=== PATIENT | female | born 1975 | race Two or more races ===

== ENCOUNTER 2020-03-29 15:42 | Outpatient (REF) | payer MEDICAID, SELFPAY ==
--- NOTE | 2020-03-29 | US_ITS ---
EXAMINATION: US VENOUS ULTRASOUND WITH DOPPLER LOWER EXTREMITY, LEFT CLINICAL INFORMATION: Edema. Pain. COMPARISON: Ultrasound venous Doppler study right lower extremity 12/05/2017 TECHNIQUE: Ultrasound of the deep veins is performed from the hip to the calf with compression sonography and color and pulse Doppler assessment. Spectral analysis with color-flow imaging is performed. FINDINGS: There is normal venous compression and respiratory variation and augmented flow. The visualized common femoral vein, superficial femoral vein, profunda femoral vein, popliteal vein, and the trifurcation region shows no evidence of deep venous thrombosis. There is no significant popliteal fossa cyst. If the patient's symptoms persist, followup ultrasound in 5 days 7 days might be of value to exclude proximal propagation from a non-visualized calf vein. US/US venous duplex LE IMPRESSION: No DVT demonstrated in the left lower extremity.
== END 2020-03-29 15:43 | disposition home or self-care (01) ==
LOC: HO.US 15:42
PROVIDERS: PCP Emergency Medicine; Visit Provider Emergency Medicine
DX: M79.662 Pain in left lower leg (principal); M79.89 Other specified soft tissue disorders
CPT/HCPCS: 93971

== ENCOUNTER 2020-04-29 13:42 | Outpatient (REF) | payer MEDICAID, SELFPAY ==
--- NOTE | 2020-04-29 | XR_ITS ---
EXAMINATION: XR SHOULDER, RIGHT XR KNEE, RIGHT CLINICAL INFORMATION: Right shoulder and right knee pain. COMPARISON: None TECHNIQUE: AP, Grashey, and scapular Y views of the right shoulder. AP, lateral, and sunrise views of the right knee. FINDINGS: RIGHT SHOULDER: No acute fracture or dislocation. Small acromioclavicular marginal osteophytes. Small subacromial spurring. No osseous erosion. RIGHT KNEE: No acute fracture or dislocation. Mild lateral compartment joint space narrowing. Tricompartmental marginal osteophytes. Chondrocalcinosis versus multiple small loose bodies. Small joint effusion. XR/XR shoulder RT min 2V IMPRESSION: Right shoulder: Mild acromioclavicular osteoarthritis and small lateral subacromial spurs. Right knee: Mild tricompartmental osteoarthritis. Chondrocalcinosis versus multiple small loose bodies. Small joint effusion.
--- NOTE | 2020-04-29 | XR_ITS ---
EXAMINATION: XR SHOULDER, RIGHT XR KNEE, RIGHT CLINICAL INFORMATION: Right shoulder and right knee pain. COMPARISON: None TECHNIQUE: AP, Grashey, and scapular Y views of the right shoulder. AP, lateral, and sunrise views of the right knee. FINDINGS: RIGHT SHOULDER: No acute fracture or dislocation. Small acromioclavicular marginal osteophytes. Small subacromial spurring. No osseous erosion. RIGHT KNEE: No acute fracture or dislocation. Mild lateral compartment joint space narrowing. Tricompartmental marginal osteophytes. Chondrocalcinosis versus multiple small loose bodies. Small joint effusion. XR/XR knee RT 3V IMPRESSION: Right shoulder: Mild acromioclavicular osteoarthritis and small lateral subacromial spurs. Right knee: Mild tricompartmental osteoarthritis. Chondrocalcinosis versus multiple small loose bodies. Small joint effusion.
== END 2020-04-29 13:43 | disposition home or self-care (01) ==
LOC: HO.XRAY 13:42
PROVIDERS: PCP Family Medicine; Visit Provider Family Medicine
DX: M25.511 Pain in right shoulder (principal); M25.561 Pain in right knee
CPT/HCPCS: 73030; 73562

== ENCOUNTER 2020-05-11 13:00 | Outpatient (REF) | payer MEDICAID, SELFPAY ==
--- NOTE | 2020-05-11 11:11 | US_ITS ---
EXAMINATION: US VENOUS ULTRASOUND WITH DOPPLER LOWER EXTREMITY, BILATERAL CLINICAL INFORMATION: Bilateral lower extremity swelling and pain. COMPARISON: Left lower extremity DVT study done on 03/29/2020. TECHNIQUE: Ultrasound of the deep veins is performed from the hip to the calf with compression sonography and color and pulse Doppler assessment. Spectral analysis with color-flow imaging is performed. FINDINGS: Slightly technically limited study since patient was unable to tolerate adequate compression. RIGHT: There is normal venous compression and respiratory variation and augmented flow. The visualized common femoral vein, superficial femoral vein, profunda femoral vein, popliteal vein, and the trifurcation region shows no evidence of deep venous thrombosis. There is no significant popliteal fossa cyst. LEFT: There is normal venous compression and respiratory variation and augmented flow. The visualized common femoral vein, superficial femoral vein, profunda femoral vein, popliteal vein, and the trifurcation region shows no evidence of deep venous thrombosis. There is no significant popliteal fossa cyst. If the patient's symptoms persist, followup ultrasound in 5 days 7 days might be of value to exclude proximal propagation from a non-visualized calf vein. US/US venous duplex LE BI IMPRESSION: No DVT demonstrated in the bilateral lower extremity.
== END 2020-05-11 13:01 | disposition home or self-care (01) ==
LOC: HO.US 13:00
PROVIDERS: PCP Family Medicine; Visit Provider Family Medicine
DX: R60.0 Localized edema (principal); M79.89 Other specified soft tissue disorders; M79.605 Pain in left leg; M79.604 Pain in right leg
CPT/HCPCS: 93970

== ENCOUNTER 2020-06-14 10:40 | Emergency (ER) | payer MEDICAID, SELFPAY ==
--- NOTE | ~2020-06-14 | XR_ITS ---
EXAMINATION: XR CHEST CLINICAL INFORMATION: Question aspiration pneumonia. COMPARISON: 06/17/2019 TECHNIQUE: Frontal view of the chest was obtained. FINDINGS: Spinal hardware in place. The lungs are well expanded. Mild streaky opacities are seen at the right base. No edema or effusion. No pneumothorax. The cardiomediastinal silhouette is within normal limits. No acute osseous abnormality. XR/XR chest 1V IMPRESSION: Streaky right basilar opacities are noted which could be auto claim representative of atelectasis, although aspiration is possible.
[2020-06-14 10:51] VITALS: BP 128/82; PULSE 116; RESP 20; TEMP 37.1; O2SAT 95; BMI 45.1
[2020-06-14 12:23] LABS: Basophils Absolute Auto 0.1 X10*3/uL (0.0-0.2); Basophils Percent Auto 0.2 % (0-2); Hematocrit 43.7 % (37-47); Hemoglobin 13.3 g/dl (12.0-16.0); Imm Gran Abs Auto 0.23 X10*3/uL (0.00-0.03); Imm Gran Pct Auto 0.9 % (0.0-0.4); Lymphocytes Absolute Auto 1.4 X10*3/uL (1.2-4.9); Lymphocytes Percent Auto 5.9 % (20-40); MANUAL DIFF FLAG SCAN; Mean Corpuscular HGB Conc 30.4 g/dl (31.0-35.0); Mean Corpuscular Volume 82.3 fL (80-98); Monocytes Absolute Auto 1.2 X10*3/uL (0.1-1.2); Monocytes Percent Auto 4.9 % (2-11); Neutrophils Absolute Auto 21.4 X10*3/uL (2.0-8.3); Neutrophils Percent Auto 88.1 % (45-73); Platelet Count 254 X10*3/uL (160-400); Red Blood Count 5.31 X10*6/uL (4.20-5.50); Red Cell Distribution Width 16.3 % (11.0-16.0); SCAN SMEAR FLAG 1; White Blood Count 24.3 X10*3/uL (4.8-10.8)
[2020-06-14 12:51] LABS: Alanine Aminotransferase 22 U/L (0-31); Albumin Level 4.2 g/dL (3.5-5.0); Alkaline Phosphatase 75 U/L (39-117); Aspartate Amino Transferase 18 U/L (5-31); Bilirubin Direct 0.4 mg/dL (0.0-0.5); Bilirubin Total 0.8 mg/dL (0.0-1.0); Blood Urea Nitrogen 15 mg/dL (9-16); Calcium 9.3 mg/dL (8.4-10.2); Creatinine Clr Calc Pharmacy 131.2; Estimated Glomerular Filt Rate > 60; Glucose Random 103 mg/dL (60-115); Lipase 20 U/L (8-78); Total Protein 7.4 g/dL (6.5-8.0)
[2020-06-14 13:11] LABS: Anion Gap 13 (12-20); Carbon Dioxide 29 mmol/L (22-29); Chloride 103 mmol/L (96-108); Potassium 3.9 mmol/L (3.3-5.1); Sodium 141 mmol/L (135-145)
[2020-06-14 13:45] LABS: SLIDE REVIEW VERIFIED
[2020-06-14 15:12] LABS: Glucose Urine UA NEG (NEG); Leukocyte Esterase Urine TRACE (NEG); Nitrite Urine POS (NEG); PH 5.5 (5.0-8.0); Specific Gravity - Urine >= 1.030 (1.005-1.025); UACC Culture Trigger YES; Urine Blood NEG (NEG); Urine Ketones 15 MG/DL (NEG); Urine Protein TRACE MG/DL (NEG-TRACE)
[2020-06-14 15:13] LABS: Appearance Urine CLOUDY; Color Urine YELLOW
[2020-06-14 15:25] LABS: Amorphous Sediment Urine 3+ /LPF; Bacteria Urine TRACE /LPF; Mucus Urine 2+ /LPF; RBC Urine 0-2 /HPF (0); Squamous Epithelial Cell Urine 2+ /LPF
[2020-06-14 15:26] LABS: UPreg QC Valid YES; Urine Pregnancy NEGATIVE (NEGATIVE)
--- NOTE | 2020-06-14 15:40 | ED.NAVMDI ---
HPI - Nausea/Vomiting/Diarrhea General Chief complaint: Nausea/Vomiting/Diarrhea Stated complaint: choking sensation Time Seen by Provider: 06/14/20 14:10 Source: patient, family (Mother) and lacquer coater Mode of arrival: ambulatory Limitations: no limitations History of Present Illness HPI Narrative: 45-year-old female who is with history of mental challenge, patient yesterday was eating rice with checking patient shook on piece of chicken last night, patient refused to eat since last night, patient was not able to swallow liquids. Patient was seen in the emergency department, by then patient is able to swallow fluids with no vomiting, patient feels swelling is passing down, patient now feels hungry again was able to tolerate p.o. intake, patient has no coughing, no fever, no hypoxia. Patient had a history of aspiration pneumonia. Patient only complained of slight pain in the upper throat area but able to tolerate p.o. intake now. No abdominal pain. Related Data Previous Rx's Medication Instructions Recorded omeprazole magnesium [Prilosec OTC] 20 mg PO BID #30 tab 06/14/20 Allergies Allergy/AdvReac Type Severity Reaction Status Date / Time No Known Allergies Allergy Unknown Unverified 12/25/19 15:35 [No Known Allergies*] Review of Systems Review of Systems: All other systems are reviewed and are negative Constitutional: Reports as per HPI and Reports no additional constitutional complaints Eyes: Reports as per HPI and Reports no additional eye complaints Reports system reviewed and no additional complaints, except as documented Cardiovascular: Reports as per HPI and Reports no additional cardiovascular complaints Respiratory: Reports as per HPI and Reports no additional respiratory complaints Gastrointestinal: Reports as per HPI and Reports no additional gastrointestinal complaints Genitourinary: Reports no additional female genitourinary complaints Musculoskeletal: Reports no additional musculoskeletal complaints Skin/Breast: Reports system reviewed and no additional complaints, except as docu Psychiatric: Reports no additional psychiatric complaints Endocrine: Reports no additional endocrine complaints Hematologic/Lymphatic: Reports no additional hematologic/lymphatic complaints Allergic/Immunologic: Reports no additional allergic/immunologic complaints Reports system reviewed and no additional complaints, except as documented and Reports Abnormal speech present [facility] Past Medical History Medical History Asthma Oxygen desaturation during sleep Social History Social History Advance Directives: No Advance Directives Information Provided: No Physical Exam Vital Signs: Vital Signs: Last Vital Signs Temp 98.8 F 06/14/20 10:51 Pulse 116 H 06/14/20 10:51 Resp 20 06/14/20 10:51 BP 128/82 06/14/20 10:51 Pulse Ox 95 06/14/20 10:51 Body Mass Index 45.1 Course Course Course Narrative: Assessment and plan. 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 intake. Patient has a leukocytosis of 23,000 which is a concern, patient's exam/chest x-ray/vital signs not indicated for aspiration pneumonia. Will discharge the patient with percussion to come back if any fever or coughing. MDM - Nausea/Vomiting/Diarrhea Lab Data Attestation: I reviewed the patient's lab results. Result diagrams: 06/14/20 12:01 06/14/20 12:01 Labs: Lab Results 06/14/20 06/14/20 06/14/20 Range/Units 12:01 12:01 15:04 WBC 24.3 H (4.8-10.8) X10*3/uL RBC 5.31 (4.20-5.50) X10*6/uL Hgb 13.3 (12.0-16.0) g/dl Hct 43.7 (37-47) % MCV 82.3 (80-98) fL MCH 25.0 L (27.0-33.0) pg MCHC 30.4 L (31.0-35.0) g/dl RDW 16.3 H (11.0-16.0) % Plt Count 254 (160-400) X10*3/uL MPV 12.0 (9.4-12.3) fL Immature Gran % (Auto) 0.9 H (0.0-0.4) % Neut % (Auto) 88.1 H (45-73) % Lymph % (Auto) 5.9 L (20-40) % [place]y % (Auto) 4.9 (2-11) % Eos % (Auto) 0.0 (0-4) % Baso % (Auto) 0.2 (0-2) % Lymph # (Auto) 1.4 (1.2-4.9) X10*3/uL [place] # (Auto) 1.2 (0.1-1.2) X10*3/uL Eos # (Auto) 0.0 (0.0-0.4) X10*3/uL Baso # (Auto) 0.1 (0.0-0.2) X10*3/uL Abs Immat Gran (auto) 0.23 H (0.00-0.03) X10*3/uL Absolute Neuts (auto) 21.4 H (2.0-8.3) X10*3/uL Absolute Nucleated RBC 0.000 (0.0-0.012) X10*3/uL Nucleated RBC % (auto) 0.0 (0.0-0.2) /100WBC Smear Tech's Comments VERIFIED Sodium 141 (135-145) mmol/L Potassium 3.9 (3.3-5.1) mmol/L Chloride 103 (96-108) mmol/L Carbon Dioxide 29 (22-29) mmol/L Anion Gap 13 (12-20) BUN 15 (9-16) mg/dL Creatinine 0.64 (0.5-1.4) mg/dL Estim Creat Clear Calc 131.2 Estimated GFR > 60 Random Glucose 103 (60-115) mg/dL Calcium 9.3 (8.4-10.2) mg/dL Total Bilirubin 0.8 (0.0-1.0) mg/dL Direct Bilirubin 0.4 (0.0-0.5) mg/dL AST 18 (5-31) U/L ALT 22 (0-31) U/L Alkaline Phosphatase 75 (39-117) U/L Total Protein 7.4 (6.5-8.0) g/dL Albumin 4.2 (3.5-5.0) g/dL Lipase 20 (8-78) U/L Urine Color YELLOW Urine Appearance CLOUDY Urine pH 5.5 (5.0-8.0) Ur Specific [place] >= 1.030 H (1.005-1.025) Urine Protein TRACE (NEG-TRACE) MG/DL Urine Glucose (UA) NEG (NEG) MG/DL Urine Ketones 15 (NEG) MG/DL Urine Blood NEG (NEG) Urine Nitrite POS H (NEG) Ur Leukocyte Esterase TRACE H (NEG) Urine RBC 0-2 (0) /HPF Urine WBC 1-4 (0-4) /HPF Ur Squamous Epith Cells 2+ /LPF Amorphous Sediment 3+ /LPF Urine Bacteria TRACE /LPF Urine Mucus 2+ /LPF Urine Test (NEGATIVE) 06/14/20 Range/Units 15:04 WBC (4.8-10.8) X10*3/uL RBC (4.20-5.50) X10*6/uL Hgb (12.0-16.0) g/dl Hct (37-47) % MCV (80-98) fL MCH (27.0-33.0) pg MCHC (31.0-35.0) g/dl RDW (11.0-16.0) % Plt Count (160-400) X10*3/uL MPV (9.4-12.3) fL Immature Gran % (Auto) (0.0-0.4) % Neut % (Auto) (45-73) % Lymph % (Auto) (20-40) % [place]y % (Auto) (2-11) % Eos % (Auto) (0-4) % Baso % (Auto) (0-2) % Lymph # (Auto) (1.2-4.9) X10*3/uL [place] # (Auto) (0.1-1.2) X10*3/uL Eos # (Auto) (0.0-0.4) X10*3/uL Baso # (Auto) (0.0-0.2) X10*3/uL Abs Immat Gran (auto) (0.00-0.03) X10*3/uL Absolute Neuts (auto) (2.0-8.3) X10*3/uL Absolute Nucleated RBC (0.0-0.012) X10*3/uL Nucleated RBC % (auto) (0.0-0.2) /100WBC Smear Tech's Comments Sodium (135-145) mmol/L Potassium (3.3-5.1) mmol/L Chloride (96-108) mmol/L Carbon Dioxide (22-29) mmol/L Anion Gap (12-20) BUN (9-16) mg/dL Creatinine (0.5-1.4) mg/dL Estim Creat Clear Calc Estimated GFR Random Glucose (60-115) mg/dL Calcium (8.4-10.2) mg/dL Total Bilirubin (0.0-1.0) mg/dL Direct Bilirubin (0.0-0.5) mg/dL AST (5-31) U/L ALT (0-31) U/L Alkaline Phosphatase (39-117) U/L Total Protein (6.5-8.0) g/dL Albumin (3.5-5.0) g/dL Lipase (8-78) U/L Urine Color Urine Appearance Urine pH (5.0-8.0) Ur Specific [place] (1.005-1.025) Urine Protein (NEG-TRACE) MG/DL Urine Glucose (UA) (NEG) MG/DL Urine Ketones (NEG) MG/DL Urine Blood (NEG) Urine Nitrite (NEG) Ur Leukocyte Esterase (NEG) Urine RBC (0) /HPF Urine WBC (0-4) /HPF Ur Squamous Epith Cells /LPF Amorphous Sediment /LPF Urine Bacteria /LPF Urine Mucus /LPF Urine Test NEGATIVE (NEGATIVE) Discharge Plan Discharge Clinical Impression: Esophageal obstruction due to food impaction Leukocytosis Qualifiers: Leukocytosis type: unspecified Qualified Code(s): D72.829 - Elevated white blood cell count, unspecified Patient Disposition: Home, Self-Care Instructions: Esophagitis (ED) Additional Instructions: 1. Come back to the emergency department if any fever or difficulty breathing or coughing. 2. Can resume normal activities. Prescriptions: New omeprazole magnesium [Prilosec OTC] 20 mg tablet,delayed release (DR/EC) 20 mg PO BID Qty: 30 RF: 0 Referrals: Miranda Maravilla DO [Primary Care Provider] - 2 days
== END 2020-06-14 16:07 | disposition home or self-care (01) ==
PROVIDERS: Emergency Provider Emergency Medicine; PCP Family Medicine
DX: T18.128D Food in esophagus causing other injury, subsequent encounter (principal); X58.XXXD Exposure to other specified factors, subsequent encounter; D72.829 Elevated white blood cell count, unspecified
CPT/HCPCS: 36415; 71045; 80048; 80076; 81001; 81003; 81025; 83690; 85025; 87086; 99283

== ENCOUNTER 2020-06-24 12:29 | Outpatient (REF) | payer MEDICAID, SELFPAY ==
--- NOTE | ~2020-06-24 | XR_ITS ---
EXAMINATION: XR CHEST CLINICAL INFORMATION: Cough. COMPARISON: Chest 06/14/2020 TECHNIQUE: Two views of the chest were obtained. FINDINGS: The lungs are well expanded with no acute process. The heart size and pulmonary vascularity is normal. There are 2 Aguayo rods extending from upper thoracic to upper lumbar spine. Otherwise, no gross bony abnormality. XR/XR chest 2V IMPRESSION: Unremarkable chest exam.
== END 2020-06-24 12:30 | disposition home or self-care (01) ==
LOC: HO.XRAY 12:29
PROVIDERS: PCP Family Medicine; Visit Provider Family Medicine
DX: R05 Cough (principal)
CPT/HCPCS: 71046

== ENCOUNTER 2020-08-02 13:50 | Outpatient (REF) | payer MEDICAID, SELFPAY ==
--- NOTE | ~2020-08-02 | XR_ITS ---
EXAMINATION: THORACIC AND LUMBAR SPINE X-RAY CLINICAL INFORMATION: Pain. History of scoliosis. COMPARISON: Previous chest x-ray June 2019 TECHNIQUE: 3 views of the thoracic spine and 3 views of the lumbar spine FINDINGS: Thoracic spine: There is a severe scoliosis of the mid and lower thoracic spine to the right. There is posterior fusion hardware with rods from T7-L1. Orthopedic hardware appears intact. This is unchanged from previous chest x-rays. No fracture, dislocation or bone lesion is seen. Paraspinal soft tissues are normal. Lumbar spine: There is scoliosis of the lumbar spine to the left. Bone alignment is otherwise normal. No fracture or dislocation is seen. Disc spaces are normal. There is lower lumbar spine facet arthritis. Posterior fusion hardware in the lower thoracic line is noted. XR/XR lumbar spine 2-3V IMPRESSION: Severe thoracolumbar scoliosis posterior fusion hardware from T7 to L1. Lower lumbar spine facet arthritis.
--- NOTE | ~2020-08-02 | XR_ITS ---
EXAMINATION: THORACIC AND LUMBAR SPINE X-RAY CLINICAL INFORMATION: Pain. History of scoliosis. COMPARISON: Previous chest x-ray June 2019 TECHNIQUE: 3 views of the thoracic spine and 3 views of the lumbar spine FINDINGS: Thoracic spine: There is a severe scoliosis of the mid and lower thoracic spine to the right. There is posterior fusion hardware with rods from T7-L1. Orthopedic hardware appears intact. This is unchanged from previous chest x-rays. No fracture, dislocation or bone lesion is seen. Paraspinal soft tissues are normal. Lumbar spine: There is scoliosis of the lumbar spine to the left. Bone alignment is otherwise normal. No fracture or dislocation is seen. Disc spaces are normal. There is lower lumbar spine facet arthritis. Posterior fusion hardware in the lower thoracic line is noted. XR/XR thoracic spine 3V IMPRESSION: Severe thoracolumbar scoliosis posterior fusion hardware from T7 to L1. Lower lumbar spine facet arthritis.
== END 2020-08-02 13:51 | disposition home or self-care (01) ==
LOC: HO.XRAY 13:50
PROVIDERS: PCP Family Medicine; Visit Provider Family Medicine
DX: M54.5 Low back pain (principal); M54.6 Pain in thoracic spine
CPT/HCPCS: 72072; 72100

== ENCOUNTER 2020-10-05 13:19 | Outpatient (REF) | payer MEDICAID, SELFPAY ==
--- NOTE | ~2020-10-05 | XR_ITS ---
EXAMINATION: XR KNEE, RIGHT CLINICAL INFORMATION: Pain. Fall. COMPARISON: Previous x-ray April 2020 TECHNIQUE: Four views of the right knee. FINDINGS: There is a fracture of the right fibular head. No other fracture. There is question of slight lateral subluxation of the tibia with respect to the femur on one of the oblique views. This is not appreciated on other views. Joint spaces are otherwise normal. There is a large joint effusion. There are well-corticated soft tissue calcifications or ossifications adjacent to the medial tibial plateau suggestive of old trauma. XR/XR knee RT 4V IMPRESSION: Acute fracture of the fibular head. Large joint effusion. Question slight lateral subluxation of the proximal tibia with respect to the distal femur seen on one of 2 oblique views.
== END 2020-10-05 13:20 | disposition home or self-care (01) ==
LOC: HO.XRAY 13:19
PROVIDERS: Absent Provider Family Medicine; PCP Family Medicine; Visit Provider Emergency Medicine
DX: M25.561 Pain in right knee (principal); Z91.81 History of falling
CPT/HCPCS: 73564

== ENCOUNTER 2021-03-04 09:04 | Outpatient (REF) | payer MEDICAID, SELFPAY ==
--- NOTE | ~2021-03-04 | MM_ITS ---
EXAMINATION: MM SCREENING DIGITAL BREAST TOMOSYNTHESIS, BILATERAL CLINICAL INFORMATION: Screening. Asymptomatic. The lifetime risk of breast cancer based on the Tyrer-Cuzick Model is 10%. COMPARISON: Mammography: 12/03/2019, 07/11/2018, 10/05/2010 TECHNIQUE: Digital breast tomosynthesis is performed in both the craniocaudal and mediolateral oblique views along with computer-aided detection (CAD). Synthesized 2D images are generated from the tomosynthesis. Additional right CC and right MLO views are provided. FINDINGS: There are scattered areas of fibroglandular density (ACR BI-RADS breast composition Category b). There are no significant masses, abnormal calcifications, or other abnormalities. Breast tissue composition borders on predominantly fatty. Background fibroglandular stromal densities are stable. No developing density. No significant changes. MM/MM tomosynthesis screening BI IMPRESSION: No mammographic evidence of malignancy. ASSESSMENT: BI-RADS 1: Negative RECOMMENDATION: Routine annual mammography screening. This patient's information was entered into a reminder system with a target due date for their next mammogram.
== END 2021-03-04 09:05 | disposition home or self-care (01) ==
LOC: HO.MAMMO 09:04
PROVIDERS: Visit Provider Family Medicine
DX: Z12.31 Encounter for screening mammogram for malignant neoplasm of breast (principal)
CPT/HCPCS: 77063; 77067

== ENCOUNTER → 2021-05-04 13:43 | Outpatient (BNVA) | payer MEDICAID, SELFPAY | PROVIDERS: PCP Family Medicine; Visit Provider Internal Medicine Pulmonary Disease | DX: G47.33 Obstructive sleep apnea (adult) (pediatric) (principal); J45.909 Unspecified asthma, uncomplicated | CPT/HCPCS: 99202 ==

== ENCOUNTER → 2021-05-12 13:02 | Outpatient (BNVA) | payer MEDICAID, SELFPAY | PROVIDERS: PCP Family Medicine; Referring Provider Family Medicine; Visit Provider Nurse Practitioner | DX: Z12.11 Encounter for screening for malignant neoplasm of colon (principal); G47.33 Obstructive sleep apnea (adult) (pediatric); E66.01 Morbid (severe) obesity due to excess calories; F79 Unspecified intellectual disabilities | CPT/HCPCS: 99202 ==

== ENCOUNTER → 2021-06-06 13:20 | Outpatient (REF) | payer MEDICAID, SELFPAY | LOC: HO.SL 13:20 | PROVIDERS: PCP Family Medicine; Visit Provider Internal Medicine Pulmonary Disease | DX: G47.33 Obstructive sleep apnea (adult) (pediatric) (principal) | CPT/HCPCS: 95806 ==

== ENCOUNTER → 2021-06-17 14:18 | Outpatient (BNVA) | payer MEDICAID, SELFPAY | PROVIDERS: PCP Family Medicine; Visit Provider Internal Medicine Pulmonary Disease | DX: J45.909 Unspecified asthma, uncomplicated (principal); G47.33 Obstructive sleep apnea (adult) (pediatric); R06.00 Dyspnea, unspecified | CPT/HCPCS: 99212 ==

== ENCOUNTER 2021-07-18 15:01 | Outpatient (REF) | payer MEDICAID, SELFPAY ==
--- NOTE | ~2021-07-18 | XR_ITS ---
EXAMINATION: XR chest 2V CLINICAL INFORMATION: Reason for Exam COUGH, UNSPECIFIED COMPARISON: Chest radiograph 06/24/2020 TECHNIQUE: 2 views of the chest XR/XR chest 2V FINDINGS/IMPRESSION: A 0.8 cm nodular opacity overlying the left upper lung, which may reflect a pulmonary nodule. Recommend correlation with CT chest. No pneumothorax. No pleural effusion. Cardiac silhouette is mildly enlarged. Spinal fusion hardware is noted in the thoracic spine. The report will be called to the ordering clinician by a [place] [facility] [employer] [facility] [employer].
== END 2021-07-18 15:02 | disposition home or self-care (01) ==
LOC: HO.XRAY 15:01
PROVIDERS: Absent Provider Family Medicine; PCP Family Medicine; Visit Provider Nurse Practitioner Family
DX: R05.9 Cough, unspecified (principal)
CPT/HCPCS: 71046

== ENCOUNTER → 2021-08-29 14:46 | Outpatient (BNVA) | payer MEDICAID, SELFPAY | PROVIDERS: PCP Family Medicine; Referring Provider Internal Medicine Pulmonary Disease; Visit Provider Internal Medicine Cardiovascular Disease | DX: R06.00 Dyspnea, unspecified (principal); R07.89 Other chest pain | CPT/HCPCS: 93005; 99202 ==

== ENCOUNTER 2021-09-27 17:40 | Emergency (ER) | payer MEDICAID, SELFPAY ==
--- NOTE | ~2021-09-27 | XR_ITS ---
EXAMINATION: XR CHEST CLINICAL INFORMATION: Dyspnea COMPARISON: 07/18/2021 TECHNIQUE: Frontal view of the chest was obtained. FINDINGS: The patient is rotated. The cardiomediastinal silhouette is stable. Patchy central/perihilar opacities. No pleural effusion or pneumothorax. 2 radiographs again noted within the thoracic spine. XR/XR chest 1V IMPRESSION: Patchy central/perihilar opacities may reflect edema. No pleural effusions.
[2021-09-27 18:42] VITALS: BP 152/97; PULSE 121; RESP 22; TEMP 37.2; O2SAT 75; BMI 36.6
--- NOTE | 2021-09-27 18:47 | ECG_ITS ---
Test Reason : SOB Blood Pressure : / mmHG Vent. Rate : 095 BPM Atrial Rate : 095 BPM P-R Int : 114 ms QRS Dur : 082 ms QT Int : 338 ms P-R-T Axes : 052 053 026 degrees QTc Int : 424 ms Normal sinus rhythm Normal ECG When compared with ECG of 14-SEP-2018 05:20, Non-specific change in ST segment in Lateral leads Nonspecific T wave abnormality no longer evident in Lateral leads Referred By: Generic ED Physician Electronically Signed By:NINO GROSSMAN MD
[2021-09-27 19:47] LABS: Hematocrit 44.1 % (37.0-47.0); Hemoglobin 12.2 g/dl (12.0-16.0); Mean Corpuscular HGB Conc 27.7 g/dl (31.0-35.0); Mean Corpuscular Volume 79.6 fL (80.0-98.0); Mean Platelet Volume 10.5 fL (9.4-12.3); Platelet Count 271 X10*3/uL (160-400); Red Blood Count 5.54 X10*6/uL (4.20-5.50); Red Cell Distribution Width 18.2 % (11.0-16.0)
[2021-09-27 19:58] LABS: Anion Gap 11 (12-20); Blood Urea Nitrogen 12 mg/dL (9-16); Calcium 8.8 mg/dL (8.4-10.2); Carbon Dioxide 37 mmol/L (22-29); Chloride 99 mmol/L (96-108); Creatinine Clr Calc Pharmacy 146.9; Estimated Glomerular Filt Rate > 60; Glucose Random 98 mg/dL (60-115); MANUAL DIFF FLAG NO; Potassium 4.6 mmol/L (3.3-5.1); Sodium 142 mmol/L (135-145)
[2021-09-27 19:59] LABS: Basophils Percent Auto 0.2 % (0-2); COVID-19 Test Negative (Negative); Eosinophils Absolute Auto 0.3 X10*3/uL (0.0-0.4); Eosinophils Percent Auto 3.8 % (0-4); Hemoglobin 12.1 g/dl (12.0-16.0); IDNOW Serial# 16C4AD1C; Imm Gran Abs Auto 0.05 X10*3/uL (0.00-0.03); Imm Gran Pct Auto 0.6 % (0.0-0.4); Lymphocytes Absolute Auto 1.6 X10*3/uL (1.2-4.9); Lymphocytes Percent Auto 17.5 % (20-40); Mean Corpuscular HGB Conc 28.1 g/dl (31.0-35.0); Mean Corpuscular Hemoglobin 22.4 pg (27.0-33.0); Mean Corpuscular Volume 79.5 fL (80.0-98.0); Mean Platelet Volume 10.6 fL (9.4-12.3); Monocytes Absolute Auto 0.5 X10*3/uL (0.1-1.2); Neutrophils Absolute Auto 6.5 x10*3/uL (2.0-8.3); Neutrophils Percent Auto 71.9 % (45-73); Platelet Count 276 X10*3/uL (160-400); Red Blood Count 5.41 X10*6/uL (4.20-5.50); Red Cell Distribution Width 17.8 % (11.0-16.0)
--- NOTE | 2021-09-27 20:01 | ED.SOB ---
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 Related Data Previous Rx's Medication Instructions Recorded omeprazole magnesium 20 mg 20 mg PO BID #30 tabs 06/14/20 tablet,delayed release (Prilosec OTC) arformoterol 15 mcg/2 mL solution 2 ml inhalation BID 30 days #120 mL 05/04/21 for nebulization (Brovana) ipratropium 0.5 mg-albuterol 3 mg 3 ml inhalation TID #270 mL 05/04/21 (2.5 mg base)/3 mL nebulization soln furosemide 20 mg tablet (Lasix) 20 mg PO QAM 30 days #30 tabs 06/17/21 albuterol sulfate 90 mcg/actuation 2 puff inhalation Q4-6H PRN 09/27/21 aerosol inhaler (Ventolin HFA) shortness of breath or wheezing #8.5 grams prednisone 50 mg tablet 50 mg PO DAILY 4 days #4 tabs 09/27/21 Allergies Allergy/AdvReac Type Severity Reaction Status Date / Time No Known Allergies Allergy Unknown Verified 06/17/21 14:20 [No Known Allergies*] Review of Systems Review of Systems: pertinent positives and negatives as stated in HPI 10 review of systems is otherwise negative. [facility] Past Medical History Source: nursing notes reviewed Medical History Intellectual disability Oxygen desaturation during sleep Sleep apnea Surgical History History of esophagogastroduodenoscopy (EGD) History of open reduction and internal fixation (ORIF) procedure Status post spinal surgery Social History Social History Advance Directives: No Advance Directives Information Provided: No Physical Exam Vital Signs: Vital Signs: Last Vital Signs Temp 98.0 F 09/27/21 20:17 Pulse 89 09/27/21 20:17 Resp 16 09/27/21 20:17 BP 128/78 09/27/21 20:17 Pulse Ox 98 09/27/21 20:17 O2 Del Method 09/27/21 20:17 BMI result Body Mass Index 36.6 VITAL SIGNS: Reviewed. GENERAL: Well developed, well nourished, in no acute distress. HEAD: Normocephalic/atraumatic EYES: PERRLA, EOMI EARS: Ext canals without abnormality OROPHARYNX: no oral lesions noted, posterior pharynx clear LUNGS: good inspiratory effort, mild tachypnea decreased breath sounds. SpO2<75> responded well to being placed on 4 L via nasal cannula CARDIOVASCULAR: Regular rate and rhythm without noted murmurs, no JVD or lower extremity edema. ABDOMEN: Soft, non-tender, non-distended with bowel sounds. MUSCULOSKELETAL: No tenderness, deformities, or effusions noted on gross inspection. EXTREMITIES: No cyanosis, clubbing or edema. SKIN: Inspection of the skin reveals no rashes NEUROLOGIC: Alert and oriented x 4. Strength and sensation to light touch were grossly intact x 4. Course Course Course Narrative: 46-year-old female with history and clinical presentation suggestive of possible asthma exacerbation although the possibility of pneumonia or viral etiology. Review of patient's medication list she is noted to Review of all investigations most consistent with acute asthma exacerbation, albuterol treatment/Mag /steroids provided with improvement in symptoms. Patient not able to tolerate being off of oxygen. further treatments given in patient will be re-evaluated. In addition, patient provided with 40 mg of Lasix as it is noted that she does take Lasix at home and chest x-ray suggests venous congestion. Signed out to Dr Qiu. MDM - SOB/Dyspnea Lab Data Result diagrams: 09/27/21 19:34 09/27/21 19:34 Labs: Lab Results 09/27/21 09/27/21 09/27/21 Range/Units 19:34 19:34 19:34 WBC 9.0 (4.8-10.8) X10*3/uL RBC 5.54 H (4.20-5.50) X10*6/uL Hgb 12.2 (12.0-16.0) g/dl Hct 44.1 (37.0-47.0) % MCV 79.6 L (80.0-98.0) fL MCH 22.0 L (27.0-33.0) pg MCHC 27.7 L (31.0-35.0) g/dl RDW 18.2 H (11.0-16.0) % Plt Count 271 (160-400) X10*3/uL MPV 10.5 (9.4-12.3) fL Immature Gran % (Auto) (0.0-0.4) % Neut % (Auto) (45-73) % Lymph % (Auto) (20-40) % [place] % (Auto) (2-11) % Eos % (Auto) (0-4) % Baso % (Auto) (0-2) % Lymph # (Auto) (1.2-4.9) X10*3/uL [place] # (Auto) (0.1-1.2) X10*3/uL Eos # (Auto) (0.0-0.4) X10*3/uL Baso # (Auto) (0.0-0.2) X10*3/uL Abs Immat Gran (auto) (0.00-0.03) X10*3/uL Absolute Neuts (auto) (2.0-8.3) x10*3/uL Absolute Nucleated RBC 0.000 (0.0-0.012) X10*3/uL Nucleated RBC % (auto) 0.0 (0.0-0.2) /100WBC VBG pH (7.32-7.43) VBG pCO2 mmHg VBG pO2 mmHg VBG HCO3 (22-26) mmol/L VBG O2 Saturation % VBG Base Excess mmol/L Sodium 142 (135-145) mmol/L Potassium 4.6 (3.3-5.1) mmol/L Chloride 99 (96-108) mmol/L Carbon Dioxide 37 H (22-29) mmol/L Anion Gap 11 L (12-20) BUN 12 (9-16) mg/dL Creatinine 0.64 (0.5-1.4) mg/dL Estim Creat Clear Calc 146.9 Estimated GFR > 60 Random Glucose 98 (60-115) mg/dL Calcium 8.8 (8.4-10.2) mg/dL Total Bilirubin 0.3 (0.0-1.0) mg/dL Direct Bilirubin 0.2 (0.0-0.5) mg/dL AST 29 D (5-31) U/L ALT 30 (0-31) U/L Alkaline Phosphatase 83 (39-117) U/L Troponin I High Sens 3.5 (<3.5-17.0) ng/L B-Natriuretic Peptide 75 (<100) pg/mL Total Protein 7.2 (6.5-8.0) g/dL Albumin 3.9 (3.5-5.0) g/dL COVID-19 (TANIYA) (Negative) COVID-19 Clin Com 09/27/21 09/27/21 09/27/21 Range/Units 19:34 19:34 20:09 WBC 9.0 (4.8-10.8) X10*3/uL RBC 5.41 (4.20-5.50) X10*6/uL Hgb 12.1 (12.0-16.0) g/dl Hct 43.0 (37.0-47.0) % MCV 79.5 L (80.0-98.0) fL MCH 22.4 L (27.0-33.0) pg MCHC 28.1 L (31.0-35.0) g/dl RDW 17.8 H (11.0-16.0) % Plt Count 276 (160-400) X10*3/uL MPV 10.6 (9.4-12.3) fL Immature Gran % (Auto) 0.6 H (0.0-0.4) % Neut % (Auto) 71.9 (45-73) % Lymph % (Auto) 17.5 L (20-40) % [place] % (Auto) 6.0 (2-11) % Eos % (Auto) 3.8 (0-4) % Baso % (Auto) 0.2 (0-2) % Lymph # (Auto) 1.6 (1.2-4.9) X10*3/uL [place] # (Auto) 0.5 (0.1-1.2) X10*3/uL Eos # (Auto) 0.3 (0.0-0.4) X10*3/uL Baso # (Auto) 0.0 (0.0-0.2) X10*3/uL Abs Immat Gran (auto) 0.05 H (0.00-0.03) X10*3/uL Absolute Neuts (auto) 6.5 (2.0-8.3) x10*3/uL Absolute Nucleated RBC 0.000 (0.0-0.012) X10*3/uL Nucleated RBC % (auto) 0.0 (0.0-0.2) /100WBC VBG pH 7.41 (7.32-7.43) VBG pCO2 60 mmHg VBG pO2 67 mmHg VBG HCO3 39 H (22-26) mmol/L VBG O2 Saturation 92.0 % VBG Base Excess 11.8 mmol/L Sodium (135-145) mmol/L Potassium (3.3-5.1) mmol/L Chloride (96-108) mmol/L Carbon Dioxide (22-29) mmol/L Anion Gap (12-20) BUN (9-16) mg/dL Creatinine (0.5-1.4) mg/dL Estim Creat Clear Calc Estimated GFR Random Glucose (60-115) mg/dL Calcium (8.4-10.2) mg/dL Total Bilirubin (0.0-1.0) mg/dL Direct Bilirubin (0.0-0.5) mg/dL AST (5-31) U/L ALT (0-31) U/L Alkaline Phosphatase (39-117) U/L Troponin I High Sens (<3.5-17.0) ng/L B-Natriuretic Peptide (<100) pg/mL Total Protein (6.5-8.0) g/dL Albumin (3.5-5.0) g/dL COVID-19 (TANIYA) Negative (Negative) COVID-19 Clin Com See Note Discharge Plan Discharge Clinical Impression: Asthma exacerbation, GEORGE (obstructive sleep apnea), Intellectual disability, Morbid obesity Patient Disposition: Still a Patient Instructions: Asthma (ED) Additional Instructions: 1. Reanudar todos los medicamentos caseros seg?n lo prescrito. 2. Complete todo el curso de esteroides que le dunne proporcionado. 3. Seguimiento con el proveedor de atenci?n primaria en 2-3 d?as. Regrese a la jose de emergencias si los s?ntomas empeoran. Prescriptions: New prednisone 50 mg tablet 50 mg PO DAILY 4 Days Qty: 4 0RF albuterol sulfate [Ventolin HFA] 90 mcg/actuation HFA aerosol inhaler 2 puff inhalation Q4-6H PRN (Reason: shortness of breath or wheezing) Qty: 8.5 0RF No Action omeprazole magnesium [Prilosec OTC] 20 mg tablet,delayed release (DR/EC) 20 mg PO BID Qty: 30 0RF ipratropium-albuterol 0.5 mg-3 mg(2.5 mg base)/3 mL solution for nebulization 3 ml inhalation TID Qty: 270 6RF arformoterol [Brovana] 15 mcg/2 mL solution for nebulization 2 ml inhalation BID 30 Days Qty: 120 6RF furosemide [Lasix] 20 mg tablet 20 mg PO QAM 30 Days Qty: 30 3RF Referrals: Miranda Maravilla DO [Primary Care Provider] -
[2021-09-27] MEDS: Albuterol Sulfate (0.083%) 2.5 MG/3 ML VIAL.NEB 10 MG INHALE ×2 (20:03→21:33)
[2021-09-27 20:04] VITALS: PULSE 90; RESP 18; O2SAT 98
[2021-09-27 20:08] LABS: B Type Natriuretic Peptide 75 pg/mL (<100); Troponin-I High Sensitivity 3.5 ng/L (<3.5-17.0)
[2021-09-27 20:17] VITALS: BP 128/78; PULSE 89; RESP 16; TEMP 36.7; O2SAT 98
[2021-09-27 20:19] LABS: Venous Blood Gas Refer to POC result
[2021-09-27 20:21] LABS: Albumin Level 3.9 g/dL (3.5-5.0); Aspartate Amino Transferase 29 U/L (5-31); Bilirubin Direct 0.2 mg/dL (0.0-0.5); Bilirubin Total 0.3 mg/dL (0.0-1.0); Total Protein 7.2 g/dL (6.5-8.0)
[2021-09-27] MEDS: methylPREDNISolone Sod Succ 125 MG/2 ML VIAL IVPUSH (20:21)
[2021-09-27] MEDS: Magnesium Sulfate/H2O 2 GM/50 ML PIGGYBACK IV (20:21)
[2021-09-27 20:34] LABS: Alanine Aminotransferase 30 U/L (0-31); Alkaline Phosphatase 83 U/L (39-117)
[2021-09-27 21:13] LABS: VBG Base Excess 11.8 mmol/L; VBG HCO3 39 mmol/L (22-26); VBG pCO2 60 mmHg; VBG pO2 67 mmHg
[2021-09-27 21:14] LABS: VBG pH 7.41 (7.32-7.43)
[2021-09-27] MEDS: Furosemide 40 MG/4 ML VIAL IVPUSH (21:53)
[2021-09-27 22:00] VITALS: BP 162/80; PULSE 106; RESP 16; TEMP 36.7; O2SAT 98
[2021-09-27 22:18] LABS: Appearance Urine CLEAR; Color Urine YELLOW; Glucose Urine UA NEG (NEG); Leukocyte Esterase Urine 1+ (NEG); Nitrite Urine NEG (NEG); Specific Gravity - Urine 1.025 (1.005-1.025); UACC Culture Trigger YES; Urine Blood NEG (NEG); Urine Ketones NEG (NEG); Urine Protein NEG (NEG-TRACE)
[2021-09-27 22:36] LABS: Bacteria Urine 1+ /LPF; Squamous Epithelial Cell Urine 1+ /LPF
[2021-09-28] VITALS: BP 126/74; PULSE 106; RESP 19; TEMP 36.9; O2SAT 96
--- NOTE | 2021-09-28 00:41 | PC.NURSE ---
Reviewed discharge instruction with family member. Caregiver verbalized understanding. Pt wheeled out. Report to NYDIA Ford.
== END 2021-09-28 00:48 | disposition home or self-care (01) ==
PROVIDERS: Student in an Organized Health Care Education/Training Program; Emergency Provider Internal Medicine; PCP Family Medicine
DX: R06.00 Dyspnea, unspecified (principal); J45.901 Unspecified asthma with (acute) exacerbation; G47.33 Obstructive sleep apnea (adult) (pediatric); F79 Unspecified intellectual disabilities; E66.01 Morbid (severe) obesity due to excess calories; Z20.822 Contact with and (suspected) exposure to COVID-19; Z79.899 Other long term (current) drug therapy
CPT/HCPCS: 36415; 71045; 80048; 80076; 81001; 82803; 83880; 84484; 85025; 85027; 87086; 87635; 93005; 94640; 94644; 96365; 96366; 96375; 99284; J1940; J2930; J3475

== ENCOUNTER 2021-10-04 09:09 | Outpatient (REF) | payer MEDICAID, SELFPAY ==
--- NOTE | ~2021-10-04 | CT_ITS ---
EXAMINATION: CT CHEST WITHOUT CONTRAST CLINICAL INFORMATION: Pulmonary nodule. COMPARISON: Previous chest x-ray September 2021 and chest CTA September 2018. TECHNIQUE: Multidetector volumetric CT imaging of the chest was done. Axial MIP volume rendering provided. Sagittal and coronal reformatted images were obtained. This CT examination was performed using dose optimization techniques as appropriate, variously including the following: *Automated exposure control *Adjustment of mA and/or kV according to patient size (this includes techniques or standardized protocols for targeted exams where dose is matched to indication/reason for exam; i.e. extremities or head) *Use of iterative reconstruction technique DLP: 311 mGy-cm. FINDINGS: LUNGS: The lungs are clear. The previously identified nodular opacities September 2018 have resolved. MEDIASTINUM: The mediastinum is normal. PLEURA: There is no pleural effusion. No pleural mass or thickening. AXILLA: No lymphadenopathy. UPPER ABDOMEN: Diverticulosis of the colon. OSSEOUS STRUCTURES: Severe thoracolumbar scoliosis and rods in the spine. CT/CT chest wo con IMPRESSION: No pulmonary nodule seen. Fleischner guidelines were followed.
== END 2021-10-04 09:10 | disposition home or self-care (01) ==
LOC: HO.CT 09:09
PROVIDERS: PCP Family Medicine; Visit Provider Family Medicine
DX: R91.1 Solitary pulmonary nodule (principal)
CPT/HCPCS: 71250

== ENCOUNTER → 2021-10-18 09:19 | Outpatient (REF) | payer MEDICAID, SELFPAY ==
--- NOTE | 2021-10-18 09:23 | CA_ITS ---
Transthoracic Echocardiogram Patient (Last, First, Middle): Brandon Lang Y Gender: Female Date of : 1975 Age: 46 Procedure Date: 10/18/2021 Procedure Type: Transthoracic Echocardiogram Location: OP Height: 160.02 cm Weight: 112.49 kg BSA: 2.12 m2 Heart Rate: 110 bpm BP: 126 / 74 mmHg Fishing Gear Mechanic: MAEGAN Referring MD: Kirill Lebron MD Digital Associate Media Director: Kirill Lebron MD Symptoms: R06.00 - Dyspnea, unspecified Study Quality: Fair/BSA/Contrast ECG Rhythm: Tachycardia Conclusions: - 1. Technically limited study despite use of oral contrast agent 2. Normal LV systolic function with impaired relaxation filling pattern 3. Limited visualization of cardiac valves with normal cardiac valvular Doppler Findings Procedure Information Contrast agent, definity, is being given per protocol without apparent complications. Left Ventricle Normal left ventricular size, thickness, and systolic function. The visually estimated ejection fraction is between 60-65%. Spectral Doppler is indicative of an impaired relaxation filling pattern. E/E prime ratio is between 8 and 15 consistent with indeterminate filling pressures. Right Ventricle The right ventricle was not well visualized. Atria The left atrium was not well visualized. Interatrial shunt cannot be excluded. The right atrium was not well visualized. Aortic Valve The aortic valve was not well visualized. There is no aortic valve stenosis. There is no aortic valve regurgitation. Mitral Valve The mitral valve was not well visualized. There is trace mitral valve regurgitation. There is no mitral valve stenosis. Pulmonic Valve The pulmonic valve was not well visualized. Tricuspid Valve The tricuspid valve was not well visualized. Tricuspid regurgitation envelope is inadequate for calculation of right ventricular systolic pressure. Great Vessels The aorta was not well visualized. The pulmonary artery was not well visualized. Venous The inferior vena cava was not well visualized. Pericardium/Pleural The pericardium was not well visualized. Prior Study Comparison No prior study available for comparison. Measurements 2D Linear Measurements IVSd: 1.08 0.6-0.9/0.6-1.0 cm LVIDd: 4.36 3.9-5.3/4.2-5.9 cm LVIDd Index: 2.06 2.4-3.2/2.2-3.1 cm/m2 LVIDs: 3.17 2.0-3.6 cm LVPWd: 0.91 0.7-1.1 cm LV Mass: 238.94 67-162/88-224 g LV Mass Index: 112.71 43-95/49-115 g/m2 LVOT Diam: 1.90 3.0+(-)1.3 cm 2D Systolic Function EF 4C: 65.00 >55% Mitral Valve MV Pk E: 1.00 MV PK A: 1.00 MV Decel Time: 207.00 E/A: 1.00 E'Lateral: 9.46 E'Medial: 7.18 E/E' Med: 13.90 E/E' Lat: 10.60 PHT: 61.00 MVA PHT: 3.61 Decel Antelope: 4.83 Aortic Valve AoV Pk Kahlil: 1.59 AoV Mn Kahlil: 1.09 AoV VTI: 0.24 AoV Pk Grad: 10.00 Aov Mn Grad: 5.00 HENRI Cont.VTI: 2.57 LVOT LVOT Pk Kahlil: 1.39 LVOT Mn Kahlil: 0.88 LVOT VTI: 0.22 LVOT Pk Grad: 8.00 LVOT Mn Grad: 4.00 LVOT Diam: 1.90 LVOT Area: 2.84 Diastolic Function MV Pk E: 1.00 MV Pk A: 1.00 E/A: 1.00 E'Medial: 7.18 E/E' Med: 13.90 E' Laterial: 9.46 E/E' Lat: 10.60 Right Ventricle TAPSE (mm): 13.70 TVS' Kahlil: 12.80 Tricuspid Valve RA Press: 8.00 Great Vessels Aorta Ao Asc: 3.20 2.1-3.4 cm Pulmonary Valve PV Pk Kahlil: 0.83 Peak PV Grad: 3.00 Updated in Other Vendor System with Status of Final Kirill Lebron MD electronically signed on 10/19/2021 1:28:05 PM with status of Final
== END ==
LOC: HO.CARD 09:19
PROVIDERS: Visit Provider Internal Medicine Cardiovascular Disease
DX: R06.00 Dyspnea, unspecified (principal)
CPT/HCPCS: 93306; Q9957

== ENCOUNTER → 2021-10-25 14:16 | Outpatient (BNVA) | payer MEDICAID, SELFPAY | PROVIDERS: PCP Family Medicine; Visit Provider Internal Medicine Pulmonary Disease | DX: J45.40 Moderate persistent asthma, uncomplicated (principal); R06.00 Dyspnea, unspecified; G47.33 Obstructive sleep apnea (adult) (pediatric); Z99.81 Dependence on supplemental oxygen; Z99.89 Dependence on other enabling machines and devices; Z79.899 Other long term (current) drug therapy | CPT/HCPCS: 99212 ==

== ENCOUNTER 2021-10-27 14:35 | Inpatient (IN) | payer MEDICAID, SELFPAY ==
--- NOTE | ~2021-10-27 | XR_ITS ---
EXAMINATION: XR CHEST CLINICAL INFORMATION: Cough and shortness breath COMPARISON: CT from 09/26/2021 TECHNIQUE: 2 views of the chest were obtained. FINDINGS: Severe dextroscoliosis seen of the thoracic spine with surgical hardware in place. Heart is normal in size. No developing airspace opacities or pleural effusions seen. Perihilar interstitial prominence is seen XR/XR chest 2V IMPRESSION: Mild perihilar interstitial prominence which could represent bronchitis. No focal consolidation
--- NOTE | ~2021-10-27 | CT_ITS ---
EXAMINATION: CT ANGIOGRAM OF THE CHEST WITH AND WITHOUT CONTRAST (CT PULMONARY ANGIOGRAM FOR PE) CLINICAL INFORMATION: Reason for Exam Acute hypoxia, COVID-19 COMPARISON: CT chest 10/04/2021. TECHNIQUE: Prior to contrast administration, noncontrast localization images were obtained. Subsequently, multidetector volumetric imaging was performed from the thoracic inlet to below the diaphragms following the administration of 80 mL Omnipaque 350 intravenous contrast. No contrast reaction reported Sagittal, coronal, and MIP oblique sagittal reformatted images were obtained on the CT workstation, uploaded to PACS, and reviewed. This CT examination was performed using dose optimization techniques as appropriate, variously including the following: *Automated exposure control *Adjustment of mA and/or kV according to patient size (this includes techniques or standardized protocols for targeted exams where dose is matched to indication/reason for exam; i.e. extremities or head) *Use of iterative reconstruction technique Total exam dose-length product 622 mGy-cm FINDINGS: QUALITY OF STUDY/CONTRAST BOLUS: Satisfactory. PULMONARY ARTERIES: No central or segmental pulmonary emboli. THORACIC AORTA: No aneurysm or dissection. LUNG: No focal consolidation, nodules or masses. PLEURA: No pleural effusion or pneumothorax. MEDIASTINUM: Normal heart size. No pericardial effusion. No hilar or mediastinal lymphadenopathy. No evidence of septal bowing or right heart strain. There is a small hiatal hernia. CHEST WALL/AXILLA: No axillary or internal mammary lymphadenopathy. OSSEOUS STRUCTURES: There is rotatory dextroscoliosis of dorsal spine with 2 Agu[place]o rods extending from the upper thoracic inferiorly to upper lumbar spine. UPPER ABDOMEN: There is a 2.5 cm gallstone. Visualized liver, spleen and pancreas unremarkable. No reflux of contrast into the hepatic veins to suggest elevated right heart pressures. CT/CT angio chest PE protocol IMPRESSION: No evidence of PE. No evidence aortic dissection or aneurysm. Lungs are clear. Large gallstone. VTE: negative
--- NOTE | ~2021-10-27 | US_ITS ---
EXAMINATION: US VENOUS ULTRASOUND WITH DOPPLER LOWER EXTREMITY, RIGHT CLINICAL INFORMATION: Asymmetric swelling, rule out DVT COMPARISON: None TECHNIQUE: Ultrasound of the deep veins is performed from the hip to the calf with compression sonography and color and pulse Doppler assessment. Spectral analysis with color-flow imaging is performed. FINDINGS: There is normal venous compression and respiratory variation and augmented flow. The visualized common femoral vein, superficial femoral vein, profunda femoral vein, popliteal vein, and the trifurcation region shows no evidence of deep venous thrombosis. There is no significant popliteal fossa cyst. If the patient's symptoms persist, followup ultrasound in 5 days 7 days might be of value to exclude proximal propagation from a non-visualized calf vein. US/US venous duplex LE RT IMPRESSION: No DVT demonstrated in the right lower extremity.
[2021-10-27 14:45] VITALS: BP 132/78; PULSE 102; O2SAT 92
[2021-10-27 14:55] VITALS: BP 125/79; PULSE 97; RESP 18; TEMP 37.6; O2SAT 85; BMI 44.6
--- NOTE | 2021-10-27 15:18 | ED.SOB ---
HPI - SOB/Dyspnea General Chief Complaint: Dyspnea Stated Complaint: DIFF BREATHING,77% RA, 88% @2LPM,FROM SNF PER EMS Time Seen by Provider: 10/27/21 15:18 Source: patient, family (Mother, Jeimy) and other (Expect note from Dr. Ware [facility]) Mode of arrival: EMS Limitations: language barrier (The patient has intellectual disability and he information comes mainly from the patient's mother. The mother and patient are both Taiwanese speaking only and an oil well services supervisor was used.) History of Present Illness HPI Narrative: 46-year-old female who was sent to the emergency department from the [facility] urgent care clinic for evaluation cough, elevated respiratory rate, shortness of breath and hypoxia. O2 saturation on room air at the urgent care was 70% on 2 L it was 83%. According to the mother, the patient has been sick for approximately 1 month with an asthma exacerbation. The patient has been short of breath and has been short of breath. The mother has been giving the patient an albuterol nebulizer every 3 hours. Today, the patient's program called the mother and states that the patient short of breath and was coughing therefore the mother picked her upper brought her to the urgent care clinic. According to the mother, the patient has a nonproductive sounding cough. Patient has been complaining of shortness of breath and dyspnea on exertion for 1 month she has also been complaining of intermittent chest pain. Approximately 2 months prior, patient's PCP noted that there was swelling of the patient's right lower extremity (patient had a fracture ORIF of this extremity) and the patient was started on furosemide. Mother states that the right lower extremity is still swollen compared to the left. The patient does have known hypoxia and uses 2 L of oxygen mainly at night but sometimes during the day. Patient also has obstructive sleep apnea but does not have a CPAP machine. The patient was seen in the emergency department on 09/27/2021 for an asthma exacerbation which was treated with prednisone and albuterol inhaler. Related Data Previous Rx's Medication Instructions Recorded omeprazole magnesium 20 mg 20 mg PO BID #30 tabs 06/14/20 tablet,delayed release (Prilosec OTC) arformoterol 15 mcg/2 mL solution 2 ml inhalation BID 30 days #120 mL 05/04/21 for nebulization (Brovana) ipratropium 0.5 mg-albuterol 3 mg 3 ml inhalation TID #270 mL 05/04/21 (2.5 mg base)/3 mL nebulization soln albuterol sulfate 90 mcg/actuation 2 puff inhalation Q4-6H PRN 09/27/21 aerosol inhaler (Ventolin HFA) shortness of breath or wheezing #8.5 grams prednisone 50 mg tablet 50 mg PO DAILY 4 days #4 tabs 09/27/21 furosemide 20 mg tablet 40 mg PO QAM 30 days #60 tabs 10/25/21 Allergies Allergy/AdvReac Type Severity Reaction Status Date / Time No Known Allergies Allergy Unknown Verified 10/27/21 14:54 [No Known Allergies*] Review of Systems Review of Systems: Yes all other systems are reviewed and are negative [facility] Past Medical History [facility] Narrative: Social history: The patient does not drink alcohol, smoke cigarettes or use drugs. Medical History Asthma Intellectual disability Oxygen desaturation during sleep Sleep apnea Surgical History History of esophagogastroduodenoscopy (EGD) History of open reduction and internal fixation (ORIF) procedure Status post spinal surgery Social History Social History Patient Tobacco Use Status: Never used Tobacco Use of substances other than those prescribed or required for medical reasons: No Patient : No Physical Exam Vital Signs: Vital Signs: Last Vital Signs Temp 99.6 F 10/27/21 14:55 Pulse 92 10/27/21 15:48 Resp 18 10/27/21 15:48 BP 125/79 10/27/21 14:55 Pulse Ox 95 10/27/21 15:48 O2 Del Method 10/27/21 15:48 O2 Flow Rate 2 10/27/21 15:48 BMI result Body Mass Index 44.6 Const: Other: Awake, alert, female patient, she is nonverbal but does respond appropriately to her mother and was able to follow examination commands given is Taiwanese, she does not appear to be in distress, she does have an elevated BMI of 44.6. HEENT: Head: Yes normal to inspection, Yes normocephalic and Yes atraumatic Ears: external ears normal General nose exam: Normal external nose present Face and sinus: Yes normal facial exam Mouth: Normal oral and palatal mucosa present Throat: Yes posterior oropharynx normal Eyes: General: appearance normal, both eyes and all related structures Pupils: Equal, round and reactive pupils present Neck: Neck: Yes normal visual inspection, Yes no lymphadenopathy, Yes trachea midline and Yes supple Chest: Chest palpation & inspection: normal inspection of the chest and normal palpation of entire chest wall Resp: Auscultation: wheezes (Diffuse) Cardio: Rate: regular rate Rhythm: regular rhythm Heart sounds: S1 normal heart sound present, S2 normal heart sound present and no murmurs GI: Inspection: Yes normal to inspection Palpation (GI): Soft to palpation, nontender and no guarding Auscultation: normal bowel sounds : General: Yes no CVA tenderness Back/Spine/Pelvis: Back: no CVA tenderness Skin: General skin exam: no rashes or lesions noted Neuro: Cranial nerves: Yes CN's II-XII intact bilaterally and Yes Equal, round and reactive pupils present Cognition (Neuro): normal cognition Motor exam (neuro): 5/5 motor strength present throughout Extrem: Other: Right lower extremity is larger than left, she has trace pitting edema bilaterally Psych: Affect: normal affect Attitude: cooperative Course Course Course Narrative: 46-year-old female who presents with shortness of breath/asthma exacerbation for 1 month, cough x1 day. Patient does wear oxygen 2 L via nasal cannula mainly at night but sometimes more frequently according to the mother. Patient was sent in from the urgent care clinic secondary to hypoxia. The patient has sleep apnea but does not use a CPAP machine. In the emergency department her O2 saturation on room air was 85% and on 2 L via nasal cannula was 95%. She does have wheezing on her lung exam. She also has asymmetric swelling over lower extremities which the mother states has been present for several months and she is on furosemide with minimal improvement. I did order a laboratory evaluation to include CBC, CMP, D-dimer, PT/INR, PTT, D-dimer, lactate, lipase, blood culture x2, urinalysis COVID-19. Chest x-ray will also be obtained. Patient was ordered to get albuterol 5 mg nebulizer and Solu-Medrol 125 mg IV. 1610: Patient's D-dimer was normal which is reassuring making pulmonary embolism less likely. At the end of my shift, the patient's laboratory evaluation and chest x-ray are pending. Patient's care was turned over my colleague, Dr. Fritz. MDM - SOB/Dyspnea Lab Data Result diagrams: 10/27/21 15:43 Discharge Plan Discharge Clinical Impression: Asthma, Chest pain, Localized swelling of right lower extremity, Cough Patient Disposition: Still a Patient Prescriptions: No Action omeprazole magnesium [Prilosec OTC] 20 mg tablet,delayed release (DR/EC) 20 mg PO BID Qty: 30 0RF prednisone 50 mg tablet 50 mg PO DAILY 4 Days Qty: 4 0RF albuterol sulfate [Ventolin HFA] 90 mcg/actuation HFA aerosol inhaler 2 puff inhalation Q4-6H PRN (Reason: shortness of breath or wheezing) Qty: 8.5 0RF ipratropium-albuterol 0.5 mg-3 mg(2.5 mg base)/3 mL solution for nebulization 3 ml inhalation TID Qty: 270 6RF arformoterol [Brovana] 15 mcg/2 mL solution for nebulization 2 ml inhalation BID 30 Days Qty: 120 6RF furosemide 20 mg tablet 40 mg PO QAM 30 Days Qty: 60 3RF
--- NOTE | 2021-10-27 15:22 | ECG_ITS ---
Test Reason : DYSPNEA Blood Pressure : / mmHG Vent. Rate : 000 BPM Atrial Rate : 000 BPM P-R Int : 000 ms QRS Dur : 000 ms QT Int : 000 ms P-R-T Axes : 000 000 000 degrees QTc Int : 000 ms No QRS complexes found, no ECG analysis possible When compared with ECG of 27-SEP-2021 19:22, Current undetermined rhythm precludes rhythm comparison, needs review Referred By: Guy Seo Electronically Signed By:Parviz Gates
[2021-10-27] MEDS: methylPREDNISolone Sod Succ 125 MG/2 ML VIAL IVPUSH (15:46)
[2021-10-27 15:48] VITALS: PULSE 92; RESP 18; O2SAT 95
[2021-10-27 15:55] LABS: Appearance Urine CLEAR; Color Urine STRAW; Glucose Urine UA NEG (NEG); Leukocyte Esterase Urine NEG (NEG); Nitrite Urine NEG (NEG); PH 5.5 (5.0-8.0); Specific Gravity - Urine <= 1.005 (1.005-1.025); Urine Blood NEG (NEG); Urine Ketones NEG (NEG); Urine Protein NEG (NEG-TRACE)
[2021-10-27 15:58] LABS: INTERNATIONAL NORM RATIO 1.2 (0.9-1.1); Prothrombin Time 13.8 SEC (10.0-13.1)
[2021-10-27 16:01] LABS: D Dimer High Sensitivity 185 NG/ML; Partial Thromboplastin Time 38.2 SEC (24.1-38.0)
[2021-10-27] MEDS: Albuterol Sulfate (0.083%) 2.5 MG/3 ML VIAL.NEB 5 MG INHALE (16:02)
[2021-10-27 16:03] LABS: COVID-19 Test Positive (Negative)
[2021-10-27 16:04] LABS: Lactic Acid 1.2 mmol/L (0.5-2.0)
[2021-10-27 16:13] VITALS: PULSE 84; RESP 16; O2SAT 94
[2021-10-27 16:14] LABS: B Type Natriuretic Peptide 270 pg/mL (<100)
[2021-10-27 16:20] LABS: Alanine Aminotransferase 17 U/L (0-31); Albumin Level 3.7 g/dL (3.5-5.0); Alkaline Phosphatase 74 U/L (39-117); Anion Gap 9 (12-20); Aspartate Amino Transferase 18 U/L (5-31); Bilirubin Total 0.6 mg/dL (0.0-1.0); Blood Urea Nitrogen 15 mg/dL (9-16); Calcium 8.7 mg/dL (8.4-10.2); Carbon Dioxide 40 mmol/L (22-29); Chloride 94 mmol/L (96-108); Creatinine Clr Calc Pharmacy 114.2; Estimated Glomerular Filt Rate > 60; Glucose Random 111 mg/dL (60-115); Lipase 33 U/L (8-78); Potassium 4.3 mmol/L (3.3-5.1); Sodium 139 mmol/L (135-145)
[2021-10-27 19:12] VITALS: BP 116/87; PULSE 89; RESP 20; TEMP 37; O2SAT 93
[2021-10-27] MEDS: dexAMETHasone sod phosphate 4 MG/ML VIAL 6 MG IVPUSH (19:21)
--- NOTE | 2021-10-27 19:22 | PHA.MEDREC ---
Pharmacy Consult ? Medication Reconciliation Pharmacy has completed the medication reconciliation. Went to patient's room. Mother told me they pick everything up from [facility]. Used past claim history to complete medication reconciliation.
[2021-10-27 19:33] LABS: Basophils Percent Auto 0.3 % (0-2); Eosinophils Percent Auto 0.3 % (0-4); Hematocrit 42.4 % (37.0-47.0); Hemoglobin 11.9 g/dl (12.0-16.0); Imm Gran Abs Auto 0.15 X10*3/uL (0.00-0.03); Imm Gran Pct Auto 1.4 % (0.0-0.4); Lymphocytes Absolute Auto 0.5 X10*3/uL (1.2-4.9); Lymphocytes Percent Auto 5.1 % (20-40); MANUAL DIFF FLAG SCAN; Mean Corpuscular HGB Conc 28.1 g/dl (31.0-35.0); Mean Corpuscular Hemoglobin 21.7 pg (27.0-33.0); Mean Corpuscular Volume 77.4 fL (80.0-98.0); Mean Platelet Volume 10.7 fL (9.4-12.3); Monocytes Absolute Auto 0.1 X10*3/uL (0.1-1.2); Monocytes Percent Auto 1.2 % (2-11); Neutrophils Absolute Auto 9.5 x10*3/uL (2.0-8.3); Neutrophils Percent Auto 91.7 % (45-73); Platelet Count 274 X10*3/uL (160-400); Red Blood Count 5.48 X10*6/uL (4.20-5.50); Red Cell Distribution Width 18.6 % (11.0-16.0); SCAN SMEAR FLAG 1; White Blood Count 10.4 X10*3/uL (4.8-10.8)
[2021-10-27 19:54] LABS: SLIDE REVIEW VERIFIED
[2021-10-27] MEDS: iohexoL 350 MG/ML 100 ML INFUS..BTL IV (21:44)
--- NOTE | 2021-10-27 23:30 | PM.IMHP ---
History of Present Illness Date of Service: 10/27/21 Chief Complaint: hypoxia 46-year-old female with a past medical history of asthma, intellectual disability, GEORGE on oxygen at nighttime; presented to the hospital today with a chief complaint of hypoxia. Patient history obtained from the patient and patient's mother at bedside. Reportedly patient was been having shortness of breath and cough for the past 1 day. Today she had a lot of coughing with the posttussive chest discomfort. Went to the urgent care for evaluation noted to have hypoxia in 70s on room air; placed on supplemental oxygen subsequently sent to the ER for further evaluation. Patient mentioned that her breathing is better currently. On supplemental oxygen. Reports her chest pain is posttussive. Mentions that she has been having cough with whitish sputum production. Denies any fevers. Denies any recent travel or sick contacts. ER course: Per ER team patient on presentation noted to be on supplemental oxygen; not in respiratory distress; COVID-19 positive; chest x-ray showed possible infiltrate; CT chest showed no evidence of pulmonary embolism. Noted lung scar. Admitted to the hospital for further management. [facility] Medical History Asthma Intellectual disability Oxygen desaturation during sleep Sleep apnea Surgical History History of esophagogastroduodenoscopy (EGD) History of open reduction and internal fixation (ORIF) procedure Status post spinal surgery Social History Patient Tobacco Use Status: Never used Tobacco Use of substances other than those prescribed or required for medical reasons: No Advance Directives: No Advance Directives Information Provided: No Patient : No Meds Allergies Allergy/AdvReac Type Severity Reaction Status Date / Time No Known Allergies Allergy Unknown Verified 10/27/21 14:54 [No Known Allergies*] Active Medications: Current Medications Acetaminophen (Acetaminophen 325 Mg Tablet) 650 mg PO Q6H PRN PRN Reason: Pain, Mild (Pain Scale 1-3) Azithromycin (Azithromycin 500 Mg Tablet) 500 mg PO Q24H [facility] Dexamethasone Sodium Phosphate (Dexamethasone Sod Phosphate 4 Mg/Ml Vial) 6 mg IVPUSH DAILY [facility] Enoxaparin Sodium (Enoxaparin Sodium 40 Mg/0.4 Ml Syringe) 40 mg SUBCUT Q24H [facility] Ceftriaxone Sodium 1 gm/ (Sodium Chloride) 50 mls @ 100 mls/hr IV Q24H [facility] Melatonin (Melatonin 3 Mg Tablet) 6 mg PO BEDTIME PRN PRN Reason: Insomnia Senna (Sennosides 8.6 Mg Tablet) 17.2 mg PO BEDTIME PRN PRN Reason: Constipation Sodium Chloride (0.9 % Sodium Chloride Flush 3 Ml Syringe) 3 ml IVFLUSH QSHIFT [facility] Home Medications Medication Instructions Recorded Confirmed Last Taken Type baclofen 10 mg tablet 0.5 - 1 tab PO BEDTIME PRN muscle 10/27/21 10/27/21 Unknown History spasm budesonide 0.5 mg/2 mL suspension 1 amp inhalation BID 10/27/21 10/27/21 Unknown History for nebulization cetirizine 10 mg tablet 1 tab PO DAILY 10/27/21 10/27/21 Unknown History econazole 1 % topical cream 1 appl topical DAILY 10/27/21 10/27/21 Unknown History fluoxetine 20 mg capsule 1 cap PO QAM 10/27/21 10/27/21 Unknown History naproxen 500 mg tablet 1 tab PO BID PRN pain 10/27/21 10/27/21 Unknown History trazodone 50 mg tablet 2 tab PO BEDTIME 10/27/21 10/27/21 Unknown History white petrolatum 42 % topical 1 ea topical DAILY 10/27/21 10/27/21 Unknown History ointment Physical Exam Vital Signs and Narrative: Vital Signs: Last Vital Signs Temp 98.6 F 10/27/21 19:12 Pulse 89 10/27/21 19:12 Resp 20 10/27/21 19:12 BP 116/87 10/27/21 19:12 Pulse Ox 93 10/27/21 19:12 O2 Del Method Blow By 10/27/21 19:12 O2 Flow Rate 2.5 10/27/21 19:12 BMI result Body Mass Index 44.6 Results Labs CBC and Chem 7: 10/27/21 19:19 10/27/21 15:43 Labs: Laboratory Results - last 24 hr 10/27/21 10/27/21 10/27/21 15:43 15:43 15:43 MCV MCH MCHC RDW Plt Count MPV Immature Gran % (Auto) Neut % (Auto) Lymph % (Auto) [place] % (Auto) Eos % (Auto) Baso % (Auto) Lymph # (Auto) [place] # (Auto) Eos # (Auto) Baso # (Auto) Abs Immat Gran (auto) Absolute Neuts (auto) Absolute Nucleated RBC Nucleated RBC % (auto) Smear Tech's Comments PT INR APTT D-Dimer High Sensitivty Anion Gap 9 L Estim Creat Clear Calc 114.2 Estimated GFR > 60 Random Glucose 111 Lactic Acid Calcium 8.7 Total Bilirubin 0.6 AST 18 ALT 17 Alkaline Phosphatase 74 Troponin I High Sens B-Natriuretic Peptide 270 H Total Protein 7.0 Albumin 3.7 Lipase 33 Urine Color Urine Appearance Urine pH Ur Specific [place] Urine Protein Urine Glucose (UA) Urine Ketones Urine Blood Urine Nitrite Ur Leukocyte Esterase COVID-19 (TANIYA) Positive A COVID-19 [email or web address] Com See Note 10/27/21 10/27/21 10/27/21 15:43 15:43 15:43 MCV MCH MCHC RDW Plt Count MPV Immature Gran % (Auto) Neut % (Auto) Lymph % (Auto) [place] % (Auto) Eos % (Auto) Baso % (Auto) Lymph # (Auto) [place] # (Auto) Eos # (Auto) Baso # (Auto) Abs Immat Gran (auto) Absolute Neuts (auto) Absolute Nucleated RBC Nucleated RBC % (auto) Smear Tech's Comments PT 13.8 H INR 1.2 H APTT 38.2 H D-Dimer High Sensitivty 185 Anion Gap Estim Creat Clear Calc Estimated GFR Random Glucose Lactic Acid 1.2 Calcium Total Bilirubin AST ALT Alkaline Phosphatase Troponin I High Sens 10.0 D B-Natriuretic Peptide Total Protein Albumin Lipase Urine Color Urine Appearance Urine pH Ur Specific [place] Urine Protein Urine Glucose (UA) Urine Ketones Urine Blood Urine Nitrite Ur Leukocyte Esterase COVID-19 (TANIYA) COVID-[employer] 10/27/21 10/27/21 15:48 19:19 MCV 77.4 L MCH 21.7 L MCHC 28.1 L RDW 18.6 H Plt Count 274 MPV 10.7 Immature Gran % (Auto) 1.4 H Neut % (Auto) 91.7 H Lymph % (Auto) 5.1 L [place] % (Auto) 1.2 L Eos % (Auto) 0.3 Baso % (Auto) 0.3 Lymph # (Auto) 0.5 L [place] # (Auto) 0.1 Eos # (Auto) 0.0 Baso # (Auto) 0.0 Abs Immat Gran (auto) 0.15 H Absolute Neuts (auto) 9.5 H Absolute Nucleated RBC 0.000 Nucleated RBC % (auto) 0.0 Smear Tech's Comments VERIFIED PT INR APTT D-Dimer High Sensitivty Anion Gap Estim Creat Clear Calc Estimated GFR Random Glucose Lactic Acid Calcium Total Bilirubin AST ALT Alkaline Phosphatase Troponin I High Sens B-Natriuretic Peptide Total Protein Albumin Lipase Urine Color STRAW Urine Appearance CLEAR Urine pH 5.5 Ur Specific [place] <= 1.005 Urine Protein NEG Urine Glucose (UA) NEG Urine Ketones NEG Urine Blood NEG Urine Nitrite NEG Ur Leukocyte Esterase NEG COVID-19 (TANIYA) COVID-19 Clin Com Imaging Radiologist's Impressions: Impressions Chest X-Ray 10/27/21 16:13 IMPRESSION: Mild perihilar interstitial prominence which could represent bronchitis. No focal consolidation Venous Duplex 10/27/21 18:08 IMPRESSION: No DVT demonstrated in the right lower extremity. Chest CTA 10/27/21 21:53 IMPRESSION: No evidence of PE. No evidence aortic dissection or aneurysm. Lungs are clear. Large gallstone. VTE: negative Assessment and Plan (1) COVID: Status: Acute Plan 46-year-old female with a past medical history of asthma, intellectual disability, GEORGE on oxygen at nighttime, fatty liver, scoliosis, allergic rhinitis presented to the hospital today with a chief complaint of hypoxia. Hypoxia/COVID-19 infection: Decadron 6 mg IV Id consult Empirically covered with ceftriaxone and azithromycin for now CT chest showed no evidence of pulmonary embolism. Chest pain: Atypical in nature. Posttussive. Pain control. History of GEORGE: Patient on supplemental oxygen at nighttime at baseline. For all other chronic conditions, home medications continued including baclofen, fluoxetine, furosemide, trazodone DVT prophylaxis: Lovenox Code status: Full code Quality Stroke Does the patient have a stroke diagnosis?: No VTE Prior VTE?: No VTE Risk Level:: Medical - moderate - high VTE Device Contraindication: Treatment Not Indicated VTE Drug Contraindication: N/A - Med Ordered
[2021-10-28] VITALS (11 sets, daily range): BP systolic 103–158; BP diastolic 61–91; PULSE 72–93; RESP 13–20; TEMP 36.4–37; O2SAT 55–98
[2021-10-28] MEDS: cefTRIAXone sodium 1 GM in 0.9 % Sodium Chloride 50 ML IV (01:36)
[2021-10-28] MEDS: Azithromycin 500 MG TABLET PO (01:37)
[2021-10-28] MEDS: Enoxaparin Sodium 40 MG/0.4 ML SYRINGE SUBCUT ×2 (01:37→21:19)
[2021-10-28] MEDS: 0.9 % Sodium Chloride Flush 3 ML SYRINGE IVFLUSH ×2 (01:38→18:39)
--- NOTE | 2021-10-28 05:15 | PC.NURSE ---
pt desaturated to 55% on 2lpm. This noticed 74% on monitor went to check on pt, by the time this RN got to room SPO2 was 55% with good pleth. pt was given a sternal rub and encouraged to inhale through nose and out mouth, O2 increased to 6lpm for less than 1 minute, pt SP02 improved, back on 2lpm 96%
[2021-10-28 06:49] LABS: Hematocrit 43.5 % (37.0-47.0); Imm Gran Abs Auto 0.09 X10*3/uL (0.00-0.03); Imm Gran Pct Auto 0.9 % (0.0-0.4); Lymphocytes Absolute Auto 0.5 X10*3/uL (1.2-4.9); Lymphocytes Percent Auto 4.9 % (20-40); MANUAL DIFF FLAG SCAN; Mean Corpuscular HGB Conc 27.6 g/dl (31.0-35.0); Mean Platelet Volume 11.3 fL (9.4-12.3); Monocytes Absolute Auto 0.1 X10*3/uL (0.1-1.2); Monocytes Percent Auto 1.1 % (2-11); Neutrophils Absolute Auto 9.6 x10*3/uL (2.0-8.3); Neutrophils Percent Auto 93.1 % (45-73); Platelet Count 337 X10*3/uL (160-400); Red Blood Count 5.72 X10*6/uL (4.20-5.50); Red Cell Distribution Width 18.4 % (11.0-16.0); SCAN SMEAR FLAG 1; White Blood Count 10.3 X10*3/uL (4.8-10.8)
[2021-10-28 07:10] LABS: Anion Gap 12 (12-20); Blood Urea Nitrogen 12 mg/dL (9-16); Calcium 8.7 mg/dL (8.4-10.2); Carbon Dioxide 35 mmol/L (22-29); Chloride 96 mmol/L (96-108); Creatinine Clr Calc Pharmacy 135.9; Estimated Glomerular Filt Rate > 60; Glucose Random 125 mg/dL (60-115); Potassium 4.4 mmol/L (3.3-5.1); Sodium 139 mmol/L (135-145)
[2021-10-28 07:22] LABS: SLIDE REVIEW VERIFIED
--- NOTE | 2021-10-28 10:31 | P.PNIM_ITS ---
Subjective Subjective Date of Service: 10/28/21 Interval History: cc: sob interval history:much improved Cardiovascular Cardiovascular: Reports no additional cardiovascular complaints Respiratory Respiratory: Reports no additional respiratory complaints Physical Exam Vital Signs: Vital Signs: Last Vital Signs Temp 97.8 F 10/28/21 07:56 Pulse 86 10/28/21 07:56 Resp 18 10/28/21 07:56 BP 116/61 10/28/21 07:56 Pulse Ox 94 10/28/21 07:56 O2 Del Method 10/28/21 07:56 O2 Flow Rate 2 10/28/21 05:10 BMI result Body Mass Index 44.6 General: AO X 3, no acute distress Resp: diminished bilateral, no accessory muscles used CVS: S1,S2,RRR GI: soft, non tender, non distended Neuro: motor grossly intact, alert Psych: appropriate affect, ipaired insight Objective Data Active Medications Acetaminophen (Acetaminophen 325 Mg Tablet) 650 mg PO Q6H PRN PRN Reason: Pain, Mild (Pain Scale 1-3) Albuterol Sulfate (Albuterol Sulfate 90 Mcg 8 Gm Inhaler) 2 puff INHALE Q4H PRN PRN Reason: shortness of breath or wheezing Albuterol/Ipratropium (Albuterol/Iprat 2.5/0.5mg 3 Ml Ampul.Neb) 3 ml INHALE TID [facility] Last Admin: 10/28/21 07:48 Dose: Not Given Documented By: MARTHA Non-Admin Reason: Patient Refused Baclofen (Baclofen 10 Mg Tablet) 5 mg PO BEDTIME PRN PRN Reason: muscle spasm Dexamethasone Sodium Phosphate (Dexamethasone Sod Phosphate 4 Mg/Ml Vial) 6 mg IVPUSH DAILY [facility] Enoxaparin Sodium (Enoxaparin Sodium 40 Mg/0.4 Ml Syringe) 40 mg SUBCUT BEDTIME [facility] Last Admin: 10/28/21 01:37 Dose: 40 mg Documented By: OSVALDO Fluoxetine HCl (Fluoxetine Hcl 20 Mg Capsule) 20 mg PO DAILY [facility] Furosemide (Furosemide 40 Mg/4 Ml Vial) 40 mg IVPUSH BID@0900,1800 [facility]; Protocol Loratadine (Loratadine 10 Mg Tablet) 10 mg PO DAILY [facility] Non-Formulary Medication (Arformoterol [Brovana]) 2 ml INHALE BID [facility] Non-Formulary Medication (Budesonide) 1 ampul INHALE BID [facility] Non-Formulary Medication (Econazole) 1 appl TOPICAL DAILY [facility] Omeprazole (Omeprazole 20 Mg Capsule.Dr) 20 mg PO BID [facility] Senna (Sennosides 8.6 Mg Tablet) 17.2 mg PO BEDTIME PRN PRN Reason: Constipation Sodium Chloride (0.9 % Sodium Chloride Flush 3 Ml Syringe) 3 ml IVFLUSH QSHIFT [facility] Last Admin: 10/28/21 01:38 Dose: 3 ml Documented By: OSVALDO Trazodone HCl (Trazodone Hcl 100 Mg Tablet) 100 mg PO BEDTIME [facility] Labs CBC & Chem 7: 10/28/21 06:05 10/28/21 06:05 Labs: Laboratory Results - last 24 hr 10/27/21 10/27/21 10/27/21 15:43 15:43 15:43 MCV MCH MCHC RDW Plt Count MPV Immature Gran % (Auto) Neut % (Auto) Lymph % (Auto) [place] % (Auto) Eos % (Auto) Baso % (Auto) Lymph # (Auto) [place] # (Auto) Eos # (Auto) Baso # (Auto) Abs Immat Gran (auto) Absolute Neuts (auto) Absolute Nucleated RBC Nucleated RBC % (auto) Smear Tech's Comments PT INR APTT D-Dimer High Sensitivty Anion Gap 9 L Estim Creat Clear Calc 114.2 Estimated GFR > 60 Random Glucose 111 Lactic Acid Calcium 8.7 Total Bilirubin 0.6 AST 18 ALT 17 Alkaline Phosphatase 74 Troponin I High Sens B-Natriuretic Peptide 270 H Total Protein 7.0 Albumin 3.7 Lipase 33 Urine Color Urine Appearance Urine pH Ur Specific [place] Urine Protein Urine Glucose (UA) Urine Ketones Urine Blood Urine Nitrite Ur Leukocyte Esterase COVID-19 (TANIYA) Positive A COVID-19 Clin Com See Note 10/27/21 10/27/21 10/27/21 15:43 15:43 15:43 MCV MCH MCHC RDW Plt Count MPV Immature Gran % (Auto) Neut % (Auto) Lymph % (Auto) [place] % (Auto) Eos % (Auto) Baso % (Auto) Lymph # (Auto) [place] # (Auto) Eos # (Auto) Baso # (Auto) Abs Immat Gran (auto) Absolute Neuts (auto) Absolute Nucleated RBC Nucleated RBC % (auto) Smear Tech's Comments PT 13.8 H INR 1.2 H APTT 38.2 H D-Dimer High Sensitivty 185 Anion Gap Estim Creat Clear Calc Estimated GFR Random Glucose Lactic Acid 1.2 Calcium Total Bilirubin AST ALT Alkaline Phosphatase Troponin I High Sens 10.0 D B-Natriuretic Peptide Total Protein Albumin Lipase Urine Color Urine Appearance Urine pH Ur Specific [place] Urine Protein Urine Glucose (UA) Urine Ketones Urine Blood Urine Nitrite Ur Leukocyte Esterase COVID-19 (TANIYA) COVID-19 Clin Com 10/27/21 10/27/21 10/28/21 15:48 19:19 06:05 MCV 77.4 L 76.0 L MCH 21.7 L 21.0 L MCHC 28.1 L 27.6 L RDW 18.6 H 18.4 H Plt Count 274 337 MPV 10.7 11.3 Immature Gran % (Auto) 1.4 H 0.9 H Neut % (Auto) 91.7 H 93.1 H Lymph % (Auto) 5.1 L 4.9 L [place] % (Auto) 1.2 L 1.1 L Eos % (Auto) 0.3 0.0 Baso % (Auto) 0.3 0.0 Lymph # (Auto) 0.5 L 0.5 L [place] # (Auto) 0.1 0.1 Eos # (Auto) 0.0 0.0 Baso # (Auto) 0.0 0.0 Abs Immat Gran (auto) 0.15 H 0.09 H Absolute Neuts (auto) 9.5 H 9.6 H Absolute Nucleated RBC 0.000 0.000 Nucleated RBC % (auto) 0.0 0.0 Smear Tech's Comments VERIFIED VERIFIED PT INR APTT D-Dimer High Sensitivty Anion Gap Estim Creat Clear Calc Estimated GFR Random Glucose Lactic Acid Calcium Total Bilirubin AST ALT Alkaline Phosphatase Troponin I High Sens B-Natriuretic Peptide Total Protein Albumin Lipase Urine Color STRAW Urine Appearance CLEAR Urine pH 5.5 Ur Specific [place] <= 1.005 Urine Protein NEG Urine Glucose (UA) NEG Urine Ketones NEG Urine Blood NEG Urine Nitrite NEG Ur Leukocyte Esterase NEG COVID-19 (TANIYA) COVID-19 Clin Com 10/28/21 06:05 MCV MCH MCHC RDW Plt Count MPV Immature Gran % (Auto) Neut % (Auto) Lymph % (Auto) [place] % (Auto) Eos % (Auto) Baso % (Auto) Lymph # (Auto) [place] # (Auto) Eos # (Auto) Baso # (Auto) Abs Immat Gran (auto) Absolute Neuts (auto) Absolute Nucleated RBC Nucleated RBC % (auto) Smear Tech's Comments PT INR APTT D-Dimer High Sensitivty Anion Gap 12 Estim Creat Clear Calc 135.9 Estimated GFR > 60 Random Glucose 125 H Lactic Acid Calcium 8.7 Total Bilirubin AST ALT Alkaline Phosphatase Troponin I High Sens B-Natriuretic Peptide Total Protein Albumin Lipase Urine Color Urine Appearance Urine pH Ur Specific [place] Urine Protein Urine Glucose (UA) Urine Ketones Urine Blood Urine Nitrite Ur Leukocyte Esterase COVID-19 (TANIYA) COVID-19 Clin Com Assessment and Plan (1) COVID: Status: Acute Plan 46F presented with sob acute on chronic hypoxic respiratory failure multifactorial at rest at baseline 2L, desturates on minimal exertion acute on chronic diastolic chf IV lasix, monitor bmp covid 19 decadron day 2 OHS/GEORGE, morbid obesity NIV at night weight loss moderate persistent asthma continue inhalers intellectual delay dvt prophylaxis - lovenox full code reason for continued hospitalization:iv diuresis Quality Stroke Does the patient have a stroke diagnosis?: No VTE Prior VTE?: No VTE Risk Level:: Medical - moderate - high VTE Device Contraindication: Treatment Not Indicated VTE Drug Contraindication: N/A - Med Ordered
[2021-10-28] MEDS: FLUoxetine HCl 20 MG CAPSULE PO (11:18)
[2021-10-28] MEDS: dexAMETHasone sod phosphate 4 MG/ML VIAL 6 MG IVPUSH (11:18)
[2021-10-28] MEDS: Furosemide 40 MG/4 ML VIAL IVPUSH ×2 (11:19→18:39)
[2021-10-28] MEDS: Loratadine 10 MG TABLET PO (11:19)
[2021-10-28] MEDS: Omeprazole 20 MG CAPSULE.DR PO ×2 (11:19→21:18)
--- NOTE | 2021-10-28 11:51 | PC.NURSE ---
1120-pt assessed. pt sleeping and woke to assess. mother at bedside. Anodizing Line Operator at bedside as well. pt complaines of some epigastric abdominal pain and tenderness upon palpation, rating 7/10, pt stating, she has had pain for several days now and has kidney stones. No back pain noted. Pt had BM 10/27/21. abdomen obese and round, bowel sounds present. pt sleeping between questions, showing no physical signs of pain. Pt denies nausea. Pedal pulses +1, radial +2. lung sounds clear bilaterally A&P throughout. patient can answer basic questions in [place]. pt follows commands, IV flushed without issues. pt able to drink water well.
--- NOTE | 2021-10-28 14:34 | P.CNID_ITS ---
History of Present Illness Data of Consult Service Date: 10/28/21 Requesting physician: John Morocho Primary Care Provider: DO MARGOT Riggins Reason for consult: hypoxia,positive COVID She presents with shortness of breath day of admission and had hypoxia transiently to 70s. She has hypoventilation and obesity. She has positive COVID test. Review of Systems Review of Systems: Yes Unobtainable due to mental status PMFSH Past Medical History Medical History Asthma Intellectual disability Oxygen desaturation during sleep Sleep apnea Family History Family history: reviewed and not pertinent Surgical History Surgical History History of esophagogastroduodenoscopy (EGD) History of open reduction and internal fixation (ORIF) procedure Status post spinal surgery Social History Social History Patient Tobacco Use Status: Never used Tobacco Use of substances other than those prescribed or required for medical reasons: No Advance Directives: No Advance Directives Information Provided: No Patient : No Meds Allergies Allergy/AdvReac Type Severity Reaction Status Date / Time No Known Allergies Allergy Unknown Verified 10/27/21 14:54 [No Known Allergies*] Active Medications: Current Medications Acetaminophen (Acetaminophen 325 Mg Tablet) 650 mg PO Q6H PRN PRN Reason: Pain, Mild (Pain Scale 1-3) Albuterol Sulfate (Albuterol Sulfate 90 Mcg 8 Gm Inhaler) 2 puff INHALE Q4H PRN PRN Reason: shortness of breath or wheezing Albuterol/Ipratropium (Albuterol/Iprat 2.5/0.5mg 3 Ml Ampul.Neb) 3 ml INHALE TID [facility] Last Admin: 10/28/21 07:48 Dose: Not Given Baclofen (Baclofen 10 Mg Tablet) 5 mg PO BEDTIME PRN PRN Reason: muscle spasm Dexamethasone Sodium Phosphate (Dexamethasone Sod Phosphate 4 Mg/Ml Vial) 6 mg IVPUSH DAILY [facility] Last Admin: 10/28/21 11:18 Dose: 6 mg Enoxaparin Sodium (Enoxaparin Sodium 40 Mg/0.4 Ml Syringe) 40 mg SUBCUT BEDTIME [facility] Last Admin: 10/28/21 01:37 Dose: 40 mg Fluoxetine HCl (Fluoxetine Hcl 20 Mg Capsule) 20 mg PO DAILY [facility] Last Admin: 10/28/21 11:18 Dose: 20 mg Furosemide (Furosemide 40 Mg/4 Ml Vial) 40 mg IVPUSH BID@0900,1800 [facility]; Protocol Last Admin: 10/28/21 11:19 Dose: 40 mg Loratadine (Loratadine 10 Mg Tablet) 10 mg PO DAILY [facility] Last Admin: 10/28/21 11:19 Dose: 10 mg Non-Formulary Medication (Arformoterol [Brovana]) 2 ml INHALE BID [facility] Non-Formulary Medication (Budesonide) 1 ampul INHALE BID [facility] Non-Formulary Medication (Econazole) 1 appl TOPICAL DAILY [facility] Omeprazole (Omeprazole 20 Mg Capsule.Dr) 20 mg PO BID [facility] Last Admin: 10/28/21 11:19 Dose: 20 mg Senna (Sennosides 8.6 Mg Tablet) 17.2 mg PO BEDTIME PRN PRN Reason: Constipation Sodium Chloride (0.9 % Sodium Chloride Flush 3 Ml Syringe) 3 ml IVFLUSH QSHIFT [facility] Last Admin: 10/28/21 11:50 Dose: Not Given Trazodone HCl (Trazodone Hcl 100 Mg Tablet) 100 mg PO BEDTIME [facility] Home Medications Medication Instructions Recorded Confirmed Last Taken Type baclofen 10 mg tablet 0.5 - 1 tab PO BEDTIME PRN muscle 10/27/21 10/27/21 Unknown History spasm budesonide 0.5 mg/2 mL suspension 1 amp inhalation BID 10/27/21 10/27/21 Unknown History for nebulization cetirizine 10 mg tablet 1 tab PO DAILY 10/27/21 10/27/21 Unknown History econazole 1 % topical cream 1 appl topical DAILY 10/27/21 10/27/21 Unknown History fluoxetine 20 mg capsule 1 cap PO QAM 10/27/21 10/27/21 Unknown History naproxen 500 mg tablet 1 tab PO BID PRN pain 10/27/21 10/27/21 Unknown History trazodone 50 mg tablet 2 tab PO BEDTIME 10/27/21 10/27/21 Unknown History white petrolatum 42 % topical 1 ea topical DAILY 10/27/21 10/27/21 Unknown History ointment Physical Exam Vital Signs: Vital Signs: Last Vital Signs Temp 97.8 F 10/28/21 07:56 Pulse 86 10/28/21 07:56 Resp 18 10/28/21 07:56 BP 116/61 10/28/21 07:56 Pulse Ox 94 10/28/21 07:56 O2 Del Method 10/28/21 07:56 O2 Flow Rate 2 10/28/21 05:10 BMI result Body Mass Index 44.6 Const: General: cooperative HEENT: Head: Yes normal to inspection Face and sinus: Yes normal facial exam Mouth: Normal oral and palatal mucosa present Teeth and gingiva: dentition normal Eyes: General: appearance normal, both eyes and all related structures Pupils: Equal, round and reactive pupils present Resp: Effort & Inspection: normal respiratory effort Cardio: Rate: regular rate Rhythm: regular rhythm GI: Palpation (GI): Soft to palpation and nontender : General: Yes no CVA tenderness Back/Spine/Pelvis: Back: no CVA tenderness Skin: General skin exam: no rashes or lesions noted Neuro: General: moves all extremities Cranial nerves: Yes Equal, round and reactive pupils present Extrem: General: Yes normal to inspection Psych: Appearance: grossly normal (not able to give history,cognitive delay) Results Labs CBC & Chem 7: 10/28/21 06:05 10/28/21 06:05 Labs: Short CBC 10/27/21 10/28/21 Range/Units 19:19 06:05 WBC 10.4 10.3 (4.8-10.8) X10*3/uL Hgb 11.9 L 12.0 (12.0-16.0) g/dl Hct 42.4 43.5 (37.0-47.0) % Plt Count 274 337 (160-400) X10*3/uL BMP 10/27/21 10/28/21 15:43 06:05 Sodium 139 139 Potassium 4.3 4.4 Chloride 94 L 96 Carbon Dioxide 40 H* 35 H BUN 15 12 Creatinine 0.75 0.63 Calcium 8.7 8.7 Liver Function 10/27/21 Range/Units 15:43 Total Bilirubin 0.6 (0.0-1.0) mg/dL AST 18 (5-31) U/L ALT 17 (0-31) U/L Alkaline Phosphatase 74 (39-117) U/L Albumin 3.7 (3.5-5.0) g/dL Urine 10/27/21 Range/Units 15:48 Urine Color STRAW Urine Appearance CLEAR Urine pH 5.5 (5.0-8.0) Ur Specific [place] <= 1.005 (1.005-1.025) Urine Protein NEG (NEG-TRACE) MG/DL Urine Glucose (UA) NEG (NEG) MG/DL Assessment and Plan (1) COVID: Status: Acute (2) Chest pain: Status: Acute She has hypoxia baseline COVID may or may not be responsible for any acute symptoms COVID unknown duration symptoms (3) GEORGE (obstructive sleep apnea): Status: Acute Plan Dexamethasone may be used but stop if continues to be on room air. No indication for Remdesivir or baricitinib COVID isolation
[2021-10-28] MEDS: Albuterol/Iprat 2.5/0.5MG 3 ML AMPUL.NEB INHALE ×2 (15:35→19:10)
[2021-10-28] MEDS: Acetaminophen 325 MG TABLET 650 MG PO (21:18)
[2021-10-28] MEDS: traZODone HCL 100 MG TABLET PO (21:19)
[2021-10-29] VITALS: BP 119/51; PULSE 84; RESP 15; O2SAT 95
--- NOTE | 2021-10-29 01:18 | PC.NURSE ---
PT ASSISTED TO BEDSIDE COMMODE BY THIS RN
[2021-10-29 05:58] VITALS: BP 126/60; PULSE 79; RESP 12; O2SAT 98
[2021-10-29 07:13] LABS: Hematocrit 42.2 % (37.0-47.0); Hemoglobin 11.6 g/dl (12.0-16.0); Mean Corpuscular HGB Conc 27.5 g/dl (31.0-35.0); Mean Corpuscular Hemoglobin 21.3 pg (27.0-33.0); Mean Corpuscular Volume 77.4 fL (80.0-98.0); Mean Platelet Volume 11.1 fL (9.4-12.3); Platelet Count 312 X10*3/uL (160-400); Red Blood Count 5.45 X10*6/uL (4.20-5.50); Red Cell Distribution Width 18.1 % (11.0-16.0); White Blood Count 12.8 X10*3/uL (4.8-10.8)
[2021-10-29] MEDS: Albuterol/Iprat 2.5/0.5MG 3 ML AMPUL.NEB INHALE (07:26)
[2021-10-29 07:27] VITALS: PULSE 98; RESP 17; O2SAT 97
[2021-10-29 08:39] LABS: Anion Gap 9 (12-20); Blood Urea Nitrogen 16 mg/dL (9-16); Calcium 8.7 mg/dL (8.4-10.2); Carbon Dioxide 41 mmol/L (22-29); Chloride 94 mmol/L (96-108); Creatinine Clr Calc Pharmacy 127.8; Estimated Glomerular Filt Rate > 60; Glucose Fasting 111 mg/dL (60-99); Magnesium 2.2 mg/dL (1.6-2.6); Sodium 140 mmol/L (135-145)
[2021-10-29] MEDS: FLUoxetine HCl 20 MG CAPSULE PO (08:58)
[2021-10-29] MEDS: Loratadine 10 MG TABLET PO (08:58)
[2021-10-29] MEDS: Omeprazole 20 MG CAPSULE.DR PO (08:58)
[2021-10-29] MEDS: dexAMETHasone sod phosphate 4 MG/ML VIAL 6 MG IVPUSH (08:59)
[2021-10-29] MEDS: Furosemide 40 MG/4 ML VIAL IVPUSH (08:59)
[2021-10-29 09:09] VITALS: BP 112/63; PULSE 97; RESP 17; O2SAT 98
--- NOTE | 2021-10-29 09:14 | PM.DS ---
DS: Providers Provider Date of Service: 10/29/21 Date of admission: 10/27/21 23:24 Primary care physician: Miranda Maravilla DO Consults: 10/27/21 23:24 Consult to Infectious Diseases Routine Consulting Provider: Radha Kidd Reason for consultation: COVID PNA DS: Diagnosis Discharge Diagnosis (1) COVID: Status: Acute (2) Chest pain: Status: Acute (3) GEORGE (obstructive sleep apnea): Status: Acute DS: Summary Hospital Course Hospital Course: from initial hpi: Chief Complaint: hypoxia 46-year-old female with a past medical history of asthma, intellectual disability, GEORGE on oxygen at nighttime; presented to the hospital today with a chief complaint of hypoxia.? Patient history obtained from the patient and patient's mother at bedside.? Reportedly patient was been having shortness of breath and cough for the past 1 day.? Today she had a lot of coughing with the posttussive chest discomfort.? Went to the urgent care for evaluation noted to have hypoxia in 70s on room air; placed on supplemental oxygen subsequently sent to the ER for further evaluation.? Patient mentioned that her breathing is better currently.? On supplemental oxygen.? Reports her chest pain is posttussive.? Mentions that she has been having cough with whitish sputum production.? Denies any fevers.? Denies any recent travel or sick contacts.? ER course: Per ER team patient on presentation noted to be on supplemental oxygen; not in respiratory distress; COVID-19 positive; chest x-ray showed possible infiltrate; CT chest showed no evidence of pulmonary embolism.? Noted lung scar.? Admitted to the hospital for further management. hospital course: Patient was admitted for acute on chronic hypoxic respiratory failure that was multifactorial, primarily due to acute on chronic diastolic CHF and obesity hypoventilation syndrome/GEORGE due to morbid obesity, patient also noted to be COVID 19 positive. She was treated with IV Lasix and Decadron. Her symptoms significantly improved and she was tolerating her baseline 2 L. For her moderate persistent asthma she continued on her inhalers. Patient is feeling much better and will be discharged home, she should continue isolation per CDC protocol and resume oral Lasix, low-salt diet is recommended as well as weight loss. Time Spent with Patient Time attestation: Total time spent providing and/or coordinating discharge services: Discharge coordination time: Greater than 30 minutes Quality: Safe Use of Opioids Does Pt have an Active Cancer Diagnosis on the Problem List?: No Quality: Stroke Does the patient have a stroke diagnosis?: No Physical Exam Vital Signs: Vital Signs: Last Vital Signs Temp 97.6 F 10/28/21 17:59 Pulse 97 10/29/21 09:09 Resp 17 10/29/21 09:09 BP 112/63 10/29/21 09:09 Pulse Ox 98 10/29/21 09:09 O2 Del Method 10/29/21 09:09 O2 Flow Rate 2 10/29/21 09:09 BMI result Body Mass Index 44.6 General: AO X 3, no acute distress Resp: diminished bilateral, no accessory muscles used CVS: S1,S2,RRR GI: soft, non tender, non distended Neuro: motor grossly intact, alert Psych: appropriate affect, impaired insight DS: Data Data Completed and Pending Labs on day of discharge: Laboratory Results - last 24 hr 10/29/21 10/29/21 06:56 06:56 WBC 12.8 H RBC 5.45 Hgb 11.6 L Hct 42.2 MCV 77.4 L MCH 21.3 L MCHC 27.5 L RDW 18.1 H Plt Count 312 MPV 11.1 Absolute Nucleated RBC 0.000 Nucleated RBC % (auto) 0.0 Sodium 140 Potassium 4.0 Chloride 94 L Carbon Dioxide 41 H* Anion Gap 9 L BUN 16 Creatinine 0.67 Estim Creat Clear Calc 127.8 Estimated GFR > 60 Fasting Glucose 111 H Calcium 8.7 Magnesium 2.2 Preliminary micro results at discharge 10/27/21 15:48 Blood Culture - Preliminary Blood - Venous No growth after 24 hours. 10/27/21 15:45 Blood Culture - Preliminary Blood - Venous No growth after 24 hours. Discharge Plan Discharge Patient Disposition: Home, Self-Care Discharge Diagnosis: chf, covid Referrals: Miranda Maravilla DO [Primary Care Provider] - 1 Week Discharge Medications: Continued omeprazole magnesium [Prilosec OTC] 20 mg tablet,delayed release (DR/EC) 20 mg PO BID Qty: 30 0RF albuterol sulfate [Ventolin HFA] 90 mcg/actuation HFA aerosol inhaler 2 puff inhalation Q4-6H PRN (Reason: shortness of breath or wheezing) Qty: 8.5 0RF budesonide 0.5 mg/2 mL suspension for nebulization 1 amp inhalation BID naproxen 500 mg tablet 1 tab PO BID PRN (Reason: pain) white petrolatum 42 % ointment 1 ea topical DAILY trazodone 50 mg tablet 2 tab PO BEDTIME cetirizine 10 mg tablet 1 tab PO DAILY baclofen 10 mg tablet 0.5 - 1 tab PO BEDTIME PRN (Reason: muscle spasm) econazole 1 % cream 1 appl topical DAILY fluoxetine 20 mg capsule 1 cap PO QAM ipratropium-albuterol 0.5 mg-3 mg(2.5 mg base)/3 mL solution for nebulization 3 ml inhalation TID Qty: 270 6RF arformoterol [Brovana] 15 mcg/2 mL solution for nebulization 2 ml inhalation BID 30 Days Qty: 120 6RF furosemide 20 mg tablet 40 mg PO QAM 30 Days Qty: 60 3RF Discharge Orders: Discharge Order (Routine); Ordered 10/29/21 Ordered By: John Morocho Diet: Advance to usual diet Activity on Discharge: As tolerated Stand Alone Forms: Patient Portal Discharge page Care Plan Goals: recovery Health Concerns: covid, chf Plan of Treatment: isolation per protocol, use NIV at night, low salt diet, continue po lasix Assessment: see above
[2021-10-29] MEDS: 0.9 % Sodium Chloride Flush 3 ML SYRINGE IVFLUSH (09:23)
--- NOTE | 2021-10-29 09:24 | PC.NURSE ---
pt resting in bed comfortably with mother at bedside. All needs are currently being met
[2021-10-29 12:40] VITALS: BP 111/72; PULSE 91; RESP 15; TEMP 36.8; O2SAT 98
== END 2021-10-29 13:15 | disposition home or self-care (01) | DRG 137 ==
LOC: HO.ED 18:58 → HO.EDOVER 23:46
PROVIDERS: Admitting Provider Hospitalist; Emergency Provider Emergency Medicine Emergency Medical Services; PCP Family Medicine; Visit Provider Internal Medicine
DX: U07.1 COVID-19 (principal); Z99.81 Dependence on supplemental oxygen; E66.2 Morbid (severe) obesity with alveolar hypoventilation; J45.40 Moderate persistent asthma, uncomplicated; F79 Unspecified intellectual disabilities; Z68.41 Body mass index [BMI] 40.0-44.9, adult; Z79.899 Other long term (current) drug therapy
CPT/HCPCS: 36415; 71046; 71275; 80048; 80053; 81003; 83605; 83690; 83735; 83880; 84484; 85025; 85027; 85379; 85610; 85730; 87040; 87635; 93005; 93971; 94640; 96374; 96375; 99285; J0696; J1100; J1650; J1940; J2930; Q9967

== ENCOUNTER → 2021-11-10 14:40 | Outpatient (BNVA) | payer MEDICAID, SELFPAY | PROVIDERS: PCP Family Medicine; Visit Provider Internal Medicine Pulmonary Disease | DX: J45.909 Unspecified asthma, uncomplicated (principal); R06.00 Dyspnea, unspecified; G47.33 Obstructive sleep apnea (adult) (pediatric); Z99.81 Dependence on supplemental oxygen | CPT/HCPCS: 99212 ==

== ENCOUNTER 2022-01-05 10:44 | Outpatient (REF) | payer MEDICAID, SELFPAY ==
--- NOTE | ~2022-01-05 | XR_ITS ---
EXAMINATION: XR CHEST CLINICAL INFORMATION: Asthma with acute exacerbation COMPARISON: Prior chest October 2021 TECHNIQUE: 2 views of the chest were obtained. FINDINGS: No acute significant abnormality is noted involving the heart, lungs, mediastinum, bony thorax or soft tissues. The lungs remain clear. Postsurgical changes with orthopedic hardware present along the dorsal spine unchanged XR/XR chest 2V IMPRESSION: No acute disease
== END 2022-01-05 10:45 | disposition home or self-care (01) ==
LOC: HO.XRAY 10:44
PROVIDERS: Visit Provider Internal Medicine
DX: J45.901 Unspecified asthma with (acute) exacerbation (principal)
CPT/HCPCS: 71046

== ENCOUNTER 2022-01-10 15:11 | Outpatient (REF) | payer MEDICAID, SELFPAY ==
--- NOTE | ~2022-01-10 | XR_ITS ---
EXAMINATION: XR CHEST CLINICAL INFORMATION: Asthma with acute exacerbation COMPARISON: X-rays of the chest January 05, 2022 TECHNIQUE: 2 views of the chest were obtained. FINDINGS: Bone and soft tissues: Postsurgical changes with the parallel rods overlying the dorsal spine. There is a convex right curvature of the dorsal spine unchanged. Cardiomediastinal silhouette unremarkable and unchanged. Question subtle bilateral opacities in the lungs versus normal variation given the underpenetration regarding related x-ray technique. XR/XR chest 2V IMPRESSION: Question subtle edema versus artifactual due to technique. No focal abnormality
== END 2022-01-10 15:12 | disposition home or self-care (01) ==
LOC: HO.XRAY 15:11
PROVIDERS: Absent Provider Family Medicine; PCP Family Medicine; Visit Provider Internal Medicine
DX: J45.901 Unspecified asthma with (acute) exacerbation (principal)
CPT/HCPCS: 70450; 70486; 71045; 71046; 72125; 80048; 85025; 87635; 94640; 96374; 96375; 96376; 99285; J2270; J2405

== ENCOUNTER 2022-01-10 16:38 | Emergency (ER) | payer MEDICAID, SELFPAY ==
--- NOTE | ~2022-01-10 | CT_ITS ---
EXAMINATION: CT cervical spine wo IV con, CT head/brain wo IV con INDICATION INFORMATION: Reason for Exam sp fall COMPARISON: CT face 01/10/2022 TECHNIQUE: Separate noncontrast CT examinations of the head and cervical spine were performed. Coronal and sagittal images were created for each examination at the technologist workstation. This CT examination was performed using dose optimization techniques as appropriate, variously including the following: *Automated exposure control *Adjustment of mA and/or kV according to patient size (this includes techniques or standardized protocols for targeted exams where dose is matched to indication/reason for exam; i.e. extremities or head) *Use of iterative reconstruction technique DLP: 1600 mGy-cm FINDINGS: Head: No acute osseous or soft tissue abnormality. Redemonstration of fracture of the medial left orbital floor with herniation of extraconal orbital fat. The mastoid air cells are clear. Small layering fluid in the left maxillary sinus. There is no evidence of acute intracranial hemorrhage or territorial infarction. No abnormal mass effect or midline shift is seen. Mohan to white matter differentiation is well preserved. No extra-axial fluid collections are identified. No hydrocephalus. No significant volume loss. There is no abnormal attenuation within the brain parenchyma. Cervical spine: There is no evidence of acute cervical spine fracture. Vertebral bodies remain normal in height. Cervical straightening. Degenerative disc space height loss and endplate osteophytosis at C5-C6 and C6-C7. No pre- or paravertebral soft tissue abnormality is identified. Visualized portions of the lung apices are unremarkable. The thyroid gland is unremarkable. CT/CT cervical spine wo IV con IMPRESSION: 1. No acute intracranial abnormality. 2. No cervical spine fracture or traumatic malalignment.
--- NOTE | ~2022-01-10 | XR_ITS ---
EXAMINATION: XR CHEST CLINICAL INFORMATION: Shortness of breath COMPARISON: 01/10/2022 TECHNIQUE: Frontal view of the chest was obtained. FINDINGS: Lung volumes are symmetric. No focal consolidation is seen. No evidence of pneumothorax, pleural effusion, or pulmonary edema. Cardiac silhouette remains enlarged. Partially visualized spinal fusion hardware. XR/XR chest 1V IMPRESSION: No acute pulmonary findings. Cardiac silhouette remains enlarged.
--- NOTE | ~2022-01-10 | CT_ITS ---
EXAMINATION: CT MAXILLOFACIAL WITHOUT CONTRAST CLINICAL INFORMATION: Left orbital injury. COMPARISON: None available. TECHNIQUE: Multidetector helical imaging was performed in the axial plane with generation of coronal and sagittal reformatted images. This CT examination was performed using dose optimization techniques as appropriate, variously including the following: *Automated exposure control *Adjustment of mA and/or kV according to patient size (this includes techniques or standardized protocols for targeted exams where dose is matched to indication/reason for exam; i.e. extremities or head) *Use of iterative reconstruction technique DLP: 440 mGy-cm FINDINGS: Moderately depressed left orbital floor fracture with herniation of the extraconal adipose tissue of the left orbit into the left maxillary sinus. There is rounding of the left inferior rectus muscle, part of which appears between an osseous fragment and the residual anatomically positioned left orbital floor. No demonstrated discrete subperiosteal collection within the left orbit. Normal appearance of the intraconal adipose tissue bilaterally. Normal appearance of the extraconal adipose tissue of the right orbit. No evidence of traumatic injury to the remaining extraocular musculature. Normal appearance of the globes bilaterally. Mild preseptal soft tissue edema inferior to the left orbit. No discrete fluid collection. No radiopaque foreign bodies. No evidence of additional maxillofacial bone fractures. The zygomatic arches remain intact. No nasal bone fracture. The nasal septum remains midline. No evidence of mandibular or maxillary fracture. The mandibular condyles remain well-seated in their respective temporal articular grooves. Periapical lucency associated with the maxillary left central incisor. Small volume layering blood products within the left maxillary sinus. Mild mucosal thickening of the remaining paranasal sinuses. Mild to moderate sinusoidal deviation of the nasal septum. The visualized mastoid air cells and middle ear cavities are clear. No demonstrated significant intracranial abnormalities on limited evaluation. CT/CT facial bones wo IV con IMPRESSION: Left orbital blowout fracture. There is moderate herniation of the extraconal adipose tissue of the left orbit into the left maxillary sinus. Rounding of the left-sided inferior rectus muscle may indicate a degree of entrapment. No demonstrated intraorbital fluid collection. Small volume blood products within the left maxillary sinus. No evidence of additional acute traumatic injury of the maxillofacial bones.
[2022-01-10 17:43] VITALS: BP 130/83; PULSE 95; RESP 20; TEMP 36; O2SAT 71; BMI 45.3
[2022-01-10 17:50] VITALS: O2SAT 100
[2022-01-10 18:16] LABS: Anion Gap 18 (12-20); Blood Urea Nitrogen 14 mg/dL (9-16); Calcium 8.8 mg/dL (8.4-10.2); Carbon Dioxide 34 mmol/L (22-29); Chloride 95 mmol/L (96-108); Creatinine Clr Calc Pharmacy 105.4; Estimated Glomerular Filt Rate > 60; Glucose Random 99 mg/dL (60-115); Potassium 4.9 mmol/L (3.3-5.1); Sodium 142 mmol/L (135-145)
[2022-01-10 18:23] LABS: COVID-19 Test Negative (Negative); IDNOW Serial# 16C4AD1C
[2022-01-10 18:24] LABS: Hemoglobin 11.7 g/dl (12.0-16.0); Mean Platelet Volume 10.5 fL (9.4-12.3); SCAN SMEAR FLAG 1
[2022-01-10 18:27] LABS: Basophils Percent Auto 0.3 % (0-2); Eosinophils Absolute Auto 0.2 X10*3/uL (0.0-0.4); Eosinophils Percent Auto 1.7 % (0-4); Hematocrit 44.3 % (37.0-47.0); Imm Gran Abs Auto 0.04 X10*3/uL (0.00-0.03); Imm Gran Pct Auto 0.4 % (0.0-0.4); Lymphocytes Absolute Auto 1.4 X10*3/uL (1.2-4.9); Lymphocytes Percent Auto 14.1 % (20-40); Mean Corpuscular HGB Conc 26.4 g/dl (31.0-35.0); Mean Corpuscular Hemoglobin 18.9 pg (27.0-33.0); Mean Corpuscular Volume 71.6 fL (80.0-98.0); Monocytes Absolute Auto 0.7 X10*3/uL (0.1-1.2); Monocytes Percent Auto 6.7 % (2-11); Neutrophils Absolute Auto 7.6 x10*3/uL (2.0-8.3); Neutrophils Percent Auto 76.8 % (45-73); Platelet Count 283 X10*3/uL (160-400); Red Blood Count 6.19 X10*6/uL (4.20-5.50); Red Cell Distribution Width 20.4 % (11.0-16.0); White Blood Count 9.9 X10*3/uL (4.8-10.8)
[2022-01-10 18:33] LABS: PLT ABN DIST 1
[2022-01-10 18:34] LABS: MANUAL DIFF FLAG NO
[2022-01-10 21:00] VITALS: BP 134/84; PULSE 91; RESP 18; TEMP 37.3; O2SAT 98
[2022-01-10 21:12] VITALS: BP 118/82; PULSE 89; TEMP 36.8; O2SAT 97
--- NOTE | 2022-01-10 21:24 | PC.NURSE ---
Pt has stable V/S, Pt left eye is swollen red and black. Pt has small laceration from the fall she had experienced in the bathroom. Pt has was not able to observed, Pt sclera is bright red and a lot mucus on the eye that is hard to open the ye. Pt is cognitive delay and she is not able to communicate. Pt mom is at bedside and is able to communicate but she is Faroese speaking only. Will continue to communicate.
--- NOTE | 2022-01-10 22:11 | ED.EYEPROB ---
HPI - Eye Problem General Chief complaint: Eye Problems Stated complaint: L eye swelling Time Seen by Provider: 01/10/22 22:10 Source: patient and family Mode of arrival: wheelchair Limitations: no limitations History of Present Illness HPI Narrative: Patient 46 years obese 250 lb patient with history of GEORGE oxygen dependent 2LPM at nighttime, with intellectual disability around 05:00 in the morning patient was in the bathroom bent down lost balance and hit her right eye to the edge of bathtub since then patient noticed swelling of the eye with redness of the sclera no loss of vision no other injuries patient does have a purulent discharge from both eyes for last few days no double vision or loss of vision Related Data Home Medications Medication Instructions Recorded Confirmed baclofen 10 mg tablet 0.5 - 1 tab PO BEDTIME PRN muscle 10/27/21 10/27/21 spasm budesonide 0.5 mg/2 mL suspension 1 amp inhalation BID 10/27/21 10/27/21 for nebulization cetirizine 10 mg tablet 1 tab PO DAILY 10/27/21 10/27/21 econazole 1 % topical cream 1 appl topical DAILY 10/27/21 10/27/21 fluoxetine 20 mg capsule 1 cap PO QAM 10/27/21 10/27/21 naproxen 500 mg tablet 1 tab PO BID PRN pain 10/27/21 10/27/21 trazodone 50 mg tablet 2 tab PO BEDTIME 10/27/21 10/27/21 white petrolatum 42 % topical 1 ea topical DAILY 10/27/21 10/27/21 ointment Previous Rx's Medication Instructions Recorded omeprazole magnesium 20 mg 20 mg PO BID #30 tabs 06/14/20 tablet,delayed release (Prilosec OTC) arformoterol 15 mcg/2 mL solution 2 ml inhalation BID 30 days #120 mL 05/04/21 for nebulization (Brovana) albuterol sulfate 90 mcg/actuation 2 puff inhalation Q4-6H PRN 09/27/21 aerosol inhaler (Ventolin HFA) shortness of breath or wheezing #8.5 grams furosemide 20 mg tablet 40 mg PO QAM 30 days #60 tabs 10/25/21 ipratropium 0.5 mg-albuterol 3 mg 3 ml inhalation TID #270 mL 12/19/21 (2.5 mg base)/3 mL nebulization soln Allergies Allergy/AdvReac Type Severity Reaction Status Date / Time No Known Allergies Allergy Unknown Verified 11/10/21 14:43 [No Known Allergies*] Review of Systems Review of Systems: Yes all other systems are reviewed and are negative [facility] Past Medical History Medical History Asthma Intellectual disability Oxygen desaturation during sleep Sleep apnea Surgical History History of esophagogastroduodenoscopy (EGD) History of open reduction and internal fixation (ORIF) procedure Status post spinal surgery Social History Social History Patient Tobacco Use Status: Never used Tobacco Use of substances other than those prescribed or required for medical reasons: No Advance Directives: Yes Advance Directives Information Provided: No Advance Directives on File: No Patient : No Physical Exam Vital Signs: Vital Signs: Last Vital Signs Temp 98.6 F 01/11/22 06:55 Pulse 96 01/11/22 06:55 Resp 12 01/11/22 06:55 BP 133/69 01/11/22 06:55 Pulse Ox 96 01/11/22 06:55 O2 Del Method 01/11/22 06:55 O2 Flow Rate 2 01/11/22 06:00 BMI result Body Mass Index 45.3 Appearance: Alert. Oriented X3. No acute distress.obese Eyes: PERRL, scleral hematoma with limited abduction of the left eye, ecchymosis around the left eye with purulent discharge ENT: Pharynx normal. Oral Mucosa moist Neck: Normal inspection. Neck supple. CVS: Normal heart rate and rhythm. Pulses normal. Respiratory: No respiratory distress. Equal air entry bilateral, no wheezing/rales/rhonchi Abdomen: Soft and nontender. Bowel sounds are present, no mass palpable, no CVA tenderness Skin: Skin warm and dry. Normal skin color. Normal skin turgor. Extremities: No lower extremity edema. No calf tenderness Neuro: Oriented X 3. No motor deficit. No sensory deficit.No cerebellar signs , cranial nerves II-XII intact Eyes: Eyes/upper lids images: 1. Scleral hemorrhage+ with ecchymosis left eyeball limited abduction of left eye MDM - Eye Problem MDM Narrative Medical decision making narrative: 0100 Patient with left orbital blowout fracture no maxillofacial surgeon in our hospital case discussed with Dr. Trejo at [facility] ER will take the patient in the ER for evaluation 5 am Unable to get transferred to go to [facility] till 07:00 vitals are stable patient is still in the ER awaiting for the EMS Lab Data Attestation: I reviewed the patient's lab results. Result diagrams: 01/10/22 17:56 01/10/22 17:56 Labs: Lab Results 01/10/22 01/10/22 01/10/22 Range/Units 17:56 17:56 17:56 WBC 9.9 (4.8-10.8) X10*3/uL RBC 6.19 H (4.20-5.50) X10*6/uL Hgb 11.7 L (12.0-16.0) g/dl Hct 44.3 (37.0-47.0) % MCV 71.6 L (80.0-98.0) fL MCH 18.9 L (27.0-33.0) pg MCHC 26.4 L (31.0-35.0) g/dl RDW 20.4 H (11.0-16.0) % Plt Count 283 (160-400) X10*3/uL MPV 10.5 (9.4-12.3) fL Immature Gran % (Auto) 0.4 (0.0-0.4) % Neut % (Auto) 76.8 H (45-73) % Lymph % (Auto) 14.1 L (20-40) % [place] % (Auto) 6.7 (2-11) % Eos % (Auto) 1.7 (0-4) % Baso % (Auto) 0.3 (0-2) % Lymph # (Auto) 1.4 (1.2-4.9) X10*3/uL [place] # (Auto) 0.7 (0.1-1.2) X10*3/uL Eos # (Auto) 0.2 (0.0-0.4) X10*3/uL Baso # (Auto) 0.0 (0.0-0.2) X10*3/uL Abs Immat Gran (auto) 0.04 H (0.00-0.03) X10*3/uL Absolute Neuts (auto) 7.6 (2.0-8.3) x10*3/uL Absolute Nucleated RBC 0.000 (0.0-0.012) X10*3/uL Nucleated RBC % (auto) 0.0 (0.0-0.2) /100WBC Sodium 142 (135-145) mmol/L Potassium 4.9 D (3.3-5.1) mmol/L Chloride 95 L (96-108) mmol/L Carbon Dioxide 34 H (22-29) mmol/L Anion Gap 18 (12-20) BUN 14 (9-16) mg/dL Creatinine 0.79 (0.5-1.4) mg/dL Estim Creat Clear Calc 105.4 Estimated GFR > 60 Random Glucose 99 (60-115) mg/dL Calcium 8.8 (8.4-10.2) mg/dL COVID-19 (TANIYA) Negative (Negative) COVID-19 Clin Com See Note Imaging Data CT scan - head: Attestation: I personally reviewed and interpreted this imaging study as follows: Radiologist's impression: [address] [address] [address] Scan Report Signed Patient: Brandon Lang MR#: [id number] : 1975 Acct:[id number] Age/Sex: 46 / F ADM Date: 01/10/22 Loc: .ED Attending Dr: Ordering Physician: Cirilo Qiu MD Date of Service: 01/11/22 Procedure(s): CT head/brain wo IV con Accession Number(s): [id number] cc: Cirilo Qiu MD~ EXAMINATION: ?CT cervical spine wo IV con, CT head/brain wo IV con INDICATION INFORMATION: Reason for Exam sp fall COMPARISON: CT face 01/10/2022 TECHNIQUE: Separate noncontrast CT examinations of the head and cervical spine were performed. Coronal and sagittal images were created for each examination at the technologist workstation. This CT examination was performed using dose optimization techniques as appropriate, variously including the following: *Automated exposure control *Adjustment of mA and/or kV according to patient size (this includes techniques or standardized protocols for targeted exams where dose is matched to indication/reason for exam; i.e. extremities or head) *Use of iterative reconstruction technique DLP:? 1600 mGy-cm FINDINGS: Head: No acute osseous or soft tissue abnormality. Redemonstration of fracture of the medial left orbital floor with herniation of extraconal orbital fat. The mastoid air cells are clear. Small layering fluid in the left maxillary sinus. There is no evidence of acute intracranial hemorrhage or territorial infarction. No abnormal mass effect or midline shift is seen. Mohan to white matter differentiation is well preserved. No extra-axial fluid collections are identified. No hydrocephalus. No significant volume loss. There is no abnormal attenuation within the brain parenchyma. Cervical spine: There is no evidence of acute cervical spine fracture. Vertebral bodies remain normal in height.? ? Cervical straightening. Degenerative disc space height loss and endplate osteophytosis at C5-C6 and C6-C7. No pre- or paravertebral soft tissue abnormality is identified.? Visualized portions of the lung apices are unremarkable. The thyroid gland is unremarkable. CT/CT head/brain wo IV con IMPRESSION: ? 1.? No acute intracranial abnormality. ? 2.? No cervical spine fracture or traumatic malalignment. ?[place] [address] CT Scan Report Signed Patient: Brandon Lang MR#: [id number] : 1975 Acct:[id number] Age/Sex: 46 / F ADM Date: 01/10/22 Loc: HO.ED Attending Dr: Ordering Physician: Cirilo Qiu MD Date of Service: 01/10/22 Procedure(s): CT facial bones wo IV con Accession Number(s): [id number] cc: Cirilo Qiu MD~ EXAMINATION: CT MAXILLOFACIAL WITHOUT CONTRAST CLINICAL INFORMATION: Left orbital injury. COMPARISON: None available. TECHNIQUE: Multidetector helical imaging was performed in the axial plane with generation of coronal and sagittal reformatted images. This CT examination was performed using dose optimization techniques as appropriate, variously including the following: *Automated exposure control *Adjustment of mA and/or kV according to patient size (this includes techniques or standardized protocols for targeted exams where dose is matched to indication/reason for exam; i.e. extremities or head) *Use of iterative reconstruction technique DLP: 440 mGy-cm FINDINGS: Moderately depressed left orbital floor fracture with herniation of the extraconal adipose tissue of the left orbit into the left maxillary sinus. There is rounding of the left inferior rectus muscle, part of which appears between an osseous fragment and the residual anatomically positioned left orbital floor. No demonstrated discrete subperiosteal collection within the left orbit. Normal appearance of the intraconal adipose tissue bilaterally. Normal appearance of the extraconal adipose tissue of the right orbit. No evidence of traumatic injury to the remaining extraocular musculature. Normal appearance of the globes bilaterally. Mild preseptal soft tissue edema inferior to the left orbit. No discrete fluid collection. No radiopaque foreign bodies. No evidence of additional maxillofacial bone fractures. The zygomatic arches remain intact. No nasal bone fracture. The nasal septum remains midline. No evidence of mandibular or maxillary fracture. The mandibular condyles remain well-seated in their respective temporal articular grooves. Periapical lucency associated with the maxillary left central incisor. Small volume layering blood products within the left maxillary sinus. Mild mucosal thickening of the remaining paranasal sinuses. Mild to moderate sinusoidal deviation of the nasal septum. The visualized mastoid air cells and middle ear cavities are clear. No demonstrated significant intracranial abnormalities on limited evaluation. CT/CT facial bones wo IV con IMPRESSION: Left orbital blowout fracture. There is moderate herniation of the extraconal adipose tissue of the left orbit into the left maxillary sinus. Rounding of the left-sided inferior rectus muscle may indicate a degree of entrapment. No demonstrated intraorbital fluid collection. Small volume blood products within the left maxillary sinus. ? No evidence of additional acute traumatic injury of the maxillofacial bones. Dictated By: Madhu Coto DO Signed By: <Electronically signed by Madhu Coto DO in OV> 01/10/[address] [address] XRay Report Signed Patient: Brandon Lang MR#: [id number] : 1975 Acct:[id number] Age/Sex: 46 / F ADM Date: 01/10/22 Loc: HO.ED Attending Dr: Ordering Physician: Cirilo Qiu MD Date of Service: 01/11/22 Procedure(s): XR chest 1V Accession Number(s): [id number] cc: Cirilo Qiu MD~ EXAMINATION: XR CHEST CLINICAL INFORMATION: Shortness of breath COMPARISON: 01/10/2022 TECHNIQUE: Frontal view of the chest was obtained. FINDINGS: Lung volumes are symmetric. No focal consolidation is seen. No evidence of pneumothorax, pleural effusion, or pulmonary edema. Cardiac silhouette remains enlarged. Partially visualized spinal fusion hardware. XR/XR chest 1V IMPRESSION: No acute pulmonary findings. Cardiac silhouette remains enlarged. ? Critical Care Time Critical Care Time Critical Care Time: Yes Total Critical Care Time: 55 Attestation: I spent 55 minutes of critical care, with interventions, assessments, speaking to patient, consultants, and family. Discharge Plan Discharge Clinical Impression: Closed blow-out fracture of left orbit Patient Disposition: [facility] Transfer Details: To [facility] ER Prescriptions: No Action ipratropium-albuterol 0.5 mg-3 mg(2.5 mg base)/3 mL solution for nebulization 3 ml inhalation TID Qty: 270 6RF omeprazole magnesium [Prilosec OTC] 20 mg tablet,delayed release (DR/EC) 20 mg PO BID Qty: 30 0RF albuterol sulfate [Ventolin HFA] 90 mcg/actuation HFA aerosol inhaler 2 puff inhalation Q4-6H PRN (Reason: shortness of breath or wheezing) Qty: 8.5 0RF budesonide 0.5 mg/2 mL suspension for nebulization 1 amp inhalation BID naproxen 500 mg tablet 1 tab PO BID PRN (Reason: pain) white petrolatum 42 % ointment 1 ea topical DAILY trazodone 50 mg tablet 2 tab PO BEDTIME cetirizine 10 mg tablet 1 tab PO DAILY baclofen 10 mg tablet 0.5 - 1 tab PO BEDTIME PRN (Reason: muscle spasm) econazole 1 % cream 1 appl topical DAILY fluoxetine 20 mg capsule 1 cap PO QAM arformoterol [Brovana] 15 mcg/2 mL solution for nebulization 2 ml inhalation BID 30 Days Qty: 120 6RF furosemide 20 mg tablet 40 mg PO QAM 30 Days Qty: 60 3RF
[2022-01-10 22:28] VITALS: BP 122/77; PULSE 99; RESP 20; TEMP 37.3; O2SAT 98
[2022-01-10] MEDS: Tobramycin Sulfate 0.3% Sol Op 5 ML BTL 2 DROP EYE-BOTH (22:30)
--- NOTE | 2022-01-10 22:31 | PC.NURSE ---
Pt V/S are stable, Pt is alert only but mom is bedside. Pt meds were administered as order.Will continue to monitor.
--- NOTE | 2022-01-10 23:54 | PC.NURSE ---
call out to [facility] transfer line @1050 regarding transfer of patient
[2022-01-10 23:56] VITALS: BP 112/69; PULSE 87; RESP 20; TEMP 36.9; O2SAT 98
[2022-01-11] VITALS (8 sets, daily range): BP systolic 104–133; BP diastolic 57–72; PULSE 89–105; RESP 12–20; TEMP 36.9–37; O2SAT 93–96
[2022-01-11] MEDS: ondansetron HCL 4 MG/2 ML VIAL IVPUSH (00:24)
[2022-01-11] MEDS: Morphine Sulfate 4 MG/ML CARTRIDGE IVPUSH ×2 (00:24→02:36)
[2022-01-11] MEDS: Albuterol Sulfate 2.5 MG, Albuterol/Iprat 2.5/0.5MG 3 ML 3 ML INHALE (01:45)
--- NOTE | 2022-01-11 01:47 | PC.NURSE ---
Call out to [facility] @0107 regarding transport to [facility] ER. Spoke to [facility] who informed me there are no BLS trucks available for transport until the earliest @0700 @0118 Hunter from [facility] called back to update me that she could not pass on the transport to another ambulance service company. [facility] is going to continue calling other ambulance companies to transport patient
--- NOTE | 2022-01-11 02:39 | PC.NURSE ---
Pt is grimacing, restlessness from pain, pt is given meds as order by the provider. Pt mom is at bedside, pt denies nausea. Pt was re-position. Pt mom reported pt has a prescription for cpap machine but she has not started using it yet. Pt mom reported pt utilizes the oxygen 2L NC every night and as needed during the day. will continue to monitor.
== END 2022-01-11 07:27 | disposition short-term general hospital (02) ==
PROVIDERS: Emergency Provider Internal Medicine; PCP Family Medicine
DX: S02.32XA Fracture of orbital floor, left side, initial encounter for closed fracture (principal); R07.89 Other chest pain; M54.2 Cervicalgia; R51.9 Headache, unspecified; W01.10XA Fall on same level from slipping, tripping and stumbling with subsequent striking against unspecified object, initial encounter; Y93.9 Activity, unspecified; Y92.002 Bathroom of unspecified non-institutional (private) residence as the place of occurrence of the external cause; Y99.9 Unspecified external cause status; Z20.822 Contact with and (suspected) exposure to COVID-19; Z79.899 Other long term (current) drug therapy
CPT/HCPCS: 70450; 70486; 71045; 72125; 80048; 85025; 87635; 94640; 96374; 96375; 96376; 99285; J2270; J2405

== ENCOUNTER 2022-01-18 10:14 | Outpatient (REF) | payer MEDICAID, SELFPAY ==
[2022-01-18 12:59] LABS: B Type Natriuretic Peptide 146 pg/mL (<100)
== END 2022-01-18 10:15 | disposition home or self-care (01) ==
LOC: HO.LAB 10:14
PROVIDERS: PCP Family Medicine; Referring Provider Family Medicine; Visit Provider Internal Medicine Cardiovascular Disease
DX: I50.32 Chronic diastolic (congestive) heart failure (principal); R79.89 Other specified abnormal findings of blood chemistry; Z99.81 Dependence on supplemental oxygen; Z79.899 Other long term (current) drug therapy
CPT/HCPCS: 36415; 83880; 99212

== ENCOUNTER → 2022-01-30 10:47 | Outpatient (BNVA) | payer MEDICAID, SELFPAY | PROVIDERS: PCP Family Medicine; Visit Provider Internal Medicine Pulmonary Disease | DX: R06.00 Dyspnea, unspecified (principal); Z99.81 Dependence on supplemental oxygen | CPT/HCPCS: 94618; 99211 ==

== ENCOUNTER → 2022-02-08 14:05 | Outpatient (BNVA) | payer MEDICAID, SELFPAY | PROVIDERS: PCP Family Medicine; Visit Provider Internal Medicine Pulmonary Disease | DX: J45.40 Moderate persistent asthma, uncomplicated (principal); G47.33 Obstructive sleep apnea (adult) (pediatric); R06.00 Dyspnea, unspecified; Z99.81 Dependence on supplemental oxygen | CPT/HCPCS: 99212 ==

== ENCOUNTER 2022-03-23 15:32 | Emergency (ER) | payer MEDICAID, SELFPAY ==
--- NOTE | ~2022-03-23 | XR_ITS ---
EXAMINATION: XR CHEST CLINICAL INFORMATION: Hypoxia COMPARISON: 01/11/2022. TECHNIQUE: AP upright portable view of the chest was obtained. 3:50 PM, patient is rotated. FINDINGS: The heart appears enlarged. Stabilization rods are again noted to be in position. No distinct left lung infiltrate or effusion. There is an opacity in the right base which may reflect combination of infiltrate or atelectasis closely apposed to prominent right pulmonary vessel. This is not distinctly seen on the previous evaluation. No distinct right effusion. XR/XR chest 1V IMPRESSION: Opacity in the right base may in part be related to a prominent pulmonary vessel with adjacent infiltrate or atelectasis. This is new since the previous evaluation. Cardiac enlargement. Stabilization rods in position.
[2022-03-23 15:45] VITALS: BP 131/73; BP 134/83; PULSE 92; PULSE 94; RESP 16; TEMP 36.7; O2SAT 97; BMI 43.4
--- NOTE | 2022-03-23 15:53 | ED.URI ---
HPI - URI/Sore Throat General Chief Complaint: Upper Respiratory Symptoms Stated Complaint: lissette garcia from walkin clinic Time Seen by Provider: 03/23/22 15:45 Source: patient, family and old records reviewed Mode of arrival: ambulatory Limitations: no limitations History of Present Illness HPI Narrative: 47-year-old female with a history of asthma, intellectual disability, GEORGE, exertional hypoxia on chronic 2L [place] oxygen who presents to the ER via EMS from a walk-in clinic for low oxygen saturations. Patient was found to be saturating 77% on room air. Patient is usually on 1-2 L nasal cannula when out about. Patient and mother also reports patient has had a cough for the last couple of days along with sore throat, headache and generally not feeling well. She denies any difficulty breathing or respiratory distress. She denies any nausea, vomiting, diarrhea or abdominal pain. She states she usually wears her oxygen when she ambulates and at night time. She only wears it during the day when she needs it. She was not wearing it today when at the clinic. MD elicited complaint: cough, sore throat and nasal congestion Pertinent past history: asthma Onset (ago): day(s) (2) Consistency: intermittent Severity: moderate Description of mucous: clear Able to tolerate fluids by mouth: Yes Exacerbating factors: nothing Relieving factors: nothing Associated symptoms: headache, nasal congestion and cough Treatments prior to arrival: none Related Data Home Medications Medication Instructions Recorded Confirmed baclofen 10 mg tablet 0.5 - 1 tab PO BEDTIME PRN muscle 10/27/21 10/27/21 spasm budesonide 0.5 mg/2 mL suspension 1 amp inhalation BID 10/27/21 10/27/21 for nebulization econazole 1 % topical cream 1 appl topical DAILY 10/27/21 10/27/21 white petrolatum 42 % topical 1 ea topical DAILY 10/27/21 10/27/21 ointment cetirizine 10 mg tablet 10 mg PO DAILY 01/18/22 fluoxetine 20 mg capsule 20 mg PO QAM 01/18/22 naproxen 500 mg tablet 500 mg PO BID PRN pain 01/18/22 trazodone 50 mg tablet 100 mg PO BEDTIME 01/18/22 Previous Rx's Medication Instructions Recorded omeprazole magnesium 20 mg 20 mg PO BID #30 tabs 03/08/21 tablet,delayed release (Prilosec OTC) arformoterol 15 mcg/2 mL solution 2 ml inhalation BID 30 days #120 mL 05/04/21 for nebulization (Brovana) albuterol sulfate 90 mcg/actuation 2 puff inhalation Q4-6H PRN 09/27/21 aerosol inhaler (Ventolin HFA) shortness of breath or wheezing #8.5 grams ipratropium 0.5 mg-albuterol 3 mg 3 ml inhalation TID #270 mL 12/19/21 (2.5 mg base)/3 mL nebulization soln furosemide 20 mg tablet 40 mg PO QAM #60 tabs 03/06/22 amoxicillin 875 mg-potassium 1 tab PO Q12H #20 tabs 03/23/22 clavulanate 125 mg tablet prednisone 20 mg tablet 40 mg PO DAILY #10 tabs 03/23/22 Allergies Allergy/AdvReac Type Severity Reaction Status Date / Time No Known Allergies Allergy Unknown Verified 02/08/22 14:07 [No Known Allergies*] Review of Systems Review of Systems: Constitutional: No Fever, No Chills ENT/Mouth: + sore throat, + Rhinorrhea, No Swallowing Difficulty Cardiovascular: No Chest Pain, No SOB, No Orthopnea, No Edema Respiratory: + Cough, No Sputum, No Wheezing, No dyspnea Gastrointestinal: No Nausea, No Vomiting, No Diarrhea, No abdominal Pain Musculoskeletal: No joint pain, No Myalgias Skin: No Skin Lesions, No rash Neuro: No Weakness, No Dizziness, + Headache Heme/Lymph: No Lymphadenopathy PMFSH Past Medical History Medical History Asthma Intellectual disability Oxygen desaturation during sleep Sleep apnea Status post repair of fracture of orbit Surgical History History of esophagogastroduodenoscopy (EGD) History of open reduction and internal fixation (ORIF) procedure Status post spinal surgery Family History Family History Mother Diabetes Hypertension Father Hypertension Social History Social History Patient Tobacco Use Status: Never used Tobacco Advance Directives: No Advance Directives Information Provided: No Physical Exam Vital Signs: Vital Signs: Last Vital Signs Temp 98.0 F 03/23/22 15:45 Pulse 92 03/23/22 15:45 Resp 16 03/23/22 15:45 BP 131/73 03/23/22 15:45 Pulse Ox 97 03/23/22 15:45 O2 Del Method 03/23/22 15:45 Oxygen Flow Rate 1 03/23/22 15:45 BMI result Body Mass Index 43.4 Appearance: Alert. Oriented X3. No acute distress. Eyes: Pupils equal, round and reactive to light. ENT: Pharynx normal. Neck: Normal inspection. Neck supple. CVS: Normal heart rate and rhythm. Pulses normal. Respiratory: No respiratory distress. Breath sounds Diminished at the bilateral bases without any rhonchi, wheezes or rales. Speaking complete sentences. Abdomen: Obese,Soft and nontender. +BS x4 Skin: Skin warm and dry. Normal skin color. Normal skin turgor. No rashes. Extremities: No lower extremity edema. Neuro: awake and alert, following commands, developmental disability noted but able to communicate appropriately. Steady gait. Course Course Course Narrative: 47 yo female with history of intellectual disability, asthma, hypoxia on chronic O2 who presents to the ER from walk-in clinic for evaluation of hypoxia. She was reportedly found to be hypoxic to 77% on RA at the clinic. On 2 L nasal cannula she is 97% here in no respiratory distress. Will check chest x-ray to rule out pneumonia. Will also check strep throat swab given her sore throat as well as a viral PCR. Will monitor on continuous pulse oximetry to see if she desaturates again. Reevaluation(s) Reevaluation #1: Patient kept on her 2 L nasal cannula. She denies any episodes of desaturation while in the ER. Her viral swabs are negative. She is negative for strep throat. Her chest x-ray was reviewed. It is showing a possible right base opacity that is new from prior. Difficult to fully evaluate given her body habitus. Given her symptoms however will treat empirically for possible pneumonia with Augmentin and steroids. encouraged to wear her oxygen 247 and monitor her pulse oximetry at home. Encourage follow-up with her PCP next week and as well as her pulmonary doctor. Return precautions were discussed. Mother is comfortable taking her home with oral antibiotics and monitoring. Comfortable with DC Medical Decision Making Lab Data Labs: Lab Results 03/23/22 03/23/22 Range/Units 15:56 15:58 Influenza Type A (PCR) NEGATIVE (Negative) Influenza Type B (PCR) NEGATIVE (Negative) RSV RNA Qual (PCR) NEGATIVE (Negative) SARS-CoV-2 RNA (RT-PCR) NEGATIVE (Negative) S. pyogenes GrpA DENNIS Negative (Negative) Discharge Plan Discharge Clinical Impression: Pneumonia Patient Disposition: Home, Self-Care Instructions: Pneumonia (ED) Additional Instructions: You tested negative for influenza, COVID-19, RSV and strep throat. Your x-ray showed possible new pneumonia. Take the prescribed antibiotic and steroid for this. Wearing her oxygen 24 hours per day and monitor oxygen levels at home. Goal oxygen level is 90% or above. If your oxygen levels are below this despite wearing oxygen call 911 or come back to the ER for further evaluation. Her line rest and drink plenty of fluids. Recommend following up with your doctor next week. Delta negativo en la prueba de influenza, COVID-19, RSV y faringitis estreptoc?cica. Orellana radiograf?a mostr? kaylee posible nueva neumon?a. Nowata el antibi?bassam y el esteroide recetados para esto. Lleve orellana ox?funmilayo las 24 horas del d?a y controle los niveles de ox?funmilayo en casa. El nivel de ox?funmilayo objetivo es del 90 % o superior. Si holly niveles de ox?funmilayo est?n por debajo de esto a pesar de usar ox?funmilayo, llame al 911 o regrese a la jose de emergencias para kaylee evaluaci?n adicional. Orellana l?lloyd descansar y beber muchos l?quidos. Recomendar el seguimiento con orellana m?dico la pr?xima semana. Prescriptions: New amoxicillin-pot clavulanate 875-125 mg tablet 1 tab PO Q12H Qty: 20 0RF prednisone 20 mg tablet 40 mg PO DAILY Qty: 10 0RF No Action ipratropium-albuterol 0.5 mg-3 mg(2.5 mg base)/3 mL solution for nebulization 3 ml inhalation TID Qty: 270 6RF furosemide 20 mg tablet 40 mg PO QAM Qty: 60 3RF omeprazole magnesium [Prilosec OTC] 20 mg tablet,delayed release (DR/EC) 20 mg PO BID Qty: 30 0RF albuterol sulfate [Ventolin HFA] 90 mcg/actuation HFA aerosol inhaler 2 puff inhalation Q4-6H PRN (Reason: shortness of breath or wheezing) Qty: 8.5 0RF budesonide 0.5 mg/2 mL suspension for nebulization 1 amp inhalation BID white petrolatum 42 % ointment 1 ea topical DAILY baclofen 10 mg tablet 0.5 - 1 tab PO BEDTIME PRN (Reason: muscle spasm) econazole 1 % cream 1 appl topical DAILY cetirizine 10 mg tablet 10 mg PO DAILY fluoxetine 20 mg capsule 20 mg PO QAM naproxen 500 mg tablet 500 mg PO BID PRN (Reason: pain) trazodone 50 mg tablet 100 mg PO BEDTIME arformoterol [Brovana] 15 mcg/2 mL solution for nebulization 2 ml inhalation BID 30 Days Qty: 120 6RF Referrals: [facility] [Provider Group] Center,[facility] [Primary Care Provider] - Print Language: Paraguayan
[2022-03-23 16:26] LABS: Strep A Nucleic Acid Negative (Negative)
[2022-03-23 16:57] LABS: Influenza A PCR NEGATIVE (Negative); Influenza B PCR NEGATIVE (Negative); Resp Syncy Virus RNA Qual PCR NEGATIVE (Negative); SARS COV2 PCR INHOUSE NEGATIVE (Negative)
== END 2022-03-23 18:05 | disposition home or self-care (01) ==
PROVIDERS: Physician Assistant; Emergency Provider Student in an Organized Health Care Education/Training Program
DX: J18.9 Pneumonia, unspecified organism (principal); R06.02 Shortness of breath; R51.9 Headache, unspecified; R05.9 Cough, unspecified; Z20.822 Contact with and (suspected) exposure to COVID-19; Z79.899 Other long term (current) drug therapy
CPT/HCPCS: 0241U; 71045; 87651; 99282; 99283

== ENCOUNTER 2022-03-29 13:25 | Outpatient (REF) | payer MEDICAID, SELFPAY | END 2022-03-29 13:26 | disposition home or self-care (01) | LOC: HO.MAMMO 13:25 | PROVIDERS: PCP Family Medicine; Visit Provider Family Medicine | DX: Z12.31 Encounter for screening mammogram for malignant neoplasm of breast (principal) | CPT/HCPCS: 77063; 77067 ==

== ENCOUNTER 2022-04-05 15:20 | Inpatient (IN) | payer MEDICAID, SELFPAY ==
[2022-04-05] VITALS (7 sets, daily range): BP systolic 110–130; BP diastolic 71–80; PULSE 89–103; RESP 16–20; TEMP 36.6–37.2; O2SAT 86–100; BMI 48.7
--- NOTE | ~2022-04-05 | XR_ITS ---
EXAMINATION: XR CHEST CLINICAL INFORMATION: History of pneumonia. Shortness of breath. COMPARISON: Previous chest x-rays most recent 03/23/2022 TECHNIQUE: Frontal view of the chest was obtained. FINDINGS: Exam is limited due to patient body habitus. The cardiac and mediastinal contours are stable. There is question of a left perihilar infiltrate. The lungs are otherwise clear. No pleural effusion or pneumothorax. Scoliosis and rods in the thoracic and upper lumbar spine. XR/XR chest 1V IMPRESSION: Limited exam. Question left perihilar infiltrate.
--- NOTE | 2022-04-05 15:50 | PC.NURSE ---
Pt coming from day program for low oxygen, pt was not wearing oxygen at time. Wears oxygen intermittently. Seen recently for similar issue, pt was encouraged to wear oxygen 24/7 and being treated for pneumonia. Mother at bedside. Swab obtained and sent.
--- NOTE | 2022-04-05 15:54 | ECG_ITS ---
Test Reason : SOB Blood Pressure : / mmHG Vent. Rate : 104 BPM Atrial Rate : 104 BPM P-R Int : 130 ms QRS Dur : 088 ms QT Int : 342 ms P-R-T Axes : 042 075 -09 degrees QTc Int : 449 ms Sinus tachycardia Abnormal QRS-T angle, consider primary T wave abnormality Abnormal ECG When compared with ECG of 27-OCT-2021 16:41, Previous ECG has undetermined rhythm, needs review Referred By: Yolanda Olivarez Electronically Signed By:NINO GROSSMAN MD
--- NOTE | 2022-04-05 16:01 | ED.SOB ---
HPI - SOB/Dyspnea General Chief Complaint: Dyspnea Stated Complaint: LOW O2SAT PER STAFF, NO PT COMP, 98% 4LPM PER EMS Time Seen by Provider: 04/05/22 15:51 Source: patient, family and EMS Mode of arrival: EMS Limitations: other (Intellectual disability) History of Present Illness HPI Narrative: Patient comes to the emergency room from a day program. According to the staff, patient's oxygen saturation was in the mid 80s. Patient states that she has chronic shortness of breath, but did not feel any different. Patient denies chest pain. Patient uses oxygen at home she especially at bedtime. Also, whenever she needs to get up and walk, patient is to take her oxygen with her, 2 L at baseline. Here in the emergency room, patient states that she does not lie in the hand. Patient's mother states that the patient is at baseline, at home the patient has not had fever chills and has not been coughing. Per EMS, patient's oxygen saturation has been in the high 90s on 2 L. Here in the emergency room, when oxygen was turned off, oxygen saturation 95% on room air. Patient has no complaints. Of note, on March 23, patient was diagnosed with pneumonia, sent home with Augmentin, finished a course of antibiotics, the mother reports that the patient has been doing well since then. Related Data Home Medications Medication Instructions Recorded Confirmed baclofen 10 mg tablet 0.5 - 1 tab PO BEDTIME PRN muscle 10/27/21 10/27/21 spasm budesonide 0.5 mg/2 mL suspension 1 amp inhalation BID 10/27/21 10/27/21 for nebulization econazole 1 % topical cream 1 appl topical DAILY 10/27/21 10/27/21 white petrolatum 42 % topical 1 ea topical DAILY 10/27/21 10/27/21 ointment cetirizine 10 mg tablet 10 mg PO DAILY 01/18/22 fluoxetine 20 mg capsule 20 mg PO QAM 01/18/22 naproxen 500 mg tablet 500 mg PO BID PRN pain 01/18/22 trazodone 50 mg tablet 100 mg PO BEDTIME 01/18/22 albuterol sulfate 2.5 mg/3 mL 1 amp inhalation Q4H PRN Shortness 04/05/22 04/05/22 (0.083 %) solution for nebulization Of Breath albuterol sulfate 90 mcg/actuation 2 puff inhalation Q4H PRN 04/05/22 04/05/22 aerosol inhaler (Ventolin HFA) shortness of breath or wheezing docusate sodium 100 mg capsule 1 cap PO BID PRN Constipation 04/05/22 04/05/22 fluticasone propionate 50 2 spray intranasal DAILY 04/05/22 04/05/22 mcg/actuation nasal spray,suspension furosemide 20 mg tablet 40 mg PO DAILY 04/05/22 04/05/22 lamotrigine 100 mg tablet 100 mg PO DAILY 04/05/22 04/05/22 polyvinyl alcohol 1.4 % eye drops 1 drp ophthalmic (eye) BID PRN dry 04/05/22 04/05/22 eyes sennosides 8.6 mg tablet (senna) 2 tab PO BEDTIME PRN constipation 04/05/22 04/05/22 Previous Rx's Medication Instructions Recorded arformoterol 15 mcg/2 mL solution 2 ml inhalation BID 30 days #120 mL 05/04/21 for nebulization (Brovana) ipratropium 0.5 mg-albuterol 3 mg 3 ml inhalation TID #270 mL 12/19/21 (2.5 mg base)/3 mL nebulization soln Allergies Allergy/AdvReac Type Severity Reaction Status Date / Time No Known Allergies Allergy Unknown Verified 02/08/22 14:07 [No Known Allergies*] Review of Systems Review of Systems: Constitutional : No Weight loss, No Fever, No Chills, No Night Sweats, No Fatigue, No Malaise ENT/Mouth : No Hearing loss, No Ear Pain, No Nasal Congestion, No Sinus Pain, No Hoarseness, No sore throat, No Rhinorrhea, No Swallowing Difficulty Eyes: No Eye Pain, No Swelling, No Redness, No Foreign Body, No Discharge, No Vision Changes Cardiovascular : No Chest Pain, No SOB, No Dyspnea on Exertion, No Orthopnea, No Edema, No Palpitations Respiratory : No Cough, No Sputum, No Wheezing, No Smoke Exposure, chronic Dyspnea Gastrointestinal : No Nausea, No Vomiting, No Diarrhea, No Constipation, No abdominal Pain, No Hematochezia, No Melena Genitourinary : no irregular bleeding, No Dysuria, No Urinary Frequency, No Hematuria, No Urinary Incontinence, No Urgency, No Flank Pain, No Urinary Flow Changes, No Hesitancy Musculoskeletal : No joint pain, No Myalgias, No Joint Swelling Skin : No Skin Lesions, No rash Neuro : No Weakness, No Numbness, No Paresthesias, No Loss of Consciousness, No Dizziness, No Headache Psych : No Anxiety/Panic, No Depression, No SI/HI/AH/VH, No Social Issues, Heme/Lymph: No Bruising, No Bleeding,No Lymphadenopathy Endocrine : No Polyuria, No Polydipsia, No Temperature Intolerance [facility] Past Medical History Medical History Asthma Intellectual disability Oxygen desaturation during sleep Sleep apnea Status post repair of fracture of orbit Surgical History History of esophagogastroduodenoscopy (EGD) History of open reduction and internal fixation (ORIF) procedure Status post spinal surgery Family History Family History Mother Diabetes Hypertension Father Hypertension Social History Social History Patient Tobacco Use Status: Never used Tobacco Smoked in Last 30 Days: No Use of substances other than those prescribed or required for medical reasons: No Advance Directives: No Advance Directives Information Provided: No Physical Exam Vital Signs: Vital Signs: Last Vital Signs Temp 98.5 F 04/05/22 15:36 Pulse 100 04/05/22 15:46 Resp 18 04/05/22 15:46 BP 124/73 04/05/22 15:36 Pulse Ox 98 04/05/22 15:46 O2 Del Method 04/05/22 15:46 O2 Flow Rate 2 04/05/22 15:46 BMI result Body Mass Index 48.7 Const: Other: Appearance: Alert. Oriented X3. No acute distress. Eyes: Pupils equal, round and reactive to light. ENT: Pharynx normal. Neck: Normal inspection. Neck supple. No lymph nodes noted. No crepitus CVS: Normal heart rate and rhythm. Pulses normal. Normal S1 and S2 Respiratory: No respiratory distress. Breath sounds normal. No Wheezing. No rales Abdomen: Soft and nontender. No rigidity. No distention. Skin: Skin warm and dry. Normal skin color. Normal skin turgor. Extremities: No lower extremity edema. No Lacerations. No Rash Neuro: Oriented X 3. No motor deficit. No sensory deficit. Moving all extremities. No slurred speech. CN 2 through 12 grossly intact Psych: calm, cooperative, normal affect Course Course Course Narrative: We will obtain basic lab work and chest x-ray. Patient is recovering from pneumonia. Finished her course of antibiotics. Patient has no symptoms. Oxygen saturation 95% on room air Patient's oxygen saturation dropped to 82% on room air. Even with 2 L, her oxygen was in the high 80s. With 4 L, oxygen saturation back to the mid 90s. Patient was recently diagnosed with right-sided pneumonia, took antibiotics at home, now has pneumonia on the left side requiring more oxygen. 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 It is unlikely that patient will do well with p.o. antibiotics. Blood cultures and lactic acid pending. Patient being given IV ceftriaxone and azithromycin. Fluids being given in an ideal body weight of 45 kg, patient is morbidly obese. Discussed the patient with Dr. Aguilar, pt being admitted Medical Decision Making Differential Diagnosis Differential Diagnoses: The differential diagnosis associated with the presentation includes (COVID, influenza, pneumonia, RSV) Admission/Observation Consideration of admission/observation: Escalation of care including admission/observation considered (Patient failed outpatient treatment, now she has pneumonia on the other lung. Requires more O2 than her baseline) Consult Healthcare Provider Management of the patient was discussed with: Hospitalist (Dr. Aguilar agrees to admit the patient) Lab Data MDM Lab Attestation statement: I reviewed the patient's lab results. Result Diagrams: 04/05/22 16:09 04/05/22 16:09 Labs: Lab Results 04/05/22 04/05/22 04/05/22 Range/Units 15:41 16:09 16:09 WBC 13.6 H (4.8-10.8) X10*3/uL RBC 5.96 H (4.20-5.50) X10*6/uL Hgb 11.8 L (12.0-16.0) g/dl Hct 44.3 (37.0-47.0) % MCV 74.3 L (80.0-98.0) fL MCH 19.8 L (27.0-33.0) pg MCHC 26.6 L (31.0-35.0) g/dl RDW 20.0 H (11.0-16.0) % Plt Count 312 (160-400) X10*3/uL MPV 10.9 (9.4-12.3) fL Immature Gran % (Auto) 0.5 H (0.0-0.4) % Neut % (Auto) 78.3 H (45-73) % Lymph % (Auto) 11.5 L (20-40) % [place] % (Auto) 6.2 (2-11) % Eos % (Auto) 3.1 (0-4) % Baso % (Auto) 0.4 (0-2) % Lymph # (Auto) 1.6 (1.2-4.9) X10*3/uL [place] # (Auto) 0.8 (0.1-1.2) X10*3/uL Eos # (Auto) 0.4 (0.0-0.4) X10*3/uL Baso # (Auto) 0.1 (0.0-0.2) X10*3/uL Abs Immat Gran (auto) 0.07 H (0.00-0.03) X10*3/uL Absolute Neuts (auto) 10.7 H (2.0-8.3) x10*3/uL Absolute Nucleated RBC 0.000 (0.0-0.012) X10*3/uL Nucleated RBC % (auto) 0.0 (0.0-0.2) /100WBC Smear Tech's Comments VERIFIED VBG pH (7.32-7.43) VBG pCO2 mmHg VBG pO2 mmHg VBG HCO3 (22-26) mmol/L VBG O2 Saturation % VBG Base Excess mmol/L Sodium 138 (135-145) mmol/L Potassium 4.0 (3.3-5.1) mmol/L Chloride 94 L (96-108) mmol/L Carbon Dioxide 39 H (22-29) mmol/L Anion Gap 9 L (12-20) BUN 10 (9-16) mg/dL Creatinine 0.63 (0.5-1.4) mg/dL Estim Creat Clear Calc 126.5 Estimated GFR > 60 Random Glucose 113 (60-115) mg/dL Calcium 9.0 (8.4-10.2) mg/dL B-Natriuretic Peptide (<100) pg/mL Influenza Type A (PCR) NEGATIVE (Negative) Influenza Type B (PCR) NEGATIVE (Negative) RSV RNA Qual (PCR) NEGATIVE (Negative) SARS-CoV-2 RNA (RT-PCR) NEGATIVE (Negative) 04/05/22 04/05/22 Range/Units 16:09 16:13 WBC (4.8-10.8) X10*3/uL RBC (4.20-5.50) X10*6/uL Hgb (12.0-16.0) g/dl Hct (37.0-47.0) % MCV (80.0-98.0) fL MCH (27.0-33.0) pg MCHC (31.0-35.0) g/dl RDW (11.0-16.0) % Plt Count (160-400) X10*3/uL MPV (9.4-12.3) fL Immature Gran % (Auto) (0.0-0.4) % Neut % (Auto) (45-73) % Lymph % (Auto) (20-40) % [place] % (Auto) (2-11) % Eos % (Auto) (0-4) % Baso % (Auto) (0-2) % Lymph # (Auto) (1.2-4.9) X10*3/uL [place] # (Auto) (0.1-1.2) X10*3/uL Eos # (Auto) (0.0-0.4) X10*3/uL Baso # (Auto) (0.0-0.2) X10*3/uL Abs Immat Gran (auto) (0.00-0.03) X10*3/uL Absolute Neuts (auto) (2.0-8.3) x10*3/uL Absolute Nucleated RBC (0.0-0.012) X10*3/uL Nucleated RBC % (auto) (0.0-0.2) /100WBC Smear Tech's Comments VBG pH 7.41 (7.32-7.43) VBG pCO2 63 mmHg VBG pO2 53 mmHg VBG HCO3 40 H (22-26) mmol/L VBG O2 Saturation 80.0 % VBG Base Excess 13.2 mmol/L Sodium (135-145) mmol/L Potassium (3.3-5.1) mmol/L Chloride (96-108) mmol/L Carbon Dioxide (22-29) mmol/L Anion Gap (12-20) BUN (9-16) mg/dL Creatinine (0.5-1.4) mg/dL Estim Creat Clear Calc Estimated GFR Random Glucose (60-115) mg/dL Calcium (8.4-10.2) mg/dL B-Natriuretic Peptide 151 H (<100) pg/mL Influenza Type A (PCR) (Negative) Influenza Type B (PCR) (Negative) RSV RNA Qual (PCR) (Negative) SARS-CoV-2 RNA (RT-PCR) (Negative) Independent Interpretation I performed an independent interpretation of an: Plain X-Ray (My interpretation: Bilateral pneumonia, please see radiology report) Radiology Impression Discussion of test interpretation with radiology: I have reviewed the radiologist's reading. Radiologist Impression: FINDINGS: Exam is limited due to patient body habitus. The cardiac and mediastinal contours are stable. There is question of a left perihilar infiltrate. The lungs are otherwise clear. No pleural effusion or pneumothorax. Scoliosis and rods in the thoracic and upper lumbar spine. XR/XR chest 1V IMPRESSION: Limited exam. Question left perihilar infiltrate. Independent Historian Clinical information obtained from an independent historian. History obtained from or confirmed by: Parent (Patient's mother who is the supervisor pipeline maintenance) Critical Care Time Critical Care Time Critical Care Time: Yes Total Critical Care Time: 60 Attestation: I have personally provided critical care time. Time includes review of lab data, radiology results, discussion with consultants, and monitoring for potential decompensation. Intervention performed as documented. Discharge Plan Discharge Clinical Impression: Pneumonia Patient Disposition: Admitted As Inpatient
[2022-04-05 16:18] LABS: Venous Blood Gas Refer to POC result
[2022-04-05 16:19] LABS: VBG Base Excess 13.2 mmol/L; VBG HCO3 40 mmol/L (22-26); VBG pCO2 63 mmHg; VBG pH 7.41 (7.32-7.43); VBG pO2 53 mmHg
[2022-04-05 16:19] LABS: Eosinophils Absolute Auto 0.4 X10*3/uL (0.0-0.4); Eosinophils Percent Auto 3.1 % (0-4); Hemoglobin 11.8 g/dl (12.0-16.0); Mean Corpuscular Volume 74.3 fL (80.0-98.0); SCAN SMEAR FLAG 1
[2022-04-05 16:21] LABS: Basophils Absolute Auto 0.1 X10*3/uL (0.0-0.2); Basophils Percent Auto 0.4 % (0-2); Hematocrit 44.3 % (37.0-47.0); Imm Gran Abs Auto 0.07 X10*3/uL (0.00-0.03); Imm Gran Pct Auto 0.5 % (0.0-0.4); Lymphocytes Absolute Auto 1.6 X10*3/uL (1.2-4.9); Lymphocytes Percent Auto 11.5 % (20-40); MANUAL DIFF FLAG SCAN; Mean Corpuscular HGB Conc 26.6 g/dl (31.0-35.0); Mean Corpuscular Hemoglobin 19.8 pg (27.0-33.0); Mean Platelet Volume 10.9 fL (9.4-12.3); Monocytes Absolute Auto 0.8 X10*3/uL (0.1-1.2); Monocytes Percent Auto 6.2 % (2-11); Neutrophils Absolute Auto 10.7 x10*3/uL (2.0-8.3); Neutrophils Percent Auto 78.3 % (45-73); Platelet Count 312 X10*3/uL (160-400); Red Blood Count 5.96 X10*6/uL (4.20-5.50); White Blood Count 13.6 X10*3/uL (4.8-10.8)
[2022-04-05 16:24] LABS: PLT ABN DIST 1
[2022-04-05 16:28] LABS: Influenza A PCR NEGATIVE (Negative); Influenza B PCR NEGATIVE (Negative); Resp Syncy Virus RNA Qual PCR NEGATIVE (Negative); SARS COV2 PCR INHOUSE NEGATIVE (Negative)
[2022-04-05 16:37] LABS: Anion Gap 9 (12-20); Blood Urea Nitrogen 10 mg/dL (9-16); Carbon Dioxide 39 mmol/L (22-29); Chloride 94 mmol/L (96-108); Creatinine Clr Calc Pharmacy 126.5; Estimated Glomerular Filt Rate > 60; Glucose Random 113 mg/dL (60-115); Sodium 138 mmol/L (135-145)
[2022-04-05 16:38] LABS: SLIDE REVIEW VERIFIED
[2022-04-05 16:43] LABS: B Type Natriuretic Peptide 151 pg/mL (<100)
--- NOTE | 2022-04-05 17:33 | PHA.MEDREC ---
Pharmacy Consult ? Medication Reconciliation Pharmacy has completed the medication reconciliation.
[2022-04-05] MEDS: 0.9 % Sodium Chloride 2,000 ML 999 ML IVCONT (17:40)
[2022-04-05] MEDS: cefTRIAXone sodium 1 GM in 0.9 % Sodium Chloride 50 ML IV (17:40)
--- NOTE | 2022-04-05 17:53 | P.HPHOSP_ITS ---
History of Present Illness Date of Service: 04/05/22 Chief Complaint: low oxygen level 47 year old famale with morbid obesity, chronic hypoventilation and O2 dependent at home, asthma, intelectual disability. She was brought from a day program when they noted that her oxygen saturation was in the 80s, she is has history of being chronically sob but was not able to give any detail history, history was provided by her mother. According to the mother she has not been sick, no fever. EMS reported the patient's O2 been in the 90s the whole time and in the ED never dropped below 90 even on room air. Of note she was seen in the ED mid March and treated for pneumonia and sent home. Today WBC is 13, no tachypnea, no fever, no cough. CXR Limited exam. Question left perihilar infiltrate. Given Azithro and Ceftriaxone in the ED. ? Review of Systems Review of Systems: no cough, no sob, no fever, Yes all other systems are reviewed and are negative [facility], LAT[facility] Medical History Asthma Intellectual disability Oxygen desaturation during sleep Sleep apnea Status post repair of fracture of orbit Family History Mother Diabetes Hypertension Father Hypertension Surgical History History of esophagogastroduodenoscopy (EGD) History of open reduction and internal fixation (ORIF) procedure Status post spinal surgery Social History Household Members: Family Housing: House Do you presently have visiting nurse or other home services: Yes Patient Tobacco Use Status: Never used Tobacco Smoked in Last 30 Days: No Use of substances other than those prescribed or required for medical reasons: No Currently Displaying Signs/Symptoms of Drug Intoxication Withdrawal: No Have you been hit, kicked, punched, or otherwise hurt by someone within the past year? If so, by whom?: No Do you feel safe in your current relationship?: No Current Relationship Is there a partner from a previous relationship who is making you feel unsafe now?: No Are you made to feel afraid or neglected: No Advance Directives: No Advance Directives Information Provided: No Do you have thoughts of harming others: None Do you have a plan to hurt others: No Plan Recently lost weight without trying: No How much weight loss: Not applicable Eating poorly because of decreased appetite: No Nutrition screen score: 0 Nutrition Risks: No Nutritional Risk Patient : No : No Poor oral hygiene: No Meds Allergies Allergy/AdvReac Type Severity Reaction Status Date / Time No Known Allergies Allergy Unknown Verified 02/08/22 14:07 [No Known Allergies*] Active Medications: Current Medications Azithromycin 500 mg/ Sodium (Chloride) 250 mls @ 125 mls/hr IV ONCE ONE Stop: 04/05/22 19:06 Sodium Chloride (Ns) 2,000 mls @ 999 mls/hr IVCONT .Q2H1M ONE Stop: 04/05/22 19:08 Last Admin: 04/05/22 17:40 Dose: 999 mls/hr Pharmacy Consult (Consult Rx Perform Med Rec) 1 each MISCELLANE ONCE PRN PRN Reason: Consult order Home Medications Medication Instructions Recorded Confirmed Last Taken Type baclofen 10 mg tablet 1 tab PO BEDTIME PRN muscle spasm 10/27/21 04/05/22 Unknown History budesonide 0.5 mg/2 mL suspension 1 amp inhalation BID 10/27/21 04/05/22 04/05/22 History for nebulization econazole 1 % topical cream 1 appl topical DAILY 10/27/21 04/05/22 04/05/22 History white petrolatum 42 % topical 1 ea topical BID PRN Dry Skin 10/27/21 04/05/22 Unknown History ointment cetirizine 10 mg tablet 10 mg PO DAILY 01/18/22 04/05/22 04/05/22 History fluoxetine 20 mg capsule 20 mg PO DAILY 01/18/22 04/05/22 04/05/22 History naproxen 500 mg tablet 500 mg PO BID PRN pain 01/18/22 04/05/22 Unknown History trazodone 50 mg tablet 100 mg PO BEDTIME PRN Insomnia 01/18/22 04/05/22 Unknown History albuterol sulfate 2.5 mg/3 mL 1 amp inhalation Q4H PRN Shortness 04/05/22 04/05/22 Unknown History (0.083 %) solution for nebulization Of Breath albuterol sulfate 90 mcg/actuation 2 puff inhalation Q4H PRN 04/05/22 04/05/22 Unknown History aerosol inhaler (Ventolin HFA) shortness of breath or wheezing docusate sodium 100 mg capsule 1 cap PO BID PRN Constipation 04/05/22 04/05/22 Unknown History fluticasone propionate 50 2 spray intranasal DAILY 04/05/22 04/05/22 04/05/22 History mcg/actuation nasal spray,suspension furosemide 20 mg tablet 40 mg PO DAILY 04/05/22 04/05/22 04/05/22 History lamotrigine 100 mg tablet 100 mg PO DAILY 04/05/22 04/05/22 04/05/22 History polyvinyl alcohol 1.4 % eye drops 1 drp ophthalmic (eye) BID PRN dry 04/05/22 04/05/22 Unknown History eyes sennosides 8.6 mg tablet (senna) 2 tab PO BEDTIME PRN constipation 04/05/22 04/05/22 Unknown History Physical Exam Vital Signs and Narrative: Vital Signs: Last Vital Signs Temp 98.5 F 04/05/22 15:36 Pulse 100 04/05/22 15:46 Resp 18 04/05/22 15:46 BP 124/73 04/05/22 15:36 Pulse Ox 98 04/05/22 15:46 O2 Del Method 04/05/22 15:46 O2 Flow Rate 2 04/05/22 15:46 BMI result Body Mass Index 48.7 Const: Other: Constitutional: Alert, in no distress, overweight. Mental Status: Oriented to person, place and time. Eyes: Pupils are equal, round and reactive to light. Ear, Nose and Throat: Oropharynx clear, mucous membranes moist. Ears and nose without eformities. Trachea midline. Respiratory: Clear to auscultation. No wheezing, rales or rhonchi. Cardiovascular: S1 S2 regular. No murmurs, rubs or gallops. Gastrointestinal: Abdomen soft, non-tender, non-distended. Normal bowel sounds.? Neurologic: Cranial nerves II-XII grossly intact. No focal neurological deficits. Moves all extremities spontaneously.? Skin: No rashes or lesions.? Musculoskeletal: No cyanosis or clubbing. Psychiatric: Normal mood and affect? Results Labs CBC and Chem 7: 04/06/22 05:44 04/05/22 16:09 Imaging Radiologist's Impressions: Impressions Chest X-Ray 04/05/22 16:28 IMPRESSION: Limited exam. Question left perihilar infiltrate. Assessment and Plan (1) Pneumonia: Status: Acute Plan ? Hypoxia at Day care.. no hypoxia noted by EMS or in ED, ?not reliable equ ipment at day care. at baseline on 2 liter at home, continue PNA--could be residual from recent outpatient PNA, but given increase WBC. Will treat again. -Add Levaquin 750 daily x 5 days mild intermitent asthma--no exacerbation, routine inhalers morbid obesity--weight loss advised elevated bnp of 150--no clinical features of heart failure and therefore of no clinical significance at this time full code Admission to [facility] midnights for PNA that failed outpatient therapy Time Spent With Patient Time: Total time managing care of this patient today ____ minutes. Quality Stroke Does the patient have a stroke diagnosis?: No VTE Prior VTE?: No VTE Risk Level:: Medical - moderate - high VTE Device Contraindication: Treatment Not Indicated VTE Drug Contraindication: N/A - Med Ordered
--- NOTE | 2022-04-05 17:57 | PC.NURSE ---
IV established, blood cultures and lactic obtained and sent. Antibiotics and fluids infusing.
[2022-04-05 18:02] LABS: Lactic Acid 0.9 mmol/L (0.5-2.0)
[2022-04-05] MEDS: Azithromycin 500 MG in 0.9 % Sodium Chloride 250 ML 125 MG IV (18:17)
[2022-04-05] MEDS: Albuterol/Iprat 2.5/0.5MG 3 ML AMPUL.NEB INHALE (21:10)
[2022-04-05] MEDS: Enoxaparin Sodium 40 MG/0.4 ML SYRINGE SUBCUT (21:18)
[2022-04-05] MEDS: 0.9 % Sodium Chloride Flush 3 ML SYRINGE IVFLUSH (22:57)
[2022-04-05] MEDS: FLUoxetine HCl 20 MG CAPSULE PO (22:57)
[2022-04-06 04:00] VITALS: BP 131/84; PULSE 100; RESP 17; TEMP 36.2; O2SAT 95
[2022-04-06 06:44] LABS: Hemoglobin 11.6 g/dl (12.0-16.0); Mean Corpuscular HGB Conc 26.4 g/dl (31.0-35.0); Mean Corpuscular Volume 75.7 fL (80.0-98.0); Mean Platelet Volume 10.6 fL (9.4-12.3); Platelet Count 301 X10*3/uL (160-400); Red Blood Count 5.81 X10*6/uL (4.20-5.50); Red Cell Distribution Width 20.2 % (11.0-16.0); White Blood Count 11.8 X10*3/uL (4.8-10.8)
[2022-04-06 07:32] VITALS: BP 119/70; PULSE 89; RESP 18; TEMP 36.1; O2SAT 95
[2022-04-06] MEDS: 0.9 % Sodium Chloride Flush 3 ML SYRINGE IVFLUSH (08:12)
[2022-04-06] MEDS: lamoTRIgine 100 MG TABLET PO (08:12)
[2022-04-06] MEDS: FLUoxetine HCl 20 MG CAPSULE PO (08:12)
[2022-04-06] MEDS: Furosemide 40 MG TABLET PO (08:12)
[2022-04-06 08:25] VITALS: PULSE 93; RESP 16; O2SAT 98
[2022-04-06] MEDS: Albuterol/Iprat 2.5/0.5MG 3 ML AMPUL.NEB INHALE (08:25)
--- NOTE | 2022-04-06 09:12 | MHC.CM.PN ---
PATIENT LIVES WITH HER MOTHER/GUARDIAN FORMS REQUESTED TO BE BROUGHT IN FOR MEDICAL RECORD. PATIENT RELIES ON A WALKER, HOME O2, AND INHALERS. SHE ATTENDS A DAY PROGRAM - AT [facility] IN [place]. 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 PLAN IS HOME WITH RESUMPTION OF CARE AT [place]
--- NOTE | 2022-04-06 09:57 | P.CDIC_ITS ---
CDI Concurrent Query Documentation Clarification: PHYSICIAN'S DOCUMENTATION REQUEST Date of Query: 04/06/22 0957 Patient Name: Brandon Lang Admit Date: 04/05/22 Dear Doctor, A review of the medical record indicates additional documentation may be needed. Please review below and update the documentation accordingly. Clinical Indicators: Risk Factors/Clinical Indicators/Treatments per H&P: ? Hypoxia at Day care.. no hypoxia noted by EMS or in ED, ?not reliable equipment at day care. at baseline on 2 liter at home, continue Recognized standard criteria for respiratory failure includes: (Source: [facility] Hospitalist Feb 2013) ABGs (1 or more) Symptoms: ? PO2 <60 or RA SpO2 <91% ? Tachypnea, SOB, dyspnea ? PcO2 >50 and pH <7.35 ? Pallor or cyanosis ? pO2 decrease or pcO2 increase ? Anxiety or restlessness by 10 mm/Hg from baseline if known ? Use of accessory muscles ? Retractions (grunting in newborns) ? Unable to speak in complete sentences P/F ratio < 300 Supplemental O2 requirement of 40% or more Intubation is not required Clarify which of the following accurately represents the patient's respiratory status: * Chronic respiratory failure * Hypoxia * Other (please specify) * Unable to determine Please include type if known: * Hypoxic * Hypercapnic * Hypoxic and hypercapnic * Unable to determine Use of terms such as suspected, likely, concern for, or probable (associated with a specific diagnosis that is being evaluated, monitored, or treated as if it exists) are acceptable and can be coded in the inpatient setting, when documented at the time of discharge. Thank you, Lucinda Real RN Extension: [phone] Please use your independent medical judgment in providing your response. THIS QUERY IS PART OF THE PERMANENT MEDICAL RECORD Provider Response: Other Other Diagnosis: chronic respiratory failure
--- NOTE | 2022-04-06 09:58 | P.DS_ITS ---
DS: Providers Provider Date of Service: 04/06/22 Date of admission: 04/05/22 20:16 Primary care physician: [facility] DS: Diagnosis Discharge Diagnosis (1) Pneumonia: Status: Acute DS: Summary Hospital Course Hospital Course: Chief Complaint: low oxygen level 47 year old famale with morbid obesity, chronic hypoventilation and O2 dependent at home, asthma, intelectual disability. She was brought from a day program when they noted that her oxygen saturation was in the 80s, she is has history of being chronically sob but was not able to give any detail history, history was provided by her mother. According to the mother she has not been sick, no fever. EMS reported the patient's O2 been in the 90s the whole time and in the ED never dropped below 90 even on room air. Of note she was seen in the ED mid March and treated for pneumonia? and sent home. Today WBC is 13, no tachypnea, no fever, no cough. CXR?Limited exam. Question left perihilar infiltrate. Given Azithro and Ceftriaxone in the ED. Hospital course: Patient was observed overnight after getting IV antibiotics in the emergency room. There was no time that hypoxia was observed during the patient stay, however there was increased WBC and the questionable finding on checks x-ray and could be presumably be residual from a prior pneumonia that was recently treated patient will be given an additional antibiotic consisted of Levaquin for 5 days. She is otherwise doing well and will be going home. This was discussed with the mother ? Hypoxia at Day care.. no hypoxia noted by EMS or in ED, ?not reliable equipment at day care. at baseline on 2 liter at home, continue PNA--could be residual from recent outpatient PNA, but given increase WBC. Will treat again. -Add Levaquin 750 daily x 5 days mild intermitent asthma--no exacerbation, routine inhalers morbid obesity--weight loss advised elevated bnp of 150--no clinical features of heart failure and therefore of no clinical significance at this time Dispo: home Time Spent with Patient Time attestation: Total time managing care of this patient today ____ minutes. Discharge coordination time: Greater than 30 minutes Quality: Safe Use of Opioids Does Pt have an Active Cancer Diagnosis on the Problem List?: No Quality: Stroke Does the patient have a stroke diagnosis?: No Physical Exam Vital Signs: Vital Signs: Last Vital Signs Temp 96.9 F 04/06/22 07:32 Pulse 93 04/06/22 08:25 Resp 16 04/06/22 08:25 BP 119/70 04/06/22 07:32 Pulse Ox 95 04/06/22 07:32 O2 Del Method 04/06/22 07:32 O2 Flow Rate 2 04/06/22 07:32 BMI result Body Mass Index 48.7 DS: Data Data Completed and Pending Labs on day of discharge: Laboratory Results - last 24 hr 04/05/22 04/05/22 04/05/22 15:41 16:09 16:09 WBC 13.6 H RBC 5.96 H Hgb 11.8 L Hct 44.3 MCV 74.3 L MCH 19.8 L MCHC 26.6 L RDW 20.0 H Plt Count 312 MPV 10.9 Immature Gran % (Auto) 0.5 H Neut % (Auto) 78.3 H Lymph % (Auto) 11.5 L Irwin % (Auto) 6.2 Eos % (Auto) 3.1 Baso % (Auto) 0.4 Lymph # (Auto) 1.6 Irwin # (Auto) 0.8 Eos # (Auto) 0.4 Baso # (Auto) 0.1 Abs Immat Gran (auto) 0.07 H Absolute Neuts (auto) 10.7 H Absolute Nucleated RBC 0.000 Nucleated RBC % (auto) 0.0 Smear Tech's Comments VERIFIED VBG pH VBG pCO2 VBG pO2 VBG HCO3 VBG O2 Saturation VBG Base Excess Sodium 138 Potassium 4.0 Chloride 94 L Carbon Dioxide 39 H Anion Gap 9 L BUN 10 Creatinine 0.63 Estim Creat Clear Calc 126.5 Estimated GFR > 60 Random Glucose 113 Lactic Acid Calcium 9.0 B-Natriuretic Peptide Influenza Type A (PCR) NEGATIVE Influenza Type B (PCR) NEGATIVE RSV RNA Qual (PCR) NEGATIVE SARS-CoV-2 RNA (RT-PCR) NEGATIVE 04/05/22 04/05/22 04/05/22 16:09 16:13 17:34 WBC RBC Hgb Hct MCV MCH MCHC RDW Plt Count MPV Immature Gran % (Auto) Neut % (Auto) Lymph % (Auto) Irwin % (Auto) Eos % (Auto) Baso % (Auto) Lymph # (Auto) Irwin # (Auto) Eos # (Auto) Baso # (Auto) Abs Immat Gran (auto) Absolute Neuts (auto) Absolute Nucleated RBC Nucleated RBC % (auto) Smear Tech's Comments VBG pH 7.41 VBG pCO2 63 VBG pO2 53 VBG HCO3 40 H VBG O2 Saturation 80.0 VBG Base Excess 13.2 Sodium Potassium Chloride Carbon Dioxide Anion Gap BUN Creatinine Estim Creat Clear Calc Estimated GFR Random Glucose Lactic Acid 0.9 Calcium B-Natriuretic Peptide 151 H Influenza Type A (PCR) Influenza Type B (PCR) RSV RNA Qual (PCR) SARS-CoV-2 RNA (RT-PCR) 04/06/22 05:44 WBC 11.8 H RBC 5.81 H Hgb 11.6 L Hct 44.0 MCV 75.7 L MCH 20.0 L MCHC 26.4 L RDW 20.2 H Plt Count 301 MPV 10.6 Immature Gran % (Auto) Neut % (Auto) Lymph % (Auto) Irwin % (Auto) Eos % (Auto) Baso % (Auto) Lymph # (Auto) Irwin # (Auto) Eos # (Auto) Baso # (Auto) Abs Immat Gran (auto) Absolute Neuts (auto) Absolute Nucleated RBC 0.000 Nucleated RBC % (auto) 0.0 Smear Tech's Comments VBG pH VBG pCO2 VBG pO2 VBG HCO3 VBG O2 Saturation VBG Base Excess Sodium Potassium Chloride Carbon Dioxide Anion Gap BUN Creatinine Estim Creat Clear Calc Estimated GFR Random Glucose Lactic Acid Calcium B-Natriuretic Peptide Influenza Type A (PCR) Influenza Type B (PCR) RSV RNA Qual (PCR) SARS-CoV-2 RNA (RT-PCR) Discharge Plan Discharge Anticipated Discharge Date/Time: 04/06/22 09:55 Patient Disposition: Home, Self-Care Discharge Diagnosis: Pneumonia Referrals: [facility] [Primary Care Provider] - 1 Week Discharge Medications: New levofloxacin 750 mg Tablet 750 mg PO Q24H Qty: 4 0RF Continued ipratropium-albuterol 0.5 mg-3 mg(2.5 mg base)/3 mL solution for nebulization 3 ml inhalation TID Qty: 270 6RF budesonide 0.5 mg/2 mL suspension for nebulization 1 amp inhalation BID white petrolatum 42 % ointment 1 ea topical BID PRN (Reason: Dry Skin) baclofen 10 mg tablet 1 tab PO BEDTIME PRN (Reason: muscle spasm) econazole 1 % cream 1 appl topical DAILY cetirizine 10 mg tablet 10 mg PO DAILY fluoxetine 20 mg capsule 20 mg PO DAILY naproxen 500 mg tablet 500 mg PO BID PRN (Reason: pain) trazodone 50 mg tablet 100 mg PO BEDTIME PRN (Reason: Insomnia) sennosides [senna] 8.6 mg tablet 2 tab PO BEDTIME PRN (Reason: constipation) albuterol sulfate 2.5 mg /3 mL (0.083 %) solution for nebulization 1 amp inhalation Q4H PRN (Reason: Shortness Of Breath) polyvinyl alcohol 1.4 % drops 1 drp ophthalmic (eye) BID PRN (Reason: dry eyes) docusate sodium 100 mg capsule 1 cap PO BID PRN (Reason: Constipation) fluticasone propionate 50 mcg/actuation spray,suspension 2 spray intranasal DAILY lamotrigine 100 mg tablet 100 mg PO DAILY furosemide 20 mg tablet 40 mg PO DAILY albuterol sulfate [Ventolin HFA] 90 mcg/actuation HFA aerosol inhaler 2 puff inhalation Q4H PRN (Reason: shortness of breath or wheezing) arformoterol [Brovana] 15 mcg/2 mL solution for nebulization 2 ml inhalation BID 30 Days Qty: 120 6RF Discharge Orders: Discharge Order (Routine); Ordered 04/06/22 Ordered By: Familia Aguilar Diet: Advance to usual diet Activity on Discharge: As tolerated Stand Alone Forms: Patient Portal Discharge page Care Plan Goals: Full recovery from pneumonia Health Concerns: Pneumonia, obesity Plan of Treatment: Take Levaquin as directed and follow up with your doctor in a week, call for appointment. Assessment: As above
--- NOTE | 2022-04-06 10:17 | MHC.CM.PN ---
HOME - SELF CARE MOTHER (IN ROOM) TO PROVIDE TRANSPORT
[2022-04-06] MEDS: levoFLOXacin 750 MG TABLET PO (10:20)
== END 2022-04-06 10:55 | disposition home or self-care (01) | DRG 139 ==
LOC: HO.ED 17:33 → HO.EDOVER 20:27 → HO.S3 21:01
PROVIDERS: Admitting Provider Internal Medicine; Emergency Provider Emergency Medicine; PCP Family Medicine; Visit Provider Internal Medicine
DX: J18.9 Pneumonia, unspecified organism (principal); E66.2 Morbid (severe) obesity with alveolar hypoventilation; Z99.81 Dependence on supplemental oxygen; Z68.42 Body mass index [BMI] 45.0-49.9, adult; J45.20 Mild intermittent asthma, uncomplicated; F79 Unspecified intellectual disabilities; G47.30 Sleep apnea, unspecified; Z20.822 Contact with and (suspected) exposure to COVID-19; Z79.51 Long term (current) use of inhaled steroids; Z79.899 Other long term (current) drug therapy
CPT/HCPCS: 0241U; 36415; 71045; 80048; 82803; 83605; 83880; 85025; 85027; 87040; 93005; 94640; 99285; J0456; J0696; J1650

== ENCOUNTER → 2022-04-11 09:51 | Outpatient (BNVA) | payer MEDICAID, SELFPAY | PROVIDERS: PCP Family Medicine; Visit Provider Internal Medicine Pulmonary Disease | DX: J45.909 Unspecified asthma, uncomplicated (principal); R06.00 Dyspnea, unspecified; G47.33 Obstructive sleep apnea (adult) (pediatric); Z99.81 Dependence on supplemental oxygen | CPT/HCPCS: 94618; 99211; 99212 ==

== ENCOUNTER 2022-06-01 14:01 | Outpatient (REF) | payer MEDICAID, SELFPAY | END 2022-06-01 14:02 | disposition home or self-care (01) | LOC: HO.SH 14:01 | PROVIDERS: Visit Provider Family Medicine | DX: Z01.118 Encounter for examination of ears and hearing with other abnormal findings (principal); H90.41 Sensorineural hearing loss, unilateral, right ear, with unrestricted hearing on the contralateral side; H69.91 Unspecified Eustachian tube disorder, right ear | CPT/HCPCS: 92557; 92567; 92588 ==

== ENCOUNTER → 2022-06-15 10:48 | Outpatient (BNVA) | payer MEDICAID, SELFPAY | PROVIDERS: PCP Family Medicine; Visit Provider Internal Medicine Pulmonary Disease | DX: J45.909 Unspecified asthma, uncomplicated (principal); G47.33 Obstructive sleep apnea (adult) (pediatric); Z99.81 Dependence on supplemental oxygen | CPT/HCPCS: 99212 ==

== ENCOUNTER 2022-07-03 11:23 | Inpatient (IN) | payer MEDICAID, SELFPAY ==
--- NOTE | ~2022-07-03 | CT_ITS ---
EXAMINATION: CT ANGIOGRAM OF THE CHEST WITH AND WITHOUT CONTRAST (CT PULMONARY ANGIOGRAM FOR PE) CLINICAL INFORMATION: Reason for Exam hypoxia, elevated d dimer COMPARISON: None available. TECHNIQUE: Prior to contrast administration, noncontrast localization images were obtained. Subsequently, multidetector volumetric imaging was performed from the thoracic inlet to below the diaphragms following the administration of 80 mL Omnipaque 350 intravenous contrast. No contrast reaction reported Sagittal, coronal, and MIP oblique sagittal reformatted images were obtained on the CT workstation, uploaded to PACS, and reviewed. This CT examination was performed using dose optimization techniques as appropriate, variously including the following: *Automated exposure control *Adjustment of mA and/or kV according to patient size (this includes techniques or standardized protocols for targeted exams where dose is matched to indication/reason for exam; i.e. extremities or head) *Use of iterative reconstruction technique Total exam dose-length product 467 mGy-cm FINDINGS: The entire chest is not included in the [id number]. Bilateral lateral chest lowe are excluded. QUALITY OF STUDY/CONTRAST BOLUS: Satisfactory. PULMONARY ARTERIES: No central or segmental pulmonary emboli. THORACIC AORTA: No aneurysm or dissection. The aorta is ectatic likely due to scoliosis. LUNG: No focal consolidation, nodules or masses. PLEURA: No pleural effusion or pneumothorax. MEDIASTINUM: Normal heart size. No pericardial effusion. No hilar or mediastinal lymphadenopathy. No evidence of septal bowing or right heart strain. CORONARY ARTERY CALCIFICATION: None visualized on this study. CHEST WALL/AXILLA: Is a 1.4 cm left axillary lymph node, nonspecific. Visualized right axilla is unremarkable. OSSEOUS STRUCTURES: There is rotoscoliosis of dorsal spine stabilized by 2 long Aguayo rods extending from the upper to lower dorsal spine. There is no rib abnormality or fracture seen. No vertebral body fractures seen either. UPPER ABDOMEN: There is a rim calcified large gallstone No reflux of contrast into the hepatic veins to suggest elevated right heart pressures. CT/CT angio chest PE protocol IMPRESSION: 1. No evidence of PE. 2. No evidence of aortic dissection or aneurysm. 3. The lungs are clear. 4. Cholelithiasis without wall thickening VTE: negative
--- NOTE | ~2022-07-03 | XR_ITS ---
EXAMINATION: XR CHEST CLINICAL INFORMATION: Shortness of breath COMPARISON: Chest radiographs 04/05/2022, 03/23/2022, 01/11/2022 TECHNIQUE: Portable upright AP view of the chest was obtained. FINDINGS: There are low lung volumes. No pneumothorax, pleural reaction, or effusion. The vascularity is normal. There is no lobar or segmental airspace consolidation or definite groundglass opacity. Chronic and mildly enlarged cardiopericardial silhouette is stable. The hilar and mediastinal contours are unremarkable. No acute bony abnormality. Prior rodding thoracolumbar spine. XR/XR chest 1V IMPRESSION: Low lung volumes. No acute intrathoracic disease.
--- NOTE | ~2022-07-03 | US_ITS ---
EXAMINATION: US VENOUS ULTRASOUND WITH DOPPLER LOWER EXTREMITY, RIGHT CLINICAL INFORMATION: Right lower extremity swelling and tenderness. COMPARISON: None available. TECHNIQUE: Ultrasound of the deep veins is performed from the hip to the calf with compression sonography and color and pulse Doppler assessment. Spectral analysis with color-flow imaging is performed. FINDINGS: There is normal venous compression and respiratory variation and augmented flow. The visualized common femoral vein, superficial femoral vein, profunda femoral vein, popliteal vein, and the trifurcation region shows no evidence of deep venous thrombosis. No Roberts's cyst is seen. US/US venous duplex LE RT IMPRESSION: No evidence of right lower extremity deep venous thrombosis.
[2022-07-03 11:26] VITALS: BP 122/77; PULSE 92; RESP 20; TEMP 36.8; O2SAT 98; BMI 45.3
--- NOTE | 2022-07-03 11:31 | ECG_ITS ---
Test Reason : sob Blood Pressure : / mmHG Vent. Rate : 094 BPM Atrial Rate : 094 BPM P-R Int : 110 ms QRS Dur : 092 ms QT Int : 334 ms P-R-T Axes : 052 111 -08 degrees QTc Int : 417 ms Sinus rhythm with short [place] Right axis deviation Nonspecific T wave abnormality Abnormal ECG When compared with ECG of 05-APR-2022 15:59, Nonspecific T wave abnormality now evident in Lateral leads Referred By: Francesco Tao Electronically Signed By:GERTRUDE MICHAELS
--- NOTE | 2022-07-03 11:32 | ED_ITS ---
HPI - Asthma General Chief Complaint: Asthma <STEPHIE Meier - Last Filed: 07/16/22 12:55> Stated Complaint: low 02 diff breathing <STEPHIE Meier Last Filed: 07/16/22 12:55> Time Seen by Provider: 07/03/22 12:19 <STEPHIE Meier Last Filed: 07/16/22 12:55> Source: patient <STEPHIE Bartlett Last Filed: 07/03/22 16:57> Mode of arrival: ambulatory <STEPHIE Bartlett Last Filed: 07/03/22 16:57> Limitations: no limitations <STEPHIE Bartlett Last Filed: 07/03/22 16:57> History of Present Illness HPI Narrative: 47-year-old Hebrew speaking female with a history of intellectual disability, chronic hypoxic respiratory failure on 2 L nasal cannula at baseline, moderate to severe persistent asthma, morbid obesity, GEORGE who presents to the ER for evaluation of increased lethargy, SOB, subjective fevers and not feeling well. Patient's family member helps provide history. She states that the patient has been sleeping 4-5 hours per day. She has been complaining to her family about worsening SOB with exertion. Home pulse oximeter showed a pulse oximetry showed a reading of 59% on her baseline O2. Family reports she has had increasing LE edema for the last couple of weeks. She was started on torsemide a few months ago with no improvement. <STEPHIE Bartlett Last Filed: 07/03/22 16:57> MD complaint: shortness of breath <STEPHIE Bartlett Last Filed: 07/03/22 16:57> Onset (ago): day(s) <STEPHIE Bartlett Last Filed: 07/03/22 16:57> Severity: moderate <STEPHIE Bartlett Last Filed: 07/03/22 16:57> Associated symptoms: dry cough and fever <STEPHIE Bartlett Last Filed: 07/03/22 16:57> Asthma History: history of frequent attacks and history of prior ED visit <STEPHIE Bartlett Last Filed: 07/03/22 16:57> Treatments Prior to Arrival: oxygen <STEPHIE Bartlett Last Filed: 07/03/22 16:57> Related Data Home Medications: Home Medications Medication Instructions Recorded Confirmed baclofen 10 mg tablet 0.5 - 1 tab PO BEDTIME PRN muscle 10/27/21 07/03/22 spasm econazole 1 % topical cream 1 appl topical BID 10/27/21 07/03/22 white petrolatum 42 % topical 1 ea topical BID PRN Dry Skin 10/27/21 07/03/22 ointment cetirizine 10 mg tablet 10 mg PO DAILY 01/18/22 07/03/22 fluoxetine 20 mg capsule 20 mg PO DAILY 01/18/22 07/03/22 naproxen 500 mg tablet 500 mg PO BID PRN pain 01/18/22 07/03/22 trazodone 50 mg tablet 100 mg PO BEDTIME PRN Insomnia 01/18/22 07/03/22 albuterol sulfate 2.5 mg/3 mL 1 amp inhalation Q4H PRN Shortness 04/05/22 07/03/22 (0.083 %) solution for nebulization Of Breath albuterol sulfate 90 mcg/actuation 2 puff inhalation Q4H PRN 04/05/22 07/03/22 aerosol inhaler (Ventolin HFA) shortness of breath or wheezing docusate sodium 100 mg capsule 1 cap PO BID PRN Constipation 04/05/22 07/03/22 fluticasone propionate 50 2 spray intranasal DAILY 04/05/22 07/03/22 mcg/actuation nasal spray,suspension lamotrigine 100 mg tablet 100 mg PO DAILY 04/05/22 07/03/22 sennosides 8.6 mg tablet (senna) 2 tab PO BEDTIME PRN constipation 04/05/22 07/03/22 arformoterol 15 mcg/2 mL solution 2 ml inhalation BID 07/03/22 07/03/22 for nebulization (Brovana) aripiprazole 5 mg tablet 5 mg PO DAILY 07/03/22 07/03/22 fluticasone propionate 230 2 puff inhalation BID 07/03/22 07/03/22 mcg-salmeterol 21 mcg/actuation HFA inhaler (Advair HFA) Previous Rx's Medication Instructions Recorded ipratropium 0.5 mg-albuterol 3 mg 3 ml inhalation TID #270 mL 12/19/21 (2.5 mg base)/3 mL nebulization soln torsemide 20 mg tablet 20 mg PO DAILY 30 days #30 tabs 04/11/22 doxycycline hyclate 100 mg tablet 100 mg PO BID #8 tabs 07/05/22 <STEPHIE Meier - Last Filed: 07/16/22 12:55> Allergies/Adverse Reactions: Allergies Allergy/AdvReac Type Severity Reaction Status Date / Time No Known Allergies Allergy Unknown Verified 04/11/22 13:24 [No Known Allergies*] <STEPHIE Meier - Last Filed: 07/16/22 12:55> Review of Systems Review of Systems: Yes all other systems are reviewed and are negative <STEPHIE Bartlett - Last Filed: 07/03/22 16:57> [facility] Past Medical History Medical History: Medical History Asthma Intellectual disability Intellectual disability Morbid obesity GEORGE (obstructive sleep apnea) Oxygen desaturation during sleep Sleep apnea Status post repair of fracture of orbit <STEPHIE Meier - Last Filed: 07/16/22 12:55> Surgical History: Surgical History History of esophagogastroduodenoscopy (EGD) History of open reduction and internal fixation (ORIF) procedure Status post spinal surgery <STEPHIE Meier - Last Filed: 07/16/22 12:55> Family History Family History: Family History Mother Diabetes Hypertension Father Hypertension <STEPHIE Meier - Last Filed: 07/16/22 12:55> Social History Social History: Social History Household Members: Family Housing: House Do you presently have visiting nurse or other home services: Yes Alcohol intake: never Patient Tobacco Use Status: Never used Tobacco Smoked in Last 30 Days: No Use of substances other than those prescribed or required for medical reasons: No Advance Directives: No Advance Directives Information Provided: Yes service: No Current occupational status: disabled <STEPHIE Meier - Last Filed: 07/16/22 12:55> Physical Exam Vital Signs: Vital Signs: Last Vital Signs Temp 98.0 F 07/05/22 11:05 Pulse 100 07/05/22 11:44 Resp 18 07/05/22 11:44 BP 111/73 07/05/22 11:05 Pulse Ox 94 07/05/22 11:05 O2 Del Method Nasal Cannula 07/05/22 11:05 O2 Flow Rate 2 07/05/22 11:05 Oxygen Flow Rate 2 07/03/22 11:26 BMI result Body Mass Index 45.3 <STEPHIE Meier - Last Filed: 07/16/22 12:55> Vital Signs: Last Vital Signs Temp 98.0 F 07/05/22 11:05 Pulse 100 07/05/22 11:44 Resp 18 07/05/22 11:44 BP 111/73 07/05/22 11:05 Pulse Ox 94 07/05/22 11:05 O2 Del Method Nasal Cannula 07/05/22 11:05 O2 Flow Rate 2 07/05/22 11:05 Oxygen Flow Rate 2 07/03/22 11:26 BMI result Body Mass Index 45.3 <STEPHIE Bartlett - Last Filed: 07/03/22 16:57> Appearance: Alert. Oriented X3. No acute distress. Eyes: Pupils equal, round and reactive to light. ENT: Pharynx normal. Neck: Normal inspection. Neck supple. No JVD CVS: Normal heart rate and rhythm. Pulses normal. Respiratory: No respiratory distress. Breath sounds diminished throughout. No wheezing. Abdomen: Soft and nontender. +BS x4 Skin: Skin warm and dry. Normal skin color. Normal skin turgor. No rashes. Extremities: 2+ bilateral LE edema with right lower leg slightly larger than the right with overylying erythema, warmth and tenderness of the RLE. Neuro: Oriented X 3. Moves all extremities and follows commands, nonfocal. <STEPHEI Bartlett - Last Filed: 07/03/22 16:57> Course Course Course Narrative: RME: 47-year-old female with cognitive delays oxygen dependent due to asthma also history of CHF was brought in by mother for 1 episode of hypoxia in the 50s yesterday and patient felt cold while sleeping. States since then patient has been at her baseline mentally. Patient baseline on 2 L oxygen. O2 saturation 98% on 2 L which is her baseline. Positive for bilateral pedal edema. Negative for wheezing on exam. Patient in any distress. Labs, EKG, and chest x-ray ordered. <STEPHIE Meier - Last Filed: 07/16/22 12:55> Reevaluation(s) Reevaluation #1: patient desaturated into the 70s, placed on OxyMask with improvement. Encouarged CPAP for witnessed periods of apnea, however she adamantly refused put out 500cc clear urine with lasix. IV rocephin ordered for LE cellulitis. no evidence of severe sepsis. <STEPHIE Bartlett - Last Filed: 07/03/22 16:57> Medications Administered Discontinued Medications Generic Name Dose Route Start Last Admin Trade Name Freq PRN Reason Stop Dose Admin Acetaminophen 650 mg 07/03/22 17:09 07/04/22 00:06 Acetaminophen 325 Mg Tablet PO 650 mg Q6H PRN Administration Pain, Mild (Pain Scale 1-3) Aripiprazole 5 mg 07/04/22 09:00 07/05/22 08:15 Aripiprazole 5 Mg Tablet PO 5 mg DAILY REMA Administration Albuterol Sulfate 2.5 mg/ 0 mg 07/03/22 20:00 07/05/22 11:43 Ipratropium Fries 0.5 mg INHALE 2.5 each RQ4H WHILE AWAKE REMA Administration Fluticasone Propionate 2 spray 07/04/22 09:00 07/05/22 10:21 Fluticasone Propionate Nasal 16 Gm [place] NOSTRIL-B Not Given DAILY REMA Fluticasone/Vilanterol 1 puff 07/04/22 08:00 07/05/22 07:50 Fluticasone/Vilanterol 200/25 Blst.W.Dev INHALE 1 puff RDAILY REMA Administration Furosemide 40 mg 07/03/22 14:12 07/03/22 14:21 Furosemide 40 Mg/4 Ml Vial IVPUSH 07/03/22 14:13 40 mg STAT STA Administration Protocol Furosemide 40 mg 07/03/22 18:00 07/05/22 08:15 Furosemide 40 Mg/4 Ml Vial IVPUSH 40 mg BID@0900,1800 REMA Administration Protocol Heparin Sodium (Porcine) 5,000 unit 07/03/22 17:15 07/05/22 04:28 Heparin Sodium,Porcine 5,000 Unit/Ml Vial SUBCUT 5,000 unit Q12H REMA Administration Ceftriaxone Sodium 1 gm/ 50 mls @ 100 mls/hr 07/03/22 14:25 07/03/22 16:05 Sodium Chloride IV 07/03/22 14:54 Infused ONCE ONE Infusion Cefazolin Sodium 1 gm/ Sodium 50 mls @ 100 mls/hr 07/03/22 20:00 07/05/22 11:55 Chloride IV Infused Q8H REMA Infusion Iohexol 100 ml 07/03/22 20:00 07/03/22 20:00 Iohexol 350 Mg/Ml 100 Ml Infus..Btl IV 07/03/22 20:01 65 ml ONCE ONE Administration Lamotrigine 100 mg 07/04/22 09:00 07/05/22 08:15 Lamotrigine 100 Mg Tablet PO 100 mg DAILY REMA Administration Sodium Chloride 3 ml 07/04/22 00:00 07/05/22 08:15 0.9 % Sodium Chloride Flush 3 Ml Syringe IVFLUSH 3 ml QSHIFT REMA Administration <STEPHIE Meier - Last Filed: 07/16/22 12:55> Medications Administered Discontinued Medications Generic Name Dose Route Start Last Admin Trade Name Freq PRN Reason Stop Dose Admin Acetaminophen 650 mg 07/03/22 17:09 07/04/22 00:06 Acetaminophen 325 Mg Tablet PO 650 mg Q6H PRN Administration Pain, Mild (Pain Scale 1-3) Aripiprazole 5 mg 07/04/22 09:00 07/05/22 08:15 Aripiprazole 5 Mg Tablet PO 5 mg DAILY REMA Administration Albuterol Sulfate 2.5 mg/ 0 mg 07/03/22 20:00 07/05/22 11:43 Ipratropium Fries 0.5 mg INHALE 2.5 each RQ4H WHILE AWAKE REMA Administration Fluticasone Propionate 2 spray 07/04/22 09:00 07/05/22 10:21 Fluticasone Propionate Nasal 16 Gm [place] NOSTRIL-B Not Given DAILY REMA Fluticasone/Vilanterol 1 puff 07/04/22 08:00 07/05/22 07:50 Fluticasone/Vilanterol 200/25 Blst.W.Dev INHALE 1 puff RDAILY REMA Administration Furosemide 40 mg 07/03/22 14:12 07/03/22 14:21 Furosemide 40 Mg/4 Ml Vial IVPUSH 07/03/22 14:13 40 mg STAT STA Administration Protocol Furosemide 40 mg 07/03/22 18:00 07/05/22 08:15 Furosemide 40 Mg/4 Ml Vial IVPUSH 40 mg BID@0900,1800 REMA Administration Protocol Heparin Sodium (Porcine) 5,000 unit 07/03/22 17:15 07/05/22 04:28 Heparin Sodium,Porcine 5,000 Unit/Ml Vial SUBCUT 5,000 unit Q12H REMA Administration Ceftriaxone Sodium 1 gm/ 50 mls @ 100 mls/hr 07/03/22 14:25 07/03/22 16:05 Sodium Chloride IV 07/03/22 14:54 Infused ONCE ONE Infusion Cefazolin Sodium 1 gm/ Sodium 50 mls @ 100 mls/hr 07/03/22 20:00 07/05/22 11:55 Chloride IV Infused Q8H REMA Infusion Iohexol 100 ml 07/03/22 20:00 07/03/22 20:00 Iohexol 350 Mg/Ml 100 Ml Infus..Btl IV 07/03/22 20:01 65 ml ONCE ONE Administration Lamotrigine 100 mg 07/04/22 09:00 07/05/22 08:15 Lamotrigine 100 Mg Tablet PO 100 mg DAILY REMA Administration Sodium Chloride 3 ml 07/04/22 00:00 07/05/22 08:15 0.9 % Sodium Chloride Flush 3 Ml Syringe IVFLUSH 3 ml QSHIFT REMA Administration <STEPHIE Bartlett - Last Filed: 07/03/22 16:57> Medical Decision Making Medical Decision Making MDM Narrative: 47-year-old female with a history of intellectual disability, GEORGE not on CPAP, moderate to severe persistent asthma on chronic oxygen, history of pneumonia, obesity who presents to the ER for evaluation of increasing shortness of breath, BELTRAN, lethargy, hypoxic and at home. On arrival to the ER she is saturating well on her baseline O2. She is not wheezy. Low suspicion for asthma exacerbation. She does have pitting lower extremity edema and evidence of right lower extremity cellulitis. Lower extremity Doppler did not show any e vidence of a blood clot. hypoxic in the ER with pitting LE edema. given lasix and IV rocephin for LE cellulitis. will plan for admission. <STEPHIE Bartlett - Last Filed: 07/03/22 16:57> Differential Diagnosis Differential Diagnoses: The differential diagnosis associated with the presentation includes <STEPHIE Bartlett - Last Filed: 07/03/22 16:57> Acute asthma exacerbation, acute CHF exacerbation (? Underlying undiagnosed CHF, no echo on file here), acute on chronic hypercapnic, hypoxic respiratory failure, pneumonia, bronchitis, viral syndrome, COVID, flu, right lower extremity cellulitis, less likely acute DVT <STEPHIE Bartlett - Last Filed: 07/03/22 16:57> Admission/Observation Consideration of admission/observation: Escalation of care including admission/observation considered <STEPHIE Bartlett - Last Filed: 07/03/22 16:57> Consult Healthcare Provider Management of the patient was discussed with: Hospitalist <STEPHIE Bartlett - Last Filed: 07/03/22 16:57> hospitalist TT for admission <STEPHIE Bartlett - Last Filed: 07/03/22 16:57> Lab Data MDM Lab Attestation statement: I reviewed the patient's lab results. <STEPHIE Bartlett - Last Filed: 07/03/22 16:57> BNP 635, prior levels were 150-160 at the end of Mar 30. <STEPHIE Bartlett - Last Filed: 07/03/22 16:57> Result Diagrams: 07/03/22 11:55 07/03/22 11:55 <STEPHIE Meier - Last Filed: 07/16/22 12:55> Labs: Lab Results 07/03/22 07/03/22 07/03/22 Range/Units 11:55 11:55 11:55 WBC 7.8 (4.8-10.8) X10*3/uL RBC 6.31 H (4.20-5.50) X10*6/uL Hgb 11.5 L (12.0-16.0) g/dl Hct 44.3 (37.0-47.0) % MCV 70.2 L (80.0-98.0) fL MCH 18.2 L (27.0-33.0) pg MCHC 26.0 L (31.0-35.0) g/dl RDW 21.8 H (11.0-16.0) % Plt Count 230 (160-400) X10*3/uL MPV Not Reportable Immature Gran % (Auto) 0.3 (0.0-0.4) % Neut % (Auto) 73.5 H (45-73) % Lymph % (Auto) 14.0 L (20-40) % [place] % (Auto) 7.3 (2-11) % Eos % (Auto) 4.4 H (0-4) % Baso % (Auto) 0.5 (0-2) % Lymph # (Auto) 1.1 L (1.2-4.9) X10*3/uL [place] # (Auto) 0.6 (0.1-1.2) X10*3/uL Eos # (Auto) 0.3 (0.0-0.4) X10*3/uL Baso # (Auto) 0.0 (0.0-0.2) X10*3/uL Abs Immat Gran (auto) 0.02 (0.00-0.03) X10*3/uL Absolute Neuts (auto) 5.7 (2.0-8.3) x10*3/uL Absolute Nucleated RBC 0.000 (0.0-0.012) X10*3/uL Nucleated RBC % (auto) 0.0 (0.0-0.2) /100WBC Smear Tech's Comments VERIFIED PT 15.8 H (10.0-13.1) SEC INR 1.4 H (0.9-1.1) APTT 32.3 (26.0-36.4) SEC VBG pH (7.32-7.43) VBG pCO2 mmHg VBG pO2 mmHg VBG HCO3 (22-26) mmol/L VBG O2 Saturation % VBG Base Excess mmol/L Sodium 139 (135-145) mmol/L Potassium 3.8 (3.3-5.1) mmol/L Chloride 93 L (96-108) mmol/L Carbon Dioxide 37 H (22-29) mmol/L Anion Gap 13 (12-20) BUN 20 H (9-16) mg/dL Creatinine 0.86 (0.5-1.4) mg/dL Estim Creat Clear Calc 95.8 Estimated GFR > 60 Random Glucose 117 H (60-115) mg/dL Lactic Acid (0.5-2.0) mmol/L Calcium 8.8 (8.4-10.2) mg/dL Total Bilirubin 1.2 H (0.0-1.0) mg/dL AST 30 (5-31) U/L ALT 30 (0-31) U/L Alkaline Phosphatase 79 (39-117) U/L Troponin I High Sens (<3.5-17.0) ng/L B-Natriuretic Peptide (<100) pg/mL Total Protein 6.3 L (6.5-8.0) g/dL Albumin 3.5 (3.5-5.0) g/dL Influenza Type A (PCR) (Negative) Influenza Type B (PCR) (Negative) RSV RNA Qual (PCR) (Negative) SARS-CoV-2 RNA (RT-PCR) (Negative) 07/03/22 07/03/22 07/03/22 Range/Units 11:55 11:55 11:55 WBC (4.8-10.8) X10*3/uL RBC (4.20-5.50) X10*6/uL Hgb (12.0-16.0) g/dl Hct (37.0-47.0) % MCV (80.0-98.0) fL MCH (27.0-33.0) pg MCHC (31.0-35.0) g/dl RDW (11.0-16.0) % Plt Count (160-400) X10*3/uL MPV Immature Gran % (Auto) (0.0-0.4) % Neut % (Auto) (45-73) % Lymph % (Auto) (20-40) % [place] % (Auto) (2-11) % Eos % (Auto) (0-4) % Baso % (Auto) (0-2) % Lymph # (Auto) (1.2-4.9) X10*3/uL [place] # (Auto) (0.1-1.2) X10*3/uL Eos # (Auto) (0.0-0.4) X10*3/uL Baso # (Auto) (0.0-0.2) X10*3/uL Abs Immat Gran (auto) (0.00-0.03) X10*3/uL Absolute Neuts (auto) (2.0-8.3) x10*3/uL Absolute Nucleated RBC (0.0-0.012) X10*3/uL Nucleated RBC % (auto) (0.0-0.2) /100WBC Smear Tech's Comments PT (10.0-13.1) SEC INR (0.9-1.1) APTT (26.0-36.4) SEC VBG pH (7.32-7.43) VBG pCO2 mmHg VBG pO2 mmHg VBG HCO3 (22-26) mmol/L VBG O2 Saturation % VBG Base Excess mmol/L Sodium (135-145) mmol/L Potassium (3.3-5.1) mmol/L Chloride (96-108) mmol/L Carbon Dioxide (22-29) mmol/L Anion Gap (12-20) BUN (9-16) mg/dL Creatinine (0.5-1.4) mg/dL Estim Creat Clear Calc Estimated GFR Random Glucose (60-115) mg/dL Lactic Acid (0.5-2.0) mmol/L Calcium (8.4-10.2) mg/dL Total Bilirubin (0.0-1.0) mg/dL AST (5-31) U/L ALT (0-31) U/L Alkaline Phosphatase (39-117) U/L Troponin I High Sens < 3.5 (<3.5-17.0) ng/L B-Natriuretic Peptide 635 H (<100) pg/mL Total Protein (6.5-8.0) g/dL Albumin (3.5-5.0) g/dL Influenza Type A (PCR) NEGATIVE (Negative) Influenza Type B (PCR) NEGATIVE (Negative) RSV RNA Qual (PCR) NEGATIVE (Negative) SARS-CoV-2 RNA (RT-PCR) NEGATIVE (Negative) 07/03/22 07/03/22 Range/Units 14:42 14:45 WBC (4.8-10.8) X10*3/uL RBC (4.20-5.50) X10*6/uL Hgb (12.0-16.0) g/dl Hct (37.0-47.0) % MCV (80.0-98.0) fL MCH (27.0-33.0) pg MCHC (31.0-35.0) g/dl RDW (11.0-16.0) % Plt Count (160-400) X10*3/uL MPV Immature Gran % (Auto) (0.0-0.4) % Neut % (Auto) (45-73) % Lymph % (Auto) (20-40) % [place] % (Auto) (2-11) % Eos % (Auto) (0-4) % Baso % (Auto) (0-2) % Lymph # (Auto) (1.2-4.9) X10*3/uL [place] # (Auto) (0.1-1.2) X10*3/uL Eos # (Auto) (0.0-0.4) X10*3/uL Baso # (Auto) (0.0-0.2) X10*3/uL Abs Immat Gran (auto) (0.00-0.03) X10*3/uL Absolute Neuts (auto) (2.0-8.3) x10*3/uL Absolute Nucleated RBC (0.0-0.012) X10*3/uL Nucleated RBC % (auto) (0.0-0.2) /100WBC Smear Tech's Comments PT (10.0-13.1) SEC INR (0.9-1.1) APTT (26.0-36.4) SEC VBG pH 7.39 (7.32-7.43) VBG pCO2 76 mmHg VBG pO2 49 mmHg VBG HCO3 47 H (22-26) mmol/L VBG O2 Saturation 62.0 % VBG Base Excess 17.2 mmol/L Sodium (135-145) mmol/L Potassium (3.3-5.1) mmol/L Chloride (96-108) mmol/L Carbon Dioxide (22-29) mmol/L Anion Gap (12-20) BUN (9-16) mg/dL Creatinine (0.5-1.4) mg/dL Estim Creat Clear Calc Estimated GFR Random Glucose (60-115) mg/dL Lactic Acid 1.0 (0.5-2.0) mmol/L Calcium (8.4-10.2) mg/dL Total Bilirubin (0.0-1.0) mg/dL AST (5-31) U/L ALT (0-31) U/L Alkaline Phosphatase (39-117) U/L Troponin I High Sens (<3.5-17.0) ng/L B-Natriuretic Peptide (<100) pg/mL Total Protein (6.5-8.0) g/dL Albumin (3.5-5.0) g/dL Influenza Type A (PCR) (Negative) Influenza Type B (PCR) (Negative) RSV RNA Qual (PCR) (Negative) SARS-CoV-2 RNA (RT-PCR) (Negative) <STEPHIE Meier - Last Filed: 07/16/22 12:55> Lab Results 07/03/22 07/03/22 07/03/22 Range/Units 11:55 11:55 11:55 WBC 7.8 (4.8-10.8) X10*3/uL RBC 6.31 H (4.20-5.50) X10*6/uL Hgb 11.5 L (12.0-16.0) g/dl Hct 44.3 (37.0-47.0) % MCV 70.2 L (80.0-98.0) fL MCH 18.2 L (27.0-33.0) pg MCHC 26.0 L (31.0-35.0) g/dl RDW 21.8 H (11.0-16.0) % Plt Count 230 (160-400) X10*3/uL MPV Not Reportable Immature Gran % (Auto) 0.3 (0.0-0.4) % Neut % (Auto) 73.5 H (45-73) % Lymph % (Auto) 14.0 L (20-40) % [place] % (Auto) 7.3 (2-11) % Eos % (Auto) 4.4 H (0-4) % Baso % (Auto) 0.5 (0-2) % Lymph # (Auto) 1.1 L (1.2-4.9) X10*3/uL [place] # (Auto) 0.6 (0.1-1.2) X10*3/uL Eos # (Auto) 0.3 (0.0-0.4) X10*3/uL Baso # (Auto) 0.0 (0.0-0.2) X10*3/uL Abs Immat Gran (auto) 0.02 (0.00-0.03) X10*3/uL Absolute Neuts (auto) 5.7 (2.0-8.3) x10*3/uL Absolute Nucleated RBC 0.000 (0.0-0.012) X10*3/uL Nucleated RBC % (auto) 0.0 (0.0-0.2) /100WBC Smear Tech's Comments VERIFIED PT 15.8 H (10.0-13.1) SEC INR 1.4 H (0.9-1.1) APTT 32.3 (26.0-36.4) SEC VBG pH (7.32-7.43) VBG pCO2 mmHg VBG pO2 mmHg VBG HCO3 (22-26) mmol/L VBG O2 Saturation % VBG Base Excess mmol/L Sodium 139 (135-145) mmol/L Potassium 3.8 (3.3-5.1) mmol/L Chloride 93 L (96-108) mmol/L Carbon Dioxide 37 H (22-29) mmol/L Anion Gap 13 (12-20) BUN 20 H (9-16) mg/dL Creatinine 0.86 (0.5-1.4) mg/dL Estim Creat Clear Calc 95.8 Estimated GFR > 60 Random Glucose 117 H (60-115) mg/dL Lactic Acid (0.5-2.0) mmol/L Calcium 8.8 (8.4-10.2) mg/dL Total Bilirubin 1.2 H (0.0-1.0) mg/dL AST 30 (5-31) U/L ALT 30 (0-31) U/L Alkaline Phosphatase 79 (39-117) U/L Troponin I High Sens (<3.5-17.0) ng/L B-Natriuretic Peptide (<100) pg/mL Total Protein 6.3 L (6.5-8.0) g/dL Albumin 3.5 (3.5-5.0) g/dL Influenza Type A (PCR) (Negative) Influenza Type B (PCR) (Negative) RSV RNA Qual (PCR) (Negative) SARS-CoV-2 RNA (RT-PCR) (Negative) 07/03/22 07/03/22 07/03/22 Range/Units 11:55 11:55 11:55 WBC (4.8-10.8) X10*3/uL RBC (4.20-5.50) X10*6/uL Hgb (12.0-16.0) g/dl Hct (37.0-47.0) % MCV (80.0-98.0) fL MCH (27.0-33.0) pg MCHC (31.0-35.0) g/dl RDW (11.0-16.0) % Plt Count (160-400) X10*3/uL MPV Immature Gran % (Auto) (0.0-0.4) % Neut % (Auto) (45-73) % Lymph % (Auto) (20-40) % [place] % (Auto) (2-11) % Eos % (Auto) (0-4) % Baso % (Auto) (0-2) % Lymph # (Auto) (1.2-4.9) X10*3/uL [place] # (Auto) (0.1-1.2) X10*3/uL Eos # (Auto) (0.0-0.4) X10*3/uL Baso # (Auto) (0.0-0.2) X10*3/uL Abs Immat Gran (auto) (0.00-0.03) X10*3/uL Absolute Neuts (auto) (2.0-8.3) x10*3/uL Absolute Nucleated RBC (0.0-0.012) X10*3/uL Nucleated RBC % (auto) (0.0-0.2) /100WBC Smear Tech's Comments PT (10.0-13.1) SEC INR (0.9-1.1) APTT (26.0-36.4) SEC VBG pH (7.32-7.43) VBG pCO2 mmHg VBG pO2 mmHg VBG HCO3 (22-26) mmol/L VBG O2 Saturation % VBG Base Excess mmol/L Sodium (135-145) mmol/L Potassium (3.3-5.1) mmol/L Chloride (96-108) mmol/L Carbon Dioxide (22-29) mmol/L Anion Gap (12-20) BUN (9-16) mg/dL Creatinine (0.5-1.4) mg/dL Estim Creat Clear Calc Estimated GFR Random Glucose (60-115) mg/dL Lactic Acid (0.5-2.0) mmol/L Calcium (8.4-10.2) mg/dL Total Bilirubin (0.0-1.0) mg/dL AST (5-31) U/L ALT (0-31) U/L Alkaline Phosphatase (39-117) U/L Troponin I High Sens < 3.5 (<3.5-17.0) ng/L B-Natriuretic Peptide 635 H (<100) pg/mL Total Protein (6.5-8.0) g/dL Albumin (3.5-5.0) g/dL Influenza Type A (PCR) NEGATIVE (Negative) Influenza Type B (PCR) NEGATIVE (Negative) RSV RNA Qual (PCR) NEGATIVE (Negative) SARS-CoV-2 RNA (RT-PCR) NEGATIVE (Negative) 07/03/22 07/03/22 Range/Units 14:42 14:45 WBC (4.8-10.8) X10*3/uL RBC (4.20-5.50) X10*6/uL Hgb (12.0-16.0) g/dl Hct (37.0-47.0) % MCV (80.0-98.0) fL MCH (27.0-33.0) pg MCHC (31.0-35.0) g/dl RDW (11.0-16.0) % Plt Count (160-400) X10*3/uL MPV Immature Gran % (Auto) (0.0-0.4) % Neut % (Auto) (45-73) % Lymph % (Auto) (20-40) % [place] % (Auto) (2-11) % Eos % (Auto) (0-4) % Baso % (Auto) (0-2) % Lymph # (Auto) (1.2-4.9) X10*3/uL [place] # (Auto) (0.1-1.2) X10*3/uL Eos # (Auto) (0.0-0.4) X10*3/uL Baso # (Auto) (0.0-0.2) X10*3/uL Abs Immat Gran (auto) (0.00-0.03) X10*3/uL Absolute Neuts (auto) (2.0-8.3) x10*3/uL Absolute Nucleated RBC (0.0-0.012) X10*3/uL Nucleated RBC % (auto) (0.0-0.2) /100WBC Smear Tech's Comments PT (10.0-13.1) SEC INR (0.9-1.1) APTT (26.0-36.4) SEC VBG pH 7.39 (7.32-7.43) VBG pCO2 76 mmHg VBG pO2 49 mmHg VBG HCO3 47 H (22-26) mmol/L VBG O2 Saturation 62.0 % VBG Base Excess 17.2 mmol/L Sodium (135-145) mmol/L Potassium (3.3-5.1) mmol/L Chloride (96-108) mmol/L Carbon Dioxide (22-29) mmol/L Anion Gap (12-20) BUN (9-16) mg/dL Creatinine (0.5-1.4) mg/dL Estim Creat Clear Calc Estimated GFR Random Glucose (60-115) mg/dL Lactic Acid 1.0 (0.5-2.0) mmol/L Calcium (8.4-10.2) mg/dL Total Bilirubin (0.0-1.0) mg/dL AST (5-31) U/L ALT (0-31) U/L Alkaline Phosphatase (39-117) U/L Troponin I High Sens (<3.5-17.0) ng/L B-Natriuretic Peptide (<100) pg/mL Total Protein (6.5-8.0) g/dL Albumin (3.5-5.0) g/dL Influenza Type A (PCR) (Negative) Influenza Type B (PCR) (Negative) RSV RNA Qual (PCR) (Negative) SARS-CoV-2 RNA (RT-PCR) (Negative) <STEPHIE Bartlett - Last Filed: 07/03/22 16:57> ABG Data Attestation ABG: I personally reviewed and interpreted this ABG as follows: <STEPHIE Bartlett Last Filed: 07/03/22 16:57> Interpretation: compensated respiratory acidosis <STEPHIE Bartlett Last Filed: 07/03/22 16:57> Independent Interpretation I performed an independent interpretation of an: EKG and Plain X-Ray <STEPHIE Bartlett Last Filed: 07/03/22 16:57> Interpretation: x-ray with rotation, cardiomegaly which is stable, increased vascularity but no overt edema or pleural effusions. ekg with sinus rhythm, HR 94 bpm, artifact present in leads I & III, nonspecific t wave abnormality, no ST segment elevations <STEPHIE Bartlett Last Filed: 07/03/22 16:57> Radiology Impression Discussion of test interpretation with radiology: I have reviewed the radiologist's reading. <STEPHIE Bartlett Last Filed: 07/03/22 16:57> Radiologist Impression: XR/XR chest 1V IMPRESSION: Low lung volumes. No acute intrathoracic disease. <STEPHIE Bartlett Last Filed: 07/03/22 16:57> Independent Historian Clinical information obtained from an independent historian. History obtained from or confirmed by: Parent <STEPHIE Bartlett Last Filed: 07/03/22 16:57> External Record Review External record reviewed: Inpatient record, Office record, Outpatient record, Prior outpatient labs and Prior outpatient radiology <STEPHIE Bartlett Last Filed: 07/03/22 16:57> Prescription Management I considered prescription management with: Antibiotic and Other (diruetics) <STEPHIE Bartlett Last Filed: 07/03/22 16:57> Chronic Conditions Patient?s care impacted by: Other (asthma, obesity) <STEPHIE Bartlett Last Filed: 07/03/22 16:57> Critical Care Time Critical Care Time Critical Care Time: Yes <STEPHIE Bartlett Last Filed: 07/03/22 16:57> Total Critical Care Time: 44 <STEPHIE Bartlett - Last Filed: 07/03/22 16:57> Attestation: I have personally provided critical care time exclusive of time spent on separately billable procedures. Time includes review of lab data, radiology results, discussion with consultants, and monitoring for potential decompensation. Intervention performed as documented. <STEPHIE Bartlett - Last Filed: 07/03/22 16:57> Discharge Plan Discharge Clinical Impression: Volume overload, Cellulitis of right leg <STEPHIE Meier - Last Filed: 07/16/22 12:55> Patient Disposition: Admitted As Inpatient <STEPHIE Meier - Last Filed: 07/16/22 12:55> Interventions: Admission Worksheet (ED) Last Done: 07/03/22 18:34 <STEPHIE Meier - Last Filed: 07/16/22 12:55> Discharge Date/Time: 07/03/22 18:55 <STEPHIE Meier - Last Filed: 07/16/22 12:55>
[2022-07-03 12:06] LABS: Basophils Percent Auto 0.5 % (0-2); Eosinophils Absolute Auto 0.3 X10*3/uL (0.0-0.4); Eosinophils Percent Auto 4.4 % (0-4); Hematocrit 44.3 % (37.0-47.0); Hemoglobin 11.5 g/dl (12.0-16.0); Imm Gran Abs Auto 0.02 X10*3/uL (0.00-0.03); Imm Gran Pct Auto 0.3 % (0.0-0.4); Lymphocytes Absolute Auto 1.1 X10*3/uL (1.2-4.9); MANUAL DIFF FLAG SCAN; Mean Corpuscular Hemoglobin 18.2 pg (27.0-33.0); Mean Corpuscular Volume 70.2 fL (80.0-98.0); Monocytes Absolute Auto 0.6 X10*3/uL (0.1-1.2); Monocytes Percent Auto 7.3 % (2-11); Neutrophils Absolute Auto 5.7 x10*3/uL (2.0-8.3); Neutrophils Percent Auto 73.5 % (45-73); PLT CLUMP 1; Red Blood Count 6.31 X10*6/uL (4.20-5.50); Red Cell Distribution Width 21.8 % (11.0-16.0); SCAN SMEAR FLAG 1
[2022-07-03 12:13] LABS: INTERNATIONAL NORM RATIO 1.4 (0.9-1.1); Prothrombin Time 15.8 SEC (10.0-13.1)
[2022-07-03 12:15] LABS: Partial Thromboplastin Time 32.3 SEC (26.0-36.4)
[2022-07-03 12:20] LABS: Alanine Aminotransferase 30 U/L (0-31); Albumin Level 3.5 g/dL (3.5-5.0); Alkaline Phosphatase 79 U/L (39-117); Anion Gap 13 (12-20); Aspartate Amino Transferase 30 U/L (5-31); Bilirubin Total 1.2 mg/dL (0.0-1.0); Blood Urea Nitrogen 20 mg/dL (9-16); Calcium 8.8 mg/dL (8.4-10.2); Carbon Dioxide 37 mmol/L (22-29); Chloride 93 mmol/L (96-108); Creatinine Clr Calc Pharmacy 95.8; Estimated Glomerular Filt Rate > 60; Glucose Random 117 mg/dL (60-115); Potassium 3.8 mmol/L (3.3-5.1); Sodium 139 mmol/L (135-145); Total Protein 6.3 g/dL (6.5-8.0)
[2022-07-03 12:25] LABS: B Type Natriuretic Peptide 635 pg/mL (<100)
[2022-07-03 12:28] LABS: Platelet Count 230 X10*3/uL (160-400); White Blood Count 7.8 X10*3/uL (4.8-10.8)
[2022-07-03 12:29] LABS: SLIDE REVIEW VERIFIED
[2022-07-03 12:30] LABS: Troponin-I High Sensitivity < 3.5 ng/L (<3.5-17.0)
[2022-07-03 12:55] LABS: Influenza A PCR NEGATIVE (Negative); Influenza B PCR NEGATIVE (Negative); Resp Syncy Virus RNA Qual PCR NEGATIVE (Negative); SARS COV2 PCR INHOUSE NEGATIVE (Negative)
[2022-07-03] MEDS: Furosemide 40 MG/4 ML VIAL IVPUSH (14:21)
[2022-07-03 14:56] LABS: Venous Blood Gas Refer to POC result
[2022-07-03 14:57] LABS: VBG Base Excess 17.2 mmol/L; VBG HCO3 47 mmol/L (22-26); VBG pCO2 76 mmHg; VBG pH 7.39 (7.32-7.43); VBG pO2 49 mmHg
[2022-07-03 15:20] VITALS: BP 107/69; PULSE 94; RESP 20; TEMP 37.1; O2SAT 95
[2022-07-03] MEDS: cefTRIAXone sodium 1 GM in 0.9 % Sodium Chloride 50 ML IV (15:25)
--- NOTE | 2022-07-03 15:27 | PHA.MEDREC ---
Pharmacy Consult ? Medication Reconciliation Pharmacy has completed the medication reconciliation. [employer] used, family member? at bedside. Pt uncoopertaive, family member unsure of what she takes at home. Used claim history to complete med rec
--- NOTE | 2022-07-03 15:55 | PC.NURSE ---
PT VOIDING POST LASIX ADMINISTRATION, ANTIBIOTICS INFUSING, SHE IS IN NO ACUTE RESP DIFFICULTY AT THIS TIME
[2022-07-03 16:57] VITALS: BP 108/71; PULSE 97; RESP 20; TEMP 37; O2SAT 97
--- NOTE | 2022-07-03 16:57 | P.HPHOSP_ITS ---
History of Present Illness Date of Service: 07/03/22 Chief Complaint: SOB 47 year old women presenting with increased shortness of breath, fever an generalized feeling of unwellness. Her mother is her primary caregiver. Apparently she has been sleeping excessively and reporting to her family shortness of breath on exertion. She is on 2 L nasal cannula at home and apparently her pulse oximetry was reading 59%. Her family also reported increased lower extremity edema over the last several weeks. She had been on torsemide for which she started a few months ago but that does not seem to be working. BNP noted to be mildly elevated 635, COVID, flu and RSV negative, chronically elevated pCO2, compensated VBG. Placed on OxyMask. Given IV Lasix, Rocephin for lower extremity cellulitis. Will admit for further management and treatment of acute on chronic respiratory failure secondary to congestive heart failure. Review of Systems Review of Systems: Yes Unobtainable due to mental status [facility] Medical History (Updated 07/04/22 @ 09:46 by Aldair Robles MD) Asthma Intellectual disability Oxygen desaturation during sleep Sleep apnea Status post repair of fracture of orbit Family History Mother Diabetes Hypertension Father Hypertension Surgical History History of esophagogastroduodenoscopy (EGD) History of open reduction and internal fixation (ORIF) procedure Status post spinal surgery Social History Household Members: Family Housing: House Do you presently have visiting nurse or other home services: Yes Patient Tobacco Use Status: Never used Tobacco Use of substances other than those prescribed or required for medical reasons: No Currently Displaying Signs/Symptoms of Drug Intoxication Withdrawal: No Have you been hit, kicked, punched, or otherwise hurt by someone within the past year? If so, by whom?: No Do you feel safe in your current relationship?: Yes Is there a partner from a previous relationship who is making you feel unsafe now?: No Are you made to feel afraid or neglected: No Advance Directives: No Advance Directives Information Provided: Yes Do you have thoughts of harming others: None Do you have a plan to hurt others: No Plan Recently lost weight without trying: No Nutrition Risks: No Nutritional Risk Patient : No : No Poor oral hygiene: No service: No Current occupational status: disabled [employer] Allergies Allergy/AdvReac Type Severity Reaction Status Date / Time No Known Allergies Allergy Unknown Verified 04/11/22 13:24 [No Known Allergies*] Active Medications: Current Medications Pharmacy Consult (Consult Rx Perform Med Rec) 1 each MISCELLANE ONCE PRN PRN Reason: Consult order Home Medications Medication Instructions Recorded Confirmed Last Taken Type baclofen 10 mg tablet 0.5 - 1 tab PO BEDTIME PRN muscle 10/27/21 07/03/22 Unknown History spasm econazole 1 % topical cream 1 appl topical BID 10/27/21 07/03/22 04/05/22 History white petrolatum 42 % topical 1 ea topical BID PRN Dry Skin 10/27/21 07/03/22 Unknown History ointment cetirizine 10 mg tablet 10 mg PO DAILY 01/18/22 07/03/22 04/05/22 History fluoxetine 20 mg capsule 20 mg PO DAILY 01/18/22 07/03/22 04/05/22 History naproxen 500 mg tablet 500 mg PO BID PRN pain 01/18/22 07/03/22 Unknown History trazodone 50 mg tablet 100 mg PO BEDTIME PRN Insomnia 01/18/22 07/03/22 Unknown History albuterol sulfate 2.5 mg/3 mL 1 amp inhalation Q4H PRN Shortness 04/05/22 07/03/22 Unknown History (0.083 %) solution for nebulization Of Breath albuterol sulfate 90 mcg/actuation 2 puff inhalation Q4H PRN 04/05/22 07/03/22 Unknown History aerosol inhaler (Ventolin HFA) shortness of breath or wheezing docusate sodium 100 mg capsule 1 cap PO BID PRN Constipation 04/05/22 07/03/22 Unknown History fluticasone propionate 50 2 spray intranasal DAILY 04/05/22 07/03/22 04/05/22 History mcg/actuation nasal spray,suspension lamotrigine 100 mg tablet 100 mg PO DAILY 04/05/22 07/03/22 04/05/22 History sennosides 8.6 mg tablet (senna) 2 tab PO BEDTIME PRN constipation 04/05/22 07/03/22 Unknown History arformoterol 15 mcg/2 mL solution 2 ml inhalation BID 07/03/22 07/03/22 Unknown History for nebulization (Marva) aripiprazole 5 mg tablet 5 mg PO DAILY 07/03/22 07/03/22 Unknown History fluticasone propionate 230 2 puff inhalation BID 07/03/22 07/03/22 Unknown History mcg-salmeterol 21 mcg/actuation HFA inhaler (Advair HFA) Physical Exam 2 Vital Signs and Narrative: Vital Signs: Last Vital Signs Temp 98.8 F 07/03/22 15:20 Pulse 94 07/03/22 15:20 Resp 20 07/03/22 15:20 BP 107/69 07/03/22 15:20 Pulse Ox 95 07/03/22 15:20 O2 Del Method Oxymask 07/03/22 15:20 O2 Flow Rate 2 07/03/22 15:20 Oxygen Flow Rate 2 07/03/22 11:26 BMI result Body Mass Index 45.3 Appearing in no acute distress head is normocephalic atraumatic eyes pupils are PERRLA sclera is anicteric mouth throat mucous membranes are intact and moist neck is supple no lymphadenopathy, no JVD noted lung sounds are clear to auscultation heart regular rate rhythm, clear S1, S2 positive bowel sounds, abdomen is soft, nontender neuro patient is alert x3, no focal deficits Results Labs 07/03/22 11:55 07/03/22 11:55 Labs: Laboratory Results - last 24 hr 07/03/22 07/03/22 07/03/22 11:55 11:55 11:55 MCV 70.2 L MCH 18.2 L MCHC 26.0 L RDW 21.8 H Plt Count 230 MPV Not Reportable Immature Gran % (Auto) 0.3 Neut % (Auto) 73.5 H Lymph % (Auto) 14.0 L Keith % (Auto) 7.3 Eos % (Auto) 4.4 H Baso % (Auto) 0.5 Lymph # (Auto) 1.1 L Keith # (Auto) 0.6 Eos # (Auto) 0.3 Baso # (Auto) 0.0 Abs Immat Gran (auto) 0.02 Absolute Neuts (auto) 5.7 Absolute Nucleated RBC 0.000 Nucleated RBC % (auto) 0.0 Smear Tech's Comments VERIFIED PT 15.8 H INR 1.4 H APTT 32.3 VBG pH VBG pCO2 VBG pO2 VBG HCO3 VBG O2 Saturation VBG Base Excess Anion Gap 13 Estim Creat Clear Calc 95.8 Estimated GFR > 60 Random Glucose 117 H Lactic Acid Calcium 8.8 Total Bilirubin 1.2 H AST 30 ALT 30 Alkaline Phosphatase 79 Troponin I High Sens B-Natriuretic Peptide Total Protein 6.3 L Albumin 3.5 Influenza Type A (PCR) Influenza Type B (PCR) RSV RNA Qual (PCR) SARS-CoV-2 RNA (RT-PCR) 07/03/22 07/03/22 07/03/22 11:55 11:55 11:55 MCV MCH MCHC RDW Plt Count MPV Immature Gran % (Auto) Neut % (Auto) Lymph % (Auto) Keith % (Auto) Eos % (Auto) Baso % (Auto) Lymph # (Auto) Keith # (Auto) Eos # (Auto) Baso # (Auto) Abs Immat Gran (auto) Absolute Neuts (auto) Absolute Nucleated RBC Nucleated RBC % (auto) Smear Tech's Comments PT INR APTT VBG pH VBG pCO2 VBG pO2 VBG HCO3 VBG O2 Saturation VBG Base Excess Anion Gap Estim Creat Clear Calc Estimated GFR Random Glucose Lactic Acid Calcium Total Bilirubin AST ALT Alkaline Phosphatase Troponin I High Sens < 3.5 B-Natriuretic Peptide 635 H Total Protein Albumin Influenza Type A (PCR) NEGATIVE Influenza Type B (PCR) NEGATIVE RSV RNA Qual (PCR) NEGATIVE SARS-CoV-2 RNA (RT-PCR) NEGATIVE 07/03/22 07/03/22 14:42 14:45 MCV MCH MCHC RDW Plt Count MPV Immature Gran % (Auto) Neut % (Auto) Lymph % (Auto) Keith % (Auto) Eos % (Auto) Baso % (Auto) Lymph # (Auto) Keith # (Auto) Eos # (Auto) Baso # (Auto) Abs Immat Gran (auto) Absolute Neuts (auto) Absolute Nucleated RBC Nucleated RBC % (auto) Smear Tech's Comments PT INR APTT VBG pH 7.39 VBG pCO2 76 VBG pO2 49 VBG HCO3 47 H VBG O2 Saturation 62.0 VBG Base Excess 17.2 Anion Gap Estim Creat Clear Calc Estimated GFR Random Glucose Lactic Acid 1.0 Calcium Total Bilirubin AST ALT Alkaline Phosphatase Troponin I High Sens B-Natriuretic Peptide Total Protein Albumin Influenza Type A (PCR) Influenza Type B (PCR) RSV RNA Qual (PCR) SARS-CoV-2 RNA (RT-PCR) Imaging Radiologist's Impressions: Impressions Chest X-Ray 07/03/22 12:55 IMPRESSION: Low lung volumes. No acute intrathoracic disease. Venous Duplex 07/03/22 15:00 IMPRESSION: No evidence of right lower extremity deep venous thrombosis. Assessment and Plan (1) Acute on chronic right heart failure: Status: Acute Plan 47 year old women admitted with CHF requiring IV diuretics HFpEF acute on chronic Lasix IV BID cardiology consult monitor on telemetry strict intake and output, daily weights Morbid obesity. BMI 45.4 Discussed importance of weight management as this may be contributing to worsening of other comorbidities Mental Health/intellectual disability Continue home medications Obstructive sleep apnea CPAP DVT prophylaxis Attending Dr. Durham Full code Patient requires 2 inpatient midnights for treatment of CHF requiring IV antibiotics Time Spent With Patient Time: Total time managing care of this patient today ____ minutes. Quality Stroke Does the patient have a stroke diagnosis?: No VTE Prior VTE?: No VTE Risk Level:: Medical - moderate - high VTE Device Contraindication: Treatment Not Indicated VTE Drug Contraindication: N/A - Med Ordered
--- NOTE | 2022-07-03 17:57 | PC.NURSE ---
REPORT GIVEN FOR ADMISSION TO [facility]
[2022-07-03 19:00] VITALS: BMI 45.6
[2022-07-03 19:01] VITALS: BP 105/61; PULSE 107; RESP 20; TEMP 36.7; O2SAT 91
--- NOTE | 2022-07-03 19:11 | PM.EVENT ---
Event Note Date of Service: 07/03/22 Event Note: Patient is getting admitted to the hospital because of progressive shortness of breath from almost 3 months duration, slowly progressing and also patient is getting up in the night to catch breath, as well as using 2 pillows also leg swelling present. Patient is on home torsemide small dose. In addition patient's mother says that? Unclear how much water she drinks and fluids. From the last Pulmonary note patient seems to have asthma, sleep apnea uses CPAP, seems like also oxygen dependent . This patient is seen and examined with APC. Lab imaging, EKG reviewed. CBC seems fine, BMP seems fine except bicarb is 37. ABG compensated pH. Chest x-ray, venous duplex, EKG seems fine. BNP elevated, leg edema, right leg erythema lower leg Physical exam and assessment and plan coordinated in APCs note, Agree with the plan in addition: Possible chf exacerbation: Etiology unclear, Troponin negative,denies any chest pain Monitor daily weights, I/o Echo, cardio consult, IV diuretics Right leg cellulitis: Continue IV antibiotics. Above management discussed with the patient and her mother at bedside. Time Spent With Patient Time: Total time managing care of this patient today ____ minutes.
[2022-07-03] MEDS: Heparin Sodium,Porcine 5,000 UNIT/ML VIAL 5000 UNIT SUBCUT (19:24)
[2022-07-03] MEDS: iohexoL 350 MG/ML 100 ML INFUS..BTL IV (20:00)
[2022-07-03 23:48] VITALS: BP 111/56; PULSE 95; RESP 16; TEMP 36.6; O2SAT 93
[2022-07-04] VITALS (10 sets, daily range): BP systolic 101–115; BP diastolic 64–83; PULSE 93–104; RESP 16–18; TEMP 35.9–36.7; O2SAT 86–95; BMI 45.1
[2022-07-04] MEDS: 0.9 % Sodium Chloride Flush 3 ML SYRINGE IVFLUSH ×3 (00:06→20:48)
[2022-07-04] MEDS: Acetaminophen 325 MG TABLET 650 MG PO (00:06)
[2022-07-04] MEDS: Heparin Sodium,Porcine 5,000 UNIT/ML VIAL 5000 UNIT SUBCUT ×2 (04:48→18:07)
--- NOTE | 2022-07-04 07:00 | CA_ITS ---
Transthoracic Echocardiogram Patient (Last, First, Middle): Brandon Lang Y Gender: Female Date of : 1975 Age: 47 Procedure Date: 07/04/2022 Procedure Type: Transthoracic Echocardiogram Location: [facility] – [place] Height: 157. cm Weight: 112.04 kg BSA: 2.09 m2 Heart Rate: 95 bpm BP: 101 / 73 mmHg Sales Director: IVAN Referring MD: Shyanne Logan NP Symptoms: chf Study Quality: Technically Difficult/Contrast ECG Rhythm: Sinus Conclusions: - Even with contrast, difficult to assess LV function/wall motion. LVEF probably > 50%. - Valves poorly visualized. - Mild pulmonary hypertension but could be underestimated. Findings Procedure Information Contrast agent, definity, is being given per protocol without apparent complications. Left Ventricle Normal left ventricular cavity size. Regional wall motion abnormalities can not be excluded due to suboptimal endocardial definition. Diastolic function is normal for age. Even with contrast, difficult to assess LV function/wall motion. LVEF probably > 50%. Right Ventricle The right ventricle was not well visualized. Aortic Valve The aortic valve was not well visualized. No significant stenosis or regurgitation. Mitral Valve The mitral valve was not well visualized. Pulmonic Valve The pulmonic valve was not well visualized. Tricuspid Valve There is mild tricuspid valve regurgitation. The right ventricular systolic pressure is 45 mmHg. The pulmonary artery systolic pressure may be underestimated. Mild pulmonary hypertension is present. Great Vessels The asc aorta is normal in size. Venous The inferior vena cava is normal in size and collapses less than 50% with inspiration. Pericardium/Pleural There is no evidence of pericardial effusion. Prior Study Comparison No significant change compared to prior study dated: 10/18/2021. Measurements 2D Linear Measurements LVOT Diam: 2.40 3.0+(-)1.3 cm Mitral Valve MV Pk E: 0.87 MV PK A: 0.75 MV Decel Time: 184.00 E/A: 1.20 E'Lateral: 11.50 E'Medial: 6.53 E/E' Med: 13.30 E/E' Lat: 7.60 PHT: 54.00 MVA PHT: 4.07 Decel [place]: 4.73 Aortic Valve AoV Pk Kahlil: 1.20 AoV Mn Kahlil: 0.85 AoV VTI: 0.22 AoV Pk Grad: 6.00 Aov Mn Grad: 4.00 HENRI Cont.VTI: 3.14 LVOT LVOT Pk Kahlil: 0.84 LVOT Mn Kahlil: 0.64 LVOT VTI: 0.15 LVOT Pk Grad: 3.00 LVOT Mn Grad: 2.00 LVOT Diam: 2.40 LVOT Area: 4.52 Diastolic Function MV Pk E: 0.87 MV Pk A: 0.75 E/A: 1.20 E'Medial: 6.53 E/E' Med: 13.30 E' Laterial: 11.50 E/E' Lat: 7.60 Right Ventricle TVS' Kahlil: 6.96 Tricuspid Valve TR Pk Kahlil: 2.29 TR Pk Grad: 21.00 RA Press: 8.00 RVSP: 45.00 Great Vessels Aorta Sinus of Valsalva: 3.30 2.0-3.5 cm Ao Asc: 3.00 2.1-3.4 cm Pulmonary Valve PV Pk Kahlil: 0.87 Peak PV Grad: 3.00 Updated in Other Vendor System with Status of Final Aldair Robles MD electronically signed on 07/04/2022 11:24:54 AM with status of Final
[2022-07-04 07:43] LABS: Alanine Aminotransferase 26 U/L (0-31); Albumin Level 3.2 g/dL (3.5-5.0); Alkaline Phosphatase 74 U/L (39-117); Anion Gap 14 (12-20); Aspartate Amino Transferase 25 U/L (5-31); Bilirubin Total 1.1 mg/dL (0.0-1.0); Blood Urea Nitrogen 17 mg/dL (9-16); Calcium 8.8 mg/dL (8.4-10.2); Carbon Dioxide 40 mmol/L (22-29); Chloride 93 mmol/L (96-108); Creatinine Clr Calc Pharmacy 96.7; Estimated Glomerular Filt Rate > 60; Glucose Random 96 mg/dL (60-115); Potassium 3.8 mmol/L (3.3-5.1); Sodium 143 mmol/L (135-145); Total Protein 5.9 g/dL (6.5-8.0)
[2022-07-04] MEDS: Fluticasone/Vilanterol 200/25 BLST.W.DEV 1 PUFF INHALE (09:06)
[2022-07-04] MEDS: Furosemide 40 MG/4 ML VIAL IVPUSH ×2 (09:10→18:07)
[2022-07-04] MEDS: ARIPiprazole 5 MG TABLET PO (09:11)
[2022-07-04] MEDS: lamoTRIgine 100 MG TABLET PO (09:11)
--- NOTE | 2022-07-04 09:42 | PM.CNCAR ---
History of Present Illness History of Present Illness Date of Service: 07/04/22 Chief complaint: CHF Narrative: This is a cardiology consultation regarding evaluation of congestive heart failure. Patient not very communicative and discussed with mother instead. Using legal administrative assistant provided by the hospital. She is reported to have severe sleep apnea. From the cardiac standpoint, she has seen Dr. Lebron in the past. Last few months back. Per his note, suspected to have obesity/hypoventilation syndrome/chronic respiratory failure on home oxygen. According to the mother, patient has been very sleepy and she sleeps just sitting in her bed. This can happen for several hours a day. She has checked her pulse ox and it drops as low as the 50s and hence she was concerned and brought her here. Patient really does not do much at baseline and has minimal ambulation. She does get short of breath with activity. Review of Systems Review of Systems: Yes all other systems are reviewed and are negative Constitutional: Constitutional: Reports as per HPI and Reports no additional constitutional complaints Eyes: Eyes: Reports as per HPI and Denies no additional eye complaints ENT: Denies system reviewed and no additional complaints, except as documented and Reports as per HPI Cardiovascular: Cardiovascular: Reports as per HPI, Reports no additional cardiovascular complaints, Denies acrocyanosis, Denies cool extremities, Denies chest pain, Denies leg edema, Denies lightheadedness, Denies palpitations and Reports dyspnea Respiratory: Respiratory: Reports as per HPI, Denies no additional respiratory complaints and Reports dyspnea Gastrointestinal: Gastrointestinal: Reports as per HPI and Denies no additional gastrointestinal complaints Genitourinary: Genitourinary: Reports as per HPI Musculoskeletal: Musculoskeletal: Reports no additional musculoskeletal complaints and Reports as per HPI Integumentary/Breasts: Skin/Breast: Reports system reviewed and no additional complaints, except as docu Neurologic: Reports system reviewed and no additional complaints, except as documented and Reports as per HPI Psychiatric: Psychiatric: Reports no additional psychiatric complaints and Reports as per HPI Endocrine: Endocrine: Reports no additional endocrine complaints, Reports as per HPI and Denies palpitations Hematologic/Lymphatic: Hematologic/Lymphatic: Reports no additional hematologic/lymphatic complaints and Reports as per HPI Allergic/Immunologic: Allergic/Immunologic: Reports no additional allergic/immunologic complaints and Reports as per HPI [facility] Past Medical History Medical History (Updated 07/04/22 @ 09:46 by Aldair Robles MD) Asthma Intellectual disability Oxygen desaturation during sleep Sleep apnea Status post repair of fracture of orbit Family History Family History Mother Diabetes Hypertension Father Hypertension Surgical History Surgical History History of esophagogastroduodenoscopy (EGD) History of open reduction and internal fixation (ORIF) procedure Status post spinal surgery Social History Social History Household Members: Family Housing: House Do you presently have visiting nurse or other home services: Yes Patient Tobacco Use Status: Never used Tobacco Use of substances other than those prescribed or required for medical reasons: No Currently Displaying Signs/Symptoms of Drug Intoxication Withdrawal: No Have you been hit, kicked, punched, or otherwise hurt by someone within the past year? If so, by whom?: No Do you feel safe in your current relationship?: Yes Is there a partner from a previous relationship who is making you feel unsafe now?: No Are you made to feel afraid or neglected: No Advance Directives: No Advance Directives Information Provided: Yes Do you have thoughts of harming others: None Do you have a plan to hurt others: No Plan Recently lost weight without trying: No Nutrition Risks: No Nutritional Risk Patient : No : No Poor oral hygiene: No service: No Current occupational status: disabled Meds Allergies Allergy/AdvReac Type Severity Reaction Status Date / Time No Known Allergies Allergy Unknown Verified 04/11/22 13:24 [No Known Allergies*] Active Medications: Current Medications Acetaminophen (Acetaminophen 325 Mg Tablet) 650 mg PO Q6H PRN PRN Reason: Pain, Mild (Pain Scale 1-3) Last Admin: 07/04/22 00:06 Dose: 650 mg Aripiprazole (Aripiprazole 5 Mg Tablet) 5 mg PO DAILY [facility] Last Admin: 07/04/22 09:11 Dose: 5 mg Albuterol Sulfate 2.5 mg/ (Ipratropium [place] 0.5 mg) 0 mg INHALE RQ4H WHILE AWAKE [facility] Last Admin: 07/04/22 09:06 Dose: 2.5 each Docusate Sodium (Docusate Sodium 100 Mg Capsule) 100 mg PO BID PRN PRN Reason: Constipation Fluticasone Propionate (Fluticasone Propionate Nasal 16 Gm [place]) 2 spray NOSTRIL-B DAILY [facility] Last Admin: 07/04/22 09:16 Dose: Not Given Fluticasone/Vilanterol (Fluticasone/Vilanterol 200/25 Blst.W.Dev) 1 puff INHALE RDAILY [facility] Last Admin: 07/04/22 09:06 Dose: 1 puff Furosemide (Furosemide 40 Mg/4 Ml Vial) 40 mg IVPUSH BID@0900,1800 [facility]; Protocol Last Admin: 07/04/22 09:10 Dose: 40 mg Heparin Sodium (Porcine) (Heparin Sodium,Porcine 5,000 Unit/Ml Vial) 5,000 unit SUBCUT Q12H [facility] Last Admin: 07/04/22 04:48 Dose: 5,000 unit Cefazolin Sodium 1 gm/ Sodium (Chloride) 50 mls @ 100 mls/hr IV Q8H [facility] Last Infusion: 07/04/22 04:48 Dose: Infused Lamotrigine (Lamotrigine 100 Mg Tablet) 100 mg PO DAILY [facility] Last Admin: 07/04/22 09:11 Dose: 100 mg Ondansetron HCl (Ondansetron Hcl 4 Mg/2 Ml Vial) 4 mg IVPUSH Q8H PRN PRN Reason: Nausea and Vomiting Pharmacy Consult (Consult Rx Perform Med Rec) 1 each MISCELLANE ONCE PRN PRN Reason: Consult order Senna (Sennosides 8.6 Mg Tablet) 17.2 mg PO BEDTIME PRN PRN Reason: constipation Sodium Chloride (0.9 % Sodium Chloride Flush 3 Ml Syringe) 3 ml IVFLUSH QSHIFT [facility] Last Admin: 07/04/22 09:11 Dose: 3 ml Home Medications Medication Instructions Recorded Confirmed Last Taken Type baclofen 10 mg tablet 0.5 - 1 tab PO BEDTIME PRN muscle 10/27/21 07/03/22 Unknown History spasm econazole 1 % topical cream 1 appl topical BID 10/27/21 07/03/22 04/05/22 History white petrolatum 42 % topical 1 ea topical BID PRN Dry Skin 10/27/21 07/03/22 Unknown History ointment cetirizine 10 mg tablet 10 mg PO DAILY 01/18/22 07/03/22 04/05/22 History fluoxetine 20 mg capsule 20 mg PO DAILY 01/18/22 07/03/22 04/05/22 History naproxen 500 mg tablet 500 mg PO BID PRN pain 01/18/22 07/03/22 Unknown History trazodone 50 mg tablet 100 mg PO BEDTIME PRN Insomnia 01/18/22 07/03/22 Unknown History albuterol sulfate 2.5 mg/3 mL 1 amp inhalation Q4H PRN Shortness 04/05/22 07/03/22 Unknown History (0.083 %) solution for nebulization Of Breath albuterol sulfate 90 mcg/actuation 2 puff inhalation Q4H PRN 04/05/22 07/03/22 Unknown History aerosol inhaler (Ventolin HFA) shortness of breath or wheezing docusate sodium 100 mg capsule 1 cap PO BID PRN Constipation 04/05/22 07/03/22 Unknown History fluticasone propionate 50 2 spray intranasal DAILY 04/05/22 07/03/22 04/05/22 History mcg/actuation nasal spray,suspension lamotrigine 100 mg tablet 100 mg PO DAILY 04/05/22 07/03/22 04/05/22 History sennosides 8.6 mg tablet (senna) 2 tab PO BEDTIME PRN constipation 04/05/22 07/03/22 Unknown History arformoterol 15 mcg/2 mL solution 2 ml inhalation BID 07/03/22 07/03/22 Unknown History for nebulization (Brovana) aripiprazole 5 mg tablet 5 mg PO DAILY 07/03/22 07/03/22 Unknown History fluticasone propionate 230 2 puff inhalation BID 07/03/22 07/03/22 Unknown History mcg-salmeterol 21 mcg/actuation HFA inhaler (Advair HFA) Physical Exam Vital Signs: Vital Signs: Last Vital Signs Temp 96.9 F 07/04/22 07:33 Pulse 96 07/04/22 09:08 Resp 17 07/04/22 09:08 BP 102/66 07/04/22 07:33 Pulse Ox 86 L 07/04/22 07:33 O2 Del Method Nasal Cannula 07/04/22 07:33 O2 Flow Rate 2 07/04/22 07:33 Oxygen Flow Rate 2 07/03/22 11:26 BMI result Body Mass Index 45.1 Const: General: comfortable and no acute distress Orientation/consciousness: patient oriented x3 HEENT: Other: Unremarkable Head: Yes normal to inspection Neck: Neck: Yes normal visual inspection Chest: Chest palpation & inspection: normal inspection of the chest Resp: Auscultation: rhonchi Cardio: Palpation: normal PMI Heart sounds: S1 normal heart sound present, S2 normal heart sound present, no gallops, no murmurs and no rubs GI: Palpation (GI): Soft to palpation Back/Spine/Pelvis: Other: unremarkable Skin: General skin exam: no rashes or lesions noted Neuro: General: patient oriented x3 Extrem: Other: 1+ edema General: Yes normal to inspection Psych: Mental Status: mental status grossly abnormal Objective Labs and Meds 07/03/22 11:55 07/04/22 06:31 Lab results: Laboratory Results - last 24 hr 07/03/22 07/03/22 07/03/22 11:55 11:55 11:55 WBC 7.8 RBC 6.31 H Hgb 11.5 L Hct 44.3 MCV 70.2 L MCH 18.2 L MCHC 26.0 L RDW 21.8 H Plt Count 230 MPV Not Reportable Immature Gran % (Auto) 0.3 Neut % (Auto) 73.5 H Lymph % (Auto) 14.0 L [place] % (Auto) 7.3 Eos % (Auto) 4.4 H Baso % (Auto) 0.5 Lymph # (Auto) 1.1 L [place] # (Auto) 0.6 Eos # (Auto) 0.3 Baso # (Auto) 0.0 Abs Immat Gran (auto) 0.02 Absolute Neuts (auto) 5.7 Absolute Nucleated RBC 0.000 Nucleated RBC % (auto) 0.0 Smear Tech's Comments VERIFIED PT 15.8 H INR 1.4 H APTT 32.3 VBG pH VBG pCO2 VBG pO2 VBG HCO3 VBG O2 Saturation VBG Base Excess Sodium 139 Potassium 3.8 Chloride 93 L Carbon Dioxide 37 H Anion Gap 13 BUN 20 H Creatinine 0.86 Estim Creat Clear Calc 95.8 Estimated GFR > 60 Random Glucose 117 H Lactic Acid Calcium 8.8 Total Bilirubin 1.2 H AST 30 ALT 30 Alkaline Phosphatase 79 Troponin I High Sens B-Natriuretic Peptide Total Protein 6.3 L Albumin 3.5 Influenza Type A (PCR) Influenza Type B (PCR) RSV RNA Qual (PCR) SARS-CoV-2 RNA (RT-PCR) 07/03/22 07/03/22 07/03/22 11:55 11:55 11:55 WBC RBC Hgb Hct MCV MCH MCHC RDW Plt Count MPV Immature Gran % (Auto) Neut % (Auto) Lymph % (Auto) [place] % (Auto) Eos % (Auto) Baso % (Auto) Lymph # (Auto) [place] # (Auto) Eos # (Auto) Baso # (Auto) Abs Immat Gran (auto) Absolute Neuts (auto) Absolute Nucleated RBC Nucleated RBC % (auto) Smear Tech's Comments PT INR APTT VBG pH VBG pCO2 VBG pO2 VBG HCO3 VBG O2 Saturation VBG Base Excess Sodium Potassium Chloride Carbon Dioxide Anion Gap BUN Creatinine Estim Creat Clear Calc Estimated GFR Random Glucose Lactic Acid Calcium Total Bilirubin AST ALT Alkaline Phosphatase Troponin I High Sens < 3.5 B-Natriuretic Peptide 635 H Total Protein Albumin Influenza Type A (PCR) NEGATIVE Influenza Type B (PCR) NEGATIVE RSV RNA Qual (PCR) NEGATIVE SARS-CoV-2 RNA (RT-PCR) NEGATIVE 07/03/22 07/03/22 07/04/22 14:42 14:45 06:31 WBC RBC Hgb Hct MCV MCH MCHC RDW Plt Count MPV Immature Gran % (Auto) Neut % (Auto) Lymph % (Auto) [place] % (Auto) Eos % (Auto) Baso % (Auto) Lymph # (Auto) [place] # (Auto) Eos # (Auto) Baso # (Auto) Abs Immat Gran (auto) Absolute Neuts (auto) Absolute Nucleated RBC Nucleated RBC % (auto) Smear Tech's Comments PT INR APTT VBG pH 7.39 VBG pCO2 76 VBG pO2 49 VBG HCO3 47 H VBG O2 Saturation 62.0 VBG Base Excess 17.2 Sodium 143 Potassium 3.8 Chloride 93 L Carbon Dioxide 40 H* Anion Gap 14 BUN 17 H Creatinine 0.85 Estim Creat Clear Calc 96.7 Estimated GFR > 60 Random Glucose 96 Lactic Acid 1.0 Calcium 8.8 Total Bilirubin 1.1 H AST 25 ALT 26 Alkaline Phosphatase 74 Troponin I High Sens B-Natriuretic Peptide Total Protein 5.9 L Albumin 3.2 L Influenza Type A (PCR) Influenza Type B (PCR) RSV RNA Qual (PCR) SARS-CoV-2 RNA (RT-PCR) ECG Interpretation: EKG with sinus rhythm at 94/Min; rightward axis; nonspecific ST-T changes. Slightly short [place]; normal corrected QT. Imaging Radiologist's impression: Impressions Chest X-Ray 07/03/22 12:55 IMPRESSION: Low lung volumes. No acute intrathoracic disease. Venous Duplex 07/03/22 15:00 IMPRESSION: No evidence of right lower extremity deep venous thrombosis. Chest CTA 07/03/22 20:08 IMPRESSION: 1. No evidence of PE. 2. No evidence of aortic dissection or aneurysm. 3. The lungs are clear. 4. Cholelithiasis without wall thickening VTE: negative Assessment and Plan (1) Acute on chronic right heart failure: Status: Acute (2) GEORGE (obstructive sleep apnea): Status: Acute (3) Intellectual disability: Status: Acute (4) Morbid obesity: Status: Acute Plan Echocardiogram from last year shows LVEF of 60-60%, mild diastolic dysfunction with indeterminate filling pressures. Right ventricle not well visualized. Valves also not well visualized but thought to be unremarkable. RVSP could not be calculated. Overall, limited study. Labs show creatinine of 0.85. BUN is 17. Carbon dioxide is 40. Chloride 93. Potassium 3.8. High sensitivity troponin unremarkable. Cardiac BNP 635. Last year, 151. So there is a definite rise. Chest CTA shows no pulmonary embolism or dissection or aneurysm. Clear lung sears. Sleep study from last year showed very very severe GEORGE. Overall, probable right heart dysfunction related to sleep apnea. Empiric diuretics. Otherwise, mainstay of therapy will need to be addressing her sleep apnea. Will need to ask Pulmonary to address this issue as the test has been reported to have very very severe GEORGE. Discussed with mother using legal administrative assistant. Time Spent With Patient Time: Total time managing care of this patient today 75 minutes. This includes time spent in review of her outpatient as well as inpatient chart, testing, documentation, discussion with mother, hospitalist, coordination of care. Procedures Date of Service Date of Service: 07/04/22
--- NOTE | 2022-07-04 10:38 | MHC.CM.PN ---
CM met with Patient and her Mother at bedside.Patient lives in a house with her Mother/Primary Caregiver and she uses a walker to assist with mobility. Patient goes to [facility] [employer] [facility] 2-3 days/week, receives her home O2 from [facility] and receives [employer] hours/week. Home/resume said services is the goal and CM has initiated and will follow for dc planning. Patient has received Moderna/Covid vax x3 and her PCP is Dr. Miranda Maravilla.
--- NOTE | 2022-07-04 12:06 | HO.PM.IMPN ---
Subjective Subjective Date of Service: 07/04/22 Review of Systems Follow up Physical Exam Vital Signs: Vital Signs: Last Vital Signs Temp 96.9 F 07/04/22 07:33 Pulse 96 07/04/22 09:08 Resp 17 07/04/22 09:08 BP 102/66 07/04/22 07:33 Pulse Ox 86 L 07/04/22 07:33 O2 Del Method Nasal Cannula 07/04/22 07:33 O2 Flow Rate 2 07/04/22 07:33 Oxygen Flow Rate 2 07/03/22 11:26 BMI result Body Mass Index 45.1 Objective Data Active Medications Acetaminophen (Acetaminophen 325 Mg Tablet) 650 mg PO Q6H PRN PRN Reason: Pain, Mild (Pain Scale 1-3) Last Admin: 07/04/22 00:06 Dose: 650 mg Documented By: MARTINE Aripiprazole (Aripiprazole 5 Mg Tablet) 5 mg PO DAILY [facility] Last Admin: 07/04/22 09:11 Dose: 5 mg Documented By: BREANA Albuterol Sulfate 2.5 mg/ (Ipratropium [place] 0.5 mg) 0 mg INHALE RQ4H WHILE AWAKE [facility] Last Admin: 07/04/22 09:06 Dose: 2.5 each Documented By: GENIA Docusate Sodium (Docusate Sodium 100 Mg Capsule) 100 mg PO BID PRN PRN Reason: Constipation Fluticasone Propionate (Fluticasone Propionate Nasal 16 Gm [place]) 2 spray NOSTRIL-B DAILY [facility] Last Admin: 07/04/22 09:16 Dose: Not Given Documented By: BREANA Non-Admin Reason: waiting for med Fluticasone/Vilanterol (Fluticasone/Vilanterol 200/25 Blst.W.Dev) 1 puff INHALE RDAILY [facility] Last Admin: 07/04/22 09:06 Dose: 1 puff Documented By: GENIA Furosemide (Furosemide 40 Mg/4 Ml Vial) 40 mg IVPUSH BID@0900,1800 [facility]; Protocol Last Admin: 07/04/22 09:10 Dose: 40 mg Documented By: BREANA Heparin Sodium (Porcine) (Heparin Sodium,Porcine 5,000 Unit/Ml Vial) 5,000 unit SUBCUT Q12H [facility] Last Admin: 07/04/22 04:48 Dose: 5,000 unit Documented By: MARTINE Cefazolin Sodium 1 gm/ Sodium (Chloride) 50 mls @ 100 mls/hr IV Q8H [facility] Last Admin: 07/04/22 12:04 Dose: 100 mls/hr Documented By: BREANA Lamotrigine (Lamotrigine 100 Mg Tablet) 100 mg PO DAILY [facility] Last Admin: 07/04/22 09:11 Dose: 100 mg Documented By: BREANA Ondansetron HCl (Ondansetron Hcl 4 Mg/2 Ml Vial) 4 mg IVPUSH Q8H PRN PRN Reason: Nausea and Vomiting Pharmacy Consult (Consult Rx Perform Med Rec) 1 each MISCELLANE ONCE PRN PRN Reason: Consult order Senna (Sennosides 8.6 Mg Tablet) 17.2 mg PO BEDTIME PRN PRN Reason: constipation Sodium Chloride (0.9 % Sodium Chloride Flush 3 Ml Syringe) 3 ml IVFLUSH QSHIFT [facility] Last Admin: 07/04/22 09:11 Dose: 3 ml Documented By: BREANA Labs 07/03/22 11:55 07/04/22 06:31 Labs: Laboratory Results - last 24 hr 07/03/22 07/03/22 07/03/22 11:55 11:55 11:55 MCV 70.2 L MCH 18.2 L MCHC 26.0 L RDW 21.8 H Plt Count 230 MPV Not Reportable Immature Gran % (Auto) 0.3 Neut % (Auto) 73.5 H Lymph % (Auto) 14.0 L [place] % (Auto) 7.3 Eos % (Auto) 4.4 H Baso % (Auto) 0.5 Lymph # (Auto) 1.1 L [place] # (Auto) 0.6 Eos # (Auto) 0.3 Baso # (Auto) 0.0 Abs Immat Gran (auto) 0.02 Absolute Neuts (auto) 5.7 Absolute Nucleated RBC 0.000 Nucleated RBC % (auto) 0.0 Smear Tech's Comments VERIFIED PT 15.8 H INR 1.4 H APTT 32.3 VBG pH VBG pCO2 VBG pO2 VBG HCO3 VBG O2 Saturation VBG Base Excess Anion Gap 13 Estim Creat Clear Calc 95.8 Estimated GFR > 60 Random Glucose 117 H Lactic Acid Calcium 8.8 Total Bilirubin 1.2 H AST 30 ALT 30 Alkaline Phosphatase 79 Troponin I High Sens B-Natriuretic Peptide Total Protein 6.3 L Albumin 3.5 Influenza Type A (PCR) Influenza Type B (PCR) RSV RNA Qual (PCR) SARS-CoV-2 RNA (RT-PCR) 07/03/22 07/03/22 07/03/22 11:55 11:55 11:55 MCV MCH MCHC RDW Plt Count MPV Immature Gran % (Auto) Neut % (Auto) Lymph % (Auto) [place] % (Auto) Eos % (Auto) Baso % (Auto) Lymph # (Auto) [place] # (Auto) Eos # (Auto) Baso # (Auto) Abs Immat Gran (auto) Absolute Neuts (auto) Absolute Nucleated RBC Nucleated RBC % (auto) Smear Tech's Comments PT INR APTT VBG pH VBG pCO2 VBG pO2 VBG HCO3 VBG O2 Saturation VBG Base Excess Anion Gap Estim Creat Clear Calc Estimated GFR Random Glucose Lactic Acid Calcium Total Bilirubin AST ALT Alkaline Phosphatase Troponin I High Sens < 3.5 B-Natriuretic Peptide 635 H Total Protein Albumin Influenza Type A (PCR) NEGATIVE Influenza Type B (PCR) NEGATIVE RSV RNA Qual (PCR) NEGATIVE SARS-CoV-2 RNA (RT-PCR) NEGATIVE 07/03/22 07/03/22 07/04/22 14:42 14:45 06:31 MCV MCH MCHC RDW Plt Count MPV Immature Gran % (Auto) Neut % (Auto) Lymph % (Auto) [place] % (Auto) Eos % (Auto) Baso % (Auto) Lymph # (Auto) [place] # (Auto) Eos # (Auto) Baso # (Auto) Abs Immat Gran (auto) Absolute Neuts (auto) Absolute Nucleated RBC Nucleated RBC % (auto) Smear Tech's Comments PT INR APTT VBG pH 7.39 VBG pCO2 76 VBG pO2 49 VBG HCO3 47 H VBG O2 Saturation 62.0 VBG Base Excess 17.2 Anion Gap 14 Estim Creat Clear Calc 96.7 Estimated GFR > 60 Random Glucose 96 Lactic Acid 1.0 Calcium 8.8 Total Bilirubin 1.1 H AST 25 ALT 26 Alkaline Phosphatase 74 Troponin I High Sens B-Natriuretic Peptide Total Protein 5.9 L Albumin 3.2 L Influenza Type A (PCR) Influenza Type B (PCR) RSV RNA Qual (PCR) SARS-CoV-2 RNA (RT-PCR) Assessment and Plan (1) Acute on chronic right heart failure: Status: Acute Plan 47 year old women admitted with CHF requiring IV diuretics? HFpEF secondary to GEORGE Lasix IV BID for now and change to po tomorrow cardiology rec pulm consult for GEORGE monitor on telemetry strict intake and output, daily weights RLE cellulitis continue Kefzol Morbid obesity.? BMI 45.4 Discussed importance of weight management as this may be contributing to worsening of other comorbidities Mental Health/intellectual disability Continue home medications Obstructive sleep apnea CPAP pulm consult DVT prophylaxis Attending Dr. Grimaldo Full code continued hospital stay for treatment of CHF requiring IV antibiotics Time Spent With Patient Time: Total time managing care of this patient today ____ minutes. Quality Stroke Does the patient have a stroke diagnosis?: No VTE Prior VTE?: No VTE Risk Level:: Medical - moderate - high VTE Device Contraindication: Treatment Not Indicated VTE Drug Contraindication: N/A - Med Ordered
[2022-07-05 03:26] VITALS: BP 109/70; PULSE 103; RESP 18; TEMP 36.4; O2SAT 97
[2022-07-05] MEDS: Heparin Sodium,Porcine 5,000 UNIT/ML VIAL 5000 UNIT SUBCUT (04:28)
[2022-07-05 06:00] VITALS: BMI 44.8
[2022-07-05 07:16] VITALS: BP 117/65; PULSE 91; RESP 17; TEMP 36.1; O2SAT 94
[2022-07-05] MEDS: Fluticasone/Vilanterol 200/25 BLST.W.DEV 1 PUFF INHALE (07:50)
[2022-07-05 07:51] VITALS: PULSE 102; RESP 18; O2SAT 94
[2022-07-05] MEDS: ARIPiprazole 5 MG TABLET PO (08:15)
[2022-07-05] MEDS: lamoTRIgine 100 MG TABLET PO (08:15)
[2022-07-05] MEDS: 0.9 % Sodium Chloride Flush 3 ML SYRINGE IVFLUSH (08:15)
[2022-07-05] MEDS: Furosemide 40 MG/4 ML VIAL IVPUSH (08:15)
[2022-07-05 08:58] LABS: Anion Gap 13 (12-20); Blood Urea Nitrogen 11 mg/dL (9-16); Calcium 8.8 mg/dL (8.4-10.2); Carbon Dioxide 38 mmol/L (22-29); Chloride 94 mmol/L (96-108); Creatinine Clr Calc Pharmacy 115.3; Estimated Glomerular Filt Rate > 60; Glucose Random 113 mg/dL (60-115); Potassium 3.9 mmol/L (3.3-5.1); Sodium 141 mmol/L (135-145)
--- NOTE | 2022-07-05 09:30 | PM.CNPUL ---
History of Present Illness History of Present Illness Consult date: 07/05/22 Requesting physician: Shyanne Logan Reason for consult: dyspnea, hypoxemia and obstructive sleep apnea Chief complaint: CHF Narrative: 47 year old women admitted with increased shortness of breath, fever and generalized feeling of being unwell for a few days . ? Her mother is her primary caregiver.? Apparently she has been sleeping excessively and reporting to her family shortness of breath on exertion.? She is on 2 L nasal cannula at home and apparently her pulse oximetry was reading 59%.? Her family also reported increased lower extremity edema over the last several weeks.? She had been on torsemide for which she started a few months ago but that does not seem to be working.? BNP noted to be mildly elevated 635, COVID, flu and RSV negative, chronically elevated pCO2, compensated VBG.? Placed on OxyMask.? Given IV Lasix, Rocephin for lower extremity cellulitis.? Will admit for further management and treatment of acute on chronic respiratory failure secondary to congestive heart failure. This patient with chronic morbid obesity. Intellectual disability, has a longstanding history of obstructive sleep apnea, which was diagnosed at least back in 2005. Patient was offered CPAP therapy and even brought to the sleep lab for CPAP titration but she refused. She has been treated mostly with oxygen 2 L/minute at night. Currently she is being followed by sleep medicine team, and is scheduled to have a polysomnogram study in the sleep lab with possible CPAP titration. That study happens to be scheduled for tonight. Review of Systems Review of Systems: Yes Unobtainable due to mental status PMFSH Past Medical History Medical History Asthma Intellectual disability Oxygen desaturation during sleep Sleep apnea Status post repair of fracture of orbit Family History Family History Mother Diabetes Hypertension Father Hypertension Surgical History Surgical History History of esophagogastroduodenoscopy (EGD) History of open reduction and internal fixation (ORIF) procedure Status post spinal surgery Social History Social History Household Members: Family Housing: House Do you presently have visiting nurse or other home services: Yes Patient Tobacco Use Status: Never used Tobacco Use of substances other than those prescribed or required for medical reasons: No Currently Displaying Signs/Symptoms of Drug Intoxication Withdrawal: No Have you been hit, kicked, punched, or otherwise hurt by someone within the past year? If so, by whom?: No Do you feel safe in your current relationship?: Yes Is there a partner from a previous relationship who is making you feel unsafe now?: No Are you made to feel afraid or neglected: No Advance Directives: No Advance Directives Information Provided: Yes Do you have thoughts of harming others: None Do you have a plan to hurt others: No Plan Recently lost weight without trying: No Nutrition Risks: No Nutritional Risk Patient : No : No Poor oral hygiene: No service: No Current occupational status: [email or web address] Allergies Allergy/AdvReac Type Severity Reaction Status Date / Time No Known Allergies Allergy Unknown Verified 04/11/22 13:24 [No Known Allergies*] Active Medications: Current Medications Acetaminophen (Acetaminophen 325 Mg Tablet) 650 mg PO Q6H PRN PRN Reason: Pain, Mild (Pain Scale 1-3) Last Admin: 07/04/22 00:06 Dose: 650 mg Aripiprazole (Aripiprazole 5 Mg Tablet) 5 mg PO DAILY [facility] Last Admin: 07/05/22 08:15 Dose: 5 mg Albuterol Sulfate 2.5 mg/ (Ipratropium [place] 0.5 mg) 0 mg INHALE RQ4H WHILE AWAKE [facility] Last Admin: 07/05/22 07:50 Dose: 2.5 each Docusate Sodium (Docusate Sodium 100 Mg Capsule) 100 mg PO BID PRN PRN Reason: Constipation Fluticasone Propionate (Fluticasone Propionate Nasal 16 Gm [place]) 2 spray NOSTRIL-B DAILY [facility] Last Admin: 07/04/22 09:16 Dose: Not Given Fluticasone/Vilanterol (Fluticasone/Vilanterol 200/25 Blst.W.Dev) 1 puff INHALE RDAILY [facility] Last Admin: 07/05/22 07:50 Dose: 1 puff Furosemide (Furosemide 40 Mg/4 Ml Vial) 40 mg IVPUSH BID@0900,1800 [facility]; Protocol Last Admin: 07/05/22 08:15 Dose: 40 mg Heparin Sodium (Porcine) (Heparin Sodium,Porcine 5,000 Unit/Ml Vial) 5,000 unit SUBCUT Q12H [facility] Last Admin: 07/05/22 04:28 Dose: 5,000 unit Cefazolin Sodium 1 gm/ Sodium (Chloride) 50 mls @ 100 mls/hr IV Q8H [facility] Last Infusion: 07/05/22 05:13 Dose: Infused Lamotrigine (Lamotrigine 100 Mg Tablet) 100 mg PO DAILY [facility] Last Admin: 07/05/22 08:15 Dose: 100 mg Ondansetron HCl (Ondansetron Hcl 4 Mg/2 Ml Vial) 4 mg IVPUSH Q8H PRN PRN Reason: Nausea and Vomiting Pharmacy Consult (Consult Rx Perform Med Rec) 1 each MISCELLANE ONCE PRN PRN Reason: Consult order Senna (Sennosides 8.6 Mg Tablet) 17.2 mg PO BEDTIME PRN PRN Reason: constipation Sodium Chloride (0.9 % Sodium Chloride Flush 3 Ml Syringe) 3 ml IVFLUSH QSHIFT [facility] Last Admin: 07/05/22 08:15 Dose: 3 ml Home Medications Medication Instructions Recorded Confirmed Last Taken Type baclofen 10 mg tablet 0.5 - 1 tab PO BEDTIME PRN muscle 10/27/21 07/03/22 Unknown History spasm econazole 1 % topical cream 1 appl topical BID 10/27/21 07/03/22 04/05/22 History white petrolatum 42 % topical 1 ea topical BID PRN Dry Skin 10/27/21 07/03/22 Unknown History ointment cetirizine 10 mg tablet 10 mg PO DAILY 01/18/22 07/03/22 04/05/22 History fluoxetine 20 mg capsule 20 mg PO DAILY 01/18/22 07/03/22 04/05/22 History naproxen 500 mg tablet 500 mg PO BID PRN pain 01/18/22 07/03/22 Unknown History trazodone 50 mg tablet 100 mg PO BEDTIME PRN Insomnia 01/18/22 07/03/22 Unknown History albuterol sulfate 2.5 mg/3 mL 1 amp inhalation Q4H PRN Shortness 04/05/22 07/03/22 Unknown History (0.083 %) solution for nebulization Of Breath albuterol sulfate 90 mcg/actuation 2 puff inhalation Q4H PRN 04/05/22 07/03/22 Unknown History aerosol inhaler (Ventolin HFA) shortness of breath or wheezing docusate sodium 100 mg capsule 1 cap PO BID PRN Constipation 04/05/22 07/03/22 Unknown History fluticasone propionate 50 2 spray intranasal DAILY 04/05/22 07/03/22 04/05/22 History mcg/actuation nasal spray,suspension lamotrigine 100 mg tablet 100 mg PO DAILY 04/05/22 07/03/22 04/05/22 History sennosides 8.6 mg tablet (senna) 2 tab PO BEDTIME PRN constipation 04/05/22 07/03/22 Unknown History arformoterol 15 mcg/2 mL solution 2 ml inhalation BID 07/03/22 07/03/22 Unknown History for nebulization (Brovana) aripiprazole 5 mg tablet 5 mg PO DAILY 07/03/22 07/03/22 Unknown History fluticasone propionate 230 2 puff inhalation BID 07/03/22 07/03/22 Unknown History mcg-salmeterol 21 mcg/actuation HFA inhaler (Advair HFA) Physical Exam Vital Signs: Vital Signs: Last Vital Signs Temp 97.0 F 07/05/22 07:16 Pulse 102 H 07/05/22 07:51 Resp 18 07/05/22 07:51 BP 117/65 07/05/22 07:16 Pulse Ox 94 07/05/22 07:16 O2 Del Method Nasal Cannula 07/05/22 07:16 O2 Flow Rate 2 07/05/22 07:16 Oxygen Flow Rate 2 07/03/22 11:26 BMI result Body Mass Index 44.8 The patient is grossly obese with a round face, Currently she does converse , and seems to be alert. She is on oxygen. 2 L/minute Does not show any distress. ENT: Difficult to visualize her throat because of being very narrow and crowded. NECK IS SHORT AND OBESE. CHEST PERCUSSION NOTE IS NOT PERCEPTIBLE BECAUSE OF THICK CHEST WALL. LUNGS: BREATH SOUNDS ARE VERY DISTANT AND ALMOST ABSENT OVER THE BASILAR AREAS, BUT I DO NOT HEAR ANY WHEEZES. Results Laboratory Findings 07/03/22 11:55 07/05/22 08:26 ABG, PT/INR, D-dimer: PT/INR, D-dimer PT 15.8 SEC (10.0-13.1) H 07/03/22 11:55 INR 1.4 (0.9-1.1) H 07/03/22 11:55 Abnormal lab findings: Abnormal Labs 07/03/22 07/03/22 07/03/22 11:55 11:55 11:55 RBC 6.31 H Hgb 11.5 L MCV 70.2 L MCH 18.2 L MCHC 26.0 L RDW 21.8 H Neut % (Auto) 73.5 H Lymph % (Auto) 14.0 L Eos % (Auto) 4.4 H Lymph # (Auto) 1.1 L PT 15.8 H INR 1.4 H VBG HCO3 Chloride 93 L Carbon Dioxide 37 H BUN 20 H Random Glucose 117 H Total Bilirubin 1.2 H B-Natriuretic Peptide Total Protein 6.3 L Albumin 07/03/22 07/03/22 07/04/22 11:55 14:45 06:31 RBC Hgb MCV MCH MCHC RDW Neut % (Auto) Lymph % (Auto) Eos % (Auto) Lymph # (Auto) PT INR VBG HCO3 47 H Chloride 93 L Carbon Dioxide 40 H* BUN 17 H Random Glucose Total Bilirubin 1.1 H B-Natriuretic Peptide 635 H Total Protein 5.9 L Albumin 3.2 L 07/05/22 08:26 RBC Hgb MCV MCH MCHC RDW Neut % (Auto) Lymph % (Auto) Eos % (Auto) Lymph # (Auto) PT INR VBG HCO3 Chloride 94 L Carbon Dioxide 38 H BUN Random Glucose Total Bilirubin B-Natriuretic Peptide Total Protein Albumin VENOUS BLOOD GAS STUDY ON ADMISSION: PH 7.39 PCO2 76 C/W CHRONIC RESPIRATORY FAILURE Microbiology: Microbiology 07/03/22 14:42 Blood - Venous Blood Culture - Preliminary No growth after 24 hours. 07/03/22 14:42 Blood - Venous Blood Culture - Preliminary No growth after 24 hours. Diagnostic Findings Chest x-ray: report reviewed and image reviewed Assessment and Plan (1) Acute on chronic right heart failure: Status: Acute (2) Morbid obesity: Status: Acute (3) GEORGE (obstructive sleep apnea): Status: Acute Plan THIS PATIENT HAS ACUTE ON CHRONIC CONGESTIVE HEART FAILURE WHICH HAS CLINICALLY IMPROVED. MORBID OBESITY, CHRONIC OBSTRUCTIVE SLEEP APNEA WHICH HAS REMAINED UN-TREATED IS DEFINITELY CONTRIBUTING TO RIGHT-SIDED CONGESTIVE HEART FAILURE. PATIENT HAS CHRONIC COMPENSATED RESPIRATORY FAILURE, CO2 LEVEL OF 76 IS CONCERNING. SHE WOULD DEFINITELY NEED BIPAP THERAPY AT NIGHTTIME IN ADDITION TO OXYGEN THERAPY. NOTED IN THE HISTORY SHE HAD NOT TOLERATED THE CPAP TITRATION BACK IN 2007. SHE DOES HAVE A APPOINTMENT FOR A E POLYSOMNOGRAM STUDY IN THE SLEEP LAB WHICH HAPPENS TO BE TONIGHT. I INTERROGATED THE MOTHER WHO IS THREAD TRIMMER, WITH THE HELP OF [employer] VICE PRESIDENT, AND MOTHER THINKS THAT ANN-MARIE IS AT HER BASELINE. THUS SHE CAN BE DISCHARGED HOME, AND SHE SHOULD GO FOR THE SLEEP STUDY TONIGHT. HOPEFULLY SHE CAN BE STARTED ON ADEQUATE CPAP OR BIPAP THERAPY, SOON POSSIBLE. IF SHE FAILS TO TOLERATE CPAP, THEN THE ONLY OTHER ALTERNATIVE IN HER CASE WOULD BE A TRACHEOSTOMY, FOR NONINVASIVE VENTILATORY SUPPORT . CONSIDERING INTELLECTUAL DISABILITY, SHE IS NOT A CANDIDATE FOR WEIGHT LOSS PROGRAM. I HAVE ORDERED THE THE VENOUS BLOOD GAS TO BE DONE BEFORE DISCHARGE FOR FUTURE BASELINE, EXPLAINED TO THE MOTHER THAT SHE SHOULD BE USING SAYS CPAP OR BIPAP AT NIGHTTIME, IN ADDITION. TO O2 2 L/MINUTE SHE NEEDS TO BE FOLLOWED UP CLOSELY OUTPATIENT. THANK YOU FOR ASKING ME TO SEE THIS PATIENT. Time Spent With Patient Time: Total time managing care of this patient today ____ minutes. Procedures Date of Service Date of Service: 07/05/22
--- NOTE | 2022-07-05 09:30 | PM.PNCARD ---
Subjective Subjective Date of Service: 07/05/22 Interval history: Overall, no new complaints. Patient herself does not give any history at all. According to mother, nothing new. Review of Systems Review of Systems Yes all other systems are reviewed and are negative Constitutional: Reports as per HPI and Reports no additional constitutional complaints Eyes: Reports as per HPI and Denies no additional eye complaints Denies system reviewed and no additional complaints, except as documented and Reports as per HPI Cardiovascular: Reports as per HPI, Reports no additional cardiovascular complaints, Denies acrocyanosis, Denies cool extremities, Denies chest pain, Denies leg edema, Denies lightheadedness, Denies palpitations and Denies dyspnea Respiratory: Reports as per HPI, Denies no additional respiratory complaints and Denies dyspnea Gastrointestinal: Reports as per HPI and Denies no additional gastrointestinal complaints Genitourinary: Reports as per HPI Musculoskeletal: Reports no additional musculoskeletal complaints and Reports as per HPI Skin/Breast: Reports system reviewed and no additional complaints, except as docu Reports system reviewed and no additional complaints, except as documented and Reports as per HPI Psychiatric: Reports no additional psychiatric complaints and Reports as per HPI Endocrine: Reports no additional endocrine complaints, Reports as per HPI and Denies palpitations Hematologic/Lymphatic: Reports no additional hematologic/lymphatic complaints and Reports as per HPI Allergic/Immunologic: Reports no additional allergic/immunologic complaints and Reports as per HPI Physical Exam Vital Signs: Last Vital Signs Temp 97.0 F 07/05/22 07:16 Pulse 102 H 07/05/22 07:51 Resp 18 07/05/22 07:51 BP 117/65 07/05/22 07:16 Pulse Ox 94 07/05/22 07:16 O2 Del Method Nasal Cannula 07/05/22 07:16 O2 Flow Rate 2 07/05/22 07:16 Oxygen Flow Rate 2 07/03/22 11:26 BMI result Body Mass Index 44.8 Const General: comfortable and no acute distress Orientation/consciousness: patient oriented x3 HEENT Other: Unremarkable Head: Yes normal to inspection Neck Neck: Yes normal visual inspection Chest Chest palpation & inspection: normal inspection of the chest Resp Auscultation: rhonchi Cardio Palpation: normal PMI Heart sounds: S1 normal heart sound present, S2 normal heart sound present, no gallops, no murmurs and no rubs GI Palpation (GI): Soft to palpation Back/Spine/Pelvis Other: unremarkable Skin General skin exam: no rashes or lesions noted Neuro General: patient oriented x3 Extrem Other: 1+ edema General: Yes normal to inspection Psych Mental Status: mental status grossly abnormal Objective Labs and Meds 07/03/22 11:55 07/05/22 08:26 Lab results: Laboratory Results - last 24 hr 07/05/22 08:26 Sodium 141 Potassium 3.9 Chloride 94 L Carbon Dioxide 38 H Anion Gap 13 BUN 11 Creatinine 0.71 Estim Creat Clear Calc 115.3 Estimated GFR > 60 Random Glucose 113 Calcium 8.8 Progress Note: A&P Assessment and plan (1) Acute on chronic right heart failure: Status: Acute (2) GEORGE (obstructive sleep apnea): Status: Acute (3) Intellectual disability: Status: Acute (4) Morbid obesity: Status: Acute Plan Echocardiogram is very difficult to interpret but suspected to be showing normal LVEF at > 50%. Mild pulmonary hypertension but underestimation is certainly possible. Sleep study from last year with very very severe GEORGE. Overall, it is suspected that she probably has some degree of right heart dysfunction/failure related to the above GEORGE. Mainstay of therapy for this will be appropriately treating the same with whatever is appropriate-CPAP or BiPAP. If it is still untreated, then may need to consider even tracheostomy/ventilation. I discussed this with Dr. Roc tinoco at the bedside. Also discussed with mother at the bedside. Discussed with Shyanne Logan hospitalist. Patient actually has the scheduled sleep study for titration to night at the outpatient Sleep Lab. Hence potentially discharge and she needs to keep her appointment so that the GEORGE can be appropriately treated. social studies department chair used in interactions. Mother seemed to understand. Follow-up in our clinic. Time Spent With Patient Time: Total time managing care of this patient today 45 minutes. This included using social studies department chair for discussion with the mother, discussion with sugar mill worker, hospitalist, documentation, coordination of care. Progress Note: Quality Stroke Does the patient have a stroke diagnosis?: No Procedures Date of Service Date of Service: 07/05/22
[2022-07-05 09:58] LABS: VBG Base Excess 18.7 mmol/L; VBG HCO3 46 mmol/L (22-26); VBG pCO2 63 mmHg; VBG pH 7.46 (7.32-7.43); VBG pO2 133 mmHg
[2022-07-05 10:00] LABS: Venous Blood Gas Refer to POC result
[2022-07-05 11:05] VITALS: BP 111/73; PULSE 94; RESP 18; TEMP 36.7; O2SAT 94
--- NOTE | 2022-07-05 11:36 | PM.DS ---
DS: Providers Provider Date of Service: 07/05/22 Date of admission: 07/03/22 17:10 Primary care physician: Miranda Maravilla DO Consults: 07/03/22 17:09 Consult to Cardiology Routine Consulting Provider: [facility] Cardiovascular Services Reason for consultation: CHF Has provider been notified: Yes 07/04/22 12:04 Consult to Pulmonology Routine Consulting Provider: [facility] Pulmonology Services Reason for consultation: praneeth Has provider been notified: No DS: Diagnosis Discharge Diagnosis (1) Acute on chronic right heart failure: Status: Acute (2) Morbid obesity: Status: Acute (3) PRANEETH (obstructive sleep apnea): Status: Acute (4) Intellectual disability: Status: Acute DS: Summary Hospital Course Hospital Course: HP as per admitting provider 47 year old women presenting with increased shortness of breath, fever an generalized feeling of unwellness.? Her mother is her primary caregiver.? Apparently she has been sleeping excessively and reporting to her family shortness of breath on exertion.? She is on 2 L nasal cannula at home and apparently her pulse oximetry was reading 59%.? Her family also reported increased lower extremity edema over the last several weeks.? She had been on torsemide for which she started a few months ago but that does not seem to be working.? BNP noted to be mildly elevated 635, COVID, flu and RSV negative, chronically elevated pCO2, compensated VBG.? Placed on OxyMask.? Given IV Lasix, Rocephin for lower extremity cellulitis.? Will admit for further management and treatment of acute on chronic respiratory failure secondary to congestive heart failure . HFpEF secondary to PRANEETH. Resolved Treated with Lasix IV BID. Continue medications Seen evaluated by Cardiology RLE cellulitis Treated with IV capsule, 4 more days of doxycycline Morbid obesity.? BMI 45.4 Discussed importance of weight management as this may be contributing to worsening of other comorbidities Mental Health/intellectual disability Continue home medications Obstructive sleep apnea. Untreated Plan for sleep study this evening, will need CPAP/BiPAP Time Spent with Patient Time attestation: Total time managing care of this patient today ____ minutes. Discharge coordination time: Greater than 30 minutes Quality: Safe Use of Opioids Does Pt have an Active Cancer Diagnosis on the Problem List?: No Quality: Stroke Does the patient have a stroke diagnosis?: No Physical Exam Vital Signs: Vital Signs: Last Vital Signs Temp 98.0 F 07/05/22 11:05 Pulse 94 07/05/22 11:05 Resp 18 07/05/22 11:05 BP 111/73 07/05/22 11:05 Pulse Ox 94 07/05/22 11:05 O2 Del Method Nasal Cannula 07/05/22 11:05 O2 Flow Rate 2 07/05/22 11:05 Oxygen Flow Rate 2 07/03/22 11:26 BMI result Body Mass Index 44.8 Appearing in no acute distress head is normocephalic atraumatic eyes pupils are PERRLA sclera is anicteric mouth throat mucous membranes are intact and moist neck is supple no lymphadenopathy, no JVD noted lung sounds are clear to auscultation heart regular rate rhythm, clear S1, S2 positive bowel sounds, abdomen is soft, nontender neuro patient is alert x3, no focal deficits Mild erythema to right lower extremity DS: Data Data Completed and Pending Labs on day of discharge: Laboratory Results - last 24 hr 07/05/22 07/05/22 08:26 09:52 VBG pH 7.46 H VBG pCO2 63 VBG pO2 133 VBG HCO3 46 H VBG O2 Saturation 100.0 VBG Base Excess 18.7 Sodium 141 Potassium 3.9 Chloride 94 L Carbon Dioxide 38 H Anion Gap 13 BUN 11 Creatinine 0.71 Estim Creat Clear Calc 115.3 Estimated GFR > 60 Random Glucose 113 Calcium 8.8 Preliminary micro results at discharge 07/03/22 14:42 Blood Culture - Preliminary Blood - Venous No growth after 24 hours. 07/03/22 14:42 Blood Culture - Preliminary Blood - Venous No growth after 24 hours. Discharge Plan Discharge Anticipated Discharge Date/Time: 07/05/22 11:30 Patient Disposition: Home Health Service Discharge Diagnosis: Cellulitis PRANEETH untreated Acute on chronic congestive heart failure Acute on chronic respiratory failure Referrals: Miranda Maravilla DO [Primary Care Provider] - 1 Week Discharge Medications: New doxycycline hyclate 100 mg tablet 100 mg PO BID Qty: 8 0RF Continued ipratropium-albuterol 0.5 mg-3 mg(2.5 mg base)/3 mL solution for nebulization 3 ml inhalation TID Qty: 270 6RF white petrolatum 42 % ointment 1 ea topical BID PRN (Reason: Dry Skin) baclofen 10 mg tablet 0.5 - 1 tab PO BEDTIME PRN (Reason: muscle spasm) econazole 1 % cream 1 appl topical BID cetirizine 10 mg tablet 10 mg PO DAILY fluoxetine 20 mg capsule 20 mg PO DAILY naproxen 500 mg tablet 500 mg PO BID PRN (Reason: pain) trazodone 50 mg tablet 100 mg PO BEDTIME PRN (Reason: Insomnia) sennosides [senna] 8.6 mg tablet 2 tab PO BEDTIME PRN (Reason: constipation) albuterol sulfate 2.5 mg /3 mL (0.083 %) solution for nebulization 1 amp inhalation Q4H PRN (Reason: Shortness Of Breath) docusate sodium 100 mg capsule 1 cap PO BID PRN (Reason: Constipation) fluticasone propionate 50 mcg/actuation spray,suspension 2 spray intranasal DAILY lamotrigine 100 mg tablet 100 mg PO DAILY albuterol sulfate [Ventolin HFA] 90 mcg/actuation HFA aerosol inhaler 2 puff inhalation Q4H PRN (Reason: shortness of breath or wheezing) aripiprazole 5 mg tablet 5 mg PO DAILY Advair HFA 230-21 mcg/actuation HFA aerosol inhaler 2 puff inhalation BID arformoterol [Brovana] 15 mcg/2 mL solution for nebulization 2 ml inhalation BID torsemide 20 mg tablet 20 mg PO DAILY 30 Days Qty: 30 6RF Discharge Orders: Discharge Order (Routine); Ordered 07/05/22 Ordered By: Shyanne Logan Diet: Advance to usual diet Activity on Discharge: As tolerated Stand Alone Forms: Patient Portal Discharge page Care Plan Goals: Will need CPAP/BiPAP machine, referral after sleep study Health Concerns: Cellulitis Obstructive sleep apnea, untreated Acute on chronic congestive heart failure Acute on chronic respiratory failure Plan of Treatment: Follow-up with primary care provider as needed Follow-up with previously said scheduled sleep study appointment this evening Take all medications as prescribed Assessment: See discharge summary
--- NOTE | 2022-07-05 11:41 | MHC.CM.PN ---
Patient has been medically cleared for dc to home today, self care;All services [facility] BRUSHER should resume as before.
[2022-07-05 11:44] VITALS: PULSE 100; RESP 18; O2SAT 94
== END 2022-07-05 13:59 | disposition home or self-care (01) | DRG 194 ==
LOC: HO.ED 15:44 → HO.EDOVER 17:34 → HO.IMC 17:36
PROVIDERS: Internal Medicine; Physician Assistant; Admitting Provider Nurse Practitioner Acute Care; Emergency Provider Student in an Organized Health Care Education/Training Program; PCP Family Medicine; Visit Provider Nurse Practitioner Acute Care
DX: I50.33 Acute on chronic diastolic (congestive) heart failure (principal); J96.20 Acute and chronic respiratory failure, unspecified whether with hypoxia or hypercapnia; Z99.81 Dependence on supplemental oxygen; I50.813 Acute on chronic right heart failure; L03.115 Cellulitis of right lower limb; E66.01 Morbid (severe) obesity due to excess calories; Z68.42 Body mass index [BMI] 45.0-49.9, adult; J45.50 Severe persistent asthma, uncomplicated; F79 Unspecified intellectual disabilities; Z20.822 Contact with and (suspected) exposure to COVID-19; Z79.51 Long term (current) use of inhaled steroids; Z79.899 Other long term (current) drug therapy
CPT/HCPCS: 0241U; 36415; 71045; 71275; 80048; 80053; 82803; 83605; 83880; 84484; 85025; 85610; 85730; 87040; 93005; 93306; 93971; 94640; 99222; 99285; J0690; J0696; J1643; J1940; Q9957; Q9967

== ENCOUNTER → 2022-07-05 22:24 | Outpatient (REF) | payer MEDICAID, SELFPAY | LOC: HO.SL 22:24 | PROVIDERS: PCP Family Medicine; Visit Provider Internal Medicine Pulmonary Disease | DX: G47.33 Obstructive sleep apnea (adult) (pediatric) (principal) | CPT/HCPCS: 95810 ==

== ENCOUNTER 2022-07-16 06:40 | Inpatient (IN) | payer MEDICAID, SELFPAY ==
[2022-07-16] VITALS (13 sets, daily range): BP systolic 108–128; BP diastolic 65–78; PULSE 85–104; RESP 16–22; TEMP 36.6–37; O2SAT 90–100; BMI 42.8; BMI 43.1
--- NOTE | ~2022-07-16 | XR_ITS ---
EXAMINATION: XR CHEST CLINICAL INFORMATION: Shortness of breath COMPARISON: 07/03/2022 TECHNIQUE: Frontal view of the chest was obtained. FINDINGS: Lungs are mildly hypoinflated and grossly clear. No consolidation, pleural effusion or pneumothorax. The mildly enlarged cardiomediastinal silhouette has stable size and contour compared to 07/03/2022. There is stable prominence of the main/central pulmonary arteries which could be a manifestation of arterial hypertension. There is intact appearance of the thoracic spinal fusion hardware. XR/XR chest 1V IMPRESSION: * No acute pulmonary disease compared to 07/03/2022. * Mild cardiomegaly without acute pulmonary edema or pleural effusion.
--- NOTE | ~2022-07-16 | XR_ITS ---
EXAMINATION: XR CHEST CLINICAL INFORMATION: Question bronchitis. COMPARISON: Chest 07/16/2022. TECHNIQUE: Frontal view of the chest was obtained. FINDINGS: The lungs are well expanded and clear. The heart size is enlarged. Pulmonary vascularity is normal. There is mild perihilar peribronchial wall thickening suggestive of small airway disease. There are 2 Aguayo rods in thoracic spine with mild dextroscoliosis. XR/XR chest 1V IMPRESSION: 1. Mild perihilar peribronchial wall thickening suggestive of small airway disease. 2. Mild cardiomegaly.
--- NOTE | ~2022-07-16 | US_ITS ---
EXAMINATION: US VENOUS ULTRASOUND WITH DOPPLER LOWER EXTREMITY, BILATERAL CLINICAL INFORMATION: Edema, pain. COMPARISON: None available. TECHNIQUE: Ultrasound of the deep veins is performed from the hip to the calf with compression sonography and color and pulse Doppler assessment. Spectral analysis with color-flow imaging is performed. FINDINGS: RIGHT: Exam somewhat limited due to patient's body habitus. There is normal venous compression and respiratory variation and augmented flow. The visualized common femoral vein, superficial femoral vein, profunda femoral vein, popliteal vein, and the trifurcation region shows no evidence of deep venous thrombosis. There is no significant popliteal fossa cyst. Right peroneal vein was not well visualized. LEFT: There is normal venous compression and respiratory variation and augmented flow. The visualized common femoral vein, superficial femoral vein, profunda femoral vein, popliteal vein, and the trifurcation region shows no evidence of deep venous thrombosis. There is no significant popliteal fossa cyst. If the patient's symptoms persist, followup ultrasound in 5 days 7 days might be of value to exclude proximal propagation from a non-visualized calf vein. US/US venous duplex LE BI IMPRESSION: No DVT demonstrated in the both right and left lower extremities. Exam limited by patient's body habitus.
--- NOTE | 2022-07-16 06:56 | ECG_ITS ---
Test Reason : SOB Blood Pressure : / mmHG Vent. Rate : 100 BPM Atrial Rate : 100 BPM P-R Int : 118 ms QRS Dur : 088 ms QT Int : 358 ms P-R-T Axes : 046 100 001 degrees QTc Int : 461 ms Normal sinus rhythm Rightward axis Borderline ECG When compared with ECG of 03-JUL-2022 11:43, T wave inversion no longer evident in Anterior leads Referred By: Beatriz Garcia Electronically Signed By:Parviz Gates
--- NOTE | 2022-07-16 06:57 | PC.NURSE ---
Patient RACHELLE from home. Patient is [place] speaking female, woke up this morning feeling SOB, O2 Sat in low 80's on supplemental O2 at 2 LPM when checked by family. Family contacted EMS, when EMS arrived patient's O2 Sat 87-90 on 2 LPM-O2 dropped to mid 60's-70's when [facility]. EMS applied non-rebreather, patient arrived to ED saturating 97-98%. RT at bedside assessed [id number] removed. Patient placed on NC at 3 LPM with O2 Sat 97-98%. EKG performed by commercial service technician.VSS. [ End ]
--- NOTE | 2022-07-16 07:33 | ED.GENADULT ---
HPI - General Adult General Chief complaint: Dyspnea Stated complaint: difficulty breathing Time Seen by Provider: 07/16/22 07:09 Source: patient, family (Mother.) and it admin Mode of arrival: ambulatory Limitations: no limitations History of Present Illness HPI narrative: 47-year-old female with intellectual disability mother is a caregiver and provided history, came in with a concern low oxygen reading on the pulse oximetry at home this morning patient also was not acting herself had urinary incontinence was very unusual for the patient, patient normally with 2 L of supplemental oxygen when needed at home, patient also was slightly unresponsive when mother tried to wake her up, patient had O2 sat reading of 59%. Related Data Home Medications Medication Instructions Recorded Confirmed baclofen 10 mg tablet 0.5 - 1 tab PO BEDTIME PRN muscle 10/27/21 07/16/22 spasm econazole 1 % topical cream 1 appl topical BID 10/27/21 07/16/22 white petrolatum 42 % topical 1 ea topical BID PRN Dry Skin 10/27/21 07/16/22 ointment cetirizine 10 mg tablet 10 mg PO DAILY 01/18/22 07/16/22 fluoxetine 20 mg capsule 20 mg PO DAILY 01/18/22 07/16/22 naproxen 500 mg tablet 500 mg PO BID PRN pain 01/18/22 07/16/22 trazodone 50 mg tablet 100 mg PO BEDTIME PRN Insomnia 01/18/22 07/16/22 albuterol sulfate 2.5 mg/3 mL 1 amp inhalation Q4H PRN Shortness 04/05/22 07/16/22 (0.083 %) solution for nebulization Of Breath albuterol sulfate 90 mcg/actuation 2 puff inhalation Q4H PRN 04/05/22 07/16/22 aerosol inhaler (Ventolin HFA) shortness of breath or wheezing docusate sodium 100 mg capsule 1 cap PO BID PRN Constipation 04/05/22 07/16/22 fluticasone propionate 50 2 spray intranasal DAILY 04/05/22 07/16/22 mcg/actuation nasal spray,suspension lamotrigine 100 mg tablet 100 mg PO DAILY 04/05/22 07/16/22 sennosides 8.6 mg tablet (senna) 2 tab PO BEDTIME PRN constipation 04/05/22 07/16/22 arformoterol 15 mcg/2 mL solution 2 ml inhalation BID 07/03/22 07/16/22 for nebulization (Brovana) aripiprazole 5 mg tablet 5 mg PO DAILY 07/03/22 07/16/22 fluticasone propionate 230 2 puff inhalation BID 07/03/22 07/16/22 mcg-salmeterol 21 mcg/actuation HFA inhaler (Advair HFA) Previous Rx's Medication Instructions Recorded ipratropium 0.5 mg-albuterol 3 mg 3 ml inhalation TID #270 mL 12/19/21 (2.5 mg base)/3 mL nebulization soln torsemide 20 mg tablet 20 mg PO DAILY 30 days #30 tabs 04/11/22 Allergies Allergy/AdvReac Type Severity Reaction Status Date / Time No Known Allergies Allergy Unknown Verified 04/11/22 13:24 [No Known Allergies*] Review of Systems Review of Systems: All other systems are reviewed and are negative Constitutional: Reports as per HPI and Reports no additional constitutional complaints Eyes: Reports as per HPI and Reports no additional eye complaints Reports system reviewed and no additional complaints, except as documented Cardiovascular: Reports as per HPI and Reports no additional cardiovascular complaints Respiratory: Reports as per HPI and Reports no additional respiratory complaints Gastrointestinal: Reports as per HPI and Reports no additional gastrointestinal complaints Genitourinary: Reports no additional female genitourinary complaints Musculoskeletal: Reports no additional musculoskeletal complaints Skin/Breast: Reports system reviewed and no additional complaints, except as docu Psychiatric: Reports no additional psychiatric complaints Endocrine: Reports no additional endocrine complaints Hematologic/Lymphatic: Reports no additional hematologic/lymphatic complaints Allergic/Immunologic: Reports no additional allergic/immunologic complaints Reports system reviewed and no additional complaints, except as documented and Reports Abnormal speech present [facility] Past Medical History Medical History Asthma Intellectual disability Intellectual disability Morbid obesity GEORGE (obstructive sleep apnea) Oxygen desaturation during sleep Sleep apnea Status post repair of fracture of orbit Surgical History History of esophagogastroduodenoscopy (EGD) History of open reduction and internal fixation (ORIF) procedure Status post spinal surgery Family History Family History Mother Diabetes Hypertension Father Hypertension Social History Social History Household Members: Family Housing: House Do you presently have visiting nurse or other home services: Yes Alcohol intake: never Patient Tobacco Use Status: Never used Tobacco Smoked in Last 30 Days: No Use of substances other than those prescribed or required for medical reasons: No Advance Directives: No Advance Directives Information Provided: Yes service: No Current occupational status: disabled Physical Exam ED Vital Signs: Vital Signs - 24 hr 07/16/22 06:48 07/16/22 07:34 07/16/22 10:09 Temperature 98.2 F 98.2 F 98.4 F Pulse Rate 104 H 92 94 Respiratory Rate 20 22 H 20 Blood Pressure 113/71 108/75 117/78 Pulse Oximetry 96 98 95 Oxygen Delivery Method Nasal Cannula Nasal Cannula Room Air Aerosol Mask Oxygen Flow Rate 3 2 07/16/22 11:49 07/16/22 12:00 07/16/22 13:05 Temperature Pulse Rate 90 Respiratory Rate 19 16 18 Blood Pressure 121/78 Pulse Oximetry 100 Oxygen Delivery Method BiPAP Oxygen Flow Rate 07/16/22 14:00 Temperature Pulse Rate 92 Respiratory Rate 20 Blood Pressure 108/67 Pulse Oximetry 94 Oxygen Delivery Method High Flow Nasal Cannula Oxygen Flow Rate 30 BMI result Body Mass Index 42.8 Vital signs have been reviewed as appeared to be correct. Blood pressure normal. Heart rate normal. Respiration rate normal. Temperature normal. Oxygen saturation normal. Appearance: Alert. No acute distress. Head: Normal external exam. Normocephalic. Atraumatic. No Rodriguez signs noted. No raccoon eyes noted Eyes: PERRLA. EOMI. Conjunctiva and sclera normal. Eyelids normal. ENT: TM's Normal. Pharynx normal. Uvula midline. Moist mucous membranes. No trismus noted. No drooling noted. No muffled voice noted. Neck: Normal inspection. Neck supple. FROM. No adenopathy. Thyroid Normal. No meningeal signs. No neck mass noted. CVS: Normal heart rate and rhythm. Heart sound normal. No murmurs noted. Pulses normal throughout. Respiratory: No respiratory distress. Painless inspiration. Breath sounds normal. No wheezes/rales/rhonchi noted. Chest nontender. No accessory muscle usage noted or decreased air movement noted. Abdomen: Soft and nontender. Bowel sounds normal in all 4 quadrants. No distention noted. No organomegaly noted. No visible injury noted. Back: No CVA tenderness. Full range of motion noted. Skin: Skin warm and dry. Normal skin color. Normal skin turgor. No rashes/lesions/lacerations noted. Extremities: No lower extremity edema. Extremities exhibit normal range of motion. Extremities nontender. Neuro. Cranial nerve exam: II-XII are grossly intact No motor deficit. No sensory deficit. Reflexes normal. Course Course Course Narrative: 47-year-old female history of sleep apnea, right-sided CHF, asthma use supplemental oxygen 2 L at home found to be hypoxic, patient is showing chronic hypercarbia with pH of 7.47 and increases bicarb which appear to be a chronic compensatory no need to acute intervention, patient is been hypoxic improving with supplemental oxygen there is no clear etiology for patient's symptoms but patient had previous presentation which is similar to this presentation Medical Decision Making Differential Diagnosis Differential Diagnoses: The differential diagnosis associated with the presentation includes (Pneumonia, hypercarbia, hypoxia.) Admission/Observation Consideration of admission/observation: Escalation of care including admission/observation considered Consult Healthcare Provider Management of the patient was discussed with: Hospitalist Lab Data MDM Lab Attestation statement: I reviewed the patient's lab results. 07/16/22 07:29 07/16/22 07:29 Labs: Lab Results 07/16/22 07/16/22 07/16/22 Range/Units 07:29 07:29 07:29 WBC 11.6 H (4.8-10.8) X10*3/uL RBC 6.17 H (4.20-5.50) X10*6/uL Hgb 11.5 L (12.0-16.0) g/dl Hct 43.5 (37.0-47.0) % MCV 70.5 L (80.0-98.0) fL MCH 18.6 L (27.0-33.0) pg MCHC 26.4 L (31.0-35.0) g/dl RDW 22.3 H (11.0-16.0) % Plt Count 241 (160-400) X10*3/uL MPV Not Reportable Immature Gran % (Auto) 0.5 H (0.0-0.4) % Neut % (Auto) 85.6 H (45-73) % Lymph % (Auto) 6.4 L (20-40) % Noble % (Auto) 6.2 (2-11) % Eos % (Auto) 1.0 (0-4) % Baso % (Auto) 0.3 (0-2) % Lymph # (Auto) 0.8 L (1.2-4.9) X10*3/uL Noble # (Auto) 0.7 (0.1-1.2) X10*3/uL Eos # (Auto) 0.1 (0.0-0.4) X10*3/uL Baso # (Auto) 0.0 (0.0-0.2) X10*3/uL Abs Immat Gran (auto) 0.06 H (0.00-0.03) X10*3/uL Absolute Neuts (auto) 10.0 H (2.0-8.3) x10*3/uL Absolute Nucleated RBC 0.000 (0.0-0.012) X10*3/uL Nucleated RBC % (auto) 0.0 (0.0-0.2) /100WBC Smear Tech's Comments VERIFIED PT (10.0-13.1) SEC INR (0.9-1.1) O2 Saturation % ABG pH at Pt Temp (7.35-7.45) ABG pCO2 at Pt Temp (32-45) mmHg ABG pO2 at Pt Temp (83-108) mmHg ABG HCO3 (22-26) mmol/L ABG Base Excess (Actual) mmol/L Sodium (135-145) mmol/L Potassium (3.3-5.1) mmol/L Chloride (96-108) mmol/L Carbon Dioxide (22-29) mmol/L Anion Gap (12-20) BUN (9-16) mg/dL Creatinine (0.5-1.4) mg/dL Estim Creat Clear Calc Estimated GFR Random Glucose (60-115) mg/dL Calcium (8.4-10.2) mg/dL Total Bilirubin (0.0-1.0) mg/dL AST (5-31) U/L ALT (0-31) U/L Alkaline Phosphatase (39-117) U/L B-Natriuretic Peptide 381 H (<100) pg/mL Total Protein (6.5-8.0) g/dL Albumin (3.5-5.0) g/dL COVID-19 (TANIYA) Negative (Negative) COVID-19 Clin Com See Note 07/16/22 07/16/22 07/16/22 Range/Units 07:29 07:29 09:13 WBC (4.8-10.8) X10*3/uL RBC (4.20-5.50) X10*6/uL Hgb (12.0-16.0) g/dl Hct (37.0-47.0) % MCV (80.0-98.0) fL MCH (27.0-33.0) pg MCHC (31.0-35.0) g/dl RDW (11.0-16.0) % Plt Count (160-400) X10*3/uL MPV Immature Gran % (Auto) (0.0-0.4) % Neut % (Auto) (45-73) % Lymph % (Auto) (20-40) % Noble % (Auto) (2-11) % Eos % (Auto) (0-4) % Baso % (Auto) (0-2) % Lymph # (Auto) (1.2-4.9) X10*3/uL Noble # (Auto) (0.1-1.2) X10*3/uL Eos # (Auto) (0.0-0.4) X10*3/uL Baso # (Auto) (0.0-0.2) X10*3/uL Abs Immat Gran (auto) (0.00-0.03) X10*3/uL Absolute Neuts (auto) (2.0-8.3) x10*3/uL Absolute Nucleated RBC (0.0-0.012) X10*3/uL Nucleated RBC % (auto) (0.0-0.2) /100WBC Smear Tech's Comments PT 14.5 H (10.0-13.1) SEC INR 1.3 H (0.9-1.1) O2 Saturation 80.0 % ABG pH at Pt Temp 7.46 H (7.35-7.45) ABG pCO2 at Pt Temp 66 H* (32-45) mmHg ABG pO2 at Pt Temp 53 L (83-108) mmHg ABG HCO3 47 H (22-26) mmol/L ABG Base Excess (Actual) 19.3 mmol/L Sodium 140 (135-145) mmol/L Potassium 4.0 (3.3-5.1) mmol/L Chloride 91 L (96-108) mmol/L Carbon Dioxide 40 H* (22-29) mmol/L Anion Gap 13 (12-20) BUN 15 (9-16) mg/dL Creatinine 0.82 (0.5-1.4) mg/dL Estim Creat Clear Calc 104.6 Estimated GFR > 60 Random Glucose 115 (60-115) mg/dL Calcium 9.2 (8.4-10.2) mg/dL Total Bilirubin 1.2 H (0.0-1.0) mg/dL AST 23 (5-31) U/L ALT 18 (0-31) U/L Alkaline Phosphatase 72 (39-117) U/L B-Natriuretic Peptide (<100) pg/mL Total Protein 6.9 (6.5-8.0) g/dL Albumin 3.8 (3.5-5.0) g/dL COVID-19 (TANIYA) (Negative) COVID-19 Clin Com ABG Data Attestation ABG: I personally reviewed and interpreted this ABG as follows: Independent Interpretation I performed an independent interpretation of an: Plain X-Ray (Chest: No acute pathology.) Radiology Impression Discussion of test interpretation with radiology: I have reviewed the radiologist's reading. Discharge Plan Discharge Clinical Impression: Oxygen desaturation during sleep, Asthma with exacerbation Patient Disposition: Admitted As Inpatient
[2022-07-16 07:34] LABS: Eosinophils Absolute Auto 0.1 X10*3/uL (0.0-0.4); SCAN SMEAR FLAG 1
[2022-07-16 07:36] LABS: PLT CLUMP 1
[2022-07-16 07:40] LABS: INTERNATIONAL NORM RATIO 1.3 (0.9-1.1); Mean Corpuscular Volume 70.5 fL (80.0-98.0); Prothrombin Time 14.5 SEC (10.0-13.1)
--- NOTE | 2022-07-16 07:40 | PC.NURSE ---
breath sounds clear yet diminished, breathing non-laboured, pt sat 92% on RA. no apparent distress, no pain reported.
[2022-07-16 07:42] LABS: Basophils Percent Auto 0.3 % (0-2); Hematocrit 43.5 % (37.0-47.0); Hemoglobin 11.5 g/dl (12.0-16.0); Imm Gran Abs Auto 0.06 X10*3/uL (0.00-0.03); Imm Gran Pct Auto 0.5 % (0.0-0.4); Lymphocytes Absolute Auto 0.8 X10*3/uL (1.2-4.9); Lymphocytes Percent Auto 6.4 % (20-40); Mean Corpuscular HGB Conc 26.4 g/dl (31.0-35.0); Mean Corpuscular Hemoglobin 18.6 pg (27.0-33.0); Monocytes Absolute Auto 0.7 X10*3/uL (0.1-1.2); Monocytes Percent Auto 6.2 % (2-11); Neutrophils Percent Auto 85.6 % (45-73); Red Blood Count 6.17 X10*6/uL (4.20-5.50); Red Cell Distribution Width 22.3 % (11.0-16.0)
[2022-07-16 07:44] LABS: PLT ABN DIST 1; Platelet Count 241 X10*3/uL (160-400); White Blood Count 11.6 X10*3/uL (4.8-10.8)
[2022-07-16 07:48] LABS: COVID-19 Test Negative (Negative); IDNOW Serial# BCCEAD1C
[2022-07-16 07:54] LABS: B Type Natriuretic Peptide 381 pg/mL (<100)
[2022-07-16 07:55] LABS: MANUAL DIFF FLAG SCAN
[2022-07-16 07:56] LABS: SLIDE REVIEW VERIFIED
[2022-07-16 07:58] LABS: Alanine Aminotransferase 18 U/L (0-31); Albumin Level 3.8 g/dL (3.5-5.0); Alkaline Phosphatase 72 U/L (39-117); Anion Gap 13 (12-20); Aspartate Amino Transferase 23 U/L (5-31); Bilirubin Total 1.2 mg/dL (0.0-1.0); Blood Urea Nitrogen 15 mg/dL (9-16); Calcium 9.2 mg/dL (8.4-10.2); Carbon Dioxide 40 mmol/L (22-29); Chloride 91 mmol/L (96-108); Creatinine Clr Calc Pharmacy 104.6; Estimated Glomerular Filt Rate > 60; Glucose Random 115 mg/dL (60-115); Sodium 140 mmol/L (135-145); Total Protein 6.9 g/dL (6.5-8.0)
--- NOTE | 2022-07-16 08:09 | PC.NURSE ---
pt not tolerating NC well, reporting the cannula to be itchy. consulted with Resp about an Oxymask. Oxymask applied 5L, sat 97%
[2022-07-16 09:26] LABS: ABG Base Excess 19.3 mmol/L; ABG HCO3 47 mmol/L (22-26); ABG pCO2 66 mmHg (32-45); ABG pH 7.46 (7.35-7.45); ABG pO2 53 mmHg (83-108)
[2022-07-16 09:27] LABS: ABG Refer to POC result
--- NOTE | 2022-07-16 10:35 | PC.NURSE ---
pt 93% on 3L O2 facemask. pt periodically desats to 70s O2, upon rousing pt and taking deep breadths, O2 returns to 90s
--- NOTE | 2022-07-16 11:28 | PC.NURSE ---
rt was called as the provider wished for the patient to be put on bipap, RT at bedside with provider, pt refusing bipap at this time, provider stated they will reattempt again shortly.
--- NOTE | 2022-07-16 11:34 | PC.NURSE ---
patient awake/alert- secured entrance monitor intact nsr, O2 96% on 3L oxymask, pt called this nurse to bedside and pointed to the bipap machine that she had initially refused, this nurse asked her if she was going to wear the bipap and she stated yes. This nurse notified the provider and also called respiratory to return to place the patient on bipap, family at bedside, call osorio within reach, will continue to monitor.
--- NOTE | 2022-07-16 12:03 | PC.NURSE ---
pt tolerating BiPAP well. lung sounds clear. call osorio within reach
--- NOTE | 2022-07-16 12:30 | PC.NURSE ---
pt refusing to keep BiPAP on, placed back on OxyMask 3L. Sat 92% MD aware
--- NOTE | 2022-07-16 12:46 | PC.NURSE ---
Resp placed pt on High Flow. tolerating well. Sat 98%
--- NOTE | 2022-07-16 13:33 | PHA.MEDREC ---
Pharmacy Consult ? Medication Reconciliation Pharmacy has completed the medication reconciliation. Patient was here less than two weeks ago and was uncooperative with [facility] at that time. Patient did not know what meds she take and the family was unclear. Completed using claim history and discharge summary Ghanshyam
--- NOTE | 2022-07-16 14:04 | PC.NURSE ---
pt sleeping, parents at bedside. high flow O2 running 30 lpm. Sats stable 95+
--- NOTE | 2022-07-16 15:14 | P.HPHOSP_ITS ---
History of Present Illness Date of Service: 07/16/22 Attending physician on admission: Sandra Durham Chief Complaint: hypoxia, lethargic This is a 47-year-old female with underlying intellectual disability, obesity, asthma, moderate to severe persistent asthma, severe obstructive sleep apnea, supplemental oxygen dependency who was brought in to the ED for hypoxia. Patient has recent admission from July 03 to July 05 for heart failure. She has been using supplemental oxygen at 2 L with exertion. She had sleep study 07/05 for cpap titration but this was aborted due to inability of patient to sleep and therefore patient has not been able to start using CPAP. The plan was for her to use oxygen at night to maintain o2 satuaration above 90%. Today she was noted to desaturate into the 60s and was difficult to arouse so she was brought in for evaluation. Patient's family states that they try to monitor sodium intake, but patient likes to eat [place] food and [employer]. She is compliant with her medication. In the ED CXR showed no evidence of pneumonia or CHF. ABG and other lab work including BNP was at the patient's baseline. Due to hypoxia, she was placed on high flow oxygen and the decision was made to admit her to the hospital. The history was primarily obtained from the patient's parents at the bedside with assistance of a translator and interpreter. The patient was able to answer simple questions but her eyes remained closed and she primarily shook her head yes or no. Unable to obtain full ROS, but patient denies chest pain, abdominal pain. She does report pain in her right leg. Denies fever or chills. Parents report chronic dry cough. No recent sick contacts. No new medications. [facility] Medical History Asthma Intellectual disability Intellectual disability Morbid obesity GEORGE (obstructive sleep apnea) Oxygen desaturation during sleep Sleep apnea Status post repair of fracture of orbit Family History Mother Diabetes Hypertension Father Hypertension Surgical History History of esophagogastroduodenoscopy (EGD) History of open reduction and internal fixation (ORIF) procedure Status post spinal surgery Social History Household Members: Family Housing: House Do you presently have visiting nurse or other home services: Yes Alcohol intake: never Patient Tobacco Use Status: Never used Tobacco service: No Current occupational status: disabled Meds Allergies Allergy/AdvReac Type Severity Reaction Status Date / Time No Known Allergies Allergy Unknown Verified 04/11/22 13:24 [No Known Allergies*] Active Medications: Current Medications Acetaminophen (Acetaminophen 325 Mg Tablet) 650 mg PO Q6H PRN PRN Reason: Pain, Mild (Pain Scale 1-3) Albuterol Sulfate (Albuterol Sulfate (0.083%) 2.5 Mg/3 Ml Vial.Neb) mg INHALE Q4H PRN PRN Reason: Shortness Of Breath Albuterol/Ipratropium (Albuterol/Iprat 2.5/0.5mg 3 Ml Ampul.Neb) 3 ml INHALE RQ6H WHILE AWAKE [facility] Aripiprazole (Aripiprazole 5 Mg Tablet) 5 mg PO DAILY [facility] Docusate Sodium (Docusate Sodium 100 Mg Capsule) 100 mg PO DAILY PRN PRN Reason: Constipation Fluoxetine HCl (Fluoxetine Hcl 20 Mg Capsule) 20 mg PO DAILY [facility] Fluticasone Propionate (Fluticasone Propionate Nasal 16 Gm [place]) 2 spray NOSTRIL-B DAILY [facility] Heparin Sodium (Porcine) (Heparin Sodium,Porcine 5,000 Unit/Ml Vial) 5,000 unit SUBCUT Q12H [facility] Lamotrigine (Lamotrigine 100 Mg Tablet) 100 mg PO DAILY [facility] Methylprednisolone Sodium Succinate (Methylprednisolone Sod Succ 40 Mg/Ml Vial) 40 mg IVPUSH Q12H [facility] Non-Formulary Medication (Fluticasone Propion-Salmeterol [Advair Hfa]) 2 puff INHALE BID [facility] Non-Formulary Medication (White Petrolatum) 1 each TOPICAL BID PRN PRN Reason: Dry Skin Ondansetron HCl (Ondansetron Hcl 4 Mg/2 Ml Vial) 4 mg IVPUSH Q8H PRN PRN Reason: Nausea and Vomiting Pharmacy Consult (Consult Rx Perform Med Rec) 1 each MISCELLANE ONCE PRN PRN Reason: Consult order Senna (Sennosides 8.6 Mg Tablet) 17.2 mg PO BEDTIME PRN PRN Reason: constipation Sodium Chloride (0.9 % Sodium Chloride Flush 3 Ml Syringe) 3 ml IVFLUSH QSHIFT [facility] Torsemide (Torsemide 20 Mg Tablet) 20 mg PO DAILY [facility]; Protocol Home Medications Medication Instructions Recorded Confirmed Last Taken Type baclofen 10 mg tablet 0.5 - 1 tab PO BEDTIME PRN muscle 10/27/21 07/16/22 Unknown History spasm econazole 1 % topical cream 1 appl topical BID 10/27/21 07/16/22 04/05/22 History white petrolatum 42 % topical 1 ea topical BID PRN Dry Skin 10/27/21 07/16/22 Unknown History ointment cetirizine 10 mg tablet 10 mg PO DAILY 01/18/22 07/16/22 04/05/22 History fluoxetine 20 mg capsule 20 mg PO DAILY 01/18/22 07/16/22 04/05/22 History naproxen 500 mg tablet 500 mg PO BID PRN pain 01/18/22 07/16/22 Unknown History trazodone 50 mg tablet 100 mg PO BEDTIME PRN Insomnia 01/18/22 07/16/22 Unknown History albuterol sulfate 2.5 mg/3 mL 1 amp inhalation Q4H PRN Shortness 04/05/22 07/16/22 Unknown History (0.083 %) solution for nebulization Of Breath albuterol sulfate 90 mcg/actuation 2 puff inhalation Q4H PRN 04/05/22 07/16/22 Unknown History aerosol inhaler (Ventolin HFA) shortness of breath or wheezing docusate sodium 100 mg capsule 1 cap PO BID PRN Constipation 04/05/22 07/16/22 Unknown History fluticasone propionate 50 2 spray intranasal DAILY 04/05/22 07/16/22 04/05/22 History mcg/actuation nasal spray,suspension lamotrigine 100 mg tablet 100 mg PO DAILY 04/05/22 07/16/22 04/05/22 History sennosides 8.6 mg tablet (senna) 2 tab PO BEDTIME PRN constipation 04/05/22 07/16/22 Unknown History arformoterol 15 mcg/2 mL solution 2 ml inhalation BID 07/03/22 07/16/22 Unknown History for nebulization (Brovana) aripiprazole 5 mg tablet 5 mg PO DAILY 07/03/22 07/16/22 Unknown History fluticasone propionate 230 2 puff inhalation BID 07/03/22 07/16/22 Unknown History mcg-salmeterol 21 mcg/actuation HFA inhaler (Advair HFA) Physical Exam Vital Signs and Narrative: Vital Signs: Last Vital Signs Temp 98.4 F 07/16/22 10:09 Pulse 92 07/16/22 14:00 Resp 20 07/16/22 14:00 BP 108/67 07/16/22 14:00 Pulse Ox 94 07/16/22 14:00 O2 Del Method High Flow Nasal C annula 07/16/22 14:00 O2 Flow Rate 30 07/16/22 14:00 Oxygen Flow Rate 3 07/16/22 06:48 BMI result Body Mass Index 42.8 Const: Other: sleepy, shaking head yes or no, but doesn't open eyes. following commands Nutritional Appearance: obese Orientation/consciousness: oriented to person and oriented to place Resp: Other: diminished breath sounds; no wheezing, no rales Effort & Inspection: normal respiratory effort, no respiratory distress and no use of accessory muscles GI: Inspection: No distended and Yes obesity Palpation (GI): Soft to palpation and nontender Skin: Other: right lower extremity erythema and warmth. no open wounds or drainage Neuro: Other: following commands General: oriented to person and oriented to place Extrem: Other: Right leg swelling Results Labs 07/16/22 07:29 07/16/22 07:29 Labs: Laboratory Results - last 24 hr 07/16/22 07/16/22 07/16/22 07:29 07:29 07:29 MCV 70.5 L MCH 18.6 L MCHC 26.4 L RDW 22.3 H Plt Count 241 MPV Not Reportable Immature Gran % (Auto) 0.5 H Neut % (Auto) 85.6 H Lymph % (Auto) 6.4 L [place] % (Auto) 6.2 Eos % (Auto) 1.0 Baso % (Auto) 0.3 Lymph # (Auto) 0.8 L [place] # (Auto) 0.7 Eos # (Auto) 0.1 Baso # (Auto) 0.0 Abs Immat Gran (auto) 0.06 H Absolute Neuts (auto) 10.0 H Absolute Nucleated RBC 0.000 Nucleated RBC % (auto) 0.0 Smear Tech's Comments VERIFIED PT INR O2 Saturation ABG pH at Pt Temp ABG pCO2 at Pt Temp ABG pO2 at Pt Temp ABG HCO3 ABG Base Excess (Actual) Anion Gap Estim Creat Clear Calc Estimated GFR Random Glucose Calcium Total Bilirubin AST ALT Alkaline Phosphatase B-Natriuretic Peptide 381 H Total Protein Albumin COVID-19 (TANIYA) Negative COVID-19 Clin Com See Note 07/16/22 07/16/22 07/16/22 07:29 07:29 09:13 MCV MCH MCHC RDW Plt Count MPV Immature Gran % (Auto) Neut % (Auto) Lymph % (Auto) [place] % (Auto) Eos % (Auto) Baso % (Auto) Lymph # (Auto) [place] # (Auto) Eos # (Auto) Baso # (Auto) Abs Immat Gran (auto) Absolute Neuts (auto) Absolute Nucleated RBC Nucleated RBC % (auto) Smear Tech's Comments PT 14.5 H INR 1.3 H O2 Saturation 80.0 ABG pH at Pt Temp 7.46 H ABG pCO2 at Pt Temp 66 H* ABG pO2 at Pt Temp 53 L ABG HCO3 47 H ABG Base Excess (Actual) 19.3 Anion Gap 13 Estim Creat Clear Calc 104.6 Estimated GFR > 60 Random Glucose 115 Calcium 9.2 Total Bilirubin 1.2 H AST 23 ALT 18 Alkaline Phosphatase 72 B-Natriuretic Peptide Total Protein 6.9 Albumin 3.8 COVID-19 (TANIYA) COVID-19 Clin Com Imaging Radiologist's Impressions: Impressions Chest X-Ray 07/16/22 07:06 IMPRESSION: * No acute pulmonary disease compared to 07/03/2022. * Mild cardiomegaly without acute pulmonary edema or pleural effusion. Assessment and Plan (1) Acute on chronic respiratory failure with hypoxia and hypercapnia: Status: Acute Plan This is a 47-year-old female with underlying intellectual disability, obesity, asthma, moderate to severe persistent asthma, severe obstructive sleep apnea, supplemental oxygen dependency, recent admission for CHF who was brought in to the ED for hypoxia Acute on chronic respiratory failure with hypoxia and hypercarbia Likely multifactorial r/t untreated GEORGE, asthma, morbid obesity/obesity hypoventilation, sedating medications Uses 2L supplemental oxygen at baseline ABG with co2 66, somewhat above baseline Does not appear to be in heart failure. CXR negative, BNP lower then previous. Will give one dose of IV lasix and continue baseline torsemide Check ddimer, LE doppler. if ddimer elevated, will get CTA; CTA 07/03 negative for PE Check RPP solu-medrol, scheduled/prn breathing treatments currently on high flow o2, wean as tolerated Pulmonary consultation baclofen, trazodone on hold for now Right lower extremity cellulitis was treated for same on last admission will treat with IV kefzol US to rule out blood clot HFpEF one dose of IV lasix continue home torsemide low sodium diet mood continue abilify, fluoxetine, lamotrigine morbid obesity BMI 42.9 weight significant contributing factor to respiratory issues. this was discussed with family DVT ppx - heparin code status - full code Attending - Dr. Durham Patient will likely require two midnight stay in the hosptial for management of respiratory failure requiring high flow oxygen, close respiratory monitoring and specialist consultation Time Spent With Patient Time: Total time managing care of this patient today ____ minutes. Quality Stroke Does the patient have a stroke diagnosis?: No VTE Prior VTE?: No VTE Risk Level:: Medical - moderate - high VTE Device Contraindication: Treatment Not Indicated VTE Drug Contraindication: N/A - Med Ordered
[2022-07-16] MEDS: Furosemide 20 MG/2 ML VIAL IVPUSH (15:33)
[2022-07-16] MEDS: methylPREDNISolone Sod Succ 40 MG/ML VIAL IVPUSH (15:36)
--- NOTE | 2022-07-16 15:36 | PM.EVENT ---
Event Note Date of Service: 07/16/22 Event Note: This patient is seen and examined with APC. Patient has intellectual disability, asthma history at least moderate persistent, GEORGE question, oxygen dependent use is around 2 L at home. Patient came to the hospital because of low saturations, found to be hypoxic, patient has these intermittent as per family , today patient's saturation was trending low as per ED documentation was in 59%, patient was also somewhat lethargic initially as per the family: Brought to the ED-? Patient was placed on high-flow in ED. Last time patient was treated for CHF, concurrently patient BNP is lower, not significant leg edema or any trials on the chest exam and chest x-ray seems totally clear. Though patient had told -she noncompliant with the diet she likes [place] and [employer] food. She was supposed to get a machine for question sleep apnea(? CPAP but she did get it yet as per the family). Patient denies any cough or phlegm or any chest pain or any nausea or vomiting or any dizziness . Lab imaging, abg, EKG reviewed. CBC showed mild leukocytosis, BMP seems fine except bicarb is 40, BNP 381 ABG: PH compensated, CO2 is elevated slightly from baseline. Physical exam: Right leg has mild erythema and warm/mild pain also present. Lung sounds are diminished at bases, patient cannot take very good the breaths, did not hear any rales or rhonchi. Rest of Physical exam and assessment and plan coordinated in APCs note, Agree with the plan in addition: Acute hypoxemic/hypercarbic respiratory failure seems question multifactorial patient has history of ?george/moderate perssistent asthma , but has significant hypoxia Continue nebs, steroids, supplemental oxygen, res panel,discussed with pulmonary: ? with this degree of hypoxia will check D-dimer, b/l lower ext dupplex If D-dimer elevated we will get the further evaluation with CTA. Currently patient is on 40% oxygen and 30 L [id number] are in 96% we have asked the respiratory to taper oxygen if possible. Lower extremity cellulitis right-sided: Start cefazolin. Time Spent With Patient Time: Total time managing care of this patient today ____ minutes.
[2022-07-16] MEDS: Heparin Sodium,Porcine 5,000 UNIT/ML VIAL 5000 UNIT SUBCUT (15:39)
--- NOTE | 2022-07-16 15:44 | PC.NURSE ---
pt medicated, family at bedside. high flow O2 running 30 lpm, 02 sat 97%. pt resting.
[2022-07-16] MEDS: 0.9 % Sodium Chloride Flush 3 ML SYRINGE IVFLUSH (15:51)
[2022-07-16 16:21] LABS: D Dimer High Sensitivity 230 NG/ML
--- NOTE | 2022-07-16 16:55 | PC.NURSE ---
report given to RN on IMC
--- NOTE | 2022-07-16 17:22 | PC.NURSE ---
RT called to assist transport to bring patient to c
[2022-07-16] MEDS: Albuterol/Iprat 2.5/0.5MG 3 ML AMPUL.NEB INHALE (19:48)
[2022-07-17] VITALS (15 sets, daily range): BP systolic 107–129; BP diastolic 54–67; PULSE 67–106; RESP 14–20; TEMP 36.1–36.4; O2SAT 90–98
[2022-07-17] MEDS: 0.9 % Sodium Chloride Flush 3 ML SYRINGE IVFLUSH ×4 (01:05→23:57)
[2022-07-17] MEDS: Heparin Sodium,Porcine 5,000 UNIT/ML VIAL 5000 UNIT SUBCUT ×2 (04:49→16:32)
[2022-07-17] MEDS: methylPREDNISolone Sod Succ 40 MG/ML VIAL IVPUSH ×2 (04:49→16:30)
[2022-07-17 07:49] LABS: B Type Natriuretic Peptide 338 pg/mL (<100)
[2022-07-17 07:52] LABS: Anion Gap 12 (12-20); Blood Urea Nitrogen 11 mg/dL (9-16); Calcium 9.1 mg/dL (8.4-10.2); Carbon Dioxide 37 mmol/L (22-29); Chloride 95 mmol/L (96-108); Creatinine Clr Calc Pharmacy 116.3; Estimated Glomerular Filt Rate > 60; Glucose Random 125 mg/dL (60-115); Potassium 5.2 mmol/L (3.3-5.1); Sodium 139 mmol/L (135-145)
[2022-07-17] MEDS: Fluticasone/Vilanterol 200/25 BLST.W.DEV 1 PUFF INHALE (08:22)
[2022-07-17] MEDS: Albuterol/Iprat 2.5/0.5MG 3 ML AMPUL.NEB INHALE ×3 (08:22→18:54)
[2022-07-17] MEDS: lamoTRIgine 100 MG TABLET PO (09:14)
[2022-07-17] MEDS: Acetaminophen 325 MG TABLET 650 MG PO (09:14)
[2022-07-17] MEDS: Torsemide 20 MG TABLET PO (09:15)
[2022-07-17] MEDS: ARIPiprazole 5 MG TABLET PO (09:15)
[2022-07-17] MEDS: Fluticasone Propionate Nasal 16 GM SPRAY 2 SPRAY NOSTRIL-B (09:15)
[2022-07-17] MEDS: FLUoxetine HCl 20 MG CAPSULE PO (09:15)
--- NOTE | 2022-07-17 10:32 | MHC.CM.PN ---
D/C plan home, pending further evaluation of CPAP vs BIPAP. 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 Met with pt and her Mother/Guardian, Father and Brother/SENIOR RESEARCH PROJECT MANAGER at home. Pt dependent with care, she uses a walker. Family reports pt goes to [facility] day program M-F 8am-2:15pm and they are hoping to have her back home and to be able to return to her day program which she loves. Family to transport pt. PCP: Miranda Maravilla Vax: x [phone]
--- NOTE | 2022-07-17 11:05 | P.PNIM_ITS ---
Subjective Subjective Date of Service: 07/17/22 Review of Systems Follow up Resp failure on high flow no complaints of pain or discomfort Physical Exam Vital Signs: Vital Signs: Last Vital Signs Temp 97.6 F 07/17/22 08:00 Pulse 99 07/17/22 08:40 Resp 18 07/17/22 09:36 BP 107/62 07/17/22 08:00 Pulse Ox 92 07/17/22 08:00 O2 Del Method High Flow Nasal C annula 07/17/22 08:00 O2 Flow Rate 30 07/17/22 08:00 FiO2 30 07/17/22 08:00 Oxygen Flow Rate 3 07/16/22 06:48 BMI result Body Mass Index 43.1 Appearing in no acute distress, developmentally delayed lung sounds are clear to auscultation heart regular rate rhythm, clear S1, S2 positive bowel sounds, abdomen is soft, nontender neuro patient is alert x3, no focal deficits Objective Data Active Medications Acetaminophen (Acetaminophen 325 Mg Tablet) 650 mg PO Q6H PRN PRN Reason: Pain, Mild (Pain Scale 1-3) Last Admin: 07/17/22 09:14 Dose: 650 mg Documented By: MAURI Albuterol Sulfate (Albuterol Sulfate (0.083%) 2.5 Mg/3 Ml Vial.Neb) 2.5 mg INHALE Q4H PRN PRN Reason: Shortness Of Breath Albuterol/Ipratropium (Albuterol/Iprat 2.5/0.5mg 3 Ml Ampul.Neb) 3 ml INHALE RQ6H WHILE AWAKE [facility] Last Admin: 07/17/22 08:22 Dose: 3 ml Documented By: LOUIE Aripiprazole (Aripiprazole 5 Mg Tablet) 5 mg PO DAILY [facility] Last Admin: 07/17/22 09:15 Dose: 5 mg Documented By: MAURI Docusate Sodium (Docusate Sodium 100 Mg Capsule) 100 mg PO DAILY PRN PRN Reason: Constipation Fluoxetine HCl (Fluoxetine Hcl 20 Mg Capsule) 20 mg PO DAILY [facility] Last Admin: 07/17/22 09:15 Dose: 20 mg Documented By: MAURI Fluticasone Propionate (Fluticasone Propionate Nasal 16 Gm [place]) 2 spray NOSTRIL-B DAILY [facility] Last Admin: 07/17/22 09:15 Dose: 2 spray Documented By: MAURI Fluticasone/Vilanterol (Fluticasone/Vilanterol 200/25 Blst.W.Dev) 1 puff INHALE RDAILY [facility] Last Admin: 07/17/22 08:22 Dose: 1 puff Documented By: SCOVIKAREEM Heparin Sodium (Porcine) (Heparin Sodium,Porcine 5,000 Unit/Ml Vial) 5,000 unit SUBCUT Q12H [facility] Last Admin: 07/17/22 04:49 Dose: 5,000 unit Documented By: DARRIUS Cefazolin Sodium 1 gm/ Sodium (Chloride) 50 mls @ 100 mls/hr IV Q8H [facility] Last Infusion: 07/17/22 09:40 Dose: 0 mls/hr Documented By: MAURI Lamotrigine (Lamotrigine 100 Mg Tablet) 100 mg PO DAILY [facility] Last Admin: 07/17/22 09:14 Dose: 100 mg Documented By: MAURI Methylprednisolone Sodium Succinate (Methylprednisolone Sod Succ 40 Mg/Ml Vial) 40 mg IVPUSH Q12H [facility] Last Admin: 07/17/22 04:49 Dose: 40 mg Documented By: DARRIUS Multi-Ingred Cream/Lotion/Oil/Oint (Mineral Oil/Petrolatum,White 106 Gm Tube) 1 appl TOPICAL BID PRN PRN Reason: Dry Skin Ondansetron HCl (Ondansetron Hcl 4 Mg/2 Ml Vial) 4 mg IVPUSH Q8H PRN PRN Reason: Nausea and Vomiting Pharmacy Consult (Consult Rx Perform Med Rec) 1 each MISCELLANE ONCE PRN PRN Reason: Consult order Senna (Sennosides 8.6 Mg Tablet) 17.2 mg PO BEDTIME PRN PRN Reason: constipation Sodium Chloride (0.9 % Sodium Chloride Flush 3 Ml Syringe) 3 ml IVFLUSH QSHIFT [facility] Last Admin: 07/17/22 09:09 Dose: 3 ml Documented By: MAURI Torsemide (Torsemide 20 Mg Tablet) 20 mg PO DAILY [facility]; Protocol Last Admin: 07/17/22 09:15 Dose: 20 mg Documented By: MAURI Labs 07/16/22 07:29 07/17/22 07:19 Labs: Laboratory Results - last 24 hr 07/16/22 07/17/22 07/17/22 07:29 07:19 07:19 D-Dimer High Sensitivty 230 Anion Gap 12 Estim Creat Clear Calc 116.3 Estimated GFR > 60 Random Glucose 125 H Calcium 9.1 B-Natriuretic Peptide 338 H Assessment and Plan (1) Acute on chronic respiratory failure with hypoxia and hypercapnia: Status: Acute Plan This is a 47-year-old female with underlying intellectual disability, obesity, asthma, moderate to severe persistent asthma, severe obstructive sleep apnea, supplemental oxygen dependency, recent admission for CHF who was brought in to the ED for hypoxia Acute on chronic respiratory failure with hypoxia and hypercarbia multifactorial r/t untreated GEORGE, asthma, morbid obesity/obesity hypoventilation, sedating medications rsv, covid, flu neg Scheduled Solu-Medrol and DuoNebs currently on high flow o2, wean>[place] oxygen Pulmonary consultation, plan for overnight oximetry, cpap vs bipap on dc Right lower extremity cellulitis was treated for same on last admission will treat with IV kefzol No DVT on ultrasound HFpEF No acute exacerbation mood continue abilify, fluoxetine, lamotrigine morbid obesity BMI 42.9 Discussed importance of weight management as this may be contributing to worsening of other comorbidities DVT ppx - heparin code status - full code Attending - Dr. Grimaldo Continue hospitalization for treatment of respiratory failure requiring overnight pulse oximetry Time Spent With Patient Time: Total time managing care of this patient today ____ minutes. Quality Stroke Does the patient have a stroke diagnosis?: No VTE Prior VTE?: No VTE Risk Level:: Medical - moderate - high VTE Device Contraindication: Treatment Not Indicated VTE Drug Contraindication: N/A - Med Ordered
--- NOTE | 2022-07-17 11:43 | P.CONPL_ITS ---
History of Present Illness History of Present Illness Consult date: 07/17/22 Chief complaint: Respiratory failure Narrative: This is an inpatient pulmonary consultation. This is a 47-year-old female with underlying intellectual disability, obesity, asthma, moderate to severe persistent asthma, severe obstructive sleep apnea, supplemental oxygen dependency who was brought in to the ED for hypoxia.? Patient has recent admission from July 03 to July 05 for heart failure.? She has been using supplemental oxygen at 2 L with exertion. The patient had a recent in lab PSG with severe hypoxia and severe GEORGE with AHI of 70. The patient now presents with altered mental status and worsening hypoxia. The patient was brought back to the [facility] ED. There, her ABG demonstrated Acute on chronic hypoxia and hypercarbia. She was briefly placed on on BIPAP. Now using HF 30% 30L on the floor. She is doing better. But, she is special needs and is not able to give any additional details of her condition. I did review her PSG and she will need to undergo a titration study. But in the mean time we will start her a APAP on 2L oxygen while we wait for that study. Review of Systems Review of Systems: Yes all other systems are reviewed and are negative Constitutional: Constitutional: Reports as per HPI, Reports daytime sleepiness, Reports difficulty sleeping, Reports snoring and Reports stops breathing during sleep Eyes: Eyes: Reports as per HPI and Denies no additional eye complaints ENT: Denies system reviewed and no additional complaints, except as documented and Reports as per HPI Cardiovascular: Cardiovascular: Reports as per HPI, Reports no additional cardiovascular complaints, Denies acrocyanosis, Denies cool extremities, Denies chest pain, Reports pedal edema, Denies leg edema, Denies lightheadedness, Denies palpitations and Denies dyspnea Respiratory: Respiratory: Reports as per HPI, Denies no additional respiratory complaints, Denies dyspnea and Reports snoring Gastrointestinal: Gastrointestinal: Reports as per HPI and Denies no additional gastrointestinal complaints Genitourinary: Genitourinary: Reports as per HPI Musculoskeletal: Musculoskeletal: Reports no additional musculoskeletal complaints and Reports as per HPI Integumentary/Breasts: Skin/Breast: Reports system reviewed and no additional complaints, except as docu Neurologic: Reports system reviewed and no additional complaints, except as documented and Reports as per HPI Psychiatric: Psychiatric: Reports no additional psychiatric complaints and Reports as per HPI Endocrine: Endocrine: Reports no additional endocrine complaints, Reports as per HPI and Denies palpitations Hematologic/Lymphatic: Hematologic/Lymphatic: Reports no additional hematologic/lymphatic complaints and Reports as per HPI Allergic/Immunologic: Allergic/Immunologic: Reports no additional allergic/immunologic complaints and Reports as per HPI [facility] Past Medical History Medical History (Updated 07/17/22 @ 11:54 by Rob Logan MD) Asthma Intellectual disability Intellectual disability Morbid obesity GEORGE (obstructive sleep apnea) Oxygen desaturation during sleep Sleep apnea Status post repair of fracture of orbit Family History Family History Mother Diabetes Hypertension Father Hypertension Surgical History Surgical History History of esophagogastroduodenoscopy (EGD) History of open reduction and internal fixation (ORIF) procedure Status post spinal surgery Social History Social History Household Members: Family Housing: Apartment Do you presently have visiting nurse or other home services: Yes ([employer] 19 hours/week) Alcohol intake: never Patient Tobacco Use Status: Never used Tobacco service: No Current occupational status: disabled Meds Allergies Allergy/AdvReac Type Severity Reaction Status Date / Time No Known Allergies Allergy Unknown Verified 04/11/22 13:24 [No Known Allergies*] Active Medications: Current Medications Acetaminophen (Acetaminophen 325 Mg Tablet) 650 mg PO Q6H PRN PRN Reason: Pain, Mild (Pain Scale 1-3) Last Admin: 07/17/22 09:14 Dose: 650 mg Albuterol Sulfate (Albuterol Sulfate (0.083%) 2.5 Mg/3 Ml Vial.Neb) 2.5 mg INHALE Q4H PRN PRN Reason: Shortness Of Breath Albuterol/Ipratropium (Albuterol/Iprat 2.5/0.5mg 3 Ml Ampul.Neb) 3 ml INHALE RQ6H WHILE AWAKE [facility] Last Admin: 07/17/22 08:22 Dose: 3 ml Aripiprazole (Aripiprazole 5 Mg Tablet) 5 mg PO DAILY [facility] Last Admin: 07/17/22 09:15 Dose: 5 mg Docusate Sodium (Docusate Sodium 100 Mg Capsule) 100 mg PO DAILY PRN PRN Reason: Constipation Fluoxetine HCl (Fluoxetine Hcl 20 Mg Capsule) 20 mg PO DAILY [facility] Last Admin: 07/17/22 09:15 Dose: 20 mg Fluticasone Propionate (Fluticasone Propionate Nasal 16 Gm [place]) 2 spray NOSTRIL-B DAILY [facility] Last Admin: 07/17/22 09:15 Dose: 2 spray Fluticasone/Vilanterol (Fluticasone/Vilanterol 200/25 Blst.W.Dev) 1 puff INHALE RDAILY [facility] Last Admin: 07/17/22 08:22 Dose: 1 puff Heparin Sodium (Porcine) (Heparin Sodium,Porcine 5,000 Unit/Ml Vial) 5,000 unit SUBCUT Q12H [facility] Last Admin: 07/17/22 04:49 Dose: 5,000 unit Cefazolin Sodium 1 gm/ Sodium (Chloride) 50 mls @ 100 mls/hr IV Q8H [facility] Last Infusion: 07/17/22 09:40 Dose: Infused Lamotrigine (Lamotrigine 100 Mg Tablet) 100 mg PO DAILY [facility] Last Admin: 07/17/22 09:14 Dose: 100 mg Methylprednisolone Sodium Succinate (Methylprednisolone Sod Succ 40 Mg/Ml Vial) 40 mg IVPUSH Q12H [facility] Last Admin: 07/17/22 04:49 Dose: 40 mg Multi-Ingred Cream/Lotion/Oil/Oint (Mineral Oil/Petrolatum,White 106 Gm Tube) 1 appl TOPICAL BID PRN PRN Reason: Dry Skin Ondansetron HCl (Ondansetron Hcl 4 Mg/2 Ml Vial) 4 mg IVPUSH Q8H PRN PRN Reason: Nausea and Vomiting Pharmacy Consult (Consult Rx Perform Med Rec) 1 each MISCELLANE ONCE PRN PRN Reason: Consult order Senna (Sennosides 8.6 Mg Tablet) 17.2 mg PO BEDTIME PRN PRN Reason: constipation Sodium Chloride (0.9 % Sodium Chloride Flush 3 Ml Syringe) 3 ml IVFLUSH QSHIFT [facility] Last Admin: 07/17/22 09:09 Dose: 3 ml Torsemide (Torsemide 20 Mg Tablet) 20 mg PO DAILY [facility]; Protocol Last Admin: 07/17/22 09:15 Dose: 20 mg Home Medications Medication Instructions Recorded Confirmed Last Taken Type baclofen 10 mg tablet 0.5 - 1 tab PO BEDTIME PRN muscle 10/27/21 07/16/22 Unknown History spasm econazole 1 % topical cream 1 appl topical BID 10/27/21 07/16/22 04/05/22 History white petrolatum 42 % topical 1 ea topical BID PRN Dry Skin 10/27/21 07/16/22 Unknown History ointment cetirizine 10 mg tablet 10 mg PO DAILY 01/18/22 07/16/22 04/05/22 History fluoxetine 20 mg capsule 20 mg PO DAILY 01/18/22 07/16/22 04/05/22 History naproxen 500 mg tablet 500 mg PO BID PRN pain 01/18/22 07/16/22 Unknown History trazodone 50 mg tablet 100 mg PO BEDTIME PRN Insomnia 01/18/22 07/16/22 Unknown History albuterol sulfate 2.5 mg/3 mL 1 amp inhalation Q4H PRN Shortness 04/05/22 07/16/22 Unknown History (0.083 %) solution for nebulization Of Breath albuterol sulfate 90 mcg/actuation 2 puff inhalation Q4H PRN 04/05/22 07/16/22 Unknown History aerosol inhaler (Ventolin HFA) shortness of breath or wheezing docusate sodium 100 mg capsule 1 cap PO BID PRN Constipation 04/05/22 07/16/22 Unknown History fluticasone propionate 50 2 spray intranasal DAILY 04/05/22 07/16/22 04/05/22 History mcg/actuation nasal spray,suspension lamotrigine 100 mg tablet 100 mg PO DAILY 04/05/22 07/16/22 04/05/22 History sennosides 8.6 mg tablet (senna) 2 tab PO BEDTIME PRN constipation 04/05/22 07/16/22 Unknown History arformoterol 15 mcg/2 mL solution 2 ml inhalation BID 07/03/22 07/16/22 Unknown History for nebulization (Brovana) aripiprazole 5 mg tablet 5 mg PO DAILY 07/03/22 07/16/22 Unknown History fluticasone propionate 230 2 puff inhalation BID 07/03/22 07/16/22 Unknown History mcg-salmeterol 21 mcg/actuation HFA inhaler (Advair HFA) Physical Exam Vital Signs: Vital Signs: Last Vital Signs Temp 97.6 F 07/17/22 08:00 Pulse 99 04/10/23 08:40 Resp 18 07/17/22 11:28 BP 107/62 07/17/22 08:00 Pulse Ox 92 07/17/22 08:00 O2 Del Method High Flow Nasal C annula 07/17/22 08:00 O2 Flow Rate 30 07/17/22 08:00 FiO2 30 07/17/22 08:00 Oxygen Flow Rate 3 07/16/22 06:48 BMI result Body Mass Index 43.1 Const: General: comfortable and no acute distress Orientation/consciousness: patient oriented x3 HEENT: Other: Unremarkable Head: Yes normal to inspection Neck: Neck: Yes normal visual inspection Chest: Chest palpation & inspection: normal inspection of the chest Resp: Auscultation: no rhonchi and diminished lung sounds Cardio: Palpation: normal PMI Heart sounds: S1 normal heart sound present, S2 normal heart sound present, no gallops, no murmurs and no rubs GI: Palpation (GI): Soft to palpation Back/Spine/Pelvis: Other: unremarkable Skin: General skin exam: no rashes or lesions noted Neuro: General: patient oriented x3 Extrem: Other: 1+ edema General: Yes normal to inspection Psych: Mental Status: mental status grossly abnormal Results Laboratory Findings 07/16/22 07:29 07/17/22 07:19 ABG, PT/INR, D-dimer: PT/INR, D-dimer PT 14.5 SEC (10.0-13.1) H 07/16/22 07:29 INR 1.3 (0.9-1.1) H 07/16/22 07:29 Abnormal lab findings: Abnormal Labs 07/16/22 07/16/22 07/16/22 07:29 07:29 07:29 WBC 11.6 H RBC 6.17 H Hgb 11.5 L MCV 70.5 L MCH 18.6 L MCHC 26.4 L RDW 22.3 H Immature Gran % (Auto) 0.5 H Neut % (Auto) 85.6 H Lymph % (Auto) 6.4 L Lymph # (Auto) 0.8 L Abs Immat Gran (auto) 0.06 H Absolute Neuts (auto) 10.0 H PT 14.5 H INR 1.3 H ABG pH at Pt Temp ABG pCO2 at Pt Temp ABG pO2 at Pt Temp ABG HCO3 Potassium Chloride Carbon Dioxide Random Glucose Total Bilirubin B-Natriuretic Peptide 381 H 07/16/22 07/16/22 07/17/22 07:29 09:13 07:19 WBC RBC Hgb MCV MCH MCHC RDW Immature Gran % (Auto) Neut % (Auto) Lymph % (Auto) Lymph # (Auto) Abs Immat Gran (auto) Absolute Neuts (auto) PT INR ABG pH at Pt Temp 7.46 H ABG pCO2 at Pt Temp 66 H* ABG pO2 at Pt Temp 53 L ABG HCO3 47 H Potassium 5.2 H D Chloride 91 L 95 L Carbon Dioxide 40 H* 37 H Random Glucose 125 H Total Bilirubin 1.2 H B-Natriuretic Peptide 07/17/22 07:19 WBC RBC Hgb MCV MCH MCHC RDW Immature Gran % (Auto) Neut % (Auto) Lymph % (Auto) Lymph # (Auto) Abs Immat Gran (auto) Absolute Neuts (auto) PT INR ABG pH at Pt Temp ABG pCO2 at Pt Temp ABG pO2 at Pt Temp ABG HCO3 Potassium Chloride Carbon Dioxide Random Glucose Total Bilirubin B-Natriuretic Peptide 338 H Assessment and Plan (1) Acute on chronic respiratory failure with hypoxia and hypercapnia: Status: Acute (2) Asthma with exacerbation: Status: Acute (3) Oxygen desaturation during sleep: Status: Acute (4) Morbid obesity: Status: Acute (5) GEORGE (obstructive sleep apnea): Status: Acute Plan Diuresis as tolerated change to PO prednisone 40mg x 5 days, then 20mg x 5 days continue respiratory therapy Wean off the HF to nasal cannula to keep pox>90% Start APAP at night with oxygen Requesting APAP from [facility] As soon as possible to be able to stabilize her condition, then she can undergo her titration study for further management Continue respiratory therapy Time Spent With Patient Time: Total time managing care of this patient today ____ minutes. Procedures Date of Service Date of Service: 07/17/22
[2022-07-17] MEDS: Sodium Zirconium Cyclosilicate 5 GM POWD.PACK PO (12:42)
[2022-07-17 15:12] LABS: Adenovirus PCR Not Detected (Not Detect.); Bordetella parapertussis PCR Not Detected (Not Detect.); Bordetella pertussis PCR Not Detected (Not Detect.); Chlamydia pneumoniae PCR Not Detected (Not Detect.); Coronavirus 229E PCR Not Detected (Not Detect.); Coronavirus HKU1 PCR Not Detected (Not Detect.); Coronavirus NL63 PCR Not Detected (Not Detect.); Coronavirus OC43 PCR Not Detected (Not Detect.); Human metapneumovirus PCR Not Detected (Not Detect.); Influenza A PCR Not Detected (Not Detect.); Influenza B PCR Not Detected (Not Detect.); Mycoplasma pneumoniae PCR Not Detected (Not Detect.); Parainfluenza 1 PCR Not Detected (Not Detect.); Parainfluenza 2 PCR Not Detected (Not Detect.); Parainfluenza 3 PCR Not Detected (Not Detect.); Parainfluenza 4 PCR Not Detected (Not Detect.); RSV PCR Not Detected (Not Detect.); Rhino/Enterovirus PCR Not Detected (Not Detect.); SARS-CoV-2 PCR Not Detected (Not Detect.)
[2022-07-17 16:08] LABS: Appearance Urine Clear; Color Urine Yellow; Glucose Urine UA Negative (Negative); Leukocyte Esterase Urine Negative (Negative); Nitrite Urine Negative (Negative); Urine Blood Negative (Negative); Urine Ketones Negative (Negative); Urine Protein Negative (Neg-Trace)
[2022-07-18] VITALS (12 sets, daily range): BP systolic 104–135; BP diastolic 58–79; PULSE 64–106; RESP 16–20; TEMP 36.2–37.3; O2SAT 93–99
--- NOTE | 2022-07-18 00:18 | PC.RT ---
Started NOC Oximetry at 2330; pt not tolerating NC 2L, left on 10L 30% HFNC. Pt desat from 76%-83% for roughly 30mins. Stopped NOC Oximetry at 0015
[2022-07-18] MEDS: methylPREDNISolone Sod Succ 40 MG/ML VIAL IVPUSH ×3 (05:12→20:26)
[2022-07-18] MEDS: Heparin Sodium,Porcine 5,000 UNIT/ML VIAL 5000 UNIT SUBCUT ×2 (05:13→16:08)
[2022-07-18] MEDS: Fluticasone Propionate Nasal 16 GM SPRAY 2 SPRAY NOSTRIL-B (08:14)
[2022-07-18] MEDS: Torsemide 20 MG TABLET PO (08:15)
[2022-07-18] MEDS: lamoTRIgine 100 MG TABLET PO (08:15)
[2022-07-18] MEDS: ARIPiprazole 5 MG TABLET PO (08:15)
[2022-07-18] MEDS: 0.9 % Sodium Chloride Flush 3 ML SYRINGE IVFLUSH ×3 (08:16→20:27)
[2022-07-18] MEDS: Acetaminophen 325 MG TABLET 650 MG PO (08:21)
[2022-07-18] MEDS: Docusate Sodium 100 MG CAPSULE PO (08:29)
[2022-07-18] MEDS: Albuterol/Iprat 2.5/0.5MG 3 ML AMPUL.NEB INHALE ×3 (08:42→20:24)
[2022-07-18] MEDS: Fluticasone/Vilanterol 200/25 BLST.W.DEV 1 PUFF INHALE (08:42)
[2022-07-18] MEDS: FLUoxetine HCl 20 MG CAPSULE PO (08:48)
--- NOTE | 2022-07-18 10:25 | PM.PNPUL ---
Subjective Subjective Date of Service: 07/18/22 Interval history: Seen and examined. Still on high flow 30% 30L. Did not use the APAP last night, but will use it tonight and will titrate oxygen to keep pox >90% Seems to be volume overloaded. Will give additional lasix. Objective Data Labs 07/16/22 07:29 07/17/22 07:19 Labs: Laboratory Results - last 24 hr 07/17/22 07/17/22 13:09 14:21 Urine Color Yellow Urine Appearance Clear Urine pH 6.0 Ur Specific [place] 1.010 Urine Protein Negative Urine Glucose (UA) Negative Urine Ketones Negative Urine Blood Negative Urine Nitrite Negative Ur Leukocyte Esterase Negative Respiratory Panel [place] See Note Adenovirus (Rapid PCR) Not Detected B.pert (TEM-PCR) Not Detected B.parapertussis DNA PCR Not Detected C. pneumoniae DNA (PCR) Not Detected Coronavirus OC43 (PCR) Not Detected Coronavirus HKU1 (PCR) Not Detected Coronavirus 229E (PCR) Not Detected Coronavirus NL63 (PCR) Not Detected Human Metapneumovir PCR Not Detected Influenza A (RT-PCR) Not Detected Influenza B (RT-PCR) Not Detected M. pneumoniae (PCR) Not Detected Parainfluenza 1 (PCR) Not Detected Parainfluenza 2 (PCR) Not Detected Parainfluenza 3 (PCR) Not Detected Parainfluenza 4 (PCR) Not Detected RSV (PCR) Not Detected Entero/Rhino (PCR) Not Detected SARS-CoV-2 RNA (RT-PCR) Not Detected Physical Exam Vital Signs: Vital Signs: Last Vital Signs Temp 97.4 F 07/18/22 08:00 Pulse 77 07/18/22 08:45 Resp 20 07/18/22 08:45 BP 124/75 07/18/22 08:00 Pulse Ox 95 07/18/22 08:00 O2 Del Method High Flow Nasal C annula 07/18/22 08:00 O2 Flow Rate 32 07/18/22 08:00 FiO2 42 07/18/22 08:00 Oxygen Flow Rate 3 07/16/22 06:48 BMI result Body Mass Index 43.1 Const: General: comfortable and no acute distress Orientation/consciousness: patient oriented x3 HEENT: Other: Unremarkable Head: Yes normal to inspection Neck: Neck: Yes normal visual inspection Chest: Chest palpation & inspection: normal inspection of the chest Resp: Auscultation: no rhonchi and diminished lung sounds Cardio: Palpation: normal PMI Heart sounds: S1 normal heart sound present, S2 normal heart sound present, no gallops, no murmurs and no rubs GI: Palpation (GI): Soft to palpation Back/Spine/Pelvis: Other: unremarkable Skin: General skin exam: no rashes or lesions noted Neuro: General: patient oriented x3 Extrem: Other: 1+ edema General: Yes normal to inspection Psych: Mental Status: mental status grossly abnormal Procedures Date of Service Date of Service: 07/18/22 Assessment and Plan Assessment and plan (1) Acute on chronic respiratory failure with hypoxia and hypercapnia: Status: Acute (2) GEORGE (obstructive sleep apnea): Problem details: severe Status: Acute (3) Asthma with exacerbation: Status: Acute (4) Oxygen desaturation during sleep: Status: Acute (5) Morbid obesity: Status: Acute (6) Elevated brain natriuretic peptide (BNP) level: Status: Acute (7) Pulmonary hypertension: Problem details: Likely Pickwickian syndrome Status: Acute Plan Additional diuresis today repeat CXR wean off HF APAP at night with oxygen titration continue nebs prednisone taper Will need a outpt titration PSG study Time Spent With Patient Time: Total time managing care of this patient today ____ minutes. Progress Note: Quality Stroke Does the patient have a stroke diagnosis?: No
--- NOTE | 2022-07-18 10:35 | HO.PM.IMPN ---
Subjective Subjective Date of Service: 07/18/22 Review of Systems Follow up Resp failure developmental delay, mother present with patient on high flow, weaning down no complaints of pain or discomfort Physical Exam Vital Signs: Vital Signs: Last Vital Signs Temp 97.4 F 07/18/22 08:00 Pulse 77 07/18/22 08:45 Resp 20 07/18/22 08:45 BP 124/75 07/18/22 08:00 Pulse Ox 95 07/18/22 08:00 O2 Del Method High Flow Nasal C annula 07/18/22 08:00 O2 Flow Rate 32 07/18/22 08:00 FiO2 42 07/18/22 08:00 Oxygen Flow Rate 3 07/16/22 06:48 BMI result Body Mass Index 43.1 Appearing in no acute distress lung sounds dim heart regular rate rhythm, clear S1, S2 positive bowel sounds, abdomen is soft, nontender neuro patient is alert x3, no focal deficits Objective Data Active Medications Acetaminophen (Acetaminophen 325 Mg Tablet) 650 mg PO Q6H PRN PRN Reason: Pain, Mild (Pain Scale 1-3) Last Admin: 07/18/22 08:21 Dose: 650 mg Documented By: MAURI Albuterol Sulfate (Albuterol Sulfate (0.083%) 2.5 Mg/3 Ml Vial.Neb) 2.5 mg INHALE Q4H PRN PRN Reason: Shortness Of Breath Albuterol/Ipratropium (Albuterol/Iprat 2.5/0.5mg 3 Ml Ampul.Neb) 3 ml INHALE RQ6H WHILE AWAKE [facility] Last Admin: 07/18/22 08:42 Dose: 3 ml Documented By: KIERRA Aripiprazole (Aripiprazole 5 Mg Tablet) 5 mg PO DAILY [facility] Last Admin: 07/18/22 08:15 Dose: 5 mg Documented By: MAURI Docusate Sodium (Docusate Sodium 100 Mg Capsule) 100 mg PO DAILY PRN PRN Reason: Constipation Last Admin: 07/18/22 08:29 Dose: 100 mg Documented By: MAURI Fluoxetine HCl (Fluoxetine Hcl 20 Mg Capsule) 20 mg PO DAILY [facility] Last Admin: 07/18/22 08:48 Dose: 20 mg Documented By: MAURI Fluticasone Propionate (Fluticasone Propionate Nasal 16 Gm [place]) 2 spray NOSTRIL-B DAILY [facility] Last Admin: 07/18/22 08:14 Dose: 2 spray Documented By: MAURI Fluticasone/Vilanterol (Fluticasone/Vilanterol 200/25 Blst.W.Dev) 1 puff INHALE RDAILY [facility] Last Admin: 07/18/22 08:42 Dose: 1 puff Documented By: KIERRA Furosemide (Furosemide 40 Mg/4 Ml Vial) 40 mg IVPUSH ONCE ONE; Protocol Stop: 07/18/22 10:34 Heparin Sodium (Porcine) (Heparin Sodium,Porcine 5,000 Unit/Ml Vial) 5,000 unit SUBCUT Q12H [facility] Last Admin: 07/18/22 05:13 Dose: 5,000 unit Documented By: MARTINE Cefazolin Sodium 1 gm/ Sodium (Chloride) 50 mls @ 100 mls/hr IV Q8H [facility] Last Infusion: 07/18/22 08:48 Dose: 0 mls/hr Documented By: MAURI Lamotrigine (Lamotrigine 100 Mg Tablet) 100 mg PO DAILY [facility] Last Admin: 07/18/22 08:15 Dose: 100 mg Documented By: MAURI Methylprednisolone Sodium Succinate (Methylprednisolone Sod Succ 40 Mg/Ml Vial) 40 mg IVPUSH Q12H [facility] Last Admin: 07/18/22 05:12 Dose: 40 mg Documented By: MARTINE Multi-Ingred Cream/Lotion/Oil/Oint (Mineral Oil/Petrolatum,White 106 Gm Tube) 1 appl TOPICAL BID PRN PRN Reason: Dry Skin Ondansetron HCl (Ondansetron Hcl 4 Mg/2 Ml Vial) 4 mg IVPUSH Q8H PRN PRN Reason: Nausea and Vomiting Pharmacy Consult (Consult Rx Perform Med Rec) 1 each MISCELLANE ONCE PRN PRN Reason: Consult order Senna (Sennosides 8.6 Mg Tablet) 17.2 mg PO BEDTIME PRN PRN Reason: constipation Sodium Chloride (0.9 % Sodium Chloride Flush 3 Ml Syringe) 3 ml IVFLUSH QSHIFT [facility] Last Admin: 07/18/22 08:16 Dose: 3 ml Documented By: MAURI Torsemide (Torsemide 20 Mg Tablet) 20 mg PO DAILY [facility]; Protocol Last Admin: 07/18/22 08:15 Dose: 20 mg Documented By: MAURI Labs 07/16/22 07:29 07/17/22 07:19 Labs: Laboratory Results - last 24 hr 07/17/22 07/17/22 13:09 14:21 Urine Color Yellow Urine Appearance Clear Urine pH 6.0 Ur Specific [place] 1.010 Urine Protein Negative Urine Glucose (UA) Negative Urine Ketones Negative Urine Blood Negative Urine Nitrite Negative Ur Leukocyte Esterase Negative Respiratory Panel [place] See Note Adenovirus (Rapid PCR) Not Detected B.pert (TEM-PCR) Not Detected B.parapertussis DNA PCR Not Detected C. pneumoniae DNA (PCR) Not Detected Coronavirus OC43 (PCR) Not Detected Coronavirus HKU1 (PCR) Not Detected Coronavirus 229E (PCR) Not Detected Coronavirus NL63 (PCR) Not Detected Human Metapneumovir PCR Not Detected Influenza A (RT-PCR) Not Detected Influenza B (RT-PCR) Not Detected M. pneumoniae (PCR) Not Detected Parainfluenza 1 (PCR) Not Detected Parainfluenza 2 (PCR) Not Detected Parainfluenza 3 (PCR) Not Detected Parainfluenza 4 (PCR) Not Detected RSV (PCR) Not Detected Entero/Rhino (PCR) Not Detected SARS-CoV-2 RNA (RT-PCR) Not Detected Assessment and Plan (1) Acute on chronic respiratory failure with hypoxia and hypercapnia: Status: Acute Plan This is a 47-year-old female with underlying intellectual disability, obesity, asthma, moderate to severe persistent asthma, severe obstructive sleep apnea, supplemental oxygen dependency, recent admission for CHF who was brought in to the ED for hypoxia GEORGE plan for bipap at home, completed overnight oximetry start cpap tonight while inpatient then bipap at home Acute on chronic respiratory failure with hypoxia and hypercarbia multifactorial r/t untreated GEORGE, asthma, morbid obesity/obesity hypoventilation, sedating medications rsv, covid, flu neg Scheduled Solu-Medrol and DuoNebs currently on high flow o2, wean>NC oxygen Pulmonary following repeat CXR pending Right lower extremity cellulitis was treated for same on last admission will treat with IV kefzol No DVT on ultrasound HFpEF No acute exacerbation mood continue abilify, fluoxetine, lamotrigine morbid obesity BMI 42.9 Discussed importance of weight management as this may be contributing to worsening of other comorbidities DVT ppx - heparin code status - full code Attending - Dr. Grimaldo Continue hospitalization for treatment of respiratory failure requiring overnight pulse oximetry Time Spent With Patient Time: Total time managing care of this patient today ____ minutes. Quality Stroke Does the patient have a stroke diagnosis?: No VTE Prior VTE?: No VTE Risk Level:: Medical - moderate - high VTE Device Contraindication: Treatment Not Indicated VTE Drug Contraindication: N/A - Med Ordered
[2022-07-18] MEDS: Furosemide 40 MG/4 ML VIAL IVPUSH (11:15)
[2022-07-18] MEDS: Sennosides 8.6 MG TABLET 17.2 MG PO (11:15)
--- NOTE | 2022-07-18 13:35 | MHC.CM.PN ---
EMR reviewed, pt not medically cleared for D/C today. Pt to use CPAP this evening and will re-eval. CM will continue to follow.
--- NOTE | 2022-07-18 17:12 | PC.RT ---
Pt awake and oob to chair. Post svn pt transitioned to chavez cannula, titrated to 6 lpm with spo2 95%. RN aware. HFNC on standby. Home care [facility] delivered home cpap unit, Dr. Logan request trial tonight.
[2022-07-19] VITALS (10 sets, daily range): BP systolic 98–128; BP diastolic 52–78; PULSE 66–104; RESP 16–20; TEMP 36.1–36.6; O2SAT 90–97
[2022-07-19] MEDS: Heparin Sodium,Porcine 5,000 UNIT/ML VIAL 5000 UNIT SUBCUT ×2 (05:04→16:14)
[2022-07-19] MEDS: methylPREDNISolone Sod Succ 40 MG/ML VIAL IVPUSH ×3 (05:05→20:04)
--- NOTE | 2022-07-19 05:52 | PC.RT ---
Pt trialed on Home CPAP unit overnight. Pt placed on CPAP for NOC support with Nasal pillows and 6L O2 bleed in. Pt was able to wolfgang cpap throughout the night without incident.
[2022-07-19 07:32] LABS: Anion Gap 14 (12-20); Blood Urea Nitrogen 13 mg/dL (9-16); Calcium 9.3 mg/dL (8.4-10.2); Carbon Dioxide 37 mmol/L (22-29); Chloride 91 mmol/L (96-108); Creatinine Clr Calc Pharmacy 130.3; Estimated Glomerular Filt Rate > 60; Glucose Random 121 mg/dL (60-115); Potassium 4.5 mmol/L (3.3-5.1); Sodium 137 mmol/L (135-145)
[2022-07-19] MEDS: Fluticasone/Vilanterol 200/25 BLST.W.DEV 1 PUFF INHALE (07:40)
[2022-07-19] MEDS: Albuterol/Iprat 2.5/0.5MG 3 ML AMPUL.NEB INHALE ×3 (07:40→21:21)
--- NOTE | 2022-07-19 09:01 | P.PNPL_ITS ---
Subjective Subjective Date of Service: 07/19/22 Interval history: The patient was seen on exam. She did use her CPAP last night. She was able to tolerated well. Currently she is on 6 L of oxygen. She diuresed well with Lasix. Her x-ray appears air was personally by me demonstrating increased cardiac size very restricted lungs in addition to what appears to be some vascular congestion to me. She responded well to the Lasix but I will give her additional Lasix today as she is still on 6 L of oxygen. She is going to work on deep breathing as well and will be setting up to allow improvement in her oxygenation. I am hopeful that she can go home soon. Objective Data Labs 07/16/22 07:29 07/19/22 06:50 Labs: Laboratory Results - last 24 hr 07/19/22 06:50 Sodium 137 Potassium 4.5 Chloride 91 L Carbon Dioxide 37 H Anion Gap 14 BUN 13 Creatinine 0.66 Estim Creat Clear Calc 130.3 Estimated GFR > 60 Random Glucose 121 H Calcium 9.3 Review of Systems Review of Systems Yes all other systems are reviewed and are negative Constitutional: Reports as per HPI, Reports daytime sleepiness, Reports difficulty sleeping, Reports snoring and Reports stops breathing during sleep Eyes: Reports as per HPI and Denies no additional eye complaints Denies system reviewed and no additional complaints, except as documented and Reports as per HPI Cardiovascular: Reports as per HPI, Reports no additional cardiovascular complaints, Denies acrocyanosis, Denies cool extremities, Denies chest pain, Reports pedal edema, Denies leg edema, Denies lightheadedness, Denies palpitations and Denies dyspnea Respiratory: Reports as per HPI, Denies no additional respiratory complaints, Denies dyspnea and Reports snoring Gastrointestinal: Reports as per HPI and Denies no additional gastrointestinal complaints Genitourinary: Reports as per HPI Musculoskeletal: Reports no additional musculoskeletal complaints and Reports as per HPI Skin/Breast: Reports system reviewed and no additional complaints, except as docu Reports system reviewed and no additional complaints, except as documented and Reports as per HPI Psychiatric: Reports no additional psychiatric complaints and Reports as per HPI Endocrine: Reports no additional endocrine complaints, Reports as per HPI and Denies palpitations Hematologic/Lymphatic: Reports no additional hematologic/lymphatic complaints a nd Reports as per HPI Allergic/Immunologic: Reports no additional allergic/immunologic complaints and Reports as per HPI Physical Exam Vital Signs: Vital Signs: Last Vital Signs Temp 97.4 F 07/19/22 08:00 Pulse 92 07/19/22 08:00 Resp 20 07/19/22 08:00 BP 124/60 07/19/22 08:00 Pulse Ox 97 07/19/22 08:00 O2 Del Method Nasal Cannula 07/19/22 08:00 O2 Flow Rate 6 07/19/22 08:00 FiO2 32.2 07/18/22 11:32 Oxygen Flow Rate 3 07/16/22 06:48 BMI result Body Mass Index 43.1 Const: General: comfortable and no acute distress Orientation/consciousness: patient oriented x3 HEENT: Other: Unremarkable Head: Yes normal to inspection Neck: Neck: Yes normal visual inspection Chest: Chest palpation & inspection: normal inspection of the chest Resp: Auscultation: no rhonchi and diminished lung sounds Cardio: Palpation: normal PMI Heart sounds: S1 normal heart sound present, S2 normal heart sound present, no gallops, no murmurs and no rubs GI: Palpation (GI): Soft to palpation Back/Spine/Pelvis: Other: unremarkable Skin: General skin exam: no rashes or lesions noted Neuro: General: patient oriented x3 Extrem: Other: 1+ edema General: Yes normal to inspection Psych: Mental Status: mental status grossly abnormal Procedures Date of Service Date of Service: 07/19/22 Assessment and Plan Assessment and plan (1) Acute on chronic respiratory failure with hypoxia and hypercapnia: Status: Acute (2) GEORGE (obstructive sleep apnea): Problem details: severe Status: Acute (3) Asthma with exacerbation: Status: Acute (4) Oxygen desaturation during sleep: Status: Acute (5) Morbid obesity: Status: Acute (6) Elevated brain natriuretic peptide (BNP) level: Status: Acute (7) Pulmonary hypertension: Problem details: Likely Pickwickian syndrome Status: Acute Plan Additional diuresis today, lasix 20mg iv x 1 titrate O2 to keep pox >90% APAP at night with oxygen while sleeping continue nebs prednisone taper Will need a outpt titration PSG study Time Spent With Patient Time: Total time managing care of this patient today ____ minutes. Progress Note: Quality Stroke Does the patient have a stroke diagnosis?: No
[2022-07-19] MEDS: lamoTRIgine 100 MG TABLET PO (09:32)
[2022-07-19] MEDS: FLUoxetine HCl 20 MG CAPSULE PO (09:32)
[2022-07-19] MEDS: ARIPiprazole 5 MG TABLET PO (09:32)
[2022-07-19] MEDS: 0.9 % Sodium Chloride Flush 3 ML SYRINGE IVFLUSH ×3 (09:32→20:03)
[2022-07-19] MEDS: Furosemide 20 MG/2 ML VIAL IVPUSH (09:42)
[2022-07-19] MEDS: Torsemide 20 MG TABLET PO (10:52)
[2022-07-19] MEDS: Fluticasone Propionate Nasal 16 GM SPRAY 2 SPRAY NOSTRIL-B (12:02)
--- NOTE | 2022-07-19 14:49 | MHC.CM.PN ---
EMR reviewed, per MD rounds and RT recommendations, pt tentative D/C tomorrow back home. [facility] will follow pt at home. CM will continue to follow.
--- NOTE | 2022-07-19 15:17 | P.PNIM_ITS ---
Subjective Subjective Date of Service: 07/19/22 Interval History: Wolof-speaking only, information obtained with the help of an paper goods machine set up operator. Spoke to mother at bedside and the patient. Patient reports that she is feeling better, she has now titrated down to 6 L of oxygen by nasal cannula. Mother is concerned that if she goes home today she may not be able to do well with ambulation and with like to monitor her for 1 more day. She uses 2 L of oxygen at baseline on ambulation only. She otherwise denies any chest pain, no abdominal pain, no nausea or vomiting, no diarrhea or constipation, no urinary symptoms. Review of Systems Review of Systems: Yes all other systems are reviewed and are negative Physical Exam Vital Signs: Vital Signs: Last Vital Signs Temp 96.9 F 07/19/22 15:15 Pulse 104 H 07/19/22 15:15 Resp 20 07/19/22 15:15 BP 98/53 L 07/19/22 15:15 Pulse Ox 90 L 07/19/22 15:15 O2 Del Method Nasal Cannula 07/19/22 15:15 O2 Flow Rate 2.5 07/19/22 15:15 FiO2 32.2 07/18/22 11:32 Oxygen Flow Rate 3 07/16/22 06:48 BMI result Body Mass Index 43.1 Const: Other: patient alert, sitting in bedside chair, on 6 L of oxygen via nasal cannula Resp: Other: crackles bilaterally, on nasal cannula 6 L, no respiratory distress GI: Other: abdomen is obese, nontender, no rebound or guarding Extrem: Other: no lower extremity edema Objective Data Active Medications Acetaminophen (Acetaminophen 325 Mg Tablet) 650 mg PO Q6H PRN PRN Reason: Pain, Mild (Pain Scale 1-3) Last Admin: 07/18/22 08:21 Dose: 650 mg Documented By: MAURI Albuterol Sulfate (Albuterol Sulfate (0.083%) 2.5 Mg/3 Ml Vial.Neb) 2.5 mg INHALE Q4H PRN PRN Reason: Shortness Of Breath Albuterol/Ipratropium (Albuterol/Iprat 2.5/0.5mg 3 Ml Ampul.Neb) 3 ml INHALE RQ6H WHILE AWAKE REMA Last Admin: 07/19/22 14:12 Dose: 3 ml Documented By: KIERRA Aripiprazole (Aripiprazole 5 Mg Tablet) 5 mg PO DAILY [facility] Last Admin: 07/19/22 09:32 Dose: 5 mg Documented By: ANAID Docusate Sodium (Docusate Sodium 100 Mg Capsule) 100 mg PO DAILY PRN PRN Reason: Constipation Last Admin: 07/18/22 08:29 Dose: 100 mg Documented By: RICKIE-RUEAMarcos Fluoxetine HCl (Fluoxetine Hcl 20 Mg Capsule) 20 mg PO DAILY [facility] Last Admin: 07/19/22 09:32 Dose: 20 mg Documented By: ANAID Fluticasone Propionate (Fluticasone Propionate Nasal 16 Gm Moosic) 2 spray NOSTRIL-B DAILY [facility] Last Admin: 07/19/22 12:02 Dose: 2 spray Documented By: ANAID Fluticasone/Vilanterol (Fluticasone/Vilanterol 200/25 Blst.W.Dev) 1 puff INHALE RDAILY [facility] Last Admin: 07/19/22 07:40 Dose: 1 puff Documented By: ARELI Heparin Sodium (Porcine) (Heparin Sodium,Porcine 5,000 Unit/Ml Vial) 5,000 unit SUBCUT Q12H [facility] Last Admin: 07/19/22 05:04 Dose: 5,000 unit Documented By: MARTINE Cefazolin Sodium 1 gm/ Sodium (Chloride) 50 mls @ 100 mls/hr IV Q8H [facility] Last Infusion: 07/19/22 10:05 Dose: 0 mls/hr Documented By: ANAID Lamotrigine (Lamotrigine 100 Mg Tablet) 100 mg PO DAILY [facility] Last Admin: 07/19/22 09:32 Dose: 100 mg Documented By: ANAID Methylprednisolone Sodium Succinate (Methylprednisolone Sod Succ 40 Mg/Ml Vial) 40 mg IVPUSH Q8H [facility] Last Admin: 07/19/22 13:23 Dose: 40 mg Documented By: ANAID Multi-Ingred Cream/Lotion/Oil/Oint (Mineral Oil/Petrolatum,White 106 Gm Tube) 1 appl TOPICAL BID PRN PRN Reason: Dry Skin Ondansetron HCl (Ondansetron Hcl 4 Mg/2 Ml Vial) 4 mg IVPUSH Q8H PRN PRN Reason: Nausea and Vomiting Pharmacy Consult (Consult Rx Perform Med Rec) 1 each MISCELLANE ONCE PRN PRN Reason: Consult order Senna (Sennosides 8.6 Mg Tablet) 17.2 mg PO BEDTIME PRN PRN Reason: constipation Last Admin: 07/18/22 11:15 Dose: 17.2 mg Documented By: MAURI Sodium Chloride (0.9 % Sodium Chloride Flush 3 Ml Syringe) 3 ml IVFLUSH QSHIFT [facility] Last Admin: 07/19/22 09:32 Dose: 3 ml Documented By: ANAID Torsemide (Torsemide 20 Mg Tablet) 20 mg PO DAILY REMA; Protocol Last Admin: 07/19/22 10:52 Dose: 20 mg Documented By: ANAID Labs 07/16/22 07:29 07/19/22 06:50 Labs: Laboratory Results - last 24 hr 07/19/22 06:50 Anion Gap 14 Estim Creat Clear Calc 130.3 Estimated GFR > 60 Random Glucose 121 H Calcium 9.3 Assessment and Plan (1) GEORGE (obstructive sleep apnea): Status: Acute (2) Acute on chronic respiratory failure with hypoxia and hypercapnia: Status: Acute (3) Pulmonary hypertension: Status: Acute (4) Supplemental oxygen dependent: Status: Acute (5) Asthma with exacerbation: Status: Acute Plan This is a 47-year-old female with underlying intellectual disability, obesity, asthma, moderate to severe persistent asthma, severe obstructive sleep apnea, supplemental oxygen dependency, recent admission for CHF who was brought in to the ED for hypoxia #Acute on chronic respiratory failure with hypoxia and hypercarbia - likely multifactorial in the setting of GEORGE, asthma exacerbation, morbid obesity,/obesity hypoventilation syndrome, and sedatives that she was on - viral serology negative - continue Solu-Medrol, DuoNebs p.r.n. and scheduled - titrate oxygen down to baseline O2, currently on 6 L - pulmonary following #GEORGE - BiPAP has been requested and is now available for patient to use at bedtime - continue CPAP at bedtime while inpatient # Right lower extremity cellulitis - was treated for same on last admission - continue IV Kefzol - No DVT on ultrasound # HFpEF - No acute exacerbation - monitor # mood - continue abilify, fluoxetine, lamotrigine # morbid obesity BMI 42.9 Discussed importance of weight management as this may be contributing to worsening of other comorbidities DVT ppx - heparin code status - full code patient require continuous hospital stay given high O2 requirement from [facility]. Currently on 6 L, with plan to titrate and sent home in a.m. Time Spent With Patient Time: Total time managing care of this patient today ____ minutes. Quality Stroke Does the patient have a stroke diagnosis?: No VTE Prior VTE?: No VTE Risk Level:: Medical - moderate - high VTE Device Contraindication: Treatment Not Indicated VTE Drug Contraindication: N/A - Med Ordered
[2022-07-20 01:05] VITALS: PULSE 94; RESP 19; O2SAT 95
[2022-07-20 02:40] VITALS: O2SAT 93
[2022-07-20 03:33] VITALS: BP 140/92; PULSE 99; RESP 19; TEMP 36.2; O2SAT 98
[2022-07-20 04:24] VITALS: PULSE 99; RESP 19; O2SAT 98
[2022-07-20] MEDS: Heparin Sodium,Porcine 5,000 UNIT/ML VIAL 5000 UNIT SUBCUT (05:28)
[2022-07-20] MEDS: methylPREDNISolone Sod Succ 40 MG/ML VIAL IVPUSH (05:28)
[2022-07-20 07:17] VITALS: BP 146/84; PULSE 83; RESP 18; TEMP 37; O2SAT 96
[2022-07-20] MEDS: lamoTRIgine 100 MG TABLET PO (07:56)
[2022-07-20] MEDS: FLUoxetine HCl 20 MG CAPSULE PO (07:56)
[2022-07-20] MEDS: ARIPiprazole 5 MG TABLET PO (07:56)
[2022-07-20] MEDS: Torsemide 20 MG TABLET PO (07:56)
[2022-07-20] MEDS: Acetaminophen 325 MG TABLET 650 MG PO (07:56)
[2022-07-20] MEDS: 0.9 % Sodium Chloride Flush 3 ML SYRINGE IVFLUSH (07:57)
[2022-07-20] MEDS: Fluticasone/Vilanterol 200/25 BLST.W.DEV 1 PUFF INHALE (08:07)
[2022-07-20] MEDS: Albuterol/Iprat 2.5/0.5MG 3 ML AMPUL.NEB INHALE (08:07)
[2022-07-20 08:10] VITALS: PULSE 83; RESP 16; O2SAT 96
[2022-07-20] MEDS: Fluticasone Propionate Nasal 16 GM SPRAY 2 SPRAY NOSTRIL-B (08:22)
--- NOTE | 2022-07-20 09:56 | P.CDIM_ITS ---
PROVIDER RESPONSE TEXT: To clarify, the appropriate diagnosis supported by the clinical indicators: Moderate persistent: specialist has documented moderate to severe asthma; currently has acute asthma exacerbation QUERY TEXT: PHYSICIAN'S DOCUMENTATION REQUEST Date of Query: 07/20/2022 07:44 AM EDT Patient Name: Brandon Lang Admit Date: 07/16/2022 Dear Sarah Gutierrez, A review of the medical record indicates additional documentation may be needed. Please review below and update the documentation accordingly. The diagnosis of asthma was documented in the record on 07/16/22. Additional clinical indicators from the record include: Per H&P 07/16/22: asthma, moderate to severe persistent asthma Per MD progress note 07/19/22: Asthma with exacerbation On Duoneb, Breo Based on the above, please clarify in the Progress Notes further specificity regarding the type and a cuity of the asthma: Mild intermittent Please specify if with or without acute exacerbation or status asthmaticus Mild persistent Please specify if with or without acute exacerbation or status asthmaticus Moderate persistent Please specify if with or without acute exacerbation or status asthmaticus Severe persistent Please specify if with or without acute exacerbation or status asthmaticus Other (explain) Clinically unable to determine (explain) Thank you, Lucinda Real RN Use of terms such as suspected, likely, concern for, or probable (associated with a specific diagnosi s that is being evaluated, monitored, or treated as if it exists) are acceptable and can be coded in the inpatient se tting, when documented at the time of discharge. Please use your independent medical judgment in providing your response. THIS QUERY IS PART OF THE PERMANENT MEDICAL RECORD
--- NOTE | 2022-07-20 10:21 | MHC.CM.PN ---
Addendum entered by Reyna Chin 07/20/22 10:33: Pts family to transport pt home. Original Note: EMR reviewed and per MD rounds, pt medically cleared for D/C today with family resuming care. [facility] to follow at home.
--- NOTE | 2022-07-20 11:06 | P.DS_ITS ---
DS: Providers Provider Date of Service: 07/20/22 Date of admission: 07/16/22 15:06 Date of discharge: 07/20/22 Primary care physician: Miranda Maravilla DO Consults: 07/16/22 15:58 Consult to Pulmonology Routine [place]ing [place] [facility] [place] [facility] Reason for consultation: respiratory failure Has provider been notified: No Attending physician on discharge: Abraham Grimaldo Discharging clinician: Sarah Gutierrez DS: Diagnosis Discharge Diagnosis (1) GEORGE (obstructive sleep apnea): Status: Acute (2) Acute on chronic respiratory failure with hypoxia and hypercapnia: Status: Acute (3) Pulmonary hypertension: Status: Acute (4) Supplemental oxygen dependent: Status: Acute (5) Asthma with exacerbation: Status: Acute DS: Summary Hospital Course Hospital Course: Fom H&P on day of admission This is a 47-year-old female with underlying intellectual disability, obesity, asthma, moderate to severe persistent asthma, severe obstructive sleep apnea, supplemental oxygen dependency who was brought in to the ED for hypoxia.? Patient has recent admission from July 03 to July 05 for heart failure.? She has been using supplemental oxygen at 2 L with exertion. She had sleep study 07/05 for cpap titration but this was aborted due to inability of patient to sleep and therefore patient has not been able to start using CPAP. The plan was for her to use oxygen at night to maintain o2 satuaration above 90%. Today she was noted to desaturate into the 60s and was difficult to arouse so she was brought in for evaluation. Patient's family stat es that they try to monitor sodium intake, but patient likes to eat [place] food and [employer]. She is compliant with her medication.? In the ED CXR showed no evidence of pneumonia or CHF. ABG and other lab work including BNP was at the patient's baseline. Due to hypoxia, she was placed on high flow oxygen and the decision was made to admit her to the hospital. The history was primarily obtained from the patient's parents at the bedside with assistance of a citrix engineer. The patient was able to answer simple questions but her eyes remained closed and she primarily shook her head yes or no. Unable to obtain full ROS, but patient denies chest pain, abdominal pain. She does report pain in her right leg. Denies fever or chills. Parents report chronic dry cough. No recent sick contacts. No new medications. Acute on chronic respiratory failure with hypoxia and hypercarbia -? likely multifactorial in the setting of GEORGE, asthma exacerbation, morbid obesity,/obesity hypoventilation syndrome, and sedatives that she was on -? viral? serology negative -? treated with IV Solu-Medrol, DuoNebs p.r.n. and scheduled -? titrate oxygen down from high-flow to baseline supplemental oxygen -? seen by pulmonary, able to obtain APAP from [facility] which she will be discharged with. She will need outpatient titration study for further management. Recommend call to schedule follow-up appointment with pulmonology. Will be discharged home with prednisone taper. Should continue supplemental oxygen 2 L, with goal O2 saturation of 90% Right leg cellulitis. treated with IV kefzol, redness and pain have improved significantly. Will be discharged to complete oral course of Keflex Time Spent with Patient Time attestation: Total time managing care of this patient today ____ minutes. Discharge coordination time: Greater than 30 minutes Quality: Safe Use of Opioids Does Pt have an Active Cancer Diagnosis on the Problem List?: No Quality: Stroke Does the patient have a stroke diagnosis?: No Physical Exam Vital Signs: Vital Signs: Last Vital Signs Temp 98.6 F 07/20/22 07:17 Pulse 83 07/20/22 08:10 Resp 16 07/20/22 08:10 BP 146/84 H 07/20/22 07:17 Pulse Ox 96 07/20/22 07:17 O2 Del Method High Flow Nasal C annula 07/20/22 07:17 O2 Flow Rate 2.5 07/20/22 03:33 FiO2 32.2 07/18/22 11:32 Oxygen Flow Rate 3 07/16/22 06:48 BMI result Body Mass Index 43.1 Const: General: comfortable, no acute distress, alert and awake Nutritional Appearance: obese Resp: Effort & Inspection: normal respiratory effort, able to speak in complete sentences, no respiratory distress and no use of accessory muscles GI: Palpation (GI): Soft to palpation and nontender Extrem: Other: right leg with minimal erythema, no warmth, no open wounds Discharge Plan Discharge Anticipated Discharge Date/Time: 07/20/22 11:22 Patient Disposition: Home, Self-Care Discharge Diagnosis: acute on chronic respiratory failure with hypoxia and hypercarbia Acute asthma exacerbation right leg cellulitis Referrals: [facility] [Other] - 1 Week Miranda Maravilla DO [Primary Care Provider] - 1 Week Sher Tesfaye MD [Physician] - 1 Week Discharge Medications: New cephalexin 500 mg capsule 500 mg PO Q6H 3 Days Qty: 12 0RF prednisone 10 mg tablet See Taper PO DAILY Qty: 20 0RF Taper: Prednisone 40 mg daily for 2 Days and 0 Hour 30 mg daily for 2 Days and 0 Hour 20 mg daily for 2 Days and 0 Hour 10 mg daily for 2 Days and 0 Hour Continued ipratropium-albuterol 0.5 mg-3 mg(2.5 mg base)/3 mL solution for nebulization 3 ml inhalation TID Qty: 270 6RF white petrolatum 42 % ointment 1 ea topical BID PRN (Reason: Dry Skin) econazole 1 % cream 1 appl topical BID cetirizine 10 mg tablet 10 mg PO DAILY fluoxetine 20 mg capsule 20 mg PO DAILY naproxen 500 mg tablet 500 mg PO BID PRN (Reason: pain) sennosides [senna] 8.6 mg tablet 2 tab PO BEDTIME PRN (Reason: constipation) albuterol sulfate 2.5 mg /3 mL (0.083 %) solution for nebulization 1 amp inhalation Q4H PRN (Reason: Shortness Of Breath) docusate sodium 100 mg capsule 1 cap PO BID PRN (Reason: Constipation) fluticasone propionate 50 mcg/actuation spray,suspension 2 spray intranasal DAILY lamotrigine 100 mg tablet 100 mg PO DAILY albuterol sulfate [Ventolin HFA] 90 mcg/actuation HFA aerosol inhaler 2 puff inhalation Q4H PRN (Reason: shortness of breath or wheezing) aripiprazole 5 mg tablet 5 mg PO DAILY fluticasone propion-salmeterol [Advair HFA] 230-21 mcg/actuation HFA aerosol inhaler 2 puff inhalation BID arformoterol [Brovana] 15 mcg/2 mL solution for nebulization 2 ml inhalation BID torsemide 20 mg tablet 20 mg PO DAILY 30 Days Qty: 30 6RF Discontinued baclofen 10 mg tablet 0.5 - 1 tab PO BEDTIME PRN (Reason: muscle spasm) trazodone 50 mg tablet 100 mg PO BEDTIME PRN (Reason: Insomnia) Discharge Orders: Discharge Order (Routine); Ordered 07/20/22 Ordered By: Sarah Gutierrez Activity on Discharge: As tolerated Stand Alone Forms: Patient Portal Discharge page Care Plan Goals: prevention of recurrent hospital admissions Health Concerns: acute on chronic respiratory failure with hypoxia and hypercarbia Acute asthma exacerbation Right leg cellulitis Plan of Treatment: use auto CPAP machine every night continue to use supplemental oxygen as previously prescribed including at night with CPAP call to schedule follow-up appointment with pulmonology to schedule outpatient titration study complete course of steroids as prescribed Complete course of antibiotics for cellulitis as prescribed baclofen and trazodone likely causing sedation would avoid if able Assessment: see discharge summary
--- NOTE | 2022-07-20 13:00 | PM.PNPUL ---
Subjective Subjective Date of Service: 07/20/22 Interval history: The patient was seen on exam. She is feeling better. She was able to use the CPAP last night using nasal pillows. She is doing a good job keeping mouth close that she does not have significant air leakage through the mouth. Her AHI still elevated at 16. Her settings right now are 6-16. Therefore I did increase the pressure is 10-20 with the hope that she can tolerated. She is currently using a nasal pillow she may need a fullface mask with the elevated pressures but we will continue on the current settings she is tolerating. She is also continues to use it 2.5 L with oxygen with the CPAP and also during the daytime. Oxygen is a lot better. She diuresed very well with Lasix. Clinic the patient feels better wants to go home. She does have a request for a titration study that is been ordered. She will follow-up with her regular computer technology trainer once she is able to do so. Objective Data Labs 07/16/22 07:29 07/19/22 06:50 Review of Systems Review of Systems Yes all other systems are reviewed and are negative Constitutional: Reports as per HPI, Reports daytime sleepiness, Reports difficulty sleeping, Reports snoring and Reports stops breathing during sleep Eyes: Reports as per HPI and Denies no additional eye complaints Denies system reviewed and no additional complaints, except as documented and Reports as per HPI Cardiovascular: Reports as per HPI, Reports no additional cardiovascular complaints, Denies acrocyanosis, Denies cool extremities, Denies chest pain, Reports pedal edema, Denies leg edema, Denies lightheadedness, Denies palpitations and Denies dyspnea Respiratory: Reports as per HPI, Denies no additional respiratory complaints, Denies dyspnea and Reports snoring Gastrointestinal: Reports as per HPI and Denies no additional gastrointestinal complaints Genitourinary: Reports as per HPI Musculoskeletal: Reports no additional musculoskeletal complaints and Reports as per HPI Skin/Breast: Reports system reviewed and no additional complaints, except as docu Reports system reviewed and no additional complaints, except as documented and Reports as per HPI Psychiatric: Reports no additional psychiatric complaints and Reports as per HPI Endocrine: Reports no additional endocrine complaints, Reports as per HPI and Denies palpitations Hematologic/Lymphatic: Reports no additional hematologic/lymphatic complaints and Reports as per HPI Allergic/Immunologic: Reports no additional allergic/immunologic complaints and Reports as per HPI Physical Exam Vital Signs: Vital Signs: Last Vital Signs Temp 98.6 F 07/20/22 07:17 Pulse 83 07/20/22 08:10 Resp 16 07/20/22 08:10 BP 146/84 H 07/20/22 07:17 Pulse Ox 96 07/20/22 07:17 O2 Del Method High Flow Nasal C annula 07/20/22 07:17 O2 Flow Rate 2.5 07/20/22 03:33 FiO2 32.2 07/18/22 11:32 Oxygen Flow Rate 3 07/16/22 06:48 BMI result Body Mass Index 43.1 Const: General: comfortable, no acute distress, alert and awake Nutritional Appearance: obese Resp: Effort & Inspection: normal respiratory effort, able to speak in complete sentences, no respiratory distress and no use of accessory muscles GI: Palpation (GI): Soft to palpation and nontender Extrem: Other: right leg with minimal erythema, no warmth, no open wounds Procedures Date of Service Date of Service: 07/20/22 Assessment and Plan Assessment and plan (1) Acute on chronic respiratory failure with hypoxia and hypercapnia: Status: Acute (2) GEORGE (obstructive sleep apnea): Problem details: severe Status: Acute (3) Asthma with exacerbation: Status: Acute (4) Oxygen desaturation during sleep: Status: Acute (5) Morbid obesity: Status: Acute (6) Elevated brain natriuretic peptide (BNP) level: Status: Acute (7) Pulmonary hypertension: Problem details: Likely Pickwickian syndrome Status: Acute Plan Continue diuresis as tolerated Needs to continue low-sodium diet Continue oxygen 2.5 L continuous APAP at night with oxygen while sleeping, the adjusted pressures 10-20 currently using nasal pillows continue nebs prednisone taper Will need a outpt titration PSG study A follow-up with outpatient computer technology trainer Time Spent With Patient Time: Total time managing care of this patient today ____ minutes. Progress Note: Quality Stroke Does the patient have a stroke diagnosis?: No
== END 2022-07-20 14:04 | disposition home or self-care (01) | DRG 143 ==
LOC: HO.ED 14:13 → HO.EDOVER 15:26 → HO.IMC 15:30
PROVIDERS: Nurse Practitioner Acute Care; Student in an Organized Health Care Education/Training Program; Admitting Provider Physician Assistant Medical; Emergency Provider Emergency Medicine; PCP Family Medicine; Visit Provider Physician Assistant Medical
DX: E66.2 Morbid (severe) obesity with alveolar hypoventilation (principal); J96.21 Acute and chronic respiratory failure with hypoxia; I27.29 Other secondary pulmonary hypertension; L03.115 Cellulitis of right lower limb; J45.41 Moderate persistent asthma with (acute) exacerbation; I50.32 Chronic diastolic (congestive) heart failure; J96.22 Acute and chronic respiratory failure with hypercapnia; Z99.81 Dependence on supplemental oxygen; Z71.3 Dietary counseling and surveillance; Z91.119 Patient's noncompliance with dietary regimen due to unspecified reason; Z68.41 Body mass index [BMI] 40.0-44.9, adult; Z20.822 Contact with and (suspected) exposure to COVID-19; Z79.51 Long term (current) use of inhaled steroids; Z79.899 Other long term (current) drug therapy
CPT/HCPCS: 36415; 71045; 80048; 80053; 81003; 82803; 83880; 85025; 85379; 85610; 87633; 87635; 93005; 93970; 94640; 94660; 99285; J0690; J1643; J1940; J2920

== ENCOUNTER → 2022-08-10 13:42 | Outpatient (BNVA) | payer MEDICAID, SELFPAY | PROVIDERS: PCP Family Medicine; Visit Provider Internal Medicine Pulmonary Disease | DX: J45.909 Unspecified asthma, uncomplicated (principal); G47.33 Obstructive sleep apnea (adult) (pediatric); M79.89 Other specified soft tissue disorders; Z99.81 Dependence on supplemental oxygen | CPT/HCPCS: 99212 ==

== ENCOUNTER 2022-08-11 11:42 | Outpatient (REF) | payer MEDICAID, SELFPAY ==
--- NOTE | ~2022-08-11 | US_ITS ---
EXAMINATION: US VENOUS ULTRASOUND WITH DOPPLER LOWER EXTREMITY, RIGHT CLINICAL INFORMATION: Right lower extremity edema COMPARISON: 07/16/2022, 07/03/2022 and 10/27/2021 TECHNIQUE: Ultrasound of the deep veins is performed from the hip to the calf with compression sonography and color and pulse Doppler assessment. Spectral analysis with color-flow imaging is performed. FINDINGS: There is normal venous compression and respiratory variation and augmented flow. The visualized common femoral vein, superficial femoral vein, profunda femoral vein, popliteal vein, and the trifurcation region shows no evidence of deep venous thrombosis. There is no significant popliteal fossa cyst. Peroneal vein is not well visualized due to body habitus. US/US venous duplex LE RT IMPRESSION: No DVT demonstrated in the right lower extremity. Has had 3 negative ultrasounds within the last 2 months
== END 2022-08-11 11:43 | disposition home or self-care (01) ==
LOC: HO.US 11:42
PROVIDERS: PCP Family Medicine; Visit Provider Internal Medicine Pulmonary Disease
DX: R60.0 Localized edema (principal)
CPT/HCPCS: 93971

== ENCOUNTER → 2022-09-01 13:27 | Outpatient (BNVA) | payer MEDICAID, SELFPAY | PROVIDERS: PCP Family Medicine; Referring Provider Family Medicine; Visit Provider Nurse Practitioner Family | DX: I50.812 Chronic right heart failure (principal); I27.20 Pulmonary hypertension, unspecified; G47.33 Obstructive sleep apnea (adult) (pediatric); M79.89 Other specified soft tissue disorders; F79 Unspecified intellectual disabilities; E66.01 Morbid (severe) obesity due to excess calories; Z68.41 Body mass index [BMI] 40.0-44.9, adult | CPT/HCPCS: 93005; 99212 ==

== ENCOUNTER → 2022-09-05 20:30 | Outpatient (REF) | payer MEDICAID, SELFPAY | LOC: HO.SL 20:30 | PROVIDERS: PCP Family Medicine; Visit Provider Hospitalist | DX: Z13.89 Encounter for screening for other disorder (principal) ==

== ENCOUNTER → 2022-09-13 13:39 | Outpatient (BNVA) | payer MEDICAID, SELFPAY | PROVIDERS: PCP Family Medicine; Visit Provider Internal Medicine Pulmonary Disease | DX: G47.33 Obstructive sleep apnea (adult) (pediatric) (principal); J45.909 Unspecified asthma, uncomplicated; M79.89 Other specified soft tissue disorders; Z99.81 Dependence on supplemental oxygen; Z99.89 Dependence on other enabling machines and devices | CPT/HCPCS: 99212 ==

== ENCOUNTER 2022-10-23 13:23 | Emergency (ER) | payer MEDICARE, MEDICAID, SELFPAY ==
--- NOTE | ~2022-10-23 | XR_ITS ---
EXAMINATION: XR CHEST CLINICAL INFORMATION: Cough and SOB. COMPARISON: None available. TECHNIQUE: 2 views of the chest were obtained. FINDINGS: The lungs are well-expanded and clear of acute pneumonic process. There is minimal atelectatic changes in the right middle lobe. The heart size is enlarged. Pulmonary vascularity is normal. No gross bony abnormality is seen. There is mild dextroscoliosis with 2 Aguayo rods in the dorsal spine for correction of scoliosis. Grossly no bony abnormality. XR/XR chest 2V IMPRESSION: Cardiomegaly with right middle lobe atelectasis.. Mild dextroscoliosis with 2 Aguayo rods in dorsal spine for correction of scoliosis.
--- NOTE | 2022-10-23 13:39 | ED_ITS ---
HPI - General Adult General Chief complaint: Altered Mental Status Stated complaint: low 02 Time Seen by Provider: 10/23/22 23:43 Source: family Mode of arrival: ambulatory Limitations: language barrier History of Present Illness HPI narrative: According to mother her oxygen level was low, the patient has a pulse ox at home. The patient is on oxgen at home 2L. no fever or cough. Onset (ago): hour(s) Severity: mild Related Data Home Medications Medication Instructions Recorded Confirmed econazole 1 % topical cream 1 appl topical BID 10/27/21 09/01/22 white petrolatum 42 % topical 1 ea topical BID PRN Dry Skin 10/27/21 09/01/22 ointment cetirizine 10 mg tablet 10 mg PO DAILY 01/18/22 09/01/22 fluoxetine 20 mg capsule 20 mg PO DAILY 01/18/22 09/01/22 naproxen 500 mg tablet 500 mg PO BID PRN pain 01/18/22 09/01/22 albuterol sulfate 2.5 mg/3 mL 1 amp inhalation Q4H PRN Shortness 04/05/22 09/01/22 (0.083 %) solution for nebulization Of Breath albuterol sulfate 90 mcg/actuation 2 puff inhalation Q4H PRN 04/05/22 09/01/22 aerosol inhaler (Ventolin HFA) shortness of breath or wheezing docusate sodium 100 mg capsule 1 cap PO BID PRN Constipation 04/05/22 09/01/22 fluticasone propionate 50 2 spray intranasal DAILY 04/05/22 09/01/22 mcg/actuation nasal spray,suspension lamotrigine 100 mg tablet 100 mg PO DAILY 04/05/22 09/01/22 sennosides 8.6 mg tablet (senna) 2 tab PO BEDTIME PRN constipation 04/05/22 09/01/22 arformoterol 15 mcg/2 mL solution 2 ml inhalation BID 07/03/22 09/01/22 for nebulization (Brovana) aripiprazole 5 mg tablet 5 mg PO DAILY 07/03/22 09/01/22 fluticasone propionate 230 2 puff inhalation BID 07/03/22 09/01/22 mcg-salmeterol 21 mcg/actuation HFA inhaler (Advair HFA) Previous Rx's Medication Instructions Recorded ipratropium 0.5 mg-albuterol 3 mg 3 ml inhalation TID #270 mL 12/19/21 (2.5 mg base)/3 mL nebulization soln cephalexin 500 mg capsule 500 mg PO Q6H 3 days #12 caps 07/20/22 prednisone 10 mg tablet See Taper PO DAILY #20 tabs 07/20/22 peg 3350-electrolytes 236 240 ml PO Q10M 1 day #4,000 mL 08/14/22 gram-22.74 gram-6.74 gram-5.86 gram solution (Golytely) torsemide 20 mg tablet 20 mg PO BID 30 days #60 tabs 10/03/22 Allergies Allergy/AdvReac Type Severity Reaction Status Date / Time No Known Allergies Allergy Unknown Verified 10/23/22 13:40 [No Known Allergies*] Review of Systems Review of Systems: Yes all other systems are reviewed and are negative [facility] Past Medical History Medical History Asthma Intellectual disability Intellectual disability Morbid obesity GEORGE (obstructive sleep apnea) Oxygen desaturation during sleep Pulmonary hypertension Sleep apnea Status post repair of fracture of orbit Surgical History History of esophagogastroduodenoscopy (EGD) History of open reduction and internal fixation (ORIF) procedure Status post spinal surgery Family History Family History Mother Diabetes Hypertension Father Hypertension Social History Social History Household Members: Family Housing: Apartment Do you presently have visiting nurse or other home services: Yes ([employer] 19 hours/week) Alcohol intake: never Patient Tobacco Use Status: Never used Tobacco Advance Directives: No Advance Directives Information Provided: No service: No Current occupational status: disabled Physical Exam ED Vital Signs: Vital Signs - 24 hr 10/23/22 13:40 10/23/22 22:40 Temperature 97.5 F 98.7 F Pulse Rate 99 89 Respiratory Rate 16 16 Blood Pressure 114/75 114/70 Pulse Oximetry 94 98 Oxygen Delivery Method Nasal Cannula Nasal Cannula Oxygen Flow Rate 2 BMI result Body Mass Index 45.4 Const Other: obese female with mental disabilities in no acute distress Nutritional Appearance: obese Orientation/consciousness: oriented to person Limitations: behavioral limitations HENMT Head: Yes normal to inspection Ears: external ears normal General nose exam: Normal external nose present Mouth: Normal oral and palatal mucosa present and oropharynx normal Throat: Yes posterior oropharynx normal Eyes General: appearance normal, both eyes and all related structures Neck Neck: Yes normal visual inspection Chest Chest palpation & inspection: normal inspection of the chest Resp Other: no rales or wheezing Auscultation: clear to auscultation bilaterally Cardio Jugular venous distension: no JVD Rate: regular rate Rhythm: regular rhythm Heart sounds: S1 normal heart sound present and S2 normal heart sound present GI Inspection: Yes normal to inspection Palpation (GI): Soft to palpation, nontender and No hepatosplenomegaly present Auscultation: normal bowel sounds General: Yes no CVA tenderness Back/Spine/Pelvis Back: no CVA tenderness Skin General skin exam: no rashes or lesions noted Neuro General: oriented to person Cranial nerves: Yes CN's II-XII intact bilaterally Motor exam (neuro): 5/5 motor strength present throughout Extrem General: Yes normal to inspection Psych Other: at baseline with severe disability Course Course Course Narrative: 47-year-old female with intellectual disability, asthma on 2L, oxygen desturation during sleep, mother is a caregiver and provided history, came in with a concern low oxygen reading on the pulse oximetry at home this morning. Mother also reports that she has been very fatigued today. Pt reporting chest pain today. O2 fluctuations from 88-97% on 2L. Plan: Labs, CXR, covid, EKG ordered. Reevaluation(s) Reevaluation #1: no evidence of pulmonary flair at this time will dc home Time: 00:00 Medical Decision Making Differential Diagnosis Differential Diagnoses: The differential diagnosis associated with the presentation includes (pneumonia, COPD, asthma, cardiac ischemia, CHF were all considered) Admission/Observation Consideration of admission/observation: Escalation of care including admission/observation considered (this 47yo female with significant mental disabilities and lung disease who presents for low O2 sats was considered for admission) Lab Data MDM Lab Attestation statement: I reviewed the patient's lab results. (normal WBC, normal troponin, normal BNP) 10/23/22 13:55 10/23/22 13:55 Labs: Lab Results 10/23/22 10/23/22 10/23/22 Range/Units 13:55 13:55 13:55 WBC 8.9 (4.8-10.8) X10*3/uL RBC 5.50 (4.20-5.50) X10*6/uL Hgb 11.9 L (12.0-16.0) g/dl Hct 43.1 (37.0-47.0) % MCV 78.4 L (80.0-98.0) fL MCH 21.6 L (27.0-33.0) pg MCHC 27.6 L (31.0-35.0) g/dl RDW 18.7 H (11.0-16.0) % Plt Count 255 (160-400) X10*3/uL MPV Not Reportable Immature Gran % (Auto) 0.3 (0.0-0.4) % Neut % (Auto) 78.7 H (45-73) % Lymph % (Auto) 12.0 L (20-40) % Sandoval % (Auto) 5.4 (2-11) % Eos % (Auto) 3.3 (0-4) % Baso % (Auto) 0.3 (0-2) % Lymph # (Auto) 1.1 L (1.2-4.9) X10*3/uL Sandoval # (Auto) 0.5 (0.1-1.2) X10*3/uL Eos # (Auto) 0.3 (0.0-0.4) X10*3/uL Baso # (Auto) 0.0 (0.0-0.2) X10*3/uL Abs Immat Gran (auto) 0.03 (0.00-0.03) X10*3/uL Absolute Neuts (auto) 7.0 (2.0-8.3) x10*3/uL Absolute Nucleated RBC 0.000 (0.0-0.012) X10*3/uL Nucleated RBC % (auto) 0.0 (0.0-0.2) /100WBC Smear Tech's Comments VERIFIED VBG pH (7.32-7.43) VBG pCO2 mmHg VBG pO2 mmHg VBG HCO3 (22-26) mmol/L VBG O2 Saturation % VBG Base Excess mmol/L Sodium 141 (135-145) mmol/L Potassium 3.3 D (3.3-5.1) mmol/L Chloride 95 L (96-108) mmol/L Carbon Dioxide 37 H (22-29) mmol/L Anion Gap 12 (12-20) BUN 10 (9-16) mg/dL Creatinine 0.76 (0.5-1.4) mg/dL Estim Creat Clear Calc 108.4 Estimated GFR > 60 Random Glucose 137 H (60-115) mg/dL Calcium 8.8 (8.4-10.2) mg/dL Magnesium 1.8 (1.6-2.6) mg/dL Total Bilirubin 0.7 (0.0-1.0) mg/dL Direct Bilirubin 0.3 (0.0-0.5) mg/dL AST 13 (5-31) U/L ALT 11 (0-31) U/L Alkaline Phosphatase 69 (39-117) U/L Troponin I High Sens < 2.7 (<3.5-17.0) ng/L B-Natriuretic Peptide (<100) pg/mL Total Protein 7.0 (6.5-8.0) g/dL Albumin 3.5 (3.5-5.0) g/dL COVID-19 (TANIYA) (Negative) COVID-19 Clin Com 10/23/22 10/23/22 10/23/22 Range/Units 13:55 13:55 13:56 WBC (4.8-10.8) X10*3/uL RBC (4.20-5.50) X10*6/uL Hgb (12.0-16.0) g/dl Hct (37.0-47.0) % MCV (80.0-98.0) fL MCH (27.0-33.0) pg MCHC (31.0-35.0) g/dl RDW (11.0-16.0) % Plt Count (160-400) X10*3/uL MPV Immature Gran % (Auto) (0.0-0.4) % Neut % (Auto) (45-73) % Lymph % (Auto) (20-40) % Sandoval % (Auto) (2-11) % Eos % (Auto) (0-4) % Baso % (Auto) (0-2) % Lymph # (Auto) (1.2-4.9) X10*3/uL Sandoval # (Auto) (0.1-1.2) X10*3/uL Eos # (Auto) (0.0-0.4) X10*3/uL Baso # (Auto) (0.0-0.2) X10*3/uL Abs Immat Gran (auto) (0.00-0.03) X10*3/uL Absolute Neuts (auto) (2.0-8.3) x10*3/uL Absolute Nucleated RBC (0.0-0.012) X10*3/uL Nucleated RBC % (auto) (0.0-0.2) /100WBC Smear Tech's Comments VBG pH 7.51 H (7.32-7.43) VBG pCO2 60 mmHg VBG pO2 35 mmHg VBG HCO3 48 H (22-26) mmol/L VBG O2 Saturation 56.0 % VBG Base Excess 21.7 mmol/L Sodium (135-145) mmol/L Potassium (3.3-5.1) mmol/L Chloride (96-108) mmol/L Carbon Dioxide (22-29) mmol/L Anion Gap (12-20) BUN (9-16) mg/dL Creatinine (0.5-1.4) mg/dL Estim Creat Clear Calc Estimated GFR Random Glucose (60-115) mg/dL Calcium (8.4-10.2) mg/dL Magnesium (1.6-2.6) mg/dL Total Bilirubin (0.0-1.0) mg/dL Direct Bilirubin (0.0-0.5) mg/dL AST (5-31) U/L ALT (0-31) U/L Alkaline Phosphatase (39-117) U/L Troponin I High Sens (<3.5-17.0) ng/L B-Natriuretic Peptide 87 (<100) pg/mL Total Protein (6.5-8.0) g/dL Albumin (3.5-5.0) g/dL COVID-19 (TANIYA) Negative (Negative) COVID-19 Clin Com See Note ABG Data Attestation ABG: I personally reviewed and interpreted this ABG as follows: (respiratory alkolosis) Independent Interpretation I performed an independent interpretation of an: EKG (sinus 100, no st or twave changes) and Plain X-Ray (thoracic rods in place no infiltrate, no chf) Independent Historian Clinical information obtained from an independent historian. History obtained from or confirmed by: Parent External Record Review External record reviewed: Outpatient record Prescription Management I considered prescription management with: Antibiotic (antibiotic was considered no pneumonia seen) Social Determinants Patient?s care significantly limited by Social Determinants of Health including: Low income and Problems related to primary support group Discharge Plan Discharge Clinical Impression: Supplemental oxygen dependent Patient Disposition: Home, Self-Care Instructions: Using Oxygen at Home (ED) Prescriptions: No Action ipratropium-albuterol 0.5 mg-3 mg(2.5 mg base)/3 mL solution for nebulization 3 ml inhalation TID Qty: 270 6RF peg 3350-electrolytes [Golytely] 236-22.74-6.74 -5.86 gram recon soln 240 ml PO Q10M 1 Days Qty: 4000 0RF Rx Instructions: until fecal effluent is clear; do not exceed a total volume of 2,000 mL torsemide 20 mg tablet 20 mg PO BID 30 Days Qty: 60 6RF white petrolatum 42 % ointment 1 ea topical BID PRN (Reason: Dry Skin) econazole 1 % cream 1 appl topical BID cetirizine 10 mg tablet 10 mg PO DAILY fluoxetine 20 mg capsule 20 mg PO DAILY naproxen 500 mg tablet 500 mg PO BID PRN (Reason: pain) sennosides [senna] 8.6 mg tablet 2 tab PO BEDTIME PRN (Reason: constipation) albuterol sulfate 2.5 mg /3 mL (0.083 %) solution for nebulization 1 amp inhalation Q4H PRN (Reason: Shortness Of Breath) docusate sodium 100 mg capsule 1 cap PO BID PRN (Reason: Constipation) fluticasone propionate 50 mcg/actuation spray,suspension 2 spray intranasal DAILY lamotrigine 100 mg tablet 100 mg PO DAILY albuterol sulfate [Ventolin HFA] 90 mcg/actuation HFA aerosol inhaler 2 puff inhalation Q4H PRN (Reason: shortness of breath or wheezing) aripiprazole 5 mg tablet 5 mg PO DAILY fluticasone propion-salmeterol [Advair HFA] 230-21 mcg/actuation HFA aerosol inhaler 2 puff inhalation BID arformoterol [Brovana] 15 mcg/2 mL solution for nebulization 2 ml inhalation BID prednisone 10 mg tablet See Taper PO DAILY Qty: 20 0RF Taper: Prednisone 40 mg daily for 2 Days and 0 Hour 30 mg daily for 2 Days and 0 Hour 20 mg daily for 2 Days and 0 Hour 10 mg daily for 2 Days and 0 Hour cephalexin 500 mg capsule 500 mg PO Q6H 3 Days Qty: 12 0RF Referrals: Miranda Maravilla DO [Primary Care Provider] - 3 days Stand Alone Forms: Work/School Release Interventions: ED Discharge Assessment Last Done: 10/24/22 00:18 Discharge Date/Time: 10/24/22 00:22
[2022-10-23 13:40] VITALS: BP 114/75; PULSE 99; RESP 16; TEMP 36.4; O2SAT 94; BMI 45.4
--- NOTE | 2022-10-23 13:43 | ECG_ITS ---
Test Reason : sob Blood Pressure : / mmHG Vent. Rate : 102 BPM Atrial Rate : 102 BPM P-R Int : 116 ms QRS Dur : 088 ms QT Int : 348 ms P-R-T Axes : 063 078 000 degrees QTc Int : 453 ms Sinus tachycardia Nonspecific T wave abnormality Abnormal ECG When compared with ECG of 16-JUL-2022 06:53, T wave inversion now evident in Anterior leads Referred By: Julissa Mercer Electronically Signed By:Parviz Gates
[2022-10-23 14:05] LABS: Basophils Percent Auto 0.3 % (0-2); Eosinophils Absolute Auto 0.3 X10*3/uL (0.0-0.4); Eosinophils Percent Auto 3.3 % (0-4); Hematocrit 43.1 % (37.0-47.0); Hemoglobin 11.9 g/dl (12.0-16.0); Imm Gran Abs Auto 0.03 X10*3/uL (0.00-0.03); Imm Gran Pct Auto 0.3 % (0.0-0.4); Lymphocytes Absolute Auto 1.1 X10*3/uL (1.2-4.9); MANUAL DIFF FLAG SCAN; Mean Corpuscular HGB Conc 27.6 g/dl (31.0-35.0); Mean Corpuscular Hemoglobin 21.6 pg (27.0-33.0); Mean Corpuscular Volume 78.4 fL (80.0-98.0); Monocytes Absolute Auto 0.5 X10*3/uL (0.1-1.2); Monocytes Percent Auto 5.4 % (2-11); Neutrophils Percent Auto 78.7 % (45-73); PLT CLUMP 1; Red Cell Distribution Width 18.7 % (11.0-16.0); SCAN SMEAR FLAG 1
[2022-10-23 14:05] LABS: VBG Base Excess 21.7 mmol/L; VBG HCO3 48 mmol/L (22-26); VBG pCO2 60 mmHg; VBG pH 7.51 (7.32-7.43); VBG pO2 35 mmHg
[2022-10-23 14:07] LABS: Venous Blood Gas Refer to POC result
[2022-10-23 14:24] LABS: B Type Natriuretic Peptide 87 pg/mL (<100)
[2022-10-23 14:28] LABS: Alanine Aminotransferase 11 U/L (0-31); Albumin Level 3.5 g/dL (3.5-5.0); Alkaline Phosphatase 69 U/L (39-117); Anion Gap 12 (12-20); Aspartate Amino Transferase 13 U/L (5-31); Bilirubin Direct 0.3 mg/dL (0.0-0.5); Bilirubin Total 0.7 mg/dL (0.0-1.0); Blood Urea Nitrogen 10 mg/dL (9-16); COVID-19 Test Negative (Negative); Calcium 8.8 mg/dL (8.4-10.2); Carbon Dioxide 37 mmol/L (22-29); Chloride 95 mmol/L (96-108); Creatinine Clr Calc Pharmacy 108.4; Estimated Glomerular Filt Rate > 60; Glucose Random 137 mg/dL (60-115); IDNOW Serial# BCCEAD1C; Magnesium 1.8 mg/dL (1.6-2.6); Potassium 3.3 mmol/L (3.3-5.1); Sodium 141 mmol/L (135-145)
[2022-10-23 14:35] LABS: Troponin-I High Sensitivity < 2.7 ng/L (<3.5-17.0)
[2022-10-23 14:41] LABS: White Blood Count 8.9 X10*3/uL (4.8-10.8)
[2022-10-23 14:42] LABS: Platelet Count 255 X10*3/uL (160-400); SLIDE REVIEW VERIFIED
[2022-10-23 22:40] VITALS: BP 114/70; PULSE 89; RESP 16; TEMP 37.1; O2SAT 98
[2022-10-24 00:17] VITALS: BP 118/72; PULSE 68; RESP 18; O2SAT 98
== END 2022-10-24 00:22 | disposition home or self-care (01) ==
PROVIDERS: Physician Assistant Medical; Emergency Provider Emergency Medicine; PCP Family Medicine
DX: J45.909 Unspecified asthma, uncomplicated (principal); G47.34 Idiopathic sleep related nonobstructive alveolar hypoventilation; Z99.81 Dependence on supplemental oxygen; Z20.822 Contact with and (suspected) exposure to COVID-19; I27.20 Pulmonary hypertension, unspecified; E66.01 Morbid (severe) obesity due to excess calories; Z68.42 Body mass index [BMI] 45.0-49.9, adult
CPT/HCPCS: 36415; 71046; 80048; 80076; 82803; 83735; 83880; 84484; 85025; 87635; 93005; 99283; 99284

== ENCOUNTER → 2022-10-23 13:43 | Outpatient (BNV) | payer MEDICARE, MEDICAID, SELFPAY | PROVIDERS: PCP Family Medicine; Visit Provider Internal Medicine Cardiovascular Disease | DX: R00.0 Tachycardia, unspecified (principal) | CPT/HCPCS: 93010 ==

== ENCOUNTER 2022-11-07 11:20 | Outpatient (REF) | payer MEDICARE, MEDICAID, SELFPAY ==
--- NOTE | ~2022-11-07 | XR_ITS ---
EXAMINATION: XR SHOULDER, LEFT CLINICAL INFORMATION: Pain in left shoulder COMPARISON: None available. TECHNIQUE: AP external rotation, Grashey, scapular Y, and axillary views of the left shoulder. FINDINGS: The bones and soft tissues are normal. No fracture. Glenohumeral and acromioclavicular alignment is anatomic with normal joint space. No abnormal soft tissue calcifications. XR/XR shoulder LT min 2V IMPRESSION: Normal left shoulder.
== END 2022-11-07 11:21 | disposition home or self-care (01) ==
LOC: HO.HHCX 11:20
PROVIDERS: Visit Provider Family Medicine
DX: M25.512 Pain in left shoulder (principal)
CPT/HCPCS: 73030

== ENCOUNTER 2022-11-22 19:10 | Outpatient (REF) | payer MEDICARE, MEDICAID, SELFPAY ==
[2022-11-22 19:57] LABS: Influenza A PCR NEGATIVE (Negative); Influenza B PCR NEGATIVE (Negative); Resp Syncy Virus RNA Qual PCR NEGATIVE (Negative); SARS COV2 PCR INHOUSE NEGATIVE (Negative)
== END 2022-11-22 19:11 | disposition home or self-care (01) ==
LOC: HO.HHCLNP 19:10
PROVIDERS: Visit Provider Internal Medicine
DX: J02.9 Acute pharyngitis, unspecified (principal); Z20.822 Contact with and (suspected) exposure to COVID-19
CPT/HCPCS: 0241U

== ENCOUNTER 2023-01-05 10:00 | Outpatient (RCR) | payer MEDICARE, MEDICAID, SELFPAY | END 2023-02-02 10:16 | disposition home or self-care (01) | LOC: HO.PT 10:00 | PROVIDERS: PCP Family Medicine; Visit Provider Family Medicine | DX: M25.512 Pain in left shoulder (principal) | CPT/HCPCS: 97110; 97140; 97163 ==

== ENCOUNTER 2023-01-10 13:01 | Outpatient (AMB) | payer MEDICARE, MEDICAID, SELFPAY ==
--- NOTE | 2023-01-10 13:03 | MHC.OFFVIS ---
Intake Vital Signs 01/10/23 13:04 Height 5 ft 2 in Weight 229 lb 4.492 oz BMI 41.9 BP 98/62 Blood Pressure Location Rt brachial Position Sitting Pulse 103 H Pulse Source Doppler Pulse Oximetry (%) 92 Oxygen Delivery Method Room Air Intake Visit Reasons: O2 eval Allergies No Known Allergies [No Known Allergies*] Allergy (Unknown, Verified 01/10/23 13:05) HPI O2 eval HPI Details 47-year-old lady with underlying intellectual disability, obesity, now followed for obstructive sleep apnea on CPAP, asthma, and chronic hypoxic respiratory failure on 2 L of supplemental oxygen. She denies any recent exacerbations. Patient has been using Advair, DuoNebs, Brovana nebs, and albuterol MDI/nebs with good control of her underlying symptoms. She does complain of right lower extremity swelling, lower extremity Doppler ultrasound was negative for DVT. Lower extremity edema is controlled on torsemide. [facility] Medical History (Updated 01/10/23 @ 14:03 by Sher Tesfaye MD) Pulmonary hypertension Status post repair of fracture of orbit Sleep apnea Intellectual disability Morbid obesity Intellectual disability GEORGE (obstructive sleep apnea) Oxygen desaturation during sleep Asthma Surgical History Status post spinal surgery History of open reduction and internal fixation (ORIF) procedure History of esophagogastroduodenoscopy (EGD) Family History Mother Diabetes Hypertension Father Hypertension Social History (Reviewed 01/10/23 @ 13:08 by Miranda Love [facility]) Household Members: Family Housing: Apartment Do you presently have visiting nurse or other home services: Yes ([employer] 19 hours/week) Alcohol intake: never Patient Tobacco Use Status: Never used Tobacco service: No Current occupational status: disabled Review of Systems Const Denies daytime sleepiness, Denies excessive sweating, Denies fatigue, Denies fever(s), Denies lethargy, Denies malaise, Denies night sweats, Denies snoring and Denies weight loss Eyes Denies blurry vision and Denies itchy eyes ENT Denies nasal congestion, Denies post nasal drip, Denies sinus pain, Denies sinus pressure and Denies other ( Thrush) Card Denies chest pain, Denies pedal edema, Denies dyspnea, Denies orthopnea and Denies paroxysmal nocturnal dyspnea Resp Denies cough, Denies hemoptysis, Denies excessive phlegm production, Denies dyspnea, Denies snoring and Denies wheezing GI Denies abdominal pain and Denies heartburn Musc Denies myalgias, Denies arthralgias and Denies joint swelling Skin/Breast Denies rash Neuro Denies memory loss and Denies seizure-like activity Psych Denies abnormal sleep pattern, Denies anxiety and Denies memory loss Endo Denies excessive sweating, Denies fatigue and Denies heat intolerance Miller/Lymph Denies easy bruising Aller/Immun Denies itchy eyes, Denies seasonal rhinorrhea and Denies wheezing Physical Exam Vital Signs: Last Vital Signs Pulse 103 H 01/10/23 13:04 BP 98/62 01/10/23 13:04 Pulse Ox 92 01/10/23 13:04 Oxygen Delivery Method Room Air 01/10/23 13:04 BMI result Body Mass Index 41.9 Const General: no acute distress and alert Nutritional Appearance: obese Orientation/consciousness: Other orientation findings ( oriented) HEENT Head: Yes atraumatic Eyes General: appearance normal, both eyes and all related structures Sclerae: sclerae normal EOM: EOMs intact bilaterally Neck Neck: Yes supple Lymphatic: no lymphadenopathy noted Resp Effort & Inspection: normal respiratory effort and no use of accessory muscles Auscultation: clear to auscultation bilaterally Cardio Rate: regular rate Rhythm: regular rhythm Heart sounds: no gallops, no murmurs and no rubs Skin General skin exam: other ( warm) Extrem General: No clubbing, No cyanosis and No edema Assessment & Plan Assessment & Plan (1) GEORGE (obstructive sleep apnea): Code(s): G47.33 - Obstructive sleep apnea (adult) (pediatric) Plan: Control on current CPAP therapy. Continue CPAP therapy. (2) Supplemental oxygen dependent: Code(s): Z99.81 - Dependence on supplemental oxygen Plan: Continue supplemental oxygen to maintain O2 saturation of 88-92%. Portable oxygen concentrator request placed with [facility] [place]. (3) Asthma: Code(s): J45.909 - Unspecified asthma, uncomplicated Plan: Control on current regimen of nebulized Brovana, duo nebs, Advair, and albuterol MDI. Continue current regimen. Coding Level of Care Code Est Pt Level 4 (76696) Diagnoses GEORGE (obstructive sleep apnea) G47.33 Supplemental oxygen dependent Z99.81 Asthma J45.909
[2023-01-10 13:04] VITALS: BP 98/62; PULSE 103; O2SAT 92; BMI 41.9
== END 2023-01-10 13:28 | disposition home or self-care (01) ==
PROVIDERS: PCP Family Medicine; Visit Provider Internal Medicine Pulmonary Disease
DX: G47.33 Obstructive sleep apnea (adult) (pediatric) (principal); Z99.81 Dependence on supplemental oxygen; J45.909 Unspecified asthma, uncomplicated
CPT/HCPCS: 99214

== ENCOUNTER → 2023-01-10 13:01 | Outpatient (BNVA) | payer MEDICARE, MEDICAID, SELFPAY | PROVIDERS: PCP Family Medicine; Visit Provider Internal Medicine Pulmonary Disease | DX: J45.909 Unspecified asthma, uncomplicated (principal); G47.33 Obstructive sleep apnea (adult) (pediatric); Z79.899 Other long term (current) drug therapy; Z99.81 Dependence on supplemental oxygen; Z99.89 Dependence on other enabling machines and devices | CPT/HCPCS: 99212 ==

== ENCOUNTER 2023-01-19 17:52 | Outpatient (REF) | payer MEDICARE, MEDICAID, SELFPAY ==
[2023-01-19 19:38] LABS: Influenza A PCR NEGATIVE (Negative); Influenza B PCR NEGATIVE (Negative); Resp Syncy Virus RNA Qual PCR NEGATIVE (Negative); SARS COV2 PCR INHOUSE NEGATIVE (Negative)
== END 2023-01-19 17:53 | disposition home or self-care (01) ==
LOC: HO.LNP 17:52
PROVIDERS: Visit Provider Internal Medicine
DX: J06.9 Acute upper respiratory infection, unspecified (principal); Z11.52 Encounter for screening for COVID-19
CPT/HCPCS: 0241U; 87070

== ENCOUNTER 2023-02-01 09:55 | Outpatient (REF) | payer MEDICARE, MEDICAID, SELFPAY ==
[2023-02-01 10:55] LABS: MANUAL DIFF FLAG NO
[2023-02-01 10:57] LABS: Basophils Percent Auto 0.3 % (0-2); Eosinophils Absolute Auto 0.3 X10*3/uL (0.0-0.4); Eosinophils Percent Auto 3.7 % (0-4); Hematocrit 48.3 % (37.0-47.0); Hemoglobin 13.3 g/dl (12.0-16.0); Imm Gran Abs Auto 0.03 X10*3/uL (0.00-0.03); Imm Gran Pct Auto 0.3 % (0.0-0.4); Lymphocytes Absolute Auto 1.2 X10*3/uL (1.2-4.9); Mean Corpuscular HGB Conc 27.5 g/dl (31.0-35.0); Mean Corpuscular Hemoglobin 20.5 pg (27.0-33.0); Mean Corpuscular Volume 74.4 fL (80.0-98.0); Monocytes Absolute Auto 0.6 X10*3/uL (0.1-1.2); Monocytes Percent Auto 6.5 % (2-11); Neutrophils Absolute Auto 6.5 x10*3/uL (2.0-8.3); Neutrophils Percent Auto 75.2 % (45-73); Platelet Count 261 X10*3/uL (160-400); Red Blood Count 6.49 X10*6/uL (4.20-5.50); Red Cell Distribution Width 21.5 % (11.0-16.0); White Blood Count 8.6 X10*3/uL (4.8-10.8)
[2023-02-01 11:11] LABS: Estimated Average Glucose 108 mg/dL; Hemoglobin A1c % 5.4 % (<6.0)
[2023-02-01 12:03] LABS: Alanine Aminotransferase 29 U/L (0-31); Albumin Level 3.9 g/dL (3.5-5.0); Alkaline Phosphatase 87 U/L (39-117); Anion Gap 15 (12-20); Aspartate Amino Transferase 28 U/L (5-31); Bilirubin Direct 0.2 mg/dL (0.0-0.5); Bilirubin Total 0.6 mg/dL (0.0-1.0); Blood Urea Nitrogen 10 mg/dL (9-16); Calcium 9.9 mg/dL (8.4-10.2); Carbon Dioxide 32 mmol/L (22-29); Chloride 100 mmol/L (96-108); Cholesterol 200 mg/dL (<200); Estimated Glomerular Filt Rate > 60; Glucose Random 96 mg/dL (60-115); HDL Cholesterol 75 mg/dL (>40); LDL Cholesterol Calculated 108 mg/dL (<100); Potassium 4.4 mmol/L (3.3-5.1); Sodium 143 mmol/L (135-145); Total Protein 7.7 g/dL (6.5-8.0); Triglycerides 88 mg/dL (<150)
[2023-02-01 12:18] LABS: Free T4 (Free Thyroxine) 0.98 ng/dL (0.71-1.85); Thyroid Stimulating Hormone 0.96 uIU/mL (0.32-4.0); Vitamin D 25-OH Total 17.8 ng/mL (>30)
[2023-02-02 12:54] LABS: Alpha Fetoprotein 1.8 ng/mL
== END 2023-02-01 09:56 | disposition home or self-care (01) ==
LOC: HO.LAB 09:55
PROVIDERS: PCP Family Medicine; Visit Provider Family Medicine
DX: K76.0 Fatty (change of) liver, not elsewhere classified (principal); R79.9 Abnormal finding of blood chemistry, unspecified; R60.0 Localized edema; D53.9 Nutritional anemia, unspecified
CPT/HCPCS: 36415; 80048; 80061; 80076; 82105; 82306; 83036; 84439; 84443; 85025

== ENCOUNTER 2023-04-04 13:24 | Outpatient (REF) | payer MEDICARE, MEDICAID, SELFPAY ==
--- NOTE | ~2023-04-04 | MM_ITS ---
EXAMINATION: MM SCREENING DIGITAL BREAST TOMOSYNTHESIS, BILATERAL CLINICAL INFORMATION: Screening. Asymptomatic. COMPARISON: Mammography: This study is compared with prior exams dating back to 2019. TECHNIQUE: Digital breast tomosynthesis is performed in both the craniocaudal and mediolateral oblique views along with computer-aided detection (CAD). Synthesized 2D images are generated from the tomosynthesis. FINDINGS: There are scattered areas of fibroglandular density (ACR BI-RADS breast composition Category b). There is a retroareolar asymmetry of the left breast which additional mammographic and targeted sonographic evaluation is advised. In the right breast, there are no significant masses, abnormal calcifications, or other abnormalities. MM/MM tomosynthesis screening BI IMPRESSION: Retroareolar asymmetry of the left breast warrants additional mammographic and targeted sonographic evaluation. No mammographic signs of malignancy right breast. ASSESSMENT: BI-RADS BI-RADS 0 - Incomplete: Needs additional Imaging. RECOMMENDATION: 1. Additional views of the left breast. 2. Targeted ultrasound if warranted after review of the additional views. 3. Radiology department staff will contact the patient for additional imaging. Additional Imaging required This examination should not preclude the clinical evaluation of a suspicious palpable abnormality. This patient's information was entered into a reminder system with a target due date for their next mammogram.
== END 2023-04-04 13:25 | disposition home or self-care (01) ==
LOC: HO.MAMMO 13:24
PROVIDERS: PCP Family Medicine; Visit Provider Family Medicine
DX: Z12.31 Encounter for screening mammogram for malignant neoplasm of breast (principal)
CPT/HCPCS: 77063; 77067

== ENCOUNTER → 2023-04-04 14:00 | Outpatient (BNV) | payer MEDICARE, MEDICAID, SELFPAY | PROVIDERS: PCP Family Medicine; Visit Provider Radiology Diagnostic Radiology | DX: Z12.31 Encounter for screening mammogram for malignant neoplasm of breast (principal) | CPT/HCPCS: 77063; 77067 ==

== ENCOUNTER 2023-05-01 14:04 | Outpatient (REF) | payer OTHER, SELFPAY ==
--- NOTE | ~2023-05-01 | MM_ITS ---
EXAMINATION: MM DIAGNOSTIC DIGITAL BREAST TOMOSYNTHESIS, LEFT US BREAST LIMITED, LEFT MAMMOGRAPHY: CLINICAL INFORMATION: Palpable lump in the superior portion of the left subareolar region. COMPARISON: Mammography: This study is compared with prior mammograms dating back to 2010. TECHNIQUE: Digital breast tomosynthesis is performed in both the craniocaudal and mediolateral oblique views along with computer-aided detection (CAD). Synthesized 2D images are generated from the tomosynthesis. CC spot compression in a full lateral view of the left breast were performed. FINDINGS: There are scattered areas of fibroglandular density (ACR BI-RADS breast composition Category b). In the subareolar region of the left breast, there is a hyperdense mass with irregular borders. This is the finding best in the CC and CC spot projections. ULTRASOUND: CLINICAL INFORMATION: Palpable lump in the superior portion of the left subareolar region. TECHNIQUE: Targeted sonographic evaluation was performed using a high frequency linear transducer with selected archived images for documentation. FINDINGS: LEFT BREAST: This is 17 mm irregular, complex cystic and solid mass with internal hypervascularity immediately involving the areola at the 12:00 position of the left breast. The intact skin overlying this finding is thickened. The patient the finding reveals a micronodular, hard surface. This finding corresponds to a suspicious mammographic finding. All these findings taken together suspicious for malignancy occurring in the immediate subareolar region and invading the skin. A sebaceous cyst with inflammation unlikely since there is no gross erythema of the skin and the skin surface is not smooth. Nonetheless, tissue sampling is indicated with percutaneous ultrasound-guided biopsy. MM/MM tomosynthesis added views L IMPRESSION: Abnormal 17 mm left breast mass involving the 12:00 position subareolar region with extension into the skin of the areola. This corresponds to the mammographic abnormality in question. Ultrasound-guided biopsy is advised. OVERALL ASSESSMENT: Mammography: BI-RADS 4 - Suspicious finding Ultrasound: BI-RADS 4 - Suspicious finding RECOMMENDATION: Biopsy recommended Results were discussed with the patient at time of visit. This patient's information was entered into a reminder system with a target due date for their next mammogram.
== END 2023-05-01 14:05 | disposition home or self-care (01) ==
LOC: HO.MAMMO 14:04
PROVIDERS: PCP Family Medicine; Visit Provider Family Medicine
DX: N64.89 Other specified disorders of breast (principal)
CPT/HCPCS: 76642; 77061; 77065

== ENCOUNTER → 2023-05-01 14:30 | Outpatient (BNV) | payer OTHER, SELFPAY | PROVIDERS: PCP Family Medicine; Visit Provider Radiology Diagnostic Radiology | DX: N63.25 Unspecified lump in the left breast, overlapping quadrants (principal) | CPT/HCPCS: 76642; 77061; 77065 ==

== ENCOUNTER 2023-05-02 14:40 | Outpatient (AMB) | payer OTHER, SELFPAY ==
--- NOTE | 2023-05-02 14:41 | MHC.OFFVIS ---
Intake Vital Signs 05/02/23 14:42 Height 5 ft 2 in Weight 232 lb BMI 42.4 BP 147/80 H Blood Pressure Location Rt radial Position Sitting Pulse 96 Intake Visit Reasons: US guided left breast biopsy Intake Note: Patient referred for US guided lt breast bx. Recent breast US and mammo on 05-01-23. Mass first noticed 4m ago. Patient c/o: mass feels hard. Denies pain, itch, rash. Collections Manager Required: No Accompanied by: mother Jeimy Allergies No Known Allergies [No Known Allergies*] Allergy (Unknown, Verified 05/02/23 14:42) HPI HPI Comments History of Present Illness Details Patient presents with her mother. Patient is mentally handicapped and her mother gives a collateral history. Patient underwent screening mammography with follow-up sonogram demonstrating a suspicious left breast lesion. Patient and mother deny any breast symptoms or complaints. Patient's mother does occasional breast the answer for her. Negative family history for breast cancer. Chart was reviewed and patient evaluated. [facility] Medical History Pulmonary hypertension Status post repair of fracture of orbit Sleep apnea Intellectual disability Morbid obesity Intellectual disability GEORGE (obstructive sleep apnea) Oxygen desaturation during sleep Asthma Surgical History Status post spinal surgery History of open reduction and internal fixation (ORIF) procedure History of esophagogastroduodenoscopy (EGD) Family History Mother Diabetes Hypertension Father Hypertension Social History Household Members: Family Housing: Apartment Do you presently have visiting nurse or other home services: Yes ([employer] 19 hours/week) Alcohol intake: never Comment: pt family at bedside Patient Tobacco Use Status: Never used Tobacco service: No Current occupational status: disabled Physical Exam Vital Signs: Last Vital Signs Pulse 96 05/02/23 14:42 BP 147/80 H 05/02/23 14:42 BMI result Body Mass Index 42.4 Neck Other: No cervical, periclavicular, or axillary adenopathy bilaterally. Chest Other: Chest breath sounds bilaterally. Patient has very large pendulous breasts. No obvious mass, discharge, skin changes demonstrated bilaterally. Assessment & Plan Assessment & Plan (1) Breast mass, left: Code(s): N63.20 - Unspecified lump in the left breast, unspecified quadrant Plan Patient is scheduled tomorrow for an ultrasound-guided left breast biopsy. Patient will see me approximate 1 week later to review the results. All questions answered. Plan as noted above. Coding Level of Care Code New Pt Level 4 (18310) Diagnoses Breast mass, left N63.20
[2023-05-02 14:42] VITALS: BP 147/80; PULSE 96; BMI 42.4
== END 2023-05-02 15:00 | disposition home or self-care (01) ==
PROVIDERS: PCP Family Medicine; Visit Provider Surgery
DX: N63.20 Unspecified lump in the left breast, unspecified quadrant (principal)
CPT/HCPCS: 99204

== ENCOUNTER → 2023-05-02 14:40 | Outpatient (BNVA) | payer OTHER, SELFPAY | PROVIDERS: PCP Family Medicine; Visit Provider Surgery | DX: N63.20 Unspecified lump in the left breast, unspecified quadrant (principal) | CPT/HCPCS: 99202 ==

== ENCOUNTER 2023-05-03 07:53 | Outpatient (REF) | payer OTHER, SELFPAY ==
--- NOTE | ~2023-05-03 | MM_ITS ---
PROCEDURE: US GUIDED BREAST BIOPSY, LEFT CLINICAL INFORMATION: Irregular retroareolar mass 12:00 axis anterior left breast, palpable, suspicious and recommended for biopsy. Abnormal left axillary lymph node also recommended for biopsy. COMPARISON: 05/01/2023 mammography and ultrasound left breast PROCEDURAL DETAILS: The details of the procedure, as well as the risks, benefits, and alternatives to the procedure were explained to the patient in detail and all of her questions were answered, after which written informed consent was obtained. Site and side were confirmed. 1. Prior to the procedure, sonography revealed the 12:00 subareolar left breast hypoechoic irregular vascular mass, with probable partial skin invasion, measuring 1.5 x 1.6 x 1.7 cm.. A time-out was performed, the lesion intended for biopsy was targeted, and the skin of the left periareolar breast was then marked, prepped and draped in the usual sterile fashion. Using sonographic guidance, sterile technique, and 1% lidocaine without epinephrine for local anesthesia, multiple core biopsies were obtained through the targeted area with a 14G spring loaded Sertera core biopsy device. There was real-time confirmation of appropriate needle passage. Sampling was documented. At the completion of tissue sampling, a single butterfly-shaped metallic clip was deposited at the biopsy site. 2. Attention was then given to the left axillary lymph node. Sonography revealed a hypoechoic 1.9 x 1.7 x 1.2 cm lymph node with no discernible fatty hilum, diffusely thickened cortex. The lesion intended for biopsy was targeted, and the skin of the overlying left axilla was then marked, prepped and draped in the usual sterile fashion. Using sonographic guidance, sterile technique, and 1% lidocaine without epinephrine for local anesthesia, multiple core biopsies were obtained through the inferior lymph node with a 14G spring loaded Sertera core biopsy device. There was real-time confirmation of appropriate needle passage. Sampling was documented. At the completion of tissue sampling, a single open coil metallic clip was deposited at the biopsy site. There was no evidence of immediate complication. SPECIMEN: 3 well formed core samples were obtained from both sites. DIGITAL POST-PROCEDURE MAMMOGRAPHY: Breast density: The tissue contains scattered areas of fibroglandular density. BI-RADS category B. There are no new mammographic findings demonstrated. The postprocedure 2-view direct digital mammogram reveals satisfactory and accurate positioning of both of the biopsy clips. No hematoma present. The patient tolerated the procedure well and, after assuring adequate hemostasis, was discharged in good condition after reviewing postbiopsy breast care instructions. Final pathology results are pending. MM/MM tomosynthesis diagnostic LT IMPRESSION: 1. No immediate complication from ultrasound-guided percutaneous biopsy of superior periareolar irregular mass left breast. No immediate complication from ultrasound-guided percutaneous biopsy of abnormal enlarged left axillary lymph node. 2. Ultrasound was used to localize and guide marker clip placement at both sites. 3. The 2-view direct digital postprocedure mammogram reveals satisfactory positioning of both of the biopsy clips. 4. Final pathology results are pending. A separate report with final recommendations will be issued once these results are made available.
[2023-05-03] MEDS: Lidocaine HCl 1 % 20 ML VIAL 30 ML SUBCUT (11:25)
[2023-05-03] MEDS: Sodium Bicarbonate 8.4% 50 MEQ/50 ML VIAL SUBCUT (11:26)
== END 2023-05-03 07:54 | disposition home or self-care (01) ==
LOC: HO.MAMMO 07:53
PROVIDERS: PCP Family Medicine; Visit Provider Surgery
DX: N63.20 Unspecified lump in the left breast, unspecified quadrant (principal); C50.812 Malignant neoplasm of overlapping sites of left female breast; C77.3 Secondary and unspecified malignant neoplasm of axilla and upper limb lymph nodes; Z17.0 Estrogen receptor positive status [ER+]
CPT/HCPCS: 19083; 77061; 77065; 88305; 88342; 88360; A4648

== ENCOUNTER → 2023-05-03 08:00 | Outpatient (BNV) | payer OTHER, SELFPAY | PROVIDERS: PCP Family Medicine; Visit Provider Radiology Diagnostic Radiology | DX: N63.25 Unspecified lump in the left breast, overlapping quadrants (principal) | CPT/HCPCS: 19083; 19084; 77065 ==

== ENCOUNTER 2023-05-14 11:25 | Outpatient (AMB) | payer OTHER, SELFPAY ==
--- NOTE | 2023-05-14 13:07 | MHC.OFFVIS ---
Intake Intake Visit Reasons: US guided left breast biopsy results Allergies No Known Allergies [No Known Allergies*] Allergy (Unknown, Verified 05/02/23 14:42) HPI HPI Comments History of Present Illness Details Patient presents with her mother and her cousin. Biopsy results of the left breast demonstrate both a primary lung cancer and metastatic axillary lymph node. The patient has otherwise no other post biopsy issues or complaints. [facility] Medical History Pulmonary hypertension Status post repair of fracture of orbit Sleep apnea Intellectual disability Morbid obesity Intellectual disability GEORGE (obstructive sleep apnea) Oxygen desaturation during sleep Asthma Surgical History Status post spinal surgery History of open reduction and internal fixation (ORIF) procedure History of esophagogastroduodenoscopy (EGD) Family History Mother Diabetes Hypertension Father Hypertension Social History Household Members: Family Housing: Apartment Do you presently have visiting nurse or other home services: Yes ([employer]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 Very corpulent patient. No obvious adenopathy appreciated. Assessment & Plan Assessment & Plan (1) Primary malignant neoplasm of left breast with stage 3 aston metastasis per [place] [employer] on Cancer 7th edition (N3): Code(s): C50.912 - Malignant neoplasm of unspecified site of left female breast; C77.9 - Secondary and unspecified malignant neoplasm of lymph node, unspecified Plan Current plan is to refer the patient to Oncology for adjuvant or neoadjuvant therapy for her recently diagnosed breast cancer with axillary lymph node positive disease. All questions were answered. Further interventions and studies will be directed by oncology consultation. Orders: Referrals Hematology & Oncology Referral N63.20 - Unspecified lump in the left breast, unspecified quadrant Coding Level of Care Code Est Pt Level 4 (69207) Diagnoses Primary malignant neoplasm of left breast with stage 3 aston metastasis per [place] [employer] on Cancer 7th edition (N3) C50.912; C77.9
== END 2023-05-14 11:41 | disposition home or self-care (01) ==
PROVIDERS: PCP Family Medicine; Visit Provider Surgery
DX: C50.912 Malignant neoplasm of unspecified site of left female breast (principal); C77.9 Secondary and unspecified malignant neoplasm of lymph node, unspecified
CPT/HCPCS: 99214

== ENCOUNTER → 2023-05-14 11:25 | Outpatient (BNVA) | payer OTHER, SELFPAY | PROVIDERS: PCP Family Medicine; Visit Provider Surgery | DX: C50.912 Malignant neoplasm of unspecified site of left female breast (principal); C77.3 Secondary and unspecified malignant neoplasm of axilla and upper limb lymph nodes; Z98.890 Other specified postprocedural states | CPT/HCPCS: 99212 ==

== ENCOUNTER → 2023-05-25 09:28 | Outpatient (BNV) | payer MEDICARE, OTHER, MEDICAID, SELFPAY | PROVIDERS: PCP Family Medicine; Visit Provider Internal Medicine Medical Oncology | DX: C50.112 Malignant neoplasm of central portion of left female breast (principal); C77.3 Secondary and unspecified malignant neoplasm of axilla and upper limb lymph nodes; Z92.21 Personal history of antineoplastic chemotherapy | CPT/HCPCS: 99204; 99213; 99214 ==

== ENCOUNTER → 2023-06-04 11:00 | Outpatient (REF) | payer OTHER, SELFPAY ==
--- NOTE | 2023-06-04 11:06 | CA_ITS ---
Transthoracic Echocardiogram Patient (Last, First, Middle): Brandon Lang Y Gender: Female Date of : 1975 Age: 48 Procedure Date: 06/04/2023 Procedure Type: Transthoracic Echocardiogram Location: OP Height: 157.48 cm Weight: 112.01 kg BSA: 2.09 m2 Heart Rate: 96 bpm BP: 105 / 55 mmHg Vulcanizer Rubber Plate: IVAN Referring MD: Christiana Romero MD Symptoms: breast cancer. Pre chemotherapy assessment Study Quality: Technically Difficult/w Contrast ECG Rhythm: Sinus Conclusions: - The left ventricular systolic function is normal. The visually estimated ejection fraction is between 65-70%. - No obvious valvular pathology seen on this study.(valves not well visualized). Findings Procedure Information Contrast agent, definity, is being given per protocol without apparent complications. Left Ventricle Normal left ventricular cavity size. There is normal left ventricular wall thickness. The left ventricular systolic function is normal. The visually estimated ejection fraction is between 65-70%. There is no evidence of regional wall motion abnormalities. Diastolic function is normal for age. Right Ventricle The right ventricle was not well visualized. There is low normal right ventricular systolic function. Atria The left atrium is normal in size. The right atrium was not well visualized. Aortic Valve The aortic valve was not well visualized. There is no aortic valve stenosis. There is no aortic valve regurgitation. Mitral Valve The mitral valve was not well visualized. There is no mitral valve regurgitation. There is no mitral valve stenosis. Pulmonic Valve The pulmonic valve was not well visualized. Tricuspid Valve There is trace tricuspid valve regurgitation. Tricuspid regurgitation envelope is inadequate for calculation of right ventricular systolic pressure. Great Vessels The asc aorta is normal in size. Venous The inferior vena cava was not well visualized. Pericardium/Pleural There is no evidence of pericardial effusion. Prior Study Comparison No significant change compared to prior study dated: 07/04/2022. Recommendations, Care & Conclusions No obvious valvular pathology seen on this study. Measurements 2D Linear Measurements IVSd: 1.02 0.6-0.9/0.6-1.0 cm LVIDd: 3.89 3.9-5.3/4.2-5.9 cm LVIDd Index: 1.86 2.4-3.2/2.2-3.1 cm/m2 LVIDs: 2.43 2.0-3.6 cm LVPWd: 0.86 0.7-1.1 cm LV Mass: 138.57 67-162/88-224 g LV Mass Index: 66.30 43-95/49-115 g/m2 LVOT Diam: 1.80 3.0+(-)1.3 cm 2D Systolic Function EF 4C: 67.00 >55% EF 2C: 78.70 >55% EF BiP: 72.30 >55% Mitral Valve MV Pk E: 1.01 MV PK A: 0.95 MV Decel Time: 136.00 E/A: 1.10 E'Lateral: 10.70 E'Medial: 6.42 E/E' Med: 15.70 E/E' Lat: 9.40 PHT: 40.00 MVA PHT: 5.50 Decel Zavala: 7.43 Aortic Valve AoV Pk Kahlil: 1.48 AoV Mn Kahlil: 0.99 AoV VTI: 0.26 AoV Pk Grad: 9.00 Aov Mn Grad: 5.00 HENRI Cont.VTI: 2.53 LVOT LVOT Pk Kahlil: 1.52 LVOT Mn Kahlil: 1.01 LVOT VTI: 0.26 LVOT Pk Grad: 9.00 LVOT Mn Grad: 5.00 LVOT Diam: 1.80 LVOT Area: 2.54 Diastolic Function MV Pk E: 1.01 MV Pk A: 0.95 E/A: 1.10 E'Medial: 6.42 E/E' Med: 15.70 E' Laterial: 10.70 E/E' Lat: 9.40 Right Ventricle TVS' Kahlil: 11.10 Great Vessels Aorta Sinus of Valsalva: 3.20 2.0-3.5 cm Ao Asc: 3.00 2.1-3.4 cm Pulmonary Valve PV Pk Kahlil: 1.15 Peak PV Grad: 5.00 Updated in Other Vendor System with Status of Final Aldair Robles MD electronically signed on 06/04/2023 9:40:45 AM with status of Final
== END ==
LOC: HO.CARD 11:00
PROVIDERS: PCP Family Medicine; Visit Provider Internal Medicine Medical Oncology
DX: C50.912 Malignant neoplasm of unspecified site of left female breast (principal); C77.9 Secondary and unspecified malignant neoplasm of lymph node, unspecified
CPT/HCPCS: 93306; Q9957

== ENCOUNTER → 2023-06-04 11:06 | Outpatient (BNV) | payer OTHER, SELFPAY | PROVIDERS: PCP Family Medicine; Visit Provider Internal Medicine | DX: Z01.818 Encounter for other preprocedural examination (principal); C50.912 Malignant neoplasm of unspecified site of left female breast | CPT/HCPCS: 93306 ==

== ENCOUNTER 2023-06-12 11:30 | Outpatient (AMB) | payer MEDICARE, MEDICAID, SELFPAY ==
[2023-06-12 11:47] VITALS: BP 116/65; PULSE 95
--- NOTE | 2023-06-12 11:47 | A.OFFVIS_ITS ---
Intake Vital Signs 06/12/23 11:47 Weight 232 lb BP 116/65 Blood Pressure Location Rt brachial Position Sitting Pulse 95 Intake Visit Reasons: Port-a-cath placement Intake Note: Patient here to discuss port-a-cath placement. Patient will undergo chemo therapy for Lt creast CA. Last seen by Dr. Romero on 06-08-23. Lab Clerk Required: Yes Accompanied by: Mother Allergies No Known Allergies [No Known Allergies*] Allergy (Unknown, Verified 06/12/23 11:56) HPI HPI Comments History of Present Illness Details Patient presents with her family members. She has recently diagnosed with stage III breast cancer. Patient presents here with family for Port-A-Cath placement evaluation. Chart was reviewed patient evaluated. She is known to me from earlier last month. 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 Chest Other: Chest breath sounds bilaterally, HS 1 in 2. Left breast cancer. GI Other: Abdomen corpulent, soft, benign Assessment & Plan Assessment & Plan (1) Cancer of left breast, stage 3: Code(s): C50.912 - Malignant neoplasm of unspecified site of left female breast (2) Encounter for insertion of tunneled central venous catheter (CVC) with port: Code(s): Z45.2 - Encounter for adjustment and management of vascular access device Plan Risks, benefits, alternatives of Port-A-Cath placement with fluoroscopy and Doppler ultrasonography reviewed with the patient and her family and included but not limited to bleeding, infection, pneumothorax, numbness, pain, scarring , tip migration and they wished to proceed. All questions answered. Arrangements were made for this. Coding Level of Care Code Est Pt Level 5 (42684) Diagnoses Cancer of left breast, stage 3 C50.912 Encounter for insertion of tunneled central venous catheter (CVC) with port Z45.2
== END 2023-06-12 12:01 | disposition home or self-care (01) ==
PROVIDERS: PCP Family Medicine; Visit Provider Surgery
DX: C50.912 Malignant neoplasm of unspecified site of left female breast (principal); Z45.2 Encounter for adjustment and management of vascular access device
CPT/HCPCS: 99214

== ENCOUNTER → 2023-06-12 11:30 | Outpatient (BNVA) | payer MEDICARE, MEDICAID, SELFPAY | PROVIDERS: PCP Family Medicine; Visit Provider Surgery | DX: C50.912 Malignant neoplasm of unspecified site of left female breast (principal); Z45.2 Encounter for adjustment and management of vascular access device | CPT/HCPCS: 99212 ==

== ENCOUNTER 2023-06-14 06:11 | Day surgery (SDC) | payer MEDICARE, MEDICAID, SELFPAY ==
--- NOTE | 2023-06-13 10:36 | P.CONAN_ITS ---
Documented by User: Nancy Taylor NP 06/13/23 10:39 HPI - Anesthesia Eval Consult details Narrative: 48yo F for Port-a-Cath Placement fluoroscopy doppler U/S [place]s [facility] [place] for obstructive sleep apnea on CPAP, asthma, and chronic hypoxic respiratory failure on 2 L of supplemental oxygen. Last office visit 01/2023. Stable with rec to keep O2 88-92% Pulmo cleared 2022 for colo: Based on the results of the last office evaluation, at this time patient is at low risk for pulmonary perioperative complications for the proposed colonoscopy under general anesthesia or monitored anesthesia care.? Patient does have severe underlying obstructive sleep apnea with respiratory event index of 72, thus hypoxia with sedation should be expected and addressed accordingly. If intubated, may require extubation to CPAP/BiPAP. [facility] Active Problems Active Problems: All Active Problems (Updated 05/25/23 @ 10:22 by Christiana Romero MD) Encounter for insertion of tunneled central venous catheter (CVC) with port (Acute) Cancer of left breast, stage 3 (Acute) Primary malignant neoplasm of left breast with stage 3 aston metastasis per [place] [employer] on Cancer 7th edition (N3) (Acute) Breast mass, left (Acute) Hospital discharge follow-up (Acute) Right leg swelling (Acute) Pulmonary hypertension (Acute) Morbid obesity (Acute) GEORGE (obstructive sleep apnea) (Acute) Acute on chronic respiratory failure with hypoxia and hypercapnia (Acute) Asthma with exacerbation (Acute) Oxygen desaturation during sleep (Acute) Pneumonia (Acute) Elevated brain natriuretic peptide (BNP) level (Acute) COVID (Acute) Chest pain (Acute) Localized swelling of right lower extremity (Acute) Cough (Acute) Supplemental oxygen dependent (Acute) Colon cancer screening (Acute) Dyspnea on exertion (Acute) Asthma (Acute) Past Medical History Medical History (Updated 06/14/23 @ 08:29 by Radha Yu MD) COVID Pulmonary hypertension Status post repair of fracture of orbit Sleep apnea Intellectual disability Morbid obesity Intellectual disability GEORGE (obstructive sleep apnea) Oxygen desaturation during sleep Asthma Family History Family History Mother Diabetes Hypertension Father Hypertension Maternal Uncle Throat cancer Surgical History Surgical History Status post spinal surgery History of open reduction and internal fixation (ORIF) procedure History of esophagogastroduodenoscopy (EGD) Social History Social History Household Members: Family Housing: Apartment Do you presently have visiting nurse or other home services: Yes (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) Alcohol intake: never Comment: pt family at bedside Patient Tobacco Use Status: Never used Tobacco Use of substances other than those prescribed or required for medical reasons: No Are you DNR?: No Advance Directives: No Advance Directives Information Provided: Yes service: No Current occupational status: disabled Meds Allergies Allergy/AdvReac Type Severity Reaction Status Date / Time No Known Allergies Allergy Unknown Verified 06/12/23 11:56 [No Known Allergies*] Home Medications Medication Instructions Recorded Confirmed Last Taken Type econazole 1 % topical cream 1 appl topical BID 10/27/21 06/08/23 04/05/22 History white petrolatum 42 % topical 1 ea topical BID PRN Dry Skin 10/27/21 06/08/23 Unknown History ointment cetirizine 10 mg tablet 10 mg PO DAILY 01/18/22 06/08/23 04/05/22 History fluoxetine 20 mg capsule 20 mg PO DAILY 01/18/22 06/08/23 04/05/22 History naproxen 500 mg tablet 500 mg PO BID PRN pain 01/18/22 06/08/23 Unknown History albuterol sulfate 2.5 mg/3 mL 1 amp inhalation Q4H PRN Shortness 04/05/22 06/08/23 Unknown History (0.083 %) solution for nebulization Of Breath albuterol sulfate 90 mcg/actuation 2 puff inhalation Q4H PRN 04/05/22 06/08/23 Unknown History aerosol inhaler (Ventolin HFA) shortness of breath or wheezing docusate sodium 100 mg capsule 1 cap PO BID PRN Constipation 04/05/22 06/08/23 Unknown History fluticasone propionate 50 2 spray intranasal DAILY 04/05/22 06/08/23 04/05/22 History mcg/actuation nasal spray,suspension lamotrigine 100 mg tablet 100 mg PO DAILY 04/05/22 06/08/23 04/05/22 History sennosides 8.6 mg tablet (senna) 2 tab PO BEDTIME PRN constipation 04/05/22 06/08/23 Unknown History arformoterol 15 mcg/2 mL solution 2 ml inhalation BID 07/03/22 06/08/23 Unknown History for nebulization (Brovana) aripiprazole 5 mg tablet 5 mg PO DAILY 07/03/22 06/08/23 Unknown History fluticasone propionate 230 2 puff inhalation BID 07/03/22 06/08/23 Unknown History mcg-salmeterol 21 mcg/actuation HFA inhaler (Advair HFA) Exam Pertinent Lab Results Pertinent Lab Results: Laboratory Tests 06/08/23 11:23 WBC 7.9 Hgb 14.5 Hct 49.4 H Plt Count 207 Sodium 141 Potassium 3.8 Chloride 97 Carbon Dioxide 38 H BUN 12 Creatinine 0.66 Narrative Narrative: ECHO 05/2023 Conclusions: - The left ventricular systolic function is normal. The visually estimated ejection fraction is between 65-70%. - No obvious valvular pathology seen on this study.(valves not well visualized). EKG 10/2022 Vent. Rate : 102 BPM Atrial Rate : 102 BPM P-R Int : 116 ms QRS Dur : 088 ms QT Int : 348 ms P-R-T Axes : 063 078 000 degrees QTc Int : 453 ms Sinus tachycardia Nonspecific T wave abnormality Abnormal ECG When compared with ECG of 16-JUL-2022 06:53, T wave inversion now evident in Anterior leads Assessment and Plan Assessment Anesthesia Assessment: Chart Reviewed Documented by User: Radha Yu MD 06/14/23 08:31 PMFSH Active Problems Active Problems: All Active Problems (Updated 06/14/23 @ 07:29 by Radha Yu MD) Encounter for insertion of tunneled central venous catheter (CVC) with port (Acute) Cancer of left breast, stage 3 (Acute) Primary malignant neoplasm of left breast with stage 3 aston metastasis per [place] [employer] on Cancer 7th edition (N3) (Acute) Breast mass, left (Acute) Hospital discharge follow-up (Acute) Right leg swelling (Acute) Pulmonary hypertension (Acute) Morbid obesity (Acute) GEORGE (obstructive sleep apnea) (Acute) Acute on chronic respiratory failure with hypoxia and hypercapnia (Acute) Asthma with exacerbation (Acute) Oxygen desaturation during sleep (Acute) Pneumonia (Acute) Elevated brain natriuretic peptide (BNP) level (Acute) COVID (Acute) Chest pain (Acute) Localized swelling of right lower extremity (Acute) Cough (Acute) Supplemental oxygen dependent (Acute) Colon cancer screening (Acute) Dyspnea on exertion (Acute) Asthma (Acute) Past Medical History Medical History (Updated 06/14/23 @ 08:29 by Radha Yu MD) COVID Pulmonary hypertension Status post repair of fracture of orbit Sleep apnea Intellectual disability Morbid obesity Intellectual disability GEORGE (obstructive sleep apnea) Oxygen desaturation during sleep Asthma Family History Family History Mother Diabetes Hypertension Father Hypertension Maternal Uncle Throat cancer Family history of problems with anesthesia: No Surgical History Surgical History Status post spinal surgery History of open reduction and internal fixation (ORIF) procedure History of esophagogastroduodenoscopy (EGD) History of Problems with Anesthesia: No Social History Social History Household Members: Family Housing: Apartment Do you presently have visiting nurse or other home services: Yes (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) Alcohol intake: never Comment: pt family at bedside Patient Tobacco Use Status: Never used Tobacco Use of substances other than those prescribed or required for medical reasons: No Are you DNR?: No Advance Directives: No Advance Directives Information Provided: Yes service: No Current occupational status: disabled Meds Allergies Allergy/AdvReac Type Severity Reaction Status Date / Time No Known Allergies Allergy Unknown Verified 06/12/23 11:56 [No Known Allergies*] Home Medications Medication Instructions Recorded Confirmed Last Taken Type econazole 1 % topical cream 1 appl topical BID 10/27/21 06/08/23 04/05/22 History white petrolatum 42 % topical 1 ea topical BID PRN Dry Skin 10/27/21 06/08/23 Unknown History ointment cetirizine 10 mg tablet 10 mg PO DAILY 1006/08/23 04/05/22 History fluoxetine 20 mg capsule 20 mg PO DAILY 01/18/22 06/08/23 04/05/22 History naproxen 500 mg tablet 500 mg PO BID PRN pain 01/18/22 06/08/23 Unknown History albuterol sulfate 2.5 mg/3 mL 1 amp inhalation Q4H PRN Shortness 04/05/22 06/08/23 Unknown History (0.083 %) solution for nebulization Of Breath albuterol sulfate 90 mcg/actuation 2 puff inhalation Q4H PRN 04/05/22 06/08/23 Unknown History aerosol inhaler (Ventolin HFA) shortness of breath or wheezing docusate sodium 100 mg capsule 1 cap PO BID PRN Constipation 04/05/22 06/08/23 Unknown History fluticasone propionate 50 2 spray intranasal DAILY 04/05/22 06/08/23 04/05/22 History mcg/actuation nasal spray,suspension lamotrigine 100 mg tablet 100 mg PO DAILY 04/05/22 06/08/23 04/05/22 History sennosides 8.6 mg tablet (senna) 2 tab PO BEDTIME PRN constipation 04/05/22 06/08/23 Unknown History arformoterol 15 mcg/2 mL solution 2 ml inhalation BID 07/03/22 06/08/23 Unknown History for nebulization (Brovana) aripiprazole 5 mg tablet 5 mg PO DAILY 07/03/22 06/08/23 Unknown History fluticasone propionate 230 2 puff inhalation BID 07/03/22 06/08/23 Unknown History mcg-salmeterol 21 mcg/actuation HFA inhaler (Advair HFA) Exam Height,Weight and Vital Signs: Height 5 ft 2 in Weight 107.104 kg Vital Signs Temp Pulse Resp BP Pulse Ox O2 Del Method O2 Flow Rate 06/14/23 07:26 89 18 124/75 94 Nasal Cannula 3 06/14/23 07:25 97.9 F 91 18 80 L Room Air Airway Mallampati Class: IV TM Dist: >3cm Loose/Missing/Broken Teeth: Yes (Missing 1 tooth back) Heart: RRR Lungs: Diminished but clear Assessment and Plan Assessment Anesthesia Assessment: Anesthesia Plan Discussed and Chart Reviewed Final Anesthetic Review Family History of Problems with Anesthesia: No History of Problems with Anesthesia: No NPO: Yes ASA Class: IV Final Preanesthetic Review: No Changes in Pt Med Stat, Meds/Allgs Chart Reviewed, Consent Obtained/Reviewed and Anes Risks/Benef Reviewed Patient Risk: High Procedure Risk: Intermediate Assessment/Block/Sedation in SS: Assess/Block/Sedation-SS Anesthetic Plan Anesthetic Plan: GA Disposition: Standard PACU
--- NOTE | 2023-06-13 10:41 | MHC.SHP ---
Pre-Procedural Eval Section A - 24 Hr Update-Section A only Date of Service: 06/13/23 The patient is an INPATIENT: No Changes since office visit: No Cold of Flu in the past 2 weeks, No New Medical Problems, No Changes in Medication and No Patient answered all questions The patient has been examined within 24 hours of the surgical procedure. The History & Physical has been completed within 30 days and I have reviewed it.: Yes Section B - Complete if H&P > 30 days Chief Complaint: Malignant neoplasm of unspecified site of left fem Allergies: Allergies Allergy/AdvReac Type Severity Reaction Status Date / Time No Known Allergies Allergy Unknown Verified 06/12/23 11:56 [No Known Allergies*] Plan I have reviewed the history and physical and performed a pertinent physical examination on my patient. No changes have occurred unless specified. Time Spent With Patient Time: Total time managing care of this patient today ____ minutes.
[2023-06-14] VITALS (8 sets, daily range): BP systolic 124–155; BP diastolic 75–105; PULSE 89–108; RESP 14–20; TEMP 36.2–36.9; O2SAT 80–98; BMI 43.2
--- NOTE | ~2023-06-14 | XR_ITS ---
EXAMINATION: XR CHEST CLINICAL INFORMATION: Right IJ port placement. COMPARISON: 10/23/2022 TECHNIQUE: Frontal view of the chest was obtained. FINDINGS: There has been interval placement of a right IJ port. Evaluation is technically limited by underpenetration of the radiograph and positioning of the patient. The tip appears to project over the distal SVC. No acute infiltrate. Cardiac silhouette is unchanged. XR/XR chest 1V IMPRESSION: Allowing for technical limitations, the tip of the right IJ port appears to project over the distal SVC.
--- NOTE | ~2023-06-14 | FL_ITS ---
INDICATION: Intraoperative fluoroscopy. FLUOROSCOPY: Fluoroscopy Time: 20.2 seconds Dose/air kerma: 7.16 mGy Images saved: 1 FINDINGS: A single intraoperative fluoroscopic image is submitted during reported chest port placement. Correlation with operative report. Evaluation is limited secondary to fluoroscopic technique. IMPRESSION: Intra-operative fluoroscopic imaging provided by radiology during reported chest port placement. Please refer to operative note for further information.
[2023-06-14 07:13] LABS: UPreg QC Valid YES; Urine Pregnancy NEGATIVE (NEGATIVE)
--- NOTE | 2023-06-14 07:24 | PC.NURSE ---
per mom patient uses her oxygen all the time but arrived to the hospital without her oxygen. 80 percent room air. applied 3l n/c. no sob or resp distress.
--- NOTE | 2023-06-14 07:35 | PC.NURSE ---
patient refusing iv insertion.
--- NOTE | 2023-06-14 07:42 | PC.NURSE ---
patient agitated for iv insertion multiple people by the beside to help assist insertion. extruding department supervisor by bedside and mom. wolfgang well.
--- NOTE | 2023-06-14 08:48 | P.OP_ITS ---
Operative Note Operative Note Date of Service: 06/14/23 Narrative: Preoperative diagnosis: [] Metastatic breast cancer Postop diagnosis: [] The same, IV access for chemotherapy Procedure [] right IJ Port-A-Cath placement with Doppler ultrasound guidance and fluoroscopy Surgeon: [] Rehan [employer]ionics System Engineer: [] Connie Type of Anesthesia: [] LMA Indication for surgery: [] IV access Findings: [] Patient brought to the operating room, placed on operative table in supine position, after adequate level of LMA anesthesia was induced, patient was appropriately positioned in Trendelenburg and the shoulder roll placed, the right neck and chest were prepped and draped in usual sterile fashion. Using Doppler ultrasound guidance, the right internal jugular vein was identified and cannulated using Seldinger technique. A wire waadvanced level of superior vena cava under fluoroscopic guidance. A pocket was fashioned approximately 3 fingerbreadths below the cannulation site, and tunnelled to the wire. Catheter was placed through the subcutaneous tunnel, connected to port, and the port secured to the pocket using 3-0 Vicryl sutures. Dilating sheath was then placed over the wire under fluoroscopic guidance and the wire retrieved. Pre flushed catheter was advanced over the dilating sheath to the level of distal superior vena cava. Peel-away sheath was removed without incident. Antegrade and retrograde flow recently established. Wounds were irrigated, secured hemostasis, and closed in the following manner; interrupted inverted dermal 3-0 Vicryl sutures followed by Steri-Strips and sterile dressings were applied. Sponge, needle, and instrument counts reported correct. Patient tolerated the procedure well and emerged from anesthesia stable condition. EBL minimal. Postprocedure chest x-ray pending.
== END 2023-06-14 10:55 | disposition home or self-care (01) ==
PROVIDERS: Anesthesiology; PCP Family Medicine; Visit Provider Surgery
PROC: (CPT 36561; principal; 2023-06-14 07:30)
DX: Z45.2 Encounter for adjustment and management of vascular access device (principal); C50.912 Malignant neoplasm of unspecified site of left female breast; I27.20 Pulmonary hypertension, unspecified; G47.33 Obstructive sleep apnea (adult) (pediatric); J45.909 Unspecified asthma, uncomplicated; F79 Unspecified intellectual disabilities; Z99.89 Dependence on other enabling machines and devices; Z79.899 Other long term (current) drug therapy
CPT/HCPCS: 36561; 71045; 81025; C1788; J0690; J1644; J2250; J2704; J2795; J3010

== ENCOUNTER → 2023-06-14 06:11 | Outpatient (BNV) | payer MEDICARE, MEDICAID, SELFPAY | PROVIDERS: PCP Family Medicine; Visit Provider Surgery | DX: C50.912 Malignant neoplasm of unspecified site of left female breast (principal) | CPT/HCPCS: 36561; 76937; 77001 ==

== ENCOUNTER 2023-06-19 09:13 | Outpatient (REF) | payer MEDICARE, MEDICAID, SELFPAY ==
--- NOTE | ~2023-06-19 | PE_ITS ---
EXAMINATION: PET/CT FUSION SKULL TO THIGH CLINICAL INDICATION: Left breast cancer/retroareolar mass with positive left axillary nodes. COMPARISON: Left breast mammogram with tomosynthesis. TECHNIQUE: Following intravenous administration of 20.1 mCi of F-18 FDG in right antecubital vein, whole-body imaging from skull base to proximal thigh was performed [address] imaging was obtained for correlation with fusion images performed on a separate workstation and available for interpretation. Baseline serum glucose measures 92 mg/DL. DLP: 1278.10 mGy-cm FINDINGS: SKULL BASE AND NECK: There is no abnormal metabolic activity seen in the skull base and neck. On CT, no acute intracranial abnormality seen. Visualized paranasal sinuses and mastoid air cells are well-aerated. No abnormal neck mass or lymphadenopathy seen. CHEST: There is no abnormal metabolic activity seen in the lungs, mediastinum or the pleura. There is mild skin thickening in the subareolar region of left breast with moderate metabolic activity corresponding to an SUV of 4.14. No additional areas of metabolic activity seen in the left breast or the right breast. There is solitary metabolically active lymph node in the left axilla with an SUV of 8.90. The lymph node measures 1.6 x 1.9 cm on axial slice 193/2. No additional areas of abnormal metabolic activity seen to suspect any more lymph nodes. ABDOMEN AND PELVIS: No abnormal metabolic activity seen in the abdomen or pelvis. On CT visualized liver, spleen, pancreas, gallbladder, adrenal glands and the kidneys are unremarkable. There is scattered stool in colon without distention. The urinary bladder is nondistended and unremarkable. MUSCULOSKELETAL: No abnormal metabolic activity seen. Highest metabolic activity: Bladder 154. Blood Max SUV: 2.61. Liver: Max SUV: 3.12 PET/PET CT fusion skull to thigh IMPRESSION: 1. Mild metabolic activity in the left breast subareolar region with skin thickening and an SUV of 4.14. Primary breast site. 2. There is solitary metabolically active metastatic lymph node in the left axilla with an SUV of 8.90. 3. No additional areas of abnormal metabolic activity seen in the left or right breast. 4. There is no abnormal metabolic activity seen in the lungs, mediastinum or the pleura or other lymph nodes. 5. No abnormal metabolic activity seen in the abdomen, pelvis or MSK.
== END 2023-06-19 09:14 | disposition home or self-care (01) ==
LOC: HO.PET 09:13
PROVIDERS: PCP Family Medicine; Visit Provider Internal Medicine Medical Oncology
DX: Z13.89 Encounter for screening for other disorder (principal)

== ENCOUNTER 2023-07-18 12:53 | Outpatient (AMB) | payer MEDICARE, MEDICAID, SELFPAY ==
[2023-07-18 13:09] VITALS: BP 114/60; PULSE 98; O2SAT 96; BMI 42.6
--- NOTE | 2023-07-18 13:09 | A.OFFVIS_ITS ---
Intake Vital Signs 07/18/23 13:09 Height 5 ft 2 in Weight 233 lb BMI 42.6 BP 114/60 Blood Pressure Location Rt brachial Position Sitting Pulse 98 Pulse Source Doppler Pulse Oximetry (%) 96 Oxygen Delivery Method Nasal Cannula Oxygen Flow Rate 2 Intake Visit Reasons: O2 eval Instrument Maker Required: Yes Instrument Maker Name: Miranda Samaniego Carol Allergies No Known Allergies [No Known Allergies*] Allergy (Unknown, Verified 07/18/23 13:16) HPI O2 eval HPI Details 48-year-old lady with underlying intelle ctual disability, obesity, now followed for obstructive sleep apnea on CPAP, asthma, and chronic hypoxic respiratory failure on 2 L of supplemental oxygen. Unfortunately patient has recently been diagnosed with breast cancer is now undergoing chemotherapy. She denies any recent exacerbations. Patient has been using Advair, DuoNebs, Brovana nebs, and albuterol MDI/nebs with good control of her underlying symptoms. Her lower extremity edema is controlled on torsemide. [facility] Medical History (Updated 06/14/23 @ 08:29 by Radha Yu MD) COVID Pulmonary hypertension Status post repair of fracture of orbit Sleep apnea Intellectual disability Morbid obesity Intellectual disability GEORGE (obstructive sleep apnea) Oxygen desaturation during sleep Asthma Surgical History (Updated 06/26/23 @ 10:46 by Christiana Romero MD) Status post spinal surgery History of open reduction and internal fixation (ORIF) procedure History of esophagogastroduodenoscopy (EGD) Family History Mother Diabetes Hypertension Father Hypertension Maternal Uncle Throat cancer Social History Household Members: Family Housing: Apartment Do you presently have visiting nurse or other home services: Yes (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) Alcohol intake: never Comment: counts correct Patient Tobacco Use Status: Never used Tobacco service: No Current occupational status: disabled Review of Systems Const Denies daytime sleepiness, Denies excessive sweating, Denies fatigue, Denies fever(s), Denies lethargy, Denies malaise, Denies night sweats, Denies snoring and Denies weight loss Eyes Denies blurry vision and Denies itchy eyes ENT Denies nasal congestion, Denies post nasal drip, Denies sinus pain, Denies sinus pressure and Denies other ( Thrush) Card Denies chest pain, Denies pedal edema, Denies dyspnea, Denies orthopnea and Denies paroxysmal nocturnal dyspnea Resp Denies cough, Denies hemoptysis, Denies excessive phlegm production, Denies dyspnea, Denies snoring and Denies wheezing GI Denies abdominal pain and Denies heartburn Musc Denies myalgias, Denies arthralgias and Denies joint swelling Skin/Breast Denies rash Neuro Denies memory loss and Denies seizure-like activity Psych Denies abnormal sleep pattern, Denies anxiety and Denies memory loss Endo Denies excessive sweating, Denies fatigue and Denies heat intolerance Miller/Lymph Denies easy bruising Aller/Immun Denies itchy eyes, Denies seasonal rhinorrhea and Denies wheezing Physical Exam Vital Signs: Last Vital Signs Pulse 98 07/18/23 13:09 BP 114/60 07/18/23 13:09 Pulse Ox 96 07/18/23 13:09 Oxygen Delivery Method Nasal Cannula 07/18/23 13:09 Oxygen Flow Rate 2 07/18/23 13:09 BMI result Body Mass Index 42.6 Const General: no acute distress and alert Nutritional Appearance: obese Orientation/consciousness: Other orientation findings ( oriented) HEENT Head: Yes atraumatic Eyes General: appearance normal, both eyes and all related structures Sclerae: sclerae normal EOM: EOMs intact bilaterally Neck Neck: Yes supple Lymphatic: no lymphadenopathy noted Resp Effort & Inspection: normal respiratory effort and no use of accessory muscles Auscultation: clear to auscultation bilaterally Cardio Rate: regular rate Rhythm: regular rhythm Heart sounds: no gallops, no murmurs and no rubs Skin General skin exam: other ( warm) Extrem General: No clubbing, No cyanosis and No edema Assessment & Plan Assessment & Plan (1) GEORGE (obstructive sleep apnea): Comment: Not able to use CPAP Code(s): G47.33 - Obstructive sleep apnea (adult) (pediatric) Plan: Previously controlled on CPAP. Now per patient's mother the CPAP machine is broken. Replacement machine ordered. (2) Supplemental oxygen dependent: Code(s): Z99.81 - Dependence on supplemental oxygen Plan: Continue supplemental oxygen to maintain O2 saturation of 88-92%. (3) Asthma: Code(s): J45.909 - Unspecified asthma, uncomplicated Plan: Well controlled on current regimen of Advair, Brovana, duo nebs, and albuterol MDI. Continue current regimen. Coding Level of Care Code Est Pt Level 4 (39701) Diagnoses GEORGE (obstructive sleep apnea) G47.33 Supplemental oxygen dependent Z99.81 Asthma J45.909
== END 2023-07-18 13:36 | disposition home or self-care (01) ==
PROVIDERS: PCP Family Medicine; Visit Provider Internal Medicine Pulmonary Disease
DX: G47.33 Obstructive sleep apnea (adult) (pediatric) (principal); Z99.81 Dependence on supplemental oxygen; J45.909 Unspecified asthma, uncomplicated
CPT/HCPCS: 99214

== ENCOUNTER → 2023-07-18 12:53 | Outpatient (BNVA) | payer MEDICARE, MEDICAID, SELFPAY | PROVIDERS: PCP Family Medicine; Visit Provider Internal Medicine Pulmonary Disease | DX: J45.909 Unspecified asthma, uncomplicated (principal); G47.33 Obstructive sleep apnea (adult) (pediatric); Z99.81 Dependence on supplemental oxygen | CPT/HCPCS: 99212 ==

== ENCOUNTER 2023-08-14 13:25 | Outpatient (AMB) | payer MEDICARE, MEDICAID, SELFPAY ==
[2023-08-14 13:33] VITALS: BP 110/61; PULSE 104; BMI 41.3
--- NOTE | 2023-08-14 13:33 | MHC.OFFVIS ---
Vital Signs 08/14/23 13:33 Height 5 ft 2 in Weight 225 lb 12.054 oz BMI 41.3 BP 110/61 Blood Pressure Location Lt brachial Position Sitting Pulse 104 H Intake Visit Reasons: Pos Cologard Intake Note: Brandon presents to in office follow up s/p positive cologuard. CC: Patient's mom reports that the patient has constipation and occasional blood with BMs. Patient is undergoing chemotherapy rigth now for breast cancer. Trim Mechanic Required: Yes Accompanied by: Mother Allergies No Known Allergies [No Known Allergies*] Allergy (Unknown, Verified 08/14/23 13:37) HPI HPI Pos Cologard: Details: Assessment & Plan (1) Colon cancer screening: Code(s): Z12.11 - Encounter for screening for malignant neoplasm of colon Plan: [place] Citizen #[id number], Shanika. She is here with her mother who is her laboratory geneticist since the pt is MR. They deny bowels or upper GI problems. THere are no problems prior with anesthesia or sedation. Her asthma is well controlled, she has GEORGE and no cardiac problems. No ID problems. There is no known FHX of crc or polyps. (2) GEORGE (obstructive sleep apnea): Code(s): G47.33 - Obstructive sleep apnea (adult) (pediatric) (3) Intellectual disability: Code(s): F79 - Unspecified intellectual disabilities (4) Morbid obesity: Code(s): E66.01 - Morbid (severe) obesity due to excess calories Medications: New peg 3350-electrolytes 236-22.74-6.74 -5.86 gram (Golytely) until fecal effluent is clear; do not exceed a total volume of 2,000 mL 240 mL PO Q10M 1 day 4,000 mL 0RF Z12.11 - Encounter for screening for malignant neoplasm of colon PMX Obstructive sleep apnea Asthma/restrictive lung disease Morbid obesity Intellectual disability Fatty liver Allergic rhinitis Scoliosis * SURGICAL HISTORY Spinal surgery to correct scoliosis * ALLERGIES: NKDA COLONOSCOPY BIOPSY TODAY'S VISIT PATIENT HAS BEEN LOST TO FOLLOW-UP SINCE 05/2021 [place] Citizen #Sina Velasquez She is here with her mother who is her laboratory geneticist since the pt is MR. She is now contending with breast cancer. She has had 4 chemotherapy treatments and the tumor is reducing. For now the mother and patient want to wait until after her chemo to consider colonoscopy. They deny bowels or upper GI problems. There are no problems prior with anesthesia or sedation. Her asthma is well controlled, she has GEORGE and no cardiac problems. No ID problems. There is no known FHX of crc or polyps. We will bring her back in October and will see where she is at with her chemotherapy and cancer treatment and then make decisions going forward. [facility] Medical History COVID Pulmonary hypertension Status post repair of fracture of orbit Sleep apnea Intellectual disability Morbid obesity Intellectual disability GEORGE (obstructive sleep apnea) Oxygen desaturation during sleep Asthma Surgical History Status post spinal surgery History of open reduction and internal fixation (ORIF) procedure History of esophagogastroduodenoscopy (EGD) Family History Mother Diabetes Hypertension Father Hypertension Maternal Uncle Throat cancer Social History Household Members: Family Housing: Apartment Do you presently have visiting nurse or other home services: Yes (INSURANCE CLAIM REPRESENTATIVE 19 hours/week) Alcohol intake: never Comment: counts correct Patient Tobacco Use Status: Never used Tobacco service: No Current occupational status: disabled Review of Systems Const Denies fatigue, Denies fever(s), Denies night sweats, Denies poor appetite and Denies weight loss ENT Reports Normal hearing present, Denies dental pain, Denies dysphagia, Denies hearing loss, Denies mouth pain, Denies odynophagia, Denies throat swelling, Denies tongue swelling and Reports other (Dentition adequate) Card Reports no additional complaints Resp Reports no additional complaints GI Details: Denies abdominal pain, Denies melena, Denies bloating, Denies hematochezia, Denies constipation, Denies GI cramping, Denies dysphagia, Denies excessive flatus, Denies early satiety, Denies heartburn, Denies diarrhea, Denies nausea, Denies odynophagia, Denies vomiting and Denies hematemesis Skin/Breast Denies pruritus, Denies lesions, Denies rash and Denies jaundice Neuro Reports Normal hearing present and Denies Abnormal speech present Endo Denies fatigue Aller/Immun Denies throat swelling and Denies tongue swelling Physical Exam Vital Signs: Last Vital Signs Pulse 104 H 08/14/23 13:33 BP 110/61 08/14/23 13:33 BMI result Body Mass Index 41.3 Const General: cooperative, no acute distress, well developed and well groomed Nutritional Appearance: well nourished and obese morbidly obese Orientation/consciousness: oriented to person, oriented to place and oriented to time Limitations: language barrier and other limitations HEENT Head: Yes normocephalic and Yes atraumatic Eyes General: appearance normal, both eyes and all related structures Pupils: Equal, round and reactive pupils present Neck Neck: Yes normal visual inspection and Yes no lymphadenopathy Thyroid: Thyroid normal Resp Effort & Inspection: normal respiratory effort and able to speak in complete sentences Auscultation: clear to auscultation bilaterally Cardio Rate: regular rate Rhythm: regular rhythm Heart sounds: Normal, physiologic split S2 sound present Peripheral pulses: radial pulses present and posterior tibial pulses present GI Inspection: No distended, Yes Abdominal panniculus present and Yes obesity Palpation (GI): Soft to palpation, nontender, no guarding, not rigid and No hepatosplenomegaly present Percussion: Yes normal to percussion Auscultation: normal bowel sounds Rectal Exam - Female: deferred Skin General skin exam: no rashes or lesions noted, turgor normal, skin not dry, no jaundice, No spider nevi and no striae Rashes: no rashes Nails: normal Neuro General: oriented to person, oriented to place and oriented to time Cranial nerves: Yes Equal, round and reactive pupils present and Yes Normal hearing present Speech: No Abnormal speech present Extrem General: Yes normal to inspection, No clubbing, No cyanosis and No edema Psych Appearance: grossly normal and well kempt Mental Status: other Speech and movement: Mute speech present Affect: normal affect Attitude: cooperative Thought process: Impoverished thought process present Thought content: Normal thought content present Insight: Poor insight present (Psych) Judgement: Poor judgement present (Psych) Assessment & Plan Assessment & Plan (1) Colon cancer screening: Code(s): Z12.11 - Encounter for screening for malignant neoplasm of colon Category: Medical (2) GEORGE (obstructive sleep apnea): Comment: Not able to use CPAP Code(s): G47.33 - Obstructive sleep apnea (adult) (pediatric) Category: Medical (3) Morbid obesity: Code(s): E66.01 - Morbid (severe) obesity due to excess calories Category: Medical (4) Primary malignant neoplasm of left breast with stage 3 aston metastasis per [place] [employer] Committee on Cancer 7th edition (N3): Code(s): C50.912 - Malignant neoplasm of unspecified site of left female breast; C77.9 - Secondary and unspecified malignant neoplasm of lymph node, unspecified Category: Surgical Plan [place] Citizen #Sina Live She is here with her mother who is her laboratory geneticist since the pt is MR. She is now contending with breast cancer. She has had 4 chemotherapy treatments and the tumor is reducing. For now the mother and patient want to wait until after her chemo to consider colonoscopy. They deny bowels or upper GI problems. There are no problems prior with anesthesia or sedation. Her asthma is well controlled, she has GEORGE and no cardiac problems. No ID problems. There is no known FHX of crc or polyps. We will bring her back in October and will see where she is at with her chemotherapy and cancer treatment and then make decisions going forward. Coding Level of Care Code Est Pt Level 3 (44444) Diagnoses Colon cancer screening Z12.11 GEORGE (obstructive sleep apnea) G47.33 Morbid obesity E66.01 Primary malignant neoplasm of left breast with stage 3 aston metastasis per [place] [employer] Committee on Cancer 7th edition (N3) C50.912; C77.9
== END 2023-08-14 13:50 | disposition home or self-care (01) ==
PROVIDERS: PCP Family Medicine; Visit Provider Nurse Practitioner
DX: K59.00 Constipation, unspecified (principal); R19.5 Other fecal abnormalities
CPT/HCPCS: 99213

== ENCOUNTER → 2023-08-14 13:25 | Outpatient (BNVA) | payer MEDICARE, MEDICAID, SELFPAY | PROVIDERS: PCP Family Medicine; Visit Provider Nurse Practitioner | DX: R19.5 Other fecal abnormalities (principal); G47.33 Obstructive sleep apnea (adult) (pediatric); C50.912 Malignant neoplasm of unspecified site of left female breast; C77.9 Secondary and unspecified malignant neoplasm of lymph node, unspecified; E66.01 Morbid (severe) obesity due to excess calories; Z68.41 Body mass index [BMI] 40.0-44.9, adult | CPT/HCPCS: 99212 ==

== ENCOUNTER 2023-08-30 09:02 | Outpatient (REF) | payer MEDICARE, MEDICAID, SELFPAY ==
--- NOTE | ~2023-08-30 | US_ITS ---
EXAMINATION: US ABDOMEN COMPLETE CLINICAL INFORMATION: Fatty liver, follow up. COMPARISON: Ultrasound abdomen complete 11/03/2019 and 06/02/2015. TECHNIQUE: Real-time imaging of the abdominal viscera. Technically extremely limited study secondary to body habitus. FINDINGS: PANCREAS: Poorly visualized. ABDOMINAL AORTA: Poorly visualized. INFERIOR VENA CAVA: Visualized portions are normal. LIVER: Hepatomegaly, 16.3 cm. Increased hepatic parenchymal heterogeneity and echogenicity could be associated with hepatocellular disease/hepatic steatosis and substantially limits visualization. Correlation with liver function tests and clinical exam recommended to determine further management. GALLBLADDER: Redemonstration of multiple mobile gallstones. Shadowing from gallstones severely limits visualization of the gallbladder. COMMON BILE DUCT: Normal in caliber measuring 0.4 cm in diameter. RIGHT KIDNEY: No hydronephrosis. No renal calculi. Limited visualization. The kidney measures 9.1 cm in maximum dimension. LEFT KIDNEY: No hydronephrosis. No renal calculi. Limited visualization. The kidney measures 9.7 cm in maximum dimension. SPLEEN: Normal. The spleen measures 10.2 cm in maximum dimension. FREE FLUID: None. US/US abdomen complete IMPRESSION: 1. Hepatomegaly, 16.3 cm. Increased hepatic parenchymal heterogeneity and echogenicity could be associated with hepatocellular disease/hepatic steatosis and substantially limits visualization. Correlation with liver function tests and clinical exam recommended to determine further management. 2. Redemonstration of multiple mobile gallstones. Shadowing from gallstones severely limits visualization of the gallbladder. 3. Technically extremely limited study secondary to body habitus.
== END 2023-08-30 09:03 | disposition home or self-care (01) ==
LOC: HO.US 09:02
PROVIDERS: PCP Family Medicine; Visit Provider Family Medicine
DX: K76.0 Fatty (change of) liver, not elsewhere classified (principal)
CPT/HCPCS: 76700

== ENCOUNTER 2023-09-13 12:43 | Outpatient (REF) | payer MEDICARE, MEDICAID, SELFPAY ==
--- NOTE | ~2023-09-13 | US_ITS ---
EXAMINATION: US DIAGNOSTIC ULTRASOUND BREAST, LEFT CLINICAL INFORMATION: Left breast and axilla, follow-up after treatment. Assess size of left breast primary and left axillary lymph nodes. COMPARISON: Prior ultrasounds left breast 05/01/2023, 05/03/2023. TECHNIQUE: Ultrasound of the breast is performed with real-time ramirez scale imaging and color Doppler. Imaging was focused upon the 12:00 retroareolar region in the region of the primary tumor, and a solitary metastatic left axillary lymph node. (Both have undergone prior biopsy) FINDINGS: There has been mild interval decrease in the size of the retroareolar 12:00 breast primary, which is difficult to measure due to complex shape although currently estimated at 1.4 x 0.9 x 1.1 cm, previously measuring maximally 1.7 x 1.1 x 1.7 cm, definitively smaller. A previously biopsied low left axillary lymph node currently measures approximately 1.3 x 0.9 x 1.4 cm, previously 1.9 x 1.7 x 1.2 cm, definitively smaller. There is an echogenic biopsy clip just inferior to the node. US/US breast LT limited mamm only IMPRESSION: -Both the primary malignancy in the 12:00 retroareolar left breast, and the metastatic axillary lymph node are smaller on today's examination as detailed above. Recommend continued clinical management. ASSESSMENT: BI-RADS 6 - Known biopsy proven malignancy RECOMMENDATION: 1. Patient should be managed based on the clinical impression. This patient's information was entered into a reminder system with a target due date for their next mammogram.
== END 2023-09-13 12:44 | disposition home or self-care (01) ==
LOC: HO.MAMMO 12:43
PROVIDERS: PCP Family Medicine; Visit Provider Internal Medicine Medical Oncology
DX: C50.912 Malignant neoplasm of unspecified site of left female breast (principal)
CPT/HCPCS: 76642

== ENCOUNTER → 2023-09-13 13:00 | Outpatient (BNV) | payer MEDICARE, MEDICAID, SELFPAY | PROVIDERS: PCP Family Medicine; Visit Provider Radiology Diagnostic Radiology | DX: C50.812 Malignant neoplasm of overlapping sites of left female breast (principal) | CPT/HCPCS: 76642 ==

== ENCOUNTER 2023-10-23 14:56 | Outpatient (AMB) | payer MEDICARE, MEDICAID, SELFPAY ==
--- NOTE | 2023-10-23 14:59 | A.OFFVIS_ITS ---
Vital Signs 10/23/23 15:01 Height 5 ft 2 in Weight 222 lb 10.67 oz BMI 40.7 BP 130/79 Blood Pressure Location Lt brachial Position Sitting Pulse 113 H Intake Visit Reasons: 2 month follow up Intake Note: Brandon presents in the office as a 2 month follow up. CC: Patient has stage 2 breast cancer and she is at the moment on chemo. She is not having any GI concerns. Biodiesel Product Development Manager Required: Yes Biodiesel Product Development Manager Name: [id number] Bambi Allergies No Known Allergies [No Known Allergies*] Allergy (Unknown, Verified 10/25/23 09:40) HPI HPI 2 month follow up : Details: Assessment & Plan (1) Colon cancer screening: Code(s): Z12.11 - Encounter for screening for malignant neoplasm of colon Category: Medical (2) GEORGE (obstructive sleep apnea): Comment: Not able to use CPAP Code(s): G47.33 - Obstructive sleep apnea (adult) (pediatric) Category: Medical (3) Morbid obesity: Code(s): E66.01 - Morbid (severe) obesity due to excess calories Category: Medical (4) Primary malignant neoplasm of left breast with stage 3 aston metastasis per [place] [employer] Committee on Cancer 7th edition (N3): Code(s): C50.912 - Malignant neoplasm of unspecified site of left female breast; C77.9 - Secondary and unspecified malignant neoplasm of lymph node, unspecified Category: Surgical Plan [place] #Sina Live She is here with her mother who is her medical services assistant since the pt is MR. She is now contending with breast cancer. She has had 4 chemotherapy treatments and the tumor is reducing. For now the mother and patient want to wait until after her chemo to consider colonoscopy. They deny bowels or upper GI problems. There are no problems prior with anesthesia or sedation. Her asthma is well controlled, she has GEORGE and no cardiac problems. No ID problems. There is no known FHX of crc or polyps. We will bring her back in October and will see where she is at with her chemotherapy and cancer treatment and then make decisions going forward. COLONOSCOPY BIOPSY TODAY'S VISIT Cong[place]ese # grandson interprets per patient request She is here with her mother who is her medical services assistant since the pt is MR. They deny bowels or upper GI problems. THere are no problems prior with anesthesia or sedation. Her asthma is well controlled, she has GEORGE and no cardiac problems. She uses oxygen only at night since she has lost 20 lbs. No ID problems. There is no known FHX of crc or polyps. [facility] Medical History Breast mass, left Right leg swelling Chest pain Cough Acute on chronic respiratory failure with hypoxia and hypercapnia Asthma with exacerbation Colon cancer screening Pneumonia Hospital discharge follow-up COVID Pulmonary hypertension Status post repair of fracture of orbit Sleep apnea Intellectual disability Morbid obesity Intellectual disability GEORGE (obstructive sleep apnea) Oxygen desaturation during sleep Asthma Surgical History Encounter for insertion of tunneled central venous catheter (CVC) with port Cancer of left breast, stage 3 Status post spinal surgery History of open reduction and internal fixation (ORIF) procedure History of esophagogastroduodenoscopy (EGD) Family History Mother Diabetes Hypertension Father Hypertension Maternal Uncle Throat cancer Social History Household Members: Family Housing: Apartment Do you presently have visiting nurse or other home services: Yes (ADJUSTER 19 hours/week) Alcohol intake: never Comment: counts correct Patient Tobacco Use Status: Never used Tobacco service: No Current occupational status: disabled Review of Systems Const Denies fatigue, Denies fever(s), Denies night sweats, Denies poor appetite and Denies weight loss ENT Reports Normal hearing present, Denies dental pain, Denies dysphagia, Denies hearing loss, Denies mouth pain, Denies odynophagia, Denies throat swelling, Denies tongue swelling and Reports other (Dentition adequate) Card Reports no additional complaints and Reports dyspnea on exertion Resp Reports dyspnea on exertion GI Details: Denies abdominal pain, Denies melena, Denies bloating, Denies hematochezia, Denies constipation, Denies GI cramping, Denies dysphagia, Denies excessive flatus, Denies early satiety, Denies heartburn, Denies diarrhea, Denies nausea, Denies odynophagia, Denies vomiting and Denies hematemesis Skin/Breast Denies pruritus, Denies lesions, Denies rash and Denies jaundice Neuro Reports Normal hearing present and Denies Abnormal speech present Endo Denies fatigue Aller/Immun Denies throat swelling and Denies tongue swelling Physical Exam Vital Signs: Last Vital Signs Pulse 113 H 10/23/23 15:01 BP 130/79 10/23/23 15:01 BMI result Body Mass Index 40.7 Const General: cooperative, no acute distress, well developed and well groomed Nutritional Appearance: well nourished and obese Orientation/consciousness: oriented to person, oriented to place and oriented to time Limitations: language barrier and other limitations (Low intellectual function) HEENT Head: Yes normocephalic and Yes atraumatic Eyes General: appearance normal, both eyes and all related structures Pupils: Equal, round and reactive pupils present Neck Neck: Yes normal visual inspection and Yes no lymphadenopathy Thyroid: Thyroid normal Resp Effort & Inspection: normal respiratory effort and able to speak in complete sentences Auscultation: clear to auscultation bilaterally Cardio Rate: regular rate Rhythm: regular rhythm Heart sounds: Normal, physiologic split S2 sound present Peripheral pulses: radial pulses present and posterior tibial pulses present GI Inspection: No distended, Yes Abdominal panniculus present and Yes obesity Palpation (GI): Soft to palpation, nontender, no guarding, not rigid and No hepatosplenomegaly present Percussion: Yes normal to percussion Auscultation: normal bowel sounds Rectal Exam - Female: deferred Skin General skin exam: no rashes or lesions noted, turgor normal, skin not dry, no jaundice, No spider nevi and no striae Rashes: no rashes Nails: normal Neuro General: oriented to person, oriented to place and oriented to time Cranial nerves: Yes Equal, round and reactive pupils present and Yes Normal hearing present Speech: No Abnormal speech present Extrem General: Yes normal to inspection, No clubbing, No cyanosis and No edema Psych Appearance: grossly normal and well kempt Mental Status: other Speech and movement: Slowed speech present (Psych) Affect: normal affect Attitude: cooperative Thought process: not confabulating and Impoverished thought process present Thought content: Normal thought content present Insight: Poor insight present (Psych) Judgement: Poor judgement present (Psych) Results Reviewed Results Reviewed: Laboratory Tests 10/23/23 09:48 WBC 4.7 L Hgb 11.1 L Hct 34.5 L MCV 98.0 MCH 31.5 Plt Count 222 Estimated GFR > 60 Total Bilirubin 0.3 AST 22 ALT 25 Alkaline Phosphatase 53 Assessment & Plan Assessment & Plan (1) Asthma: Code(s): J45.909 - Unspecified asthma, uncomplicated Category: Medical (2) GEORGE (obstructive sleep apnea): Code(s): G47.33 - Obstructive sleep apnea (adult) (pediatric) Category: Medical (3) Pre-op examination: Code(s): Z01.818 - Encounter for other preprocedural examination Category: Medical Plan Cong[place]ese # grandson interprets per patient request She is here with her mother who is her medical services assistant since the pt is MR. They deny bowels or upper GI problems. THere are no problems prior with anesthesia or sedation. Her asthma is well controlled, she has GEORGE and no cardiac problems. She uses oxygen only at night since she has lost 20 lbs. No ID problems. There is no known FHX of crc or polyps. Orders: Orders Colonoscopy - GI Use Only 10/23/23 G47.33 - Obstructive sleep apnea (adult) (pediatric), J45.909 - Unspecified asthma, uncomplicated, Z01.818 - Encounter for other preprocedural examination Medications: New bisacodyl (Dulcolax (bisacodyl)) 10 mg (2 x 5 mg) PO BEDTIME 4 tabs 0RF 2 days peg 3350-electrolytes 236-22.74-6.74 -5.86 gram (Golytely) until fecal effluent is clear; do not exceed a total volume of 2,000 mL 240 mL PO Q10M 4,000 mL 0RF 1 day Z12.11 - Encounter for screening for malignant neoplasm of colon Coding Level of Care Code Est Pt Level 4 (40596) Diagnoses Asthma J45.909 GEORGE (obstructive sleep apnea) G47.33 Pre-op examination Z01.818
[2023-10-23 15:01] VITALS: BP 130/79; PULSE 113; BMI 40.7
== END 2023-10-23 15:26 | disposition home or self-care (01) ==
PROVIDERS: PCP Family Medicine; Visit Provider Nurse Practitioner
DX: J45.909 Unspecified asthma, uncomplicated (principal); G47.33 Obstructive sleep apnea (adult) (pediatric); Z01.818 Encounter for other preprocedural examination
CPT/HCPCS: 99214

== ENCOUNTER → 2023-10-23 14:56 | Outpatient (BNVA) | payer MEDICARE, MEDICAID, SELFPAY | PROVIDERS: PCP Family Medicine; Visit Provider Nurse Practitioner | DX: Z01.818 Encounter for other preprocedural examination (principal); J45.909 Unspecified asthma, uncomplicated; G47.33 Obstructive sleep apnea (adult) (pediatric) | CPT/HCPCS: 99212 ==

== ENCOUNTER 2023-10-25 09:04 | Outpatient (AMB) | payer MEDICARE, MEDICAID, SELFPAY ==
[2023-10-25 09:36] VITALS: BP 100/72; PULSE 104; BMI 40.9
--- NOTE | 2023-10-25 09:36 | MHC.OFFVIS ---
Vital Signs 10/25/23 09:36 Height 5 ft 2 in Weight 223 lb 8.78 oz BMI 40.9 BP 100/72 Blood Pressure Location Lt brachial Position Sitting Pulse 104 H Pulse Source Monitor Intake Visit Reasons: r/s 09/04/23 1 year followup Referral Clerk Required: No Child Care Counselor: Child Care Counselor Present Allergies No Known Allergies [No Known Allergies*] Allergy (Unknown, Verified 10/25/23 09:40) Medication List - Last Reconciled 10/25/23 by NAILA Wheeler albuterol sulfate 1 amp inhalation Q4H PRN albuterol sulfate 90 mcg/actuation (Ventolin HFA) 2 puffs inhalation Q4H PRN arformoterol (Brovana) 2 mL inhalation BID aripiprazole 5 mg PO DAILY baclofen 10 mg PO DAILY bisacodyl (Dulcolax (bisacodyl)) 10 mg (2 x 5 mg) PO BEDTIME 2 days calcium carbonate (Calcium Antacid) 400 mg PO QID PRN cetirizine 10 mg PO DAILY cholecalciferol (vitamin D3) (Vitamin D3) 125 mcg PO DAILY dexamethasone 4 mg PO BID diclofenac sodium 1% topical docusate sodium 1 cap PO BID PRN econazole 1% 1 appl topical BID fluconazole 150 mg PO QWEEK fluoxetine 20 mg PO DAILY fluticasone furoate-vilanterol 200-25 mcg/dose (Breo Ellipta) 1 ea inhalation DAILY fluticasone propionate 50 mcg/actuation 2 sprays intranasal DAILY hydrocodone-acetaminophen 5-325 mg 1 tab PO Q4-6H PRN ipratropium-albuterol 0.5 mg-3 mg(2.5 mg base)/3 mL 3 mL inhalation TID lamotrigine 100 mg PO DAILY lidocaine-transparent dressing 4 % (LMX 4 Plus) 1 appl topical DAILY loteprednol etabonate 0.5% drps ophthalmic (eye) naproxen 500 mg PO BID PRN peg 3350-electrolytes 236-22.74-6.74 -5.86 gram (Golytely) 240 mL PO Q10M 1 day peg 3350-electrolytes 236-22.74-6.74 -5.86 gram (Golytely) 240 mL PO Q10M 1 day prednisone See Taper mg PO DAILY sennosides (senna) 2 tabs PO BEDTIME PRN torsemide 20 mg PO BID trazodone 100 mg PO BEDTIME PRN triamcinolone acetonide 0.1% 1 topical white petrolatum 42% 1 ea topical BID PRN HPI HPI r/s 09/04/23 1 year followup : Details: Brandon is a 48-year-old female with past medical history intellectual disability, asthma, severe sleep apnea with CPAP use who was [place] [facility] [place] with increased shortness of breath and treated for Congestive heart failure. She was diuresed and sent home with torsemide 20 mg daily. She was admitted again on 07/16/2022 with hypoxia, asthma exacerbation and was followed by pulmonology. Today she presents with her mother and brother who does the talking as patient is mostly nonverbal. Patient will nod to questions when asked in Moroccan. Further assists with Moroccan translation at their request. Permit signed. Since last visit she has been undergoing treatment for breast cancer with chemotherapy. According to her brother she has lost about 30 lb which has been a good thing for her. She has been more active with walking and has been breathing easier. She no longer has swelling in her lower extremities. She does not report any chest discomfort. She has some itching in the anterior chest reportedly from the cancer treatment. She has been compliant with her CPAP each night and wear supplemental oxygen as needed during the day. No fainting or falling. Compliant with all medications. [facility] Medical History Breast mass, left Right leg swelling Chest pain Cough Acute on chronic respiratory failure with hypoxia and hypercapnia Asthma with exacerbation Colon cancer screening Pneumonia Hospital discharge follow-up COVID Pulmonary hypertension Status post repair of fracture of orbit Sleep apnea Intellectual disability Morbid obesity Intellectual disability GEORGE (obstructive sleep apnea) Oxygen desaturation during sleep Asthma Surgical History Encounter for insertion of tunneled central venous catheter (CVC) with port Cancer of left breast, stage 3 Status post spinal surgery History of open reduction and internal fixation (ORIF) procedure History of esophagogastroduodenoscopy (EGD) Family History Mother Diabetes Hypertension Father Hypertension Maternal Uncle Throat cancer Social History Household Members: Family Housing: Apartment Do you presently have visiting nurse or other home services: Yes (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) Alcohol intake: never Comment: counts correct Patient Tobacco Use Status: Never used Tobacco service: No Current occupational status: disabled Review of Systems Const All systems reviewed & are unremarkable except as noted in HPI and below ENT Denies dizziness Card Denies chest pain, Denies chest pain at rest, Denies chest pain with activity, Denies leg edema, Denies palpitations, Denies dyspnea, Denies dyspnea on exertion and Denies orthopnea Resp Denies cough, Denies dyspnea and Denies dyspnea on exertion Musc Denies abnormal gait, Denies limited range of motion, Denies muscle cramps, Denies muscle weakness, Denies radiating pain into limb and Denies stiffness Neuro Denies abnormal gait and Denies dizziness Endo Denies palpitations Physical Exam Vital Signs: BMI result Body Mass Index 40.9 Const Other: nonverbal, nods appropriately according to brother, moves all extremeties, follows commands, ambulates steady General: cooperative, healthy appearing, comfortable and no acute distress Neck Neck: Yes normal visual inspection Resp Effort & Inspection: normal respiratory effort Auscultation: clear to auscultation bilaterally, no rales, no rhonchi and no wheezes Cardio Jugular venous distension: no JVD Rate: regular rate Rhythm: regular rhythm Heart sounds: S1 normal heart sound present, S2 normal heart sound present, no murmurs and no rubs Extrem Other: prior edema has improved General: Yes normal to inspection Psych Appearance: grossly normal Office Procedures EKG Details: Today, read by me, sinus tachycardia, rate 104, no acute ST or T-wave abnormalities, QTC 436 milliseconds [id number], Complete Assessment & Plan Assessment & Plan (1) Acute on chronic right heart failure: Code(s): I50.813 - Acute on chronic right heart failure Category: Medical Plan: Hx of intellectual disability, moderate to severe persistent asthma, morbid obesity, severe obstructive sleep apnea, O2 dependent was admitted [place] [facility] [place] with increased shortness of breath. She was treated for acute on chronic Congestive heart failure. BNP was elevated at 635. A CTA of the chest showed no PE. Echocardiogram 10/2021 showed normal EF, impaired relaxation, she most likely had right heart dysfunction in the setting of severe obstructive sleep apnea. She was diuresed and given torsemide 20 mg daily on discharge. She was admitted again in July with increased shortness of breath and hypoxia. At that time she was treated for acute on chronic asthma exacerbation and seen by pulmonology. She was continued on torsemide 20 mg daily. She has not had recurrent admissions since that time. She has been treated for breast cancer with chemotherapy which she has been tolerating well. Her breathing has been stable. With her weight loss she has become more active and wears her daytime oxygen only as needed. She continues to be compliant with CPAP at night. Her prior leg edema has resolved. She does not appear fluid overloaded on exam however her obesity makes this more challenging. Her primary treatment will continue to be strict compliance with CPAP use. Continue torsemide at 20 mg daily. Labs done on 10/23/2023 showed potassium 4.2, creatinine 0.58 She will continue to follow routinely with pulmonology. Cardiology office visit in 1 year, sooner if needed. (2) GEORGE (obstructive sleep apnea): Code(s): G47.33 - Obstructive sleep apnea (adult) (pediatric) Category: Medical Plan: As above, has been using CPAP (3) Morbid obesity: Code(s): E66.01 - Morbid (severe) obesity due to excess calories Category: Medical Plan: As above (4) Pulmonary hypertension: Code(s): I27.20 - Pulmonary hypertension, unspecified Category: Medical Plan: Follows with pulmonology (5) Intellectual disability: Code(s): F79 - Unspecified intellectual disabilities Category: Medical Plan Time spent on chart review, documentation, interview and assessment Coding Level of Care Code Est Pt Level 3 (31613) Diagnoses Acute on chronic right heart failure I50.813 GEORGE (obstructive sleep apnea) G47.33 Morbid obesity E66.01 Pulmonary hypertension I27.20 Intellectual disability F79 CPT Codes EKG - CPT: 40439-[id number], Complete ([id number]) Time Spent (min) 24
== END 2023-10-25 10:04 | disposition home or self-care (01) ==
PROVIDERS: PCP Family Medicine; Visit Provider Nurse Practitioner Family
DX: I50.813 Acute on chronic right heart failure (principal); G47.33 Obstructive sleep apnea (adult) (pediatric); E66.01 Morbid (severe) obesity due to excess calories; I27.20 Pulmonary hypertension, unspecified; F79 Unspecified intellectual disabilities
CPT/HCPCS: 93010; 99213

== ENCOUNTER → 2023-10-25 09:04 | Outpatient (BNVA) | payer MEDICARE, MEDICAID, SELFPAY | PROVIDERS: PCP Family Medicine; Visit Provider Nurse Practitioner Family | DX: I50.813 Acute on chronic right heart failure (principal); R06.02 Shortness of breath; E66.01 Morbid (severe) obesity due to excess calories; I27.20 Pulmonary hypertension, unspecified | CPT/HCPCS: 93005; 99212 ==

== ENCOUNTER 2023-11-14 08:37 | Outpatient (AMB) | payer MEDICARE, MEDICAID, SELFPAY ==
--- NOTE | 2023-11-14 08:47 | MHC.OFFVIS ---
Intake Visit Reasons: left breast CA Intake Note: Patient here to discuss possible lumpectomy on Lt br. Patient has completed chemo therapy. Patient c/o: has mammo scheduled on 11-21-23. 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 She has completed neoadjuvant therapy with very good response of her left breast cancer. [facility] Medical History Breast mass, left Right leg swelling Chest pain Cough Acute on chronic respiratory failure with hypoxia and hypercapnia Asthma with exacerbation Colon cancer screening Pneumonia Hospital discharge follow-up COVID Pulmonary hypertension Status post repair of fracture of orbit Sleep apnea Intellectual disability Morbid obesity Intellectual disability GEORGE (obstructive sleep apnea) Oxygen desaturation during sleep Asthma Surgical History Encounter for insertion of tunneled central venous catheter (CVC) with port Cancer of left breast, stage 3 Status post spinal surgery History of open reduction and internal fixation (ORIF) procedure History of esophagogastroduodenoscopy (EGD) Family History Mother Diabetes Hypertension Father Hypertension Maternal Uncle Throat cancer Social History Household Members: Family Housing: Apartment Do you presently have visiting nurse or other home services: Yes (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 breast exam; very large pendulous breasts, on left side some retroareolar fullness but no obvious mass demonstrated. No obvious palpable adenopathy in the left axilla. (a palpable node was palpable prior to neoadjuvant therapy) No periclavicular adenopathy appreciated. Right breast and keanu clavicular and axillary areas negative. Assessment & Plan Assessment & Plan (1) Pre-op examination: Code(s): Z01.818 - Encounter for other preprocedural examination Category: Surgical (2) Primary malignant neoplasm of left breast with stage 3 aston metastasis per [place] [employer] Committee on Cancer 7th edition (N3): Code(s): C50.912 - Malignant neoplasm of unspecified site of left female breast; C77.9 - Secondary and unspecified malignant neoplasm of lymph node, unspecified Category: Surgical Plan I Had a very lengthy discussion with the patient, and more so with her mother and other family member regarding therapeutic options which would be lumpectomy with sentinel lymph node biopsy followed by radiation therapy or mastectomy , with sentinel lymph node biopsy (per breast guidelines, if node is no longer palpable status post neoadjuvant therapy, sentinel lymph node can be attempted as opposed to axillary dissection). The patient may be amenable to lumpectomy which will depend on radiologic placement of localizers to see if this would be possible. Two lesions are being localized. If lumpectomy can encompass all pathology, it will be undertaken. [place] lymph node will be marked and attempted sentinel lymph node biopsy hopefully performed successfully as well.. If so, patient's family would like to proceed with this. The lesion is in the subareolar area and I discussed with the family that the central part of the breasts will be removed including the areola and will not be an optimal cosmetic result because of this , but nonetheless day the mother would like me to attempt lumpectomy 1st. Risks, benefits and alternatives of lumpectomy with sentinel lymph node biopsy were reviewed with family and included but not limited to bleeding, infection, recurrence, numbness, pain, scarring, flap nonhealing and they wished to proceed. If the localizer placement does not allow for lumpectomy, this, patient may need mastectomy. If post resection demonstrates residual microscopic tumor, patient may also need completion mastectomy. All questions answered. Arrangements will be made for this; (localizer and nuclear med respectively for lumpectomy and sentinel lymph node biopsy) Coding Level of Care Code Est Pt Level 5 (62860) Diagnoses Pre-op examination Z01.818 Primary malignant neoplasm of left breast with stage 3 aston metastasis per [place] [employer] Committee on Cancer 7th edition (N3) C50.912; C77.9
== END 2023-11-14 09:17 | disposition home or self-care (01) ==
PROVIDERS: PCP Family Medicine; Visit Provider Surgery
DX: Z01.818 Encounter for other preprocedural examination (principal); C50.912 Malignant neoplasm of unspecified site of left female breast; C77.9 Secondary and unspecified malignant neoplasm of lymph node, unspecified
CPT/HCPCS: 99215

== ENCOUNTER → 2023-11-14 08:37 | Outpatient (BNVA) | payer MEDICARE, MEDICAID, SELFPAY | PROVIDERS: PCP Family Medicine; Visit Provider Surgery | DX: Z01.818 Encounter for other preprocedural examination (principal); C50.912 Malignant neoplasm of unspecified site of left female breast; C77.9 Secondary and unspecified malignant neoplasm of lymph node, unspecified | CPT/HCPCS: 99212 ==

== ENCOUNTER 2023-11-21 08:38 | Outpatient (REF) | payer MEDICARE, MEDICAID, SELFPAY ==
[2023-11-21 12:19] LABS: Alanine Aminotransferase 19 U/L (0-31); Albumin Level 3.6 g/dL (3.5-5.0); Alkaline Phosphatase 59 U/L (39-117); Anion Gap 11 (12-20); Aspartate Amino Transferase 21 U/L (5-31); Bilirubin Direct 0.2 mg/dL (0.0-0.5); Bilirubin Total 0.4 mg/dL (0.0-1.0); Blood Urea Nitrogen 8 mg/dL (9-16); Calcium 9.2 mg/dL (8.4-10.2); Carbon Dioxide 31 mmol/L (22-29); Chloride 103 mmol/L (96-108); Estimated Glomerular Filt Rate > 60; Glucose Random 92 mg/dL (60-115); Potassium 3.9 mmol/L (3.3-5.1); Sodium 141 mmol/L (135-145); Total Protein 6.5 g/dL (6.5-8.0)
== END 2023-11-21 08:39 | disposition home or self-care (01) ==
LOC: HO.HHCL 08:38
PROVIDERS: Visit Provider Internal Medicine
DX: B35.3 Tinea pedis (principal); B35.1 Tinea unguium
CPT/HCPCS: 36415; 80053; 82248

== ENCOUNTER 2023-11-22 12:48 | Outpatient (REF) | payer MEDICARE, MEDICAID, SELFPAY ==
--- NOTE | ~2023-11-22 | MM_ITS ---
EXAMINATION: MM DIAGNOSTIC DIGITAL BREAST TOMOSYNTHESIS, LEFT CLINICAL INFORMATION: Patient status post neoadjuvant chemotherapy, stopped 15 days prior. Evaluate lesion size. COMPARISON: -Mammography: 05/03/2023 -Ultrasound left breast 09/13/2023 -PET/CT 06/19/2023. TECHNIQUE: Digital left breast tomosynthesis is performed in both the craniocaudal and mediolateral oblique views along with computer-aided detection (CAD). Synthesized 2D images are generated from the tomosynthesis. FINDINGS: There are scattered areas of fibroglandular density (ACR BI-RADS breast composition Category b). There has been no significant interval change in the size or appearance of the retroareolar mass with internal biopsy clip when compared with 09/13/2023 ultrasound. MM/MM tomosynthesis diagnostic LT IMPRESSION: There are no significant changes from prior study. ASSESSMENT: BI-RADS BI-RADS 6 - Known biopsy proven malignancy RECOMMENDATION: Continued oncologic/surgical management recommended. Results were provided to the patient at time of visit by the technologist.
== END 2023-11-22 12:49 | disposition home or self-care (01) ==
LOC: HO.MAMMO 12:48
PROVIDERS: PCP Family Medicine; Visit Provider Internal Medicine Medical Oncology
DX: Z85.3 Personal history of malignant neoplasm of breast (principal)
CPT/HCPCS: 77061; 77065

== ENCOUNTER 2023-11-26 09:44 | Outpatient (REF) | payer MEDICARE, MEDICAID, SELFPAY ==
--- NOTE | ~2023-11-26 | MM_ITS ---
EXAMINATION: MM MAMMOGRAM GUIDED RFID LOCALIZATION BREAST, LEFT CLINICAL INFORMATION: 48-year-old mentally challenged female, status post neoadjuvant chemotherapy for left breast retroareolar carcinoma with positive left axillary lymph node, for localization of both sites. COMPARISON: Prior ultrasound left breast 05/01/2023. Left breast ultrasound-guided biopsy 2 sites 05/03/2023. PET/CT 06/19/2023. Left mammography 11/22/2023, 09/13/2023, 05/03/2023. TECHNIQUE NEEDLE LOC: Proper informed consent is obtained from the patient's brother (her proxy, who also served as summer camp counselor) after discussion of the procedure, potential risks and complications, and alternatives including declining the procedure today. Patient was given an opportunity for questions. The patient and her proxy appeared to understand. The patient consented to the procedure and signed the consent form. Please note, the patient was extremely agitated, screaming and kicking during the procedure, making it nearly impossible to perform. The retroareolar localization was performed successfully despite these limitations with good marker placement, however the patient could not tolerate localization of the left axillary node. GUIDANCE: Digital mammography. APPROACH: Cranio-caudal. TARGET: Butterfly-shaped biopsy clip. ANESTHESIA: carbonated lidocaine 1%: 3 mL. LOCALIZATION SYSTEM: [employer] LOCallizer Wire-Free Guidance System with 12g needle applicator. RADIOFREQUENCY TAG: ID # [id number] DERMATOTOMY: Single 1 mm skin-kalpana dermatotomy performed. RF Tag ID confirmed with LOCalizer Guidance System prior to placement. The skin is prepped and local anesthesia administered. The needle is positioned and RFID tag deployed. Final images demonstrate the LOCalizer RF tag to reside immediately posterior to the biopsy clip, and good position despite patient motion and agitation. There were no immediate complications. Dressing placed and home instructions reviewed with the proxy. MM/MM RF Tag device add IMPRESSION: -Status post successful left breast retroareolar RFID localization of biopsy clip. Please note, the patient was extremely agitated, caking and screening during the procedure, making it near impossible to perform. Despite this, successful placement of the retroareolar tag was ultimately performed. -The patient would not tolerate further procedure to localize the left axillary lymph node previously biopsied due to agitation. -If the patient undergoes left sentinel node injection, the patient will need conscious sedation of some sort. Procedure and limitations discussed with Dr. Van via secure text at 11:30 AM, 11/26/2023.
--- NOTE | ~2023-11-26 | MM_ITS ---
EXAMINATION: MM MAMMOGRAM GUIDED RFID LOCALIZATION BREAST, LEFT CLINICAL INFORMATION: 48-year-old mentally challenged female, status post neoadjuvant chemotherapy for left breast retroareolar carcinoma with positive left axillary lymph node, for localization of both sites. COMPARISON: Prior ultrasound left breast 05/01/2023. Left breast ultrasound-guided biopsy 2 sites 05/03/2023. PET/CT 06/19/2023. Left mammography 11/22/2023, 09/13/2023, 05/03/2023. TECHNIQUE NEEDLE LOC: Proper informed consent is obtained from the patient's brother (her proxy, who also served as presentation designer) after discussion of the procedure, potential risks and complications, and alternatives including declining the procedure today. Patient was given an opportunity for questions. The patient and her proxy appeared to understand. The patient consented to the procedure and signed the consent form. Please note, the patient was extremely agitated, screaming and kicking during the procedure, making it nearly impossible to perform. The retroareolar localization was performed successfully despite these limitations with good marker placement, however the patient could not tolerate localization of the left axillary node. GUIDANCE: Digital mammography. APPROACH: Cranio-caudal. TARGET: Butterfly-shaped biopsy clip. ANESTHESIA: carbonated lidocaine 1%: 3 mL. LOCALIZATION SYSTEM: [employer] LOCallizer Wire-Free Guidance System with 12g needle applicator. RADIOFREQUENCY TAG: ID # [id number] DERMATOTOMY: Single 1 mm skin-kalpana dermatotomy performed. RF Tag ID confirmed with LOCalizer Guidance System prior to placement. The skin is prepped and local anesthesia administered. The needle is positioned and RFID tag deployed. Final images demonstrate the LOCalizer RF tag to reside immediately posterior to the biopsy clip, and good position despite patient motion and agitation. There were no immediate complications. Dressing placed and home instructions reviewed with the proxy. MM/MM RF Tag device LT IMPRESSION: -Status post successful left breast retroareolar RFID localization of biopsy clip. Please note, the patient was extremely agitated, caking and screening during the procedure, making it near impossible to perform. Despite this, successful placement of the retroareolar tag was ultimately performed. -The patient would not tolerate further procedure to localize the left axillary lymph node previously biopsied due to agitation. -If the patient undergoes left sentinel node injection, the patient will need conscious sedation of some sort. Procedure and limitations discussed with Dr. Van via secure text at 11:30 AM, 11/26/2023.
[2023-11-26] MEDS: Lidocaine HCl 1 % 20 ML VIAL 3 ML SUBCUT (11:17)
[2023-11-26] MEDS: Sodium Bicarbonate 8.4% 50 MEQ/50 ML VIAL SUBCUT (11:19)
== END 2023-11-26 09:45 | disposition home or self-care (01) ==
LOC: HO.MAMMO 09:44
PROVIDERS: PCP Family Medicine; Visit Provider Surgery
DX: C50.912 Malignant neoplasm of unspecified site of left female breast (principal); C77.9 Secondary and unspecified malignant neoplasm of lymph node, unspecified
CPT/HCPCS: 19281; 19282; C1819

== ENCOUNTER → 2023-11-26 10:00 | Outpatient (BNV) | payer MEDICARE, MEDICAID, SELFPAY | PROVIDERS: PCP Family Medicine; Visit Provider Radiology Diagnostic Radiology | DX: C50.912 Malignant neoplasm of unspecified site of left female breast (principal) | CPT/HCPCS: 19281 ==

== ENCOUNTER → 2023-12-06 09:36 | Outpatient (REF) | payer MEDICARE, MEDICAID, SELFPAY ==
--- NOTE | ~2023-12-06 | NM_ITS ---
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 COMPARISON: Localization 11/26/2023. Mammography left 11/22/2023, ultrasound left breast 09/13/2023. PET/CT 06/19/2023. TECHNIQUE: Right breast lymphoscintigraphy injection was performed . Approximately 1.25 mCi of technetium 99m filtered sulfur colloid and 0.8 mL of saline in 4 aliquots was injected in 4 quadrants intradermally around the left breast areola. Images were obtained in AP, oblique and lateral views 30 minutes later. FINDINGS: There is isotope activity in four-quadrant around left breast areola following injection. There are at least 3 areas of isotope activity along the left mid axilla suggestive of multiple lymph nodes. Strongest activity is proximal left axilla, likely within the sentinel node. NM/NM sentinel node w imaging IMPRESSION: At least 3 small lymph nodes seen in last mid axilla on right breast lymphoscintigraphy. Thank you for the courtesy of your referral. Electronically signed by: Melquiades Francisco MD 12/06/2023 01:47 PM EDT
== END ==
LOC: HO.NUCMED 09:36
PROVIDERS: PCP Family Medicine; Visit Provider Surgery
DX: C50.912 Malignant neoplasm of unspecified site of left female breast (principal); C77.9 Secondary and unspecified malignant neoplasm of lymph node, unspecified
CPT/HCPCS: 78195; A9541

== ENCOUNTER 2023-12-07 06:55 | Day surgery (SDC) | payer MEDICARE, MEDICAID, SELFPAY ==
[2023-11-29 13:19] VITALS: BMI 40.9
--- NOTE | 2023-12-05 14:28 | HO.ANESPROP2 ---
Documented by User: Nancy Taylor NP 12/05/23 14:33 HPI - Anesthesia Eval Consult details Narrative: 48yo F for Left Breast Lumpectomy w/LOCalizer, [place] Node Biopsy s/p port insertion 06/2023 with GA-LMA 4 Pulmo optimized: At this time patient is at low risk for pulmonary preoperative complications for the proposed breast cancer removal under general anesthesia. Patient does have underlying significant obstructive sleep apnea with supplemental oxygen dependency, thus extubation to BiPAP may be required. Supplemental O2 prn Follows [facility] cardiology. Stable at 10/2023. Family notes increased exercise (walking) with intentional weight loss. 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 per [place] [employer] on Cancer 7th edition (N3) (Acute) Pulmonary hypertension (Acute) Morbid obesity (Acute) GEORGE (obstructive sleep apnea) (Acute) Oxygen desaturation during sleep (Acute) Elevated brain natriuretic peptide (BNP) level (Acute) Localized swelling of right lower extremity (Acute) Supplemental oxygen dependent (Acute) Dyspnea on exertion (Acute) Asthma (Acute) Past Medical History Medical History Breast mass, left Right leg swelling Chest pain Cough Acute on chronic respiratory failure with hypoxia and hypercapnia Asthma with exacerbation Colon cancer screening Pneumonia Hospital discharge follow-up COVID Pulmonary hypertension Status post repair of fracture of orbit Sleep apnea Intellectual disability Morbid obesity Intellectual disability GEORGE (obstructive sleep apnea) Oxygen desaturation during sleep Asthma Family History Family History Mother Diabetes Hypertension Father Hypertension Maternal Uncle Throat cancer Family history of problems with anesthesia: No Surgical History Surgical History Encounter for insertion of tunneled central venous catheter (CVC) with port Cancer of left breast, stage 3 Status post spinal surgery History of open reduction and internal fixation (ORIF) procedure History of esophagogastroduodenoscopy (EGD) History of Problems with Anesthesia: No Social History Social History Household Members: Family Housing: Apartment Are you a primary care information associate to a significant other at home: No Do you presently have visiting nurse or other home services: Yes ([employer] 19 hours/week) Alcohol intake: never Comment: counts correct Patient Tobacco Use Status: Never used Tobacco Use of substances other than those prescribed or required for medical reasons: No Are you DNR?: No Advance Directives: Yes Advance Directives Information Provided: No Advance Directives on File: Yes Advance Directives Date on File: 08/14/18 Recently lost weight without trying: No service: No Current occupational status: disabled Meds Allergies Allergy/AdvReac Type Severity Reaction Status Date / Time No Known Allergies Allergy Unknown Verified 12/07/23 08:54 [No Known Allergies*] Home Medications ?Medication ?Instructions ?Recorded ?Confirmed ?Last Taken ?Type econazole 1 % topical cream 1 appl topical BID 10/27/21 10/25/23 04/05/22 History white petrolatum 42 % topical 1 ea topical BID PRN Dry Skin 10/27/21 10/25/23 Unknown History ointment cetirizine 10 mg tablet 10 mg PO DAILY 01/18/22 11/29/23 04/05/22 History fluoxetine 20 mg capsule 20 mg PO DAILY 01/18/22 11/29/23 04/05/22 History naproxen 500 mg tablet 500 mg PO BID PRN pain 01/18/22 10/25/23 Unknown History albuterol sulfate 2.5 mg/3 mL 1 amp inhalation Q4H PRN Shortness 04/05/22 11/29/23 Unknown History (0.083 %) solution for nebulization Of Breath albuterol sulfate 90 mcg/actuation 2 puff inhalation Q4H PRN 04/05/22 11/29/23 Unknown History aerosol inhaler (Ventolin HFA) shortness of breath or wheezing docusate sodium 100 mg capsule 1 cap PO BID PRN Constipation 04/05/22 11/29/23 Unknown History fluticasone propionate 50 2 spray intranasal DAILY 04/05/22 11/29/23 04/05/22 History mcg/actuation nasal spray,suspension lamotrigine 100 mg tablet 100 mg PO DAILY 04/05/22 11/29/23 04/05/22 History sennosides 8.6 mg tablet (senna) 2 tab PO BEDTIME PRN constipation 04/05/22 11/29/23 Unknown History arformoterol 15 mcg/2 mL solution 2 ml inhalation BID 07/03/22 10/25/23 Unknown History for nebulization (Brovana) aripiprazole 5 mg tablet 5 mg PO DAILY 07/03/22 11/29/23 Unknown History baclofen 10 mg tablet 10 mg PO DAILY 08/14/23 11/29/23 Unknown History calcium carbonate (Calcium Antacid) 400 mg PO QID PRN heartburn 08/14/23 11/29/23 Unknown History trazodone 50 mg tablet 100 mg PO BEDTIME PRN Insomnia 08/14/23 11/29/23 Unknown History triamcinolone acetonide 0.1 % 1 topical 08/14/23 10/25/23 Unknown History topical ointment fluconazole 150 mg tablet 150 mg PO QWEEK 10/02/23 10/25/23 Unknown History diclofenac sodium 1 % topical gel topical 10/23/23 10/25/23 Unknown History loteprednol etabonate 0.5 % eye drp ophthalmic (eye) 10/23/23 10/25/23 Unknown History drops,suspension acetaminophen 650 mg 650 mg PO Q6H PRN mild pain 11/29/23 11/29/23 Unknown History tablet,extended release fluticasone furoate 200 1 ea inhalation DAILY 11/29/23 11/29/23 Unknown History mcg-vilanterol 25 mcg/dose inhalation powder (Breo Ellipta) hydrocortisone 2.5 % topical cream appl topical 11/29/23 11/29/23 Unknown History terbinafine HCl 250 mg tablet 250 mg PO DAILY 11/29/23 11/29/23 Unknown History Exam Height,Weight and Vital Signs: Height 5 ft 2 in Weight 101.378 kg Pertinent Lab Results Pertinent Lab Results: Laboratory Tests 11/06/23 11/21/23 10:05 08:42 WBC 4.4 L Hgb 11.7 L Hct 36.0 L Plt Count 230 Sodium 141 Potassium 3.9 Chloride 103 Carbon Dioxide 31 H BUN 8 L Creatinine 0.62 Narrative Narrative: EKG 10/2023 sinus tachycardia, rate 104, no acute ST or T-wave abnormalities, QTC 436 milliseconds ECHO 05/2023 Conclusions: - The left ventricular systolic function is normal. The visually estimated ejection fraction is between 65-70%. - No obvious valvular pathology seen on this study.(valves not well visualized). Assessment and Plan Assessment Anesthesia Assessment: Chart Reviewed Final Anesthetic Review Family History of Problems with Anesthesia: No History of Problems with Anesthesia: No Documented by User: Radha Yu MD 12/07/23 10:27 HPI - Anesthesia Eval Consult details Narrative: 48yo F for Left Breast Lumpectomy w/LOCalizer, [place] Node Biopsy s/p port insertion 06/2023 with GA-LMA 4 Pulmo optimized: At this time patient is at low risk for pulmonary preoperative complications for the proposed breast cancer removal under general anesthesia. Patient does have underlying significant obstructive sleep apnea with supplemental oxygen dependency, thus extubation to BiPAP may be required. Supplemental O2 prn Follows [facility] cardiology. Stable at 10/2023. Family notes increased exercise (walking) with intentional weight loss. Intellectual disability-12/07/23 -unable to obtain urine or blood sample for test. Patient uncooperative and combative [facility] Past Medical History Medical History Breast mass, left Right leg swelling Chest pain Cough Acute on chronic respiratory failure with hypoxia and hypercapnia Asthma with exacerbation Colon cancer screening Pneumonia Hospital discharge follow-up COVID Pulmonary hypertension Status post repair of fracture of orbit Sleep apnea Intellectual disability Morbid obesity Intellectual disability GEORGE (obstructive sleep apnea) Oxygen desaturation during sleep Asthma Family History Family History Mother Diabetes Hypertension Father Hypertension Maternal Uncle Throat cancer Family history of problems with anesthesia: No Surgical History Surgical History Encounter for insertion of tunneled central venous catheter (CVC) with port Cancer of left breast, stage 3 Status post spinal surgery History of open reduction and internal fixation (ORIF) procedure History of esophagogastroduodenoscopy (EGD) History of Problems with Anesthesia: No Social History Social History Household Members: Family Housing: Apartment Are you a primary care information associate to a significant other at home: No Do you presently have visiting nurse or other home services: Yes ([employer] 19 hours/week) Alcohol intake: never Comment: counts correct Patient Tobacco Use Status: Never used Tobacco Use of substances other than those prescribed or required for medical reasons: No Are you DNR?: No Advance Directives: Yes Advance Directives Information Provided: No Advance Directives on File: Yes Advance Directives Date on File: 08/14/18 Recently lost weight without trying: No service: No Current occupational status: disabled Meds Allergies Allergy/AdvReac Type Severity Reaction Status Date / Time No Known Allergies Allergy Unknown Verified 12/07/23 08:54 [No Known Allergies*] Home Medications ?Medication ?Instructions ?Recorded ?Confirmed ?Last Taken ?Type econazole 1 % topical cream 1 appl topical BID 10/27/21 10/25/23 04/05/22 History white petrolatum 42 % topical 1 ea topical BID PRN Dry Skin 10/27/21 10/25/23 Unknown History ointment cetirizine 10 mg tablet 10 mg PO DAILY 01/18/22 11/29/23 04/05/22 History fluoxetine 20 mg capsule 20 mg PO DAILY 01/18/22 11/29/23 04/05/22 History naproxen 500 mg tablet 500 mg PO BID PRN pain 01/18/22 10/25/23 Unknown History albuterol sulfate 2.5 mg/3 mL 1 amp inhalation Q4H PRN Shortness 04/05/22 11/29/23 Unknown History (0.083 %) solution for nebulization Of Breath albuterol sulfate 90 mcg/actuation 2 puff inhalation Q4H PRN 04/05/22 11/29/23 Unknown History aerosol inhaler (Ventolin HFA) shortness of breath or wheezing docusate sodium 100 mg capsule 1 cap PO BID PRN Constipation 04/05/22 11/29/23 Unknown History fluticasone propionate 50 2 spray intranasal DAILY 04/05/22 11/29/23 04/05/22 History mcg/actuation nasal spray,suspension lamotrigine 100 mg tablet 100 mg PO DAILY 04/05/22 11/29/23 04/05/22 History sennosides 8.6 mg tablet (senna) 2 tab PO BEDTIME PRN constipation 04/05/22 11/29/23 Unknown History arformoterol 15 mcg/2 mL solution 2 ml inhalation BID 07/03/22 10/25/23 Unknown History for nebulization (Brovana) aripiprazole 5 mg tablet 5 mg PO DAILY 07/03/22 11/29/23 Unknown History baclofen 10 mg tablet 10 mg PO DAILY 08/14/23 11/29/23 Unknown History calcium carbonate (Calcium Antacid) 400 mg PO QID PRN heartburn 08/14/23 11/29/23 Unknown History trazodone 50 mg tablet 100 mg PO BEDTIME PRN Insomnia 08/14/23 11/29/23 Unknown History triamcinolone acetonide 0.1 % 1 topical 08/14/23 10/25/23 Unknown History topical ointment fluconazole 150 mg tablet 150 mg PO QWEEK 10/02/23 10/25/23 Unknown History diclofenac sodium 1 % topical gel topical 10/23/23 10/25/23 Unknown History loteprednol etabonate 0.5 % eye drp ophthalmic (eye) 10/23/23 10/25/23 Unknown History drops,suspension acetaminophen 650 mg 650 mg PO Q6H PRN mild pain 11/29/23 11/29/23 Unknown History tablet,extended release fluticasone furoate 200 1 ea inhalation DAILY 11/29/23 11/29/23 Unknown History mcg-vilanterol 25 mcg/dose inhalation powder (Breo Ellipta) hydrocortisone 2.5 % topical cream appl topical 11/29/23 11/29/23 Unknown History terbinafine HCl 250 mg tablet 250 mg PO DAILY 11/29/23 11/29/23 Unknown History Exam Height,Weight and Vital Signs: Height 5 ft 2 in Weight 101.378 kg Vital Signs Temp Pulse Resp BP Pulse Ox O2 Del Method O2 Flow Rate 12/07/23 08:01 97.9 F 91 20 102/72 96 Nasal Cannula 2 Pertinent Lab Results Pertinent Lab Results: Laboratory Tests 11/06/23 11/21/23 10:05 08:42 WBC 4.4 L Hgb 11.7 L Hct 36.0 L Plt Count 230 Sodium 141 Potassium 3.9 Chloride 103 Carbon Dioxide 31 H BUN 8 L Creatinine 0.62 Lab Results 12/07/23 Range/Units 08:23 Beta HCG, Quant < 2 mIU/mL Airway Mallampati Class: IV TM Dist: >3cm Loose/Missing/Broken Teeth: Yes (Many missing teeth) Heart: RRR Lungs: CTAB Assessment and Plan Assessment Anesthesia Assessment: Anesthesia Plan Discussed and Chart Reviewed Final Anesthetic Review Family History of Problems with Anesthesia: No History of Problems with Anesthesia: No NPO: Yes ASA Class: III Final Preanesthetic Review: No Changes in Pt Med Stat, Meds/Allgs Chart Reviewed, Consent Obtained/Reviewed and Anes Risks/Benef Reviewed Patient Risk: Intermediate Procedure Risk: Low Assessment/Block/Sedation in SS: Assess/Block/Sedation-SS Anesthetic Plan Anesthetic Plan: GA Disposition: Standard PACU
--- NOTE | 2023-12-06 12:11 | MHC.SHP ---
Pre-Procedural Eval Section A - 24 Hr Update-Section A only Date of Service: 12/07/23 The patient is an INPATIENT: No Changes since office visit: No Cold of Flu in the past 2 weeks, No New Medical Problems, No Changes in Medication and No Patient answered all questions Section B - Complete if H&P > 30 days Chief Complaint: malignant neoplasm of lymph node of L breast Allergies: Allergies Allergy/AdvReac Type Severity Reaction Status Date / Time No Known Allergies Allergy Unknown Verified 11/14/23 08:54 [No Known Allergies*] Review of Systems Sugical H&P ROS: Negative: Constitution, Cardiovascular, Respiratory, Neurological, Psychiatric, Hem-Onc, Allergic/Immunologic, Gastrointestinal, Genitourinary, Musculoskeletal, Integumentary, Endocrine and Eyes/Ears/Nose/Throat Exam Surgical H&P Exam: Normal: HEENT, Normal: Heart, Normal: Lungs, Normal: Extremities, Normal: Abdomen, Normal: Skin and Normal: Neurological Plan I have reviewed the history and physical and performed a pertinent physical examination on my patient. No changes have occurred unless specified. Time Spent With Patient Time: Total time managing care of this patient today ____ minutes.
[2023-12-07] VITALS (7 sets, daily range): BP systolic 102–142; BP diastolic 69–88; PULSE 91–103; RESP 16–20; TEMP 36.1–36.6; O2SAT 89–100; BMI 40.8
--- NOTE | ~2023-12-07 | MM_ITS ---
EXAMINATION: MM SPECIMEN X-RAY BREAST, LEFT BREAST CLINICAL INDICATION: 48-year-old mentally challenged female, status post neoadjuvant chemotherapy for left breast retroareolar carcinoma with positive left axillary lymph node, status post RFID localization of retroareolar region. COMPARISON: -Mammo RF Localization left breast 11/26/2023. Plato node left breast 12/06/2023. -Prior ultrasound left breast 05/01/2023. -Left breast ultrasound-guided biopsy 2 sites 05/03/2023. -PET/CT 06/19/2023. -Left mammography 11/22/2023, 09/13/2023, 05/03/2023. TECHNIQUE: Single radiograph of the excised breast tissue is performed using digital mammography. FINDINGS/ MM/MM surgical specimen IMPRESSION: Single specimen radiograph demonstrates the presence of the butterfly shaped biopsy clip, RF ID tag, and residual mass within the center of the specimen. The entire nipple and areolar complex have been removed. Results were communicated to Dr. Van in the operating room at the time of imaging. Electronically signed by: Melquiades Francisco MD 12/07/2023 05:21 PM EDT
[2023-12-07] MEDS: Lactated Ringers 1,000 ML 100 ML IVCONT (08:09)
[2023-12-07] MEDS: Albuterol Sulfate (0.083%) 2.5 MG/3 ML VIAL.NEB INHALE (08:09)
--- NOTE | 2023-12-07 08:53 | PC.NURSE ---
brother is unsure when patient's port a cath was last accessed.
[2023-12-07 09:07] LABS: HCG Quantitative < 2 mIU/mL
--- NOTE | 2023-12-07 10:02 | PC.NURSE ---
Mom, HCP, present to sign paperwork along with brother who helps calm patient.
--- NOTE | 2023-12-07 12:29 | W.PM.OPN ---
Operative Note Operative Note Date of Service: 12/07/23 Narrative: Preoperative diagnosis: [] Retroareolar left metastatic breast cancer Postop diagnosis: [] The same Procedure [] left retro areolar lumpectomy with localizer, sentinel lymph node biopsy with isotope and blue dye Surgeon: [] Rehan Sanitation Worker Cleaning Machinery: [] Connie Type of Anesthesia: [] General Indication for surgery: [] Patient was status post neoadjuvant therapy for a large retroareolar areolar invasive breast cancer with also axillary adenopathy biopsy-proven. Patient had very good response both clinically and radiographically and now presents for the above-mentioned procedures. Intraoperative findings demonstrated confirmation of the localizer and a very generous specimen with all margins clear on frozen section and in vivo and ex vivo sentinel lymph nodes which were both blue and hot (4800 units) Findings: [] Patient brought to the operating room, placed on operative table in supine position, after an adequate level of general anesthesia was induce, d, and localizer demonstrated retro malleolar position blue was injected keanu areolar area and massaged for 5 minutes and the left breast and axilla were prepped and draped in usual sterile fashion. Very generous transverse by elliptical incision encompassing areola was carried down through skin, subcutaneous tissue, were superior and inferior skin flaps were developed with care to identify the localizer and a generous lumpectomy was uneventfully performed using Bovie. Specimen was tagged and initially confirmed mammographically and then sent to pathology for confirmation of clear margins which were accomplished. Wound was irrigated, secured hemostasis, and closed using interrupted inverted dermal 3-0 Vicryl sutures . ext the axilla was approached where using the [place] counter, the ?hot spot? was identified and infra-axillary curvilinear incision was made and carried down through skin, subcutaneous tissue, Mora's fascia . Further dissection demonstrated blue hot lymph nodes values as noted above. Uneventfully sentinel lymph node excision was performed using Bovie. This wound was also irrigated, secured hemostasis, and closed using interrupted 3-0 Vicryl sutures to reapproximate Mora's fascia and interrupted inverted dermal 3-0 Vicryl sutures to close the skin. Each wound it Steri-Strips and sterile dressings applied and were respectively infiltrated with 0.5% Marcaine at completion. Sponge, needle, and instrument counts reported correct. Patient tolerated the procedure well and emerged from anesthesia stable condition. EBL minimal Breast [place] Node Biopsy Substrate(s) used for sentinel node biopsy in the neoadjuvant setting: Dye and Radiotracer All colored nodes or non-colored nodes present at the end of a dye filled lymphatic channel were removed, if dye was used as the substrate for localization: Yes All significantly radioactive nodes were removed, if radionuclide was used as the substrate for localization: Yes All palpably suspicious nodes were removed, if present: Yes If clips were placed in pathology-involved nodes, those nodes were identified and removed: N/A General Surg. - Synoptic Notes Breast [place] Node Biopsy Substrate(s) used for sentinel node biopsy in the neoadjuvant setting: Dye and Radiotracer All colored nodes or non-colored nodes present at the end of a dye filled lymphatic channel were removed, if dye was used as the substrate for localization: Yes All significantly radioactive nodes were removed, if radionuclide was used as the substrate for localization: Yes All palpably suspicious nodes were removed, if present: Yes If clips were placed in pathology-involved nodes, those nodes were identified and removed: N/A
== END 2023-12-07 13:25 | disposition home or self-care (01) ==
PROVIDERS: Anesthesiology; PCP Family Medicine; Visit Provider Surgery
PROC: (CPT 19301; principal; 2023-12-07 09:50)
PROC: (CPT 19301; 2023-12-07 09:50)
DX: C50.012 Malignant neoplasm of nipple and areola, left female breast (principal); C77.9 Secondary and unspecified malignant neoplasm of lymph node, unspecified; Z17.0 Estrogen receptor positive status [ER+]; Z92.21 Personal history of antineoplastic chemotherapy; J96.22 Acute and chronic respiratory failure with hypercapnia; J96.21 Acute and chronic respiratory failure with hypoxia; Z99.81 Dependence on supplemental oxygen; J45.901 Unspecified asthma with (acute) exacerbation; J18.9 Pneumonia, unspecified organism; I27.20 Pulmonary hypertension, unspecified; R79.89 Other specified abnormal findings of blood chemistry; G47.33 Obstructive sleep apnea (adult) (pediatric); F79 Unspecified intellectual disabilities; Z79.899 Other long term (current) drug therapy; Z99.89 Dependence on other enabling machines and devices; Z98.890 Other specified postprocedural states; E66.01 Morbid (severe) obesity due to excess calories
CPT/HCPCS: 19301; 38525; 38900; 36415; 84702; 88307; 88329; 88342; C1889; J0690; J1100; J2250; J2405; J2704; J2795; J3010; Q9968

== ENCOUNTER → 2023-12-07 06:55 | Outpatient (BNV) | payer MEDICARE, MEDICAID, SELFPAY | PROVIDERS: PCP Family Medicine; Visit Provider Surgery | DX: C50.912 Malignant neoplasm of unspecified site of left female breast (principal) | CPT/HCPCS: 19301; 38525; 38900 ==

== ENCOUNTER 2023-12-19 07:57 | Outpatient (AMB) | payer MEDICARE, MEDICAID, SELFPAY ==
--- NOTE | 2023-12-19 07:59 | MHC.OFFVIS ---
Intake Visit Reasons: S/P Lt brst lumpectomy w,NL & SN Intake Note: Patient presents for post-op assessment status post Left breast lumpectomy w,NL & SN. Pt's son c/o; pain at surgical site. Roll Coating Machine Operator Required: No Roll Coating Machine Operator Services: Roll Coating Machine Operator Offered & Declined Accompanied by: Family/Other Allergies No Known Allergies [No Known Allergies*] Allergy (Unknown, Verified 12/19/23 08:04) HPI Comments Details: Patient presents with her family. No wound issues or complaints. Pathology results were reviewed [facility] Medical History Breast mass, left Right leg swelling Chest pain Cough Acute on chronic respiratory failure with hypoxia and hypercapnia Asthma with exacerbation Colon cancer screening Pneumonia Hospital discharge follow-up COVID Pulmonary hypertension Status post repair of fracture of orbit Sleep apnea Intellectual disability Morbid obesity Intellectual disability GEORGE (obstructive sleep apnea) Oxygen desaturation during sleep Asthma Surgical History History of lumpectomy of left breast (12/07/23) Encounter for insertion of tunneled central venous catheter (CVC) with port Cancer of left breast, stage 3 Status post spinal surgery History of open reduction and internal fixation (ORIF) procedure History of esophagogastroduodenoscopy (EGD) Family History Mother Diabetes Hypertension Father Hypertension Maternal Uncle Throat cancer Social History Household Members: Family Housing: Apartment Are you a primary neurocritical care physician to a significant other at home: No Do you presently have visiting nurse or other home services: Yes (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 19 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/week) Alcohol intake: never Comment: counts correct Patient Tobacco Use Status: Never used Tobacco Advance Directives Date on File: 08/14/18 service: No Current occupational status: disabled Physical Exam Chest Other: Lumpectomy and sentinel lymph node incisions clean dry and intact healing very well Assessment & Plan Assessment & Plan (1) Postop check: Code(s): Z09 - Encounter for follow-up examination after completed treatment for conditions other than malignant neoplasm Category: Surgical (2) Status post left breast lumpectomy: Code(s): Z98.890 - Other specified postprocedural states Category: Surgical Plan Patient's family have been instructed regarding local care. They will see me in a proximally 3 weeks' time for follow-up. Once she has fully healed/convalesced from her surgery, patient will need to see Oncology again and arrangements made for radiation therapy. All questions answered. Coding Level of Care Code Global (06637) Diagnoses Postop check Z09 Status post left breast lumpectomy Z98.890
== END 2023-12-19 08:21 | disposition home or self-care (01) ==
PROVIDERS: PCP Family Medicine; Visit Provider Surgery
DX: Z09 Encounter for follow-up examination after completed treatment for conditions other than malignant neoplasm (principal); Z98.890 Other specified postprocedural states
CPT/HCPCS: 99024

== ENCOUNTER → 2023-12-19 07:57 | Outpatient (BNVA) | payer MEDICARE, MEDICAID, SELFPAY | PROVIDERS: PCP Family Medicine; Visit Provider Surgery | DX: Z09 Encounter for follow-up examination after completed treatment for conditions other than malignant neoplasm (principal); Z98.890 Other specified postprocedural states | CPT/HCPCS: 99212 ==

== ENCOUNTER 2024-01-09 07:42 | Outpatient (AMB) | payer MEDICARE, MEDICAID, SELFPAY ==
--- NOTE | 2024-01-09 07:47 | A.OFFVIS_ITS ---
Intake Visit Reasons: 3 week follow-up Lt brst lumpectomy w,NL & SN Intake Note: Patient here for 1m follow up Lt br lumpectomy w/NL & SN on 12-07-2023. Reports incision healing well. Air Intercept Controller Required: No Accompanied by: Mother Allergies No Known Allergies [No Known Allergies*] Allergy (Unknown, Verified 01/09/24 07:48) HPI Comments Details: Patient presents with her mother and brother for follow-up. No wound issues or complaints. COUNT INCLUDES THE [facility] Medical History Breast mass, left Right leg swelling Chest pain Cough Acute on chronic respiratory failure with hypoxia and hypercapnia Asthma with exacerbation Colon cancer screening Pneumonia Hospital discharge follow-up COVID Pulmonary hypertension Status post repair of fracture of orbit Sleep apnea Intellectual disability Morbid obesity Intellectual disability GEORGE (obstructive sleep apnea) Oxygen desaturation during sleep Asthma Surgical History History of lumpectomy of left breast (12/07/23) Encounter for insertion of tunneled central venous catheter (CVC) with port Cancer of left breast, stage 3 Status post spinal surgery History of open reduction and internal fixation (ORIF) procedure History of esophagogastroduodenoscopy (EGD) Family History Mother Diabetes Hypertension Father Hypertension Maternal Uncle Throat cancer Social History Household Members: Family Housing: Apartment Are you a primary manager primary care to a significant other at home: No Do you presently have visiting nurse or other home services: Yes ([employer] 19 hours/week) Alcohol intake: never Comment: counts correct Patient Tobacco Use Status: Never used Tobacco Advance Directives Date on File: 08/14/18 service: No Current occupational status: disabled Physical Exam Chest Other: Breast and axillary incisions very well healed. Assessment & Plan Assessment & Plan (1) Status post left breast lumpectomy: Code(s): Z98.890 - Other specified postprocedural states Category: Medical (2) Postop check: Code(s): Z09 - Encounter for follow-up examination after completed treatment for conditions other than malignant neoplasm Category: Surgical Plan Current plan is to have the patient follow-up with her oncologist regarding adjuvant therapy and radiation therapy. Six-month postprocedure mammograms and follow-up with me vega be ordered as well. All questions answered. Patient will see me as noted above or p.r.n.. Coding Level of Care Code Global (92497) Diagnoses Status post left breast lumpectomy Z98.890 Postop check Z09
== END 2024-01-09 07:57 | disposition home or self-care (01) ==
PROVIDERS: PCP Family Medicine; Visit Provider Surgery
DX: Z98.890 Other specified postprocedural states (principal); Z09 Encounter for follow-up examination after completed treatment for conditions other than malignant neoplasm
CPT/HCPCS: 99024

== ENCOUNTER → 2024-01-09 07:42 | Outpatient (BNVA) | payer MEDICARE, MEDICAID, SELFPAY | PROVIDERS: PCP Family Medicine; Visit Provider Surgery | DX: Z09 Encounter for follow-up examination after completed treatment for conditions other than malignant neoplasm (principal); Z98.890 Other specified postprocedural states | CPT/HCPCS: 99212 ==

== ENCOUNTER 2024-01-11 13:57 | Outpatient (REF) | payer MEDICARE, MEDICAID, SELFPAY | END 2024-01-11 13:58 | disposition home or self-care (01) | LOC: HO.MRI 13:57 | PROVIDERS: PCP Family Medicine; Visit Provider Internal Medicine Medical Oncology | DX: Z13.89 Encounter for screening for other disorder (principal) ==

== ENCOUNTER 2024-01-22 | Outpatient (REF) | payer MEDICARE, MEDICAID, SELFPAY | END 2024-01-22 00:01 | disposition home or self-care (01) | LOC: CF | PROVIDERS: PCP Family Medicine; Visit Provider Internal Medicine Pulmonary Disease | DX: J45.909 Unspecified asthma, uncomplicated (principal); G47.33 Obstructive sleep apnea (adult) (pediatric); R06.00 Dyspnea, unspecified; Z99.81 Dependence on supplemental oxygen | CPT/HCPCS: 94618; 99212 ==

== ENCOUNTER 2024-01-22 12:47 | Outpatient (AMB) | payer MEDICARE, MEDICAID, SELFPAY ==
[2024-01-22 13:07] VITALS: BP 100/62; PULSE 90; O2SAT 96; BMI 39.7
--- NOTE | 2024-01-22 13:07 | MHC.OFFVIS ---
Vital Signs 01/22/24 13:07 Height 5 ft 2 in Weight 98.5 kg BMI 39.7 BP 100/62 Blood Pressure Location Lt brachial Position Sitting Pulse 90 Pulse Source Doppler Pulse Oximetry (%) 96 Oxygen Delivery Method Room Air Intake Visit Reasons: Asthma Allergies No Known Allergies [No Known Allergies*] Allergy (Unknown, Verified 01/09/24 07:48) HPI HPI Asthma: Details: 48-year-old lady with underlying intellectual disability, obesity, now followed for obstructive sleep apnea on CPAP, asthma, and chronic hypoxic respiratory failure on 2 L of supplemental oxygen. Unfortunately patient has recently been diagnosed with breast cancer and had excision and chemotherapy. She denies any recent exacerbations. Patient has been using Advair, DuoNebs, Brovana nebs, and albuterol MDI/nebs with good control of her underlying symptoms. Her lower extremity edema is controlled on torsemide. She has not received her replacement CPAP yet. [facility] Medical History Breast mass, left Right leg swelling Chest pain Cough Acute on chronic respiratory failure with hypoxia and hypercapnia Asthma with exacerbation Colon cancer screening Pneumonia Hospital discharge follow-up COVID Pulmonary hypertension Status post repair of fracture of orbit Sleep apnea Intellectual disability Morbid obesity Intellectual disability GEORGE (obstructive sleep apnea) Oxygen desaturation during sleep Asthma Surgical History History of lumpectomy of left breast (12/07/23) Encounter for insertion of tunneled central venous catheter (CVC) with port Cancer of left breast, stage 3 Status post spinal surgery History of open reduction and internal fixation (ORIF) procedure History of esophagogastroduodenoscopy (EGD) Family History Mother Diabetes Hypertension Father Hypertension Maternal Uncle Throat cancer Social History Household Members: Family Housing: Apartment Are you a primary child care development specialist to a significant other at home: No Do you presently have visiting nurse or other home services: Yes ([employer] 19 hours/week) Alcohol intake: never Comment: counts correct Patient Tobacco Use Status: Never used Tobacco Advance Directives Date on File: 08/14/18 service: No Current occupational status: disabled Review of Systems Const Denies daytime sleepiness, Denies excessive sweating, Denies fatigue, Denies fever(s), Denies lethargy, Denies malaise, Denies night sweats, Denies snoring and Denies weight loss Eyes Denies blurry vision and Denies itchy eyes ENT Denies nasal congestion, Denies post nasal drip, Denies sinus pain, Denies sinus pressure and Denies other ( Thrush) Card Denies chest pain, Denies pedal edema, Denies dyspnea, Denies orthopnea and Denies paroxysmal nocturnal dyspnea Resp Denies cough, Denies hemoptysis, Denies excessive phlegm production, Denies dyspnea, Denies snoring and Denies wheezing GI Denies abdominal pain and Denies heartburn Musc Denies myalgias, Denies arthralgias and Denies joint swelling Skin/Breast Denies rash Neuro Denies memory loss and Denies seizure-like activity Psych Denies abnormal sleep pattern, Denies anxiety and Denies memory loss Endo Denies excessive sweating, Denies fatigue and Denies heat intolerance Miller/Lymph Denies easy bruising Aller/Immun Denies itchy eyes, Denies seasonal rhinorrhea and Denies wheezing Physical Exam Vital Signs: Last Vital Signs Pulse 90 01/22/24 13:07 BP 100/62 01/22/24 13:07 Pulse Ox 96 01/22/24 13:07 Oxygen Delivery Method Room Air 01/22/24 13:07 BMI result Body Mass Index 39.7 Const General: no acute distress and alert Nutritional Appearance: obese Orientation/consciousness: Other orientation findings ( oriented) HEENT Head: Yes atraumatic Eyes General: appearance normal, both eyes and all related structures Sclerae: sclerae normal EOM: EOMs intact bilaterally Neck Neck: Yes supple Lymphatic: no lymphadenopathy noted Resp Effort & Inspection: normal respiratory effort and no use of accessory muscles Auscultation: clear to auscultation bilaterally Cardio Rate: regular rate Rhythm: regular rhythm Heart sounds: no gallops, no murmurs and no rubs Skin General skin exam: other ( warm) Extrem General: No clubbing, No cyanosis and No edema Office Procedures 6 Minute Walk Time:: 13:40 SPO2 % at rest: 94 Pulse at rest: 94 SPO2 % during excercise: 94 Pulse during excercise: 129 SPO2 % after excercise: 96 Pulse after excercise: 109 Distance in yards walked: 120 Comfort Score: 0 Performance Observations:: Brandon walked on level ground unassisted, she walked on room air for the entire walk. She did not c/o shortness of breath or difficulty breathing. HR at 3 minutes was 120 bpm, MD aware. No supplemental O2 required 28995 - 6 Minute Walk Assessment & Plan Assessment & Plan (1) Asthma: Code(s): J45.909 - Unspecified asthma, uncomplicated Category: Medical Plan: Well controlled on current regimen of Brovana, Breo, duo nebs, and albuterol MDI. Continue current regimen. (2) Supplemental oxygen dependent: Code(s): Z99.81 - Dependence on supplemental oxygen Category: Medical Plan: 6 minute walk test/supplemental oxygen evaluation performed. At this time patient does not require supplemental oxygen to maintain normal oximetry with exertion. (3) GEORGE (obstructive sleep apnea): Code(s): G47.33 - Obstructive sleep apnea (adult) (pediatric) Category: Medical Plan: Patient's CPAP machine got broken and she is awaiting receipt of a new machine. (4) Dyspnea on exertion: Code(s): R06.00 - Dyspnea, unspecified Category: Medical Plan: Orthopnea and lower extremity edema component well controlled on current regimen of torsemide 20 mg b.i.d. Continue current regimen. Orders: Orders AMB 6 minute walk Today G47.33 - Obstructive sleep apnea (adult) (pediatric) Coding Level of Care Code Est Pt Level 4 (54772) Complex EM visit Add On G2211 Diagnoses Asthma J45.909 Supplemental oxygen dependent Z99.81 GEORGE (obstructive sleep apnea) G47.33 Dyspnea on exertion R06.00 CPT Codes Coding ([id number])
[2024-01-22 13:49] VITALS: PULSE 94; O2SAT 94
== END 2024-01-22 13:42 | disposition home or self-care (01) ==
PROVIDERS: PCP Family Medicine; Visit Provider Internal Medicine Pulmonary Disease
DX: J45.909 Unspecified asthma, uncomplicated (principal); Z99.81 Dependence on supplemental oxygen; G47.33 Obstructive sleep apnea (adult) (pediatric); R06.00 Dyspnea, unspecified
CPT/HCPCS: 94618; 99214; G2211

== ENCOUNTER 2024-02-12 10:41 | Outpatient (REF) | payer MEDICARE, MEDICAID, SELFPAY ==
--- NOTE | ~2024-02-12 | PE_ITS ---
EXAMINATION: FLUORINE-18 FDG PET/CT SCAN CLINICAL INFORMATION: Subsequent treatment management. [Breast cancer with positive nodes. Status post neoadjuvant chemotherapy and surgery. For restaging. TECHNIQUE: 69 minutes following the intravenous administration of 13.9 mCi of fluorine 18 FDG, images from the base of skull to mid-thigh were obtained using a combined PET/CT scanner with CT scan based attenuation correction. No intravenous contrast was administered. Transverse, coronal, sagittal, and volume reconstruction projections were obtained. The patient's blood glucose as determined by a finger stick, was 84 mg/dL immediately prior to injection. The radiotracer was injected intravenously through a right antecubital superficial vein, without any complications. Total CT exam dose-length product 1219.31 mGy-cm. * These CT images were obtained using dose optimization techniques as appropriate, variously including the following: Automated exposure control * Adjustment of mA and/or kV according to patient size (this includes techniques or standardized protocols for targeted exams where dose is matched to indication/reason for exam; i.e. extremities or head) * Use of iterative reconstruction technique COMPARISON: Most recent prior PET CT scan done on 06/19/2023. FINDINGS: SUV MAX REFERENCE: Blood: 5.1 (2.8-prior). Liver: 5.5 (4.5-prior). HEAD AND NECK: No abnormal radiotracer uptake. No large intracranial hemorrhage, acute territorial infarct or significant shift of midline structures. CHEST: Ports and Devices: Right-sided Port-A-Cath is present with its tip seen at the cavoatrial junction. Lungs: No abnormal radiotracer uptake. Pleura: No significant pleural effusion. Lymph Nodes: Previously documented solitary intense hypermetabolic left axillary pathologically enlarged abnormal lymph node is no longer reproduced, presumably surgically absent. There are no new hypermetabolic axillary or internal mammary, mediastinal or hilar lymphadenopathy. Mediastinum: There is no significant pericardial effusion/thickening. Breasts/Chest Wall: Interval development of significant abnormal hypermetabolic skin thickening (SUV max of 4.7-154/267) and an ellipsoidal focal hypodense fluid collection is identified associated with few surgical abebe behind the central part of the left breast, likely represent interval postsurgical change. Alternatively, may also represent interval disease progression. Please correlate clinically. The right breast and the right axilla remain unremarkable. ABDOMEN/PELVIS: Liver/Biliary System: No focal tracer avid liver lesion. Large calcified gallstone is present. No evidence of biliary obstruction. Pancreas: Normal.No evidence of focal hypermetabolic pancreatic lesion or ductal dilatation. Spleen: No abnormal radiotracer uptake. No evidence of splenomegaly. Adrenal Glands: No abnormal radiotracer uptake. Kidneys: No hydronephrosis, hydroureter or renal calculi bilaterally. Bowel: There is no significant bowel dilatation to suggest obstruction. Moderate size hiatal hernia, similar to prior study. Lymph Nodes: No tracer avid retroperitoneal, mesenteric or pelvic and/or groin lymphadenopathy. Slight asymmetric increased tracer activity at the right groin is without any definite CT correlate, may represent nonspecific inflammatory changes with SUV max of 4.2 (65/267). Pelvic Organs: The urinary bladder is underdistended. MUSCULOSKELETAL: Postsurgical changes of protocol lumbar spine fusion and underlying stable extensive S-shaped scoliosis is seen. No evidence of any focal tracer avid hypermetabolism, unchanged. VASCULAR: No significant calcific atherosclerotic disease of the aorta and is branches. THE SITE(S) OF MOST INTENSE FDG AVIDITY AND SUV MAX: Nonspecific diffuse hypermetabolic skin thickening of the left breast with SUV max of 4.7. PET/PET CT fusion skull to thigh IMPRESSION: * Compared to most recent prior PET CT scan done on 06/19/2023: * Interval development of significant abnormal hypermetabolic skin thickening of the left breast (SUV max of 4.7) and an ellipsoidal focal hypodense fluid collection is identified associated with few surgical abebe behind the central part of the left breast, likely represent interval postsurgical change. Alternatively, may also represent interval disease progression. Please correlate clinically. * Previously documented solitary intense hypermetabolic left axillary pathologically enlarged abnormal lymph node is no longer reproduced, presumably surgically absent. * No evidence of any new hypermetabolic axillary or internal mammary, mediastinal or hilar lymphadenopathy or distant metastatic disease. * Slight asymmetric increased tracer activity at the right groin is without any definite CT correlate, may represent nonspecific inflammatory changes with SUV max of 4.2. * Stable moderate size hiatal hernia and cholelithiasis. Electronically signed by: Debbi Velasquez MD 02/20/2024 02:05 PM [facility] [place]
== END 2024-02-12 10:42 | disposition home or self-care (01) ==
LOC: HO.PET 10:41
PROVIDERS: PCP Family Medicine; Visit Provider Internal Medicine Medical Oncology
DX: Z13.89 Encounter for screening for other disorder (principal)

== ENCOUNTER 2024-03-03 10:49 | Outpatient (AMB) | payer MEDICARE, MEDICAID, SELFPAY ==
--- NOTE | 2024-03-03 10:49 | MHC.OFFVIS ---
Intake Visit Reasons: wound check ? seroma Intake Note: Patient scheduled this visit for seroma on lt br. Dx: Breast CA. Due to start Tamoxifen. F/u with Dr. Romero scheduled 04-22-2024. Patient c/o: denies oozing, pain. Armed Custom Protection Officer Required: No Accompanied by: mother and brother Allergies No Known Allergies [No Known Allergies*] Allergy (Unknown, Verified 03/03/24 10:55) HPI Comments Details: Patient presents with her mother and brother. She is here for wound evaluation because of question of the seroma picked up on a recent PET scan. Family states that patient has no breast issues.. She is currently completing her radiation therapy. [facility] Medical History Breast mass, left Right leg swelling Chest pain Cough Acute on chronic respiratory failure with hypoxia and hypercapnia Asthma with exacerbation Colon cancer screening Pneumonia Hospital discharge follow-up COVID Pulmonary hypertension Status post repair of fracture of orbit Sleep apnea Intellectual disability Morbid obesity Intellectual disability GEORGE (obstructive sleep apnea) Oxygen desaturation during sleep Asthma Surgical History History of lumpectomy of left breast (12/07/23) Encounter for insertion of tunneled central venous catheter (CVC) with port Cancer of left breast, stage 3 Status post spinal surgery History of open reduction and internal fixation (ORIF) procedure History of esophagogastroduodenoscopy (EGD) Family History Mother Diabetes Hypertension Father Hypertension Maternal Uncle Throat cancer Social History Household Members: Family Housing: Apartment Are you a primary urgent care physician assistant to a significant other at home: No Do you presently have visiting nurse or other home services: Yes ([employer] 19 hours/week) Alcohol intake: never Comment: counts correct Patient Tobacco Use Status: Never used Tobacco Advance Directives Date on File: 08/14/18 service: No Current occupational status: disabled Physical Exam Chest Other: Left Breast seminal well healed incision. Deep small palpable seroma palpated but nothing that requires drainage. Assessment & Plan Assessment & Plan (1) Postop check: Code(s): Z09 - Encounter for follow-up examination after completed treatment for conditions other than malignant neoplasm Category: Surgical Plan At present, no surgical intervention warranted. Once the patient has completed radiation therapy, the family will let us know and in 6 months time we will order a post surgery/radiation therapy mammogram surveillance. Coding Level of Care Code Global (73406) Diagnoses Postop check Z09
== END 2024-03-03 11:01 | disposition home or self-care (01) ==
PROVIDERS: PCP Family Medicine; Visit Provider Surgery
DX: Z09 Encounter for follow-up examination after completed treatment for conditions other than malignant neoplasm (principal)
CPT/HCPCS: 99024

== ENCOUNTER → 2024-03-03 10:49 | Outpatient (BNVA) | payer MEDICARE, MEDICAID, SELFPAY | PROVIDERS: PCP Family Medicine; Visit Provider Surgery | DX: Z09 Encounter for follow-up examination after completed treatment for conditions other than malignant neoplasm (principal); N64.89 Other specified disorders of breast; Z98.890 Other specified postprocedural states | CPT/HCPCS: 99212 ==

== ENCOUNTER 2024-04-14 12:34 | Outpatient (REF) | payer MEDICARE, MEDICAID, SELFPAY ==
[2024-04-14 13:46] LABS: MANUAL DIFF FLAG NO
[2024-04-14 13:54] LABS: Basophils Percent Auto 0.4 % (0-2); Eosinophils Absolute Auto 0.3 X10*3/uL (0.0-0.4); Eosinophils Percent Auto 5.6 % (0-4); Hematocrit 40.6 % (37.0-47.0); Hematocrit 40.7 % (37.0-47.0); Hemoglobin 12.5 g/dl (12.0-16.0); Hemoglobin 12.7 g/dl (12.0-16.0); Imm Gran Abs Auto 0.02 X10*3/uL (0.00-0.03); Imm Gran Pct Auto 0.4 % (0.0-0.4); Lymphocytes Absolute Auto 0.6 X10*3/uL (1.2-4.9); Lymphocytes Percent Auto 11.3 % (20-40); Mean Corpuscular HGB Conc 30.8 g/dl (31.0-35.0); Mean Corpuscular HGB Conc 31.2 g/dl (31.0-35.0); Mean Corpuscular Hemoglobin 26.7 pg (27.0-33.0); Mean Corpuscular Volume 86.6 fL (80.0-98.0); Mean Platelet Volume 11.1 fL (9.4-12.3); Mean Platelet Volume 11.3 fL (9.4-12.3); Monocytes Absolute Auto 0.4 X10*3/uL (0.1-1.2); Monocytes Percent Auto 8.7 % (2-11); Neutrophils Absolute Auto 3.7 x10*3/uL (2.0-8.3); Neutrophils Percent Auto 73.6 % (45-73); Platelet Count 155 X10*3/uL (160-400); Platelet Count 161 X10*3/uL (160-400); Red Blood Count 4.69 X10*6/uL (4.20-5.50); Red Cell Distribution Width 17.2 % (11.0-16.0); White Blood Count 4.9 X10*3/uL (4.8-10.8)
[2024-04-14 14:07] LABS: Estimated Average Glucose 105 mg/dL; Hemoglobin A1C 115.3537 umol/L; Hemoglobin A1c % 5.3 % (<6.0); Total Hemoglobin (HGBA1C) 3327.8515 umol/L
[2024-04-14 14:56] LABS: Alanine Aminotransferase 23 U/L (0-31); Albumin Level 3.8 g/dL (3.5-5.0); Anion Gap 10 (12-20); Aspartate Amino Transferase 23 U/L (5-31); Bilirubin Direct 0.1 mg/dL (0.0-0.5); Bilirubin Total 0.4 mg/dL (0.0-1.0); Blood Urea Nitrogen 11 mg/dL (9-16); Calcium 9.5 mg/dL (8.4-10.2); Carbon Dioxide 31 mmol/L (22-29); Chloride 105 mmol/L (96-108); Cholesterol 199 mg/dL (<200); Estimated Glomerular Filt Rate > 60; Glucose Random 119 mg/dL (60-115); HDL Cholesterol 79 mg/dL (>40); LDL Cholesterol Calculated 104 mg/dL (<100); Lipase 31 U/L (8-78); Sodium 142 mmol/L (135-145); Total Protein 7.2 g/dL (6.5-8.0); Triglycerides 82 mg/dL (<150)
[2024-04-14 15:20] LABS: Alkaline Phosphatase 85 U/L (39-117); Amylase 57 U/L (28-100)
[2024-04-14 15:23] LABS: Vitamin D 25-OH Total 42.5 ng/mL (>30)
[2024-04-15 08:48] LABS: CA 27.29 16 U/mL (<38)
[2024-04-15 12:20] LABS: Alpha Fetoprotein 3.1 ng/mL
== END 2024-04-14 12:35 | disposition home or self-care (01) ==
LOC: HO.HHCL 12:34
PROVIDERS: Internal Medicine Medical Oncology; Visit Provider Family Medicine
DX: R10.13 Epigastric pain (principal); Z68.41 Body mass index [BMI] 40.0-44.9, adult; K76.0 Fatty (change of) liver, not elsewhere classified; E78.2 Mixed hyperlipidemia; R79.9 Abnormal finding of blood chemistry, unspecified; C50.912 Malignant neoplasm of unspecified site of left female breast; C77.9 Secondary and unspecified malignant neoplasm of lymph node, unspecified
CPT/HCPCS: 36415; 80053; 80061; 80076; 82105; 82150; 82248; 82306; 83036; 83690; 85025; 85027; 86300

== ENCOUNTER 2024-04-29 | Outpatient (REF) | payer MEDICARE, MEDICAID, SELFPAY ==
--- OUTSIDE RECORDS SUMMARY | 2024-04-30 14:03 | XMS_ITS | Encounter Summary ---
Author Organization [employer] Address [address] [facility] [address] [place] [address] Care Team Providers Care Drafting Engineer Name Role Phone Miranda Maravilla DO Primary Care Provider + [phone] Encounter Details Date Type Department Care Team (Latest Contact Info) Description 04/18/2024 3:00 PM EST Office Visit [facility] [address] [place], [place] [phone] Eusebia Valdez MD [address] [place] [address] Onychodystrophy (Primary Dx) Social History Tobacco Use [...] documented as of this encounter Care Teams Drafting Engineer Relationship Specialty Start Date End Date Miranda Maravilla DO [address] [place] [id number] PCP - General Family Medicine 09/26/19 documented as of this encounter
--- OUTSIDE RECORDS SUMMARY | 2024-04-30 14:03 | XMS_ITS | Clinical Summary ---
Author Organization [employer] Address [address] [facility] [address] [place] [address] Care Team Providers [facility] Television Rental Clerk Name Role Phone Miranda Maravilla DO Primary Care Provider + [phone] Allergies No known active allergies Medications ARIPiprazole [...] Description 04/29/2024 6:20 PM EST Office Visit [facility] [address] [address] Oliver Bates MD Viral URI 04/25/2024 Orders Only [facility] [address] [place] [address] ProviderJo Ann MD 04/22/2024 11:00 AM EST Office Visit [facility] [place] [address] [place] [address] Madhu Anthony MD Moderate persistent asthma with acute exacerbation (Primary Dx); Viral URI 04/18/2024 3:00 PM EST Office Visit [facility] [address] [place] [address] Eusebia Valdez MD Onychodystrophy (Primary Dx) 04/18/2024 Travel 04/14/2024 12:00 PM EST Office Visit [facility] [place] [address] Miranda Maravilla DO Epigastric pain (Primary Dx); Fatty liver; Abnormal finding of blood chemistry, unspecified; Body mass index (BMI) 40.0-44.9, adult (CMS/[facility]); Mixed hyperlipidemia; Encounter for immunization 04/14/2024 Orders Only GENERIC EXTERNAL DATA DEPARTMENT Provider, Generic External Data 04/14/2024 Travel 04/11/2024 Refill [facility] [place] [address] Miranda Maravilla DO Pain 04/08/2024 Telephone [facility] [address] [place] [address] Miranda Maravilla DO Nurse Triage 04/04/2024 Refill [facility] [address] [place] [address] Miranda Maravilla, 03/14/2024 Telephone [facility] [address] Conchita Durham, RN Nebulizer physician order 03/12/2024 Refill [facility] [address] [place] [address] Miranda Maravilla, 03/04/2024 Refill [facility] [place] [address] Miranda Maravilla, 02/15/2024 Refill [facility] [place] [address] Miranda Maravilla DO Pain 02/12/2024 Orders Only [facility] External Provider, [facility] from Last 3 Months Immunizations Name [...] Procedure Name Priority Date/Time Associated Diagnosis Comments XR CHEST 2 VIEWS Routine 04/30/2024 11:2 1 AM EST Viral URI POCT INFLUENZA B (ID [...] Recently Relevant to Health Maintenance Results * XR Chest 2 Views (04/30/2024 11:21 AM EST) Anatomical Region Laterality Modality Chest Radiographic Maribel ging 04/30/2024 11:2 1 AM EST Narrative 04/30/2024 1:31 PM EST ?[facility] ?[address] ?[place] [address] ?XRay Report ? Signed ? Patient: Brandon Lang Y ?MR#: [id number] ? : 1975 ?Acct:[id number] ? Age/Sex: 49 / F ?ADM Date: 04/30/24 ? Loc: HO.HHCX ? Attending Dr: Oliver Bates MD ? Ordering Physician: Oliver Bates MD ?? Date of Service: 04/30/24 ?? Procedure(s): XR chest 2V ?? Accession Number(s): [id number] ? cc: Oliver Bates MD ? EXAMINATION: ?? XR CHEST ? CLINICAL INFORMATION: ?? 2-week duration of cough and congestion. ? COMPARISON: ?? Chest [id number] ? TECHNIQUE: ?? 2 views of the chest were obtained. ? FINDINGS: ?? The lungs are well-expanded and clear acute process. Heart size and ?? pulmonary vascularity is normal. There is moderate dextroscoliosis. 2 ?? Aguayo rods in the thoracic spine spine. Incidental finding of a ?? Silastic catheter in the right upper chest wall. ? XR/XR chest 2V ?? IMPRESSION: ?? No acute cardiopulmonary process seen. ? 2 Aguayo rods in thoracic spine for correction of dextroscoliosis. ? Stable Silastic catheter in the right upper anterior chest wall. ? Electronically signed by: ??Guero Cartwright MD ??04/30/2024 01:28 PM EST RP ? Dictated By: ?Guero Cartwright MD ? Signed By: ?<Electronically signed by Guero Cartwright MD in OV> ?04/30/24 1328 ? DD/ 1121 ? TD/TT: 04/30/24 1200 ? Identity Access Management Architect: MSM ? Procedure Note Donotlucieinterpreter, Image - 04/30/2024 [place] [address] XRay Report Signed Patient: Brandon Lang YMR#: [id number] : 1975Acct:[id number] Age/Sex: 49 / FADM Date: 04/30/24 Loc: HO.HHCX Attending Dr: Oliver Bates MD Ordering Physician: Oliver Bates MD Date of Service: 04/30/24 Procedure(s): XR chest 2V Accession Number(s): [id number] cc: Oliver Bates MD EXAMINATION: XR CHEST CLINICAL INFORMATION: 2-week duration of cough and congestion. COMPARISON: Chest 6237 24 TECHNIQUE: 2 views of the chest were obtained. FINDINGS: The lungs are well-expanded and clear acute process. Heart size and pulmonary vascularity is normal. There is moderate dextroscoliosis. 2 Aguayo rods in the thoracic spine spine. Incidental finding of a Silastic catheter in the right upper chest wall. XR/XR chest 2V IMPRESSION: No acute cardiopulmonary process seen. 2 Aguayo rods in thoracic spine for correction of dextroscoliosis. Stable Silastic catheter in the right upper anterior chest wall. Electronically signed by: Guero Cartwright MD 04/30/2024 01:[address] [facility] Dictated By: Guero Cartwright MD Signed By: <Electronically signed by Guero Cartwright MD in OV> 04/30/24 1328 DD/ 1121 TD/TT: 04/30/24 1200 Identity Access Management Architect: [email or web address] Oliver Bates MD IMG XR PROCEDURES Final Result * POCT Rapid Influenza B ONTIVEROS ID NOW (04/29/2024 7:14 PM EST) Only the most recent of2 resultswithin the time period is included. Influenza B Negative Negative, Indeterminate [facility] QC Media Lot # [id number] [facility] Lot# Expiration Date [facility] Swab 04/29/2024 7:14 PM EST Oliver Bates MD POINT OF CARE TEST ENTER/EDIT OR DERABLES Final Result Performing Organization Address [facility] Co de Phone Number [facility] [address] [place] [phone] * POCT Rapid Influenza A ONTIVEROS ID NOW (04/29/2024 7:14 PM EST) Only the most recent of2 resultswithin the time period is included. Influenza A Negative Negative, Indeterminate [facility] QC Media Lot # [id number] [facility] Lot# Expiration Date [facility] Swab 04/29/2024 7:14 PM EST Oliver Bates MD POINT OF CARE TEST ENTER/EDIT OR DERABLES Final Result Performing Organization Address [facility] Co de Phone Number [facility] [address] [place] [phone] * POCT Rapid Covid-19 BinaxNOW (04/29/2024 7:14 PM EST) Only the most recent of2 resultswithin the time period is included. Pathologist [facility] Rapid COVID Ag Negative QC Media Lot # [id number] Lot# Expiration Date [id number] Swab 04/29/2024 7:14 PM EST Oliver Bates MD POINT OF CARE TEST ENTER/EDIT OR DERABLES Final Result * Dermatopathology Report (04/18/2024 2:57 PM EST) Historical Provider LAB BLOOD ORDERABLES Barby l Result * Vitamin D, 25-Hydroxy, Total, Immunoassay (04/14/2024 12:38 PM EST) Pathologist [facility] Vitamin D 25-OH Total 42.5 >30 ng/mL [facility] Comment:Health Based Referen ce Values*< 20 ng/mL Xptvunkid91-57 ng/mL Insufficient> 30 ng/mL Sufficient*Sarah MENDEZ. N [...] DO LAB BLOOD ORDERABLES Final R esult [facility] [address] [place] [phone] * (ABNORMAL) CBC auto differential (04/14/2024 12:38 PM EST) White Blood Count 5.0 4.8 - 10.8 X10*3/uL [facility] Red Blood Count 4.70 4.20 - 5.50 X10*6/uL [facility] Hemoglobin 12.7 12.0 - 16.0 g/dl [facility] Hematocrit 40.7 37.0 - 47.0 % [facility] Mean Corpuscular Volume 86.6 80.0 - 98.0 fL [facility] Mean Corpuscular Hemoglobin 27.0 27.0 - 33.0 pg [facility] Mean Corpuscular HGB Conc 31.2 31.0 - 35.0 g/dl [facility] Red Cell Distribution Width 17.2(H) 11.0 - 16.0 % [facility] Platelet Count 155(L) 160 - 400 X10*3/uL [facility] Mean Platelet Volume 11.1 9.4 - 12.3 fL [facility] Neutrophils Percent Auto 73.6(H) 45 - 73 % [facility] Imm Gran Pct Auto 0.4 0.0 - 0.4 % [facility] Lymphocytes Percent Auto 11.3(L) 20 - 40 % [facility] Monocytes Percent Auto 8.7 2 - 11 % [facility] Eosinophils Percent Auto 5.6(H) 0 - 4 % [facility] Basophils Percent Auto 0.4 0 - 2 % [facility] NRBC Pct Auto 0.0 0.0 - 0.2 /100WBC [facility] Neutrophils Absolute Auto 3.7 2.0 - 8.3 x10*3/uL [facility] Imm Gran Abs Auto 0.02 0.00 - 0.03 X10*3/uL [facility] Lymphocytes Absolute Auto 0.6(L) 1.2 - 4.9 X10*3/uL [facility] Monocytes Absolute Auto 0.4 0.1 - 1.2 X10*3/uL [facility] Eosinophils Absolute Auto 0.3 0.0 - 0.4 X10*3/uL [facility] Basophils Absolute Auto 0.0 0.0 - 0.2 X10*3/uL [facility] NRBC Abs Auto 0.000 0.0 - 0.012 X10*3/uL [facility] 04/14/2024 12:3 8 PM EST 04/14/2024 1:44 PM EST Generic External Data Provider LAB BLOOD ORDERAB LES Final Result Performing Organization Address [facility] Co de Phone Number [facility] [address] [place] [phone] * Cancer antigen 27.29 (04/14/2024 12:38 PM EST) CA 27.29 16 <38 U/mL [facility] Comment:This test was perfor med using [...] adjustment made inOctober 2023 by the reagent milled rubber tender. In the lowrange for this assay (<38 U/mL), this increase may begreater than 20%. Serially monitored results shouldalways be used in conjunction with other diagnosticprocedures, including clinical evaluation.THIS TEST WAS PERFORMED AT:[employer])[address] [place] [phone] ROSE MD 04/14/2024 12:3 8 PM EST 04/14/2024 1:44 PM EST us Generic External Data Provider LAB BLOOD ORDERAB LES Final Result Performing Organization Address [facility]/ZIP Co de Phone Number [facility] [address] [place] [phone] * Alpha-Fetoprotein, Tumor Marker (04/14/2024 12:38 PM EST) Alpha Fetoprotein 3.1 ng/mL [facility] Comment:Reference Range: <6. 1The use of AFP as a tumor marker in females is not recommended.This test was performed using the Jessica Coulterchemiluminescent method. Values obtained fromdifferent assay methods cannot be usedinterchangeably. AFP levels, regardless ofvalue, should not be interpreted as absoluteevidence of the presence or absence of disease.THIS TEST WAS PERFORMED AT:[employer] ([employer])[address] [place] [phone] ROSE MD Blood Venous blood specimen / Unknown 04/14/2024 12:38 PM EST 04/14/2024 1:44 PM EST us Miranda Maravilla DO LAB BLOOD ORDERABLES Final R esult [facility] [address] [place] [phone] * (ABNORMAL) CBC (04/14/2024 12:38 PM EST) White Blood Count 4.9 4.8 - 10.8 X10*3/uL [facility] Red Blood Count 4.69 4.20 - 5.50 X10*6/uL [facility] Hemoglobin 12.5 12.0 - 16.0 g/dl [facility] Hematocrit 40.6 37.0 - 47.0 % [facility] Mean Corpuscular Volume 86.6 80.0 - 98.0 fL [facility] Mean Corpuscular Hemoglobin 26.7(L) 27.0 - 33.0 pg [facility] Mean Corpuscular HGB Conc 30.8(L) 31.0 - 35.0 g/dl [facility] Red Cell Distribution Width 17.2(H) 11.0 - 16.0 % [facility] Platelet Count 161 160 - 400 X10*3/uL [facility] Mean Platelet Volume 11.3 9.4 - 12.3 fL [facility] NRBC Pct Auto 0.0 0.0 - 0.2 /100WBC [facility] NRBC Abs Auto 0.000 0.0 - 0.012 X10*3/uL [facility] Blood Venous blood specimen / Unknown 04/14/2024 12:38 PM EST 04/14/2024 1:44 PM EST Miranda Renita Babelway LAB BLOOD ORDERABLES Final R esult Performing Organization Address City/[facility]/ZIP Co de Phone Number [facility] [address] [place] [phone] * Lipase (04/14/2024 12:38 PM EST) Lipase 31 8 - 78 U/L [facility] Blood Venous blood specimen / Unknown 04/14/2024 12:38 PM EST 04/14/2024 1:44 PM EST Miranda Deleonjackrena LAB BLOOD ORDERABLES Final R esult Performing Organization Address City/[facility]/ZIP Co de Phone Number [facility] [address] [place] [phone] * Hemoglobin A1c (04/14/2024 12:38 PM EST) Hemoglobin A1c 5.3 <6.0 % [facility] Comment:Hemoglobin A1C Refer ence Range Adults: 4.8 - 6.0 % Non diabetic: < 6.0 % Goal: < 7.0 %Additional Action Suggested: > 8.0 %Note: Hemoglobin A1c results are invalid for patients with abnormal amounts of HbF. Blood transfusions may impact the HbA1c concentration in the patient sample. Estimated Average Glucose 105 mg/dL [facility] Comment:eAG = Estimated ave rage glucose which is %A1C expressed asaverage glucose, using the formula of the T2E-FqivzdaRxrggug Glucose study (ADAG), Diabetes Care, Vol.31,#8,Nov. 2007 Blood Venous blood specimen / Unknown 04/14/2024 12:38 PM EST 04/14/2024 1:44 PM EST Miranda Deleonjackrena DO LAB BLOOD ORDERABLES Final R esult [facility] [address] [place] [phone] * Amylase (04/14/2024 12:38 PM EST) Amylase 57 28 - 100 U/L [facility] Blood Venous blood specimen / Unknown 04/14/2024 12:38 PM EST 04/14/2024 1:44 PM EST Miranda Maravilla LAB BLOOD ORDERABLES Final R esult Performing Organization Address [facility]/ZIP Co de Phone Number [facility] [address] [place] [phone] * Hepatic Function Panel (04/14/2024 12:38 PM EST) Pathologist [facility] Bilirubin, Direct 0.1 0.0 - 0.5 mg/dL [facility] Blood Venous blood specimen / Unknown 04/14/2024 12:38 PM EST 04/14/2024 1:44 PM EST Miranda Maravilla LAB BLOOD ORDERABLES Final R esult Performing Organization Address City/[facility] Co de Phone Number [facility] [address] [place] [phone] * (ABNORMAL) Lipid Panel, Standard (04/14/2024 12:38 PM EST) Triglycerides 82 <150 mg/dL [facility] Comment:Desirable Triglyceri de: less than 150 mg/dLBorderline High Triglyceride 150-199 mg/dLHigh Triglyceride: 200-499 mg/dLVery High Triglyceride: greater than or equal to 5OO mg/dL Cholesterol 199 <200 mg/dL [facility] Comment:Desirable Cholestero l: less than 200 mg/dLBorderline High Cholesterol: 200-239 mg/dLHigh Cholesterol: greater than 239 mg/dL LDL Cholesterol Calculated 104(H) <100 mg/dL [facility] Comment:Desirable LDL: less than 100 mg/dLNear Optimal/Above Optimal LDL: 110- 129 mg/dLBorderline High LDL: 130-159 mg/dLHigh LDL: 160-189 mg/dLVery High LDL: greater than or equal to 190 mg/dL HDL Cholesterol 79 >40 mg/dL [facility] Comment:Desirable HDL: great er than 40 mg/dL Note: This HDL assay may give artificially low results in patients with liver disease. Blood Venous blood specimen / Unknown 04/14/2024 12:38 PM EST 04/14/2024 1:44 PM EST us Miranda Maravilla DO LAB BLOOD ORDERABLES Final R esult [facility] [address] [place] [phone] * (ABNORMAL) Comprehensive Metabolic Panel (04/14/2024 12:38 PM EST) Sodium 142 135 - 145 mmol/L [facility] Potassium 4.0 3.3 - 5.1 mmol/L [facility] Chloride 105 96 - 108 mmol/L [facility] Carbon Dioxide 31(H) 22 - 29 mmol/L [facility] Anion Gap 10(L) 12 - 20 [facility] Urea Nitrogen (BUN) 11 9 - 16 mg/dL [facility] Creatinine, Serum 0.63 0.5 - 1.4 mg/dL [facility] Estimated Glomerular Filt Rate >60 [facility] Comment:Chronic Kidney Disea se: Estimated GFR < 60 mL/min/1.69d5Epjhye Kidney Disease: Estimated GFR < 15 mL/min/1.73m2 Glucose 119(H) 60 - 115 mg/dL [facility] Calcium 9.5 8.4 - 10.2 mg/dL [facility] Bilirubin, Total 0.4 0.0 - 1.0 mg/dL [facility] Aspartate Amino Transferase 23 5 - 31 U/L [facility] Alanine Aminotransferase 23 0 - 31 U/L [facility] Total Protein 7.2 6.5 - 8.0 g/dL [facility] Albumin Level 3.8 3.5 - 5.0 g/dL [facility] Alkaline Phosphatase 85 39 - 117 U/L [facility] 04/14/2024 12:3 8 PM EST 04/14/2024 1:44 PM EST us Generic External Data Provider LAB BLOOD ORDERAB LES Final Result [facility] [address] [place] [phone] * PET/CT Bone Skull Base to Mid Thigh (02/12/2024 11:30 AM EST) Anatomical Region Laterality Modality Body Computed Tomogra phy 02/12/2024 11:3 0 AM EST Narrative 02/20/2024 2:08 PM EST ? [facility] ?[address] ?[place] [address] ? PET Report ? Signed ? Patient: Brandon Lang ?MR#: [id number] ? : 1975 ?Acct:[id number] ? Age/Sex: 49 / F ?ADM Date: 02/12/24 ? Loc: HO.PET ? Attending Dr: Christiana Romero MD ? Ordering Physician: Christiana Romero MD ?? Date of Service: 02/12/24 ?? Procedure(s): PET CT fusion skull to thigh ?? Accession Number(s): [id number] ? cc: Miranda Maravilla DO; Christiana Romero [...] DD/ 1130 ? TD/TT: 02/12/24 1315 ? Identity Access Management Architect: PK ? Procedure Note Blair, Image - 02/20/2024 [place] [address] PET Report Signed Patient: Brandon Lang YMR#: [id number] : 1975Acct:[id number] Age/Sex: 49 / FADM Date: 02/12/24 Loc: HO.PET Attending Dr: Christiana Romero MD Ordering Physician: Christiana Romero MD Date of Service: 02/12/24 Procedure(s): PET CT fusion skull to thigh Accession Number(s): [id number] cc: Miranda Maravilla DO; Christiana Romero MD [...] by: Debbi Velasquez MD 02/20/2024 02:05 PM EST Dictated By: Debbi Velasquez MD Signed By: <Electronically signed by Debbi Velasquez MD in OV> 02/20/24 1405 DD/ 1130 TD/TT: 02/12/24 1315 Identity Access Management Architect: CLAUDE [facility] External Provider IMG CT PROCEDURES Final Result * (ABNORMAL) Cologuard?? colon cancer screening (03/04/2023 11:20 PM EST) Cologuard Result Positive( A) Negative 03/12/2023 10:35 AM EST [facility] (CLIA #:[id number]) Comment: POSITIVE TEST RESULT. A positive Cologuard [...] screened with both Cologuard and colonoscopy. (Elliot Kimball et al, N Engl J Med 2014;370(14):9779-2826.) Cologuard may produce a false negative or false positive result (no colorectal cancer or precancerous polyp present at colonoscopy follow up). A negative Cologuard test result does not guarantee the absence of CRC or advanced adenoma (pre-cancer). The current Cologuard screening interval is every 3 years. ([place] [employer] and U.S. Multi-Society Task Force). Cologuard performance data in a 10,000 patient pivotal study using colonoscopy as the reference method can be accessed at the following location: www.[employer]com/results. Additional description of the Cologuard test process, warnings and precautions can be found at www.MOV[employer]rd.com. Stool specimen (specimen) 03/04/2023 11:20 PM EST 03/06/2023 5:06 PM EST Miranda Maravilla DO LAB MOLECULAR DIAGNOSTICS OR DERABLES Final Result [facility] (CLIA #:[id number]) [address] [place] [address], * HEPATITIS C AB W/REFL TO HCV RNA, QN, PCR (10/24/2019 9:16 AM EDT) HEPATITIS C ANTIBODY NON-REACT QUIANA NON-REACT QUIANA [facility] INDEX 0.02 <1.00 [facility] Comment: ?? HCV antibody was non-reactive. There is no laboratory ?? evidence of HCV infection. ?? In most cases, no further action is required. However, if recent HCV exposure is suspected, a test for HCV RNA (test code 07172) is suggested. ?? For additional information please refer to http://Giggle/faq/CFG97o5 (This link is being provided for informational/ educational purposes only.) ?? HEPATITIS C ANTIBODY NON-REACT QUIANA NON-REACT QUIANA [facility] INDEX 0.02 <1.00 [facility] Comment: ?? HCV antibody was non-reactive. There is no laboratory ?? evidence of HCV infection. ?? In most cases, no further action is required. However, if recent HCV exposure is suspected, a test for HCV RNA (test code 10161) is suggested. ?? For additional information please refer to http://Giggle/faq/KKZ89x0 (This link is being provided for informational/ educational purposes only.) ?? HEPATITIS C ANTIBODY NON-REACT QUIANA NON-REACT QUIANA [facility] INDEX 0.02 <1.00 [facility] Comment: ?? HCV antibody was non-reactive. There is no laboratory ?? evidence of HCV infection. ?? In most cases, no further action is required. However, if recent HCV exposure is suspected, a test for HCV RNA (test code 13802) is suggested. ?? For additional information please refer to http://Giggle/faq/VJY66r5 (This link is being provided for informational/ educational purposes only.) ?? 10/24/2019 9:16 AM EDT Miranda Maravilla DO HISTORICAL/NON ORDERABLE LAB S Final Result [facility] [address] [place] [address], * HIV 1/2 ANTIGEN/ANTIBODY,FOURTH GENERATION W/RFL (10/24/2019 [...] ? For additional information please refer to http://[employer].PublicVine/faq/PMT206 (This link is being provided for informational/ educational purposes only.) ? The performance of this assay has not been clinically validated in patients less than 2 years old. ?? HIV-1/2 ANTIGEN AND ANTIBODIES, 4TH GENERATION W/ REFLEX NON-REACT QUIANA NON-REACT QUIANA [facility] Comment: HIV-1 antigen and HIV-1/HIV-2 [...] ? For additional information please refer to http://[employer].PublicVine/faq/DER749 (This link is being provided for informational/ educational purposes only.) ? The performance of this assay has not been clinically validated in patients less than 2 years old. ?? HIV-1/2 ANTIGEN AND ANTIBODIES, 4TH GENERATION W/ REFLEX NON-REACT QUIANA NON-REACT QUIANA [facility] Comment: HIV-1 antigen and HIV-1/HIV-2 [...] ? For additional information please refer to http://education.PublicVine/faq/UZS741 (This link is being provided for informational/ educational purposes only.) ? The performance of this assay has not been clinically validated in patients less than 2 years old. ?? 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
--- OUTSIDE RECORDS SUMMARY | 2024-04-30 14:03 | XMS_ITS | Encounter Summary ---
Author Organization [employer] Address [address] [facility] 7t [place] [address] Care Team Providers Care Surgical Forceps Fabricator Name Role Phone Miranda Maravilla DO Primary Care Provider + [phone] Reason for Visit * Reason Comments Cough Nasal Congestion Encounter Details Date Type Department Care Team ([facility] st Contact Info) Description 04/22/2024 11:00 AM EST Office Visit [facility] [address] [place] [address] Madhu Anthony MD [address] [place] [address] Moderate persistent asthma with acute exacerbation (Primary [...] Brandon Lang is a 49 y.o. female. 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 HPI Yesterday Brandon had onset of productive cough, wheezing, SOB, tactile fever. No n/v/d. Taking p.o. well. Taking Tylenol, albuterol via neb q4h, Breo Ellipta. Lives with parents. Mother has similar. LMP=1 year ago. Mother states missed menses due to chemotherapy for breast cancer. She is not sexually active. Never smoked. Stopped going to [employer] when she started chemotherapy; finished chemo and radiation last week. Patient Active Problem List Diagnosis Allergic rhinitis Cholelithiasis Chronic gastroesophageal reflux disease Intermittent explosive disorder Moderate intellectual disability Moderate persistent asthma BMI 40.0-44.9, adult ([facility]) GEORGE (obstructive sleep apnea) Oropharyngeal dysphagia Scoliosis Obesity hypoventilation syndrome ([facility]) Depressive disorder Chronic constipation History of COVID-19 Pulmonary hypertension ([facility]) Supplemental oxygen dependent Fatty liver Swelling of both lower extremities Healthcare maintenance Cancer of left breast, stage 3 ([facility]) Tinea pedis of both feet The following [...] NOW Rapid Molecular) (04/22/2024 12:00 PM EST) [facility] Influenza B Negative Negative, Indeterminate [facility] Swab 04/22/2024 12:0 0 PM EST Madhu Anthony MD POINT OF CARE TEST ENTER/EDIT OR DERABLES Final Result Performing Organization Address [facility] Co de Phone Number [facility] [address] [place] [phone] * Influenza A (ID NOW Rapid Molecular) (04/22/2024 12:00 PM EST) [facility] Influenza A Negative Negative, Indeterminate [facility] Swab 04/22/2024 12:0 0 PM EST Madhu Anthony MD POINT OF CARE TEST ENTER/EDIT OR DERABLES Final Result Performing Organization Address [facility] Co de Phone Number [facility] [address] [place] [phone] * POCT Rapid COVID Ag (04/22/2024 12:00 PM EST) Pathologist [facility] Rapid COVID Ag Negative [facility] Swab 04/22/2024 12:0 0 PM EST us Madhu Anthony MD POINT OF CARE TEST ENTER/EDIT OR DERABLES Final Result [facility] [address] [place] [phone] documented in this encounter Visit Diagnoses Diagnosis Moderate persistent asthma with acute exacerbation- Primary Viral URI Acute upper respiratory infections of unspecified site documented in this encounter Additional Health Concerns Assessment Noted Time PHQ-9 Depression Total Score: 7 08/20/19 24 10:35 AM EDT documented as of this encounter Care Teams Surgical Forceps Fabricator Relationship Specialty Start Date End Date Miranda Maravilla DO [address] [place] [address] PCP - General Family Medicine 09/26/19 documented as of this encounter
--- OUTSIDE RECORDS SUMMARY | 2024-04-30 14:03 | XMS_ITS | Encounter Summary ---
Author Organization [employer] Address [address] [facility] 7t [place] [address] Care Team Providers Care Transfer And Line Up Worker Name Role Phone Miranda Maravilla DO Primary Care Provider + [phone] Encounter Details Date Type Department Care Team [...] documented as of this encounter Care Teams Transfer And Line Up Worker Relationship Specialty Start Date End Date Miranda Maravilla DO [address] [place] [phone] PCP - General Family Medicine 09/26/19 documented as of this encounter
--- OUTSIDE RECORDS SUMMARY | 2024-04-30 14:03 | XMS_ITS | Encounter Summary ---
Author Organization [employer] Address 75 [facility] 7t [place] [address] Care Team Providers Care Police Shift Commander Name Role Phone Miranda Maravilla Primary Care Provider + [phone] Encounter Details Date Type Department Care Team (Late st Contact Info) Description 04/25/2024 Orders Only [facility] [address] [place], [place] [phone] Provider, MD Jo Ann Social History Tobacco [...] documented as of this encounter Care Teams Police Shift Commander Relationship Specialty Start Date End Date Miranda Maravilla DO [address] [place] [address] PCP - General Family Medicine 09/26/19 documented as of this encounter
--- OUTSIDE RECORDS SUMMARY | 2024-04-30 14:03 | XMS_ITS | Encounter Summary ---
Author Organization [employer] Address [address] [facility] 7[address] [place] [address] Care Team Providers Care Refrigeration Systems Installer Name Role Phone Miranda Maravilla DO Primary Care Provider + [phone] Reason for Visit * Reason Comments Cough Encounter Details Date Type Department Care Team ([facility] st Contact Info) Description 04/29/2024 6:20 PM EST Office Visit [facility] 230 [place], [place] [phone] Oliver Bates MD [address] [place], [place] [phone] Viral URI Social History Tobacco Use Types [...] in this encounter Progress Notes * Oliver Bates MD - 04/29/2024 6:20 PM EST Subjective [...] Viral URI Expected: 04/29/2024 (Approximate), Expires: 04/29/2025 documented as of this encounter [...] URI documented in this encounter Results * XR Chest 2 Views (04/30/2024 11:21 AM EST) Anatomical Region Laterality Modality Chest Radiographic Maribel ging 04/30/2024 11:2 1 AM EST Narrative 04/30/2024 1:31 PM EST ?[facility] ?[address] ?[place] [address] ?XRay Report ? Signed ? Patient: Rickey,Brandon Y ?MR#: [id number] ? : 1975 ?Acct:[id number] ? Age/Sex: 49 / F ?ADM Date: 01/22/25 ? Loc: HO.HHCX ? Attending Dr: Oliver Bates MD ? Ordering Physician: Oliver Bates MD ?? Date of Service: 04/30/24 ?? Procedure(s): XR chest 2V ?? Accession Number(s): [id number] ? cc: Oliver Bates MD ? EXAMINATION: [...] DD/ 1121 ? TD/TT: 04/30/24 1200 ? Field Laboratory Operator: MSM ? Procedure Note Mini Pinto - 04/30/2024 [place] [address] XRay Report Signed Patient: Brandon Lang YMR#: [id number] : 1975Acct:[id number] Age/Sex: 49 / FADM Date: 04/30/24 Loc: HO.HHCX Attending Dr: Oliver Bates MD Ordering Physician: Oliver Bates MD Date of Service: 04/30/24 Procedure(s): XR chest 2V Accession Number(s): [id number] cc: Oliver Bates MD EXAMINATION: XR CHEST [...] by: Guero Cartwright MD 04/30/2024 01:28 PM EST RP Dictated By: Guero Cartwright MD Signed By: <Electronically signed by Guero Cartwright MD in OV> 04/30/24 1328 DD/ 1121 TD/TT: 04/30/24 1200 Field Laboratory Operator: VIOLETTE Oliver Bates MD IMG XR PROCEDURES Final Result * POCT Rapid Influenza B ONTIVEROS ID NOW (04/29/2024 7:14 PM EST) Influenza B Negative Negative, Indeterminate [facility] QC Media Lot # [id number] [facility] Lot# Expiration Date [facility] Swab 04/29/2024 7:14 PM EST Oliver Bates MD POINT OF CARE TEST ENTER/EDIT OR DERABLES Final Result Performing Organization Address [facility] de Phone Number [facility] [address] [place] [address] [phone] * POCT Rapid Influenza A ONTIVEROS ID NOW (04/29/2024 7:14 PM EST) Influenza A Negative Negative, Indeterminate [facility] QC Media Lot # [id number] [facility] Lot# Expiration Date [facility] Swab 04/29/2024 7:14 PM EST Oliver Bates MD POINT OF CARE TEST ENTER/EDIT OR DERABLES Final Result Performing Organization Address [facility] Co de Phone Number [facility] [address] [place] [phone] * POCT Rapid Covid-19 BinaxNOW (04/29/2024 7:14 PM EST) Rapid COVID Ag Negative QC Media Lot # [id number] Lot# Expiration Date ,026 Swab 04/29/2024 7:14 PM EST Oliver Bates MD POINT OF CARE TEST ENTER/EDIT OR DERABLES Final Result documented in this encounter Visit Diagnoses Diagnosis Viral URI Acute upper respiratory infections of unspecified site documented in this encounter Additional Health Concerns Assessment Noted Time PHQ-9 Depression Total Score: 7 08/20/19 24 10:35 AM EDT documented as of this encounter Care Teams Refrigeration Systems Installer Relationship Specialty Start Date End Date Miranda Maravilla DO [address] [place] [address] PCP - General Family Medicine 09/26/19 documented as of this encounter
--- OUTSIDE RECORDS SUMMARY | 2024-04-30 14:03 | XMS_ITS | Encounter Summary ---
Author Organization [employer] Address 75 [facility] 7t [place] [address] Care [address] Project Manager Name Role Phone Miranda Maravilla DO Primary Care Provider + [phone] Encounter Details Date Type Department Care Team [...] PM EST) CA 27.29 16 <38 U/mL [facility] Comment:This test was perfor med [...] adjustment made inOctober 2023 by the reagent account receivable associate. In the lowrange for this assay (<38 U/mL), this increase may begreater than 20%. Serially monitored results shouldalways be used in conjunction with other diagnosticprocedures, including clinical evaluation.THIS TEST WAS PERFORMED AT:[employer] [place] [id number] ROSE MD 04/14/2024 12:3 8 PM EST 04/14/2024 1:44 PM EST us Generic External Data Provider LAB BLOOD ORDERAB LES Final Result [facility] [address] [place] [phone] * (ABNORMAL) Comprehensive Metabolic Panel (04/14/2024 12:38 PM EST) Pathologist [facility] Sodium 142 135 - 145 mmol/L [facility] Potassium 4.0 3.3 - 5.1 mmol/L [facility] Chloride 105 96 - 108 mmol/L [facility] Carbon Dioxide 31(H) 22 - 29 mmol/L [facility] Anion Gap 10(L) 12 - 20 [facility] Urea Nitrogen (BUN) 11 9 - 16 mg/dL [facility] Creatinine, Serum 0.63 0.5 - 1.4 mg/dL [facility] Estimated Glomerular Filt Rate >60 [facility] Comment:Chronic Kidney Disea se: Estimated GFR < 60 mL/min/1.65v2Cmzjrt Kidney Disease: Estimated GFR < 15 mL/min/1.73m2 Glucose 119(H) 60 - 115 mg/dL [facility] Calcium 9.5 8.4 - 10.2 mg/dL [facility] Bilirubin, Total 0.4 0.0 - 1.0 mg/dL [facility] Aspartate Amino Transferase 23 5 - 31 U/L [facility] Alanine Aminotransferase 23 0 - 31 U/L [facility] Total Protein 7.2 6.5 - 8.0 g/dL [facility] Albumin Level 3.8 3.5 - 5.0 g/dL [facility] Alkaline Phosphatase 85 39 - 117 U/L [facility] 04/14/2024 12:3 8 PM EST 04/14/2024 1:44 PM EST us Generic External Data Provider LAB BLOOD ORDERAB LES Final Result [facility] [address] [place] [phone] [phone] * (ABNORMAL) CBC auto differential (04/14/2024 12:38 PM EST) Pathologist [facility] White Blood Count 5.0 4.8 - 10.8 X10*3/uL [facility] Red Blood Count 4.70 4.20 - 5.50 X10*6/uL [facility] Hemoglobin 12.7 12.0 - 16.0 g/dl [facility] Hematocrit 40.7 37.0 - 47.0 % [facility] Mean Corpuscular Volume 86.6 80.0 - 98.0 fL [facility] Mean Corpuscular Hemoglobin 27.0 27.0 - 33.0 pg [facility] Mean Corpuscular HGB Conc 31.2 31.0 - 35.0 g/dl [facility] Red Cell Distribution Width 17.2(H) 11.0 - 16.0 % [facility] Platelet Count 155(L) 160 - 400 X10*3/uL [facility] Mean Platelet Volume 11.1 9.4 - 12.3 fL [facility] Neutrophils Percent Auto 73.6(H) 45 - 73 % [facility] Imm Gran Pct Auto 0.4 0.0 - 0.4 % [facility] Lymphocytes Percent Auto 11.3(L) 20 - 40 % [facility] Monocytes Percent Auto 8.7 2 - 11 % [facility] Eosinophils Percent Auto 5.6(H) 0 - 4 % [facility] Basophils Percent Auto 0.4 0 - 2 % [facility] NRBC Pct Auto 0.0 0.0 - 0.2 /100WBC [facility] Neutrophils Absolute Auto 3.7 2.0 - 8.3 x10*3/uL [facility] Imm Gran Abs Auto 0.02 0.00 - 0.03 X10*3/uL [facility] Lymphocytes Absolute Auto 0.6(L) 1.2 - 4.9 X10*3/uL [facility] Monocytes Absolute Auto 0.4 0.1 - 1.2 X10*3/uL [facility] Eosinophils Absolute Auto 0.3 0.0 - 0.4 X10*3/uL [facility] Basophils Absolute Auto 0.0 0.0 - 0.2 X10*3/uL [facility] NRBC Abs Auto 0.000 0.0 - 0.012 X10*3/uL [facility] 04/14/2024 12:3 8 PM EST 04/14/2024 1:44 PM EST us Generic External Data Provider LAB BLOOD ORDERAB LES Final Result Performing Organization Address City/State/[facility] Co de Phone Number [facility] [address] [place] [phone] documented in this encounter Visit Diagnoses Not on filedocumented in this encounter Additional Health Concerns Assessment Noted Time PHQ-9 Depression Total Score: 7 08/20/19 24 10:35 AM EDT documented as of this encounter Care Teams Rd Project Manager Relationship Specialty Start Date End Date Miranda Maravilla DO [address] [place] [phone] PCP - General Family Medicine 09/26/19 documented as of this encounter
--- OUTSIDE RECORDS SUMMARY | 2024-04-30 14:04 | XMS_ITS | Encounter Summary ---
Author Organization [employer] Address [address] [facility] [address] [place] [address] Care Team Providers Care Refinish Technician Name Role Phone Miranda Maravilla DO Primary Care Provider + [phone] Reason for Visit * Reason Comments Med Refill Encounter Details Date Type Department Care Team ([facility] st Contact Info) Description 04/11/2024 Refill [facility] [address] [place] [address] Miranda Maravilla DO [address] [place], [place] [phone] Pain Social History Tobacco Use Types Packs/Day [...] documented as of this encounter Care Teams Refinish Technician Relationship Specialty Start Date End Date Miranda Maravilla DO [address] [place] [phone] PCP - General Family Medicine 09/26/19 documented as of this encounter
--- OUTSIDE RECORDS SUMMARY | 2024-04-30 14:04 | XMS_ITS | Encounter Summary ---
Author Organization [employer] Address [address] [facility] 7[address] [place] [address] Care Team Providers Care Medical Technician Assistant Name Role Phone Miranda Maravilla DO Primary Care Provider + [phone] Reason for Visit * Reason Comments Med Refill Encounter Details Date Type Department Care Team ([facility] st Contact Info) Description 07/22/2022 Refill [facility] [address] [place] [address] Miranda Maravilla DO [address] [place], [place] [phone] Social History Tobacco Use Types Packs/Day Years [...] documented as of this encounter Care Teams Medical Technician Assistant Relationship Specialty Start Date End Date Miranda Maravilla DO [address] [place] [address] PCP - General Family Medicine 09/26/19 documented as of this encounter
--- OUTSIDE RECORDS SUMMARY | 2024-04-30 14:04 | XMS_ITS | Encounter Summary ---
Author Organization [employer] Address 75 [facility] 7t [place] [address] Care Team Providers Care Optical Advisor Name Role Phone Miranda Maravilla DO Primary Care Provider + [phone] Reason for Visit * Reason Comments Med Refill Encounter Details Date Type Department Care Team ([facility] st Contact Info) Description 06/11/2023 Refill [facility] [address] [place] [address] Miranda Maravilla DO [address] [place], [place] [phone] Pain Social History Tobacco Use Types Packs/Day [...] the past 12 months, has t he [employer], gas, oil or water company threatened to [...] documented as of this encounter Care Teams Optical Advisor Relationship Specialty Start Date End Date Miranda Maravilla DO [address] [place] [address] PCP - General Family Medicine 09/26/19 documented as of this encounter
--- OUTSIDE RECORDS SUMMARY | 2024-04-30 14:04 | XMS_ITS | Encounter Summary ---
Author Organization [employer] Address [address] [facility] [address] [place] [address] Care Team Providers Care Hand Tufter Name Role Phone Miranda Maravilla DO Primary Care Provider + [phone] Reason for Visit * Reason Onset Date Comments Nurse Triage 04/08/2024 Encounter Details Date Type Department Care Team ([facility] st Contact Info) Description 04/08/[address] [facility] [address] [place], [place] [phone] Miranda Maravilla DO [address] [place], [place] [phone] Nurse Triage Social History Tobacco Use Types [...] AM EST Triage call returned with BLS #[id number] [place]. Patient Mom on phone who reports [...] documented as of this encounter Care Teams Hand Tufter Relationship Specialty Start Date End Date Miranda Maravilla DO [address] [place] [address] PCP - General Family Medicine 09/26/19 documented as of this encounter
--- OUTSIDE RECORDS SUMMARY | 2024-04-30 14:04 | XMS_ITS | Encounter Summary ---
Author Organization [employer] Address [address] [facility] [address] [place] [address] Care Team Providers Care Personnel Technician Name Role Phone Miranda Maravilla DO Primary Care Provider + [phone] Reason for Visit * Reason Comments Med Refill Encounter Details Date Type Department Care Team ([facility] st Contact Info) Description 07/26/2022 Refill [facility] [address] [place] [address] Miranda Maravilla DO [address] [place], [place] [phone] Social History Tobacco Use Types Packs/Day Years [...] documented as of this encounter Care Teams Personnel Technician Relationship Specialty Start Date End Date Miranda Maravilla DO [address] [place] [address] PCP - General Family Medicine 09/26/19 documented as of this encounter
--- OUTSIDE RECORDS SUMMARY | 2024-04-30 14:04 | XMS_ITS | Encounter Summary ---
Author Organization [employer] Address [address] [facility] [address] [place] [address] Care Team Providers Care Business Services Tech Name Role Phone Miranda Maravilla DO Primary Care Provider + [phone] Encounter Details Date Type Department Care Team ([facility] st Contact Info) Description 04/05/2022 Telephone [facility] [address] [place], [place] [phone] Miranda Maravilla DO [address] [place], [place] [phone] Social History Tobacco Use Types Packs/Day Years [...] documented as of this encounter Care Teams Business Services Tech Relationship Specialty Start Date End Date Miranda Maravilla DO [address] [place] [address] PCP - General Family Medicine 09/26/19 documented as of this encounter
--- OUTSIDE RECORDS SUMMARY | 2024-04-30 14:04 | XMS_ITS | Encounter Summary ---
Author Organization [employer] Address [address] [facility] [address] [place] [address] Care Team Providers Care Transplanter Name Role Phone Miranda Maravilla DO Primary Care Provider + [phone] Reason for Visit * Reason Comments Med Refill Encounter Details Date Type Department Care Team ([facility] st Contact Info) Description 05/18/2022 Refill [facility] [address] [place] [address] Miranda Maravilla DO [address] [place], [place] [phone] Social History Tobacco Use Types Packs/Day Years [...] documented as of this encounter Care Teams Transplanter Relationship Specialty Start Date End Date Miranda Maravilla DO [address] [place] [address] PCP - General Family Medicine 09/26/19 documented as of this encounter
--- OUTSIDE RECORDS SUMMARY | 2024-04-30 14:04 | XMS_ITS | Encounter Summary ---
Author Organization [employer] Address 75 [facility] 7t [place] [address] Care Team Providers Care Personalized Living Assistant Name Role Phone Miranda Maravilla DO Primary Care Provider + [phone] Encounter Details Date Type Department Care Team [...] documented as of this encounter Care Teams Personalized Living Assistant Relationship Specialty Start Date End Date Miranda Maravilla DO [address] [place] [phone] PCP - General Family Medicine 09/26/19 documented as of this encounter
--- OUTSIDE RECORDS SUMMARY | 2024-04-30 14:04 | XMS_ITS | Encounter Summary ---
Author Organization [employer] Address [address] [facility] 7t [place] [address] Care Team Providers Care Experimental Outboard Motors Mechanic Name Role Phone Miranda Maravilla DO Primary Care Provider [phone] Reason for Referral * Consultation (Urgent) - Authorized Specialty Diagnoses / Procedures Referred By Kuldeep johnson Referred To Contact General Surgery Diagnoses Epigastric pain Miranda Maravilla DO [address] [place], [place] Phone: tel: fax: Jarrett Van MD [address] [place] [address] Phone: tel: fax: Referral ID Status Reason Start Date Expiration Date Visits Requested Visits Authorized [id number] Authorized Specialty Services Required 04/14/2024 04/14/2025 1 1 * Imaging (Routine) - Authorized Specialty Diagnoses / Procedures Referred By Kuldeep johnson Referred To Contact Radiology Diagnoses Epigastric pain Procedures US Abdomen Complete Miranda Maravilla DO [address] [place], [place] Phone: tel: fax: [facility] [address] [place] [address] Phone: tel: fax: Referral ID Status Reason Start Date Expiration Date V isits Requested Visits Authorized [id number] Authorized 04/14/2024 04/14/2025 1 1 Encounter Details Date Type Department Care Team (Late st Contact Info) Description 04/14/2024 12:00 PM EST Office Visit [facility] [address] [place], [place] [phone] Miranda Maravilla DO [address] [place] [address] Epigastric pain (Primary Dx); Fatty liver; Abnormal [...] Tumor Marker (04/14/2024 12:38 PM EST) Pathologist [facility] Alpha Fetoprotein 3.1 ng/mL [facility] Comment:Reference Range: <6. 1The use of AFP as a tumor marker in females is not recommended.This test was performed using the Jessica Coulterchemiluminescent method. Values obtained fromdifferent assay methods cannot be usedinterchangeably. AFP levels, regardless ofvalue, should not be interpreted as absoluteevidence of the presence or absence of disease.THIS TEST WAS PERFORMED AT:[facility] [place] [id number] ROSE MD Blood Venous blood specimen / Unknown 04/14/2024 12:38 PM EST 04/14/2024 1:44 PM EST Miranda Maravilla LAB BLOOD ORDERABLES Final R esult Performing Organization Address [facility]/ZIP Co de Phone Number [facility] [address] [place] [phone] * Lipase (04/14/2024 12:38 PM EST) Pathologist [facility] Lipase 31 8 - 78 U/L [facility] Blood Venous blood specimen / Unknown 04/14/2024 12:38 PM EST 04/14/2024 1:44 PM EST [facility] BLO[facility] ORDER[facility] Final R esult Performing Organization Address [facility]/ZIP Co de Phone Number [facility] [address] [place] [address] [phone] * Amylase (04/14/2024 12:38 PM EST) Pathologist [facility] Amylase 57 28 - 100 U/L [facility] Blood Venous blood specimen / Unknown 04/14/2024 12:38 PM EST 04/14/2024 1:44 PM EST Miranda Maravilla LAB BLOOD ORDERABLES Final R esult Performing Organization Address City/[facility]/ZIP Co de Phone Number [facility] [address] [place] [phone] * (ABNORMAL) CBC (04/14/2024 12:38 PM EST) White Blood Count 4.9 4.8 - 10.8 X10*3/uL [facility] Red Blood Count 4.69 4.20 - 5.50 X10*6/uL [facility] Hemoglobin 12.5 12.0 - 16.0 g/dl [facility] Hematocrit 40.6 37.0 - 47.0 % [facility] Mean Corpuscular Volume 86.6 80.0 - 98.0 fL [facility] Mean Corpuscular Hemoglobin 26.7(L) 27.0 - 33.0 pg [facility] Mean Corpuscular HGB Conc 30.8(L) 31.0 - 35.0 g/dl [facility] Red Cell Distribution Width 17.2(H) 11.0 - 16.0 % [facility] Platelet Count 161 160 - 400 X10*3/uL [facility] Mean Platelet Volume 11.3 9.4 - 12.3 fL [facility] NRBC Pct Auto 0.0 0.0 - 0.2 /100WBC [facility] NRBC Abs Auto 0.000 0.0 - 0.012 X10*3/uL [facility] Blood Venous blood specimen / Unknown 04/14/2024 12:38 PM EST 04/14/2024 1:44 PM EST Miranda Maravilla DO LAB BLOOD ORDERABLES Final R esult [facility] [address] [place] [phone] * Hemoglobin A1c (04/14/2024 12:38 PM EST) Hemoglobin A1c 5.3 <6.0 % [facility] Comment:Hemoglobin A1C Refer ence Range Adults: 4.8 - 6.0 % Non diabetic: < 6.0 % Goal: < 7.0 %Additional Action Suggested: > 8.0 %Note: Hemoglobin A1c results are invalid for patients with abnormal amounts of HbF. Blood transfusions may impact the HbA1c concentration in the patient sample. Estimated Average Glucose 105 mg/dL [facility] Comment:eAG = Estimated ave rage glucose which is %A1C expressed asaverage glucose, using the formula of the V5X-JvkssqxIsvzdzi Glucose study (ADAG), Diabetes Care, Vol.31,#8,Nov. 2007 Blood Venous blood specimen / Unknown 04/14/2024 12:38 PM EST 04/14/2024 1:44 PM EST us Miranda Maravilla DO LAB BLOOD ORDERABLES Final R esult Performing Organization Address [facility] Co de Phone Number [facility] [address] [place] [phone] * Hepatic Function Panel (04/14/2024 12:38 PM EST) Bilirubin, Direct 0.1 0.0 - 0.5 mg/dL [facility] Blood Venous blood specimen / Unknown 04/14/2024 12:38 PM EST 04/14/2024 1:44 PM EST Miranda Maravilla DO LAB BLOOD ORDERABLES Final R esult Performing Organization Address [facility] Co de Phone Number [facility] [address] [place] [phone] * Vitamin D, 25-Hydroxy, Total, Immunoassay (04/14/2024 12:38 PM EST) Vitamin D 25-OH Total 42.5 >30 ng/mL [facility] Comment:Health Based Referen ce Values*< 20 ng/mL Onsznokfo20-90 ng/mL Insufficient> 30 ng/mL Sufficient*Sarah MENDEZ. N [...] DO LAB BLOOD ORDERABLES Final R esult [facility] [address] [place] [address] [phone] * (ABNORMAL) Lipid Panel, Standard (04/14/2024 12:38 PM EST) Triglycerides 82 <150 mg/dL [facility] Comment:Desirable Triglyceri de: less than 150 mg/dLBorderline High Triglyceride 150-199 mg/dLHigh Triglyceride: 200-499 mg/dLVery High Triglyceride: greater than or equal to 5OO mg/dL Cholesterol 199 <200 mg/dL [facility] Comment:Desirable Cholestero l: less than 200 mg/dLBorderline High Cholesterol: 200-239 mg/dLHigh Cholesterol: greater than 239 mg/dL LDL Cholesterol Calculated 104(H) <100 mg/dL [facility] Comment:Desirable LDL: less than 100 mg/dLNear Optimal/Above Optimal LDL: 110- 129 mg/dLBorderline High LDL: 130-159 mg/dLHigh LDL: 160-189 mg/dLVery High LDL: greater than or equal to 190 mg/dL HDL Cholesterol 79 >40 mg/dL [facility] Comment:Desirable HDL: great er than 40 mg/dL Note: This HDL assay may give artificially low results in patients with liver disease. Blood Venous blood specimen / Unknown 04/14/2024 12:38 PM EST 04/14/2024 1:44 PM EST us Miranda Maravilla DO LAB BLOOD ORDERABLES Final R esult [facility] [address] [place] [phone] documented in this encounter Visit Diagnoses [...] documented as of this encounter Care Teams Experimental Outboard Motors Mechanic Relationship Specialty Start Date End Date Miranda Maravilla DO [address] [place] [address] PCP - General Family Medicine 09/26/19 documented as of this encounter
--- OUTSIDE RECORDS SUMMARY | 2024-04-30 14:04 | XMS_ITS | Encounter Summary ---
Author Organization [employer] Address [address] [facility] [address] [place] [address] Care Team Providers Care Warehouse Distribution Specialist Name Role Phone Miranda Maravilla DO Primary Care Provider + [phone] Reason for Visit * Reason Comments Med Refill Encounter Details Date Type Department Care Team ([facility] st Contact Info) Description 04/04/2024 Refill [facility] [address] [place] [address] Miranda Maravilla DO [address] [place], [place] [phone] Social History Tobacco Use Types Packs/Day Years [...] documented as of this encounter Care Teams Warehouse Distribution Specialist Relationship Specialty Start Date End Date Miranda Maravilla DO [address] [place] [phone] PCP - General Family Medicine 09/26/19 documented as of this encounter
[2024-04-30 15:07] LABS: Adenovirus PCR Not Detected (Not Detect.); Bordetella parapertussis PCR Not Detected (Not Detect.); Bordetella pertussis PCR Not Detected (Not Detect.); Chlamydia pneumoniae PCR Not Detected (Not Detect.); Coronavirus 229E PCR Not Detected (Not Detect.); Coronavirus HKU1 PCR Not Detected (Not Detect.); Coronavirus NL63 PCR Not Detected (Not Detect.); Coronavirus OC43 PCR Not Detected (Not Detect.); Human metapneumovirus PCR Not Detected (Not Detect.); Influenza A PCR Not Detected (Not Detect.); Influenza B PCR Not Detected (Not Detect.); Mycoplasma pneumoniae PCR Not Detected (Not Detect.); Parainfluenza 1 PCR Not Detected (Not Detect.); Parainfluenza 2 PCR Not Detected (Not Detect.); Parainfluenza 3 PCR Not Detected (Not Detect.); Parainfluenza 4 PCR Not Detected (Not Detect.); RSV PCR Not Detected (Not Detect.); Rhino/Enterovirus PCR Not Detected (Not Detect.)
[2024-04-30 15:33] LABS: SARS-CoV-2 PCR Not Detected (Not Detect.)
== END 2024-04-29 00:01 | disposition home or self-care (01) ==
LOC: HO.HHCLNP
PROVIDERS: Visit Provider Family Medicine
DX: J06.9 Acute upper respiratory infection, unspecified (principal)
CPT/HCPCS: 87633

== ENCOUNTER 2024-04-30 11:20 | Outpatient (REF) | payer MEDICARE, MEDICAID, SELFPAY ==
--- NOTE | ~2024-04-30 | XR_ITS ---
EXAMINATION: XR CHEST CLINICAL INFORMATION: 2-week duration of cough and congestion. COMPARISON: Chest [id number] TECHNIQUE: 2 views of the chest were obtained. FINDINGS: The lungs are well-expanded and clear acute process. Heart size and pulmonary vascularity is normal. There is moderate dextroscoliosis. 2 Aguayo rods in the thoracic spine spine. Incidental finding of a Silastic catheter in the right upper chest wall. XR/XR chest 2V IMPRESSION: No acute cardiopulmonary process seen. 2 Aguayo rods in thoracic spine for correction of dextroscoliosis. Stable Silastic catheter in the right upper anterior chest wall. Electronically signed by: Guero Cartwright MD 04/30/2024 01:28 PM EST
--- OUTSIDE RECORDS SUMMARY | 2024-04-30 13:02 | XMS_ITS | Clinical Summary ---
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 Active FLUoxetine (PROzac) 20 MG capsule Take 1 capsule by mouth at bed time. Active lamoTRIgine (LaMICtal) 100 MG tablet take 1 tablet by oral route once daily in the morning Active polyethylene glycol, PEG, 3350 (Glycolax) 17 GM/SCOOP powder take (17G) by oral route every day mixed with 8 oz. water, juice, soda, coffee or tea as needed for Constipation 022 Active polyvinyl alcohol (Liquifilm Tears) 1.4 % ophthalmic solution In drop in each eye twice a day prn dry eyes Active zolpidem (Ambien) 10 MG tabletIndications: Obstructive sleep apnea Take 1 tablet by mouth 30 minutes before sleep study 1 tablet 023 Active fluticasone (Flonase) 50 MCG/ACT nasal sprayIndications:S easonal allergic rhinitis, unspecified trigger USE 2 SPRAYS IN EACH NOSTRIL EVERY DAY 48 g 023 Active albuterol (ProAir HFA) 108 (90 Base) MCG/ACT inhalerIndications :Moderate persistent asthma without complication,Obstr uctive sleep apnea syndrome,Obesity hypoventilation syndrome (CMS/HCC) Inhale 2 puffs every 4 (four) hours if needed for shortness of breath or wheezing. 18 g 11 023 Active albuterol (2.5 MG/3ML) 0.083% nebulizer solutionIndication s:Moderate persistent asthma with acute exacerbation INHALE 1 AMPULE USING A NEBULIZER EVERY 4 HOURS NEEDED 90 mL 3 023 Active Diclofenac Sodium 1 % gelIndications:Chr onic knee pain, unspecified laterality APPLY TO THE AFFECTED AREA(S) 2 GRAMS TOPICALLY TWICE DAILY IN THE MORNING AND AT BEDTIME NEEDED FOR PAIN 100 g 024 Active docusate sodium (Colace) 100 MG capsule TAKE 1 CAPSULE BY MOUTH TWICE DAILY NEEDED 180 capsule 3 024 Active senna (Senokot) 8.6 MG tabletIndications: Chronic constipation TAKE 2 TABLETS BY MOUTH AT BEDTIME NEEDED FOR CONSTIPATION 180 tablet 3 024 Active Petrolatum 42 % ointment APPLY TOPICALLY TO SKIN TWICE DAILY NEEDED 454 g 5 024 Active torsemide (Demadex) 20 MG tablet Take 1 tablet (20 mg) by mouth Once per day. 30 tablet 024 2024 Active Ketotifen Fumarate (Alaway) 0.035 % solution Administer 1 drop into affected eye(s) if needed in the morning and at bedtime (eye itching). 10 mL 2 024 Active hydrocortisone 2.5 % cream Apply topically if needed in the morning and at bedtime (foot rash). 28 g 1 024 Active ipratropium-albute rol (Duo-Neb) 0.5-2.5 mg/3 mL nebulizer solutionIndication s:Unspecified asthma, uncomplicated INHALE 1 AMPULE USING A NEBULIZER THREE TIMES DAILY 180 mL 3 024 Active Fluticasone Furoate-Vilanterol (Breo Ellipta) 200-25 MCG/ACT aerosol powderIndications: Moderate persistent asthma without complication,Obstr uctive sleep apnea syndrome,Obesity hypoventilation syndrome (CMS/HCC) Inhale 1 puff Once per day. 1 each Active cetirizine (ZyrTEC) 10 MG tablet Take 1 tablet (10 mg) by mouth Once per day. 30 tablet 024 2024 Active baclofen (Lioresal) 10 MG tabletIndications: Muscle spasm TAKE 1/2 TO 1 TABLET BY MOUTH EVERY DAY AT BEDTIME NEEDED FOR MUSCLE SPASMS 30 tablet 3 Active naproxen (Naprosyn) 500 MG tabletIndications: Pain TAKE 1 TABLET BY MOUTH TWICE DAILY WITH FOOD NEEDED FOR PAIN 20 tablet 1 Active triamcinolone (Kenalog) 0.1 % ointment APPLY 1 GRAM TOPICALLY TO AFFECTED AREA(S) TWICE DAILY IN THE MORNING AND AT BEDTIME NEEDED FOR RASH 30 g 1 Active acetaminophen (Tylenol 8 Hour) 650 MG ER tablet TAKE 1 TABLET BY MOUTH EVERY 6 HOURS NEEDED FOR MILD PAIN 60 tablet 1 Active calcium carbonate (Calcium Antacid) 500 MG chewable tablet CHEW AND SWALLOW 2 TABLETS BY MOUTH FOUR TIMES DAILY AFTER MEALS AND AT BEDTIME NEEDED FOR HEARTBURN 150 tablet 1 Active omeprazole (PriLOSEC) [address] capsule Take 1 capsule (20 mg) by mouth before breakfast. Do not crush or chew. 30 capsule 11 025 2025 Active azithromycin (Zithromax Z-Alan) 250 MG tablet Take 2 tablets once on day 1, then 1 tablet 1x/day for 4 days. 6 tablet Active traZODone (Desyrel) 50 MG tablet TAKE 2 TABLETS BY MOUTH AT BEDTIME NEEDED 60 tablet 3 024 2024 Discontinued(D iscontinued by another clinician) calcium carbonate (Calcium Antacid) 500 MG chewable tablet CHEW AND SWALLOW 2 TABLETS BY MOUTH FOUR TIMES DAILY AFTER MEALS AND AT BEDTIME NEEDED FOR HEARTBURN 150 tablet 1 024 2023 Discontinued predniSONE (Deltasone) 20 MG tablet Take 2 tablets (40 mg) by mouth Once per day for 5 days. 10 tablet 025 2024 Active Problems Problem Noted Date Diagnosed Date Tinea pedis of both feet 09/21/2023 Assessment & Plan (09/21/2023 2:52 PM EDT): CMP ordered to verified LFTs are good I advise mother to let oncologist know I will start her on fluconazole weekly for 4 Healthcare maintenance 08/20/2023 Cancer of left breast, stage 3 08/20/2023 Swelling of both lower extremities 04/11/2023 History of COVID-19 11/07/2022 Pulmonary hypertension 11/07/2022 Supplemental oxygen dependent 11/07/2022 Fatty liver 11/07/2022 Depressive disorder 03/28/2022 Chronic constipation 03/28/2022 Obesity hypoventilation syndrome 03/23/2022 Allergic rhinitis 03/18/2022 Cholelithiasis 03/18/2022 Intermittent explosive disorder 03/18/2022 Moderate intellectual disability 03/18/2022 Moderate persistent asthma 03/18/2022 BMI 40.0-44.9, adult 03/18/2022 Scoliosis 03/18/2022 Oropharyngeal dysphagia 08/07/2018 Chronic gastroesophageal reflux disease 10/30/19 13 GEORGE (obstructive sleep apnea) 09/28/2011 Resolved Problems Problem Noted Date Diagnosed Date Resolved Date Encounter for insertion of t unneled central venous catheter (CVC) with port 08/20/2023 08/20/19 Primary malignant neoplasm of breast 08/20/2023 08/20/2023 Breast mass, left 08/20/2023 08/20/2023 Viral upper respiratory tract infection 01/19/2023 04/11/2023 Assessment & Plan (01/19/2023 10:23 AM EDT): Rest drink plenty of fluids Moderate persistent asthma with exacerbation 04/11/2023 Assessment & Plan (01/19/2023 10:22 AM EDT): Avoid asthma triggers Continue with albuterol nebz at home Prednisone If symptoms persist or worse got to emergency department Moderate asthma with exacerbation 11/22/2022 01/11/2023 Assessment & Plan (11/22/2022 2:28 PM EDT): Patient and family educated to avoid triggers likely URI that trigger mild exacerbation Albuterol nebz Q 4-6hrs as needed Prednisone 40mg for 5 days If symptoms persist or worse seek medical attention ED precautions reviewed Asthma 11/07/2022 11/07/2022 Chest pain 11/07/2022 11/07/2022 Colon cancer screening 11/07/202211/07 Dyspnea on exertion 11/07/2022 11/08/19 23 Elevated brain natriuretic p eptide (BNP) level 11/07/2022 11/07/2022 Hospital discharge follow-up 11/07/2022 11/07/2022 Right leg swelling 11/07/2022 3 Oxygen desaturation during sleep 11/07/2022 11/07/2022 Pneumonia 11/07/2022 11/07/2022 Cough 06/22/2022 11/07/2022 Overview (06/22/2022): Likely microfactoral. Possible couhging on saliva, given her OP anatomy. She is being worked up for sleep apnea . No evidence of heeze on exam today. Will refer to speech and swallow for evaluation of her swallowing during speech. No evidence of respitory distress. Follow up PRN. Assessment & Plan (06/22/2022 2:08 PM EDT): Likely microfactoral. Possible couhging on saliva, given her OP anatomy. She is being worked up for sleep apnea . No evidence of heeze on exam today. Will refer to speech and swallow for evaluation of her swallowing during speech. No evidence of respitory distress. Follow up PRN. Acute on chronic respiratory failure with hypoxia and hypercapnia 03/18/2022 11/07/2022 Closed fracture of orbit 03/18/2022 Steatosis of liver 03/18/2022 3 Streptococcal sore throat 03/18/2022 Tachycardia 03/18/2022 03/23/2022 Extreme obesity with alveolar hypoventilation 04/12/19 19 03/23/2022 Encounters Date Type Department Care Team Description 04/29/2024 6:20 PM EST Office Visit [facility] WALK-IN [address] [phone] Oliver Bates MD Viral URI 04/25/2024 Orders Only [facility] [address] [place] [address] ProviderJo Ann MD 04/22/2024 11:00 AM EST Office Visit [facility] WALK-[place] [address] [place] [address] Madhu Anthony MD Moderate persistent asthma with acute exacerbation (Primary Dx); Viral URI 04/18/2024 3:00 PM EST Office Visit [facility] MEDICINE [address] [place] [address] Eusebia Valdez MD Onychodystrophy (Primary Dx) 04/18/2024 Travel 04/14/2024 12:00 PM EST Office Visit [facility] [place] [address] Miranda Maravilla DO Epigastric pain (Primary Dx); Fatty liver; Abnormal finding of blood chemistry, unspecified; Body mass index (BMI) 40.0-44.9, adult (CMS/[facility]); Mixed hyperlipidemia; Encounter for immunization 04/14/2024 Orders Only GENERIC EXTERNAL DATA DEPARTMENT Provider, Generic External Data 04/14/2024 Travel 04/11/2024 Refill [facility] [place] [address] Miranda Maravilla DO Pain 04/08/2024 Telephone [facility]ICINE [address] [place] [address] Miranda Maravilla DO Nurse Triage 04/04/2024 Refill [facility] [address] [place] [address] Miranda Maravilla, 03/14/2024 Telephone [facility] [place] [address] Conchita Durham, RN Nebulizer physician order 03/12/2024 Refill [facility] [address] [place] [address] Miranda Maravilla, 03/04/2024 Refill [facility] [place] [address] Miranda Maravilla, 02/15/2024 Refill [facility] [place] [address] Miranda Maravilla DO Pain 02/12/2024 Orders Only [facility] External Provider, [facility] from Last 3 Months Immunizations Name Administration Dates Next Due Hep B, Adolescent or Pediatric 06/28/2001,1999,12/08/1998 Influenza injectable quadriv alent IIV4 with preservative 01/24/2018,02/28/2017 Influenza injectable quadriv alent preservative free 01/11/2023,03/28/2022,01/14/2021,01/12,04/07/2019 Influenza, IIV3, injectable 04/27/2011 Influenza, Split (incl. marysol fied surface antigen) 01/30/2013,12/26/2011 Influenza, seasonal, injecta ble, preservative free 04/14/2024 Moderna Covid-19 Vaccine 12+ 05/04/2021,08/11/19,07/09/2020 Pfizer Covid-19 Vaccine 12+ 04/11/2023 Pfizer Covid-19 Vaccine 12+ Bivalent 03/28/2022 Pneumococcal Conjugate PCV 20 05/09/2022 Pneumococcal Polysaccharide PPSV23 07/11/2014 TD (adult), 2 Lf tetanus tox oid, preservative free, adsorbed 03/28/2022,05/05/2004 Tdap 01/02/2012 Family History Medical History Relation Name Comments Depression Father Hypertension Father Diabetes Mother Hypertension Mother Esophageal cancer Mother's Brother Relation Name Status Comments Father Mother Mother's Brother Social History Tobacco Use Types Packs/Day Years Used Date Smoking Tobacco: Never Passive Smoke Exposure: Never Smokeless Tobacco: Never Tobacco Cessation:Counseling Given: Not Answered Alcohol Use Standard Drinks/Week Comments Never 0 (1 standard drink = 0.6 oz pur e alcohol) Depression Answer Date Recorded Patient Health Questionnaire-9 Score 7 08/20/2023 Patient Health Questionnaire-9 Score 7 08/20/2023 Last PHQ-9: Questionnaire Data Not on file 0 08/20/2023 Housing Stability Answer Date Recorded What is your housing situation today? I have obed gutierres 08/20/[address] you li ve. Do you have problems with any of the following? None of the above 08/20/2023 Food Insecurity Answer Date Recorded Within the past 12 months, y ou worried that your food would run out before you got money to buy more: Never True 08/20/2023 Within the past 12 months,th e food you bought just didn't last and you didn't have enough money to get more: Never True Transportation Answer Date Recorded In the past 12 months, has l ack of transportation kept you from medical appts, meetings, work or from getting things needed for daily living? No 08/20/2023 Utilities Answer Date Recorded In the past 12 months, has t he electric, gas, oil or water company threatened to shut off services in your home? No 08/20/2023 Depression Answer Date Recorded Patient Health Questionnaire-2 Score 2 08/20/2023 Comments Unknown Sex and Gender Information Value Date Recorded Sex Assigned at Female 2022 10:14 AM EDT Legal Sex Female 10:14 AM EDT Gender Identity Female 2022 10:14 AM EDT Sexual Orientation Bisexual 2022 10 :14 AM EDT Last Filed Vital Signs Vital Sign Reading Time Taken Comments Blood Pressure 107/72 04/29/2024 5:10 PM EST Pulse 97 04/29/2024 5:10 PM EST Temperature 36.3 ??C (97.4 ??F) 04/29/2024 5:10 PM ES T Respiratory Rate 16 04/29/2024 5:10 PM EST Oxygen Saturation 97% 04/29/2024 5:10 PM EST Inhaled Oxygen Concentration - - Weight 103 kg (227 lb) 04/29/2024 5:10 PM EST Height 157.5 cm (5' 2 ) 04/29/2024 5:10 PM EST Body Mass Index 41.52 04/29/2024 5:10 PM EST Plan of Treatment Health Maintenance Due Date Last Done Comments CT Colonography 1975 Colonoscopy 1975 FIT 1975 FOBT 1975 Sigmoidoscopy 1975 Family Planning (PISQ) 1990 Hepatitis A Vaccines (1 of 2 - Risk 2-dose series) 1994 Hepatitis B Vaccines (1 of 3 - 19+ 3-dose series) 1994 06/28/2001, 01/26/2000, 12/08/1998 Pap Smear 02/07/1996 Cervical Cancer Screening 2005 HPV/Cotest 2005 COVID-19 Vaccine ( season) 2023 04/11/2023, 03/28/2022, 05/04/2021, Additional history exists Depression Screening 08/19/2024 08/20/2023, 08/20/19 24 SDOH Screening 08/19/2024 08/20/2023 Zoster Vaccines (1 of 2) 2025 Alcohol/Substance Use Screening 04/14/2025 04/14/2024 Tobacco Screening 04/29/2025 04/29/2024 Colorectal Cancer Screening 03/04/2026 FIT DNA/Cologuard 03/04/2026 03/04/2023 Lipid Panel 04/14/2029 04/14/2024, 01/08, 10/24/2019 DTaP/Tdap/Td Vaccines (3 - Td or Tdap) 03/28/2032 03/28/2022, 01/02/2012, 05/05/2004 RSV Patients and Patients Aged 60 years or older (1 - 1-dose 75+ series) 2050 HIV Screening Completed 10/24/2019 Hepatitis C Screening Completed 10/24/2019 Pneumococcal Vaccine: Pediatrics (0 to 5 Years) and At-Risk Patients (6 to 64 Years) Completed 05/09/2022, 07/11/2014 Influenza Vaccine Completed 04/14/2024, , 03/28/2022, Additional history exists HIB Vaccines Aged Out No longer eligi ble based on patient's age to complete this topic HPV Vaccines Aged Out No longer eligi ble based on patient's age to complete this topic IPV Vaccines Aged Out No longer eligi ble based on patient's age to complete this topic Meningococcal Vaccine Aged Out No vishnu jose eligible based on patient's age to complete this topic RSV under 20 months Aged Out No longe r eligible based on patient's age to complete this topic Rotavirus Vaccines Aged Out No longer eligible based on patient's age to complete this topic Procedures Procedure Name Priority Date/Time Associated Diagnosis Comments POCT INFLUENZA B (ID NOW RAPID MOLECULAR) Routine 04/29/2024 7:14 PM EST Viral URI POCT INFLUENZA A (ID NOW RAPID MOLECULAR) Routine 04/29/2024 7:14 PM EST Viral URI POCT RAPID COVID ANTIGEN Routine 04/29/2024 7:14 PM EST Viral URI POCT INFLUENZA B (ID NOW RAPID MOLECULAR) Routine 04/22/2024 12:00 PM EST Viral URI POCT INFLUENZA A (ID NOW RAPID MOLECULAR) Routine 04/22/2024 12:00 PM EST Viral URI POCT RAPID COVID ANTIGEN Routine 04/22/2024 12:00 PM EST Viral URI DERMATOPATHOLOGY REPORT Routine 04/18/19 25 2:57 PM EST CANCER ANTIGEN 27.29 Routine 04/14/2024 12:38 PM EST COMPREHENSIVE METABOLIC PANEL Routine 04/14/2024 12:38 PM EST CBC WITH AUTO DIFFERENTIAL Routine 04/14/2024 12:38 PM EST ALPHA FETOPROTEIN, TUMOR MARKER Routine 04/14/2024 12:38 PM EST Epigastric pain Fatty liver Mixed hyperlipidemia LIPASE Routine 04/14/2024 12:38 PM EST Epigastric pain AMYLASE Routine 04/14/2024 12:38 PM EST Epigastric pain CBC Routine 04/14/2024 12:38 PM EST Epigastric pain HEMOGLOBIN A1C Routine 04/14/2024 12:38 PM EST Epigastric pain Abnormal finding of blood chemistry, unspecified HEPATIC FUNCTION PANEL Routine 12:38 PM EST Epigastric pain VITAMIN D,25-OH,TOTAL,IA Routine 04/14/2024 12:38 PM EST Epigastric pain Body mass index (BMI) 40.0-44.9, adult (CMS/HCC) LIPID PANEL, STANDARD Routine 04/14/2024 12:38 PM EST Epigastric pain Abnormal finding of blood chemistry, unspecified PET/CT BONE SKULL BASE TO MID THIGH Routine 02/12/2024 11:30 AM EST LAB COLOGUARD?? COLON CANCER SCREEN Routine 03/04/2023 11:20 PM EST Healthcare maintenance ZZZ HISTORICAL HEPATITIS C AB W/REFL TO HCV RNA, QN, PCR Routine 10/24/2019 9:16 AM EDT HIV 1/2 ANTIGEN/ANTIBODY, FOURTH GENERATION W/RFL Routine 10/24/2019 9:16 AM EDT from Last 3 Months or Most Recently Relevant to Health Maintenance Results * POCT Rapid Influenza B ONTIVEROS ID NOW (04/29/2024 7:14 PM EST) Only the most recent of2 resultswithin the time period is included. Influenza B Negative Negative, Indeterminate [facility] QC Media Lot # [id number] [facility] Lot# Expiration Date [facility] Swab 04/29/2024 7:14 PM EST us Oliver Bates MD POINT OF CARE TEST ENTER/EDIT OR DERABLES Final Result [facility] [address] [place] [phone] * POCT Rapid Influenza A ONTIVEROS ID NOW (04/29/2024 7:14 PM EST) Only the most recent of2 resultswithin the time period is included. Influenza A Negative Negative, Indeterminate [facility] QC Media Lot # [id number] [facility] Lot# Expiration Date [facility] Swab 04/29/2024 7:14 PM EST us Oliver Bates MD POINT OF CARE TEST ENTER/EDIT OR DERABLES Final Result [facility] [address] [place] [address] [phone] * POCT Rapid Covid-19 BinaxNOW (04/29/2024 7:14 PM EST) Only the most recent of2 resultswithin the time period is included. Rapid COVID Ag Negative QC Media Lot # [id number] Lot# Expiration Date Swab 04/29/2024 7:14 PM EST Oliver Bates MD POINT OF CARE TEST ENTER/EDIT OR DERABLES Final Result * Dermatopathology Report (04/18/2024 2:57 PM EST) Jo Ann Christopher MD LAB BLOOD ORDERABLES Barby l Result * Vitamin D, 25-Hydroxy, Total, Immunoassay (04/14/2024 12:38 PM EST) Vitamin D 25-OH Total 42.5 >30 ng/mL [facility] Comment:Health Based Referen ce Values*< 20 ng/mL Agmollmus78-22 ng/mL Insufficient> 30 ng/mL Sufficient*Sarah MENDEZ. N Engl J Med. 2007;[id number]:266-280Care must be taken in interpreting Vitamin D results fromdifferent laboratories and methodologies. Published datademonstrated that results from patients undergoinghemodialysis may show a negative bias when tested withvarious automated 25-OH vitamin D assays when compared toLC-MS/MS.When testing samples from patients whose predominant form ofVitamin D is Vitamin D2, such as patients receiving VitaminD2 supplementation, results that are subtherapeutic shouldbe confirmed with another method such as LC-MS/MS. Blood Venous blood specimen / Unknown 04/14/2024 12:38 PM EST 04/14/2024 1:44 PM EST Miranda Maravilla DO LAB BLOOD ORDERABLES Final R esult [facility] [address] [place], [place] [phone] * (ABNORMAL) CBC auto differential (04/14/2024 12:38 PM EST) White Blood Count 5.0 4.8 - 10.8 X10*3/uL [facility] Red Blood Count 4.70 4.20 - 5.50 X10*6/uL [facility] Hemoglobin 12.7 12.0 - 16.0 g/dl [facility] Hematocrit 40.7 37.0 - 47.0 % [facility] Mean Corpuscular Volume 86.6 80.0 - 98.0 fL [facility] Mean Corpuscular Hemoglobin 27.0 27.0 - 33.0 pg [facility] Mean Corpuscular HGB Conc 31.2 31.0 - 35.0 g/dl [facility] Red Cell Distribution Width 17.2(H) 11.0 - 16.0 % [facility] Platelet Count 155(L) 160 - 400 X10*3/uL [facility] Mean Platelet Volume 11.1 9.4 - 12.3 fL [facility] Neutrophils Percent Auto 73.6(H) 45 - 73 % [facility] Imm Gran Pct Auto 0.4 0.0 - 0.4 % [facility] Lymphocytes Percent Auto 11.3(L) 20 - 40 % [facility] Monocytes Percent Auto 8.7 2 - 11 % [facility] Eosinophils Percent Auto 5.6(H) 0 - 4 % [facility] Basophils Percent Auto 0.4 0 - 2 % [facility] NRBC Pct Auto 0.0 0.0 - 0.2 /100WBC [facility] Neutrophils Absolute Auto 3.7 2.0 - 8.3 x10*3/uL [facility] Imm Gran Abs Auto 0.02 0.00 - 0.03 X10*3/uL [facility] Lymphocytes Absolute Auto 0.6(L) 1.2 - 4.9 X10*3/uL [facility] Monocytes Absolute Auto 0.4 0.1 - 1.2 X10*3/uL [facility] Eosinophils Absolute Auto 0.3 0.0 - 0.4 X10*3/uL [facility] Basophils Absolute Auto 0.0 0.0 - 0.2 X10*3/uL [facility] NRBC Abs Auto 0.000 0.0 - 0.012 X10*3/uL [facility] 04/14/2024 12:3 8 PM EST 04/14/2024 1:44 PM EST Generic External Data Provider LAB BLOOD ORDERAB LES Final Result Performing Organization Address [facility] Co de Phone Number [facility] [address] [place] [phone] [phone] * Cancer antigen 27.29 (04/14/2024 12:38 PM EST) CA 27.29 16 <38 U/mL [facility] Comment:This test was perfor med using the SiemensChemiluminescent method. Values obtained fromdifferent assay methods cannot be usedinterchangeably. CA 27.29 levels, regardless ofvalue, should not be interpreted as absoluteevidence of the presence or absence of disease.The CA 27.29 result may be increased on average 5- 10%,relative to results previously obtained with thismethod due to a recent calibrator adjustment made inOcber 2023 by the reagent welder journeyman. In the lowrange for this assay (<38 U/mL), this increase may begreater than 20%. Serially monitored results shouldalways be used in conjunction with other diagnosticprocedures, including clinical evaluation.THIS TEST WAS PERFORMED AT:[facility] [place] [phone] ROSE MD 04/14/2024 12:3 8 PM EST 04/14/2024 1:44 PM EST us Generic External Data Provider LAB BLOOD ORDERAB LES Final Result Performing Organization Address City/[facility]/ZIP Co de Phone Number [facility] [address] [place] [address] [phone] * Alpha-Fetoprotein, Tumor Marker (04/14/2024 12:38 PM EST) Pathologist [facility] Alpha Fetoprotein 3.1 ng/mL [facility] Comment:Reference Range: <6. 1The use of AFP as a tumor marker in females is not recommended.This test was performed using the Jessica Coulterchemiluminescent method. Values obtained fromdifferent assay methods cannot be usedinterchangeably. AFP levels, regardless ofvalue, should not be interpreted as absoluteevidence of the presence or absence of disease.THIS TEST WAS PERFORMED AT:[facility] [place] [phone] ROSE MD Blood Venous blood specimen / Unknown 04/14/2024 12:38 PM EST 04/14/2024 1:44 PM EST Miranda Maravilla DO LAB BLOOD ORDERABLES Final R esult Performing Organization Address [facility] Co de Phone Number [facility] [address] [place] [phone] [phone] * (ABNORMAL) CBC (04/14/2024 12:38 PM EST) Pathologist [facility] White Blood Count 4.9 4.8 - 10.8 X10*3/uL [facility] Red Blood Count 4.69 4.20 - 5.50 X10*6/uL [facility] Hemoglobin 12.5 12.0 - 16.0 g/dl [facility] Hematocrit 40.6 37.0 - 47.0 % [facility] Mean Corpuscular Volume 86.6 80.0 - 98.0 fL [facility] Mean Corpuscular Hemoglobin 26.7(L) 27.0 - 33.0 pg [facility] Mean Corpuscular HGB Conc 30.8(L) 31.0 - 35.0 g/dl [facility] Red Cell Distribution Width 17.2(H) 11.0 - 16.0 % [facility] Platelet Count 161 160 - 400 X10*3/uL [facility] Mean Platelet Volume 11.3 9.4 - 12.3 fL [facility] NRBC Pct Auto 0.0 0.0 - 0.2 /100WBC [facility] NRBC Abs Auto 0.000 0.0 - 0.012 X10*3/uL [facility] Blood Venous blood specimen / Unknown 04/14/2024 12:38 PM EST 04/14/2024 1:44 PM EST Miranda Maravilla LAB BLOOD ORDERABLES Final R esult Performing Organization Address City/[facility]/ZIP Co de Phone Number [facility] [address] [place] [phone] * Lipase (04/14/2024 12:38 PM EST) Lipase 31 8 - 78 U/L [facility] Blood Venous blood specimen / Unknown 04/14/2024 12:38 PM EST 04/14/2024 1:44 PM EST Miranda Maravilla LAB BLOOD ORDERABLES Final R esult Performing Organization Address City/[facility]/ZIP Co de Phone Number [facility] [address] [place] [phone] * Hemoglobin A1c (04/14/2024 12:38 PM EST) Hemoglobin A1c 5.3 <6.0 % [facility] Comment:Hemoglobin A1C Refer ence Range Adults: 4.8 - 6.0 % Non diabetic: < 6.0 % Goal: < 7.0 %Additional Action Suggested: > 8.0 %Note: Hemoglobin A1c results are invalid for patients with abnormal amounts of HbF. Blood transfusions may impact the HbA1c concentration in the patient sample. Estimated Average Glucose 105 mg/dL [facility] Comment:eAG = Estimated ave rage glucose which is %A1C expressed asaverage glucose, using the formula of the J2X-DeauuffXqmtipq Glucose study (ADAG), Diabetes Care, Vol.31,#8,2007 Blood Venous blood specimen / Unknown 04/14/2024 12:38 PM EST 04/14/2024 1:44 PM EST [facility] BLOOD ORDERABLES Final R esult Performing Organization Address [facility] Co de Phone Number [facility] [address] [place] [phone] * Amylase (04/14/2024 12:38 PM EST) Amylase 57 28 - 100 U/L [facility] Blood Venous blood specimen / Unknown 04/14/2024 12:38 PM EST 04/14/2024 1:44 PM EST [facility] BLOOD ORDERABLES Final R esult Performing Organization Address [facility] de Phone Number [facility] [address] [place] [phone] * Hepatic Function Panel (04/14/2024 12:38 PM EST) Bilirubin, Direct 0.1 0.0 - 0.5 mg/dL [facility] Blood Venous blood specimen / Unknown 04/14/2024 12:38 PM EST 04/14/2024 1:44 PM EST [facility] BLOOD ORDERABLES Final R esult Performing Organization Address [facility] de Phone Number [facility] [address] [place] [phone] * (ABNORMAL) Lipid Panel, Standard (04/14/2024 12:38 PM EST) Triglycerides 82 <150 mg/dL [facility] Comment:Desirable Triglyceri de: less than 150 mg/dLBorderline High Triglyceride 150-199 mg/dLHigh Triglyceride: 200-499 mg/dLVery High Triglyceride: greater than or equal to 5OO mg/dL Cholesterol 199 <200 mg/dL [facility] Comment:Desirable Cholestero l: less than 200 mg/dLBorderline High Cholesterol: 200-239 mg/dLHigh Cholesterol: greater than 239 mg/dL LDL Cholesterol Calculated 104(H) <100 mg/dL [facility] Comment:Desirable LDL: less than 100 mg/dLNear Optimal/Above Optimal LDL: 110- 129 mg/dLBorderline High LDL: 130-159 mg/dLHigh LDL: 160-189 mg/dLVery High LDL: greater than or equal to 190 mg/dL HDL Cholesterol 79 >40 mg/dL [facility] Comment:Desirable HDL: great er than 40 mg/dL Note: This HDL assay may give artificially low results in patients with liver disease. Blood Venous blood specimen / Unknown 04/14/2024 12:38 PM EST 04/14/2024 1:44 PM EST us Miranda Maravilla DO LAB BLOOD ORDERABLES Final R esult [facility] [address] [place] [phone] * (ABNORMAL) Comprehensive Metabolic Panel (04/14/2024 12:38 PM EST) Sodium 142 135 - 145 mmol/L [facility] Potassium 4.0 3.3 - 5.1 mmol/L [facility] Chloride 105 96 - 108 mmol/L [facility] Carbon Dioxide 31(H) 22 - 29 mmol/L [facility] Anion Gap 10(L) 12 - 20 [facility] Urea Nitrogen (BUN) 11 9 - 16 mg/dL [facility] Creatinine, Serum 0.63 0.5 - 1.4 mg/dL [facility] Estimated Glomerular Filt Rate >60 [facility] Comment:Chronic Kidney Disea se: Estimated GFR < 60 mL/min/1.37p6Fssgtk Kidney Disease: Estimated GFR < 15 mL/min/1.73m2 Glucose 119(H) 60 - 115 mg/dL [facility] Calcium 9.5 8.4 - 10.2 mg/dL [facility] Bilirubin, Total 0.4 0.0 - 1.0 mg/dL [facility] Aspartate Amino Transferase 23 5 - 31 U/L [facility] Alanine Aminotransferase 23 0 - 31 U/L [facility] Total Protein 7.2 6.5 - 8.0 g/dL [facility] Albumin Level 3.8 3.5 - 5.0 g/dL [facility] Alkaline Phosphatase 85 39 - 117 U/L [facility] 04/14/2024 12:3 8 PM EST 04/14/2024 1:44 PM EST us Generic External Data Provider LAB BLOOD ORDERAB LES Final Result [facility] [address] [place] [phone] * PET/CT Bone Skull Base to Mid Thigh (02/12/2024 11:30 AM EST) Anatomical Region Laterality Modality Body Computed Tomogra phy 02/12/2024 11:3 0 AM EST Narrative 02/20/2024 2:08 PM EST ? [facility] ?[address] ?[place] [address] ? PET Report ? Signed ? Patient: Rickey,Brandon Y ?MR#: [id number] ? : 1975 ?Acct:[id number] ? Age/Sex: 49 / F ?ADM Date: 11/05/24 ? Loc: HO.PET ? Attending Dr: Christiana Romero MD ? Ordering Physician: Christiana Romero MD ?? Date of Service: 02/12/24 ?? Procedure(s): PET CT fusion skull to thigh ?? Accession Number(s): [id number] ? cc: Miranda Maravilla DO; Christiana Romero MD ? EXAMINATION: ?? FLUORINE-18 FDG PET/CT SCAN ? CLINICAL INFORMATION: ?? Subsequent treatment management. [Breast cancer with positive nodes. ?? Status post neoadjuvant chemotherapy and surgery. For restaging. ? TECHNIQUE: ?? 69 minutes following the intravenous administration of 13.9 mCi of ?? fluorine 18 FDG, images from the base of skull to mid-thigh were ?? obtained using a combined PET/CT scanner with CT scan based attenuation ?? correction. No intravenous contrast was administered. Transverse, ?? coronal, sagittal, and volume reconstruction projections were obtained. ?? The patient's blood glucose as determined by a finger stick, was 84 ?? mg/dL immediately prior to injection. ? The radiotracer was injected intravenously through a right antecubital ?? superficial vein, without any complications. ? Total CT exam dose-length product 1219.31 mGy-cm. ? * These CT images were obtained using dose optimization techniques as ?? appropriate, variously including the following: Automated exposure ?? control ?? * Adjustment of mA and/or kV according to patient size (this includes ?? techniques or standardized protocols for targeted exams where dose is ?? matched to indication/reason for exam; i.e. extremities or head) ?? * Use of iterative reconstruction technique ? COMPARISON: ?? Most recent prior PET CT scan done on 06/19/2023. ? FINDINGS: ? SUV MAX REFERENCE: ?? Blood: 5.1 (2.8-prior). ?? Liver: 5.5 (4.5-prior). ? HEAD AND NECK: No abnormal radiotracer uptake. ? No large intracranial hemorrhage, acute territorial infarct or ?? significant shift of midline structures. ? CHEST: ?? Ports and Devices: Right-sided Port-A-Cath is present with its tip seen ?? at the cavoatrial junction. ? Lungs: No abnormal radiotracer uptake. ? Pleura: No significant pleural effusion. ? Lymph Nodes: Previously documented solitary intense hypermetabolic left ?? axillary pathologically enlarged abnormal lymph node is no longer ?? reproduced, presumably surgically absent. There are no new ?? hypermetabolic axillary or internal mammary, mediastinal or hilar ?? lymphadenopathy. ? Mediastinum: There is no significant pericardial effusion/thickening. ? Breasts/Chest Wall: Interval development of significant abnormal ?? hypermetabolic skin thickening (SUV max of 4.7-154/267) and an ?? ellipsoidal focal hypodense fluid collection is identified associated ?? with few surgical abebe behind the central part of the left breast, ?? likely represent interval postsurgical change. Alternatively, may also ?? represent interval disease progression. Please correlate clinically. ? The right breast and the right axilla remain unremarkable. ? ABDOMEN/PELVIS: ?? Liver/Biliary System: No focal tracer avid liver lesion. Large ?? calcified gallstone is present. No evidence of biliary obstruction. ? Pancreas: Normal.No evidence of focal hypermetabolic pancreatic lesion ?? or ductal dilatation. ? Spleen: No abnormal radiotracer uptake. No evidence of splenomegaly. ? Adrenal Glands: No abnormal radiotracer uptake. ? Kidneys: No hydronephrosis, hydroureter or renal calculi bilaterally. ? Bowel: There is no significant bowel dilatation to suggest obstruction. ?? Moderate size hiatal hernia, similar to prior study. ? Lymph Nodes: No tracer avid retroperitoneal, mesenteric or pelvic ?? and/or groin lymphadenopathy. Slight asymmetric increased tracer ?? activity at the right groin is without any definite CT correlate, may ?? represent nonspecific inflammatory changes with SUV max of 4.2 (65/267). ? Pelvic Organs: The urinary bladder is underdistended. ? MUSCULOSKELETAL: Postsurgical changes of protocol lumbar spine fusion ?? and underlying stable extensive S-shaped scoliosis is seen. No evidence ?? of any focal tracer avid hypermetabolism, unchanged. ? VASCULAR: No significant calcific atherosclerotic disease of the aorta ?? and is branches. ? THE SITE(S) OF MOST INTENSE FDG AVIDITY AND SUV MAX: Nonspecific ?? diffuse hypermetabolic skin thickening of the left breast with SUV max ?? of 4.7. ? PET/PET CT fusion skull to thigh ?? IMPRESSION: ?? * ??Compared to most recent prior PET CT scan done on 06/19/2023: ?? * ??Interval development of significant abnormal hypermetabolic skin ?? thickening of the left breast (SUV max of 4.7) and an ellipsoidal focal ?? hypodense fluid collection is identified associated with few surgical ?? abebe behind the central part of the left breast, likely represent ?? interval postsurgical change. Alternatively, may also represent ?? interval disease progression. Please correlate clinically. ?? * ??Previously documented solitary intense hypermetabolic left axillary ?? pathologically enlarged abnormal lymph node is no longer reproduced, ?? presumably surgically absent. ?? * ??No evidence of any new hypermetabolic axillary or internal mammary, ?? mediastinal or hilar lymphadenopathy or distant metastatic disease. ?? * ??Slight asymmetric increased tracer activity at the right groin is ?? without any definite CT correlate, may represent nonspecific ?? inflammatory changes with SUV max of 4.2. ?? * ??Stable moderate size hiatal hernia and cholelithiasis. ? Electronically signed by: ??Debbi Velasquez MD ??02/20/2024 02:05 PM EST ? Dictated By: ?Debbi Velasquez MD ? Signed By: ?<Electronically signed by Debbi Velasquez MD in OV> ? 02/20/24 1405 ? DD/ 1130 ? TD/TT: 02/12/24 1315 ? 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 Procedure Note Blair, Mini - 02/20/2024 [place] [address] PET Report Signed Patient: Brandon Lang YMR#: [id number] : 1975Acct:[id number] Age/Sex: 49 / FADM Date: 02/12/24 Loc: HO.PET Attending Dr: Christiana Romero MD Ordering Physician: Christiana Romero MD Date of Service: 02/12/24 Procedure(s): PET CT fusion skull to thigh Accession Number(s): [id number] cc: Miranda Maravilla DO; Christiana Romero MD EXAMINATION: FLUORINE-18 FDG PET/CT SCAN CLINICAL INFORMATION: Subsequent treatment management. [Breast cancer with positive nodes. Status post neoadjuvant chemotherapy and surgery. For restaging. TECHNIQUE: 69 minutes following the intravenous administration of 13.9 mCi of fluorine 18 FDG, images from the base of skull to mid-thigh were obtained using a combined PET/CT scanner with CT scan based attenuation correction. No intravenous contrast was administered. Transverse, coronal, sagittal, and volume reconstruction projections were obtained. The patient's blood glucose as determined by a finger stick, was 84 mg/dL immediately prior to injection. The radiotracer was injected intravenously through a right antecubital superficial vein, without any complications. Total CT exam dose-length product 1219.31 mGy-cm. * These CT images were obtained using dose optimization techniques as appropriate, variously including the following: Automated exposure control * Adjustment of mA and/or kV according to patient size (this includes techniques or standardized protocols for targeted exams where dose is matched to indication/reason for exam; i.e. extremities or head) * Use of iterative reconstruction technique COMPARISON: Most recent prior PET CT scan done on 06/19/2023. FINDINGS: SUV MAX REFERENCE: Blood: 5.1 (2.8-prior). Liver: 5.5 (4.5-prior). HEAD AND NECK: No abnormal radiotracer uptake. No large intracranial hemorrhage, acute territorial infarct or significant shift of midline structures. CHEST: Ports and Devices: Right-sided Port-A-Cath is present with its tip seen at the cavoatrial junction. Lungs: No abnormal radiotracer uptake. Pleura: No significant pleural effusion. Lymph Nodes: Previously documented solitary intense hypermetabolic left axillary pathologically enlarged abnormal lymph node is no longer reproduced, presumably surgically absent. There are no new hypermetabolic axillary or internal mammary, mediastinal or hilar lymphadenopathy. Mediastinum: There is no significant pericardial effusion/thickening. Breasts/Chest Wall: Interval development of significant abnormal hypermetabolic skin thickening (SUV max of 4.7-154/267) and an ellipsoidal focal hypodense fluid collection is identified associated with few surgical abebe behind the central part of the left breast, likely represent interval postsurgical change. Alternatively, may also represent interval disease progression. Please correlate clinically. The right breast and the right axilla remain unremarkable. ABDOMEN/PELVIS: Liver/Biliary System: No focal tracer avid liver lesion. Large calcified gallstone is present. No evidence of biliary obstruction. Pancreas: Normal.No evidence of focal hypermetabolic pancreatic lesion or ductal dilatation. Spleen: No abnormal radiotracer uptake. No evidence of splenomegaly. Adrenal Glands: No abnormal radiotracer uptake. Kidneys: No hydronephrosis, hydroureter or renal calculi bilaterally. Bowel: There is no significant bowel dilatation to suggest obstruction. Moderate size hiatal hernia, similar to prior study. Lymph Nodes: No tracer avid retroperitoneal, mesenteric or pelvic and/or groin lymphadenopathy. Slight asymmetric increased tracer activity at the right groin is without any definite CT correlate, may represent nonspecific inflammatory changes with SUV max of 4.2 (65/267). Pelvic Organs: The urinary bladder is underdistended. MUSCULOSKELETAL: Postsurgical changes of protocol lumbar spine fusion and underlying stable extensive S-shaped scoliosis is seen. No evidence of any focal tracer avid hypermetabolism, unchanged. VASCULAR: No significant calcific atherosclerotic disease of the aorta and is branches. THE SITE(S) OF MOST INTENSE FDG AVIDITY AND SUV MAX: Nonspecific diffuse hypermetabolic skin thickening of the left breast with SUV max of 4.7. PET/PET CT fusion skull to thigh IMPRESSION: * Compared to most recent prior PET CT scan done on 06/19/2023: * Interval development of significant abnormal hypermetabolic skin thickening of the left breast (SUV max of 4.7) and an ellipsoidal focal hypodense fluid collection is identified associated with few surgical abebe behind the central part of the left breast, likely represent interval postsurgical change. Alternatively, may also represent interval disease progression. Please correlate clinically. * Previously documented solitary intense hypermetabolic left axillary pathologically enlarged abnormal lymph node is no longer reproduced, presumably surgically absent. * No evidence of any new hypermetabolic axillary or internal mammary, mediastinal or hilar lymphadenopathy or distant metastatic disease. * Slight asymmetric increased tracer activity at the right groin is without any definite CT correlate, may represent nonspecific inflammatory changes with SUV max of 4.2. * Stable moderate size hiatal hernia and cholelithiasis. Electronically signed by: Debbi Velasquez MD 02/20/2024 02:05 PM [facility] Dictated By: Debbi Velasquez MD Signed By: <Electronically signed by Debbi Velasquez MD in OV> 02/20/24 1405 DD/ 1130 TD/TT: 02/12/24 1315 Asphalt Heater Operator: CLAUDE [facility] External Provider IMG CT PROCEDURES Final Result * (ABNORMAL) Cologuard?? colon cancer screening (03/04/2023 11:20 PM EST) Cologuard Result Positive( A) Negative 03/12/2023 10:35 AM EST [facility] (CLIA #:[id number]) Comment: POSITIVE TEST RESULT. A positive Cologuard result should be followed with a colonoscopy or visual examination of the colon. The normal value (reference range) for this assay is negative. TEST DESCRIPTION: Composite algorithmic analysis of stool DNA-biomarkers with hemoglobin immunoassay. ?? Quantitative values of individual biomarkers are not reportable and are not associated with individual biomarker result reference ranges. Cologuard is intended for colorectal cancer screening of adults of either sex, 45 years or older, who are at average-risk for colorectal cancer (CRC). Cologuard has been approved for use by the U.S. FDA. The performance of Cologuard was established in a cross sectional study of average-risk adults aged 50-84. Cologuard performance in patients ages 45 to 49 years was estimated by sub-group analysis of near-age groups. Colonoscopies performed for a positive result may find as the most clinically significant lesion: colorectal cancer [4.0%], advanced adenoma (including sessile serrated polyps greater than or equal to 1cm diameter) [20%] or non- advanced adenoma [31%]; or no colorectal neoplasia [45%]. These estimates are derived from a prospective cross-sectional screening study of 10,000 individuals at average risk for colorectal cancer who were screened with both Cologuard and colonoscopy. (Elliot Dye al, N Engl J Med 2014;370(14):8734-9498.) Cologuard may produce a false negative or false positive result (no colorectal cancer or precancerous polyp present at colonoscopy follow up). A negative Cologuard test result does not guarantee the absence of CRC or advanced adenoma (pre-cancer). The current Cologuard screening interval is every 3 years. ([place] [employer] and U.S. Multi-Society Task Force). Cologuard performance data in a 10,000 patient pivotal study using colonoscopy as the reference method can be accessed at the following location: www.Via/results. Additional description of the Cologuard test process, warnings and precautions can be found at www.Fiberspar.Bespoke Post. Stool specimen (specimen) 03/04/2023 11:20 PM EST 03/06/2023 5:06 PM EST Miranda Maravilla DO LAB MOLECULAR DIAGNOSTICS OR DERABLES Final Result [facility] (CLIA #:[id number]) [place] [address], * HEPATITIS C AB W/REFL TO HCV RNA, QN, PCR (10/24/2019 9:16 AM EDT) HEPATITIS C ANTIBODY NON-REACT QUIANA NON-REACT QUIANA [facility] INDEX 0.02 <1.00 [facility] Comment: ?? HCV antibody was non-reactive. There is no laboratory ?? evidence of HCV infection. ?? In most cases, no further action is required. However, if recent HCV exposure is suspected, a test for HCV RNA (test code 75638) is suggested. ?? For additional information please refer to http://Rockerbox.[employer]/faq/UOR63m7 (This link is being provided for informational/ educational purposes only.) ?? HEPATITIS C ANTIBODY NON-REACT [facility]NA NON-REACT [facility] INDEX 0.02 <1.00 [facility] Comment: ?? HCV antibody was non-reactive. There is no laboratory ?? evidence of HCV infection. ?? In most cases, no further action is required. However, if recent HCV exposure is suspected, a test for HCV RNA (test code 11340) is suggested. ?? For additional information please refer to http://Rockerbox.[employer]/faq/GHD50g3 (This link is being provided for informational/ educational purposes only.) ?? HEPATITIS C ANTIBODY NON-REACT QUIANA NON-REACT QUIANA [facility] INDEX 0.02 <1.00 [facility] Comment: ?? HCV antibody was non-reactive. There is no laboratory ?? evidence of HCV infection. ?? In most cases, no further action is required. However, if recent HCV exposure is suspected, a test for HCV RNA (test code 32013) is suggested. ?? For additional information please refer to http://Rockerbox.[employer]/faq/UDI97m2 (This link is being provided for informational/ educational purposes only.) ?? 10/24/2019 9:16 AM EDT Miradna Maravilla DO HISTORICAL/NON ORDERABLE LAB S Final Result [facility] [address] [place] [address], * HIV 1/2 ANTIGEN/ANTIBODY,FOURTH GENERATION W/RFL (10/24/2019 9:16 AM EDT) HIV-1/2 ANTIGEN AND ANTIBODIES, 4TH GENERATION W/ REFLEX NON-REACT QUIANA NON-REACT [facility] Comment: HIV-1 antigen and HIV-1/HIV-2 antibodies were not detected. There is no laboratory evidence of HIV infection. ?? PLEASE NOTE: This information has been disclosed to you from records whose confidentiality may be protected by state law. ??If your state requires such protection, then the state law prohibits you from making any further disclosure of the information without the specific written consent of the person to whom it pertains, or as otherwise permitted by law. A general authorization for the release of medical or other information is NOT sufficient for this purpose. ? For additional information please refer to http://Rockerbox.[employer]/faq/HOW537 (This link is being provided for informational/ educational purposes only.) ? The performance of this assay has not been clinically validated in patients less than 2 years old. ?? HIV-1/2 ANTIGEN AND ANTIBODIES, 4TH GENERATION W/ REFLEX NON-REACT QUIANA NON-REACT QUIANA [facility] Comment: HIV-1 antigen and HIV-1/HIV-2 antibodies were not detected. There is no laboratory evidence of HIV infection. ?? PLEASE NOTE: This information has been disclosed to you from records whose confidentiality may be protected by state law. ??If your state requires such protection, then the state law prohibits you from making any further disclosure of the information without the specific written consent of the person to whom it pertains, or as otherwise permitted by law. A general authorization for the release of medical or other information is NOT sufficient for this purpose. ? For additional information please refer to http://Unicotrip/faq/TWC602 (This link is being provided for informational/ educational purposes only.) ? The performance of this assay has not been clinically validated in patients less than 2 years old. ?? HIV-1/2 ANTIGEN AND ANTIBODIES, 4TH GENERATION W/ REFLEX NON-REACT QUIANA NON-REACT QUIANA [facility] Comment: HIV-1 antigen and HIV-1/HIV-2 antibodies were not detected. There is no laboratory evidence of HIV infection. ?? PLEASE NOTE: This information has been disclosed to you from records whose confidentiality may be protected by state law. ??If your state requires such protection, then the state law prohibits you from making any further disclosure of the information without the specific written consent of the person to whom it pertains, or as otherwise permitted by law. A general authorization for the release of medical or other information is NOT sufficient for this purpose. ? For additional information please refer to [email or web address] [email or web address]/[email or web address] (This link is being provided for informational/ educational purposes only.) ? The performance of this assay has not been clinically validated in patients less than 2 years old. ?? 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
--- OUTSIDE RECORDS SUMMARY | 2024-04-30 13:02 | XMS_ITS | Encounter Summary ---
Author Organization [employer] Address [address] [facility] [address] [place] [address] Care Team Providers Care Reception Name Role Phone Miranda Maravilla DO Primary Care Provider + [phone] Reason for Visit * Reason Comments Cough Encounter Details Date Type Department Care Team ([facility] st Contact Info) Description 04/29/2024 6:20 PM EST Office Visit [facility] [address] [place], [place] [phone] Oliver Bates MD [address] [place], [place] [id number] Viral URI Social History Tobacco Use Types Packs/Day Years [...] Orientation Bisexual 2022 10 :14 AM EDT documented as of this encounter Last Filed Vital Signs Vital Sign Reading [...] Mass Index 41.52 04/29/2024 5:10 PM EST documented in this encounter Progress Notes * Oliver aBtes MD - 04/29/2024 6:20 PM EST Subjective History was provided by the mother and patient. Brandon Lang is a 49 y.o. female with intellectual disability who presents for evaluation of symptoms of a URI. Symptoms include cough, myalgia, runny nose, and congestion. Onset of symptoms was 2 weeks ago, unchanged since that time. Associated negative symptoms include fever, chills, nausea, vomiting, diarrhea, ear pain, and sinus pain. Evaluation to date: none. Treatment to date: Recnetly seenon 04/22/2024. Treated with Prednisone 40mg dialy for 5 days and Azithromycin 5-day course for asthma exacerbation and right basilar rales. States no significant improvement of her symptoms despite the treatments. Objective Vitals: 04/29/24 1710 BP: 107/72 BP Location: Left arm Patient Position: Sitting BP Cuff Size: Large adult Pulse: 97 Resp: 16 Temp: 97.4 ??F (36.3 ??C) TempSrc: Temporal SpO2: 97% Weight: 227 lb (103 kg) Height: 5' 2 (1.575 m) Physical Exam Vitals reviewed. Constitutional: Appearance: Normal appearance. She is normal weight. HENT: Head: Normocephalic and atraumatic. Right Ear: Tympanic membrane, ear canal and external ear normal. Left Ear: Tympanic membrane, ear canal and external ear normal. Nose: Nose normal. No congestion or rhinorrhea. Mouth/Throat: Mouth: Mucous membranes are dry. Pharynx: Oropharynx is clear. Posterior oropharyngeal erythema present. No oropharyngeal exudate. Eyes: Extraocular Movements: Extraocular movements intact. Conjunctiva/sclera: Conjunctivae normal. Pupils: Pupils are equal, round, and reactive to light. Cardiovascular: Rate and Rhythm: Normal rate and regular rhythm. Heart sounds: Normal heart sounds. Pulmonary: Effort: Pulmonary effort is normal. Breath sounds: Normal breath sounds. Musculoskeletal: General: Normal range of motion. Cervical back: Normal range of motion and neck supple. Lymphadenopathy: Cervical: No cervical adenopathy. Skin: General: Skin is warm and dry. Neurological: General: No focal deficit present. Mental Status: She is alert and oriented to person, place, and time. Mental status is at baseline. Psychiatric: Mood and Affect: Mood normal. Behavior: Behavior normal. Thought Content: Thought content normal. Judgment: Judgment normal. No visits with results within 2 Day(s) from this visit. Latest known visit with results is: Office Visit on 04/22/2024 Component Date Value Ref Range Status Rapid COVID Ag 04/22/2024 Negative Final Influenza A 04/22/2024 Negative Negative, Indeterminate Final Influenza B 04/22/2024 Negative Negative, Indeterminate Final Brandon was seen today for cough. Diagnoses and all orders for this visit: Viral URI - POCT Rapid Covid-19 BinaxNOW - POCT Rapid Influenza A ONTIVEROS ID NOW - POCT Rapid Influenza B ONTIVEROS ID NOW - Respiratory Viral Panel PCR; Future - XR Chest 2 Views; Future Patient with a clinical presentation of viral URI Normal pulmonary exam and no respiratory distress O2 sat reassuring Rapid COVID-19 & Influenza A/B negative Was recently treated with Prednisone and Azithromycin (04/22/2024) Symptom onset 2 weeks ago Mother with similar symptoms Given duration of her symptoms, will check CXR and Respiratory Panel Discussed supportive care with ample hydration, sleep position and rest OTC supportive medications reviewed Droplet precautions discussed Advised to contact the clinic if no improvement of symptoms Indications for UC/ER use reviewed documented in this encounter Plan of Treatment Scheduled Orders Name Type Priority Associated Diagnoses Orde r Schedule Respiratory Viral Panel PCR Lab Routine Viral URI Expected: 04/29/2024 (Approximate), Expires: 04/29/2025 XR Chest 2 Views Imaging Routine Viral URI Expected: 04/29/2024, Expires: 04/29/2025 documented as of this encounter Procedures Procedure Name Priority Date/Time Associated Diagnosis Comments POCT INFLUENZA B (ID NOW RAPID MOLECULAR) Routine 04/29/2024 7:14 PM EST Viral URI POCT INFLUENZA A (ID NOW RAPID MOLECULAR) Routine 04/29/2024 7:14 PM EST Viral URI POCT RAPID COVID ANTIGEN Routine 04/29/2024 7:14 PM EST Viral URI documented in this encounter Results * POCT Rapid Influenza B ONTIVEROS ID NOW (04/29/2024 7:14 PM EST) Influenza B Negative Negative, Indeterminate [facility] QC Media Lot # [id number] [facility] Lot# Expiration Date [phone] [facility] Swab 04/29/2024 7:14 PM EST us Oliver Bates MD POINT OF CARE TEST ENTER/EDIT OR DERABLES Final Result [facility] [address] [place] [phone] * POCT Rapid Influenza A ONTIVEROS ID NOW (04/29/2024 7:14 PM EST) Influenza A Negative Negative, Indeterminate [facility] QC Media Lot # [id number] [facility] Lot# Expiration Date [facility] Swab 04/29/2024 7:14 PM EST us Oliver Bates MD POINT OF CARE TEST ENTER/EDIT OR DERABLES Final Result [facility] [address] [place] [address] [phone] * POCT Rapid Covid-19 BinaxNOW (04/29/2024 7:14 PM EST) Rapid COVID Ag Negative QC Media Lot # [id number] Lot# Expiration Date Swab 04/29/2024 7:14 PM EST us Oliver Bates MD POINT OF CARE TEST ENTER/EDIT OR DERABLES Final Result documented in this encounter Visit Diagnoses Diagnosis Viral URI Acute upper respiratory infections of unspecified site documented in this encounter Additional Health Concerns Assessment Noted Time PHQ-9 Depression Total Score: 7 08/20/19 24 10:35 AM EDT documented as of this encounter Care Teams Reception Relationship Specialty Start Date End Date Miranda Maravilla DO [address] [place] [id number] PCP - General Family Medicine 09/26/19 documented as of this encounter
--- OUTSIDE RECORDS SUMMARY | 2024-04-30 13:03 | XMS_ITS | Encounter Summary ---
Author Organization [employer] Address [address] [facility] [address] [place] [address] Care Team Providers Care Gas Check Pad Maker Name Role Phone Miranda Maravilla DO Primary Care Provider + [phone] Encounter Details Date Type Department Care Team (Latest Contact Info) Description 04/18/2024 3:00 PM EST Office Visit [facility] [address] [place], [place] [phone] Eusebia Valdez MD [address] [place] [address] Onychodystrophy (Primary Dx) Social History Tobacco Use Types Packs/Day Years Used Date Smoking Tobacco: Never Passive Smoke Exposure: Never Smokeless Tobacco: Never Alcohol Use Standard Drinks/Week Comments Never 0 [...] Sign Reading Time Taken Comments Blood Pressure 132/80 04/18/2024 2:48 PM EST Pulse 84 04/18/2024 2:48 PM EST Temperature 36.6 ??C (97.8 ??F) 04/18/2024 2:48 PM ES T Respiratory Rate 20 04/18/2024 2:48 PM EST Oxygen Saturation - - Inhaled Oxygen Concentration - - Weight 101 kg (222 lb 8 oz) 04/18/2024 2:[address] Height - - Body Mass Index 40.7 04/14/2024 11:55 AM EST documented in this encounter Progress Notes * Eusebia Valdez MD - 04/18/2024 3:00 PM EST Subjective Patient ID: Brandon Lang is a 49 y.o. female who presents for No chief complaint on file.. HPI 49 yr old woman with thickened toe nails since she started chemotherapy for breast cancer 9 months ago. She finished Chemotherapy and now on radiation therapy Review of Systems Constitutional: Negative for diaphoresis, fatigue and fever. HENT: Negative for ear discharge, ear pain, facial swelling and hearing loss. Respiratory: Negative for cough, choking, chest tightness and shortness of breath. Cardiovascular: Negative for chest pain and leg swelling. Gastrointestinal: Negative for abdominal distention, abdominal pain and anal bleeding. Endocrine: Negative for cold intolerance and heat intolerance. Genitourinary: Negative for enuresis, flank pain and frequency. Musculoskeletal: Negative for arthralgias, back pain and gait problem. Neurological: Negative for dizziness, facial asymmetry and headaches. Psychiatric/Behavioral: Negative for agitation, behavioral problems and confusion. Objective Physical Exam Constitutional: Appearance: Normal appearance. HENT: Head: Normocephalic and atraumatic. Nose: Nose normal. Eyes: Pupils: Pupils are equal, round, and reactive to light. Pulmonary: Effort: Pulmonary effort is normal. Musculoskeletal: General: Normal range of motion. Cervical back: Normal range of motion. Skin: Comments: All toe nails with subungal scales and yellowish thickening. Neurological: General: No focal deficit present. Mental Status: She is alert. Assessment/Plan Diagnoses and all orders for this visit: Onychodystrophy Months hx of toe nails thickening, s/p chemoradiation for breast cancer Suspecting onychomycosis Specimen sent for PAS stain. documented in this encounter Plan of Treatment Not on file documented as of this encounter Visit Diagnoses Diagnosis Onychodystrophy- Primary Other specified disease of nail documented in this encounter Additional Health Concerns Assessment Noted Time PHQ-9 Depression Total Score: 7 08/20/19 24 10:35 AM EDT documented as of this encounter Care Teams Gas Check Pad Maker Relationship Specialty Start Date End Date Miranda Maravilla DO [address] [place] [id number] PCP - General Family Medicine 09/26/19 documented as of this encounter
--- OUTSIDE RECORDS SUMMARY | 2024-04-30 13:03 | XMS_ITS | Encounter Summary ---
Author Organization [employer] Address [address] [facility] [address] [place] [address] Care Team Providers Care Senior Mortgage Underwriter Name Role Phone Miranda Maravilla DO Primary Care Provider + [phone] Encounter Details Date Type Department Care Team (Latest Contact Info) Description 04/18/2024 Travel Social History Tobacco Use Types Packs/Day Years [...] AM EDT documented as of this encounter Plan of Treatment Not on file documented as of this encounter Visit Diagnoses Not on filedocumented in this encounter Additional Health Concerns Assessment Noted Time PHQ-9 Depression Total Score: 7 08/20/19 24 10:35 AM EDT documented as of this encounter Care Teams Senior Mortgage Underwriter Relationship Specialty Start Date End Date Miranda Maravilla DO [address] [place] [phone] PCP - General Family Medicine 09/26/19 documented as of this encounter
--- OUTSIDE RECORDS SUMMARY | 2024-04-30 13:03 | XMS_ITS | Encounter Summary ---
Author Organization [employer] Address [address] [facility] [address] [place] [address] Care Team Providers Care Commercial Attorney Name Role Phone Miranda Maravilla DO Primary Care Provider [phone] Reason for Referral * Consultation (Urgent) - Authorized Specialty Diagnoses / Procedures Referred By Kuldeep johnson Referred To Contact General Surgery Diagnoses Epigastric pain Miranda Maravilla DO [address] [place], [place] Phone: tel: fax: Jarrett Van MD [address] [place] [address] Phone: tel: fax: Referral ID Status Reason Start Date Expiration Date Visits Requested Visits Authorized [id number] Authorized Specialty Services Required 04/14/2024 04/14/2025 1 1 * Imaging (Routine) - Authorized Specialty Diagnoses / Procedures Referred By Kuldeep johnson Referred To Contact Radiology Diagnoses Epigastric pain Procedures US Abdomen Complete Miranda Maravilla DO [address] [place], [place] Phone: tel: fax: [facility] [address] [place] [address] Phone: tel: fax: Referral ID Status Reason Start Date Expiration Date V isits Requested Visits Authorized [id number] Authorized 04/14/2024 04/14/2025 1 1 Encounter Details Date Type Department Care Team (Late st Contact Info) Description 04/14/2024 12:00 PM EST Office Visit [facility] [address] [place], [place] [phone] Miranda Maravilla DO [address] [place] [address] Epigastric pain (Primary Dx); Fatty liver; Abnormal finding of blood chemistry, unspecified; Body mass index (BMI) 40.0-44.9, adult (CMS/HCC); Mixed hyperlipidemia; Encounter for immunization Social History Tobacco Use Types Packs/Day Years [...] Sign Reading Time Taken Comments Blood Pressure 100/60 04/14/2024 11:55 AM EST Pulse 84 04/14/2024 11:55 AM EST Temperature 36.2 ??C (97.1 ??F) 04/14/2024 11:[address] Respiratory Rate 18 04/14/2024 11:55 AM EST Oxygen Saturation - - Inhaled Oxygen Concentration - - Weight 102 kg (225 lb) 04/14/2024 11:55 AM EST Height 157.5 cm (5' 2 ) 04/14/2024 11:55 AM EST Body Mass Index 41.15 04/14/2024 11:55 AM EST documented in this encounter Progress Notes * Miranda Maravilla, DO - 04/14/2024 12:00 PM EST SUBJECTIVE Brandon Lang is a 49 y.o. female who presents for Sick Visit. She presents with Mom. She comes in with mom c/o abd pain. She says that she gets a cramping pain in her RUQ area and epigastric area. She feels that the pain is worse after eating but mom doesn't feel that it's food related. Mom says that the pain comes and goes and not every day. Mom gives her tylenol when she c/o painwhich helps to relieve her sx. She denies any N/V. She doesn't feel any heartburn. She denies any gassiness or bloating. No diarrhea or constipation. She has not had any fevers. She recently completed radiation therapy for her breast cancer. She last saw Dr Romero in February and waiting for call for next appt. She has appt with Dr Van and RAD [facility] next week. She is awaiting a call from GI re: colonoscopy eval. Mom doesn't feel that she can drink the gallonprep. Review of Systems Constitutional: Negative for activity change, appetite change, chills, fever and unexpected weight change. Respiratory: Negative for cough and shortness of breath. Cardiovascular: Negative for chest pain, palpitations and leg swelling. Gastrointestinal: Positive for abdominal pain. Negative for blood in stool, constipation, diarrhea,nausea and vomiting. Abdominal distention: gassiness. Neurological: Negative for weakness and headaches. Patient Active Problem List Diagnosis Allergic rhinitis Cholelithiasis Chronic gastroesophageal reflux disease Intermittent explosive disorder Moderate intellectual disability Moderate persistent asthma BMI 40.0-44.9, adult (CMS/HCC) GEORGE (obstructive sleep apnea) Oropharyngeal dysphagia Scoliosis Obesity hypoventilation syndrome (CMS/HCC) Depressive disorder Chronic constipation History of COVID-19 Pulmonary hypertension (CMS/HCC) Supplemental oxygen dependent Fatty liver Swelling of both lower extremities Healthcare maintenance Cancer of left breast, stage 3 (CMS/HCC) Tinea pedis of both feet No Known Allergies OBJECTIVE Visit Vitals BP 100/60 (BP Location: Right arm, Patient Position: Sitting, BP Cuff Size: Adult) Pulse 84 Temp 97.1 ??F (36.2 ??C) (Oral) Resp 18 Ht 5' 2 (1.575 m) Wt 225 lb (102 kg) BMI 41.15 kg/m?? Smoking Status Never BSA 2.11 m?? Physical Exam Constitutional: General: She is not in acute distress. Appearance: Normal appearance. She is obese. Cardiovascular: Rate and Rhythm: Normal rate and regular rhythm. Heart sounds: Normal heart sounds. No murmur heard. Pulmonary: Effort: Pulmonary effort is normal. Breath sounds: Normal breath sounds. No wheezing or rhonchi. Abdominal: General: Abdomen is protuberant. Bowel sounds are normal. There is no distension. Palpations: Abdomen is soft. There is no mass. Tenderness: There is abdominal tenderness in the right upper quadrant and epigastric area. Neurological: General: No focal deficit present. Mental Status: She is alert and oriented to person, place, and time. Cranial Nerves: No cranial nerve deficit. Motor: No weakness. Gait: Gait normal. Psychiatric: Mood and Affect: Mood normal. Assessment/Plan Diagnoses and all orders for this visit: Epigastric pain Intermittent RUQ/epigastric pain, ? worse after meals, possible biliary colic -check basic labs with amylase and lipase -abd US with multiple, mobile gallstones AUGUST 2023->referred for repeat -trial omeprazole daily -referred to for eval -advised rtc or go to ED if sx change or worsen Fatty liver -abd US with HMG and echogenic liver AUGUST 2023->referred for repeat as above -AFP and LFTs nml JAN 2023->repeat today --Follow-up with me in 3 mos or sooner prn-- Current Outpatient Medications: acetaminophen (Tylenol 8 Hour) 650 MG ER tablet, TAKE 1 TABLET BY MOUTH EVERY 6 HOURS NEEDED FORMILD PAIN, Disp: 60 tablet, Rfl: 1 albuterol (2.5 MG/3ML) 0.083% nebulizer solution, INHALE 1 AMPULE USING A NEBULIZER EVERY 4 HOURS NEEDED, Disp: 90 mL, Rfl: 3 albuterol (ProAir HFA) 108 (90 Base) MCG/ACT inhaler, Inhale 2 puffs every 4 (four) hours if neededfor shortness of breath or wheezing., Disp: 18 g, Rfl: 11 ARIPiprazole (Abilify) 5 MG tablet, Take 1 tablet by mouth at bed time., Disp: , Rfl: baclofen (Lioresal) 10 MG tablet, TAKE 1/2 TO 1 TABLET BY MOUTH EVERY DAY AT BEDTIME NEEDED FOR MUSCLE SPASMS, Disp: 30 tablet, Rfl: 3 calcium carbonate (Calcium Antacid) 500 MG chewable tablet, CHEW AND SWALLOW 2 TABLETS BY MOUTH FOUR TIMES DAILY AFTER MEALS AND AT BEDTIME NEEDED FOR HEARTBURN, Disp: 150 tablet, Rfl: 1 cetirizine (ZyrTEC) 10 MG tablet, Take 1 tablet (10 mg) by mouth Once per day., Disp: 30 tablet, Rfl: 11 Diclofenac Sodium 1 % gel, APPLY TO THE AFFECTED AREA(S) 2 GRAMS TOPICALLY TWICE DAILY IN THE MORNING AND AT BEDTIME NEEDED FOR PAIN, Disp: 100 g, Rfl: 0 docusate sodium (Colace) 100 MG capsule, TAKE 1 CAPSULE BY MOUTH TWICE DAILY NEEDED, Disp: 180 capsule, Rfl: 3 FLUoxetine (PROzac) 20 MG capsule, Take 1 capsule by mouth at bed time., Disp: , Rfl: fluticasone (Flonase) 50 MCG/ACT nasal spray, USE 2 SPRAYS IN EACH NOSTRIL EVERY DAY, Disp: 48 g, Rfl: 0 Fluticasone Furoate-Vilanterol (Breo Ellipta) 200-25 MCG/ACT aerosol powder , Inhale 1 puff Once per day., Disp: 1 each, Rfl: 11 hydrocortisone 2.5 % cream, Apply topically if needed in the morning and at bedtime (foot rash)., Disp: 28 g, Rfl: 1 ipratropium-albuterol (Duo-Neb) 0.5-2.5 mg/3 mL nebulizer solution, INHALE 1 AMPULE USING A NEBULIZER THREE TIMES DAILY, Disp: 180 mL, Rfl: 3 Ketotifen Fumarate (Alaway) 0.035 % solution, Administer 1 drop into affected eye(s) if needed in the morning and at bedtime (eye itching)., Disp: 10 mL, Rfl: 2 lamoTRIgine (LaMICtal) 100 MG tablet, take 1 tablet by oral route once daily in the morning, Disp: , Rfl: naproxen (Naprosyn) 500 MG tablet, TAKE 1 TABLET BY MOUTH TWICE DAILY WITH FOOD NEEDED FOR PAIN,Disp: 20 tablet, Rfl: 1 Petrolatum 42 % ointment, APPLY TOPICALLY TO SKIN TWICE DAILY NEEDED, Disp: 454 g, Rfl: 5 polyethylene glycol, PEG, 3350 (Glycolax) 17 GM/SCOOP powder, take (17G) by oral route every day mixed with 8 oz. water, juice, soda, coffee or tea as needed for Constipation, Disp: , Rfl: polyvinyl alcohol (Liquifilm Tears) 1.4 % ophthalmic solution, In drop in each eye twice a day prn dry eyes, Disp: , Rfl: senna (Senokot) 8.6 MG tablet, TAKE 2 TABLETS BY MOUTH AT BEDTIME NEEDED FOR CONSTIPATION, Disp:180 tablet, Rfl: 3 torsemide (Demadex) 20 MG tablet, Take 1 tablet (20 mg) by mouth Once per day., Disp: 30 tablet, Rfl: 5 traZODone (Desyrel) 50 MG tablet, TAKE 2 TABLETS BY MOUTH AT BEDTIME NEEDED, Disp: 60 tablet, Rfl: 3 triamcinolone (Kenalog) 0.1 % ointment, APPLY 1 GRAM TOPICALLY TO AFFECTED AREA(S) TWICE DAILY IN THE MORNING AND AT BEDTIME NEEDED FOR RASH, Disp: 30 g, Rfl: 1 zolpidem (Ambien) 10 MG tablet, Take 1 tablet by mouth 30 minutes before sleep study, Disp: 1 tablet, Rfl: 0 omeprazole (PriLOSEC) [address] capsule, Take 1 capsule (20 mg) by mouth before breakfast. Do not crush or chew., Disp: 30 capsule, Rfl: 11 Scribe Attestation: Montana Murray, am serving as a scribe to document services personally performed by Miranda Serrano, based on the patient's response to questions by provider and provider's statements to me. 04/14/24 12:43 PM Physicians Attestation: Miranda Murray DO, have reviewed the information by the scribe, Montana Fairbanks, for accuracy and agree with its content. documented in this encounter Plan of Treatment Scheduled Orders Name Type Priority Associated Diagnoses Orde r Schedule Basic Metabolic Panel Lab Routine Epigastric pain Expected: 04/14/2024 (Approximate), Expires: 04/14/2025 US Abdomen Complete Imaging Routine Epigastric pain Expected: 04/14/2024, Expires: 04/14/2025 Scheduled Referrals Name Type Priority Associated Diagnoses Orde r Schedule Referral to General Surgery Outpatient Referral Urgent Epigastric pain Expected: 04/14/2024 (Approximate), Expires: 04/14/2025 documented as of this encounter Procedures Procedure Name Priority Date/Time Associated Diagnosis Comments VITAMIN D,25-OH,TOTAL,IA Routine 04/14/2024 12:38 PM EST Epigastric pain Body mass index (BMI) 40.0-44.9, adult (CMS/HCC) ALPHA FETOPROTEIN, TUMOR MARKER Routine 04/14/2024 12:38 PM EST Epigastric pain Fatty liver Mixed hyperlipidemia CBC Routine 04/14/2024 12:38 PM EST Epigastric pain LIPASE Routine 04/14/2024 12:38 PM EST Epigastric pain HEMOGLOBIN A1C Routine 04/14/2024 12:38 PM EST Epigastric pain Abnormal finding of blood chemistry, unspecified AMYLASE Routine 04/14/2024 12:38 PM EST Epigastric pain HEPATIC FUNCTION PANEL Routine 04/14/2024 12:38 PM EST Epigastric pain LIPID PANEL, STANDARD Routine 04/14/2024 12:38 PM EST Epigastric pain Abnormal finding of blood chemistry, unspecified documented in this encounter Results * Alpha-Fetoprotein, Tumor Marker (04/14/2024 12:38 PM EST) Pathologist [facility] Alpha Fetoprotein 3.1 ng/mL [facility] Comment:Reference Range: <6. 1The use of AFP as a tumor marker in females is not recommended.This test was performed using the Jessica Coulterchemiluminescent method. Values obtained fromdifferent assay methods cannot be usedinterchangeably. AFP levels, regardless ofvalue, should not be interpreted as absoluteevidence of the presence or absence of disease.THIS TEST WAS PERFORMED AT:[facility] [place] [id number] ROSE MD Blood Venous blood specimen / Unknown 04/14/2024 12:38 PM EST 04/14/2024 1:44 PM EST Miranda Maravilla LAB BLOOD ORDERABLES Final R esult Performing Organization Address [facility]/ZIP Co de Phone Number [facility] [address] [place] [phone] * Lipase (04/14/2024 12:38 PM EST) Pathologist [facility] Lipase 31 8 - 78 U/L [facility] Blood Venous blood specimen / Unknown 04/14/2024 12:38 PM EST 04/14/2024 1:44 PM EST [facility] LAB BLOOD ORDERABLES Final R esult Performing Organization Address [facility]/ZIP Co de Phone Number [facility] [address] [place] [phone] * Amylase (04/14/2024 12:38 PM EST) Pathologist [facility] Amylase 57 28 - 100 U/L [facility] Blood Venous blood specimen / Unknown 04/14/2024 12:38 PM EST 04/14/2024 1:44 PM EST Miranda Maravilla LAB BLOOD ORDERABLES Final R esult Performing Organization Address City/[facility]/ZIP Co de Phone Number [facility] [address] [place] [phone] * (ABNORMAL) CBC (04/14/2024 12:38 PM EST) White Blood Count 4.9 4.8 - 10.8 X10*3/uL [facility] Red Blood Count 4.69 4.20 - 5.50 X10*6/uL [facility] Hemoglobin 12.5 12.0 - 16.0 g/dl [facility] Hematocrit 40.6 37.0 - 47.0 % [facility] Mean Corpuscular Volume 86.6 80.0 - 98.0 fL [facility] Mean Corpuscular Hemoglobin 26.7(L) 27.0 - 33.0 pg [facility] Mean Corpuscular HGB Conc 30.8(L) 31.0 - 35.0 g/dl [facility] Red Cell Distribution Width 17.2(H) 11.0 - 16.0 % [facility] Platelet Count 161 160 - 400 X10*3/uL [facility] Mean Platelet Volume 11.3 9.4 - 12.3 fL [facility] NRBC Pct Auto 0.0 0.0 - 0.2 /100WBC [facility] NRBC Abs Auto 0.000 0.0 - 0.012 X10*3/uL [facility] Blood Venous blood specimen / Unknown 04/14/2024 12:38 PM EST 04/14/2024 1:44 PM EST Miranda Maravilla DO LAB BLOOD ORDERABLES Final R esult [facility] [address] [place] [phone] * Hemoglobin A1c (04/14/2024 12:38 PM EST) Hemoglobin A1c 5.3 <6.0 % [facility] Comment:Hemoglobin A1C Refer ence Range Adults: 4.8 - 6.0 % Non diabetic: < 6.0 % Goal: < 7.0 %Additional Action Suggested: > 8.0 %Note: Hemoglobin A1c results are invalid for patients with abnormal amounts of HbF. Blood transfusions may impact the HbA1c concentration in the patient sample. Estimated Average Glucose 105 mg/dL [facility] Comment:eAG = Estimated ave rage glucose which is %A1C expressed asaverage glucose, using the formula of the [id number] Glucose study (ADAG), Diabetes Care, Vol.31,#8,Nov. 2007 Blood Venous blood specimen / Unknown 04/14/2024 12:38 PM EST 04/14/2024 1:44 PM EST us Miranda Maravilla DO LAB BLOOD ORDERABLES Final R esult Performing Organization Address [facility] Co de Phone Number [facility] [address] [place] [phone] * Hepatic Function Panel (04/14/2024 12:38 PM EST) Bilirubin, Direct 0.1 0.0 - 0.5 mg/dL [facility] Blood Venous blood specimen / Unknown 04/14/2024 12:38 PM EST 04/14/2024 1:44 PM EST Miranda Maravilla DO LAB BLOOD ORDERABLES Final R esult Performing Organization Address [facility] Co de Phone Number [facility] [address] [place] [phone] * Vitamin D, 25-Hydroxy, Total, Immunoassay (04/14/2024 12:38 PM EST) Vitamin D 25-OH Total 42.5 >30 ng/mL [facility] Comment:Health Based Referen ce Values*< 20 ng/mL Rimmshbpl54-69 ng/mL Insufficient> 30 ng/mL Sufficient*Sarah MENDEZ. N [...] DO LAB BLOOD ORDERABLES Final R esult [facility] [address] [place] [address] [phone] * (ABNORMAL) Lipid Panel, Standard (04/14/2024 12:38 PM EST) Triglycerides 82 <150 mg/dL [facility] Comment:Desirable Triglyceri de: less than 150 mg/dLBorderline High Triglyceride 150-199 mg/dLHigh Triglyceride: 200-499 mg/dLVery High Triglyceride: greater than or equal to 5OO mg/dL Cholesterol 199 <200 mg/dL [facility] Comment:Desirable Cholestero l: less than 200 mg/dLBorderline High Cholesterol: 200-239 mg/dLHigh Cholesterol: greater than 239 mg/dL LDL Cholesterol Calculated 104(H) <100 mg/dL [facility] Comment:Desirable LDL: less than 100 mg/dLNear Optimal/Above Optimal LDL: 110- 129 mg/dLBorderline High LDL: 130-159 mg/dLHigh LDL: 160-189 mg/dLVery High LDL: greater than or equal to 190 mg/dL HDL Cholesterol 79 >40 mg/dL [facility] Comment:Desirable HDL: great er than 40 mg/dL Note: This HDL assay may give artificially low results in patients with liver disease. Blood Venous blood specimen / Unknown 04/14/2024 12:38 PM EST 04/14/2024 1:44 PM EST us Miranda Maravilla DO LAB BLOOD ORDERABLES Final R esult [facility] [address] [place] [phone] documented in this encounter Visit Diagnoses Diagnosis Epigastric pain- Primary Abdominal pain, epigastric Fatty liver Other chronic nonalcoholic liver disease Abnormal finding of blood chemistry, unspecified Body mass index (BMI) 40.0-44.9, adult (CMS/HCC) Mixed hyperlipidemia Encounter for immunization documented in this encounter Additional Health Concerns Assessment Noted Time PHQ-9 Depression Total Score: 7 08/20/19 24 10:35 AM EDT documented as of this encounter Care Teams Commercial Attorney Relationship Specialty Start Date End Date Miranda Maravilla DO [address] [place] [address] PCP - General Family Medicine 09/26/19 documented as of this encounter
--- OUTSIDE RECORDS SUMMARY | 2024-04-30 13:03 | XMS_ITS | Encounter Summary ---
Author Organization [employer] Address [address] [facility] [address] [place] [address] Care Team Providers Care Service Delivery Manager Name Role Phone Miranda Maravilla DO Primary Care Provider + [phone] Reason for Visit * Reason Comments Med Refill Encounter Details Date Type Department Care Team ([facility] st Contact Info) Description 04/04/2024 Refill [facility] [address] [place] [address] Miranda Maravilla DO [address] [place], [place] [phone] Social History Tobacco Use Types Packs/Day Years [...] documented as of this encounter Care Teams Service Delivery Manager Relationship Specialty Start Date End Date Miranda Maravilla DO [address] [place] [phone] PCP - General Family Medicine 09/26/19 documented as of this encounter
--- OUTSIDE RECORDS SUMMARY | 2024-04-30 13:03 | XMS_ITS | Encounter Summary ---
Author Organization [employer] Address [address] [facility] [address] [place] [address] Care Team Providers Care Geneticist Name Role Phone Miranda Maravilla Primary Care Provider + [phone] Encounter Details Date Type Department Care Team (Late st Contact Info) Description 04/25/2024 Orders Only [facility] [address] [place], [place] [phone] Provider, MD Jo Ann Social History Tobacco Use Types Packs/Day Years [...] on file documented as of this encounter Procedures Procedure Name Priority Date/Time Associated Diagnosis Comments DERMATOPATHOLOGY REPORT Routine 04/18/2024 2:57 PM EST documented in this encounter Results * Dermatopathology Report (04/18/2024 2:57 PM EST) us Historical Provider LAB BLOOD ORDERABLES Barby l Result documented in this encounter Visit Diagnoses Not on filedocumented in this encounter Additional Health Concerns Assessment Noted Time PHQ-9 Depression Total Score: 7 08/20/19 24 10:35 AM EDT documented as of this encounter Care Teams Geneticist Relationship Specialty Start Date End Date Miranda Maravilla DO [address] [place] [phone] PCP - General Family Medicine 09/26/19 documented as of this encounter
--- OUTSIDE RECORDS SUMMARY | 2024-04-30 13:03 | XMS_ITS | Encounter Summary ---
Author Organization [employer] Address 75 [facility] 7t [place] [address] Care Team Providers Care Private Branch Exchange Service Advisor Name Role Phone Miranda Maravilla DO Primary Care Provider + [phone] Reason for Visit * Reason Comments Cough Nasal Congestion Encounter Details Date Type Department Care Team ([facility] st Contact Info) Description 04/22/2024 11:00 AM EST Office Visit [facility] [address] [place] [address] Madhu Anthony MD [address] [place] [address] Moderate persistent asthma with acute exacerbation (Primary Dx); Viral URI Social History Tobacco Use Types [...] Sign Reading Time Taken Comments Blood Pressure 110/79 04/22/2024 11:22 AM EST Pulse 110 04/22/2024 11:22 AM EST Temperature 36.5 ??C (97.7 ??F) 04/22/2024 11:[address] Respiratory Rate 19 04/22/2024 11:22 AM EST Oxygen Saturation 95% 04/22/2024 11:22 AM EST Inhaled Oxygen Concentration - - Weight - - Height - - Body Mass Index - - documented in this encounter Progress Notes * Carlos Simmons MA - 04/22/2024 11:00 AM EST poc * Madhu Anthony MD - 04/22/2024 11:00 AM EST Subjective Patient ID: Brandon Lang is a 49 y.o. female. 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 HPI Yesterday Brandon had onset of productive cough, wheezing, SOB, tactile fever. No n/v/d. Taking p.o. well. Taking Tylenol, albuterol via neb q4h, Breo Ellipta. Lives with parents. Mother has similar. LMP=1 year ago. Mother states missed menses due to chemotherapy for breast cancer. She is not sexually active. Never smoked. Stopped going to [employer] when she started chemotherapy; finished chemo and radiation last week. Patient Active Problem List Diagnosis Allergic rhinitis Cholelithiasis Chronic gastroesophageal reflux disease Intermittent explosive disorder Moderate intellectual disability Moderate persistent asthma BMI 40.0-44.9, adult ([facility]) GE[place] (obstructive sleep apnea) Oropharyngeal dysphagia Scoliosis Obesity hypoventilation syndrome ([facility]) Depressive disorder Chronic constipation History of COVID-19 Pulmonary hypertension ([facility]) Supplemental oxygen dependent Fatty liver Swelling of both lower extremities Healthcare maintenance Cancer of left breast, stage 3 ([facility]) Tinea pedis of both feet The following portions of the chart were reviewed this encounter and updated as appropriate: Review of Systems Constitutional: Positive for fever. Respiratory: Positive for cough, shortness of breath and wheezing. Cardiovascular: Negative for chest pain. Gastrointestinal: Negative for abdominal pain. Skin: Negative for rash. Neurological: Negative for headaches. Objective Physical Exam Constitutional: Appearance: Normal appearance. HENT: Right Ear: Tympanic membrane, ear canal and external ear normal. Left Ear: Tympanic membrane, ear canal and external ear normal. Nose: Nose normal. Mouth/Throat: Mouth: Mucous membranes are moist. Pharynx: Oropharynx is clear. Eyes: Conjunctiva/sclera: Conjunctivae normal. Pupils: Pupils are equal, round, and reactive to light. Cardiovascular: Rate and Rhythm: Normal rate and regular rhythm. Heart sounds: No murmur heard. Pulmonary: Effort: Pulmonary effort is normal. Breath sounds: Rales (right base) present. Musculoskeletal: General: Normal range of motion. Cervical back: No tenderness. Skin: Findings: No rash. Neurological: Mental Status: She is alert. Gait: Gait is intact. Psychiatric: Mood and Affect: Mood normal. Behavior: Behavior normal. Procedures Assessment/Plan Diagnoses and all orders for this visit: Moderate persistent asthma with acute exacerbation Negative rapid Covid and Influenza tests. Covid PCR and Flu tests pending. Continue current meds. Prescribed prednisone nad Zithromax due to audible rales on exam. Rtc if not improving. - POCT Rapid COVID Ag - Influenza A (ID NOW Rapid Molecular) - Influenza B (ID NOW Rapid Molecular) Other orders - predniSONE (Deltasone) 20 MG tablet; Take 2 tablets (40 mg) by mouth Once per day for 5 days. - azithromycin (Zithromax Z-Alan) 250 MG tablet; Take 2 tablets once on day 1, then 1 tablet 1x/day for 4 days. documented in this encounter Plan of Treatment Not on file documented as of this encounter Procedures Procedure Name Priority Date/Time Associated Diagnosis Comments POCT INFLUENZA B (ID NOW RAPID MOLECULAR) Routine 04/22/2024 12:00 PM EST Viral URI POCT INFLUENZA A (ID NOW RAPID MOLECULAR) Routine 04/22/2024 12:00 PM EST Viral URI POCT RAPID COVID ANTIGEN Routine 04/22/2024 12:00 PM EST Viral URI documented in this encounter Results * Influenza B (ID NOW Rapid Molecular) (04/22/2024 12:00 PM EST) [facility] Influenza B Negative Negative, Indeterminate [facility] Swab 04/22/2024 12:0 0 PM EST Madhu Anthony MD POINT OF CARE TEST ENTER/EDIT OR DERABLES Final Result Performing Organization Address [facility] Co de Phone Number [facility] [address] [place] [phone] * Influenza A (ID NOW Rapid Molecular) (04/22/2024 12:00 PM EST) [facility] Influenza A Negative Negative, Indeterminate [facility] Swab 04/22/2024 12:0 0 PM EST Madhu Anthony MD POINT OF CARE TEST ENTER/EDIT OR DERABLES Final Result Performing Organization Address [facility] Co de Phone Number [facility] [address] [place] [phone] * POCT Rapid COVID Ag (04/22/2024 12:00 PM EST) Pathologist [facility] Rapid COVID Ag Negative [facility] Swab 04/22/2024 12:0 0 PM EST us Madhu Anthony MD POINT OF CARE TEST ENTER/EDIT OR DERABLES Final Result [facility] [address] [place] [phone] documented in this encounter Visit Diagnoses Diagnosis Moderate persistent asthma with acute exacerbation- Primary Viral URI Acute upper respiratory infections of unspecified site documented in this encounter Additional Health Concerns Assessment Noted Time PHQ-9 Depression Total Score: 7 08/20/19 24 10:35 AM EDT documented as of this encounter Care Teams Private Branch Exchange Service Advisor Relationship Specialty Start Date End Date Miranda Maravilla DO [address] [place] [address] PCP - General Family Medicine 09/26/19 documented as of this encounter
--- OUTSIDE RECORDS SUMMARY | 2024-04-30 13:03 | XMS_ITS | Encounter Summary ---
Author Organization [employer] Address 75 [facility] 7t [place] [address] Care Team Providers Care Die Stamping Press Operator Name Role Phone Miranda Maravilla DO Primary Care Provider + [phone] Encounter Details Date Type Department Care Team (Latest Contact Info) Description 04/14/2024 Travel Social History Tobacco Use Types Packs/Day [...] documented as of this encounter Care Teams Die Stamping Press Operator Relationship Specialty Start Date End Date Miranda Maravilla DO [address] [place] [phone] PCP - General Family Medicine 09/26/19 documented as of this encounter
--- OUTSIDE RECORDS SUMMARY | 2024-04-30 13:03 | XMS_ITS | Encounter Summary ---
Author Organization [employer] Address 75 [facility] 7t [place] [address] Care Team Providers Care Plant Control Aide Name Role Phone Miranda Maravilla DO Primary Care Provider + [phone] Encounter Details Date Type Department Care Team (Late st Contact Info) Description 04/14/2024 Orders Only GENERIC EXTERNAL DATA DEPARTMENT Provider, Generic External Data Social History Tobacco Use Types Packs/Day Years [...] Procedure Name Priority Date/Time Associated Diagnosis Comments CBC WITH AUTO DIFFERENTIAL Routine 04/14/2024 12:38 PM EST CANCER ANTIGEN 27.29 Routine 04/14/2024 12:38 PM EST COMPREHENSIVE METABOLIC PANEL Routine 04/14/2024 12:38 PM EST documented in this encounter Results * Cancer antigen 27.29 (04/14/2024 12:38 PM EST) CA 27.29 16 <38 U/mL [facility] Comment:This test was perfor med using the SiemensChemiluminescent method. Values obtained fromdifferent assay methods cannot be usedinterchangeably. CA 27.29 levels, regardless ofvalue, should not be interpreted as absoluteevidence of the presence or absence of disease.The CA 27.29 result may be increased on average 5- 10%,relative to results previously obtained with thismethod due to a recent calibrator adjustment made inOctober 2023 by the reagent visual merchandising director. In the lowrange for this assay (<38 U/mL), this increase may begreater than 20%. Serially monitored results shouldalways be used in conjunction with other diagnosticprocedures, including clinical evaluation.THIS TEST WAS PERFORMED AT:[facility] [place] [id number] ROSE MD 04/14/2024 12:3 8 PM EST 04/14/2024 1:44 PM EST us Generic External Data Provider LAB BLOOD ORDERAB LES Final Result [facility] [address] [place] [phone] * (ABNORMAL) Comprehensive Metabolic Panel (04/14/2024 12:38 PM EST) Pathologist [facility] Sodium 142 135 - 145 mmol/L [facility] Potassium 4.0 3.3 - 5.1 mmol/L [facility] Chloride 105 96 - 108 mmol/L [facility] Carbon Dioxide 31(H) 22 - 29 mmol/L [facility] Anion Gap 10(L) 12 - 20 [facility] Urea Nitrogen (BUN) 11 9 - 16 mg/dL [facility] Creatinine, Serum 0.63 0.5 - 1.4 mg/dL [facility] Estimated Glomerular Filt Rate >60 [facility] Comment:Chronic Kidney Disea se: Estimated GFR < 60 mL/min/[id number] Kidney Disease: Estimated GFR < 15 mL/min/1.73m2 Glucose 119(H) 60 - 115 mg/dL [facility] Calcium 9.5 8.4 - 10.2 mg/dL [facility] Bilirubin, Total 0.4 0.0 - 1.0 mg/dL [facility] Aspartate Amino Transferase 23 5 - 31 U/L [facility] Alanine Aminotransferase 23 0 - 31 U/L [facility] Total Protein 7.2 6.5 - 8.0 g/dL [facility] Albumin Level 3.8 3.5 - 5.0 g/dL [facility] Alkaline Phosphatase 85 39 - 117 U/L [facility] 04/14/2024 12:3 8 PM EST 04/14/2024 1:44 PM EST us Generic External Data Provider LAB BLOOD ORDERAB LES Final Result [facility] [address] [place] [phone] * (ABNORMAL) CBC auto differential (04/14/2024 12:38 PM EST) Pathologist [facility] White Blood Count 5.0 4.8 - 10.8 X10*3/uL [facility] Red Blood Count 4.70 4.20 - 5.50 X10*6/uL [facility] Hemoglobin 12.7 12.0 - 16.0 g/dl [facility] Hematocrit 40.7 37.0 - 47.0 % [facility] Mean Corpuscular Volume 86.6 80.0 - 98.0 fL [facility] Mean Corpuscular Hemoglobin 27.0 27.0 - 33.0 pg [facility] Mean Corpuscular HGB Conc 31.2 31.0 - 35.0 g/dl [facility] Red Cell Distribution Width 17.2(H) 11.0 - 16.0 % [facility] Platelet Count 155(L) 160 - 400 X10*3/uL [facility] Mean Platelet Volume 11.1 9.4 - 12.3 fL [facility] Neutrophils Percent Auto 73.6(H) 45 - 73 % [facility] Imm Gran Pct Auto 0.4 0.0 - 0.4 % [facility] Lymphocytes Percent Auto 11.3(L) 20 - 40 % [facility] Monocytes Percent Auto 8.7 2 - 11 % [facility] Eosinophils Percent Auto 5.6(H) 0 - 4 % [facility] Basophils Percent Auto 0.4 0 - 2 % [facility] NRBC Pct Auto 0.0 0.0 - 0.2 /100WBC [facility] Neutrophils Absolute Auto 3.7 2.0 - 8.3 x10*3/uL [facility] Imm Gran Abs Auto 0.02 0.00 - 0.03 X10*3/uL [facility] Lymphocytes Absolute Auto 0.6(L) 1.2 - 4.9 X10*3/uL [facility] Monocytes Absolute Auto 0.4 0.1 - 1.2 X10*3/uL [facility] Eosinophils Absolute Auto 0.3 0.0 - 0.4 X10*3/uL [facility] Basophils Absolute Auto 0.0 0.0 - 0.2 X10*3/uL [facility] NRBC Abs Auto 0.000 0.0 - 0.012 X10*3/uL [facility] 04/14/2024 12:3 8 PM EST 04/14/2024 1:44 PM EST us Generic External Data Provider LAB BLOOD ORDERAB LES Final Result Performing Organization Address City/State/[facility] Co de Phone Number [facility] [address] [place] [phone] documented in this encounter Visit Diagnoses Not on filedocumented in this encounter Additional Health Concerns Assessment Noted Time PHQ-9 Depression Total Score: 7 08/20/19 24 10:35 AM EDT documented as of this encounter Care Teams Plant Control Aide Relationship Specialty Start Date End Date Miranda Maravilla DO [address] [place] [phone] PCP - General Family Medicine 09/26/19 documented as of this encounter
--- OUTSIDE RECORDS SUMMARY | 2024-04-30 13:03 | XMS_ITS | Encounter Summary ---
Author Organization [employer] Address 75 [facility] [address] [place] [address] Care Team Providers Care Rn Referral Name Role Phone Miranda Maravilla DO Primary Care Provider + [phone] Reason for Visit * Reason Onset Date Comments Nurse Triage 04/08/2024 Encounter Details Date Type Department Care Team ([facility] st Contact Info) Description 04/08/2024 Telephone [facility] [address] [place], [place] [phone] Miranda Maravilla DO [address] [place], [place] [phone] Nurse Triage Social History Tobacco Use Types Packs/Day Years [...] AM EDT documented as of this encounter Miscellaneous Notes * Telephone Encounter - Jelly Edwards LPN - 04/08/2024 10:44 AM EST Triage call returned with BLS #[id number] [place]. Patient Mom on phone who reports patient with intermittent pain below right breast. No rash or redness skin is intact. Mom reports patient completed radiation of left breast 04/03/24. Mom relates that PCP had identified previously stones and that patient may have pain occasionally related to these . Image reports indicate gallstones and Mom reports no surgery was indicated. Mom reports no pain today. Reinforces pain comes and goes. OTC Tylenol effective for discomfort as needed. No nausea or vomiting reported. Mom was told to stop Tamoxifen previously ordered and to restart after completion of radiation but wants confirmation with this. Disposition reviewed and patient Mom in agreement with plan. ASK/Abner Hoffman DO on 04/14/23 at 12 noon.Will see PCP post radiation day 11. Reviewed with patient home care recommendations and reasons to call back. Pt verbalized understanding and agrees. Protocol Used: Breast Symptoms (Adult) Protocol-Based Disposition: See in Office or Video Visit within 2 Weeks Positive Triage Question: * Breast pain and cause is not known * All higher-acuity triage questions were negative Care Advice Discussed: * Reasons To Call Back - Change in appearance of breast - You have more questions - You become worse * Telephone Encounter - Hetal Anderson - 04/08/2024 10:39 AM EST Symptom: Abdominal Pain - Female - Not Outcome: Schedule an urgent appointment (within 4 hours) or talk to a nurse or provider soon Reason: Started within the past 3 days documented in this encounter Plan of Treatment Not on file documented as of this encounter Visit Diagnoses Not on filedocumented in this encounter Additional Health Concerns Assessment Noted Time PHQ-9 Depression Total Score: 7 08/20/19 24 10:35 AM EDT documented as of this encounter Care Teams Rn Referral Relationship Specialty Start Date End Date Miranda Maravilla DO [address] [place] [address] PCP - General Family Medicine 09/26/19 documented as of this encounter
--- OUTSIDE RECORDS SUMMARY | 2024-04-30 13:03 | XMS_ITS | Encounter Summary ---
Author Organization [email or web address] Address 75 [facility] [address] [place] [address] Care Team Providers Care Batch Trucker Name Role Phone Miranda Maravilla DO Primary Care Provider + [phone] Reason for Visit * Reason Comments Med Refill Encounter Details Date Type Department Care Team ([facility] st Contact Info) Description 04/11/2024 Refill [facility] [address] [place] [address] Miranda Maravilla DO [address] [place], [place] [phone] Pain Social History Tobacco Use Types Packs/Day Years [...] as of this encounter Visit Diagnoses Diagnosis Pain Generalized pain documented in this encounter Additional Health Concerns Assessment Noted Time PHQ-9 Depression Total Score: 7 08/20/19 24 10:35 AM EDT documented as of this encounter Care Teams Batch Trucker Relationship Specialty Start Date End Date Miranda Maravilla DO [address] [place] [phone] PCP - General Family Medicine 09/26/19 documented as of this encounter
--- OUTSIDE RECORDS SUMMARY | 2024-04-30 13:04 | XMS_ITS | Encounter Summary ---
Author Organization [employer] Address 75 [facility] [address] [place] [address] Care Team Providers Care Land Economist Name Role Phone Miranda Maravilla DO Primary Care Provider + [phone] Reason for Visit * Reason Comments Med Refill Encounter Details Date Type Department Care Team ([facility] st Contact Info) Description 07/26/2022 Refill [facility] [address] [place] [address] Miranda Maravilla DO [address] [place], [place] [phone] Social History Tobacco Use Types Packs/Day Years Used Date Smoking Tobacco: Never Passive Smoke Exposure: Never Smokeless Tobacco: Never Alcohol Use Standard Drinks/Week Comments Never 0 (1 standard drink = 0.6 oz pur e alcohol) Depression Answer Date Recorded Patient Health Questionnaire-9 Score 0 05/09/2022 Depression Answer Date Recorded Patient Health Questionnaire-2 Score 0 05/09/2022 Comments Unknown Sex and Gender Information Value Date Recorded Sex Assigned at Female 2022 10:14 AM EDT Legal Sex Female 10:14 AM EDT Gender Identity Female 2022 10:14 AM EDT Sexual Orientation Bisexual 2022 10 :14 AM EDT COVID-19 Exposure Response Date Recorded In the last 10 days, have yo u been in contact with someone who was confirmed or suspected to have Coronavirus/COVID-19? No / Unsure 07/25/2022 9:07 AM EDT documented as of this encounter Plan of Treatment Not on file documented as of this encounter Visit Diagnoses Not on filedocumented in this encounter Additional Health Concerns Assessment Noted Time PHQ-9 Depression Total Score: 0 05/09/19 23 9:16 AM EST documented as of this encounter Care Teams Land Economist Relationship Specialty Start Date End Date Miranda Maravilla DO [address] [place] [address] PCP - General Family Medicine 09/26/19 documented as of this encounter
--- OUTSIDE RECORDS SUMMARY | 2024-04-30 13:04 | XMS_ITS | Encounter Summary ---
Author Organization [employer] Address 75 [facility] [address] [place] [address] Care Team Providers Care Mill Recorder Name Role Phone Miranda Maravilla DO Primary Care Provider + [phone] Reason for Visit * Reason Comments Med Refill Encounter Details Date Type Department Care Team ([facility] st Contact Info) Description 07/22/2022 Refill [facility] [address] [place] [address] Miranda Maravilla DO [address] [place], [place] [phone] Social History Tobacco Use Types Packs/Day Years [...] documented as of this encounter Care Teams Mill Recorder Relationship Specialty Start Date End Date Miranda Maravilla DO [address] [place] [address] PCP - General Family Medicine 09/26/19 documented as of this encounter
--- OUTSIDE RECORDS SUMMARY | 2024-04-30 13:04 | XMS_ITS | Encounter Summary ---
Author Organization [employer] Address [address] [facility] 7t [place] [address] Care Team Providers Care Flight Steward Name Role Phone Miranda Maravilla DO Primary Care Provider + [phone] Reason for Visit * Reason Comments Med Refill Encounter Details Date Type Department Care Team ([facility] st Contact Info) Description 06/11/2023 Refill [facility] [address] [place] [address] Miranda Maravilla DO [address] [place], [place] [phone] Pain Social History Tobacco Use Types Packs/Day Years Used Date Smoking Tobacco: Never Passive Smoke Exposure: Never Smokeless Tobacco: Never Alcohol Use Standard Drinks/Week Comments Never 0 (1 standard drink = 0.6 oz pur e alcohol) Depression Answer Date Recorded Patient Health Questionnaire-9 Score 0 05/09/2022 Housing Stability Answer Date Recorded What is your housing situation today? I have obed gutierres 01/22/[address] you li ve. Do you have problems with any of the following? None of the above 01/22/2023 Food Insecurity Answer Date Recorded Within the past 12 months, y ou worried that your food would run out before you got money to buy more: Never True 01/22/2023 Within the past 12 months,th e food you bought just didn't last and you didn't have enough money to get more: Never True Transportation Answer Date Recorded In the past 12 months, has l ack of transportation kept you from medical appts, meetings, work or from getting things needed for daily living? No 01/22/2023 Utilities Answer Date Recorded In the past 12 months, has t he PrivacyProtector, gas, oil or water company threatened to shut off services in your home? No 01/22/2023 Depression Answer Date Recorded Patient Health Questionnaire-2 [...] documented as of this encounter Care Teams Flight Steward Relationship Specialty Start Date End Date Miranda Maravilla DO [address] [place] [phone] PCP - General Family Medicine 09/26/19 documented as of this encounter
--- OUTSIDE RECORDS SUMMARY | 2024-04-30 13:04 | XMS_ITS | Encounter Summary ---
Author Organization [employer] Address 75 [facility] [address] [place] [address] Care Team Providers Care Tattoo Designer Name Role Phone Miranda Maravilla DO Primary Care Provider + [phone] Encounter Details Date Type Department Care Team ([facility] st Contact Info) Description 04/05/2022 Telephone [facility] [address] [place], [place] [phone] Miranda Maravilla DO [address] [place], [place] [phone] Social History Tobacco Use Types Packs/Day Years Used Date Smoking Tobacco: Never Passive Smoke Exposure: Never Alcohol Use Standard Drinks/Week Comments Never 0 (1 standard drink = 0.6 oz pur e alcohol) Comments Unknown Sex and Gender Information Value [...] suspected to have Coronavirus/COVID-19? No / Unsure 03/28/2022 10:23 AM EST documented as of this encounter Plan of Treatment Not on file documented as of this encounter Visit Diagnoses Not on filedocumented in this encounter Additional Health Concerns Assessment Noted Time PHQ-9 Depression Total Score: 0 03/28/20 10:45 AM EST documented as of this encounter Care Teams Tattoo Designer Relationship Specialty Start Date End Date Miranda Maravilla DO [address] [place] [address] PCP - General Family Medicine 09/26/19 documented as of this encounter
--- OUTSIDE RECORDS SUMMARY | 2024-04-30 13:04 | XMS_ITS | Encounter Summary ---
Author Organization [employer] Address [address] [facility] [address] [place] [address] Care Team Providers Care Manager Diesel Name Role Phone Miranda Maravilla DO Primary Care Provider + [phone] Reason for Visit * Reason Comments Med Refill Encounter Details Date Type Department Care Team ([facility] st Contact Info) Description 05/18/[address] [facility] [address] [place] [address] Mrianda Maravilla DO [address] [place], [place] [id number] Social History Tobacco Use Types Packs/Day Years [...] suspected to have Coronavirus/COVID-19? No / Unsure 05/19/2022 10:31 AM EST documented as of this encounter Plan of Treatment Not on file documented as of this encounter Visit Diagnoses Not on filedocumented in this encounter Additional Health Concerns Assessment Noted Time PHQ-9 Depression Total Score: 0 05/09/19 23 9:16 AM EST documented as of this encounter Care Teams Manager Diesel Relationship Specialty Start Date End Date Miranda Maravilla DO [address] [place] [address] PCP - General Family Medicine 09/26/19 documented as of this encounter
== END 2024-04-30 11:21 | disposition home or self-care (01) ==
LOC: HO.HHCX 11:20
PROVIDERS: Visit Provider Family Medicine
DX: J06.9 Acute upper respiratory infection, unspecified (principal)
CPT/HCPCS: 71046

== ENCOUNTER → 2024-04-30 11:21 | Outpatient (BNV) | payer MEDICARE, MEDICAID, SELFPAY | PROVIDERS: Visit Provider Radiology Diagnostic Radiology | DX: R05.9 Cough, unspecified (principal); R09.89 Other specified symptoms and signs involving the circulatory and respiratory systems | CPT/HCPCS: 71046 ==

== ENCOUNTER 2024-05-06 07:54 | Outpatient (REF) | payer MEDICARE, MEDICAID, SELFPAY ==
--- NOTE | ~2024-05-06 | US_ITS ---
CLINICAL HISTORY: epigastric pain RUQ pain US abdomen complete Comparison: None Findings: The visualized pancreas is normal. The aorta and inferior vena cava are normal caliber. The liver is normal in size and echotexture. There is no intrahepatic bile duct dilatation. The common duct is four mm in diameter. The gallbladder demonstrates multiple stones. There is no sonographic Chew sign. The main portal vein is antegrade. The right kidney is 10.0 cm in length. The left kidney and spleen are not evaluable secondary to patient inability to tolerate exam. No ascites. IMPRESSION: Multiple stones are present within the gallbladder. No convincing evidence of acute cholecystitis. The study is limited based on patient inability to tolerate exam. This document has been electronically signed by: Rex Ohara MD on 05/06/2024 13:03:58
--- OUTSIDE RECORDS SUMMARY | 2024-05-06 07:56 | XMS_ITS | Encounter Summary ---
Author Organization [employer] Address [address] [facility] 7t [place] [address] Care Team Providers Care Contact Center Associate Name Role Phone Miranda Maravilla DO Primary Care Provider + [phone] Encounter Details Date Type Department Care Team [...] documented as of this encounter Care Teams Contact Center Associate Relationship Specialty Start Date End Date Miranda Maravilla DO [address] [place] [phone] PCP - General Family Medicine 09/26/19 documented as of this encounter
--- OUTSIDE RECORDS SUMMARY | 2024-05-06 07:56 | XMS_ITS | Encounter Summary ---
Author Organization [employer] Address [address] [facility] [address] [place] [address] Care Team Providers Care Dolly Operator Name Role Phone Miranda Maravilla DO Primary Care Provider + [phone] Reason for Visit * Reason Comments Med Refill Encounter Details Date Type Department Care Team ([facility] st Contact Info) Description 07/26/2022 Refill [facility] [address] [place] [address] Miranda Maravilla DO [address] [place], [place] [phone] Social History Tobacco Use Types Packs/Day Years [...] documented as of this encounter Care Teams Dolly Operator Relationship Specialty Start Date End Date Miranda Maravilla DO [address] [place] [address] PCP - General Family Medicine 09/26/19 documented as of this encounter
--- OUTSIDE RECORDS SUMMARY | 2024-05-06 07:56 | XMS_ITS | Encounter Summary ---
Author Organization [employer] Address [address] [facility] [address] [place] [address] Care Team Providers Care Science Education Professor Name Role Phone Miranda Maravilla DO Primary Care Provider + [phone] Reason for Visit * Reason Comments Med Refill Encounter Details Date Type Department Care Team ([facility] st Contact Info) Description 04/04/2024 Refill [facility] [address] [place] [address] Miranda Maravilla DO [address] [place], [place] [phone] Social History Tobacco Use Types Packs/Day Years [...] documented as of this encounter Care Teams Science Education Professor Relationship Specialty Start Date End Date Miranda Maravilla DO [address] [place] [phone] PCP - General Family Medicine 09/26/19 documented as of this encounter
--- OUTSIDE RECORDS SUMMARY | 2024-05-06 07:56 | XMS_ITS | Encounter Summary ---
Author Organization [employer] Address [address] [facility] 7t [place] [address] Care Team Providers Care Esthetician Name Role Phone Miranda Maravilla DO Primary Care Provider + [phone] Reason for Referral * Consultation (Urgent) - Closed Specialty Diagnoses / Procedures Referred By Kuldeep johnson Referred To Contact General Surgery Diagnoses Epigastric pain Miranda Maravilla DO [address] [place], [place] Phone: tel: fax: Jarrett Van MD [address] [place] [address] Phone: tel: fax: Referral ID Status Reason Start Date Expiration Date V isits Requested Visits Authorized [id number] Closed Specialty Services Required 04/14/2024 04/14/2025 1 1 * Imaging (Routine) - Authorized Specialty Diagnoses / Procedures Referred By Kuldeep johnson Referred To Contact Radiology Diagnoses Epigastric pain Procedures US Abdomen Complete Miranda Maravilla DO [address] [place], [place] Phone: tel: fax: [facility] [address] [place] [address] Phone: tel: fax: Referral ID Status Reason Start Date Expiration Date V isits Requested Visits Authorized [id number] Authorized 04/14/2024 04/14/2025 1 1 Encounter Details Date Type Department Care Team (Late st Contact Info) Description 04/14/2024 12:00 PM EST Office Visit [facility] [address] [place] [address] Miranda Maravilla, [address] [place] [address] Epigastric pain (Primary Dx); Fatty liver; Abnormal [...] for repeat -trial omeprazole daily -referred to [facility] for eval -advised rtc or go to [...] 30 capsule, Rfl: 11 Scribe Attestation: [place] Murrya, am serving as a scribe to document [...] Tumor Marker (04/14/2024 12:38 PM EST) Pathologist [facility] Alpha Fetoprotein 3.1 ng/mL [facility] Comment:Reference Range: <6. 1The use of AFP as a tumor marker in females is not recommended.This test was performed using the Jessica Coulterchemiluminescent method. Values obtained fromdifferent assay methods cannot be usedinterchangeably. AFP levels, regardless ofvalue, should not be interpreted as absoluteevidence of the presence or absence of disease.THIS TEST WAS PERFORMED AT:[id number] [place] [id number] ROSE MD Blood Venous blood specimen / Unknown 04/14/2024 12:38 PM EST 04/14/2024 1:44 PM EST Miranda Maravilla DO LAB BLOOD ORDERABLES Final R esult Performing Organization Address City/[facility]/ZIP Co de Phone Number [facility] [address] [place] [phone] * Lipase (04/14/2024 12:38 PM EST) Pathologist [facility] Lipase 31 8 - 78 U/L [facility] Blood Venous blood specimen / Unknown 04/14/2024 12:38 PM EST 04/14/2024 1:44 PM EST Miranda Maravilla LAB BLOOD ORDERABLES Final R esult Performing Organization Address [facility]/ZIP Co de Phone Number [facility] [address] [place] [phone] * Amylase (04/14/2024 12:38 PM EST) Pathologist [facility] Amylase 57 28 - 100 U/L [facility] Blood Venous blood specimen / Unknown 04/14/2024 12:38 PM EST 04/14/2024 1:44 PM EST Miranda Maravilla DO LAB BLOOD ORDERABLES Final R esult Performing Organization Address City/[facility]/ZIP Co de Phone Number [facility] [address] [place], [place] [phone] * (ABNORMAL) CBC (04/14/2024 12:38 PM EST) Pathologist [facility] White Blood Count 4.9 4.8 - 10.8 X10*3/uL [facility] Red Blood Count 4.69 4.20 - 5.50 X10*6/uL [facility] Hemoglobin 12.5 12.0 - 16.0 g/dl [facility] Hematocrit 40.6 37.0 - 47.0 % [facility] Mean Corpuscular Volume 86.6 80.0 - 98.0 fL [facility] Mean Corpuscular Hemoglobin 26.7(L) 27.0 - 33.0 pg [facility] Mean Corpuscular HGB Conc 30.8(L) 31.0 - 35.0 g/dl [facility] Red Cell Distribution Width 17.2(H) 11.0 - 16.0 % [facility] Platelet Count 161 160 - 400 X10*3/uL [facility] Mean Platelet Volume 11.3 9.4 - 12.3 fL [facility] NRBC Pct Auto 0.0 0.0 - 0.2 /100WBC [facility] NRBC Abs Auto 0.000 0.0 - 0.012 X10*3/uL [facility] Blood Venous blood specimen / Unknown 04/14/2024 12:38 PM EST 04/14/2024 1:44 PM EST Miranda Maravilla DO LAB BLOOD ORDERABLES Final R esult [facility] [address] [place] [phone] * Hemoglobin A1c (04/14/2024 12:38 PM EST) Hemoglobin A1c 5.3 <6.0 % [facility] Comment:Hemoglobin A1C Refer ence Range Adults: 4.8 - 6.0 % Non diabetic: < 6.0 % Goal: < 7.0 %Additional Action Suggested: > 8.0 %Note: Hemoglobin A1c results are invalid for patients with abnormal amounts of HbF. Blood transfusions may impact the HbA1c concentration in the patient sample. Estimated Average Glucose 105 mg/dL [facility] Comment:eAG = Estimated ave rage glucose which is %A1C expressed asaverage glucose, using the formula of the V3B-KknlxyvJnffhbs Glucose study (ADAG), Diabetes Care, Vol.31,#8,2007 Blood Venous blood specimen / Unknown 04/14/2024 12:38 PM EST 04/14/2024 1:44 PM EST us Miranda Maravilla DO LAB BLOOD ORDERABLES Final R esult Performing Organization Address [facility] Co de Phone Number [facility] [address] [place] [phone] * Hepatic Function Panel (04/14/2024 12:38 PM EST) Bilirubin, Direct 0.1 0.0 - 0.5 mg/dL [facility] Blood Venous blood specimen / Unknown 04/14/2024 12:38 PM EST 04/14/2024 1:44 PM EST Miranda Maravilla DO LAB BLOOD ORDERABLES Final R esult Performing Organization Address [facility]/ZIP Co de Phone Number [facility] [address] [place] [phone] * Vitamin D, 25-Hydroxy, Total, Immunoassay (04/14/2024 12:38 PM EST) Vitamin D 25-OH Total 42.5 >30 ng/mL [facility] Comment:Health Based Referen ce Values*< 20 ng/mL Fbrqsvosw29-20 ng/mL Insufficient> 30 ng/mL Sufficient*Sarah MENDEZ. N [...] DO LAB BLOOD ORDERABLES Final R esult [facility] [address] [place] [address] [phone] * (ABNORMAL) Lipid Panel, Standard (04/14/2024 12:38 PM EST) Triglycerides 82 <150 mg/dL [facility] Comment:Desirable Triglyceri de: less than 150 mg/dLBorderline High Triglyceride 150-199 mg/dLHigh Triglyceride: 200-499 mg/dLVery High Triglyceride: greater than or equal to 5OO mg/dL Cholesterol 199 <200 mg/dL [facility] Comment:Desirable Cholestero l: less than 200 mg/dLBorderline High Cholesterol: 200-239 mg/dLHigh Cholesterol: greater than 239 mg/dL LDL Cholesterol Calculated 104(H) <100 mg/dL [facility] Comment:Desirable LDL: less than 100 mg/dLNear Optimal/Above Optimal LDL: 110- 129 mg/dLBorderline High LDL: 130-159 mg/dLHigh LDL: 160-189 mg/dLVery High LDL: greater than or equal to 190 mg/dL HDL Cholesterol 79 >40 mg/dL [facility] Comment:Desirable HDL: great er than 40 mg/dL Note: This HDL assay may give artificially low results in patients with liver disease. Blood Venous blood specimen / Unknown 04/14/2024 12:38 PM EST 04/14/2024 1:44 PM EST us Miranda Maravilla DO LAB BLOOD ORDERABLES Final R esult [facility] [address] [place] [phone] documented in this encounter Visit Diagnoses [...] documented as of this encounter Care Teams Esthetician Relationship Specialty Start Date End Date Miranda Maravilla DO [address] [place] [address] PCP - General Family Medicine 09/26/19 documented as of this encounter
--- OUTSIDE RECORDS SUMMARY | 2024-05-06 07:56 | XMS_ITS | Encounter Summary ---
Author Organization [employer] Address [address] [facility] [address] [place] [address] Care Team Providers Care Automatic Pattern Edger Name Role Phone Miranda Maravilla DO Primary Care Provider + [phone] Encounter Details Date Type Department Care Team ([facility] st Contact Info) Description 04/05/2022 Telephone [facility] [address] [place], [place] [phone] Miranda Maravilla DO [address] [place], [place] [phone] Social History Tobacco Use Types Packs/Day Years [...] documented as of this encounter Care Teams Automatic Pattern Edger Relationship Specialty Start Date End Date Miranda Maravilla DO [address] [place], [place] [phone] PCP - General Family Medicine 09/26/19 documented as of this encounter
--- OUTSIDE RECORDS SUMMARY | 2024-05-06 07:56 | XMS_ITS | Encounter Summary ---
Author Organization [employer] Address 75 [facility] 7t [place] [address] Care Team Providers Care Malt House Supervisor Name Role Phone Miranda Maravilla DO Primary Care Provider + [phone] Encounter Details Date Type Department Care Team [...] EST) CA 27.29 16 <38 U/mL [facility] Comment:This test was perfor med [...] adjustment made inOctober 2023 by the reagent retail banking manager. In the lowrange for this assay (<38 U/mL), this increase may begreater than 20%. Serially monitored results shouldalways be used in conjunction with other diagnosticprocedures, including clinical evaluation.THIS TEST WAS PERFORMED AT:[employer] [place] [id number] ROSE MD 04/14/2024 12:3 8 PM EST 04/14/2024 1:44 PM EST us Generic External Data Provider LAB BLOOD ORDERAB LES Final Result [facility] [address] [place] [phone] * (ABNORMAL) Comprehensive Metabolic Panel (04/14/2024 12:38 PM EST) Pathologist [facility] Sodium 142 135 - 145 mmol/L [facility] Potassium 4.0 3.3 - 5.1 mmol/L [facility] Chloride 105 96 - 108 mmol/L [facility] Carbon Dioxide 31(H) 22 - 29 mmol/L [facility] Anion Gap 10(L) 12 - 20 [facility] Urea Nitrogen (BUN) 11 9 - 16 mg/dL [facility] Creatinine, Serum 0.63 0.5 - 1.4 mg/dL [facility] Estimated Glomerular Filt Rate >60 [facility] Comment:Chronic Kidney Disea se: Estimated GFR < 60 mL/min/1.32a9Ipyrux Kidney Disease: Estimated GFR < 15 mL/min/1.73m2 Glucose 119(H) 60 - 115 mg/dL [facility] Calcium 9.5 8.4 - 10.2 mg/dL [facility] Bilirubin, Total 0.4 0.0 - 1.0 mg/dL [facility] Aspartate Amino Transferase 23 5 - 31 U/L [facility] Alanine Aminotransferase 23 0 - 31 U/L [facility] Total Protein 7.2 6.5 - 8.0 g/dL [facility] Albumin Level 3.8 3.5 - 5.0 g/dL [facility] Alkaline Phosphatase 85 39 - 117 U/L [facility] 04/14/2024 12:3 8 PM EST 04/14/2024 1:44 PM EST us Generic External Data Provider LAB BLOOD ORDERAB LES Final Result [facility] [address] [place] [phone] * (ABNORMAL) CBC auto differential (04/14/2024 12:38 PM EST) Pathologist [facility] White Blood Count 5.0 4.8 - 10.8 X10*3/uL [facility] Red Blood Count 4.70 4.20 - 5.50 X10*6/uL [facility] Hemoglobin 12.7 12.0 - 16.0 g/dl [facility] Hematocrit 40.7 37.0 - 47.0 % [facility] Mean Corpuscular Volume 86.6 80.0 - 98.0 fL [facility] Mean Corpuscular Hemoglobin 27.0 27.0 - 33.0 pg [facility] Mean Corpuscular HGB Conc 31.2 31.0 - 35.0 g/dl [facility] Red Cell Distribution Width 17.2(H) 11.0 - 16.0 % [facility] Platelet Count 155(L) 160 - 400 X10*3/uL [facility] Mean Platelet Volume 11.1 9.4 - 12.3 fL [facility] Neutrophils Percent Auto 73.6(H) 45 - 73 % [facility] Imm Gran Pct Auto 0.4 0.0 - 0.4 % [facility] Lymphocytes Percent Auto 11.3(L) 20 - 40 % [facility] Monocytes Percent Auto 8.7 2 - 11 % [facility] Eosinophils Percent Auto 5.6(H) 0 - 4 % [facility] Basophils Percent Auto 0.4 0 - 2 % [facility] NRBC Pct Auto 0.0 0.0 - 0.2 /100WBC [facility] Neutrophils Absolute Auto 3.7 2.0 - 8.3 x10*3/uL [facility] Imm Gran Abs Auto 0.02 0.00 - 0.03 X10*3/uL [facility] Lymphocytes Absolute Auto 0.6(L) 1.2 - 4.9 X10*3/uL [facility] Monocytes Absolute Auto 0.4 0.1 - 1.2 X10*3/uL [facility] Eosinophils Absolute Auto 0.3 0.0 - 0.4 X10*3/uL [facility] Basophils Absolute Auto 0.0 0.0 - 0.2 X10*3/uL [facility] NRBC Abs Auto 0.000 0.0 - 0.012 X10*3/uL [facility] 04/14/2024 12:3 8 PM EST 04/14/2024 1:44 PM EST us Generic External Data Provider LAB BLOOD ORDERAB LES Final Result Performing Organization Address City/State/[facility] Co de Phone Number [facility] [address] [place] [phone] documented in this encounter Visit Diagnoses Not on filedocumented in this encounter Additional Health Concerns Assessment Noted Time PHQ-9 Depression Total Score: 7 08/20/19 24 10:35 AM EDT documented as of this encounter Care Teams Malt House Supervisor Relationship Specialty Start Date End Date Miranda Maravilla DO [address] [place] [phone] PCP - General Family Medicine 09/26/19 documented as of this encounter
--- OUTSIDE RECORDS SUMMARY | 2024-05-06 07:56 | XMS_ITS | Encounter Summary ---
Author Organization [employer] Address [address] [facility] 7t [place] [address] Care Team Providers Care Director Of Litigation Name Role Phone Miranda Maravilla DO Primary Care Provider + [phone] Encounter Details Date Type Department Care Team [...] documented as of this encounter Care Teams Director Of Litigation Relationship Specialty Start Date End Date Miranda Maravilla DO [address] [place] [address] PCP - General Family Medicine 09/26/19 documented as of this encounter
--- OUTSIDE RECORDS SUMMARY | 2024-05-06 07:56 | XMS_ITS | Encounter Summary ---
Author Organization [employer] Address [address] [facility] [address] [place] [address] Care Team Providers Care Supervisor Park Workers Name Role Phone Miranda Maravilla DO Primary Care Provider + [phone] Reason for Visit * Reason Onset Date Comments Nurse Triage 04/08/2024 Encounter Details Date Type Department Care Team ([facility] st Contact Info) Description 04/08/2024 Telephone [facility] [address] [place], [place] [phone] Miranda Maravilla DO [address] [place], [place] [phone] Nurse Triage Social History Tobacco Use Types [...] AM EST Triage call returned with BLS #[id number] Gordy. Patient Mom on phone who reports [...] documented as of this encounter Care Teams Supervisor Park Workers Relationship Specialty Start Date End Date Miranda Maravilla DO [address] [place] [address] PCP - General Family Medicine 09/26/19 documented as of this encounter
--- OUTSIDE RECORDS SUMMARY | 2024-05-06 07:56 | XMS_ITS | Encounter Summary ---
Author Organization [employer] Address [address] [facility] [address] [place] [address] Care Team Providers Care Survey Associate Name Role Phone Miranda Maravilla DO Primary Care Provider + [phone] Reason for Visit * Reason Comments Med Refill Encounter Details Date Type Department Care Team ([facility] st Contact Info) Description 04/11/2024 Refill [facility] [address] [place] [address] Miranda Maravilla DO [address] [place], [place] [phone] Pain Social History Tobacco Use Types Packs/Day [...] documented as of this encounter Care Teams Survey Associate Relationship Specialty Start Date End Date Miranda Maravilla DO [address] [place] [phone] PCP - General Family Medicine 09/26/19 documented as of this encounter
--- OUTSIDE RECORDS SUMMARY | 2024-05-06 07:56 | XMS_ITS | Encounter Summary ---
Author Organization [employer] Address 75 [facility] 7t [place] [address] Care Team Providers Care Logistic Manager Name Role Phone Miranda Maravilla DO Primary Care Provider + [phone] Reason for Visit * Reason Comments Med Refill Encounter Details Date Type Department Care Team ([facility] st Contact Info) Description 06/11/2023 Refill [facility] MED[facility] [address] [place] [address] Miranda Maravilla DO [address] [place], [place] [phone] Pain Social History Tobacco Use Types Packs/Day [...] the past 12 months, has t he [employer] gas, oil or water company threatened to [...] documented as of this encounter Care Teams Logistic Manager Relationship Specialty Start Date End Date Miranda Maravilla DO [address] [place] [phone] PCP - General Family Medicine 09/26/19 documented as of this encounter
--- OUTSIDE RECORDS SUMMARY | 2024-05-06 07:57 | XMS_ITS | Encounter Summary ---
Author Organization [employer] Address [address] [facility] [address] [place] [address] Care Team Providers Care Assistant Laboratory Director Name Role Phone Miranda Maravilla DO Primary Care Provider + [phone] Reason for Visit * Reason Comments Cough Encounter Details Date Type Department Care Team ([facility] st Contact Info) Description 04/29/2024 6:20 PM EST Office Visit [facility] [address] [place], [place] [phone] Oilver Bates MD [address] [place], [place] [phone] Viral URI Social History Tobacco Use Types [...] Routine 04/29/2024 7:14 PM EST Viral URI RESPIRATORY VIRAL PANEL PCR Routine 04/29/2024 12:00 AM EST Viral URI documented in this encounter Results * XR Chest 2 Views (04/30/2024 11:21 AM EST) Anatomical Region Laterality Modality Chest Radiographic Maribel ging 04/30/2024 11:2 1 AM EST Narrative 04/30/2024 1:31 PM EST ?[facility] ?[address] ?[place] [address] ?XRay Report ? Signed ? Patient: Brandon Lang ?MR#: [id number] ? : 1975 ?Acct:[id number] ? Age/Sex: 49 / F ?ADM Date: 01/22/25 ? Loc: HO.HHCX ? Attending Dr: Oliver Bates MD ? Ordering Physician: Oliver Bates MD ?? Date of Service: 04/30/24 ?? Procedure(s): XR chest 2V ?? Accession Number(s): [id number] ? cc: Oliver Bates MD ? EXAMINATION: [...] DD/ 1121 ? TD/TT: 04/30/24 1200 ? Watch Assembly Instructor: MSM ? Procedure Note Mini Pinto - 04/30/2024 [place] [address] XRay Report Signed Patient: Brandon Lang YMR#: [id number] : 1975Acct:[id number] Age/Sex: 49 / FADM Date: 04/30/24 Loc: HO.HHCX Attending Dr: Oliver Bates MD Ordering Physician: Oliver Bates MD Date of Service: 04/30/24 Procedure(s): XR chest 2V Accession Number(s): [id number] cc: Oliver Bates MD EXAMINATION: XR CHEST [...] 04/30/24 1328 DD/ 1121 TD/TT: 04/30/24 1200 Watch Assembly Instructor: VIOLETTE Oliver Bates MD IMG XR PROCEDURES Final Result * POCT Rapid Influenza B ONTIVEROS ID NOW (04/29/2024 7:14 PM EST) Influenza B Negative Negative, Indeterminate [facility] QC Media Lot # [id number] [facility] Lot# Expiration Date [facility] Swab 04/29/2024 7:14 PM EST Oliver Bates MD POINT OF CARE TEST ENTER/EDIT OR DERABLES Final Result Performing Organization Address [facility] de Phone Number [facility] [address] [place] [phone] * POCT Rapid Influenza A ONTIVEROS ID NOW (04/29/2024 7:14 PM EST) Influenza A Negative Negative, Indeterminate [facility] QC Media Lot # [id number] [facility] Lot# Expiration Date [facility] Swab 04/29/2024 7:14 PM EST us Oliver Bates MD POINT OF CARE TEST ENTER/EDIT OR DERABLES Final Result Performing Organization Address [facility] Co de Phone Number [facility] [address] [place] [phone] * POCT Rapid Covid-19 BinaxNOW (04/29/2024 7:14 PM EST) [facility] Rapid COVID Ag Negative QC Media Lot # [id number] Lot# Expiration Date [id number] Swab 04/29/2024 7:14 PM EST Oliver Bates MD POINT OF CARE TEST ENTER/EDIT OR DERABLES Final Result * Respiratory Viral Panel PCR (04/29/2024 12:00 AM EST) [facility] Adenovirus PCR Not Detected Not Detect. [facility] Bordetella pertussis PCR Not Detected Not Detect. [facility] Comment:Interpret results wi th caution. If B. pertussis isspecifically suspected, additional testing using analternate method is recommended. Bordetella parapertussis PCR Not Detected Not Detect. [facility] Chlamydia pneumoniae PCR Not Detected Not Detect. [facility] Coronavirus 229E PCR Not Detected Not Detect. [facility] Coronavirus HKU1 PCR Not Detected Not Detect. [facility] Coronavirus NL63 PCR Not Detected Not Detect. [facility] Coronavirus OC43 PCR Not Detected Not Detect. [facility] SARS-CoV-2 PCR Not Detected Not Detect. [facility] Comment:SARS-CoV-2 not detec michael by real-time RT-PCR.Note: If clinical suspicion for Sars-CoV-2 is high, continueto maintain precautions and consider repeat testing.Test results should be interpreted in the context ofclinical findings and other laboratory data.Rare polymorphisms exist that could lead to false-negativeor false-positive results. If results do not match theclinical findings, additional testing should be considered.Results reported to [facility].This test has been authorized by the FDA under the EmergencyUse Authorization (EUA) for use by authorized laboratories. Influenza A PCR Not Detected Not Detect. [facility] Influenza B PCR Not Detected Not Detect. [facility] Human metapneumovirus PCR Not Detected Not Detect. [facility] Rhino/Enterovirus PCR Not Detected Not Detect. [facility] Mycoplasma pneumoniae PCR Not Detected Not Detect. [facility] Parainfluenza 1 PCR Not Detected Not Detect. [facility] Parainfluenza 2 PCR Not Detected Not Detect. [facility] Parainfluenza 3 PCR Not Detected Not Detect. [facility] Parainfluenza 4 PCR Not Detected Not Detect. [facility] RSV PCR Not Detected Not Detect. [facility] Resp Panel NA Note See Note [facility] Comment:All results must be correlated with clinical findings.Negative results should not be used as the sole basis fordiagnosis, treatment, or other management decisions.A negative result does not exclude the possibility of viralor bacterial infection. Negative results may occur from thepresence of sequence variants in the region targeted by theassay, the presence of inhibitors, an infection caused by anorganism not detected by the panel, or lower respiratorytract infections that are not detected by a nasopharyngealswab specimen. Test results may also be affected byconcurrent antiviral/antibacterial therapy or levels oforganism in the specimen that are below the limit ofdetection for this test.This assay is performed by Multiplexed PCR, utilizing [employer]. 04/29/2024 04/29/2024 us Oliver Bates MD LAB BLOOD ORDERABLES Final Resul t [facility] [address] [place] [address] [phone] documented in this encounter Visit Diagnoses Diagnosis Viral URI Acute upper respiratory infections of unspecified site documented in this encounter Additional Health Concerns Assessment Noted Time PHQ-9 Depression Total Score: 7 08/20/19 24 10:35 AM EDT documented as of this encounter Care Teams Assistant Laboratory Director Relationship Specialty Start Date End Date Miranda Maravilla DO [address] [place] [phone] PCP - General Family Medicine 09/26/19 documented as of this encounter
--- OUTSIDE RECORDS SUMMARY | 2024-05-06 07:57 | XMS_ITS | Encounter Summary ---
Author Organization [employer] Address 75 [facility] [address] [address] Care Team Providers Care Insulation Installer Name Role Phone Miranda Maravilla DO Primary Care Provider + [phone] Reason for Visit * Reason Comments Med Refill Encounter Details Date Type Department Care Team ([facility] st Contact Info) Description 07/22/2022 Refill [facility] MEDICINE [address] [place] [address] Miranda Maravilla DO [address] [place], [place] [phone] Social History Tobacco Use Types Packs/Day Years [...] documented as of this encounter Care Teams Insulation Installer Relationship Specialty Start Date End Date Miranda Maravilla DO [address] [place] [address] PCP - General Family Medicine 09/26/19 documented as of this encounter
--- OUTSIDE RECORDS SUMMARY | 2024-05-06 07:57 | XMS_ITS | Encounter Summary ---
Author Organization [employer] Address [address] [facility] [address] [place] [address] Care Team Providers Care Credit Collections Manager Name Role Phone Miranda Maravilla DO Primary Care Provider + [phone] Encounter Details Date Type Department Care Team (Latest Contact Info) Description 04/18/2024 3:00 PM EST Office Visit [facility] MEDICINE [address] [place], [place] [phone] Eusebia Valdez MD [address] [place], [place] [phone] Onychodystrophy (Primary Dx) Social History Tobacco Use [...] documented as of this encounter Care Teams Credit Collections Manager Relationship Specialty Start Date End Date Miranda Maravilla DO [address] [place] [phone] PCP - General Family Medicine 09/26/19 documented as of this encounter
--- OUTSIDE RECORDS SUMMARY | 2024-05-06 07:57 | XMS_ITS | Encounter Summary ---
Author Organization [employer] Address [address] [facility] 7t [place] [address] Care Team Providers Care College Specialist Name Role Phone Miranda Maravilla DO Primary Care Provider + [phone] Reason for Visit * Reason Comments Cough Nasal Congestion Encounter Details Date Type Department Care Team ([facility] st Contact Info) Description 04/22/2024 11:00 AM EST Office Visit [facility] [address] [place] [address] Madhu Anthony MD [address] [place] [address] Moderate persistent asthma with acute exacerbation (Primary [...] Brandon Lang is a 49 y.o. female. 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 HPI Yesterday Brandon had onset of productive cough, wheezing, SOB, tactile fever. No n/v/d. Taking p.o. well. Taking Tylenol, albuterol via neb q4h, Breo Ellipta. Lives with parents. Mother has similar. LMP=1 year ago. Mother states missed menses due to chemotherapy for breast cancer. She is not sexually active. Never smoked. Stopped going to [employer] when she started chemotherapy; finished chemo and radiation last week. Patient Active Problem List Diagnosis Allergic rhinitis Cholelithiasis Chronic gastroesophageal reflux disease Intermittent explosive disorder Moderate intellectual disability Moderate persistent asthma BMI 40.0-44.9, adult ([facility]) GEORGE (obstructive sleep apnea) Oropharyngeal dysphagia Scoliosis Obesity hypoventilation syndrome ([facility]) Depressive disorder Chronic constipation History of COVID-19 Pulmonary hypertension ([facility]) Supplemental oxygen dependent Fatty liver Swelling of both lower extremities Healthcare maintenance Cancer of left breast, stage 3 ([facility]) Tinea pedis of both feet The [...] NOW Rapid Molecular) (04/22/2024 12:00 PM EST) [facility] Influenza B Negative Negative, Indeterminate [facility] Swab 04/22/2024 12:0 0 PM EST Madhu Anthony MD POINT OF CARE TEST ENTER/EDIT OR DERABLES Final Result Performing Organization Address [facility] Co de Phone Number [facility] [address] [place] [phone] * Influenza A (ID NOW Rapid Molecular) (04/22/2024 12:00 PM EST) [facility] Influenza A Negative Negative, Indeterminate [facility] Swab 04/22/2024 12:0 0 PM EST Madhu Anthony MD POINT OF CARE TEST ENTER/EDIT OR DERABLES Final Result Performing Organization Address [facility] Co de Phone Number [facility] [address] [place] [phone] * POCT Rapid COVID Ag (04/22/2024 12:00 PM EST) Pathologist [facility] Rapid COVID Ag Negative [facility] Swab 04/22/2024 12:0 0 PM EST us Madhu Anthony MD POINT OF CARE TEST ENTER/EDIT OR DERABLES Final Result [facility] [address] [place] [phone] documented in this encounter Visit Diagnoses Diagnosis Moderate persistent asthma with acute exacerbation- Primary Viral URI Acute upper respiratory infections of unspecified site documented in this encounter Additional Health Concerns Assessment Noted Time PHQ-9 Depression Total Score: 7 08/20/19 24 10:35 AM EDT documented as of this encounter Care Teams College Specialist Relationship Specialty Start Date End Date Miranda Maravilla DO [address] [place] [address] PCP - General Family Medicine 09/26/19 documented as of this encounter
--- OUTSIDE RECORDS SUMMARY | 2024-05-06 07:57 | XMS_ITS | Encounter Summary ---
Author Organization [employer] Address 75 [facility] [address] [place] [address] Care Team Providers Care Manager Planning Name Role Phone Miranda Maravilla DO Primary Care Provider + [phone] Reason for Visit * Reason Comments Med Refill Encounter Details Date Type Department Care Team ([facility] st Contact Info) Description 05/18/2022 Refill [facility] MEDICINE [address] [place] [address] Miranda Maravilla DO [address] [place], [place] [phone] Social History Tobacco Use Types Packs/Day Years [...] as of this encounter Care Teams Manager Planning Relationship Specialty Start Date End Date Miranda Maravilla DO [address] [place] [address] PCP - General Family Medicine 09/26/19 documented as of this encounter
--- OUTSIDE RECORDS SUMMARY | 2024-05-06 07:57 | XMS_ITS | Encounter Summary ---
Author Organization [employer] Address 75 [facility] 7t [place] [address] Care Team Providers Care Inpatient Nursing Aide Name Role Phone Miranda Maravilla Primary Care Provider + [phone] Encounter Details Date Type Department Care Team (Late st Contact Info) Description 04/25/2024 Orders Only [facility] [address] [place], [place] [phone] Provider, MD Jo Ann Social History Tobacco [...] documented as of this encounter Care Teams Inpatient Nursing Aide Relationship Specialty Start Date End Date Miranda Maravilla DO [address] [place] [address] PCP - General Family Medicine 09/26/19 documented as of this encounter
--- OUTSIDE RECORDS SUMMARY | 2024-05-06 07:57 | XMS_ITS | Clinical Summary ---
Author Organization [employer] Address [address] [place] [address] Care Team Providers Care Fire Protection Specialist Name Role Phone Miranda Maravilla DO Primary Care Provider + [phone] Allergies No known active allergies Medications ARIPiprazole [...] Description 04/29/2024 6:20 PM EST Office Visit [facility] [address] [address] Oliver Bates MD Viral URI 04/25/2024 Orders Only [facility] [address] [place] [address] ProviderJo Ann MD 04/22/2024 11:00 AM EST Office Visit [facility] [place] [address] [place] [address] Madhu Anthony MD Moderate persistent asthma with acute exacerbation (Primary Dx); Viral URI 04/18/2024 3:00 PM EST Office Visit [facility] [address] [place] [address] Eusebia Valdez MD Onychodystrophy (Primary Dx) 04/18/2024 Travel 04/14/2024 12:00 PM EST Office Visit [facility] [place] [address] Miranda Maravilla DO Epigastric pain (Primary Dx); Fatty liver; Abnormal finding of blood chemistry, unspecified; Body mass index (BMI) 40.0-44.9, adult (CMS/[facility]); Mixed hyperlipidemia; Encounter for immunization 04/14/2024 Orders Only GENERIC EXTERNAL DATA DEPARTMENT Provider, Generic External Data 04/14/2024 Travel 04/11/2024 Refill [facility] [place] [place] [address] Miranda Maravilla DO Pain 04/08/2024 Telephone [facility] [address] [place] [address] Miranda Maravilla DO Nurse Triage 04/04/2024 Refill [facility] [address] [place] [address] Miranda Maravilla, 03/14/2024 Telephone [facility] [place] [place] [address] Conchita Durham, RN Nebulizer physician order 03/12/2024 Refill [facility] [address] [place] [address] Miranda Maravilla, 03/04/2024 Refill [facility] [place] [place] [address] Miranda Maravilla, 02/15/2024 Refill [facility] [place] [place] [address] Miranda Maravilla DO Pain 02/12/2024 Orders Only [facility] External Provider, [facility] from Last 3 Months Immunizations Name Administration [...] Routine 04/29/2024 12:00 AM EST Viral URI POCT INFLUENZA B [...] AM EST Narrative 04/30/2024 1:31 PM EST ?[facility] ?[address] ?[place] [address] ?XRay Report ? Signed ? Patient: Brandon Lang ?MR#: [id number] ? : 1975 ?Acct:[id number] ? Age/Sex: 49 / F ?ADM Date: 01/22/25 ? Loc: HO.HHCX ? Attending Dr: Oliver Bates MD ? Ordering Physician: Oliver Bates MD ?? Date of Service: 04/30/24 ?? Procedure(s): XR chest 2V ?? Accession Number(s): [id number] ? cc: Oliver Bates MD ? EXAMINATION: [...] DD/ 1121 ? TD/TT: 04/30/24 1200 ? Daycare Worker: MSM ? Procedure Note Donamie, Mini - 04/30/[address] [address] XRay Report Signed Patient: Brandon Lang YMR#: [id number] : 1975Acct:[id number] Age/Sex: 49 / FADM Date: 04/30/24 Loc: HO.HHCX Attending Dr: Oliver Bates MD Ordering Physician: Oliver Bates MD Date of Service: 04/30/24 Procedure(s): XR chest 2V Accession Number(s): [id number] cc: Oliver Bates MD EXAMINATION: XR CHEST [...] 04/30/24 1328 DD/ 1121 TD/TT: 04/30/24 1200 Daycare Worker: VIOLETTE Oliver Bates MD IMG XR PROCEDURES Final Result * POCT Rapid Influenza B ONTIVEROS ID NOW (04/29/2024 7:14 PM EST) Only the most recent of2 resultswithin the time period is included. Influenza B Negative Negative, Indeterminate [facility] QC Media Lot # [id number] [facility] Lot# Expiration Date [facility] Swab 04/29/2024 7:14 PM EST Oliver Bates MD POINT OF CARE TEST ENTER/EDIT OR DERABLES Final Result Performing Organization Address [facility] Co de Phone Number [facility] [address] [place] [phone] * POCT Rapid Influenza A ONTIVEROS ID NOW (04/29/2024 7:14 PM EST) Only the most recent of2 resultswithin the time period is included. Influenza A Negative Negative, Indeterminate [facility] QC Media Lot # [id number] [facility] Lot# Expiration Date [facility] Swab 04/29/2024 7:14 PM EST Oliver Bates MD POINT OF CARE TEST ENTER/EDIT OR DERABLES Final Result Performing Organization Address [facility] Co de Phone Number [facility] [address] [place] [phone] * POCT Rapid Covid-19 BinaxNOW (04/29/2024 7:14 PM EST) Only the most recent of2 resultswithin the time period is included. Pathologist [facility] Rapid COVID Ag Negative QC Media Lot # [id number] Lot# Expiration Date [id number] Swab 04/29/2024 7:14 PM EST Oliver Bates MD POINT OF CARE TEST ENTER/EDIT OR DERABLES Final Result * Respiratory Viral Panel PCR (04/29/2024 12:00 AM EST) [facility] Adenovirus PCR Not Detected Not Detect. [facility] Bordetella pertussis PCR Not Detected Not Detect. [facility] Comment:Interpret results wi th caution. If B. pertussis isspecifically suspected, additional testing using analternate method is recommended. Bordetella parapertussis PCR Not Detected Not Detect. [facility] Chlamydia pneumoniae PCR Not Detected Not Detect. [facility] Coronavirus 229E PCR Not Detected Not Detect. [facility] Coronavirus HKU1 PCR Not Detected Not Detect. [facility] Coronavirus NL63 PCR Not Detected Not Detect. [facility] Coronavirus OC43 PCR Not Detected Not Detect. [facility] SARS-CoV-2 PCR Not Detected Not Detect. [facility] Comment:SARS-CoV-2 not detec michael by real-time RT-PCR.Note: If clinical suspicion for Sars-CoV-2 is high, continueto maintain precautions and consider repeat testing.Test results should be interpreted in the context ofclinical findings and other laboratory data.Rare polymorphisms exist that could lead to false-negativeor false-positive results. If results do not match theclinical findings, additional testing should be considered.Results reported to CHARLES RAMOS.This test has been authorized by the FDA under the EmergencyUse Authorization (EUA) for use by authorized laboratories. Influenza A PCR Not Detected Not Detect. [facility] Influenza B PCR Not Detected Not Detect. [facility] Human metapneumovirus PCR Not Detected Not Detect. [facility] Rhino/Enterovirus PCR Not Detected Not Detect. [facility] Mycoplasma pneumoniae PCR Not Detected Not Detect. [facility] Parainfluenza 1 PCR Not Detected Not Detect. [facility] Parainfluenza 2 PCR Not Detected Not Detect. [facility] Parainfluenza 3 PCR Not Detected Not Detect. [facility] Parainfluenza 4 PCR Not Detected Not Detect. [facility] RSV PCR Not Detected Not Detect. [facility] Resp Panel NA Note See Note H [facility] Comment:All results must be correlated with [...] assay is performed by Multiplexed PCR, utilizing [employer] Film Array. 04/29/2024 04/29/2024 Oliver Bates MD LAB BLOOD ORDERABLES Final Resul t [facility] [address] [place] [phone] * Dermatopathology Report (04/18/2024 2:57 PM EST) Historical Provider LAB BLOOD ORDERABLES Barby l Result * Vitamin D, 25-Hydroxy, Total, Immunoassay (04/14/2024 12:38 PM EST) Vitamin D 25-OH Total 42.5 >30 ng/mL [facility] Comment:Health Based Referen ce Values*< 20 ng/mL Fakfdynrm48-66 ng/mL Insufficient> 30 ng/mL Sufficient*Sarah MENDEZ. N [...] DO LAB BLOOD ORDERABLES Final R esult [facility] [address] [place] [address] [phone] * (ABNORMAL) CBC auto differential (04/14/2024 12:38 PM EST) White Blood Count 5.0 4.8 - 10.8 X10*3/uL [facility] Red Blood Count 4.70 4.20 - 5.50 X10*6/uL [facility] Hemoglobin 12.7 12.0 - 16.0 g/dl [facility] Hematocrit 40.7 37.0 - 47.0 % [facility] Mean Corpuscular Volume 86.6 80.0 - 98.0 fL [facility] Mean Corpuscular Hemoglobin 27.0 27.0 - 33.0 pg [facility] Mean Corpuscular HGB Conc 31.2 31.0 - 35.0 g/dl [facility] Red Cell Distribution Width 17.2(H) 11.0 - 16.0 % [facility] Platelet Count 155(L) 160 - 400 X10*3/uL [facility] Mean Platelet Volume 11.1 9.4 - 12.3 fL [facility] Neutrophils Percent Auto 73.6(H) 45 - 73 % [facility] Imm Gran Pct Auto 0.4 0.0 - 0.4 % [facility] Lymphocytes Percent Auto 11.3(L) 20 - 40 % [facility] Monocytes Percent Auto 8.7 2 - 11 % [facility] Eosinophils Percent Auto 5.6(H) 0 - 4 % [facility] Basophils Percent Auto 0.4 0 - 2 % [facility] NRBC Pct Auto 0.0 0.0 - 0.2 /100WBC [facility] Neutrophils Absolute Auto 3.7 2.0 - 8.3 x10*3/uL [facility] Imm Gran Abs Auto 0.02 0.00 - 0.03 X10*3/uL [facility] Lymphocytes Absolute Auto 0.6(L) 1.2 - 4.9 X10*3/uL [facility] Monocytes Absolute Auto 0.4 0.1 - 1.2 X10*3/uL [facility] Eosinophils Absolute Auto 0.3 0.0 - 0.4 X10*3/uL [facility] Basophils Absolute Auto 0.0 0.0 - 0.2 X10*3/uL [facility] NRBC Abs Auto 0.000 0.0 - 0.012 X10*3/uL [facility] 04/14/2024 12:3 8 PM EST 04/14/2024 1:44 PM EST us Generic External Data Provider LAB BLOOD ORDERAB LES Final Result [facility] [address] [place] [phone] * Cancer antigen 27.29 (04/14/2024 12:38 PM EST) CA 27.29 16 <38 U/mL [facility] Comment:This test was perfor med using the SiemensChemiluminescent method. Values obtained fromdifferent assay methods cannot be usedinterchangeably. CA 27.29 levels, regardless ofvalue, should not be interpreted as absoluteevidence of the presence or absence of disease.The CA 27.29 result may be increased on average 5- 10%,relative to results previously obtained with thismethod due to a recent calibrator adjustment made inOcto2023 by the reagent client architect. In the lowrange for this assay (<38 U/mL), this increase may begreater than 20%. Serially monitored results shouldalways be used in conjunction with other diagnosticprocedures, including clinical evaluation.THIS TEST WAS PERFORMED AT:[facility] [address] [id number] ROSE MD 04/14/2024 12:3 8 PM EST 04/14/2024 1:44 PM EST us Generic External Data Provider LAB BLOOD ORDERAB LES Final Result Performing Organization Address [facility] Co de Phone Number [facility] [address] [place] [phone] * Alpha-Fetoprotein, Tumor Marker (04/14/2024 12:38 PM EST) Alpha Fetoprotein 3.1 ng/mL [facility] Comment:Reference Range: <6. 1The use of AFP as a tumor marker in females is not recommended.This test was performed using the Jessica Coulterchemiluminescent method. Values obtained fromdifferent assay methods cannot be usedinterchangeably. AFP levels, regardless ofvalue, should not be interpreted as absoluteevidence of the presence or absence of disease.THIS TEST WAS PERFORMED AT:[facility] [address] [id number] ROSE MD Blood Venous blood specimen / Unknown 04/14/2024 12:38 PM EST 04/14/2024 1:44 PM EST Miranda Maravilla DO LAB BLOOD ORDERABLES Final R esult Performing Organization Address [facility] Co de Phone Number [facility] [address] [place] [phone] * (ABNORMAL) CBC (04/14/2024 12:38 PM EST) Pathologist [facility] White Blood Count 4.9 4.8 - 10.8 X10*3/uL [facility] Red Blood Count 4.69 4.20 - 5.50 X10*6/uL [facility] Hemoglobin 12.5 12.0 - 16.0 g/dl [facility] Hematocrit 40.6 37.0 - 47.0 % [facility] Mean Corpuscular Volume 86.6 80.0 - 98.0 fL [facility] Mean Corpuscular Hemoglobin 26.7(L) 27.0 - 33.0 pg [facility] Mean Corpuscular HGB Conc 30.8(L) 31.0 - 35.0 g/dl [facility] Red Cell Distribution Width 17.2(H) 11.0 - 16.0 % [facility] Platelet Count 161 160 - 400 X10*3/uL [facility] Mean Platelet Volume 11.3 9.4 - 12.3 fL [facility] NRBC Pct Auto 0.0 0.0 - 0.2 /100WBC [facility] NRBC Abs Auto 0.000 0.0 - 0.012 X10*3/uL [facility] Blood Venous blood specimen / Unknown 04/14/2024 12:38 PM EST 04/14/2024 1:44 PM EST Miranda Maravilla DO LAB BLOOD ORDERABLES Final R esult Performing Organization Address City/[facility]/ZIP Co de Phone Number [facility] [address] [place] [phone] * Lipase (04/14/2024 12:38 PM EST) Lipase 31 8 - 78 U/L [facility] Blood Venous blood specimen / Unknown 04/14/2024 12:38 PM EST 04/14/2024 1:44 PM EST Miranda Maravilla DO LAB BLOOD ORDERABLES Final R esult [facility] [address] [place] [phone] * Hemoglobin A1c (04/14/2024 12:38 PM EST) Hemoglobin A1c 5.3 <6.0 % [facility] Comment:Hemoglobin A1C Refer ence Range Adults: 4.8 - 6.0 % Non diabetic: < 6.0 % Goal: < 7.0 %Additional Action Suggested: > 8.0 %Note: Hemoglobin A1c results are invalid for patients with abnormal amounts of HbF. Blood transfusions may impact the HbA1c concentration in the patient sample. Estimated Average Glucose 105 mg/dL [facility] Comment:eAG = Estimated ave rage glucose which is %A1C expressed asaverage glucose, using the formula of the U2T-KqlpudcAsswdji Glucose study (ADAG), Diabetes Care, Vol.31,#8,Nov. 2007 Blood Venous blood specimen / Unknown 04/14/2024 12:38 PM EST 04/14/2024 1:44 PM EST us Miranda Maravilla DO LAB BLOOD ORDERABLES Final R esult Performing Organization Address [facility] Co de Phone Number [facility] [address] [place] [phone] * Amylase (04/14/2024 12:38 PM EST) Amylase 57 28 - 100 U/L [facility] Blood Venous blood specimen / Unknown 04/14/2024 12:38 PM EST 04/14/2024 1:44 PM EST Miranda Maravilla DO LAB BLOOD ORDERABLES Final R esult Performing Organization Address [facility] Co de Phone Number [facility] [address] [place] [phone] * Hepatic Function Panel (04/14/2024 12:38 PM EST) Bilirubin, Direct 0.1 0.0 - 0.5 mg/dL [facility] Blood Venous blood specimen / Unknown 04/14/2024 12:38 PM EST 04/14/2024 1:44 PM EST Miranda Renita LAB BLOOD ORDERABLES Final R esult Performing Organization Address City/[facility] Co de Phone Number [facility] [address] [place] [phone] * (ABNORMAL) Lipid Panel, Standard (04/14/2024 12:38 PM EST) Triglycerides 82 <150 mg/dL [facility] Comment:Desirable Triglyceri de: less than 150 mg/dLBorderline High Triglyceride 150-199 mg/dLHigh Triglyceride: 200-499 mg/dLVery High Triglyceride: greater than or equal to 5OO mg/dL Cholesterol 199 <200 mg/dL [facility] Comment:Desirable Cholestero l: less than 200 mg/dLBorderline High Cholesterol: 200-239 mg/dLHigh Cholesterol: greater than 239 mg/dL LDL Cholesterol Calculated 104(H) <100 mg/dL [facility] Comment:Desirable LDL: less than 100 mg/dLNear Optimal/Above Optimal LDL: 110- 129 mg/dLBorderline High LDL: 130-159 mg/dLHigh LDL: 160-189 mg/dLVery High LDL: greater than or equal to 190 mg/dL HDL Cholesterol 79 >40 mg/dL [facility] Comment:Desirable HDL: great er than 40 mg/dL Note: This HDL assay may give artificially low results in patients with liver disease. Blood Venous blood specimen / Unknown 04/14/2024 12:38 PM EST 04/14/2024 1:44 PM EST Miranda Maravilla DO LAB BLOOD ORDERABLES Final R esult Performing Organization Address City/[facility]/ZIP Co de Phone Number [facility] [address] [place] [phone] * (ABNORMAL) Comprehensive Metabolic Panel (04/14/2024 12:38 PM EST) Sodium 142 135 - 145 mmol/L [facility] Potassium 4.0 3.3 - 5.1 mmol/L [facility] Chloride 105 96 - 108 mmol/L [facility] Carbon Dioxide 31(H) 22 - 29 mmol/L [facility] Anion Gap 10(L) 12 - 20 [facility] Urea Nitrogen (BUN) 11 9 - 16 mg/dL [facility] Creatinine, Serum 0.63 0.5 - 1.4 mg/dL [facility] Estimated Glomerular Filt Rate >60 [facility] Comment:Chronic Kidney Disea se: Estimated GFR < 60 mL/min/1.42w4Xuvsul Kidney Disease: Estimated GFR < 15 mL/min/1.73m2 Glucose 119(H) 60 - 115 mg/dL [facility] Calcium 9.5 8.4 - 10.2 mg/dL [facility] Bilirubin, Total 0.4 0.0 - 1.0 mg/dL [facility] Aspartate Amino Transferase 23 5 - 31 U/L [facility] Alanine Aminotransferase 23 0 - 31 U/L [facility] Total Protein 7.2 6.5 - 8.0 g/dL [facility] Albumin Level 3.8 3.5 - 5.0 g/dL [facility] Alkaline Phosphatase 85 39 - 117 U/L [facility] 04/14/2024 12:3 8 PM EST 04/14/2024 1:44 PM EST us Generic External Data Provider LAB BLOOD ORDERAB LES Final Result [facility] [address] [place] [address] [phone] * PET/CT Bone Skull Base to Mid Thigh (02/12/2024 11:30 AM EST) Anatomical Region Laterality Modality Body Computed Tomogra phy 02/12/2024 11:3 0 AM EST Narrative 02/20/2024 2:08 PM EST ? [facility] ?[address] ?[place] [address] ? PET Report ? Signed ? Patient: Rickey,Brandon Y ?MR#: [id number] ? : 1975 ?Acct:[id number] ? Age/Sex: 49 / F ?ADM Date: 02/12/24 ? Loc: HO.PET ? Attending Dr: Christiana Romero MD ? Ordering Physician: Christiana Romero MD ?? Date of Service: 02/12/24 ?? Procedure(s): PET CT fusion skull to thigh ?? Accession Number(s): [id number] ? cc: Miranda Maravilla DO; Christiana Romero [...] ??Debbi Velasquez MD ??02/20/2024 02:05 PM EST ?? RP ? Dictated By: ?Debbi Velasquez MD ? Signed By: ?<Electronically signed by Debbi Velasquez MD in OV> ? 02/20/24 1405 ? DD/ 1130 ? TD/TT: 02/12/24 1315 ? Daycare Worker: PK ? Procedure Note Mini Pinto - 02/20/2024 [id number] [place] [address] PET Report Signed Patient: Brandon Lang YMR#: [id number] : 1975Acct:[id number] Age/Sex: 49 / FADM Date: 02/12/24 Loc: HO.PET Attending Dr: Christiana Romero MD Ordering Physician: Christiana Romero MD Date of Service: 02/12/24 Procedure(s): PET CT fusion skull to thigh Accession Number(s): [id number] cc: Miranda Maravilla DO; Christiana Romero MD [...] 02/20/24 1405 DD/ 1130 TD/TT: 02/12/24 1315 Daycare Worker: [facility] External Provider IMG CT PROCEDURES Final Result * (ABNORMAL) Cologuard?? colon cancer screening (03/04/2023 11:20 PM EST) Cologuard Result Positive( A) Negative 03/12/2023 10:35 AM EST [facility] (CLIA #:[id number]) Comment: POSITIVE TEST RESULT. A positive Cologuard [...] (Elliot Dye al, N Engl J Med 2014;370(14):7118-8362.) Cologuard may produce a false negative or false positive result (no colorectal cancer or precancerous polyp present at colonoscopy follow up). A negative Cologuard test result does not guarantee the absence of CRC or advanced adenoma (pre-cancer). The current Cologuard screening interval is every 3 years. ([place] [employer] Society and U.S. Multi-Society Task Force). Cologuard performance data in a 10,000 patient pivotal study using colonoscopy as the reference method can be accessed at the following location: www.[employer]/results. Additional description of the Cologuard test process, warnings and precautions can be found at [email or web address]. Stool specimen (specimen) 03/04/2023 11:20 PM EST 03/06/2023 5:06 PM EST Miranda Maravilla DO LAB MOLECULAR DIAGNOSTICS OR DERABLES Final Result [facility] (CLIA #:[id number]) [address] [place] [id number], * HEPATITIS C AB W/REFL TO HCV RNA, QN, PCR (10/24/2019 9:16 AM EDT) HEPATITIS C ANTIBODY NON-REACT QUIANA NON-REACT QUIANA [facility] INDEX 0.02 <1.00 [facility] Comment: ?? HCV antibody was non-reactive. There is no laboratory ?? evidence of HCV infection. ?? In most cases, no further action is required. However, if recent HCV exposure is suspected, a test for HCV RNA (test code 68582) is suggested. ?? For additional information please refer to http://education.[employer]/faq/PNY81b7 (This link is being provided for informational/ educational purposes only.) ?? HEPATITIS C ANTIBODY NON-REACT QUIANA NON-REACT QUIANA [facility] INDEX 0.02 <1.00 [facility] Comment: ?? HCV antibody was non-reactive. There is no laboratory ?? evidence of HCV infection. ?? In most cases, no further action is required. However, if recent HCV exposure is suspected, a test for HCV RNA (test code 82916) is suggested. ?? For additional information please refer to http://[employer]/faq/VZL34t5 (This link is being provided for informational/ educational purposes only.) ?? HEPATITIS C ANTIBODY NON-REACT QUIANA NON-REACT QUIANA [facility] INDEX 0.02 <1.00 [facility] Comment: ?? HCV antibody was non-reactive. There is no laboratory ?? evidence of HCV infection. ?? In most cases, no further action is required. However, if recent HCV exposure is suspected, a test for HCV RNA (test code 97153) is suggested. ?? For additional information please refer to http://[employer]/faq/GZF18b7 (This link is being provided for informational/ educational purposes only.) ?? 10/24/2019 9:16 AM EDT Miranda Maravilla DO HISTORICAL/NON ORDERABLE LAB S Final Result [facility] [address] * HIV 1/2 ANTIGEN/ANTIBODY,FOURTH GENERATION W/RFL (10/24/2019 9:16 AM EDT) HIV-1/2 ANTIGEN AND ANTIBODIES, 4TH GENERATION W/ REFLEX NON-REACT QUIANA NON-REACT QUIANA [facility] [facility] Comment: HIV-1 antigen and HIV-1/HIV-2 [...] ? For additional information please refer to http://[facility]/faq/BPI864 (This link is being provided for informational/ [...] ? For additional information please refer to http://[employer]/faq/TTE491 (This link is being provided for informational/ [...] ? For additional information please refer to http://[employer]/faq/ROE518 (This link is being provided for informational/ educational purposes only.) ? The performance of this assay has not been clinically validated in patients less than 2 years old. ?? 10/24/2019 9:16 AM EDT us Miranda Maravilla DO LAB BLOOD ORDERABLES Final R esult [facility] [address] from Last 3 Months or Most Recently Relevant to Health Maintenance [place] [address] [address] [place] [address] STANDARD MEDICARE Advance Directives Documents on File Type Date Recorded Patient Investments Manager Expl anation Advance Directives and Livin g Will 06/13/2023 3:52 PM HCP Form Care Teams Fire Protection Specialist Relationship Specialty Start Date End Date Miranda Maravilla DO [address] [place] [address] PCP - General Family Medicine 09/26/19
== END 2024-05-06 07:55 | disposition home or self-care (01) ==
LOC: HO.US 07:54
PROVIDERS: PCP Family Medicine; Referring Provider Surgery; Visit Provider Family Medicine
DX: R10.13 Epigastric pain (principal); K80.50 Calculus of bile duct without cholangitis or cholecystitis without obstruction
CPT/HCPCS: 76700

== ENCOUNTER → 2024-05-06 07:57 | Outpatient (BNV) | payer MEDICARE, MEDICAID, SELFPAY | PROVIDERS: PCP Family Medicine; Referring Provider Surgery; Visit Provider Radiology Vascular & Interventional Radiology | DX: K80.20 Calculus of gallbladder without cholecystitis without obstruction (principal) | CPT/HCPCS: 76700 ==

== ENCOUNTER 2024-05-14 09:13 | Outpatient (AMB) | payer MEDICARE, MEDICAID, SELFPAY ==
--- NOTE | 2024-05-14 09:24 | MHC.OFFVIS ---
Vital Signs 05/14/24 09:32 Height 5 ft 2 in Weight 224 lb BMI 41.0 BP 130/60 Blood Pressure Location Rt brachial Position Sitting Pulse 113 H Intake Visit Reasons: US results Intake Note: Patient here to discuss ABD US dated 05-06-2024 results. Reports radiation therapy completed . Patient c/o: denies nausea, vomiting, diarrhea. Would like port acath removed. Mammo: due July 2024. Tie Knitter Helper Required: No Accompanied by: mom, brother Connor Allergies No Known Allergies [No Known Allergies*] Allergy (Unknown, Verified 05/14/24 09:31) HPI Comments Details: Patient presents with her family for follow-up. Sonogram demonstrates cholelithiasis. They state that her biliary symptoms are sporadic but consist of epigastric and upper quadrant abdominal pain radiating around to the back , which prompted workup with ultrasound of the abdomen. In the meantime, patient was completed her radiation to her breast and her adjuvant therapy. Patient has family would like to note for Port-A-Cath can be removed. I will defer that to the oncologist. I recommended the family closed oncologist and should the port no longer be necessary, it can be removed at the time of cholecystectomy.. Chart was reviewed and patient evaluated. Patient was well known to me. [facility] Medical History Breast mass, left Right leg swelling Chest pain Cough Acute on chronic respiratory failure with hypoxia and hypercapnia Asthma with exacerbation Colon cancer screening Pneumonia Hospital discharge follow-up COVID Pulmonary hypertension Status post repair of fracture of orbit Sleep apnea Intellectual disability Morbid obesity Intellectual disability GEORGE (obstructive sleep apnea) Oxygen desaturation during sleep Asthma Surgical History History of lumpectomy of left breast (12/07/23) Encounter for insertion of tunneled central venous catheter (CVC) with port Cancer of left breast, stage 3 Status post spinal surgery History of open reduction and internal fixation (ORIF) procedure History of esophagogastroduodenoscopy (EGD) Family History Mother Diabetes Hypertension Father Hypertension Maternal Uncle Throat cancer Social History Household Members: Family Housing: Apartment Are you a primary zoo caretaker to a significant other at home: No Do you presently have visiting nurse or other home services: Yes (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 Right neck port. GI Other: Very corpulent abdomen, soft, benign Assessment & Plan Assessment & Plan (1) Recurrent biliary colic: Code(s): K80.50 - Calculus of bile duct without cholangitis or cholecystitis without obstruction Category: Surgical (2) Encounter for removal of tunneled central venous catheter (CVC) with port: Code(s): Z45.2 - Encounter for adjustment and management of vascular access device Category: Surgical Plan 1. Risks, benefits, alternatives laparoscopic possible open cholecystectomy reviewed with the patient and her family and included but not limited to bleeding, infection, recurrence of symptoms, numbness, pain, scarring, bowel or bile duct injury or leak and wished to proceed. All questions answered. Arrangements were made for this on a day which is convenient for her. 2. Family will contact me to see if port can be removed at the same operative sitting. All questions answered. Coding Level of Care Code Est Pt Level 5 (92149) Diagnoses Recurrent biliary colic K80.50 Encounter for removal of tunneled central venous catheter (CVC) with port Z45.2
[2024-05-14 09:32] VITALS: BP 130/60; PULSE 113; BMI 41.0
--- OUTSIDE RECORDS SUMMARY | 2024-05-14 09:32 | XMS_ITS | Encounter Summary ---
Author Organization [employer] Address [address] [facility] [address] [place] [address] Care Team Providers Care Cooker Operator Name Role Phone Miranda Maravilla DO Primary Care Provider + [phone] Encounter Details Date Type Department Care Team (Latest Contact Info) Description 04/18/2024 3:00 PM EST Office Visit [facility] MEDICINE [address] [place], [place] [phone] Eusebia Valdez MD [address] [place] [address] Onychodystrophy (Primary Dx) Social History Tobacco Use [...] documented as of this encounter Care Teams Cooker Operator Relationship Specialty Start Date End Date Miranda Maravilla DO [address] [place] [phone] PCP - General Family Medicine 09/26/19 documented as of this encounter
--- OUTSIDE RECORDS SUMMARY | 2024-05-14 09:32 | XMS_ITS | Encounter Summary ---
Author Organization [employer] Address [address] [facility] 7t [place] [address] Care Team Providers Care Manager Business Systems Name Role Phone Miranda Maravilla DO Primary Care Provider + [phone] Encounter Details Date Type Department Care Team [...] as of this encounter Care Teams Manager Business Systems Relationship Specialty Start Date End Date Miranda Maravilla DO [address] [place] [phone] PCP - General Family Medicine 09/26/19 documented as of this encounter
--- OUTSIDE RECORDS SUMMARY | 2024-05-14 09:32 | XMS_ITS | Encounter Summary ---
Author Organization [employer] Address [address] [facility] 7t [place] [address] Care Team Providers Care Chemical Compounder Name Role Phone Miranda Maravilla DO Primary Care Provider + [phone] Reason for Referral * Consultation (Urgent) - Closed Specialty Diagnoses / Procedures Referred By Kuldeep johnson Referred To Contact General Surgery Diagnoses Epigastric pain Miranda Maravilla DO [address] [place], [place] Phone: tel: fax: Jarrett Van MD [address] [place] [address] Phone: tel: fax: Referral ID Status Reason Start Date Expiration Date V isits Requested Visits Authorized [id number] Closed Specialty Services Required 04/14/2024 04/14/2025 1 1 * Imaging (Routine) - Closed Specialty Diagnoses / Procedures Referred By Kuldeep johnson Referred To Contact Radiology Diagnoses Epigastric pain Procedures US Abdomen Complete Miranda Maravilla DO [address] [place], [place] Phone: tel: fax: [facility] [address] [place] [address] Phone: tel: fax: Referral ID Status Reason Start Date Expiration Date Visits Re quested Visits Authorized [id number] Closed 04/14/2024 04/14/2025 1 1 Encounter Details Date Type Department Care Team (Late st Contact Info) Description 04/14/2024 12:00 PM EST Office Visit [facility] [address] [place] [address] Miranda Maravilla, [address] [place] [address] Epigastric pain (Primary Dx); Fatty liver; Abnormal [...] Epigastric pain Expected: 04/14/2024 (Approximate), Expires: 04/14/2025 Scheduled Referrals Name Type Priority Associated Diagnoses Orde r Schedule Referral to General Surgery Outpatient Referral Urgent Epigastric pain Expected: 04/14/2024 (Approximate), Expires: 04/14/2025 documented as of this encounter Procedures Procedure Name Priority Date/Time Associated Diagnosis Comments US ABDOMEN COMPLETE Routine 05/06/2024 1 :03 PM EST Epigastric pain VITAMIN D,25-OH,TOTAL,IA Routine [...] unspecified documented in this encounter Results * US Abdomen Complete (05/06/2024 1:03 PM EST) Anatomical Region Laterality Modality Abdomen Ultrasound 05/06/2024 1:03 PM EST Narrative 05/06/2024 1:05 PM EST ? [facility] ?[address] ?[place] [address] ? Ultrasound Report ? Signed ? Patient: Brandon Lang ?MR#: [id number] ? : 1975 ?Acct:[id number] ? Age/Sex: 49 / F ?ADM Date: 05/06/24 ? Loc: HO.US ? Attending Dr: Miranda Maravilla DO ? Ordering Physician: Miranda Maravilla DO ?? Date of Service: 05/06/24 ?? Procedure(s): US abdomen complete ?? Accession Number(s): [id number] ? cc: Miranda Maravilla DO; Jarrett Van MD ? CLINICAL HISTORY: epigastric pain RUQ pain ? US abdomen complete ? Comparison: None ? Findings: ?? The visualized pancreas is normal. ?? The aorta and inferior vena cava are normal caliber. ? The liver is normal in size and echotexture. ?? There is no intrahepatic bile duct dilatation. ?? The common duct is four mm in diameter. ?? The gallbladder demonstrates multiple stones. There is no sonographic ?? Chew sign. ?? The main portal vein is antegrade. ? The right kidney is 10.0 cm in length. ?? The left kidney and spleen are not evaluable secondary to patient ?? inability to tolerate exam. ?? No ascites. ? IMPRESSION: ?? Multiple stones are present within the gallbladder. No convincing evidence ?? of acute cholecystitis. The study is limited based on patient inability to ?? tolerate exam. ? This document has been electronically signed by: Rex Ohara MD on ?? 05/06/2024 13:03:58 ? Dictated By: ?Rex Ohara MD ? Signed By: ?<Electronically signed by Rex Ohara MD in OV> ? 05/06/24 1304 ? DD/ 1303 ? TD/TT: 05/06/24 1303 ? Dental Office Coordinator: ? Procedure Note Donotprakashter, Image - 05/06/2024 [place] [address] Ultrasound Report Signed Patient: Brandon Lang YMR#: [id number] : 1975Acct:[id number] Age/Sex: 49 / FADM Date: 05/06/24 Loc: HO.US Attending Dr: Miranda Maravilla DO Ordering Physician: Miranda Maravilla DO Date of Service: 05/06/24 Procedure(s): US abdomen complete Accession Number(s): [id number] cc: Miranda Maravilla DO; Jarrett Van MD CLINICAL HISTORY: epigastric pain RUQ pain US abdomen complete Comparison: None Findings: The visualized pancreas is normal. The aorta and inferior vena cava are normal caliber. The liver is normal in size and echotexture. There is no intrahepatic bile duct dilatation. The common duct is four mm in diameter. The gallbladder demonstrates multiple stones. There is no sonographic Chew sign. The main portal vein is antegrade. The right kidney is 10.0 cm in length. The left kidney and spleen are not evaluable secondary to patient inability to tolerate exam. No ascites. IMPRESSION: Multiple stones are present within the gallbladder. No convincing evidence of acute cholecystitis. The study is limited based on patient inability to tolerate exam. This document has been electronically signed by: Rex Ohara MD on 05/06/2024 13:03:58 Dictated By: Rex Ohara MD Signed By: <Electronically signed by Rex Ohara MD in OV> 05/06/24 1304 DD/ 1303 TD/TT: 05/06/24 1303 Dental Office Coordinator: us Miranda Maravilla DO IMG US PROCEDURES Final Resu lt * Alpha-Fetoprotein, Tumor Marker (04/14/2024 12:38 PM EST) Alpha Fetoprotein 3.1 ng/mL [facility] Comment:Reference Range: <6. 1The use of AFP as a tumor marker in females is not recommended.This test was performed using the Jessica Coulterchemiluminescent method. Values obtained fromdifferent assay methods cannot be usedinterchangeably. AFP levels, regardless ofvalue, should not be interpreted as absoluteevidence of the presence or absence of disease.THIS TEST WAS PERFORMED AT:[facility] [place] [id number] ROSE MD Blood Venous blood specimen / Unknown 04/14/2024 12:38 PM EST 04/14/2024 1:44 PM EST Miranda Maravilla DO LAB BLOOD ORDERABLES Final R esult Performing Organization Address [facility] Co de Phone Number [facility] [address] [place] [phone] * Lipase (04/14/2024 12:38 PM EST) Lipase 31 8 - 78 U/L [facility] Blood Venous blood specimen / Unknown 04/14/2024 12:38 PM EST 04/14/2024 1:44 PM EST Miranda Maravilla DO LAB BLOOD ORDERABLES Final R esult Performing Organization Address [facility] Co de Phone Number [facility] [address] [place] [phone] * Amylase (04/14/2024 12:38 PM EST) Amylase 57 28 - 100 U/L [facility] Blood Venous blood specimen / Unknown 04/14/2024 12:38 PM EST 04/14/2024 1:44 PM EST Miranda Maravilla LAB BLOOD ORDERABLES Final R esult Performing Organization Address City/[facility]/ZIP Co de Phone Number [facility] [address] [place] [address] [phone] * (ABNORMAL) CBC (04/14/2024 12:38 PM EST) White Blood Count 4.9 4.8 - 10.8 X10*3/uL [facility] Red Blood Count 4.69 4.20 - 5.50 X10*6/uL [facility] Hemoglobin 12.5 12.0 - 16.0 g/dl [facility] Hematocrit 40.6 37.0 - 47.0 % [facility] Mean Corpuscular Volume 86.6 80.0 - 98.0 fL [facility] Mean Corpuscular Hemoglobin 26.7(L) 27.0 - 33.0 pg [facility] Mean Corpuscular HGB Conc 30.8(L) 31.0 - 35.0 g/dl [facility] Red Cell Distribution Width 17.2(H) 11.0 - 16.0 % [facility] Platelet Count 161 160 - 400 X10*3/uL [facility] Mean Platelet Volume 11.3 9.4 - 12.3 fL [facility] NRBC Pct Auto 0.0 0.0 - 0.2 /100WBC [facility] NRBC Abs Auto 0.000 0.0 - 0.012 X10*3/uL [facility] Blood Venous blood specimen / Unknown 04/14/2024 12:38 PM EST 04/14/2024 1:44 PM EST us Miranda Maravilla DO LAB BLOOD ORDERABLES Final R esult [facility] [address] [place] [address] [phone] * Hemoglobin A1c (04/14/2024 12:38 PM EST) Hemoglobin A1c 5.3 <6.0 % [facility] Comment:Hemoglobin A1C Refer ence Range Adults: 4.8 - 6.0 % Non diabetic: < 6.0 % Goal: < 7.0 %Additional Action Suggested: > 8.0 %Note: Hemoglobin A1c results are invalid for patients with abnormal amounts of HbF. Blood transfusions may impact the HbA1c concentration in the patient sample. Estimated Average Glucose 105 mg/dL [facility] Comment:eAG = Estimated ave rage glucose which is %A1C expressed asaverage glucose, using the formula of the Z9Z-UhjqlglWlrewcs Glucose study (ADAG), Diabetes Care, Vol.31,#8,Nov. 2007 Blood Venous blood specimen / Unknown 04/14/2024 12:38 PM EST 04/14/2024 1:44 PM EST [facility] BLOOD ORDERABLES Final R esult Performing Organization Address City/[facility]/ZIP Co de Phone Number [facility] [address] [place] [phone] * Hepatic Function Panel (04/14/2024 12:38 PM EST) Bilirubin, Direct 0.1 0.0 - 0.5 mg/dL [facility] Blood Venous blood specimen / Unknown 04/14/2024 12:38 PM EST 04/14/2024 1:44 PM EST Miranda Renita LAB BLOOD ORDERABLES Final R esult Performing Organization Address [facility]/ZIP Co de Phone Number [facility] [address] [place] [phone] * Vitamin D, 25-Hydroxy, Total, Immunoassay (04/14/2024 12:38 PM EST) Vitamin D 25-OH Total 42.5 >30 ng/mL [facility] Comment:Health Based Referen ce Values*< 20 ng/mL Zdhgoyatn95-44 ng/mL Insufficient> 30 ng/mL Sufficient*Sarah MENDEZ. N [...] DO LAB BLOOD ORDERABLES Final R esult [facility] [address] [place] [phone] * (ABNORMAL) Lipid Panel, Standard (04/14/2024 12:38 PM EST) Triglycerides 82 <150 mg/dL [facility] Comment:Desirable Triglyceri de: less than 150 mg/dLBorderline High Triglyceride 150-199 mg/dLHigh Triglyceride: 200-499 mg/dLVery High Triglyceride: greater than or equal to 5OO mg/dL Cholesterol 199 <200 mg/dL [facility] Comment:Desirable Cholestero l: less than 200 mg/dLBorderline High Cholesterol: 200-239 mg/dLHigh Cholesterol: greater than 239 mg/dL LDL Cholesterol Calculated 104(H) <100 mg/dL [facility] Comment:Desirable LDL: less than 100 mg/dLNear Optimal/Above Optimal LDL: 110- 129 mg/dLBorderline High LDL: 130-159 mg/dLHigh LDL: 160-189 mg/dLVery High LDL: greater than or equal to 190 mg/dL HDL Cholesterol 79 >40 mg/dL [facility] Comment:Desirable HDL: great er than 40 mg/dL Note: This HDL assay may give artificially low results in patients with liver disease. Blood Venous blood specimen / Unknown 04/14/2024 12:38 PM EST 04/14/2024 1:44 PM EST us Miranda Maravilla DO LAB BLOOD ORDERABLES Final R esult [facility] [address] [place] [address] [phone] documented in this encounter Visit Diagnoses [...] documented as of this encounter Care Teams Chemical Compounder Relationship Specialty Start Date End Date Miranda Maravilla DO [address] [place] [phone] PCP - General Family Medicine 09/26/19 documented as of this encounter
--- OUTSIDE RECORDS SUMMARY | 2024-05-14 09:32 | XMS_ITS | Encounter Summary ---
Author Organization [employer] Address [address] [facility] 7t [place] [address] Care Team Providers Care Rate Analyst Name Role Phone Miranda Maravilla DO Primary Care Provider + [phone] Encounter Details Date Type Department Care Team [...] documented as of this encounter Care Teams Rate Analyst Relationship Specialty Start Date End Date Miranda Maravilla DO [address] [place] [phone] PCP - General Family Medicine 09/26/19 documented as of this encounter
--- OUTSIDE RECORDS SUMMARY | 2024-05-14 09:32 | XMS_ITS | Encounter Summary ---
Author Organization [employer] Address [address] [facility] [address] [place] [address] Care Team Providers Care Enterprise Integration Developer Name Role Phone Miranda Maravilla DO Primary Care Provider + [phone] Encounter Details Date Type Department Care Team ([facility] st Contact Info) Description 04/05/[address] [facility] MED[facility]INE [address] [place], [place] [phone] Miranda Maravilla DO [address] [place], [place] [phone] Social History Tobacco Use Types Packs/Day Years [...] documented as of this encounter Care Teams Enterprise Integration Developer Relationship Specialty Start Date End Date Miranda Maravilla DO [address] [place], [place] [phone] PCP - General Family Medicine 09/26/19 documented as of this encounter
--- OUTSIDE RECORDS SUMMARY | 2024-05-14 09:32 | XMS_ITS | Encounter Summary ---
Author Organization [employer] Address [address] [facility] [address] [address] Care Team Providers Care Bath Solution Maker Name Role Phone Miranda Maravilla DO Primary Care Provider + [phone] Reason for Visit * Reason Comments Med Refill Encounter Details Date Type Department Care Team ([facility] st Contact Info) Description 07/26/2022 Refill [facility] [address] [place] [address] Miranda Maravilla DO [address] [place], [place] [phone] Social History Tobacco Use Types Packs/Day Years [...] documented as of this encounter Care Teams Bath Solution Maker Relationship Specialty Start Date End Date Miranda Maravilla DO [address] [place] [address] PCP - General Family Medicine 09/26/19 documented as of this encounter
--- OUTSIDE RECORDS SUMMARY | 2024-05-14 09:32 | XMS_ITS | Encounter Summary ---
Author Organization [employer] Address [address] [facility] [address] [place] [address] Care Team Providers Care Skate Boarder Name Role Phone Miranda Maravilla DO Primary Care Provider + [phone] Reason for Visit * Reason Comments Med Refill Encounter Details Date Type Department Care Team ([facility] st Contact Info) Description 06/11/2023 Refill [facility] [address] [place] [address] Miranda Maravilla DO [address] [place], [place] [phone] Pain Social History Tobacco Use Types Packs/Day [...] the past 12 months, has t he [employer], gas, oil or water company threatened to [...] documented as of this encounter Care Teams Skate Boarder Relationship Specialty Start Date End Date Miranda Maravilla DO [address] [place] [phone] PCP - General Family Medicine 09/26/19 documented as of this encounter
--- OUTSIDE RECORDS SUMMARY | 2024-05-14 09:32 | XMS_ITS | Encounter Summary ---
Author Organization [employer] Address [address] [facility] [address] [place] [address] Care Team Providers Care Sharepoint Admin Name Role Phone Miranda Maravilla DO Primary Care Provider + [phone] Encounter Details Date Type Department Care Team [...] PM EST) CA 27.29 16 <38 U/mL [facility] Comment:This test was perfor med [...] adjustment made inOctober 2023 by the reagent french instructor. In the lowrange for this assay (<38 U/mL), this increase may begreater than 20%. Serially monitored results shouldalways be used in conjunction with other diagnosticprocedures, including clinical evaluation.THIS TEST WAS PERFORMED AT:[facility] [place] [id number] ROSE MD 04/14/2024 12:3 8 PM EST 04/14/2024 1:44 PM EST us Generic External Data Provider LAB BLOOD ORDERAB LES Final Result [facility] [address] [place] [phone] * (ABNORMAL) Comprehensive Metabolic Panel (04/14/2024 12:38 PM EST) Pathologist [facility] Sodium 142 135 - 145 mmol/L [facility] Potassium 4.0 3.3 - 5.1 mmol/L [facility] Chloride 105 96 - 108 mmol/L [facility] Carbon Dioxide 31(H) 22 - 29 mmol/L [facility] Anion Gap 10(L) 12 - 20 [facility] Urea Nitrogen (BUN) 11 9 - 16 mg/dL [facility] Creatinine, Serum 0.63 0.5 - 1.4 mg/dL [facility] Estimated Glomerular Filt Rate >60 [facility] Comment:Chronic Kidney Disea se: Estimated GFR < 60 mL/min/1.04w4Qgtaed Kidney Disease: Estimated GFR < 15 mL/min/1.73m2 Glucose 119(H) 60 - 115 mg/dL [facility] Calcium 9.5 8.4 - 10.2 mg/dL [facility] Bilirubin, Total 0.4 0.0 - 1.0 mg/dL [facility] Aspartate Amino Transferase 23 5 - 31 U/L [facility] Alanine Aminotransferase 23 0 - 31 U/L [facility] Total Protein 7.2 6.5 - 8.0 g/dL [facility] Albumin Level 3.8 3.5 - 5.0 g/dL [facility] Alkaline Phosphatase 85 39 - 117 U/L [facility] 04/14/2024 12:3 8 PM EST 04/14/2024 1:44 PM EST us Generic External Data Provider LAB BLOOD ORDERAB LES Final Result [facility] [address] [place] [phone] * (ABNORMAL) CBC auto differential (04/14/2024 12:38 PM EST) Pathologist [facility] White Blood Count 5.0 4.8 - 10.8 X10*3/uL [facility] Red Blood Count 4.70 4.20 - 5.50 X10*6/uL [facility] Hemoglobin 12.7 12.0 - 16.0 g/dl [facility] Hematocrit 40.7 37.0 - 47.0 % [facility] Mean Corpuscular Volume 86.6 80.0 - 98.0 fL [facility] Mean Corpuscular Hemoglobin 27.0 27.0 - 33.0 pg [facility] Mean Corpuscular HGB Conc 31.2 31.0 - 35.0 g/dl [facility] Red Cell Distribution Width 17.2(H) 11.0 - 16.0 % [facility] Platelet Count 155(L) 160 - 400 X10*3/uL [facility] Mean Platelet Volume 11.1 9.4 - 12.3 fL [facility] Neutrophils Percent Auto 73.6(H) 45 - 73 % [facility] Imm Gran Pct Auto 0.4 0.0 - 0.4 % [facility] Lymphocytes Percent Auto 11.3(L) 20 - 40 % [facility] Monocytes Percent Auto 8.7 2 - 11 % [facility] Eosinophils Percent Auto 5.6(H) 0 - 4 % [facility] Basophils Percent Auto 0.4 0 - 2 % [facility] NRBC Pct Auto 0.0 0.0 - 0.2 /100WBC [facility] Neutrophils Absolute Auto 3.7 2.0 - 8.3 x10*3/uL [facility] Imm Gran Abs Auto 0.02 0.00 - 0.03 X10*3/uL [facility] Lymphocytes Absolute Auto 0.6(L) 1.2 - 4.9 X10*3/uL [facility] Monocytes Absolute Auto 0.4 0.1 - 1.2 X10*3/uL [facility] Eosinophils Absolute Auto 0.3 0.0 - 0.4 X10*3/uL [facility] Basophils Absolute Auto 0.0 0.0 - 0.2 X10*3/uL [facility] NRBC Abs Auto 0.000 0.0 - 0.012 X10*3/uL [facility] 04/14/2024 12:3 8 PM EST 04/14/2024 1:44 PM EST us Generic External Data Provider LAB BLOOD ORDERAB LES Final Result Performing Organization Address City/State/[facility] Co de Phone Number [facility] [address] [place] [phone] documented in this encounter Visit Diagnoses Not on filedocumented in this encounter Additional Health Concerns Assessment Noted Time PHQ-9 Depression Total Score: 7 08/20/19 24 10:35 AM EDT documented as of this encounter Care Teams Sharepoint Admin Relationship Specialty Start Date End Date Miranda Maravilla DO [address] [place] [phone] PCP - General Family Medicine 09/26/19 documented as of this encounter
--- OUTSIDE RECORDS SUMMARY | 2024-05-14 09:32 | XMS_ITS | Encounter Summary ---
Author Organization [employer] Address [address] [facility] [address] [place] [address] Care Team Providers Care Slubber Hand Name Role Phone Miranda Maravilla DO Primary Care Provider + [phone] Reason for Visit * Reason Comments Med Refill Encounter Details Date Type Department Care Team ([facility] st Contact Info) Description 04/11/2024 Refill [facility] [address] [place] [phone] Miranda Maravilla DO [address] [place], [place] [phone] Pain Social History Tobacco Use Types Packs/Day [...] documented as of this encounter Care Teams Slubber Hand Relationship Specialty Start Date End Date Miranda Maravilla DO [address] [place] [phone] PCP - General Family Medicine 09/26/19 documented as of this encounter
--- OUTSIDE RECORDS SUMMARY | 2024-05-14 09:33 | XMS_ITS | Clinical Summary ---
Author Organization [employer] Address [address] [place] [address] Care Team Providers Care Door To Door Selling Agent Name Role Phone Miranda Maravilla DO Primary Care Provider + [phone] Allergies No known active allergies Medications ARIPiprazole [...] coffee or tea as needed for Constipation 07/05/19 22 Active polyvinyl alcohol (Liquifilm Tears) 1.4 % ophthalmic solution In drop in each eye twice a day prn dry eyes Active zolpidem (Ambien) 10 MG tabletIndications: Obstructive sleep apnea Take 1 tablet by mouth 30 minutes before sleep study 1 tablet 08/24/19 23 Active fluticasone (Flonase) 50 MCG/ACT nasal sprayIndications:S easonal allergic rhinitis, unspecified trigger USE 2 SPRAYS IN EACH NOSTRIL EVERY DAY 48 g 11/11/19 23 Active albuterol (ProAir HFA) 108 (90 Base) MCG/ACT inhalerIndications :Moderate persistent asthma without complication,Obstr uctive sleep apnea syndrome,Obesity hypoventilation syndrome (CMS/HCC) Inhale 2 puffs every 4 (four) hours if needed for shortness of breath or wheezing. 18 g 11 03/08/20 23 Active albuterol (2.5 MG/3ML) 0.083% nebulizer solutionIndication s:Moderate persistent asthma with acute exacerbation INHALE 1 AMPULE USING A NEBULIZER EVERY 4 HOURS NEEDED 90 mL 3 03/08/20 23 Active Diclofenac Sodium 1 % gelIndications:Chr onic knee pain, unspecified laterality APPLY TO THE AFFECTED AREA(S) 2 GRAMS TOPICALLY TWICE DAILY IN THE MORNING AND AT BEDTIME NEEDED FOR PAIN 100 g 04/17/19 24 Active docusate sodium (Colace) 100 MG capsule TAKE 1 CAPSULE BY MOUTH TWICE DAILY NEEDED 180 capsule 3 05/29/19 24 Active senna (Senokot) 8.6 MG tabletIndications: Chronic constipation TAKE 2 TABLETS BY MOUTH AT BEDTIME NEEDED FOR CONSTIPATION 180 tablet 3 05/29/19 24 Active Petrolatum 42 % ointment APPLY TOPICALLY TO SKIN TWICE DAILY NEEDED 454 g 5 06/19/19 24 Active torsemide (Demadex) 20 MG tablet Take 1 tablet (20 mg) by mouth Once per day. 30 tablet 5 08/20/19 24 025 Active Ketotifen Fumarate (Alaway) 0.035 % solution Administer 1 drop into affected eye(s) if needed in the morning and at bedtime (eye itching). 10 mL 2 08/20/19 24 Active hydrocortisone 2.5 % cream Apply topically if needed in the morning and at bedtime (foot rash). 28 g 1 08/20/19 24 Active ipratropium-albute rol (Duo-Neb) 0.5-2.5 mg/3 mL nebulizer solutionIndication s:Unspecified asthma, uncomplicated INHALE 1 AMPULE USING A NEBULIZER THREE TIMES DAILY 180 mL 3 09/04/19 24 Active Fluticasone Furoate-Vilanterol (Breo Ellipta) 200-25 MCG/ACT aerosol powderIndications: Moderate persistent asthma without complication,Obstr uctive sleep apnea syndrome,Obesity hypoventilation syndrome (CMS/HCC) Inhale 1 puff Once per day. 1 each 09/21/19 24 Active cetirizine (ZyrTEC) 10 MG tablet Take 1 tablet (10 mg) by mouth Once per day. 30 tablet 11 11/21/19 24 025 Active baclofen (Lioresal) 10 MG tabletIndications: Muscle spasm TAKE 1/2 TO 1 TABLET BY MOUTH EVERY DAY AT BEDTIME NEEDED FOR MUSCLE SPASMS 30 tablet 3 01/18/20 24 Active naproxen (Naprosyn) 500 MG tabletIndications: Pain TAKE 1 TABLET BY MOUTH TWICE DAILY WITH FOOD NEEDED FOR PAIN 20 tablet 1 02/15/20 24 Active triamcinolone (Kenalog) 0.1 % ointment APPLY 1 GRAM TOPICALLY TO AFFECTED AREA(S) TWICE DAILY IN THE MORNING AND AT BEDTIME NEEDED FOR RASH 30 g 1 03/13/20 24 Active acetaminophen (Tylenol 8 Hour) 650 MG ER tablet TAKE 1 TABLET BY MOUTH EVERY 6 HOURS NEEDED FOR MILD PAIN 60 tablet 1 03/13/20 24 Active calcium carbonate (Calcium Antacid) 500 MG chewable tablet CHEW AND SWALLOW 2 TABLETS BY MOUTH FOUR TIMES DAILY AFTER MEALS AND AT BEDTIME NEEDED FOR HEARTBURN 150 tablet 1 04/07/20 24 Active omeprazole (PriLOSEC) [address] capsule Take 1 capsule (20 mg) by mouth before breakfast. Do not crush or chew. 30 capsule 11 04/14/19 25 026 Active azithromycin (Zithromax Z-Alan) 250 MG tablet Take 2 tablets once on day 1, then 1 tablet 1x/day for 4 days. 6 tablet 04/22/19 25 Active traZODone (Desyrel) 50 MG tablet TAKE 2 TABLETS BY MOUTH AT BEDTIME NEEDED 60 tablet 3 11/21/19 24 025 Discontin ued(Disco ntinued by another clinician ) predniSONE (Deltasone) 20 MG tablet Take 2 tablets (40 mg) by mouth Once per day for 5 days. 10 tablet 04/22/19 25 025 Active Problems Problem Noted Date Diagnosed Date [...] venous catheter (CVC) with port 08/20/2023 08/20/19 24 Primary malignant neoplasm of breast 08/20/2023 08/20/2023 [...] Description 04/29/2024 6:20 PM EST Office Visit [facility] [address] [address] Oliver Bates MD Viral URI 04/25/2024 Orders Only [facility] [address] [place] [phone] Jo Ann Christopher MD 04/22/2024 11:00 AM EST Office Visit [facility] [address] [address] Madhu Anthony MD Moderate persistent asthma with acute exacerbation (Primary Dx); Viral URI 04/18/2024 3:00 PM EST Office Visit [facility] [address] [place] [address] Eusebia Valdez MD Onychodystrophy (Primary Dx) 04/18/2024 Travel 04/14/2024 12:00 PM EST Office Visit [facility] [address] [place] [address] Miranda Maravilla DO Epigastric pain (Primary Dx); Fatty liver; Abnormal finding of blood chemistry, unspecified; Body mass index (BMI) 40.0-44.9, adult (CMS/HCC); Mixed hyperlipidemia; Encounter for immunization 04/14/2024 Orders Only GENERIC EXTERNAL DATA DEPARTMENT Provider, Generic External Data 04/14/2024 Travel 04/11/2024 Refill [facility] [address] [place] [address] Miranda Maravilla DO Pain 04/08/2024 Telephone [facility] [address] [place] [address] Miranda Maravilla DO Nurse Triage 04/04/2024 Refill [facility] [address] [place] [address] Miranda Maravilla DO 03/14/2024 Telephone [facility] [address] [place] [address] Conchita Durham, RN Nebulizer physician order 03/12/2024 Refill [facility] [address] [facility] [place] [address] Miranda Maravilla DO 03/04/2024 Refill [facility] [address] [facility] [place] [address] Miranda Maravilla DO 02/15/2024 Refill [facility] [address] [facility] [place] [address] Miranda Maravilla DO Pain 02/12/2024 Orders Only [facility] External Provider, [facility] from Last 3 Months Immunizations Name Administration Dates Next Due Hep B, Adolescent or Pediatric 06/28/2001,1999,12/08/1998 Influenza injectable quadriv alent IIV4 with preservative 01/24/2018,02/28/2017 Influenza injectable quadriv alent preservative free 01/11/2023,03/28/2022,01/14/2021,01/12,04/07/2019 Influenza, IIV3, injectable 04/27/2011 Influenza, Split (incl. marysol fied surface antigen) 01/30/2013,12/26/2011 Influenza, seasonal, injecta ble, preservative free 04/14/2024 Moderna Covid-19 Vaccine 12+ 05/04/2021,08/11/19 21,07/09/2020 Pfizer Covid-19 Vaccine 12+ 04/11/2023 Pfizer Covid-19 [...] 5 Years) and At-Risk Patients (6 to 49) Years) Completed 05/09/2022, 07/11/2014 Influenza Vaccine Completed [...] 05/06/2024 1 :03 PM EST Epigastric pain XR CHEST 2 VIEWS Routine 04/30/2024 11:2 [...] Recently Relevant to Health Maintenance Results * US Abdomen Complete (05/06/2024 1:03 PM EST) Anatomical Region Laterality Modality Abdomen Ultrasound 05/06/2024 1:03 PM EST Narrative 05/06/2024 1:05 PM EST ? [facility] ?[address] ?[place] [address] ? Ultrasound Report ? Signed ? Patient: Brandon Lang Y ?MR#: [id number] ? : 1975 ?Acct:[id number] ? Age/Sex: 49 / F ?ADM Date: 05/06/24 ? Loc: HO.US ? Attending Dr: Miranda Maravilla DO ? Ordering Physician: Miranda Maravilla DO ?? Date of Service: 05/06/24 ?? Procedure(s): US abdomen complete ?? Accession Number(s): [id number] ? cc: Miranda Maravilla DO; Jarrett Van [...] DD/ 1303 ? TD/TT: 05/06/24 1303 ? Physical Security Manager: ? Procedure Note Donamie, Image - 05/06/2024 [place] [address] Ultrasound Report Signed Patient: Brandon Lang YMR#: [id number] : 1975Acct:[id number] Age/Sex: 49 / FADM Date: 05/06/24 Loc: HO.US Attending Dr: Miranda Maravilla DO Ordering Physician: Miranda Maravilla DO Date of Service: 05/06/24 Procedure(s): US abdomen complete Accession Number(s): [id number] cc: Miranda Maravilla DO; Jarrett Van MD [...] 05/06/24 1304 DD/ 1303 TD/TT: 05/06/24 1303 Physical Security Manager: us Miranda Deleoncorky DO IMG US PROCEDURES Final Resu lt * XR Chest 2 Views (04/30/2024 11:21 AM EST) Anatomical Region Laterality Modality Chest Radiographic Maribel ging 04/30/2024 11:2 1 AM EST Narrative 04/30/2024 1:31 PM EST ?[facility] ?[address] ?[place] [address] ?XRay Report ? Signed ? Patient: Brandon Lang ?MR#: [id number] ? : 1975 ?Acct:[id number] ? Age/Sex: 49 / F ?ADM Date: 04/30/24 ? Loc: HO.HHCX ? Attending Dr: Oliver Bates MD ? Ordering Physician: Oliver Bates MD ?? Date of Service: 04/30/24 ?? Procedure(s): XR chest 2V ?? Accession Number(s): [id number] ? cc: Oliver Bates MD ? EXAMINATION: [...] DD/ 1121 ? TD/TT: 04/30/24 1200 ? Physical Security Manager: VIOLETTE ? Procedure Note Donotuseinterpreter, Image - 04/30/[address] [address] XRay Report Signed Patient: Brandon Lang YMR#: [id number] : 1975Acct:[id number] Age/Sex: 49 / FADM Date: 04/30/24 Loc: HO.HHCX Attending Dr: Oliver Bates MD Ordering Physician: Oliver Bates MD Date of Service: 04/30/24 Procedure(s): XR chest 2V Accession Number(s): [id number] cc: Oliver Bates MD EXAMINATION: XR CHEST [...] Guero Cartwright MD 04/30/2024 01:28 PM EST Dictated By: Guero Cartwright MD Signed By: <Electronically signed by Guero Cartwright MD in OV> 04/30/24 1328 DD/ 1121 TD/TT: 04/30/24 1200 Physical Security Manager: VIOLETTE Oliver Bates MD IMG XR PROCEDURES Final Result * POCT Rapid Influenza B ONTIVEROS ID NOW (04/29/2024 7:14 PM EST) Only the most recent of2 resultswithin the time period is included. [facility] Influenza B Negative Negative, Indeterminate [facility] QC Media Lot # [id number] [facility] Lot# Expiration Date [facility] Swab 04/29/2024 7:14 PM EST Oliver Bates MD POINT OF CARE TEST ENTER/EDIT OR DERABLES Final Result Performing Organization Address [facility]/ZIP Co de Phone Number [facility] [address] [place] [phone] * POCT Rapid Influenza A ONTIVEROS ID NOW (04/29/2024 7:14 PM EST) Only the most recent of2 resultswithin the time period is included. [facility] Influenza A Negative Negative, Indeterminate [facility] QC Media Lot # [id number] [facility] Lot# Expiration Date [facility] Swab 04/29/2024 7:14 PM EST us Oliver Bates MD POINT OF CARE TEST ENTER/EDIT OR DERABLES Final Result Performing Organization Address City/[facility]/ZIP Co de Phone Number [facility] [address] [place] [phone] * POCT Rapid Covid-19 BinaxNOW (04/29/2024 7:14 PM EST) Only the most recent of2 resultswithin the time period is included. Pathologist [facility] Rapid COVID Ag Negative QC Media Lot # [id number] Lot# Expiration Date Swab 04/29/2024 7:14 PM EST us Oliver Bates MD POINT OF CARE TEST ENTER/EDIT OR DERABLES Final Result * Respiratory Viral Panel PCR (04/29/2024 12:00 AM EST) Adenovirus PCR Not Detected Not Detect. [facility] Bordetella pertussis PCR Not Detected Not Detect. [facility] Comment:Interpret results wi th caution. If B. pertussis isspecifically suspected, additional testing using analternate method is recommended. Bordetella parapertussis PCR Not Detected Not Detect. [facility] Chlamydia pneumoniae PCR Not Detected Not Detect. [facility] Coronavirus 229E PCR Not Detected Not Detect. [facility] Coronavirus HKU1 PCR Not Detected Not Detect. [facility] Coronavirus NL63 PCR Not Detected Not Detect. [facility] Coronavirus OC43 PCR Not Detected Not Detect. [facility] SARS-CoV-2 PCR Not Detected Not Detect. [facility] Comment:SARS-CoV-2 not detec michael by real-time [...] Influenza A PCR Not Detected Not Detect. [facility] Influenza B PCR Not Detected Not Detect. [facility] Human metapneumovirus PCR Not Detected Not Detect. [facility] Rhino/Enterovirus PCR Not Detected Not Detect. [facility] Mycoplasma pneumoniae PCR Not Detected Not Detect. [facility] Parainfluenza 1 PCR Not Detected Not Detect. [facility] Parainfluenza 2 PCR Not Detected Not Detect. [facility] Parainfluenza 3 PCR Not Detected Not Detect. [facility] Parainfluenza 4 PCR Not Detected Not Detect. [facility] RSV PCR Not Detected Not Detect. [facility] Resp Panel NA Note See Note H [facility] Comment:All results must be correlated [...] assay is performed by Multiplexed PCR, utilizing Alea Array. 04/29/2024 04/29/2024 us Oliver Bates MD LAB BLOOD ORDERABLES Final Resul t [facility] [address] [place] [phone] * Dermatopathology Report (04/18/2024 2:57 PM EST) Historical Provider LAB BLOOD ORDERABLES Barby l Result * Vitamin D, 25-Hydroxy, Total, Immunoassay (04/14/2024 12:38 PM EST) Vitamin D 25-OH Total 42.5 >30 ng/mL [facility] Comment:Health Based Referen ce Values*< 20 ng/mL Tevlgmspf09-93 ng/mL Insufficient> 30 ng/mL Sufficient*Sarah MENDEZ. N [...] Final R esult [facility] [address] [place] [address] [phone] * (ABNORMAL) CBC auto differential (04/14/2024 12:38 PM EST) White Blood Count 5.0 4.8 - 10.8 X10*3/uL [facility] Red Blood Count 4.70 4.20 - 5.50 X10*6/uL [facility] Hemoglobin 12.7 12.0 - 16.0 g/dl [facility] Hematocrit 40.7 37.0 - 47.0 % [facility] Mean Corpuscular Volume 86.6 80.0 - 98.0 fL [facility] Mean Corpuscular Hemoglobin 27.0 27.0 - 33.0 pg [facility] Mean Corpuscular HGB Conc 31.2 31.0 - 35.0 g/dl [facility] Red Cell Distribution Width 17.2(H) 11.0 - 16.0 % [facility] Platelet Count 155(L) 160 - 400 X10*3/uL [facility] Mean Platelet Volume 11.1 9.4 - 12.3 fL [facility] Neutrophils Percent Auto 73.6(H) 45 - 73 % [facility] Imm Gran Pct Auto 0.4 0.0 - 0.4 % [facility] Lymphocytes Percent Auto 11.3(L) 20 - 40 % [facility] Monocytes Percent Auto 8.7 2 - 11 % [facility] Eosinophils Percent Auto 5.6(H) 0 - 4 % [facility] Basophils Percent Auto 0.4 0 - 2 % [facility] NRBC Pct Auto 0.0 0.0 - 0.2 /100WBC [facility] Neutrophils Absolute Auto 3.7 2.0 - 8.3 x10*3/uL [facility] Imm Gran Abs Auto 0.02 0.00 - 0.03 X10*3/uL [facility] Lymphocytes Absolute Auto 0.6(L) 1.2 - 4.9 X10*3/uL [facility] Monocytes Absolute Auto 0.4 0.1 - 1.2 X10*3/uL [facility] Eosinophils Absolute Auto 0.3 0.0 - 0.4 X10*3/uL [facility] Basophils Absolute Auto 0.0 0.0 - 0.2 X10*3/uL [facility] NRBC Abs Auto 0.000 0.0 - 0.012 X10*3/uL [facility] 04/14/2024 12:3 8 PM EST 04/14/2024 1:44 PM EST us Generic External Data Provider LAB BLOOD ORDERAB LES Final Result [facility] [address] [place] [phone] * Cancer antigen 27.29 (04/14/2024 12:38 PM EST) CA 27.29 16 <38 U/mL [facility] Comment:This test was perfor med [...] adjustment made inOctober 2023 by the reagent casino operations supervisor. In the lowrange for this assay (<38 U/mL), this increase may begreater than 20%. Serially monitored results shouldalways be used in conjunction with other diagnosticprocedures, including clinical evaluation.THIS TEST WAS PERFORMED AT:[facility] [place] [id number] ROSE MD 04/14/2024 12:3 8 PM EST 04/14/2024 1:44 PM EST Generic External Data Provider LAB BLOOD ORDERAB LES Final Result Performing Organization Address [facility]/ZIP Co de Phone Number [facility] [address] [place] [address] [phone] * Alpha-Fetoprotein, Tumor Marker (04/14/2024 12:38 PM EST) Pathologist [facility] Alpha Fetoprotein 3.1 ng/mL [facility] Comment:Reference Range: <6. 1The use of AFP as a tumor marker in females is not recommended.This test was performed using the Jessica Coulterchemiluminescent method. Values obtained fromdifferent assay methods cannot be usedinterchangeably. AFP levels, regardless ofvalue, should not be interpreted as absoluteevidence of the presence or absence of disease.THIS TEST WAS PERFORMED AT:[facility] [place] [id number] ROSE MD Blood Venous blood specimen / Unknown 04/14/2024 12:38 PM EST 04/14/2024 1:44 PM EST Miranda Maravilla DO LAB BLOOD ORDERABLES Final R esult Performing Organization Address [facility] Co de Phone Number [facility] [address] [place] [address] [phone] * (ABNORMAL) CBC (04/14/2024 12:38 PM [...] PM EST 04/14/2024 1:44 PM EST [facility] BLOOD ORDERABLES Final R esult Performing Organization Address City/[facility]/ZIP Co de Phone Number [facility] [address] [place] [phone] * Lipase (04/14/2024 12:38 PM EST) Lipase 31 8 - 78 U/L [facility] Blood Venous blood specimen / Unknown 04/14/2024 12:38 PM EST 04/14/2024 1:44 PM EST [facility] LAB BLOOD ORDERABLES Final R esult Performing Organization Address City/[facility]/ZIP Co de Phone Number [facility] [address] [place] [address] [phone] * Hemoglobin A1c (04/14/2024 12:38 PM EST) Hemoglobin A1c 5.3 <6.0 % [facility] Comment:Hemoglobin A1C Refer ence Range [...] asaverage glucose, using the formula of the T8S-BjlyvbjQfhnzyr Glucose study (ADAG), Diabetes Care, Vol.31,#8,Nov. 2007 Blood Venous blood specimen / Unknown 04/14/2024 12:38 PM EST 04/14/2024 1:44 PM EST Miranda Maravilla LAB BLOOD ORDERABLES Final R esult Performing Organization Address [facility] Co de Phone Number [facility] [address] [place] [phone] * Amylase (04/14/2024 12:38 PM EST) Amylase 57 28 - 100 U/L [facility] Blood Venous blood specimen / Unknown 04/14/2024 12:38 PM EST 04/14/2024 1:44 PM EST Miranda Maravilla LAB BLOOD ORDERABLES Final R esult Performing Organization Address [facility] Co de Phone Number [facility] [address] [place] [phone] * Hepatic Function Panel (04/14/2024 12:38 PM EST) Bilirubin, Direct 0.1 0.0 - 0.5 mg/dL [facility] Blood Venous blood specimen / Unknown 04/14/2024 12:38 PM EST 04/14/2024 1:44 PM EST Miranda Maravilla LAB BLOOD ORDERABLES Final R esult Performing Organization Address City/[facility] Co de Phone Number [facility] [address] [place] [phone] * (ABNORMAL) Lipid Panel, Standard (04/14/2024 12:38 PM EST) Triglycerides 82 <150 mg/dL [facility] Comment:Desirable Triglyceri de: less than [...] 190 mg/dL HDL Cholesterol 79 >40 mg/dL [facility] Comment:Desirable HDL: great er than 40 mg/dL Note: This HDL assay may give artificially low results in patients with liver disease. Blood Venous blood specimen / Unknown 04/14/2024 12:38 PM EST 04/14/2024 1:44 PM EST us Miranda Maravilla DO LAB BLOOD ORDERABLES Final R esult [facility] [address] [place] [phone] * (ABNORMAL) Comprehensive Metabolic Panel (04/14/2024 12:38 PM EST) Sodium 142 135 - 145 mmol/L [facility] Potassium 4.0 3.3 - 5.1 mmol/L [facility] Chloride 105 96 - 108 mmol/L [facility] Carbon Dioxide 31(H) 22 - 29 mmol/L [facility] Anion Gap 10(L) 12 - 20 [facility] Urea Nitrogen (BUN) 11 9 - 16 mg/dL [facility] Creatinine, Serum 0.63 0.5 - 1.4 mg/dL [facility] Estimated Glomerular Filt Rate >60 [facility] Comment:Chronic Kidney Disea se: Estimated GFR < 60 mL/min/1.86i0Axetbe Kidney Disease: Estimated GFR < 15 mL/min/1.73m2 Glucose 119(H) 60 - 115 mg/dL [facility] Calcium 9.5 8.4 - 10.2 mg/dL [facility] Bilirubin, Total 0.4 0.0 - 1.0 mg/dL [facility] Aspartate Amino Transferase 23 5 - 31 U/L [facility] Alanine Aminotransferase 23 0 - 31 U/L [facility] Total Protein 7.2 6.5 - 8.0 g/dL [facility] Albumin Level 3.8 3.5 - 5.0 g/dL [facility] Alkaline Phosphatase 85 39 - 117 U/L [facility] 04/14/2024 12:3 8 PM EST 04/14/2024 1:44 PM EST us Generic External Data Provider LAB BLOOD ORDERAB LES Final Result Performing Organization Address City/State/[facility] Co de Phone Number [facility] [address] [place] [address] [phone] * PET/CT Bone Skull Base to Mid Thigh (02/12/2024 11:30 AM EST) Anatomical Region Laterality Modality Body Computed Tomogra phy 02/12/2024 11:3 0 AM EST Narrative 02/20/2024 2:08 PM EST ? [facility] ?[address] ?[place] [address] ? PET Report ? Signed ? Patient: Rickey,Brandon Y ?MR#: [id number] ? : 1975 ?Acct:[id number] ? Age/Sex: 49 / F ?ADM Date: 11/05/24 ? Loc: HO.PET ? Attending Dr: Christiana Romero MD ? Ordering Physician: Christiana Romero MD ?? Date of Service: 02/12/24 ?? Procedure(s): PET CT fusion skull to thigh ?? Accession Number(s): [id number] ? cc: Miranda Maravilla DO; Christiana Romero [...] DD/ 1130 ? TD/TT: 02/12/24 1315 ? Physical Security Manager: PK ? Procedure Note Mini Pinto - 02/20/2024 [place] [address] PET Report Signed Patient: Brandon Lang YMR#: [id number] : 1975Acct:[id number] Age/Sex: 49 / FADM Date: 02/12/24 Loc: HO.PET Attending Dr: Christiana Romero MD Ordering Physician: Christiana Romero MD Date of Service: 02/12/24 Procedure(s): PET CT fusion skull to thigh Accession Number(s): [id number] cc: Miranda Maravilla DO; Christiana Romero MD [...] by: Debbi Velasquez MD 02/20/2024 02:05 PM [facility] Dictated By: Debbi Velasquez MD Signed By: <Electronically signed by Debbi Velasquez MD in OV> 02/20/24 1405 DD/ 1130 TD/TT: 02/12/24 1315 Physical Security Manager: [facility] External Provider IMG CT PROCEDURES Final Result * (ABNORMAL) Cologuard?? colon cancer screening (03/04/2023 11:20 PM EST) Cologuard Result Positive( A) Negative 03/12/2023 10:35 AM EST [employer] (CLIA #:[id number]) Comment: POSITIVE TEST RESULT. A positive Cologuard [...] (Elliot Dye al, N Engl J Med 2014;370(14):5716-8669.) Cologuard may produce a false negative or false positive result (no colorectal cancer or precancerous polyp present at colonoscopy follow up). A negative Cologuard test result does not guarantee the absence of CRC or advanced adenoma (pre-cancer). The current Cologuard screening interval is every 3 years. ([place] [employer] and U.S. Multi-Society Task Force). Cologuard performance data in a 10,000 patient pivotal study using colonoscopy as the reference method can be accessed at the following location: www.[employer]/results. Additional description of the Cologuard test process, warnings and precautions can be found at [email or web address]. Stool specimen (specimen) 03/04/2023 11:20 PM EST 03/06/2023 5:06 PM EST Miranda Maravilla DO LAB MOLECULAR DIAGNOSTICS OR DERABLES Final Result [employer] (CLIA #:[id number]) [place] [address], * HEPATITIS C AB W/REFL TO HCV RNA, QN, PCR (10/24/2019 9:16 AM EDT) HEPATITIS C ANTIBODY NON-REACT QUIANA NON-REACT QUIANA [facility] INDEX 0.02 <1.00 [facility] Comment: ?? HCV antibody was non-reactive. There is no laboratory ?? evidence of HCV infection. ?? In most cases, no further action is required. However, if recent HCV exposure is suspected, a test for HCV RNA (test code 14328) is suggested. ?? For additional information please refer to http://ARI/faq/ZPP14k8 (This link is being provided for informational/ educational purposes only.) ?? HEPATITIS C ANTIBODY NON-REACT QUIANA NON-REACT QUIANA [facility] INDEX 0.02 <1.00 [facility] Comment: ?? HCV antibody was non-reactive. There is no laboratory ?? evidence of HCV infection. ?? In most cases, no further action is required. However, if recent HCV exposure is suspected, a test for HCV RNA (test code 48444) is suggested. ?? For additional information please refer to http://ARI/faq/FVS48y2 (This link is being provided for informational/ educational purposes only.) ?? HEPATITIS C ANTIBODY NON-REACT QUIANA NON-REACT [facility]IANA [facility] INDEX 0.02 <1.00 [facility] Comment: ?? HCV antibody was non-reactive. There is no laboratory ?? evidence of HCV infection. ?? In most cases, no further action is required. However, if recent HCV exposure is suspected, a test for HCV RNA (test code 47242) is suggested. ?? For additional information please refer to http://Vigme.[employer] Vision/faq/KQG73q9 (This link is being provided for informational/ educational purposes only.) ?? 10/24/2019 9:16 AM EDT Miranda Maravilla DO HISTORICAL/NON ORDERABLE LAB S Final Result [facility] [address] * HIV 1/2 ANTIGEN/ANTIBODY,FOURTH GENERATION W/RFL (10/24/2019 9:16 AM EDT) HIV-1/2 ANTIGEN AND ANTIBODIES, 4TH GENERATION W/ REFLEX NON-REACT QUIANA NON-REACT QUIANA [facility] Comment: HIV-1 antigen and HIV-1/HIV-2 [...] ? For additional information please refer to http://Vigme.WaveT[employer] Vision/faq/FLJ698 (This link is being provided for informational/ educational purposes only.) ? The performance of this assay has not been clinically validated in patients less than 2 years old. ?? HIV-1/2 ANTIGEN AND ANTIBODIES, 4TH GENERATION W/ REFLEX NON-REACT QUIANA NON-REACT QUIANA [facility] Comment: HIV-1 antigen and HIV-1/HIV-2 [...] ? For additional information please refer to http://Vigme.WaveT[employer] Vision/faq/JFX850 (This link is being provided for informational/ educational purposes only.) ? The performance of this assay has not been clinically validated in patients less than 2 years old. ?? HIV-1/2 ANTIGEN AND ANTIBODIES, 4TH GENERATION W/ REFLEX NON-REACT QUIANA NON-REACT QUIANA [facility] Comment: HIV-1 antigen and HIV-1/HIV-2 [...] ? For additional information please refer to http://Vigme.WaveT[employer] Vision/faq/YUW408 (This link is being provided for informational/ educational purposes only.) ? The performance of this assay has not been clinically validated in patients less than 2 years old. ?? 10/24/2019 9:16 AM EDT Miranda Maravilla DO LAB BLOOD ORDERABLES Final R esult [facility] [address] from Last 3 Months or Most Recently Relevant to Health Maintenance Insurance [employer] [facility] [facility] [employer] MEDIC[employer] Member Subscriber Plan / Payer (Ef fective 2022-Present) Name:Brandon Lang Member ID:[id number] Relation to Subscriber:Self Name:Brandon Lang Subscriber ID:[id number] Payer ID:[facility] Group ID:Not on file Type:Medicare Address: [facility] [address] [address] Advance Directives Documents on File Type Date Recorded Patient Feller Hand Expl anation Advance Directives and Livin g Will 06/13/2023 3:52 PM HCP Form Care Teams Door To Door Selling Agent Relationship Specialty Start Date End Date Miranda Maravilla DO [address] [place] [address] PCP - General Family Medicine 09/26/19
--- OUTSIDE RECORDS SUMMARY | 2024-05-14 09:33 | XMS_ITS | Encounter Summary ---
Author Organization [employer] Address [address] [facility] [address] [place] [address] Care Team Providers Care Stockroom Attendant Name Role Phone Miranda Maravilla DO Primary Care Provider + [phone] Reason for Visit * Reason Comments Cough Encounter Details Date Type Department Care Team ([facility] st Contact Info) Description 04/29/2024 6:20 PM EST Office Visit [facility] [address] [place], [place] [phone] Oliver Bates MD [address] [place], [place] [phone] Viral URI Social History Tobacco Use Types [...] AM EST Narrative 04/30/2024 1:31 PM EST ?[facility] ?[address] ?[place] [address] ?XRay Report ? Signed ? Patient: Brandon Lang ?MR#: [id number] ? : 1975 ?Acct:[id number] ? Age/Sex: 49 / F ?ADM Date: 01/22/25 ? Loc: HO.HHCX ? Attending Dr: Oliver Bates MD ? Ordering Physician: Oliver Bates MD ?? Date of Service: 04/30/24 ?? Procedure(s): XR chest 2V ?? Accession Number(s): [id number] ? cc: Oliver Bates MD ? EXAMINATION: [...] DD/ 1121 ? TD/TT: 04/30/24 1200 ? Auto Hiker: MSM ? Procedure Note Mini Pinto - 04/30/2024 [place] [address] XRay Report Signed Patient: Brandon Lang YMR#: [id number] : 1975Acct:[id number] Age/Sex: 49 / FADM Date: 04/30/24 Loc: HO.HHCX Attending Dr: Oliver Bates MD Ordering Physician: Oliver Bates MD Date of Service: 04/30/24 Procedure(s): XR chest 2V Accession Number(s): [id number] cc: Oliver Bates MD EXAMINATION: XR CHEST [...] 04/30/24 1328 DD/ 1121 TD/TT: 04/30/24 1200 Auto Hiker: VIOLETTE Oliver Bates MD IMG XR PROCEDURES Final Result * POCT Rapid Influenza B ONTIVEROS ID NOW (04/29/2024 7:14 PM EST) Influenza B Negative Negative, Indeterminate [facility] QC Media Lot # [id number] [facility] Lot# Expiration Date [facility] Swab 04/29/2024 7:14 PM EST Oliver Bates MD POINT OF CARE TEST ENTER/EDIT OR DERABLES Final Result Performing Organization Address [facility] de Phone Number [facility] [address] [place] [phone] * POCT Rapid Influenza A ONTIVEROS ID NOW (04/29/2024 7:14 PM EST) Influenza A Negative Negative, Indeterminate [facility] QC Media Lot # [id number] [facility] Lot# Expiration Date [facility] Swab 04/29/2024 7:14 PM EST us Oliver Bates MD POINT OF CARE TEST ENTER/EDIT OR DERABLES Final Result Performing Organization Address [facility] Co de Phone Number [facility] [address] [place] [phone] * POCT Rapid Covid-19 BinaxNOW (04/29/2024 7:14 PM EST) [facility] Rapid COVID Ag Negative QC Media Lot # [id number] Lot# Expiration Date [id number] Swab 04/29/2024 7:14 PM EST Oliver Bates MD POINT OF CARE TEST ENTER/EDIT OR DERABLES Final Result * Respiratory Viral Panel PCR (04/29/2024 12:00 AM EST) [facility] Adenovirus PCR Not Detected Not Detect. [facility] Bordetella pertussis PCR Not Detected Not Detect. [facility] Comment:Interpret results wi th caution. If B. pertussis isspecifically suspected, additional testing using analternate method is recommended. Bordetella parapertussis PCR Not Detected Not Detect. [facility] Chlamydia pneumoniae PCR Not Detected Not Detect. [facility] Coronavirus 229E PCR Not Detected Not Detect. [facility] Coronavirus HKU1 PCR Not Detected Not Detect. [facility] Coronavirus NL63 PCR Not Detected Not Detect. [facility] Coronavirus OC43 PCR Not Detected Not Detect. [facility] SARS-CoV-2 PCR Not Detected Not Detect. [facility] Comment:SARS-CoV-2 not detec michael by real-time RT-PCR.Note: If clinical suspicion for Sars-CoV-2 is high, continueto maintain precautions and consider repeat testing.Test results should be interpreted in the context ofclinical findings and other laboratory data.Rare polymorphisms exist that could lead to false-negativeor false-positive results. If results do not match theclinical findings, additional testing should be considered.Results reported to [facility].This test has been authorized by the FDA under the EmergencyUse Authorization (EUA) for use by authorized laboratories. Influenza A PCR Not Detected Not Detect. [facility] Influenza B PCR Not Detected Not Detect. [facility] Human metapneumovirus PCR Not Detected Not Detect. [facility] Rhino/Enterovirus PCR Not Detected Not Detect. [facility] Mycoplasma pneumoniae PCR Not Detected Not Detect. [facility] Parainfluenza 1 PCR Not Detected Not Detect. [facility] Parainfluenza 2 PCR Not Detected Not Detect. [facility] Parainfluenza 3 PCR Not Detected Not Detect. [facility] Parainfluenza 4 PCR Not Detected Not Detect. [facility] RSV PCR Not Detected Not Detect. [facility] Resp Panel NA Note See Note H [facility] Comment:All results must be correlated [...] assay is performed by Multiplexed PCR, utilizing [employer]. 04/29/2024 04/29/2024 us Oliver Bates MD LAB BLOOD ORDERABLES Final Resul t [facility] [address] [place] [phone] documented in this encounter Visit Diagnoses Diagnosis Viral URI Acute upper respiratory infections of unspecified site documented in this encounter Additional Health Concerns Assessment Noted Time PHQ-9 Depression Total Score: 7 08/20/19 24 10:35 AM EDT documented as of this encounter Care Teams Stockroom Attendant Relationship Specialty Start Date End Date Miranda Maravilla DO [address] [place] [phone] PCP - General Family Medicine 09/26/19 documented as of this encounter
--- OUTSIDE RECORDS SUMMARY | 2024-05-14 09:33 | XMS_ITS | Encounter Summary ---
Author Organization [employer] Address [address] [facility] [address] [place] [address] Care Team Providers Care Band Tacker Name Role Phone Miranda Maravilla Primary Care Provider + [phone] Encounter Details Date Type Department Care Team (Late st Contact Info) Description 04/25/2024 Orders Only [facility] [address] [place], [place] [phone] Provider, MD Jo Ann Social History Tobacco [...] documented as of this encounter Care Teams Band Tacker Relationship Specialty Start Date End Date Miranda Maravilla DO [address] [place] [address] PCP - General Family Medicine 09/26/19 documented as of this encounter
--- OUTSIDE RECORDS SUMMARY | 2024-05-14 09:33 | XMS_ITS | Encounter Summary ---
Author Organization [employer] Address [address] [facility] [address] Floor [address] Care Team Providers Care Sketch Maker Name Role Phone Miranda Maravilla DO Primary Care Provider + [phone] Reason for Visit * Reason Comments Cough Nasal Congestion Encounter Details Date Type Department Care Team ([facility] st Contact Info) Description 04/22/2024 11:00 AM EST Office Visit [facility] [address] [place] [address] Madhu Anthony MD [address] [place] [address] Moderate persistent asthma with acute exacerbation (Primary [...] Brandon Lang is a 49 y.o. female. Facing Baster: [employer] Here with mother. HPI Yesterday Brandon had onset of productive cough, wheezing, SOB, tactile fever. No n/v/d. Taking p.o. well. Taking Tylenol, albuterol via neb q4h, Breo Ellipta. Lives with parents. Mother has similar. LMP=1 year ago. Mother states missed menses due to chemotherapy for breast cancer. She is not sexually active. Never smoked. Stopped going to [employer] when she started chemotherapy; finished chemo and radiation last week. Patient Active Problem List Diagnosis Allergic rhinitis Cholelithiasis Chronic gastroesophageal reflux disease Intermittent explosive disorder Moderate intellectual disability Moderate persistent asthma BMI 40.0-44.9, adult ([facility]) GEORGE (obstructive sleep apnea) Oropharyngeal dysphagia Scoliosis Obesity hypoventilation syndrome ([facility]) Depressive disorder Chronic constipation History of COVID-19 Pulmonary hypertension ([facility]) Supplemental oxygen dependent Fatty liver Swelling of both lower extremities Healthcare maintenance Cancer of left breast, stage 3 ([facility]) Tinea pedis of both feet The following [...] NOW Rapid Molecular) (04/22/2024 12:00 PM EST) [facility] Influenza B Negative Negative, Indeterminate [facility] Swab 04/22/2024 12:0 0 PM EST Madhu Anthony MD POINT OF CARE TEST ENTER/EDIT OR DERABLES Final Result Performing Organization Address [facility] Co de Phone Number [facility] [address] [place] [phone] * Influenza A (ID NOW Rapid Molecular) (04/22/2024 12:00 PM EST) [facility] Influenza A Negative Negative, Indeterminate [facility] Swab 04/22/2024 12:0 0 PM EST Madhu Anthony MD POINT OF CARE TEST ENTER/EDIT OR DERABLES Final Result Performing Organization Address [facility] Co de Phone Number [facility] [address] [place] [phone] * POCT Rapid COVID Ag (04/22/2024 12:00 PM EST) Pathologist [facility] Rapid COVID Ag Negative [facility] Swab 04/22/2024 12:0 0 PM EST us Madhu Anthony MD POINT OF CARE TEST ENTER/EDIT OR DERABLES Final Result [facility] [address] [place] [phone] documented in this encounter Visit Diagnoses Diagnosis Moderate persistent asthma with acute exacerbation- Primary Viral URI Acute upper respiratory infections of unspecified site documented in this encounter Additional Health Concerns Assessment Noted Time PHQ-9 Depression Total Score: 7 08/20/19 24 10:35 AM EDT documented as of this encounter Care Teams Sketch Maker Relationship Specialty Start Date End Date Miranda Maravilla DO [address] [place] [address] PCP - General Family Medicine 09/26/19 documented as of this encounter
--- OUTSIDE RECORDS SUMMARY | 2024-05-14 09:33 | XMS_ITS | Encounter Summary ---
Author Organization [employer] Address [address] [facility] [address] [place] [address] Care Team Providers Care Central Office Installer Name Role Phone Miranda Maravilla DO Primary Care Provider + [phone] Reason for Visit * Reason Comments Med Refill Encounter Details Date Type Department Care Team ([facility] st Contact Info) Description 07/22/2022 Refill [facility] [address] [place] [address] Miranda Maravilla DO [address] [place], [place] [phone] Social History Tobacco Use Types Packs/Day Years [...] documented as of this encounter Care Teams Central Office Installer Relationship Specialty Start Date End Date Miranda Maravilla DO [address] [place] [address] PCP - General Family Medicine 09/26/19 documented as of this encounter
--- OUTSIDE RECORDS SUMMARY | 2024-05-14 09:33 | XMS_ITS | Encounter Summary ---
Author Organization [employer] Address [address] [facility] [address] [place] [address] Care Team Providers Care Model Dresser Name Role Phone Miranda Maravilla DO Primary Care Provider + [phone] Reason for Visit * Reason Comments Med Refill Encounter Details Date Type Department Care Team ([facility] st Contact Info) Description 05/18/2022 Refill [facility] [address] [place] [address] Miranda Maravilla DO [address] [place], [place] [phone] Social History Tobacco Use Types Packs/Day Years [...] documented as of this encounter Care Teams Model Dresser Relationship Specialty Start Date End Date Miranda Maravilla DO [address] [place] [address] PCP - General Family Medicine 09/26/19 documented as of this encounter
== END 2024-05-14 09:45 | disposition home or self-care (01) ==
PROVIDERS: Visit Provider Surgery
DX: K80.50 Calculus of bile duct without cholangitis or cholecystitis without obstruction (principal); Z45.2 Encounter for adjustment and management of vascular access device
CPT/HCPCS: 99214

== ENCOUNTER → 2024-05-14 09:13 | Outpatient (BNVA) | payer MEDICARE, MEDICAID, SELFPAY | PROVIDERS: Visit Provider Surgery | DX: Z45.2 Encounter for adjustment and management of vascular access device (principal); K80.50 Calculus of bile duct without cholangitis or cholecystitis without obstruction | CPT/HCPCS: 99212 ==

== ENCOUNTER 2024-06-06 09:55 | Outpatient (REF) | payer MEDICARE, MEDICAID, SELFPAY ==
--- NOTE | ~2024-06-06 | MM_ITS ---
EXAMINATION: DXA BONE DENSITY AXIAL HISTORY: Estrogen deficiency TECHNIQUE: Traction Dual energy absorptiometry (DEXA) of the lumbar spine, total left hip, and femoral neck was performed. COMPARISON: There are no prior studies for comparison. FINDINGS: The bone mineral density of the lumbar spine is 1.053 with a T-score of -1.2, and a Z-score of -2.0. The bone mineral density of the left total hip is 0.948 with a T-score of -0.5, and a Z-score of -0.9. The bone mineral density of the left femoral neck is 0.823 with a T-score of -1.5, and a Z-score of -1.5. MM/XR DEXA axial skeleton IMPRESSION: Based on bone mineral density, and according to World Health Organization (WHO) criteria, the diagnosis is consistent with osteopenia. All bone density values are in grams per centimeter squared (g/cm2). Statistically, 68% of repeat scans fall within 1 SD (+/- 0.010 g/cm2 for AP spine L1-L4) and 1 SD (+/- 0.012 g/cm2 for femur total) FRAX is a trademark of the [employer]'s [place] [employer] Metabolic Bone Disease, a World Health Organization (WHO) Collaborating Center. Electronically signed by: Felix Corral MD 06/09/2024 07:01 AM [facility]
--- OUTSIDE RECORDS SUMMARY | 2024-06-06 10:57 | XMS_ITS | Encounter Summary ---
Author Organization [employer] Address [address] [facility] [address] [place] [address] Care Team Providers Care Burn Out Tender Lace Name Role Phone Miranda Maravilla DO Primary Care Provider + [phone] Reason for Visit * Reason Onset Date Comments Recall Appt. 05/28/2024 Encounter Details Date Type Department Care Team ([facility] st Contact Info) Description 05/28/2024 Telephone [facility] [address] [place] [address] Miranda Maravilla DO [address] [place], [place] [id number] Recall Appt. Social History Tobacco Use Types Packs/Day Years [...] encounter Miscellaneous Notes * Telephone Encounter - Marissa Reynoso MA - 05/28/2024 9:15 AM EST Spoke w/patient schedule PE appt. 07/30/24 at 9:30am. Mailed appt. Letter. documented in this encounter Plan of Treatment Upcoming Encounters Date Type Department Care Team (Late st Contact Info) Description 07/30/2024 9:30 AM EDT Office Visit [facility] [address] [place] [address] Miranda Maravilla DO [address] [place] [address] documented as of this encounter Visit Diagnoses Not on filedocumented in this encounter Additional Health Concerns Assessment Noted Time PHQ-9 Depression Total Score: 7 08/20/19 24 10:35 AM EDT documented as of this encounter Care Teams Burn Out Tender Lace Relationship Specialty Start Date End Date Miranda Maravilla DO [address] [place] [address] PCP - General Family Medicine 09/26/19 documented as of this encounter
--- OUTSIDE RECORDS SUMMARY | 2024-06-06 10:57 | XMS_ITS | Clinical Summary ---
Author Organization [employer] Address [address] [facility] [address] [place] [address] Care Team Providers Care Commercial Reporter Name Role Phone Miranda Maravilla DO Primary Care Provider + [phone] Allergies No known active allergies Medications ARIPiprazole [...] NEEDED FOR MUSCLE SPASMS 30 tablet 3 024 Active naproxen (Naprosyn) 500 MG tabletIndications: Pain TAKE 1 TABLET BY MOUTH TWICE DAILY WITH FOOD NEEDED FOR PAIN 20 tablet 1 024 Active calcium carbonate (Calcium Antacid) 500 MG [...] tablet 1x/day for 4 days. 6 tablet 025 Active triamcinolone (Kenalog) 0.1 % ointment APPLY 1 GRAM TOPICALLY TO AFFECTED AREA(S) TWICE DAILY IN THE MORNING AND AT BEDTIME NEEDED RASH 30 g 1 025 Active acetaminophen (Tylenol 8 Hour) 650 MG ER tablet TAKE 1 TABLET BY MOUTH EVERY 6 HOURS NEEDED FOR MILD PAIN 60 tablet 1 025 Active triamcinolone (Kenalog) 0.1 % ointment APPLY 1 GRAM TOPICALLY TO AFFECTED AREA(S) TWICE DAILY IN THE MORNING AND AT BEDTIME NEEDED FOR RASH 30 g 1 024 2024 Discontinued acetaminophen (Tylenol 8 Hour) 650 MG ER tablet TAKE 1 TABLET BY MOUTH EVERY 6 HOURS NEEDED FOR MILD PAIN 60 tablet 1 024 2024 Discontinued Active Problems Problem Noted Date Diagnosed Date [...] Encounters Date Type Department Care Team Description 06/01/2024 Refill [facility] [address] [place] [address] Miranda Maravilla DO 05/28/2024 Telephone [facility] [address] [place] [phone] Miranda Maravilla DO Recall Appt. 05/28/2024 Travel 05/17/2024 Refill [facility] [address] [place] [phone] Miranda Maravilla DO 04/29/2024 6:20 PM EST Office Visit [facility] [address] [place] [address] Oliver Bates MD Viral URI 04/25/2024 Orders Only [facility] [place] [address] ProviderJo Ann MD 04/22/2024 11:00 AM EST Office Visit [facility] [address] [place] [phone] Madhu Anthony MD Moderate persistent asthma with acute exacerbation (Primary Dx); Viral URI 04/18/2024 3:00 PM EST Office Visit [facility] [address] [place] [phone] Eusebia Valdez MD Onychodystrophy (Primary Dx) 04/18/2024 Travel 04/14/2024 12:00 PM EST Office Visit [facility] [address] [place] [phone] Miranda Maravilla DO Epigastric pain (Primary Dx); Fatty liver; Abnormal finding of blood chemistry, unspecified; Body mass index (BMI) 40.0-44.9, adult ([facility]); Mixed hyperlipidemia; Encounter for immunization 04/14/2024 Orders Only GENERIC EXTERNAL DATA DEPARTMENT Provider, Generic External Data 04/14/2024 Travel 04/11/2024 Refill [facility] [address] [place] [phone] Miranda Maravilla DO Pain 04/08/[address] [phone] Miranda Maravilla DO Nurse Triage 04/04/2024 Refill [facility] [address] [place] [phone] Miranda Maravilla DO 03/14/2024 Telephone [facility] [address] [place] [address] [phone] Conchita Durham, [place] Nebulizer physician order 03/12/2024 Refill [facility] [address] [place] [phone] Miranda Maravilla DO from Last 3 Months Immunizations Name Administration [...] 04/29/2024 5:10 PM EST Plan of Treatment Upcoming Encounters Date Type Department Care Team (Late st Contact Info) Description 07/30/2024 9:30 AM EDT Office Visit [facility] [address] [place] [address] Miranda Maravilla DO [address] [place] [address] Health Maintenance Due Date Last Done Comments [...] pain Abnormal finding of blood chemistry, unspecified LAB COLOGUARD?? COLON CANCER SCREEN Routine 03/04/2023 [...] EST Narrative 05/06/2024 1:05 PM EST ? [facility] ?[address] ?[place] [address] ? Ultrasound Report ? Signed ? Patient: Brandon Lang ?MR#: [id number] ? : 1975 ?Acct:[id number] ? Age/Sex: 49 / F ?ADM Date: 01/28/25 ? Loc: HO.US ? Attending Dr: Miranda Maravilla DO ? Ordering Physician: Miranda Maravilla DO ?? Date of Service: 05/06/24 ?? Procedure(s): US abdomen complete ?? Accession Number(s): [id number] ? cc: Miranda Maravilla DO; Jarrett Van [...] DD/ 1303 ? TD/TT: 05/06/24 1303 ? Narcotics And Vice Detective: ? Procedure Note Mini Pinto - 05/06/2024 [place] [address] Ultrasound Report Signed Patient: Brandon Lang YMR#: [id number] : 1975Acct:[id number] Age/Sex: 49 / FADM Date: 05/06/24 Loc: HO.US Attending Dr: Miranda Maravilla DO Ordering Physician: Miranda Maravilla DO Date of Service: 05/06/24 Procedure(s): US abdomen complete Accession Number(s): [id number] cc: Miranda Maravilla DO; Jarrett Van MD [...] 05/06/24 1304 DD/ 1303 TD/TT: 05/06/24 1303 Narcotics And Vice Detective: us Miranda Maravilla DO IMG US PROCEDURES Final Resu lt * XR Chest 2 Views (04/30/2024 11:21 AM EST) Anatomical Region Laterality Modality Chest Radiographic Maribel ging 04/30/2024 11:2 1 AM EST Narrative 04/30/2024 1:31 PM EST ?[facility] ?[address] ?[place] [address] ?XRay Report ? Signed ? Patient: Brandon Lang Y ?MR#: [id number] ? : 1975 ?Acct:[id number] ? Age/Sex: 49 / F ?ADM Date: 04/30/24 ? Loc: HO.HHCX ? Attending Dr: Oliver Bates MD ? Ordering Physician: Oliver Bates MD ?? Date of Service: 04/30/24 ?? Procedure(s): XR chest 2V ?? Accession Number(s): [id number] ? cc: Oliver Bates MD ? EXAMINATION: [...] DD/ 1121 ? TD/TT: 04/30/24 1200 ? Narcotics And Vice Detective: MSM ? Procedure Note Donotuseinterpreter, Image - 04/30/2024 [place] [address] XRay Report Signed Patient: Brandon Lang YMR#: [id number] : 1975Acct:[id number] Age/Sex: 49 / FADM Date: 04/30/24 Loc: HO.HHCX Attending Dr: Oliver Bates MD Ordering Physician: Oliver Bates MD Date of Service: 04/30/24 Procedure(s): XR chest 2V Accession Number(s): [id number] cc: Oliver Bates MD EXAMINATION: XR CHEST [...] by: Guero Cartwright MD 04/30/2024 01:28 PM [facility] Dictated By: Guero Cartwright MD Signed By: <Electronically signed by Guero Cartwright MD in OV> 04/30/24 1328 DD/ 1121 TD/TT: 04/30/24 1200 Narcotics And Vice Detective: VIOLETTE Oliver Bates MD IMG XR PROCEDURES Final Result * POCT Rapid Influenza B ONTIVEROS ID NOW (04/29/2024 7:14 PM EST) Only the most recent of2 resultswithin the time period is included. Influenza B Negative Negative, Indeterminate [facility] QC Media Lot # [id number] [facility] Lot# Expiration Date [facility] Swab 04/29/2024 7:14 PM EST Oliver Bates MD POINT OF CARE TEST ENTER/EDIT OR DERABLES Final Result Performing Organization Address [facility] Co de Phone Number [facility] [address] [place] [phone] * POCT Rapid Influenza A ONTIVEROS ID NOW (04/29/2024 7:14 PM EST) Only the most recent of2 resultswithin the time period is included. Influenza A Negative Negative, Indeterminate [facility] QC Media Lot # [id number] [facility] Lot# Expiration Date [facility] Swab 04/29/2024 7:14 PM EST Oliver Bates MD POINT OF CARE TEST ENTER/EDIT OR DERABLES Final Result Performing Organization Address [facility] Co de Phone Number [facility] [address] [place] [phone] * POCT Rapid Covid-19 BinaxNOW (04/29/2024 7:14 PM EST) Only the most recent of2 resultswithin the time period is included. [facility] Rapid COVID Ag Negative QC Media Lot # [id number] Lot# Expiration Date [id number] Swab 04/29/2024 7:14 PM EST Oliver Bates MD POINT OF CARE TEST ENTER/EDIT OR DERABLES Final Result * Respiratory Viral Panel PCR (04/29/2024 12:00 AM EST) [facility] Adenovirus PCR Not Detected Not Detect. [facility] Bordetella pertussis PCR Not Detected Not Detect. [facility] Comment:Interpret results wi th caution. If B. pertussis isspecifically suspected, additional testing using analternate method is recommended. Bordetella parapertussis PCR Not Detected Not Detect. [facility] Chlamydia pneumoniae PCR Not Detected Not Detect. [facility] Coronavirus 229E PCR Not Detected Not Detect. [facility] Coronavirus HKU1 PCR Not Detected Not Detect. [facility] Coronavirus NL63 PCR Not Detected Not Detect. [facility] Coronavirus OC43 PCR Not Detected Not Detect. [facility] SARS-CoV-2 PCR Not Detected Not Detect. [facility] Comment:SARS-CoV-2 not detec michael by real-time RT-PCR.Note: If clinical suspicion for Sars-CoV-2 is high, continueto maintain precautions and consider repeat testing.Test results should be interpreted in the context ofclinical findings and other laboratory data.Rare polymorphisms exist that could lead to false-negativeor false-positive results. If results do not match theclinical findings, additional testing should be considered.Results reported to [facility].This test has been authorized by the FDA under the EmergencyUse Authorization (EUA) for use by authorized laboratories. Influenza A PCR Not Detected Not Detect. [facility] Influenza B PCR Not Detected Not Detect. [facility] Human metapneumovirus PCR Not Detected Not Detect. [facility] Rhino/Enterovirus PCR Not Detected Not Detect. [facility] Mycoplasma pneumoniae PCR Not Detected Not Detect. [facility] Parainfluenza 1 PCR Not Detected Not Detect. [facility] Parainfluenza 2 PCR Not Detected Not Detect. [facility] Parainfluenza 3 PCR Not Detected Not Detect. [facility] Parainfluenza 4 PCR Not Detected Not Detect. [facility] RSV PCR Not Detected Not Detect. [facility] Resp Panel NA Note See Note [facility] Comment:All results must be correlated [...] assay is performed by Multiplexed PCR, utilizing Jigsaw Meeting Film Array. 04/29/2024 04/29/2024 Oliver Bates MD LAB BLOOD ORDERABLES Final Resul t [facility] [address] [place] [phone] * Dermatopathology Report (04/18/2024 2:57 PM EST) Historical Provider LAB BLOOD ORDERABLES Barby l Result * Vitamin D, 25-Hydroxy, Total, Immunoassay (04/14/2024 12:38 PM EST) Vitamin D 25-OH Total 42.5 >30 ng/mL [facility] Comment:Health Based Referen ce Values*< 20 ng/mL Pstybyapz70-73 ng/mL Insufficient> 30 ng/mL Sufficient*Sarah MENDEZ. N [...] DO LAB BLOOD ORDERABLES Final R esult [facility] [address] [place] [phone] * (ABNORMAL) CBC auto differential (04/14/2024 12:38 PM EST) White Blood Count 5.0 4.8 - 10.8 X10*3/uL [facility] Red Blood Count 4.70 4.20 - 5.50 X10*6/uL [facility] Hemoglobin 12.7 12.0 - 16.0 g/dl [facility] Hematocrit 40.7 37.0 - 47.0 % [facility] Mean Corpuscular Volume 86.6 80.0 - 98.0 fL [facility] Mean Corpuscular Hemoglobin 27.0 27.0 - 33.0 pg [facility] Mean Corpuscular HGB Conc 31.2 31.0 - 35.0 g/dl [facility] Red Cell Distribution Width 17.2(H) 11.0 - 16.0 % [facility] Platelet Count 155(L) 160 - 400 X10*3/uL [facility] Mean Platelet Volume 11.1 9.4 - 12.3 fL [facility] Neutrophils Percent Auto 73.6(H) 45 - 73 % [facility] Imm Gran Pct Auto 0.4 0.0 - 0.4 % [facility] Lymphocytes Percent Auto 11.3(L) 20 - 40 % [facility] Monocytes Percent Auto 8.7 2 - 11 % [facility] Eosinophils Percent Auto 5.6(H) 0 - 4 % [facility] Basophils Percent Auto 0.4 0 - 2 % [facility] NRBC Pct Auto 0.0 0.0 - 0.2 /100WBC [facility] Neutrophils Absolute Auto 3.7 2.0 - 8.3 x10*3/uL [facility] Imm Gran Abs Auto 0.02 0.00 - 0.03 X10*3/uL [facility] Lymphocytes Absolute Auto 0.6(L) 1.2 - 4.9 X10*3/uL [facility] Monocytes Absolute Auto 0.4 0.1 - 1.2 X10*3/uL [facility] Eosinophils Absolute Auto 0.3 0.0 - 0.4 X10*3/uL [facility] Basophils Absolute Auto 0.0 0.0 - 0.2 X10*3/uL [facility] NRBC Abs Auto 0.000 0.0 - 0.012 X10*3/uL [facility] 04/14/2024 12:3 8 PM EST 04/14/2024 1:44 PM EST us Generic External Data Provider LAB BLOOD ORDERAB LES Final Result [facility] [address] [place] [phone] * Cancer antigen 27.29 (04/14/2024 12:38 PM EST) CA 27.29 16 <38 U/mL [facility] Comment:This test was perfor med using the SiemensChemiluminescent method. Values obtained fromdifferent assay methods cannot be usedinterchangeably. CA 27.29 levels, regardless ofvalue, should not be interpreted as absoluteevidence of the presence or absence of disease.The CA 27.29 result may be increased on average 5- 10%,relative to results previously obtained with thismethod due to a recent calibrator adjustment made inOcto2023 by the reagent uke driver. In the lowrange for this assay (<38 U/mL), this increase may begreater than 20%. Serially monitored results shouldalways be used in conjunction with other diagnosticprocedures, including clinical evaluation.THIS TEST WAS PERFORMED AT:[facility] [address] [id number] ROSE MD 04/14/2024 12:3 8 PM EST 04/14/2024 1:44 PM EST Generic External Data Provider LAB BLOOD ORDERAB LES Final Result Performing Organization Address [facility] Co de Phone Number [facility] [address] [place] [address] [phone] * Alpha-Fetoprotein, Tumor Marker (04/14/2024 12:38 PM EST) Pathologist [facility] Alpha Fetoprotein 3.1 ng/mL [facility] Comment:Reference Range: <6. 1The use of AFP as a tumor marker in females is not recommended.This test was performed using the Jessica Coulterchemiluminescent method. Values obtained fromdifferent assay methods cannot be usedinterchangeably. AFP levels, regardless ofvalue, should not be interpreted as absoluteevidence of the presence or absence of disease.THIS TEST WAS PERFORMED AT:[facility] [address] [id number] ROSE MD Blood Venous blood specimen / Unknown 04/14/2024 12:38 PM EST 04/14/2024 1:44 PM EST Miranda Maravilla DO LAB BLOOD ORDERABLES Final R esult Performing Organization Address [facility] Co de Phone Number [facility] [address] [place] [phone] * (ABNORMAL) CBC (04/14/2024 12:38 PM EST) White Blood Count 4.9 4.8 - 10.8 X10*3/uL [facility] Red Blood Count 4.69 4.20 - 5.50 X10*6/uL [facility] Hemoglobin 12.5 12.0 - 16.0 g/dl [facility] Hematocrit 40.6 37.0 - 47.0 % [facility] Mean Corpuscular Volume 86.6 80.0 - 98.0 fL [facility] Mean Corpuscular Hemoglobin 26.7(L) 27.0 - 33.0 pg [facility] Mean Corpuscular HGB Conc 30.8(L) 31.0 - 35.0 g/dl [facility] Red Cell Distribution Width 17.2(H) 11.0 - 16.0 % [facility] Platelet Count 161 160 - 400 X10*3/uL [facility] Mean Platelet Volume 11.3 9.4 - 12.3 fL [facility] NRBC Pct Auto 0.0 0.0 - 0.2 /100WBC [facility] NRBC Abs Auto 0.000 0.0 - 0.012 X10*3/uL [facility] Blood Venous blood specimen / Unknown 04/14/2024 12:38 PM EST 04/14/2024 1:44 PM EST [facility] LAB BLOOD ORDERABLES Final R esult Performing Organization Address [facility]/ZIP Co de Phone Number [facility] [address] [place] [phone] * Lipase (04/14/2024 12:38 PM EST) Lipase 31 8 - 78 U/L [facility] Blood Venous blood specimen / Unknown 04/14/2024 12:38 PM EST 04/14/2024 1:44 PM EST Miranda [facility] LAB BLOOD ORDERABLES Final R esult Performing Organization Address [facility]/ZIP Co de Phone Number [facility] [address] [place] [phone] * Hemoglobin A1c (04/14/2024 12:38 PM EST) Hemoglobin A1c 5.3 <6.0 % [facility] Comment:Hemoglobin A1C Refer ence Range Adults: 4.8 - 6.0 % Non diabetic: < 6.0 % Goal: < 7.0 %Additional Action Suggested: > 8.0 %Note: Hemoglobin A1c results are invalid for patients with abnormal amounts of HbF. Blood transfusions may impact the HbA1c concentration in the patient sample. Estimated Average Glucose 105 mg/dL [facility] Comment:eAG = Estimated ave rage glucose which is %A1C expressed asaverage glucose, using the formula of the U3M-VqyxgvwFqissnt Glucose study (ADAG), Diabetes Care, Vol.31,#8,2007 Blood Venous blood specimen / Unknown 04/14/2024 12:38 PM EST 04/14/2024 1:44 PM EST us [facility] LAB BLOOD ORDERABLES Final R esult Performing Organization Address [facility]/ZIP Co de Phone Number [facility] [address] [place] [phone] * Amylase (04/14/2024 12:38 PM EST) Amylase 57 28 - 100 U/L [facility] Blood Venous blood specimen / Unknown 04/14/2024 12:38 PM EST 04/14/2024 1:44 PM EST [facility] LAB BLOOD ORDERABLES Final R esult Performing Organization Address [facility]/ZIP Co de Phone Number [facility] [address] [place] [phone] * Hepatic Function Panel (04/14/2024 12:38 PM EST) Bilirubin, Direct 0.1 0.0 - 0.5 mg/dL [facility] Blood Venous blood specimen / Unknown 04/14/2024 12:38 PM EST 04/14/2024 1:44 PM EST us Miranda Maravilla DO LAB BLOOD ORDERABLES Final R esult Performing Organization Address [facility]/ZIP Co de Phone Number [facility] [address] [place] [phone] * (ABNORMAL) Lipid Panel, Standard (04/14/2024 12:38 PM EST) Triglycerides 82 <150 mg/dL [facility] Comment:Desirable Triglyceri de: less than 150 mg/dLBorderline High Triglyceride 150-199 mg/dLHigh Triglyceride: 200-499 mg/dLVery High Triglyceride: greater than or equal to 5OO mg/dL Cholesterol 199 <200 mg/dL [facility] Comment:Desirable Cholestero l: less than 200 mg/dLBorderline High Cholesterol: 200-239 mg/dLHigh Cholesterol: greater than 239 mg/dL LDL Cholesterol Calculated 104(H) <100 mg/dL [facility] Comment:Desirable LDL: less than 100 mg/dLNear Optimal/Above Optimal LDL: 110- 129 mg/dLBorderline High LDL: 130-159 mg/dLHigh LDL: 160-189 mg/dLVery High LDL: greater than or equal to 190 mg/dL HDL Cholesterol 79 >40 mg/dL [facility] Comment:Desirable HDL: great er than 40 mg/dL Note: This HDL assay may give artificially low results in patients with liver disease. Blood Venous blood specimen / Unknown 04/14/2024 12:38 PM EST 04/14/2024 1:44 PM EST us Miranda Maravilla DO LAB BLOOD ORDERABLES Final R esult Performing Organization Address [facility]/ZIP Co de Phone Number [facility] [address] [place] [phone] * (ABNORMAL) Comprehensive Metabolic Panel (04/14/2024 12:38 PM EST) Sodium 142 135 - 145 mmol/L [facility] Potassium 4.0 3.3 - 5.1 mmol/L [facility] Chloride 105 96 - 108 mmol/L [facility] Carbon Dioxide 31(H) 22 - 29 mmol/L [facility] Anion Gap 10(L) 12 - 20 [facility] Urea Nitrogen (BUN) 11 9 - 16 mg/dL [facility] Creatinine, Serum 0.63 0.5 - 1.4 mg/dL [facility] Estimated Glomerular Filt Rate >60 [facility] Comment:Chronic Kidney Disea se: Estimated GFR < 60 mL/min/1.86q4Rjvnqu Kidney Disease: Estimated GFR < 15 mL/min/1.73m2 Glucose 119(H) 60 - 115 mg/dL [facility] Calcium 9.5 8.4 - 10.2 mg/dL [facility] Bilirubin, Total 0.4 0.0 - 1.0 mg/dL [facility] Aspartate Amino Transferase 23 5 - 31 U/L [facility] Alanine Aminotransferase 23 0 - 31 U/L [facility] Total Protein 7.2 6.5 - 8.0 g/dL [facility] Albumin Level 3.8 3.5 - 5.0 g/dL [facility] Alkaline Phosphatase 85 39 - 117 U/L [facility] 04/14/2024 12:3 8 PM EST 04/14/2024 1:44 PM EST us Generic External Data Provider LAB BLOOD ORDERAB LES Final Result [facility] [address] [place] [phone] * (ABNORMAL) Cologuard?? colon cancer screening (03/04/2023 11:20 PM EST) Cologuard Result Positive( A) Negative 03/12/2023 10:35 AM EST [employer] (CLIA #:[id number]) Comment: POSITIVE TEST RESULT. A positive Cologuard [...] screened with both Cologuard and colonoscopy. (Elliot Antonio. et al, N Engl J Med 2014;370(14):8431-1267.) Cologuard may produce a false negative or false positive result (no colorectal cancer or precancerous polyp present at colonoscopy follow up). A negative Cologuard test result does not guarantee the absence of CRC or advanced adenoma (pre-cancer). The current Cologuard screening interval is every 3 years. ([place] [employer] and U.S. Multi-Society Task Force). Cologuard performance data in a 10,000 patient pivotal study using colonoscopy as the reference method can be accessed at the following location: www.localbacon.com/results. Additional description of the Cologuard test process, warnings and precautions can be found at www.cologuard.com. Stool specimen (specimen) 03/04/2023 11:20 PM EST 03/06/2023 5:06 PM EST us Miranda Maravilla DO LAB MOLECULAR DIAGNOSTICS OR DERABLES Final Result [employer] (CLIA #:[id number]) [place] [address], * HEPATITIS C AB W/REFL TO HCV RNA, QN, PCR (10/24/2019 9:16 AM EDT) HEPATITIS C ANTIBODY NON-REACT QUIANA NON-REACT QUIANA [facility] INDEX 0.02 <1.00 [facility] Comment: ?? HCV antibody was non-reactive. There is no laboratory ?? evidence of HCV infection. ?? In most cases, no further action is required. However, if recent HCV exposure is suspected, a test for HCV RNA (test code 32250) is suggested. ?? For additional information please refer to http://[employer]/faq/OUZ14h0 (This link is being provided for informational/ educational purposes only.) ?? HEPATITIS C ANTIBODY NON-REACT QUIANA NON-REACT QUIANA [facility] INDEX 0.02 <1.00 [facility] Comment: ?? HCV antibody was non-reactive. There is no laboratory ?? evidence of HCV infection. ?? In most cases, no further action is required. However, if recent HCV exposure is suspected, a test for HCV RNA (test code 93696) is suggested. ?? For additional information please refer to http://[employer]/faq/IAR60q2 (This link is being provided for informational/ educational purposes only.) ?? HEPATITIS C ANTIBODY NON-REACT QUIANA NON-REACT QUIANA [facility] INDEX 0.02 <1.00 [facility] Comment: ?? HCV antibody was non-reactive. There is no laboratory ?? evidence of HCV infection. ?? In most cases, no further action is required. However, if recent HCV exposure is suspected, a test for HCV RNA (test code 38077) is suggested. ?? For additional information please refer to http://[employer]/faq/XCH14a8 (This link is being provided for informational/ educational purposes only.) ?? 10/24/2019 9:16 AM EDT Miranda Maravilla DO HISTORICAL/NON ORDERABLE LAB S Final Result [facility] [address] [place] [phone], * HIV 1/2 ANTIGEN/ANTIBODY,FOURTH GENERATION W/RFL (10/24/2019 [...] ? For additional information please refer to http://[employer]zz.Zooomr/faq/RCR330 (This link is being provided for informational/ educational purposes only.) ? The performance of this assay has not been clinically validated in patients less than 2 years old. ?? HIV-1/2 ANTIGEN AND ANTIBODIES, 4TH GENERATION W/ REFLEX NON-REACT QUIANA NON-REACT QUIANA [facility] Comment: HIV-1 antigen and HIV-1/HIV-2 [...] ? For additional information please refer to http://Houzz.Zooomr/faq/ZBV124 (This link is being provided for informational/ educational purposes only.) ? The performance of this assay has not been clinically validated in patients less than 2 years old. ?? HIV-1/2 ANTIGEN AND ANTIBODIES, 4TH GENERATION W/ REFLEX NON-REACT QUIANA NON-REACT QUIANA [facility] Comment: HIV-1 antigen and HIV-1/HIV-2 [...] ? For additional information please refer to http://education.Zooomr/faq/TQF764 (This link is being provided for informational/ educational purposes only.) ? The performance of this assay has not been clinically validated in patients less than 2 years old. ?? 10/24/2019 9:16 AM EDT us Miranda Maravilla DO LAB BLOOD ORDERABLES Final R esult [facility] [address] from Last 3 Months or Most Recently Relevant to Health Maintenance Insurance [facility] STANDARD MEDICARE Advance Directives Documents on File Type Date Recorded Patient Talent Sourcer Expl anation Advance Directives and Livin g Will 06/13/2023 3:52 PM HCP Form Care Teams Commercial Reporter Relationship Specialty Start Date End Date Miranda Maravilla DO [address] [place] [address] PCP - General Family Medicine 09/26/19
--- OUTSIDE RECORDS SUMMARY | 2024-06-06 10:57 | XMS_ITS | Encounter Summary ---
Author Organization [employer] Address [address] [facility] 7t [place] [address] Care Team Providers Care Oil Heat Technician Name Role Phone Miranda Maravilla Primary Care Provider + [phone] Encounter Details Date Type Department Care Team (Late st Contact Info) Description 04/25/2024 Orders Only [facility] [address] [place], [place] [phone] Provider, MD Jo Ann Social History Tobacco [...] as of this encounter Plan of Treatment Upcoming Encounters Date Type Department Care Team (Late st Contact Info) Description 07/30/2024 9:30 AM EDT Office Visit [facility] MEDICINE [address] [place] [address] Miranda Maravilla DO [address] [place] [address] documented as of this encounter Procedures Procedure [...] documented as of this encounter Care Teams Oil Heat Technician Relationship Specialty Start Date End Date Miranda Maravilla DO [address] [place] [address] PCP - General Family Medicine 09/26/19 documented as of this encounter
--- OUTSIDE RECORDS SUMMARY | 2024-06-06 10:57 | XMS_ITS | Encounter Summary ---
Author Organization [employer] Address [address] [facility] [address] [place] [address] Care Team Providers Care Hand Plug Shaper Name Role Phone Miranda Maravilla DO Primary Care Provider + [phone] Reason for Visit * Reason Comments Med Refill Encounter Details Date Type Department Care Team ([facility] Contact Info) Description 07/26/2022 Refill [facility] MEDICINE [address] [place] [address] [phone] Miranda Maravilla DO [address] [place], [place] [phone] Social History Tobacco Use Types Packs/Day Years [...] Upcoming Encounters Date Type Department Care Team ([facility] Contact Info) Description 07/30/2024 9:30 AM EDT Office Visit [facility] MEDICINE [address] [place] [phone] Miranda Maravilla DO [address] [place] [address] documented as of this encounter Visit Diagnoses Not on filedocumented in this encounter Additional Health Concerns Assessment Noted Time PHQ-9 Depression Total Score: 0 05/09/19 23 9:16 AM EST documented as of this encounter Care Teams Hand Plug Shaper Relationship Specialty Start Date End Date Miranda Maravilla DO [address] [place] [address] PCP - General Family Medicine 09/26/19 documented as of this encounter
--- OUTSIDE RECORDS SUMMARY | 2024-06-06 10:57 | XMS_ITS | Encounter Summary ---
Author Organization [employer] Address [address] [facility] [address] [place] [address] Care Team Providers Care Superintendent Construction Name Role Phone Miranda Maravilla DO Primary Care Provider + [phone] Reason for Visit * Reason Comments Med Refill Encounter Details Date Type Department Care Team ([facility] Contact Info) Description 05/18/2022 Refill [facility] MEDICINE [address] [place] [address] [phone] Miranda Maravilla DO [address] [place], [place] [phone] Social History Tobacco Use Types Packs/Day Years [...] Upcoming Encounters Date Type Department Care Team ([facility] Contact Info) Description 07/30/2024 9:30 AM EDT Office Visit [facility] MEDICINE [address] [place] [phone] Miranda Maravilla DO [address] [place] [address] documented as of this encounter Visit Diagnoses Not on filedocumented in this encounter Additional Health Concerns Assessment Noted Time PHQ-9 Depression Total Score: 0 05/09/19 23 9:16 AM EST documented as of this encounter Care Teams Superintendent Construction Relationship Specialty Start Date End Date Miranda Maravilla DO [address] [place] [address] PCP - General Family Medicine 09/26/19 documented as of this encounter
--- OUTSIDE RECORDS SUMMARY | 2024-06-06 10:57 | XMS_ITS | Encounter Summary ---
Author Organization [employer] Address 75 [facility] 7t [place] [address] Care Team Providers Care Price Changer Name Role Phone Miranda Maravilla DO Primary Care Provider + [phone] Encounter Details Date Type Department Care Team (Latest Contact Info) Description 05/28/2024 Travel Social History Tobacco Use Types Packs/Day [...] Description 07/30/2024 9:30 AM EDT Office Visit [facility] MEDICINE [address] [place] [address] Miranda Maravilla DO [address] [place] [address] documented as of this encounter Visit Diagnoses Not on filedocumented in this encounter Additional Health Concerns Assessment Noted Time PHQ-9 Depression Total Score: 7 08/20/19 24 10:35 AM EDT documented as of this encounter Care Teams Price Changer Relationship Specialty Start Date End Date Miranda Maravilla DO [address] [place] [address] PCP - General Family Medicine 09/26/19 documented as of this encounter
--- OUTSIDE RECORDS SUMMARY | 2024-06-06 10:57 | XMS_ITS | Encounter Summary ---
Author Organization [employer] Address 75 [facility] [address] [place] [address] Care Team Providers Care Telecom Coordinator Name Role Phone Miranda Maravilla DO Primary Care Provider [phone] Encounter Details Date Type Department Care Team ([facility] Contact Info) Description 04/05/2022 Telephone [facility] MEDICINE [address] [place] [phone] Miranda Maravilla DO [address] [place], [place] [phone] Social History Tobacco Use Types Packs/Day Years [...] Upcoming Encounters Date Type Department Care Team ([facility] Contact Info) Description 07/30/2024 9:30 AM EDT Office Visit [facility] MEDICINE [address] [place] [phone] Miranda Maravilla DO [address] [place] [address] documented as of this encounter Visit Diagnoses Not on filedocumented in this encounter Additional Health Concerns Assessment Noted Time PHQ-9 Depression Total Score: 0 03/28/20 22 10:45 AM EST documented as of this encounter Care Teams Telecom Coordinator Relationship Specialty Start Date End Date Miranda Maravilla DO [address] [place] [address] PCP - General Family Medicine 09/26/19 documented as of this encounter
--- OUTSIDE RECORDS SUMMARY | 2024-06-06 10:57 | XMS_ITS | Encounter Summary ---
Author Organization [employer] Address 75 [facility] [address] [place] [address] Care Team Providers Care Syrup Mixer Name Role Phone Miranda Maravilla DO Primary Care Provider + [phone] Reason for Visit * Reason Comments Med Refill Encounter Details Date Type Department Care Team ([facility] st Contact Info) Description 06/01/2024 Refill [facility] MEDICINE [address] [place] [address] Miranda Maravilla DO [address] [place], [place] [phone] Social History Tobacco Use Types Packs/Day Years [...] Description 07/30/2024 9:30 AM EDT Office Visit [facility] MEDICINE [address] [place] [address] Miranda Maravilla DO [address] [place] [address] documented as of this encounter Visit Diagnoses Not on filedocumented in this encounter Additional Health Concerns Assessment Noted Time PHQ-9 Depression Total Score: 7 08/20/19 24 10:35 AM EDT documented as of this encounter Care Teams Syrup Mixer Relationship Specialty Start Date End Date Miranda Maravilla DO [address] [place] [address] PCP - General Family Medicine 09/26/19 documented as of this encounter
--- OUTSIDE RECORDS SUMMARY | 2024-06-06 10:57 | XMS_ITS | Encounter Summary ---
Author Organization [employer] Address 75 [facility] 7t [place] [address] Care Team Providers Care Life Skills Trainer Name Role Phone Miranda Maravilla DO Primary Care Provider + [phone] Reason for Visit * Reason Comments Med Refill Encounter Details Date Type Department Care Team ([facility] st Contact Info) Description 06/11/2023 Refill [facility] MEDICINE [address] [place] [address] Miranda Maravilla DO [address] [place], [place] [phone] Pain Social History Tobacco Use Types Packs/Day [...] the past 12 months, has t he eShares, gas, oil or water company threatened to [...] Description 07/30/2024 9:30 AM EDT Office Visit [facility] MEDICINE [address] [place] [address] Miranda Maravilla DO [address] [place] [address] documented as of this encounter Visit Diagnoses Diagnosis Pain Generalized pain documented in this encounter Additional Health Concerns Assessment Noted Time PHQ-9 Depression Total Score: 0 05/09/19 23 9:16 AM EST documented as of this encounter Care Teams Life Skills Trainer Relationship Specialty Start Date End Date Miranda Maravilla DO [address] [place] [address] PCP - General Family Medicine 09/26/19 documented as of this encounter
--- OUTSIDE RECORDS SUMMARY | 2024-06-06 10:57 | XMS_ITS | Encounter Summary ---
Author Organization [employer] Address 75 [facility] [address] [place] [address] Care Team Providers Care Rn Neurology Name Role Phone Miranda Maravilla DO Primary Care Provider + [phone] Reason for Visit * Reason Comments Med Refill Encounter Details Date Type Department Care Team ([facility] st Contact Info) Description 05/17/2024 Refill [facility] MEDICINE [address] [place] [address] Miranda Maravilla DO [address] [place], [place] [phone] Social History Tobacco Use Types Packs/Day Years [...] Description 07/30/2024 9:30 AM EDT Office Visit [facility] MEDICINE [address] [place] [address] Miranda Maravilla DO [address] [place] [address] documented as of this encounter Visit Diagnoses Not on filedocumented in this encounter Additional Health Concerns Assessment Noted Time PHQ-9 Depression Total Score: 7 08/20/19 24 10:35 AM EDT documented as of this encounter Care Teams Rn Neurology Relationship Specialty Start Date End Date Miranda Maravilla DO [address] [place] [address] PCP - General Family Medicine 09/26/19 documented as of this encounter
--- OUTSIDE RECORDS SUMMARY | 2024-06-06 10:57 | XMS_ITS | Encounter Summary ---
Author Organization [employer] Address [address] [facility] 7[address] [place] [address] Care Team Providers Care Reduction Furnace Operator Name Role Phone Miranda Maravilla DO Primary Care Provider + [phone] Reason for Visit * Reason Comments Med Refill Encounter Details Date Type Department Care Team ([facility] Contact Info) Description 07/22/2022 Refill [facility] MEDICINE [address] [place] [address] [phone] Miranda Maravilla DO [address] [place], [place] [phone] Social History Tobacco Use Types Packs/Day Years [...] Upcoming Encounters Date Type Department Care Team ([facility] Contact Info) Description 07/30/2024 9:30 AM EDT Office Visit [facility] MEDICINE [address] [place] [phone] Miranda Maravilla DO [address] [place] [address] documented as of this encounter Visit Diagnoses Not on filedocumented in this encounter Additional Health Concerns Assessment Noted Time PHQ-9 Depression Total Score: 0 05/09/19 23 9:16 AM EST documented as of this encounter Care Teams Reduction Furnace Operator Relationship Specialty Start Date End Date Miranda Maravilla DO [address] [place] [address] PCP - General Family Medicine 09/26/19 documented as of this encounter
== END 2024-06-06 09:56 | disposition home or self-care (01) ==
LOC: HO.MAMMO 09:55
PROVIDERS: PCP Family Medicine; Visit Provider Internal Medicine Medical Oncology
DX: Z13.820 Encounter for screening for osteoporosis (principal); M85.88 Other specified disorders of bone density and structure, other site
CPT/HCPCS: 77080

== ENCOUNTER → 2024-06-06 10:30 | Outpatient (BNV) | payer MEDICARE, MEDICAID, SELFPAY | PROVIDERS: PCP Family Medicine; Visit Provider Radiology Diagnostic Radiology | DX: E28.39 Other primary ovarian failure (principal) | CPT/HCPCS: 77080 ==

== ENCOUNTER 2024-06-13 07:40 | Day surgery (SDC) | payer MEDICARE, MEDICAID, SELFPAY ==
[2024-06-04 09:57] VITALS: BP 114/68; PULSE 109; RESP 16; O2SAT 91; BMI 41.1
--- NOTE | 2024-06-04 10:22 | P.CONAN_ITS ---
Documented by User: Nancy Taylor NP 06/12/24 10:06 HPI - Anesthesia Eval Consult details Narrative: 49yo F for Cholecystectomy Laparoscopic, possible open, marguerite-cath removal, 06/13/24 s/p breast lumptectomy 11/2023 with GA-LMA 4 Per last SSS encounter: Pulmo optimized: At this time patient is at low risk for pulmonary preoperative complications for the proposed breast cancer removal under general anesthesia. Patient does have underlying significant obstructive sleep apnea with supplemental oxygen dependency, thus extubation to BiPAP may be required. Supplemental O2 prn Follows [facility] [place] cardiology. Stable at 10/2023. Family notes increased exercise (walking) with intentional weight loss. Intellectual disability-12/07/23 -unable to obtain urine or blood sample for test. Patient uncooperative and combative 06/04/24: O2 sat up to 96% on RA at PAT O2 @ 2L QHS, awaiting new CPAP. PMFSH Active Problems Active Problems: All Active Problems Encounter for removal of tunneled central venous catheter (CVC) with port (Acute) Recurrent biliary colic (Acute) Biliary colic (Acute) Status post left breast lumpectomy (Acute) Postop check (Acute) Pre-op examination (Acute) Primary malignant neoplasm of left breast with stage 3 aston metastasis per [place] [employer] on Cancer 7th edition (N3) (Acute) Elevated brain natriuretic peptide (BNP) level (Acute) Localized swelling of right lower extremity (Acute) Supplemental oxygen dependent (Acute) Dyspnea on exertion (Acute) Pulmonary hypertension (Acute) Morbid obesity (Acute) GEORGE (obstructive sleep apnea) (Acute) Oxygen desaturation during sleep (Acute) Asthma (Acute) Past Medical History Medical History Menopause Breast mass, left Hospital discharge follow-up Right leg swelling Pulmonary hypertension Acute on chronic respiratory failure with hypoxia and hypercapnia Asthma with exacerbation Pneumonia Status post repair of fracture of orbit COVID Cough Chest pain Sleep apnea Intellectual disability Morbid obesity Intellectual disability Colon cancer screening GEORGE (obstructive sleep apnea) Oxygen desaturation during sleep Asthma Family History Family History Mother Diabetes Hypertension Father Hypertension Maternal Uncle Throat cancer Family history of problems with anesthesia: No Surgical History Surgical History History of lumpectomy of left breast (12/07/23) Encounter for insertion of tunneled central venous catheter (CVC) with port Cancer of left breast, stage 3 Status post spinal surgery (~1994) History of open reduction and internal fixation (ORIF) procedure History of esophagogastroduodenoscopy (EGD) History of Problems with Anesthesia: No Social History Social History Household Members Other:: mother Housing: Apartment Are you a primary critical care cns to a significant other at home: No Do you presently have visiting nurse or other home services: Yes (brother [employer]IST) Alcohol intake: never Comment: counts correct Patient Tobacco Use Status: Never used Tobacco e-Cigarette/Vaping Use: Never Used Use of substances other than those prescribed or required for medical reasons: No Are you DNR?: No Advance Directives: Yes Advance Directives Information Provided: No Advance Directives on File: Yes Advance Directives Date on File: 08/14/18 Recently lost weight without trying: No FDLMP: 1 year since chemo Poor oral hygiene: No service: No Current occupational status: disabled Meds Allergies Allergy/AdvReac Type Severity Reaction Status Date / Time No Known Allergies Allergy Unknown Verified 06/02/24 16:04 [No Known Allergies*] Home Medications ?Medication ?Instructions ?Recorded ?Confirmed ?Last Taken ?Type econazole nitrate 1 % topical cream 1 appl topical BID 10/27/21 06/04/24 04/05/22 History white petrolatum 42 % topical 1 ea topical BID PRN Dry Skin 10/27/21 06/04/24 Unknown History ointment cetirizine 10 mg tablet 10 mg PO DAILY 01/18/22 06/04/24 04/05/22 History fluoxetine 20 mg capsule 20 mg PO DAILY 01/18/22 06/04/24 04/05/22 History naproxen 500 mg tablet 500 mg PO BID PRN pain 01/18/22 06/04/24 Unknown History albuterol sulfate 90 mcg/actuation 2 puff inhalation Q4H PRN 04/05/22 06/04/24 Unknown History aerosol inhaler (Ventolin HFA) shortness of breath or wheezing docusate sodium 100 mg capsule 1 cap PO BID PRN Constipation 04/05/22 06/04/24 Unknown History fluticasone propionate 50 2 spray intranasal DAILY 04/05/22 06/04/24 04/05/22 History mcg/actuation nasal spray,suspension lamotrigine 100 mg tablet 100 mg PO DAILY 04/05/22 06/04/24 04/05/22 History sennosides 8.6 mg tablet (senna) 2 tab PO BEDTIME PRN constipation 04/05/22 06/04/24 Unknown History arformoterol 15 mcg/2 mL solution 2 ml inhalation BID 07/03/22 06/04/24 Unknown History for nebulization (Brovana) aripiprazole 5 mg tablet 5 mg PO DAILY 07/03/22 06/04/24 Unknown History baclofen 10 mg tablet 10 mg PO DAILY 08/14/23 06/04/24 Unknown History calcium carbonate (Calcium Antacid) 400 mg PO QID PRN heartburn 08/14/2306/04 Unknown History trazodone 50 mg tablet 100 mg PO BEDTIME PRN Insomnia 08/14/23 06/04/24 Unknown History fluconazole 150 mg tablet 150 mg PO QWEEK 10/02/23 06/04/24 Unknown History diclofenac sodium 1 % topical gel 1 ea topical DAILY 10/23/23 06/04/24 Unknown History acetaminophen 650 mg 650 mg PO Q6H PRN mild pain 11/29/23 06/04/24 Unknown History tablet,extended release fluticasone furoate 200 1 ea inhalation DAILY 11/29/23 06/04/24 Unknown History mcg-vilanterol 25 mcg/dose inhalation powder (Breo Ellipta) hydrocortisone 2.5 % topical cream 2.5 appl topical DAILY 11/29/23 06/04/24 Unknown History terbinafine HCl 250 mg tablet 250 mg PO DAILY 11/29/23 06/04/24 Unknown History Exam Height,Weight and Vital Signs: Height 5 ft 2 in Weight 102.058 kg Last Vital Signs Pulse 109 H 06/04/24 09:57 Resp 16 06/04/24 09:57 BP 114/68 06/04/24 09:57 Pulse Ox 91 L 06/04/24 09:57 O2 Del Method Room Air 06/04/24 09:57 Pertinent Lab Results Pertinent Lab Results: Laboratory Tests 06/02/24 15:55 WBC 5.3 Hgb 12.7 Hct 39.4 Plt Count 149 L Sodium 141 Potassium 4.3 Chloride 106 Carbon Dioxide 30 H BUN 13 Creatinine 0.57 Narrative Narrative: EKG 10/2023 sinus tachycardia, rate 104, no acute ST or T-wave abnormalities, QTC 436 milliseconds ECHO 05/2023 Conclusions: - The left ventricular systolic function is normal. The visually estimated ejection fraction is between 65-70%. - No obvious valvular pathology seen on this study.(valves not well visualized). Airway Mallampati Class: IV TM Dist: >3cm Loose/Missing/Broken Teeth: Yes (Many missing teeth) Heart: RRR - tachy Lungs: CTAB Assessment and Plan Assessment Anesthesia Assessment: Anesthesia Plan Discussed and PAT Visit Final Anesthetic Review Family History of Problems with Anesthesia: No History of Problems with Anesthesia: No Documented by User: Radha Yu MD 06/13/24 11:18 [facility] Past Medical History Medical History Menopause Breast mass, left Hospital discharge follow-up Right leg swelling Pulmonary hypertension Acute on chronic respiratory failure with hypoxia and hypercapnia Asthma with exacerbation Pneumonia Status post repair of fracture of orbit COVID Cough Chest pain Sleep apnea Intellectual disability Morbid obesity Intellectual disability Colon cancer screening GEORGE (obstructive sleep apnea) Oxygen desaturation during sleep Asthma Family History Family History Mother Diabetes Hypertension Father Hypertension Maternal Uncle Throat cancer Family history of problems with anesthesia: No Surgical History Surgical History History of lumpectomy of left breast (12/07/23) Encounter for insertion of tunneled central venous catheter (CVC) with port Cancer of left breast, stage 3 Status post spinal surgery (~1994) History of open reduction and internal fixation (ORIF) procedure History of esophagogastroduodenoscopy (EGD) History of Problems with Anesthesia: No Social History Social History Household Members Other:: mother Housing: Apartment Are you a primary critical care cns to a significant other at home: No Do you presently have visiting nurse or other home services: Yes (brother [employer]) Alcohol intake: never Comment: counts correct Patient Tobacco Use Status: Never used Tobacco e-Cigarette/Vaping Use: Never Used Use of substances other than those prescribed or required for medical reasons: No Are you DNR?: No Advance Directives: Yes Advance Directives Information Provided: No Advance Directives on File: Yes Advance Directives Date on File: 08/14/18 Recently lost weight without trying: No FDLMP: 1 year since chemo Poor oral hygiene: No service: No Current occupational status: disabled Meds Allergies Allergy/AdvReac Type Severity Reaction Status Date / Time No Known Allergies Allergy Unknown Verified 06/02/24 16:04 [No Known Allergies*] Home Medications ?Medication ?Instructions ?Recorded ?Confirmed ?Last Taken ?Type econazole nitrate 1 % topical cream 1 appl topical BID 10/27/21 06/04/24 04/05/22 History white petrolatum 42 % topical 1 ea topical BID PRN Dry Skin 10/27/21 06/04/24 Unknown History ointment cetirizine 10 mg tablet 10 mg PO DAILY 01/18/22 06/04/24 04/05/22 History fluoxetine 20 mg capsule 20 mg PO DAILY 01/18/22 06/04/24 04/05/22 History naproxen 500 mg tablet 500 mg PO BID PRN pain 01/18/22 06/04/24 Unknown History albuterol sulfate 90 mcg/actuation 2 puff inhalation Q4H PRN 04/05/22 06/04/24 Unknown History aerosol inhaler (Ventolin HFA) shortness of breath or wheezing docusate sodium 100 mg capsule 1 cap PO BID PRN Constipation 04/05/22 06/04/24 Unknown History fluticasone propionate 50 2 spray intranasal DAILY 04/05/22 06/04/24 04/05/22 History mcg/actuation nasal spray,suspension lamotrigine 100 mg tablet 100 mg PO DAILY 04/05/22 06/04/24 04/05/22 History sennosides 8.6 mg tablet (senna) 2 tab PO BEDTIME PRN constipation 04/05/22 06/04/24 Unknown History arformoterol 15 mcg/2 mL solution 2 ml inhalation BID 07/03/22 06/04/24 Unknown History for nebulization (Brovana) aripiprazole 5 mg tablet 5 mg PO DAILY 07/03/22 06/04/24 Unknown History baclofen 10 mg tablet 10 mg PO DAILY 08/14/23 06/04/24 Unknown History calcium carbonate (Calcium Antacid) 400 mg PO QID PRN heartburn 08/14/23 06/04/24 Unknown History trazodone 50 mg tablet 100 mg PO BEDTIME PRN Insomnia 08/14/23 06/04/24 Unknown History fluconazole 150 mg tablet 150 mg PO QWEEK 10/02/23 06/04/24 Unknown History diclofenac sodium 1 % topical gel 1 ea topical DAILY 10/23/23 06/04/24 Unknown History acetaminophen 650 mg 650 mg PO Q6H PRN mild pain 11/29/23 06/04/24 Unknown History tablet,extended release fluticasone furoate 200 1 ea inhalation DAILY 11/29/23 06/04/24 Unknown History mcg-vilanterol 25 mcg/dose inhalation powder (Breo Ellipta) hydrocortisone 2.5 % topical cream 2.5 appl topical DAILY 11/29/23 06/04/24 Unknown History terbinafine HCl 250 mg tablet 250 mg PO DAILY 11/29/23 06/04/24 Unknown History Exam Height,Weight and Vital Signs: Height 5 ft 2 in Weight 102.058 kg Last Vital Signs Pulse 109 H 06/04/24 09:57 Resp 16 06/04/24 09:57 BP 114/68 06/04/24 09:57 Pulse Ox 91 L 06/04/24 09:57 O2 Del Method Room Air 06/04/24 09:57 Vital Signs Temp Pulse Resp BP Pulse Ox O2 Del Method 06/13/24 08:29 98.5 F 67 20 97/54 L 94 Room Air Pertinent Lab Results Pertinent Lab Results: Laboratory Tests 06/02/24 15:55 WBC 5.3 Hgb 12.7 Hct 39.4 Plt Count 149 L Sodium 141 Potassium 4.3 Chloride 106 Carbon Dioxide 30 H BUN 13 Creatinine 0.57 Sample sent for beta hcg hemolysed. Will take over an hour once sample received to get results. Patient with intellectual disability. Difficult IV access. Causes patient distress. Family states no chance of patient being . Will proceed with surgery without testing Airway Mallampati Class: IV (Very small mouth opening ) TM Dist: >3cm Loose/Missing/Broken Teeth: Yes (Missing several teeth) Heart: RRR Lungs: CTAB Assessment and Plan Assessment Anesthesia Assessment: Anesthesia Plan Discussed, PAT Visit and Chart Reviewed Final Anesthetic Review Family History of Problems with Anesthesia: No History of Problems with Anesthesia: No NPO: Yes ASA Class: III Final Preanesthetic Review: No Changes in Pt Med Stat, Meds/Allgs Chart Reviewed, Consent Obtained/Reviewed and Anes Risks/Benef Reviewed Patient Risk: Intermediate Procedure Risk: Intermediate Assessment/Block/Sedation in SS: Assess/Block/Sedation-SS Anesthetic Plan Anesthetic Plan: GA Disposition: Standard PACU
--- NOTE | 2024-06-12 11:36 | MHC.SHP ---
Pre-Procedural Eval Section A - 24 Hr Update-Section A only Date of Service: 06/13/24 The patient is an INPATIENT: No Changes since office visit: No Cold of Flu in the past 2 weeks, No New Medical Problems, No Changes in Medication and No Patient answered all questions Section B - Complete if H&P > 30 days Chief Complaint: Calculus of bile duct without cholangitis or chandler Allergies: Allergies Allergy/AdvReac Type Severity Reaction Status Date / Time No Known Allergies Allergy Unknown Verified 06/02/24 16:04 [No Known Allergies*] Review of Systems Sugical H&P ROS: Negative: Constitution, Cardiovascular, Respiratory, Neurological, Psychiatric, Hem-Onc, Allergic/Immunologic, Gastrointestinal, Genitourinary, Musculoskeletal, Integumentary, Endocrine and Eyes/Ears/Nose/Throat Exam Surgical H&P Exam: Normal: HEENT, Normal: Heart, Normal: Lungs, Normal: Extremities, Normal: Abdomen, Normal: Skin and Normal: Neurological Plan I have reviewed the history and physical and performed a pertinent physical examination on my patient. No changes have occurred unless specified. Time Spent With Patient Time: Total time managing care of this patient today ____ minutes.
[2024-06-13] VITALS (18 sets, daily range): BP systolic 97–147; BP diastolic 54–93; PULSE 67–109; RESP 16–20; TEMP 36.1–36.9; O2SAT 80–97; BMI 41.4
[2024-06-13] MEDS: Lactated Ringers 1,000 ML 100 ML IVCONT ×2 (08:34→20:15)
--- NOTE | 2024-06-13 09:53 | PC.NURSE ---
CALLED LAB [facility] HEMOLYZ[facility] NEED A REDRAWN PT REFUSED FAMILY STS NO PERIOD IN ONE YEAR AND NEVER HAD SEX TIGERRED ANESTHESIA AND DR HOOKS AWARE STS NO NEED FOR LAB REDRAWN
--- NOTE | 2024-06-13 10:06 | PC.NURSE ---
NO NEED FOR REDRAWN PER ANESTHESIA AND DR HOOKS
--- NOTE | 2024-06-13 11:57 | P.OP_ITS ---
Operative Note Operative Note Date of Service: 06/13/24 Narrative: Preoperative diagnosis: [] 1. Recurrent biliary colic 2. Right chest Port-A-Cath Postop diagnosis: [] same Procedure [] 1. Laparoscopic cholecystectomy 2. Right chest Port-A-Cath removal Surgeon: [] Rehan Self Propelled Mining Machine Operator: [] Connie Type of Anesthesia: [] General Indication for surgery: [] Profoundly corpulent abdomen. Gallbladder with large gallstone and Jaswant's pouch cystic duct junction. Significant a dhesions of omentum and stomach to the gallbladder. Uneventful Port-A-Cath removal. Findings: [] Patient was brought to the operating room, placed in up table supine position, after an adequate level of general anesthesia was induced, the abdomen, which profound ecorpulent was prepped in usual sterile fashion. Using a supraumbilical curvilinear incision, as I think he which was challenging sec ondary to the patient's extensive pannus was uneventfully performed and the cavity insufflated with CO2 the 15 mm. Upper midline HI subcostal ports were placed under direct laparoscopic view and the patient believes to reverse Trendelenburg position, tilted left. Findings were as noted above. Gallbladder was grasped laparoscopic graspers and retracted superiorly and laterally. Very dense omental and gastric adhesions to the gallbladder were swept off the gallbladder and the hilum was approached. Cystic artery and cystic duct were each identified, circumferentially skeletonized, trace directly into the gallbladder, a critical view obtained. Each was clipped proximally x2, distally x1, and transected. Gallbladder , which was very intrahepatic , was then cauterized from the gallbladder fossa using Bovie. Specimen placed in an Endo- Catch bag, a retrieved through the umbilical port. Abdominal cavity was copiously irrigated, and secured hemostasis. All ports removed under direct l aparoscopic view. Wounds were closed in the following manner; umbilical wound has fascia reapproximated using interrupted 0 Vicryl suture. Skin wounds were closed using interrupted inverted dermal 4-0 Vicryl sutures followed by Steri- Strips and sterile dressings. Sponge, needle, and instrument counts reported correct. Patient tolerated this portion of procedure well. EBL minimal. Wounds were infiltrated 0.5% Marcaine at completion. Patient was then positioned for the right chest Port-A-Cath removed. The area was prepped and draped in usual sterile fashion. Using a scar from the previous port placement, this carried down through skin, subcutaneous tissue, down to port capsule were uneventful enucleation of the port in toto was removed without incident. Wound was irrigated, secured hemostasis, and closed using interrupted inverted dermal 3-0 Vicryl sutures followed by Steri-Strips and sterile dressings . The wound was also infiltrated with 0.5% Marcaine at completion. EBL minimal Sponge, needle, instrument counts reported correct. Patient tolerated the procedure well and emerged from anesthesia in stable condition.
[2024-06-13] MEDS: Ketorolac Tromethamine 30 MG/ML VIAL IVPUSH (17:41)
[2024-06-13] MEDS: Acetaminophen 325 MG TABLET 650 MG PO (17:44)
--- NOTE | 2024-06-13 19:32 | PM.EVENT ---
Event Note Date of Service: 06/13/24 Event Note: Pt to be observed bec low -o2 sat's low in RR. Pt uses home o2 base line VS's otherwise stable Time Spent With Patient Time: Total time managing care of this patient today ____ minutes.
[2024-06-13] MEDS: HYDROmorphone HCl 1 MG/ML SYRINGE 0.5 MG IVPUSH (20:15)
--- NOTE | 2024-06-13 20:21 | PHA.MEDREC ---
Addendum entered by Roberth Carias 06/13/24 20:39: reviewed Original Note: Pharmacy Consult ? Medication Reconciliation Pharmacy has completed the medication reconciliation. Spoke with patients family at bedside with video poker floorman and they were able to confirm the patients medications. They confirmed the patient is taking Tamoxifen 20mg tabs once daily for the Cancer and the family confirmed the patient last took it this morning before the surgery. They confirmed the patient has not taken any other medications since Sunday due to the surgery today.
[2024-06-14 03:53] VITALS: BP 117/73; PULSE 91; RESP 19; O2SAT 94
[2024-06-14] MEDS: Lactated Ringers 1,000 ML 100 ML IVCONT (05:51)
[2024-06-14 08:13] VITALS: BP 94/51; PULSE 100; RESP 18; TEMP 36.1; O2SAT 97
[2024-06-14] MEDS: Ketorolac Tromethamine 30 MG/ML VIAL IVPUSH (10:09)
[2024-06-14 10:53] VITALS: BP 124/70
[2024-06-14 11:19] VITALS: O2SAT 94
--- NOTE | 2024-06-14 12:42 | P.DS_ITS ---
DS: Providers Provider Date of Service: 06/14/24 Date of discharge: 06/14/24 Primary care physician: Miranda Maravilla DO Attending physician on discharge: Rayna Knight DS: Diagnosis Discharge Diagnosis (1) Biliary colic: Start date: 06/14/24 Status: Acute DS: Summary Hospital Course Hospital Course: Patient is a 49-year-old special needs lady who lives with her parents who has been having biliary colic. She underwent laparoscopic cholecystectomy and did well. She was kept overnight just for pain control and to monitor her oxygenation. Her parents say that she wears oxygen at home so she should be good to go back today. She has been able to eat and drink and she does have a little bit of pain at the umbilical site. Plan to slowly increase her diet as tolerated p.o. pain meds Status at Discharge Cognitive/behavioral status at discharge: Patient is special needs but back to her baseline Overall status at discharge: patient is progressing back to baseline Time Attestation Discharge Coordination Time (in mins): 20 Quality: Safe Use of Opioids Does Pt have an Active Cancer Diagnosis on the Problem List?: No Quality: Stroke Does the patient have a stroke diagnosis?: No Reason for No Anti-thrombotic at DC: Drug treatment not indicated Reason for No Anticoagulant at DC: Drug treatment not indicated Physical Exam Vital Signs: Vital Signs: Last Vital Signs Temp 96.9 F 06/14/24 08:13 Pulse 100 06/14/24 08:13 Resp 18 06/14/24 08:13 BP 124/70 06/14/24 10:53 Pulse Ox 94 06/14/24 11:19 O2 Del Method Nasal Cannula 06/14/24 11:19 O2 Flow Rate 3 06/14/24 08:13 Oxygen Flow Rate 3 06/14/24 11:19 BMI result Body Mass Index 41.4 Const: General: cooperative, healthy appearing and comfortable Resp: Other: On 2 L nasal cannula oxygen doing well GI: Other: Abdomen is soft nondistended obese little tender at the umbilical incision site. All dressings are clean and dry DS: Data Data Completed and Pending Completed studies during hospitalization [Text1]: Procedures Assistance with Respiratory Ventilation, Less than 24 Consecutive Hours, Continuous Positive Airway Pressure (07/16/22) Pending studies at discharge: Pending at discharge 06/13/24 10:58 Surgical [PTH] Routine Discharge Plan Discharge Patient Disposition: Home, Self-Care Referrals: Miranda Maravilla DO [Primary Care Provider] - 1 Week Jarrett Van MD [Physician] - 1 Week Discharge Medications: New hydrocodone-acetaminophen 5-325 mg tablet 1 tab PO Q4-6H PRN (Reason: pain) Qty: 30 0RF Rx Instructions: Partial Fill upon patient request. No Action ipratropium-albuterol 0.5 mg-3 mg(2.5 mg base)/3 mL solution for nebulization 3 ml inhalation TID Qty: 270 6RF cholecalciferol (vitamin D3) [Vitamin D3] 125 mcg (5,000 unit) Tablet 125 mcg PO DAILY Qty: 90 3RF torsemide 20 mg tablet 20 mg PO BID Qty: 60 6RF white petrolatum 42 % ointment 1 ea topical BID PRN (Reason: Dry Skin) cetirizine 10 mg tablet 10 mg PO DAILY sennosides [senna] 8.6 mg tablet 2 tab PO BEDTIME PRN (Reason: constipation) docusate sodium 100 mg capsule 1 cap PO BID PRN (Reason: Constipation) albuterol sulfate [Ventolin HFA] 90 mcg/actuation HFA aerosol inhaler 2 puff inhalation Q4H PRN (Reason: shortness of breath or wheezing) clotrimazole 1 % cream 1 appl topical BID ketotifen fumarate [Eye Itch Relief] 0.025 % (0.035 %) drops 1 drp ophthalmic (eye) BID PRN (Reason: Itchy Eye(S)) econazole nitrate 1 % cream 1 appl topical BID PRN (Reason: fungal rash) tamoxifen 20 mg Tablet 20 mg PO DAILY Qty: 90 3RF fluticasone furoate-vilanterol [Breo Ellipta] 200-25 mcg/dose blister with device 1 ea INHALATION DAILY acetaminophen 650 mg tablet extended release 650 mg PO Q6H PRN (Reason: mild pain) baclofen 10 mg tablet 5 - 10 mg PO DAILY PRN (Reason: Muscle Spasm) calcium carbonate [Calcium Antacid] 200 mg calcium (500 mg) tablet,chewable 400 mg PO QID PRN (Reason: heartburn) trazodone 50 mg tablet 100 mg PO BEDTIME PRN (Reason: Insomnia) Discharge Orders: Discharge Order (Routine); Ordered 03/07/25 Ordered By: Jarrett Van Diet: Advance to usual diet Activity on Discharge: No heavy lifting Activity Restrictions/Additional Instructions: Ice to wound 20 minutes several times today and tomorrow. May shower in 2 days. Remove outside dressing only. Leave Steri-Strips intact. No strenuous activities Print Language: Lithuanian
--- NOTE | 2024-06-14 13:16 | HO.POSTANES ---
Post Anesthesia Evaluation Post Anesthesia Evaluation Date of Service: 07/13/01 Vital Signs: Vital Signs Temp Pulse Resp BP Pulse Ox O2 Del Method O2 Flow Rate 06/14/24 11:19 94 Nasal Cannula 06/14/24 10:53 124/70 06/14/24 08:13 96.9 F 100 18 94/51 L 97 Nasal Cannula 3 06/14/24 03:53 91 19 117/73 94 Nasal Cannula 2 Anesthesia: General Endotracheal-GETA Mental Status: Awake Pain Control: Satisfactory Nausea/Vomiting: None Hydration: Adequate Anesthesia-Related Issues: No Anes. Related Issues
== END 2024-06-14 14:49 | disposition home or self-care (01) ==
LOC: HO.SSS 09:56 → HO.S3 18:11
PROVIDERS: PCP Family Medicine; Visit Provider Surgery
PROC: 0FT44ZZ Resection of Gallbladder, Percutaneous Endoscopic Approach (ICD-10-PCS; CPT 47562; principal; 2024-06-13 10:20)
DX: K80.10 Calculus of gallbladder with chronic cholecystitis without obstruction (principal); K82.8 Other specified diseases of gallbladder; K66.0 Peritoneal adhesions (postprocedural) (postinfection); Q44.1 Other congenital malformations of gallbladder; D36.0 Benign neoplasm of lymph nodes; E65 Localized adiposity; Z45.2 Encounter for adjustment and management of vascular access device; C50.912 Malignant neoplasm of unspecified site of left female breast; Z79.810 Long term (current) use of selective estrogen receptor modulators (SERMs); Z92.21 Personal history of antineoplastic chemotherapy; G47.33 Obstructive sleep apnea (adult) (pediatric); I27.20 Pulmonary hypertension, unspecified; J96.22 Acute and chronic respiratory failure with hypercapnia; J96.21 Acute and chronic respiratory failure with hypoxia; Z99.81 Dependence on supplemental oxygen; Z98.890 Other specified postprocedural states
CPT/HCPCS: 47562; 36590; 36415; 84702; 88304; J0131; J0690; J1100; J1171; J1630; J1885; J2250; J2405; J2704; J2795; J3010; J7120

== ENCOUNTER → 2024-06-13 07:40 | Outpatient (BNV) | payer MEDICARE, MEDICAID, SELFPAY | PROVIDERS: PCP Family Medicine; Visit Provider Surgery | DX: K80.50 Calculus of bile duct without cholangitis or cholecystitis without obstruction (principal) | CPT/HCPCS: 36590; 47562; 99024; 99212; 99499 ==

== ENCOUNTER 2024-06-16 10:37 | Outpatient (AMB) | payer MEDICARE, MEDICAID, SELFPAY ==
--- NOTE | 2024-06-16 10:15 | A.OFFVIS_ITS ---
Intake Visit Reasons: p/o 1. lap chandler 2. port placement Intake Note: Patient walked into office for wound check. S/p 1. Laparoscopic cholecystectomy 2. Right chest Port-A-Cath removal on 06-14-2023. Patient here with mother who is wanting reassurance sites healing well. Decommissioning Well Site Manager Required: No Accompanied by: Self / Same As Patient Allergies No Known Allergies [No Known Allergies*] Allergy (Unknown, Verified 06/16/24 10: 17) HPI Comments Details: Patient presents with the mother for follow-up. Miscommunication there were to be seen next week for follow up but nonetheless we evaluated the patient. Mother states she is doing well. She is tolerating a diet. Having regular bowel habits. She has minimal incisional discomfort. [facility] Medical History Menopause Breast mass, left Hospital discharge follow-up Right leg swelling Pulmonary hypertension Acute on chronic respiratory failure with hypoxia and hypercapnia Asthma with exacerbation Pneumonia Status post repair of fracture of orbit COVID Cough Chest pain Sleep apnea Intellectual disability Morbid obesity Intellectual disability Colon cancer screening GEORGE (obstructive sleep apnea) Oxygen desaturation during sleep Asthma Surgical History History of lumpectomy of left breast (12/07/23) Encounter for insertion of tunneled central venous catheter (CVC) with port Cancer of left breast, stage 3 Status post spinal surgery (~1994) History of open reduction and internal fixation (ORIF) procedure History of esophagogastroduodenoscopy (EGD) Family History Mother Diabetes Hypertension Father Hypertension Maternal Uncle Throat cancer Social History Household Members: Spouse and Children Household Members Other:: mother Housing: House Are you a primary client care coordinator to a significant other at home: No Do you presently have visiting nurse or other home services: Yes ([employer]) Alcohol intake: never Comment: counts correct Patient Tobacco Use Status: Never used Tobacco e-Cigarette/Vaping Use: Never Used Advance Directives Date on File: 08/14/18 service: No Current occupational status: disabled Physical Exam Eyes Other: Anicteric Chest Other: Port site incision clean dry and intact GI Other: Abdomen is soft. Incisions all clean dry and intact. Assessment & Plan Assessment & Plan (1) Status post laparoscopic cholecystectomy: Code(s): Z90.49 - Acquired absence of other specified parts of digestive tract Category: Surgical (2) History of removal of tunneled central venous catheter (CVC) with port: Code(s): Z98.890 - Other specified postprocedural states Category: Surgical Plan Patient and her mother have been given local instructions and she will see me in roughly 2 weeks' time for follow-up or p.r.n.. All questions answered. 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 Coding Level of Care Code Global (52061) Diagnoses Status post laparoscopic cholecystectomy Z90.49 History of removal of tunneled central venous catheter (CVC) with port Z98.890
--- OUTSIDE RECORDS SUMMARY | 2024-06-16 11:58 | XMS_ITS | Encounter Summary ---
Author Organization [employer] Address [address] [facility] [address] [place] [address] Care Team Providers Care Knife Setter Grinder Machine Name Role Phone Miranda Maravilla DO Primary Care Provider + [phone] Reason for Visit * Reason Comments Med Refill Encounter Details Date Type Department Care Team ([facility] Contact Info) Description 07/26/2022 Refill [facility] [address] [place] [address] [phone] Miranda Maravilla DO [address] [place], [place] [phone] Social History Tobacco Use Types Packs/Day Years [...] Upcoming Encounters Date Type Department Care Team ([facility] Contact Info) Description 07/30/2024 9:30 AM EDT Office Visit [facility] [address] [place] [phone] Miranda Maravilla DO [address] [place] [address] documented as of this encounter Visit Diagnoses Not on filedocumented in this encounter Additional Health Concerns Assessment Noted Time PHQ-9 Depression Total Score: 0 05/09/19 23 9:16 AM EST documented as of this encounter Care Teams Knife Setter Grinder Machine Relationship Specialty Start Date End Date Miranda Maravilla DO [address] [place] [address] PCP - General Family Medicine 09/26/19 documented as of this encounter
--- OUTSIDE RECORDS SUMMARY | 2024-06-16 11:58 | XMS_ITS | Encounter Summary ---
Author Organization [employer] Address [address] [facility] [address] [place] [address] Care Team Providers Care Tube Maker Name Role Phone Miranda Maravilla DO Primary Care Provider + [phone] Encounter Details Date Type Department Care Team [...] Description 07/30/2024 9:30 AM EDT Office Visit [facility] [address] [place] [address] Miranda Maravilla DO [address] [place] [address] documented as of this encounter Visit Diagnoses Not on filedocumented in this encounter Additional Health Concerns Assessment Noted Time PHQ-9 Depression Total Score: 7 08/20/19 24 10:35 AM EDT documented as of this encounter Care Teams Tube Maker Relationship Specialty Start Date End Date Miranda Maravilla DO [address] [place] [address] PCP - General Family Medicine 09/26/19 documented as of this encounter
--- OUTSIDE RECORDS SUMMARY | 2024-06-16 11:58 | XMS_ITS | Encounter Summary ---
Author Organization [employer] Address [address] [facility] [address] [place] [address] Care Team Providers Care Fulfillment Representative Name Role Phone Miranda Maravilla DO Primary Care Provider + [phone] Encounter Details Date Type Department Care Team (Late st Contact Info) Description 06/06/2024 Orders Only [facility] External Provider, [facility] Social History Tobacco Use Types Packs/Day Years [...] Description 07/30/2024 9:30 AM EDT Office Visit [facility] [address] [facility] [place] [address] Miranda Maravilla, DO [address] [facility] [place] [address] documented as of this encounter Procedures Procedure Name Priority Date/Time Associated Diagnosis Comments BD DEXA AXIAL Routine 06/06/2024 10:30 AM EST documented in this encounter Results * BD DEXA Axial (06/06/2024 10:30 AM EST) Anatomical Region Laterality Modality Body Radiographic Maribel ging 06/06/2024 10:3 0 AM EST Narrative 06/09/2024 7:04 AM EST ? [facility] [place] ? [address] ?[place] [address] ? Mammography Report ? Signed ? Patient: Brandon Lang Y ?MR#: [id number] ? : 1975 ?Acct:[id number] ? Age/Sex: 49 / F ?ADM Date: 02/28/25 ? Loc: HO.MAMMO ? Attending Dr: Christiana Romero MD ? Ordering Physician: Christiana Romero MD ?Results: ? Date of Service: 06/06/24 ?Follow Up: ? Procedure(s): XR DEXA axial skeleton ?? Accession Number(s): [id number] ? cc: Miranda Maravilla DO; Christiana Romero MD ? EXAMINATION: ??DXA BONE DENSITY AXIAL ? HISTORY: ??Estrogen deficiency ? TECHNIQUE: [employer] Dual energy absorptiometry (DEXA) ?? of the lumbar spine, total left hip, and femoral neck was performed. ? COMPARISON: ??There are no prior studies for comparison. ? FINDINGS: ? The bone mineral density of the lumbar spine is 1.053 with a T-score of ?? -1.2, and a Z-score of -2.0. ? The bone mineral density of the left total hip is 0.948 with a T-score ?? of -0.5, and a Z-score of -0.9. ? The bone mineral density of the left femoral neck is 0.823 with a ?? T-score of -1.5, and a Z-score of -1.5. ? MM/XR DEXA axial skeleton ?? IMPRESSION: ?? Based on bone mineral density, and according to World Health ?? Organization (WHO) criteria, the diagnosis is consistent with ?? osteopenia. ? All bone density values are in grams per centimeter squared (g/cm2). ?? Statistically, 68% of repeat scans fall within 1 SD (+/- 0.010 g/cm2 ?? for AP spine L1-L4) and 1 SD (+/- 0.012 g/cm2 for femur total) ?? FRAX is a trademark of the [employer]'s ?? [place] for Metabolic Bone Disease, a World Health Organization (WHO) ?? Collaborating Center. ? Electronically signed by: ??Felix Corral MD ??06/09/2024 07:01 AM EST ?? RP ? Dictated By: ?Felix Corral MD ? Signed By: ?<Electronically signed by Felix Corral MD in OV> ?06/09/24 0701 ? DD/ 1030 ? TD/TT: 06/06/24 1050 ? Sr. Logistics Analyst: ? Procedure Note Donotuseinterpreter, Image - 06/09/2024 [facility] [address] [place], [place] [address] Mammography Report Signed Patient: Brandon Lang YMR#: [id number] : 1975Acct:[id number] Age/Sex: 49 / FADM Date: 06/06/24 Loc: HO.MAMMO Attending Dr: Christiana Roemro MD Ordering Physician: Christiana Romeroesults: Date of Service: 06/06/24Follow Up: Procedure(s): XR DEXA axial skeleton Accession Number(s): [id number] cc: Miranda Maravilla DO; Christiana Romero MD EXAMINATION: DXA BONE DENSITY AXIAL HISTORY: Estrogen deficiency TECHNIQUE: [employer] Dual energy absorptiometry (DEXA) of the lumbar spine, total left hip, and femoral neck was performed. COMPARISON: There are no prior studies for comparison. FINDINGS: The bone mineral density of the lumbar spine is 1.053 with a T-score of -1.2, and a Z-score of -2.0. The bone mineral density of the left total hip is 0.948 with a T-score of -0.5, and a Z-score of -0.9. The bone mineral density of the left femoral neck is 0.823 with a T-score of -1.5, and a Z-score of -1.5. MM/XR DEXA axial skeleton IMPRESSION: Based on bone mineral density, and according to World Health Organization (WHO) criteria, the diagnosis is consistent with osteopenia. All bone density values are in grams per centimeter squared (g/cm2). Statistically, 68% of repeat scans fall within 1 SD (+/- 0.010 g/cm2 for AP spine L1-L4) and 1 SD (+/- 0.012 g/cm2 for femur total) FRAX is a trademark of the [employer]'s [place] for Metabolic Bone Disease, a World Health Organization (WHO) Collaborating Center. Electronically signed by: Felix Corral MD 06/09/2024 07:01 AM EST Dictated By: Felix Corral MD Signed By: <Electronically signed by Felix Corral MD in OV> 06/09/24 0701 DD/ 1030 TD/TT: 06/06/24 1050 Sr. Logistics Analyst: [facility] External Provider IMG DXA PROCEDURES Final Result documented in this encounter Visit Diagnoses Not on filedocumented in this encounter Additional Health Concerns Assessment Noted Time PHQ-9 Depression Total Score: 7 08/20/19 24 10:35 AM EDT documented as of this encounter Care Teams Fulfillment Representative Relationship Specialty Start Date End Date Miranda Maravilla DO [address] [place] [address] PCP - General Family Medicine 09/26/19 documented as of this encounter
--- OUTSIDE RECORDS SUMMARY | 2024-06-16 11:58 | XMS_ITS | Encounter Summary ---
Author Organization [employer] Address [address] [facility] [address] [place] [address] Care Team Providers Care Senior Sales Associate Name Role Phone Miranda Maravilla DO Primary Care Provider + [phone] Reason for Visit * Reason Comments Med Refill Encounter Details Date Type Department Care Team ([facility] st Contact Info) Description 05/17/2024 Refill [facility] [address] [place] [address] Miranda Maravilla DO [address] [place], [place] [phone] Social History Tobacco Use Types Packs/Day Years [...] Description 07/30/2024 9:30 AM EDT Office Visit [facility] [address] [place] [address] Miranda Maravilla DO [address] [place] [address] documented as of this encounter Visit Diagnoses Not on filedocumented in this encounter Additional Health Concerns Assessment Noted Time PHQ-9 Depression Total Score: 7 08/20/19 24 10:35 AM EDT documented as of this encounter Care Teams Senior Sales Associate Relationship Specialty Start Date End Date Miranda Maravilla DO [address] [place] [address] PCP - General Family Medicine 09/26/19 documented as of this encounter
--- OUTSIDE RECORDS SUMMARY | 2024-06-16 11:58 | XMS_ITS | Encounter Summary ---
Author Organization [employer] Address [address] [facility] [address] [place] [address] Care Team Providers Care Shovel Logger Name Role Phone Miranda Maravilla DO Primary Care Provider + [phone] Reason for Visit * Reason Comments Med Refill Encounter Details Date Type Department Care Team ([facility] Contact Info) Description 07/22/2022 Refill [facility] [address] [place] [address] [phone] Miranda Maravilla DO [address] [place], [place] [phone] Social History Tobacco Use Types Packs/Day Years [...] Upcoming Encounters Date Type Department Care Team ([facility] Contact Info) Description 07/30/2024 9:30 AM EDT Office Visit [facility] [address] [place] [phone] Miranda Maravilla DO [address] [place] [address] documented as of this encounter Visit Diagnoses Not on filedocumented in this encounter Additional Health Concerns Assessment Noted Time PHQ-9 Depression Total Score: 0 05/09/19 23 9:16 AM EST documented as of this encounter Care Teams Shovel Logger Relationship Specialty Start Date End Date Miranda Maravilla DO [address] [place] [address] PCP - General Family Medicine 09/26/19 documented as of this encounter
--- OUTSIDE RECORDS SUMMARY | 2024-06-16 11:58 | XMS_ITS | Encounter Summary ---
Author Organization [employer] Address [address] [facility] [address] [place] [address] Care Team Providers Care Records Specialist Name Role Phone Miranda Maravilla DO Primary Care Provider + [phone] Reason for Visit * Reason Comments Med Refill Encounter Details Date Type Department Care Team ([facility] Contact Info) Description 05/18/2022 Refill [facility] [address] [place] [address] [phone] Miranda Maravilla DO [address] [place], [place] [phone] Social History Tobacco Use Types Packs/Day Years [...] Upcoming Encounters Date Type Department Care Team ([facility] Contact Info) Description 07/30/2024 9:30 AM EDT Office Visit [facility] [address] [place] [phone] Miranda Maravilla DO [address] [place] [address] documented as of this encounter Visit Diagnoses Not on filedocumented in this encounter Additional Health Concerns Assessment Noted Time PHQ-9 Depression Total Score: 0 05/09/19 23 9:16 AM EST documented as of this encounter Care Teams Records Specialist Relationship Specialty Start Date End Date Miranda Maravilla DO [address] [place] [address] PCP - General Family Medicine 09/26/19 documented as of this encounter
--- OUTSIDE RECORDS SUMMARY | 2024-06-16 11:58 | XMS_ITS | Encounter Summary ---
Author Organization [employer] Address [address] [facility] [address] [place] [address] Care Team Providers Care Pie Chef Name Role Phone Miranda Maravilla DO Primary Care Provider + [phone] Reason for Visit * Reason Onset Date Comments Recall Appt. 05/28/2024 Encounter Details Date Type Department Care Team ([facility] st Contact Info) Description 05/28/2024 Telephone [facility] [address] [place] [address] Miranda Maravilla DO [address] [place], [place] [phone] Recall Appt. Social History Tobacco Use Types [...] Office Visit [facility] [address] [place] [address] Miranda Maravilla DO [address] [place] [address] documented as of this encounter Visit Diagnoses Not on filedocumented in this encounter Additional Health Concerns Assessment Noted Time PHQ-9 Depression Total Score: 7 08/20/19 24 10:35 AM EDT documented as of this encounter Care Teams Pie Chef Relationship Specialty Start Date End Date Miranda Maravilla DO [address] [place] [address] PCP - General Family Medicine 09/26/19 documented as of this encounter
--- OUTSIDE RECORDS SUMMARY | 2024-06-16 11:58 | XMS_ITS | Encounter Summary ---
Author Organization [employer] Address [address] [facility] [address]t [place] [address] Care Team Providers Care Handle Sander Operator Name Role Phone Miranda Maravilla Primary Care Provider + [phone] Encounter Details Date Type Department Care Team (Late st Contact Info) Description 04/25/2024 Orders Only [facility] [address] [place], [place] [phone] Provider, MD Jo Ann Social History Tobacco [...] 07/30/2024 9:30 AM EDT Office Visit [facility] [address] [place] [address] Miranda Maravilla DO [address] [place] [address] documented as of this encounter Procedures Procedure [...] documented as of this encounter Care Teams Handle Sander Operator Relationship Specialty Start Date End Date Miranda Maravilla DO [address] [place] [address] PCP - General Family Medicine 09/26/19 documented as of this encounter
--- OUTSIDE RECORDS SUMMARY | 2024-06-16 11:58 | XMS_ITS | Clinical Summary ---
Author Organization [employer] Address [address] [facility] 7[address] [place] [address] Care Team Providers Care Process Artist Name Role Phone Miranda Maravilla DO Primary Care Provider + [phone] Allergies No known active allergies Medications ARIPiprazole [...] FOR PAIN 20 tablet 1 024 Active omeprazole (PriLOSEC) [address] capsule Take 1 capsule (20 mg) by mouth before breakfast. Do not crush or chew. 30 capsule 11 025 2025 Active azithromycin (Zithromax Z-Alan) 250 MG tablet Take 2 tablets once on day 1, then 1 tablet 1x/day for 4 days. 6 tablet Active triamcinolone (Kenalog) 0.1 % ointment APPLY 1 GRAM TOPICALLY TO AFFECTED AREA(S) TWICE DAILY IN THE MORNING AND AT BEDTIME NEEDED RASH 30 g 1 025 Active acetaminophen (Tylenol 8 Hour) 650 MG ER tablet TAKE 1 TABLET BY MOUTH EVERY 6 HOURS NEEDED FOR MILD PAIN 60 tablet 1 025 Active calcium carbonate (Calcium Antacid) 500 MG chewable tablet CHEW AND SWALLOW 2 TABLETS BY MOUTH FOUR TIMES DAILY AFTER MEALS AND AT BEDTIME NEEDED FOR HEARTBURN 150 tablet 1 025 Active triamcinolone (Kenalog) 0.1 % ointment APPLY 1 GRAM TOPICALLY TO AFFECTED AREA(S) TWICE DAILY IN THE MORNING AND AT BEDTIME NEEDED FOR RASH 30 g 1 024 2024 Discontinued acetaminophen (Tylenol 8 Hour) 650 MG ER tablet TAKE 1 TABLET BY MOUTH EVERY 6 HOURS NEEDED FOR MILD PAIN 60 tablet 1 024 2024 Discontinued calcium carbonate (Calcium Antacid) 500 MG chewable tablet CHEW AND SWALLOW 2 TABLETS BY MOUTH FOUR TIMES DAILY AFTER MEALS AND AT BEDTIME NEEDED FOR HEARTBURN 150 tablet 1 024 2024 Discontinued Active Problems [...] dysphagia 08/07/2018 Chronic gastroesophageal reflux disease 10/30/19 GEORGE (obstructive sleep apnea) 09/28/2011 Resolved Problems [...] Encounters Date Type Department Care Team Description 06/09/2024 Refill [facility] [address] [place] [address] Miranda Maravilla DO 06/06/2024 Orders Only [facility] External Provider, [facility] 06/01/2024 Refill [facility] [address] [place] [address] Miranda Maravilla DO 05/28/2024 Telephone [facility] [address] [place] [phone] Miranda Maravilla DO Recall Appt. 05/28/2024 Travel 05/17/2024 Refill [facility] [address] [place] [address] Miranda Maravilla DO 04/29/2024 6:20 PM EST Office Visit [facility] [address] [place] [address] Oliver Bates MD Viral URI 04/25/2024 Orders Only [facility] [address] [place] [address] Provider, MD Jo Ann 04/22/2024 11:00 AM EST [facility] [address] [address] Madhu Anthony MD Moderate persistent asthma with acute exacerbation (Primary Dx); Viral URI 04/18/2024 3:00 PM EST Office Visit [address] [address] Eusebia Valdez MD Onychodystrophy (Primary Dx) 04/18/2024 Travel 04/14/2024 12:00 PM EST Office Visit [address] [address] Miranda Maravilla DO Epigastric pain (Primary Dx); Fatty liver; Abnormal finding of blood chemistry, unspecified; Body mass index (BMI) 40.0-44.9, adult (CMS/HCC); Mixed hyperlipidemia; Encounter for immunization 04/14/2024 Orders Only [facility] DEPARTMENT Provider, Generic External Data 04/14/2024 Travel 04/11/2024 Refill [facility] [address] [place] [phone] Miranda Maravilla DO Pain 04/08/[address] [address] Miranda Maravilla DO Nurse Triage 04/04/2024 Refill [facility] [address] [place] [address] Miranda Maravilla DO from Last 3 Months [...] Description 07/30/2024 9:30 AM EDT Office Visit [facility] [address] [place] [address] Miranda Maravilla DO [address] [place] [address] Health Maintenance Due Date Last Done Comments [...] 08/20/2023, 08/20/19 24 SDOH Screening 08/19/2024 08/20/2023 Mammogram 11/21/2024 11/22/2023, 06/09/2023, 05/03/2023, Additional history exists Zoster Vaccines (1 of 2) 2025 Alcohol/Substance [...] topic Meningococcal Vaccine Aged Out No vishnu jsoe eligible based on patient's age to complete this topic RSV under 20 months Aged Out No longe r eligible based on patient's age to complete this topic Rotavirus Vaccines Aged Out No longer eligible based on patient's age to complete this topic Procedures Procedure Name Priority Date/Time Associated Diagnosis Comments BD DEXA AXIAL Routine 06/06/2024 10:30 AM EST US ABDOMEN COMPLETE Routine 05/06/2024 1 :03 [...] pain Abnormal finding of blood chemistry, unspecified BI MAMMOGRAM DIAGNOSTIC TOMOSYNTHESIS LEFT Routine 11/22/2023 1:20 PM EDT LAB COLOGUARD?? COLON CANCER SCREEN Routine 03/04/2023 11:20 PM EST Healthcare maintenance ZZZ HISTORICAL HEPATITIS C AB W/REFL TO HCV RNA, QN, PCR Routine 10/24/2019 9:16 AM EDT HIV 1/2 ANTIGEN/ANTIBODY, FOURTH GENERATION W/RFL Routine 10/24/2019 9:16 AM EDT from Last 3 Months or Most Recently Relevant to Health Maintenance Results * BD DEXA Axial (06/06/2024 10:30 AM EST) Anatomical Region Laterality Modality Body Radiographic Maribel ging 06/06/2024 10:3 0 AM EST Narrative 06/09/2024 7:04 AM EST ? [facility] ? [address] ?[place] [address] ? Mammography Report ? Signed ? Patient: Rickey,Brandon Y ?MR#: [id number] ? : 1975 ?Acct:[id number] ? Age/Sex: 49 / F ?ADM Date: 06/06/24 ? Loc: HO.MAMMO ? Attending Dr: Christiana Romero MD ? Ordering Physician: Christiana Romero MD ?Results: ? Date of Service: 06/06/24 ?Follow Up: ? Procedure(s): XR DEXA axial skeleton ?? Accession Number(s): [id number] ? cc: Miranda Maravilla DO; Christiana Romero MD ? EXAMINATION: ??DXA BONE DENSITY AXIAL ? HISTORY: ??Estrogen deficiency ? TECHNIQUE: [place] Dual energy absorptiometry (DEXA) ?? of the [...] is a trademark of the [employer]'s ?? [place] for Metabolic Bone Disease, a World Health Organization (WHO) ?? Collaborating Center. ? Electronically signed by: ??Felix Corral MD ??06/09/2024 07:01 AM EST ?? RP ? Dictated By: ?Felix Corral MD ? Signed By: ?<Electronically signed by Felix Corral MD in OV> ?06/09/24 0701 ? DD/ 1030 ? TD/TT: 06/06/24 1050 ? Oil Dispatcher: ? Procedure Note Blair, Image - 06/09/2024 [facility] [address] [place] [address] Dr. Valdez, [place]LES [address] Mammography Report Signed Patient: Brandno Lang YMR#: [id number] : 1975Acct:[id number] Age/Sex: 49 / FADM Date: 06/06/24 Loc: HO.MAMMO Attending Dr: Christiana Romero MD Ordering Physician: Christiana Romeroults: Date of Service: 06/06/24Follow Up: Procedure(s): XR DEXA axial skeleton Accession Number(s): [id number] cc: Miranda Maravilla DO; Christiana Romero MD EXAMINATION: DXA BONE DENSITY AXIAL HISTORY: Estrogen deficiency TECHNIQUE: [place] Dual energy absorptiometry (DEXA) of the lumbar [...] is a trademark of the [employer]'s [place] for Metabolic Bone Disease, a World Health Organization (WHO) Collaborating Center. Electronically signed by: Felix Corral MD 06/09/2024 07:01 AM EST Dictated By: Felix Corral MD Signed By: <Electronically signed by Felix Corral MD in OV> 06/09/24 0701 DD/ 1030 TD/TT: 06/06/24 1050 Oil Dispatcher: [facility] External Provider IMG DXA PROCEDURES Final Result * US Abdomen Complete (05/06/2024 1:03 PM EST) Anatomical Region Laterality Modality Abdomen Ultrasound 05/06/2024 1:03 PM EST Narrative 05/06/2024 1:05 PM EST ? [facility] ?[address] ?[place] [address] ? Ultrasound Report ? Signed ? Patient: Rickey,Brandon Y ?MR#: [id number] ? : 1975 ?Acct:[id number] ? Age/Sex: 49 / F ?ADM Date: 05/06/24 ? Loc: HO.US ? Attending Dr: Miranda Maravilla DO ? Ordering Physician: Miranda Maravilla DO ?? Date of Service: 05/06/24 ?? Procedure(s): US abdomen complete ?? Accession Number(s): [id number] ? cc: Miranda Maravilla DO; Jarrett Van [...] DD/ 1303 ? TD/TT: 05/06/24 1303 ? Oil Dispatcher: ? Procedure Note Mini Pinto - 05/06/[address] [address] Ultrasound Report Signed Patient: RickeyStephaniea YMR#: [id number] : 1975Acct:[id number] Age/Sex: 49 / FADM Date: 05/06/24 Loc: HO.US Attending Dr: Miranda Maravilla DO Ordering Physician: Miranda Maravilla DO Date of Service: 05/06/24 Procedure(s): US abdomen complete Accession Number(s): [id number] cc: Miranda Maravilla DO; Jarrett Van MD [...] 05/06/24 1304 DD/ 1303 TD/TT: 05/06/24 1303 Oil Dispatcher: us Miranda Maravilla DO IMG US PROCEDURES Final Resu lt * XR Chest 2 Views (04/30/2024 11:21 AM EST) Anatomical Region Laterality Modality Chest Radiographic Maribel ging 04/30/2024 11:2 1 AM EST Narrative 04/30/2024 1:31 PM EST ?[facility] ?[address] ?[place] [address] ?XRay Report ? Signed ? Patient: Rickey,Brandon Y ?MR#: [id number] ? : 1975 ?Acct:[id number] ? Age/Sex: 49 / F ?ADM Date: /22/25 ? Loc: HO.HHCX ? Attending Dr: Oliver Bates MD ? Ordering Physician: Oliver Bates MD ?? Date of Service: 04/30/24 ?? Procedure(s): XR chest 2V ?? Accession Number(s): [id number] ? cc: Oliver Bates MD ? EXAMINATION: [...] DD/ 1121 ? TD/TT: 04/30/24 1200 ? Oil Dispatcher: MSM ? Procedure Note Blair, Image - 04/30/[address] [address] XRay Report Signed Patient: Brandon Lang YMR#: [id number] : 1975Acct:[id number] Age/Sex: 49 / FADM Date: 04/30/24 Loc: HO.HHCX Attending Dr: Oliver Bates MD Ordering Physician: Oliver Bates MD Date of Service: 04/30/24 Procedure(s): XR chest 2V Accession Number(s): [id number] cc: Oliver Bates MD EXAMINATION: XR CHEST [...] 04/30/24 1328 DD/ 1121 TD/TT: 04/30/24 1200 Oil Dispatcher: MSM Oliver Bates MD IMG XR PROCEDURES Final Result * POCT Rapid Influenza B ONTIVEROS ID NOW (04/29/2024 7:14 PM EST) Only the most recent of2 resultswithin the time period is included. Influenza B Negative Negative, Indeterminate [facility] QC Media Lot # [id number] [facility] Lot# Expiration Date [facility] Swab 04/29/2024 7:14 PM EST Oliver Bates MD POINT OF CARE TEST ENTER/EDIT OR DERABLES Final Result [facility] [address] [place] [phone] * POCT Rapid Influenza A ONTIVEROS ID NOW (04/29/2024 7:14 PM EST) Only the most recent of2 resultswithin the time period is included. Influenza A Negative Negative, Indeterminate [facility] QC Media Lot # [id number] [facility] Lot# Expiration Date [facility] Swab 04/29/2024 7:14 PM EST us Oliver Bates MD POINT OF CARE TEST ENTER/EDIT OR DERABLES Final Result [facility] [address] [place] [address] [phone] * POCT Rapid Covid-19 BinaxNOW (04/29/2024 7:14 PM EST) Only the most recent of2 resultswithin the time period is included. [facility] Rapid COVID Ag Negative QC Media Lot # [id number] Lot# Expiration Date Swab 04/29/2024 7:14 PM EST us Oliver Bates MD POINT OF CARE TEST ENTER/EDIT OR DERABLES Final Result * Respiratory Viral Panel PCR (04/29/2024 12:00 AM EST) [facility] Adenovirus PCR Not Detected Not Detect. [facility] Bordetella pertussis PCR Not Detected Not Detect. [facility] Comment:Interpret results wi th caution. If B. pertussis isspecifically suspected, additional testing using analternate method is recommended. Bordetella parapertussis PCR Not Detected Not Detect. [facility] Chlamydia pneumoniae PCR Not Detected Not Detect. [facility] Coronavirus 229E PCR Not Detected Not Detect. [facility] Coronavirus HKU1 PCR Not Detected Not Detect. [facility] Coronavirus NL63 PCR Not Detected Not Detect. [facility] Coronavirus OC43 PCR Not Detected Not Detect. [facility] SARS-CoV-2 PCR Not Detected Not Detect. [facility] Comment:SARS-CoV-2 not detec michael by real-time RT-PCR.Note: If clinical suspicion for Sars-CoV-2 is high, continueto maintain precautions and consider repeat testing.Test results should be interpreted in the context ofclinical findings and other laboratory data.Rare polymorphisms exist that could lead to false-negativeor false-positive results. If results do not match theclinical findings, additional testing should be considered.Results reported to [facility].This test has been authorized by the FDA under the EmergencyUse Authorization (EUA) for use by authorized laboratories. Influenza A PCR Not Detected Not Detect. [facility] Influenza B PCR Not Detected Not Detect. [facility] Human metapneumovirus PCR Not Detected Not Detect. [facility] Rhino/Enterovirus PCR Not Detected Not Detect. [facility] Mycoplasma pneumoniae PCR Not Detected Not Detect. [facility] Parainfluenza 1 PCR Not Detected Not Detect. [facility] Parainfluenza 2 PCR Not Detected Not Detect. [facility] Parainfluenza 3 PCR Not Detected Not Detect. [facility] Parainfluenza 4 PCR Not Detected Not Detect. [facility] RSV PCR Not Detected Not Detect. [facility] Resp Panel NA Note See Note H [facility] Comment:All results must be correlated [...] assay is performed by Multiplexed PCR, utilizing [employer] Film Array. 04/29/2024 04/29/2024 Oliver Bates MD LAB BLOOD ORDERABLES Final Resul t [facility] [address] [place] [address] [phone] * Dermatopathology Report (04/18/2024 2:57 PM EST) us Historical Provider LAB BLOOD ORDERABLES Barby l Result * Vitamin D, 25-Hydroxy, Total, Immunoassay (04/14/2024 12:38 PM EST) Pathologist [facility] Vitamin D 25-OH Total 42.5 >30 ng/mL [facility] Comment:Health Based Referen ce Values*< 20 ng/mL Anmxauhhf72-18 ng/mL Insufficient> 30 ng/mL Sufficient*Sarah MENDEZ. N [...] DO LAB BLOOD ORDERABLES Final R esult [facility] [address] [place] [phone] * (ABNORMAL) CBC auto differential (04/14/2024 12:38 PM EST) Pathologist [facility] White Blood Count 5.0 4.8 - 10.8 X10*3/uL [facility] Red Blood Count 4.70 4.20 - 5.50 X10*6/uL [facility] Hemoglobin 12.7 12.0 - 16.0 g/dl [facility] Hematocrit 40.7 37.0 - 47.0 % [facility] Mean Corpuscular Volume 86.6 80.0 - 98.0 fL [facility] Mean Corpuscular Hemoglobin 27.0 27.0 - 33.0 pg [facility] Mean Corpuscular HGB Conc 31.2 31.0 - 35.0 g/dl [facility] Red Cell Distribution Width 17.2(H) 11.0 - 16.0 % [facility] Platelet Count 155(L) 160 - 400 X10*3/uL [facility] Mean Platelet Volume 11.1 9.4 - 12.3 fL [facility] Neutrophils Percent Auto 73.6(H) 45 - 73 % [facility] Imm Gran Pct Auto 0.4 0.0 - 0.4 % [facility] Lymphocytes Percent Auto 11.3(L) 20 - 40 % [facility] Monocytes Percent Auto 8.7 2 - 11 % [facility] Eosinophils Percent Auto 5.6(H) 0 - 4 % [facility] Basophils Percent Auto 0.4 0 - 2 % [facility] NRBC Pct Auto 0.0 0.0 - 0.2 /100WBC [facility] Neutrophils Absolute Auto 3.7 2.0 - 8.3 x10*3/uL [facility] Imm Gran Abs Auto 0.02 0.00 - 0.03 X10*3/uL [facility] Lymphocytes Absolute Auto 0.6(L) 1.2 - 4.9 X10*3/uL [facility] Monocytes Absolute Auto 0.4 0.1 - 1.2 X10*3/uL [facility] Eosinophils Absolute Auto 0.3 0.0 - 0.4 X10*3/uL [facility] Basophils Absolute Auto 0.0 0.0 - 0.2 X10*3/uL [facility] NRBC Abs Auto 0.000 0.0 - 0.012 X10*3/uL [facility] 04/14/2024 12:3 8 PM EST 04/14/2024 1:44 PM EST us Generic External Data Provider LAB BLOOD ORDERAB LES Final Result [facility] [address] [place] [phone] * Cancer antigen 27.29 (04/14/2024 12:38 PM EST) CA 27.29 16 <38 U/mL [facility] Comment:This test was perfor med [...] adjustment made inOctober 2023 by the reagent special events planner. In the lowrange for this assay (<38 U/mL), this increase may begreater than 20%. Serially monitored results shouldalways be used in conjunction with other diagnosticprocedures, including clinical evaluation.THIS TEST WAS PERFORMED AT:[employer] [place] [id number] ROSE MD 04/14/2024 12:3 8 PM EST 04/14/2024 1:44 PM EST us Generic External Data Provider LAB BLOOD ORDERAB LES Final Result [facility] [address] [place] [phone] * Alpha-Fetoprotein, Tumor Marker (04/14/2024 12:38 PM EST) Alpha Fetoprotein 3.1 ng/mL [facility] Comment:Reference Range: <6. 1The use of AFP as a tumor marker in females is not recommended.This test was performed using the SevenLuncheschemiluminescent method. Values obtained fromdifferent assay methods cannot be usedinterchangeably. AFP levels, regardless ofvalue, should not be interpreted as absoluteevidence of the presence or absence of disease.THIS TEST WAS PERFORMED AT:[employer] [address] [id number] ROSE MD Blood Venous blood specimen / Unknown 04/14/2024 12:38 PM EST 04/14/2024 1:44 PM EST Miranda Maravilla DO LAB BLOOD ORDERABLES Final R esult Performing Organization Address City/[facility]/ZIP Co de Phone Number [facility] [address] [place] [phone] [phone] * (ABNORMAL) CBC (04/14/2024 12:38 PM EST) White Blood Count 4.9 4.8 - 10.8 X10*3/uL [facility] Red Blood Count 4.69 4.20 - 5.50 X10*6/uL [facility] Hemoglobin 12.5 12.0 - 16.0 g/dl [facility] Hematocrit 40.6 37.0 - 47.0 % [facility] Mean Corpuscular Volume 86.6 80.0 - 98.0 fL [facility] Mean Corpuscular Hemoglobin 26.7(L) 27.0 - 33.0 pg [facility] Mean Corpuscular HGB Conc 30.8(L) 31.0 - 35.0 g/dl [facility] Red Cell Distribution Width 17.2(H) 11.0 - 16.0 % [facility] Platelet Count 161 160 - 400 X10*3/uL [facility] Mean Platelet Volume 11.3 9.4 - 12.3 fL [facility] NRBC Pct Auto 0.0 0.0 - 0.2 /100WBC [facility] NRBC Abs Auto 0.000 0.0 - 0.012 X10*3/uL [facility] Blood Venous blood specimen / Unknown 04/14/2024 12:38 PM EST 04/14/2024 1:44 PM EST Miranda Maravilla DO LAB BLOOD ORDERABLES Final R esult Performing Organization Address City/[facility]/ZIP Co de Phone Number [facility] [address] [place] [phone] [phone] * Lipase (04/14/2024 12:38 PM EST) Lipase 31 8 - 78 U/L [facility] Blood Venous blood specimen / Unknown 04/14/2024 12:38 PM EST 04/14/2024 1:44 PM EST [facility] BLOOD ORDERABLES Final R esult [facility] [address] [place] [phone] * Hemoglobin A1c (04/14/2024 12:38 PM EST) Hemoglobin A1c 5.3 <6.0 % [facility] Comment:Hemoglobin A1C Refer ence Range Adults: 4.8 - 6.0 % Non diabetic: < 6.0 % Goal: < 7.0 %Additional Action Suggested: > 8.0 %Note: Hemoglobin A1c results are invalid for patients with abnormal amounts of HbF. Blood transfusions may impact the HbA1c concentration in the patient sample. Estimated Average Glucose 105 mg/dL [facility] Comment:eAG = Estimated ave rage glucose which is %A1C expressed asaverage glucose, using the formula of the V8M-BkgnbdqSjzvwpt Glucose study (ADAG), Diabetes Care, Vol.31,#8,Nov. 2007 Blood Venous blood specimen / Unknown 04/14/2024 12:38 PM EST 04/14/2024 1:44 PM EST us Miranda Renita DO LAB BLOOD ORDERABLES Final R esult [facility] [address] [place] [address] [phone] * Amylase (04/14/2024 12:38 PM EST) Amylase 57 28 - 100 U/L [facility] Blood Venous blood specimen / Unknown 04/14/2024 12:38 PM EST 04/14/2024 1:44 PM EST Miranda Maravilla DO LAB BLOOD ORDERABLES Final R esult Performing Organization Address [facility]/ZIP Co de Phone Number [facility] [address] [place] [phone] * Hepatic Function Panel (04/14/2024 12:38 PM EST) Bilirubin, Direct 0.1 0.0 - 0.5 mg/dL [facility] Blood Venous blood specimen / Unknown 04/14/2024 12:38 PM EST 04/14/2024 1:44 PM EST Miranda Maravilla LAB BLOOD ORDERABLES Final R esult Performing Organization Address [facility] Co de Phone Number [facility] [address] [place] [phone] * (ABNORMAL) Lipid Panel, Standard (04/14/2024 12:38 PM EST) Triglycerides 82 <150 mg/dL [facility] Comment:Desirable Triglyceri de: less than 150 mg/dLBorderline High Triglyceride 150-199 mg/dLHigh Triglyceride: 200-499 mg/dLVery High Triglyceride: greater than or equal to 5OO mg/dL Cholesterol 199 <200 mg/dL [facility] Comment:Desirable Cholestero l: less than 200 mg/dLBorderline High Cholesterol: 200-239 mg/dLHigh Cholesterol: greater than 239 mg/dL LDL Cholesterol Calculated 104(H) <100 mg/dL [facility] Comment:Desirable LDL: less than 100 mg/dLNear Optimal/Above Optimal LDL: 110- 129 mg/dLBorderline High LDL: 130-159 mg/dLHigh LDL: 160-189 mg/dLVery High LDL: greater than or equal to 190 mg/dL HDL Cholesterol 79 >40 mg/dL [facility] Comment:Desirable HDL: great er than 40 mg/dL Note: This HDL assay may give artificially low results in patients with liver disease. Blood Venous blood specimen / Unknown 04/14/2024 12:38 PM EST 04/14/2024 1:44 PM EST us Miranda Maravilla DO LAB BLOOD ORDERABLES Final R esult [facility] [address] [place] [phone] [phone] * (ABNORMAL) Comprehensive Metabolic Panel (04/14/2024 12:38 PM EST) Sodium 142 135 - 145 mmol/L [facility] Potassium 4.0 3.3 - 5.1 mmol/L [facility] Chloride 105 96 - 108 mmol/L [facility] Carbon Dioxide 31(H) 22 - 29 mmol/L [facility] Anion Gap 10(L) 12 - 20 [facility] Urea Nitrogen (BUN) 11 9 - 16 mg/dL [facility] Creatinine, Serum 0.63 0.5 - 1.4 mg/dL [facility] Estimated Glomerular Filt Rate >60 [facility] Comment:Chronic Kidney Disea se: Estimated GFR < 60 mL/min/1.57m2Xafthw Kidney Disease: Estimated GFR < 15 mL/min/1.73m2 Glucose 119(H) 60 - 115 mg/dL [facility] Calcium 9.5 8.4 - 10.2 mg/dL [facility] Bilirubin, Total 0.4 0.0 - 1.0 mg/dL [facility] Aspartate Amino Transferase 23 5 - 31 U/L [facility] Alanine Aminotransferase 23 0 - 31 U/L [facility] Total Protein 7.2 6.5 - 8.0 g/dL [facility] Albumin Level 3.8 3.5 - 5.0 g/dL [facility] Alkaline Phosphatase 85 39 - 117 U/L [facility] 04/14/2024 12:3 8 PM EST 04/14/2024 1:44 PM EST us Generic External Data Provider LAB BLOOD ORDERAB LES Final Result [facility] [address] [place] [address] [phone] * BI Mammogram Diagnostic Tomosynthesis Left (11/22/2023 1:20 PM EDT) Anatomical Region Laterality Modality Breast Left Mammography 11/22/2023 1:20 PM EDT Narrative 11/22/2023 2:00 PM EDT ? [facility] ? [address] ?[place] [address] ? Mammography Report ? Signed ? Patient: Brandon Lang ?MR#: [id number] ? : 1975 ?Acct:[id number] ? Age/Sex: 48 / F ?ADM Date: 11/22/23 ? Loc: HO.MAMMO ? Attending Dr: Christiana Romero MD ? Ordering Physician: Christiana Romero MD ?Results: 6Known ?? Biopsy Proven Malignancy ? Date of Service: 11/22/23 ?Follow Up: Surgical Consult ? Procedure(s): MM tomosynthesis diagnostic LT ?? Accession Number(s): [id number] ? cc: Miranda Maravilla DO; Christiana Romero MD ? EXAMINATION: ?? MM DIAGNOSTIC DIGITAL BREAST TOMOSYNTHESIS, LEFT ? CLINICAL INFORMATION: ? Patient status post neoadjuvant chemotherapy, stopped 15 days prior. ?? Evaluate lesion size. ? COMPARISON: ?? -Mammography: 05/03/2023 ?? -Ultrasound left breast 09/13/2023 ?? -PET/CT 06/19/2023. ? TECHNIQUE: ?? Digital left breast tomosynthesis is performed in both the craniocaudal ?? and mediolateral oblique views along with computer-aided detection ?? (CAD). Synthesized 2D images are generated from the tomosynthesis. ? FINDINGS: ?? There are scattered areas of fibroglandular density (ACR BI-RADS breast ?? composition Category b). ? There has been no significant interval change in the size or appearance ?? of the retroareolar mass with internal biopsy clip when compared with ?? 09/13/2023 ultrasound. ? MM/MM tomosynthesis diagnostic LT ?? IMPRESSION: ?? There are no significant changes from prior study. ? ASSESSMENT: ? BI-RADS BI-RADS 6 - Known biopsy proven malignancy ? RECOMMENDATION: ?? Continued oncologic/surgical management recommended. ? Results were provided to the patient at time of visit by the ?? technologist. ? Dictated By: ?Melquiades Francisco MD ? Signed By: ?<Electronically signed by Melquiades Francisco MD in OV> ?11/22/23 1356 ? DD/ 1320 ? TD/TT: ? Oil Dispatcher: ? Procedure Note Mini Pinto - 11/22/2023 [facility] [address] [place] [address] Dr. [place], [place] [address] Mammography Report Signed Patient: Brandon Lang YMR#: [id number] : 1975Acct:[id number] Age/Sex: 48 / FADM Date: 11/22/23 Loc: HO.MAMMO Attending Dr: Christiana Romero MD Ordering Physician: Christiana Romeroesults: 6Known Biopsy Proven Malignancy Date of Service: 11/22/23Follow Up: Surgical Consult Procedure(s): MM tomosynthesis diagnostic LT Accession Number(s): [id number] cc: Miranda Maravilla Zubeena MD EXAMINATION: MM DIAGNOSTIC DIGITAL BREAST TOMOSYNTHESIS, LEFT CLINICAL INFORMATION: Patient status post neoadjuvant chemotherapy, stopped 15 days prior. Evaluate lesion size. COMPARISON: -Mammography: 05/03/2023 -Ultrasound left breast 09/13/2023 -PET/CT 06/19/2023. TECHNIQUE: Digital left breast tomosynthesis is performed in both the craniocaudal and mediolateral oblique views along with computer-aided detection (CAD). Synthesized 2D images are generated from the tomosynthesis. FINDINGS: There are scattered areas of fibroglandular density (ACR BI-RADS breast composition Category b). There has been no significant interval change in the size or appearance of the retroareolar mass with internal biopsy clip when compared with 09/13/2023 ultrasound. MM/MM tomosynthesis diagnostic LT IMPRESSION: There are no significant changes from prior study. ASSESSMENT: BI-RADS BI-RADS 6 - Known biopsy proven malignancy RECOMMENDATION: Continued oncologic/surgical management recommended. Results were provided to the patient at time of visit by the technologist. Dictated By: Melquiades Francisco MD Signed By: <Electronically signed by Melquiades Francisco MD in OV> 11/22/23 1356 DD/ 1320 TD/TT: Oil Dispatcher: [facility] External Provider IMG BI PROCEDURES Edited Result - Final * (ABNORMAL) Cologuard?? colon cancer screening (03/04/2023 11:20 PM EST) Cologuard Result Positive( A) Negative 03/12/2023 10:35 AM EST [facility] (CLIA #:[id number]) Comment: POSITIVE TEST RESULT. A positive Cologuard [...] (Elliot Dye al, N Engl J Med 2014;370(14):6122-6885.) Cologuard may produce a false negative or false positive result (no colorectal cancer or precancerous polyp present at colonoscopy follow up). A negative Cologuard test result does not guarantee the absence of CRC or advanced adenoma (pre-cancer). The current Cologuard screening interval is every 3 years. ([place] [employer] Society and U.S. Multi-Society Task Force). Cologuard performance data in a 10,000 patient pivotal study using colonoscopy as the reference method can be accessed at the following location: [email or web address]/results. Additional description of the Cologuard test process, warnings and precautions can be found at www.[employer]ent[employer]PeopleLinxrd.com. Stool specimen (specimen) 03/04/2023 11:20 PM EST 03/06/2023 5:06 PM EST Miranda Maravilla DO LAB MOLECULAR DIAGNOSTICS OR DERABLES Final Result [facility] (CLIA #:[id number]) [place] [address], * HEPATITIS C AB W/REFL TO HCV RNA, QN, PCR (10/24/2019 9:16 AM EDT) HEPATITIS C ANTIBODY NON-REACT QUIANA NON-REACT QUIANA [facility] INDEX 0.02 <1.00 [facility] Comment: ?? HCV antibody was non-reactive. There is no laboratory ?? evidence of HCV infection. ?? In most cases, no further action is required. However, if recent HCV exposure is suspected, a test for HCV RNA (test code 55525) is suggested. ?? For additional information please refer to http://[employer]/faq/NBF00i2 (This link is being provided for informational/ educational purposes only.) ?? HEPATITIS C ANTIBODY NON-REACT QUIANA NON-REACT QUIANA [facility] INDEX 0.02 <1.00 [facility] Comment: ?? HCV antibody was non-reactive. There is no laboratory ?? evidence of HCV infection. ?? In most cases, no further action is required. However, if recent HCV exposure is suspected, a test for HCV RNA (test code 11918) is suggested. ?? For additional information please refer to http://[employer]/faq/GDJ63b9 (This link is being provided for informational/ educational purposes only.) ?? HEPATITIS C ANTIBODY NON-REACT QUIANA NON-REACT QUIANA [facility] INDEX 0.02 <1.00 [facility] Comment: ?? HCV antibody was non-reactive. There is no laboratory ?? evidence of HCV infection. ?? In most cases, no further action is required. However, if recent HCV exposure is suspected, a test for HCV RNA (test code 14166) is suggested. ?? For additional information please refer to http://[employer]/faq/WCN73m6 (This link is being provided for informational/ educational purposes only.) ?? 10/24/2019 9:16 AM EDT us Miranda Maravilla DO HISTORICAL/NON ORDERABLE LAB S Final Result [facility] [address] [place] [address], * HIV 1/2 ANTIGEN/ANTIBODY,FOURTH GENERATION W/RFL (10/24/2019 [...] ? For additional information please refer to http://[employer]/faq/SSN279 (This link is being provided for informational/ [...] ? For additional information please refer to http://[employer]/faq/OOO778 (This link is being provided for informational/ [...] ? For additional information please refer to http://education.[employer]/faq/CYR562 (This link is being provided for informational/ educational purposes only.) ? The performance of this assay has not been clinically validated in patients less than 2 years old. ?? 10/24/2019 9:16 AM EDT us Miranda Maravilla DO LAB BLOOD ORDERABLES Final R esult [facility] [address] from Last 3 Months or Most Recently Relevant to Health Maintenance Insurance [facility] STANDARD MEDICARE Advance Directives Documents on File Type Date Recorded Patient Content Curator Expl anation Advance Directives and Livin g Will 06/13/2023 3:52 PM HCP Form Care Teams Process Artist Relationship Specialty Start Date End Date Miranda Maravilla DO [address] [place] [address] PCP - General Family Medicine 09/26/19
--- OUTSIDE RECORDS SUMMARY | 2024-06-16 11:58 | XMS_ITS | Encounter Summary ---
Author Organization [employer] Address [address] [facility] 7t [place] [address] Care Team Providers Care Care Coordination Manager Name Role Phone Miranda Maravilla DO Primary Care Provider + [phone] Reason for Visit * Reason Comments Med Refill Encounter Details Date Type Department Care Team ([facility] Contact Info) Description 06/11/2023 Refill [facility] [address] [place] [address] Miranda Maravilla DO [address] [place], [place] [phone] Pain Social History Tobacco Use Types Packs/Day [...] the past 12 months, has t he [employer], gas, oil or water company threatened to [...] Description 07/30/2024 9:30 AM EDT Office Visit [facility] [address] [place] [address] Miranda Maravilla DO [address] [place] [address] documented as of this encounter Visit Diagnoses Diagnosis Pain Generalized pain documented in this encounter Additional Health Concerns Assessment Noted Time PHQ-9 Depression Total Score: 0 05/09/19 23 9:16 AM EST documented as of this encounter Care Teams Care Coordination Manager Relationship Specialty Start Date End Date Miranda Maravilla DO [address] [place] [address] PCP - General Family Medicine 09/26/19 documented as of this encounter
--- OUTSIDE RECORDS SUMMARY | 2024-06-16 11:58 | XMS_ITS | Encounter Summary ---
Author Organization [employer] Address [address] [facility] [address] [place] [address] Care Team Providers Care Pantry Chef Name Role Phone Miranda Maravilla DO Primary Care Provider [phone] Encounter Details Date Type Department Care Team ([facility] Contact Info) Description 04/05/2022 Telephone [facility] [address] [place] [address] Miranda Maravilla DO [address] [place], [place] [phone] Social History Tobacco Use Types Packs/Day Years [...] Description 07/30/2024 9:30 AM EDT Office Visit [facility] [address] [place] [address] Miranda Maravilla DO [address] [place] [address] documented as of this encounter Visit Diagnoses Not on filedocumented in this encounter Additional Health Concerns Assessment Noted Time PHQ-9 Depression Total Score: 0 03/28/20 22 10:45 AM EST documented as of this encounter Care Teams Pantry Chef Relationship Specialty Start Date End Date Miranda Maravilla DO [address] [place] [address] PCP - General Family Medicine 09/26/19 documented as of this encounter
--- OUTSIDE RECORDS SUMMARY | 2024-06-16 11:58 | XMS_ITS | Encounter Summary ---
Author Organization [employer] Address [address] [facility] [address] [place] [address] Care Team Providers Care Consumer Attorney Name Role Phone Miranda Maravilla DO Primary Care Provider + [phone] Reason for Visit * Reason Comments Med Refill Encounter Details Date Type Department Care Team ([facility] st Contact Info) Description 06/01/2024 Refill [facility] [address] [place] [address] Miranda Maravilla DO [address] [place], [place] [phone] Social History Tobacco Use Types Packs/Day Years [...] 9:30 AM EDT Office Visit [facility] [address] [place] [address] Miranda Maravilla DO [address] [place] [address] documented as of this encounter Visit Diagnoses Not on filedocumented in this encounter Additional Health Concerns Assessment Noted Time PHQ-9 Depression Total Score: 7 08/20/19 24 10:35 AM EDT documented as of this encounter Care Teams Consumer Attorney Relationship Specialty Start Date End Date Miranda Maravilla DO [address] [place] [address] PCP - General Family Medicine 09/26/19 documented as of this encounter
--- OUTSIDE RECORDS SUMMARY | 2024-06-16 11:58 | XMS_ITS | Encounter Summary ---
Author Organization [employer] Address [address] [facility] [address] [place] [address] Care Team Providers Care Boulevard Glassware Replacer Name Role Phone Miranda Maravilla DO Primary Care Provider + [phone] Reason for Visit * Reason Comments Med Refill Encounter Details Date Type Department Care Team ([facility] st Contact Info) Description 06/09/2024 Refill [facility] [address] [place] [address] Miranda Maravilla DO [address] [place], [place] [phone] Social History Tobacco Use Types Packs/Day Years [...] 07/30/2024 9:30 AM EDT Office Visit [facility] [address] [place] [address] Miranda Maravilla DO [address] [place] [address] documented as of this encounter Visit Diagnoses Not on filedocumented in this encounter Additional Health Concerns Assessment Noted Time PHQ-9 Depression Total Score: 7 08/20/19 24 10:35 AM EDT documented as of this encounter Care Teams Boulevard Glassware Replacer Relationship Specialty Start Date End Date Miranda Maravilla DO [address] [place] [address] PCP - General Family Medicine 09/26/19 documented as of this encounter
== END 2024-06-16 10:37 | disposition home or self-care (01) ==
LOC: HO.HGS 10:37
PROVIDERS: PCP Family Medicine; Visit Provider Surgery
DX: Z90.49 Acquired absence of other specified parts of digestive tract (principal); Z98.890 Other specified postprocedural states
CPT/HCPCS: 99024

== ENCOUNTER → 2024-06-16 10:37 | Outpatient (BNVA) | payer MEDICARE, MEDICAID, SELFPAY | PROVIDERS: PCP Family Medicine; Visit Provider Surgery | DX: Z90.49 Acquired absence of other specified parts of digestive tract (principal); Z98.890 Other specified postprocedural states | CPT/HCPCS: 99212 ==

== ENCOUNTER 2024-06-24 10:41 | Outpatient (AMB) | payer MEDICARE, MEDICAID, SELFPAY ==
--- NOTE | 2024-06-24 10:43 | MHC.OFFVIS ---
Intake Visit Reasons: S/P lap chandler, portacath removal Intake Note: Patient here s/p 1. Laparoscopic cholecystectomy 2. Right chest Port-A-Cath removal. Reports incisions healing well. Patient c/o: no concerns. No longer taking rx pain meds. Surgery: 06-13-2024 Electrician Manager Required: No Accompanied by: Mother Allergies No Known Allergies [No Known Allergies*] Allergy (Unknown, Verified 06/24/24 10:47) HPI Comments Details: Patient presents with her mother for follow-up. She has no incisional difficulties or complaints. She is starting a diet. Having regular bowel habits. FOR[facility]LY [facility], [facility] Medical History Menopause Breast mass, left Hospital discharge follow-up Right leg swelling Pulmonary hypertension Acute on chronic respiratory failure with hypoxia and hypercapnia Asthma with exacerbation Pneumonia Status post repair of fracture of orbit COVID Cough Chest pain Sleep apnea Intellectual disability Morbid obesity Intellectual disability Colon cancer screening GEORGE (obstructive sleep apnea) Oxygen desaturation during sleep Asthma Surgical History History of lumpectomy of left breast (12/07/23) Encounter for insertion of tunneled central venous catheter (CVC) with port Cancer of left breast, stage 3 Status post spinal surgery (~1994) History of open reduction and internal fixation (ORIF) procedure History of esophagogastroduodenoscopy (EGD) Family History Mother Diabetes Hypertension Father Hypertension Maternal Uncle Throat cancer Social History Household Members: Spouse and Children Household Members Other:: mother Housing: House Are you a primary zoo caretaker to a significant other at home: No Do you presently have visiting nurse or other home services: Yes (DETENTION WORKER) Alcohol intake: never Comment: counts correct Patient Tobacco Use Status: Never used Tobacco e-Cigarette/Vaping Use: Never Used Advance Directives Date on File: 08/14/18 service: No Current occupational status: disabled Physical Exam Eyes Other: Anicteric Chest Other: Port site incision clean dry and intact healing well GI Other: Abdominal incisions all clean dry and intact healing well Assessment & Plan Assessment & Plan (1) Status post laparoscopic cholecystectomy: Code(s): Z90.49 - Acquired absence of other specified parts of digestive tract Category: Medical (2) History of removal of Port-a-Cath: Code(s): Z98.890 - Other specified postprocedural states Category: Medical Plan Patient was mother have been given local instructions and she will see me regarding her most recent surgery p.r.n.. The meantime, patient was scheduled for follow-up surveillance mammogram and she will see me after this in the few months time. All questions answered. Coding Level of Care Code Global (69732) Diagnoses Status post laparoscopic cholecystectomy Z90.49 History of removal of Port-a-Cath Z98.890
--- OUTSIDE RECORDS SUMMARY | 2024-06-24 12:40 | XMS_ITS | Encounter Summary ---
Author Organization [employer] Address [address] [facility] [address] [address] Care Team Providers Care Safe And Vault Service Mechanic Name Role Phone Miranda Maravilla DO Primary Care Provider [phone] Encounter Details Date Type Department Care Team ([facility] Contact Info) Description 04/05/2022 Telephone [facility] [address] [place] [address] Miranda Maravilla DO [address] [place], [place] [phone] Social History Tobacco Use Types Packs/Day Years [...] Upcoming Encounters Date Type Department Care Team ([facility] Contact Info) Description 07/30/2024 9:30 AM EDT Office Visit [facility] [address] [place] [address] Miranda Maravilla DO [address] [place] [address] documented as of this encounter Visit Diagnoses Not on filedocumented in this encounter Additional Health Concerns Assessment Noted Time PHQ-9 Depression Total Score: 0 03/28/20 22 10:45 AM EST documented as of this encounter Care Teams Safe And Vault Service Mechanic Relationship Specialty Start Date End Date Miranda Maravilla DO [address] [place] [address] PCP - General Family Medicine 09/26/19 documented as of this encounter
--- OUTSIDE RECORDS SUMMARY | 2024-06-24 12:40 | XMS_ITS | Encounter Summary ---
Author Organization [employer] Address [address] [facility] [address] [place] [address] Care Team Providers Care Manager Relocation Name Role Phone Miranda Maravilla DO Primary Care Provider + [phone] Reason for Visit * Reason Comments Med Refill Encounter Details Date Type Department Care Team ([facility] st Contact Info) Description 06/09/2024 Refill [facility] [address] [place] [address] Miranda Maravilla DO [address] [place], [place] [phone] Social History Tobacco Use Types Packs/Day Years [...] Description 07/30/2024 9:30 AM EDT Office Visit [facility] [address] [place] [address] Miranda Maravilla DO [address] [place] [address] documented as of this encounter Visit Diagnoses Not on filedocumented in this encounter Additional Health Concerns Assessment Noted Time PHQ-9 Depression Total Score: 7 08/20/19 24 10:35 AM EDT documented as of this encounter Care Teams Manager Relocation Relationship Specialty Start Date End Date Miranda Maravilla DO [address] [place] [address] PCP - General Family Medicine 09/26/19 documented as of this encounter
--- OUTSIDE RECORDS SUMMARY | 2024-06-24 12:40 | XMS_ITS | Encounter Summary ---
Author Organization [employer] Address [address] [facility] 7t [place] [address] Care Team Providers Care Integration Technician Name Role Phone Miranda Maravilla DO Primary Care Provider + [phone] Encounter Details Date Type Department Care Team (Late st Contact Info) Description 06/06/2024 Orders Only [facility] External Provider, [facility] Social History Tobacco Use Types Packs/Day Years [...] Description 07/30/2024 9:30 AM EDT Office Visit [facility] [address] [facility] [place] [address] Miranda Maravilla, DO 230 [facility] [address] documented as of this encounter Procedures Procedure Name Priority Date/Time Associated Diagnosis Comments BD DEXA AXIAL Routine 06/06/2024 10:30 AM EST documented in this encounter Results * BD DEXA Axial (06/06/2024 10:30 AM EST) Anatomical Region Laterality Modality Body Radiographic Maribel ging 06/06/2024 10:3 0 AM EST Narrative 06/09/2024 7:04 AM EST ? [facility] [place] ? [address] ?[place] [address] ? Mammography Report ? Signed ? Patient: Brandon Lang Y ?MR#: [id number] ? : 1975 ?Acct:[id number] ? Age/Sex: 49 / F ?ADM Date: 02/28/25 ? Loc: HO.MAMMO ? Attending Dr: Christiana Romero MD ? Ordering Physician: Christiana Romero MD ?Results: ? Date of Service: 06/06/24 ?Follow Up: ? Procedure(s): XR DEXA axial skeleton ?? Accession Number(s): [id number] ? cc: Miranda Maravilla DO; Christiana Romero MD ? EXAMINATION: ??DXA BONE DENSITY AXIAL ? HISTORY: ??Estrogen deficiency ? TECHNIQUE: Guest[employer]ots Dual energy absorptiometry (DEXA) ?? of the [...] the [employer]'s ?? [facility] for Metabolic Bone Disease, a World Health Organization (WHO) ?? Collaborating Center. ? Electronically signed by: ??Felix Corral MD ??06/09/2024 07:01 AM EST ?? RP ? Dictated By: ?Felix Corral MD ? Signed By: ?<Electronically signed by Felix Corral MD in OV> ?06/09/24 0701 ? DD/ 1030 ? TD/TT: 06/06/24 1050 ? Tele Grout Sewer Line Repairer: ? Procedure Note Donotuseinterpreter, Image - 06/09/2024 [facility] [address] [place], [place] [address] Mammography Report Signed Patient: Brandon Lang YMR#: [id number] : 1975Acct:[id number] Age/Sex: 49 / FADM Date: 06/06/24 Loc: HO.MAMMO Attending Dr: Christiana Romero MD Ordering Physician: Christiana oRmeroesults: Date of Service: 06/06/24Follow Up: Procedure(s): XR DEXA axial skeleton Accession Number(s): [id number] cc: Miranda Maravilla DO; Christiana Romero MD EXAMINATION: DXA BONE DENSITY AXIAL HISTORY: Estrogen deficiency TECHNIQUE: GuestShots Dual energy absorptiometry (DEXA) of the lumbar [...] of the [employer] Metabolic [facility] Disease, a World Health Organization (WHO) Collaborating Center. Electronically signed by: Felix Corral MD 06/09/2024 07:01 AM EST Dictated By: Felix Corral MD Signed By: <Electronically signed by Felix Corral MD in OV> 06/09/24 0701 DD/ 1030 TD/TT: 06/06/24 1050 Tele Grout Sewer Line Repairer: [employer] External Provider IMG DXA PROCEDURES Final Result documented in this encounter Visit Diagnoses Not on filedocumented in this encounter Additional Health Concerns Assessment Noted Time PHQ-9 Depression Total Score: 7 08/20/19 24 10:35 AM EDT documented as of this encounter Care Teams Integration Technician Relationship Specialty Start Date End Date Miranda Maravilla DO [address] [place] [address] PCP - General Family Medicine 09/26/19 documented as of this encounter
--- OUTSIDE RECORDS SUMMARY | 2024-06-24 12:41 | XMS_ITS | Encounter Summary ---
Author Organization [employer] Address [address] [facility] [address] [place] [address] Care Team Providers Care Gun Barrel Finisher Name Role Phone Miranda Maravilla DO Primary Care Provider + [phone] Reason for Visit * Reason Comments Med Refill Encounter Details Date Type Department Care Team ([facility] st Contact Info) Description 06/01/2024 Refill [facility] [address] [place] [address] Miranda Maravilla DO [address] [place], [place] [phone] Social History Tobacco Use Types Packs/Day Years [...] Description 07/30/2024 9:30 AM EDT Office Visit [facility] [address] [place] [address] Miranda Maravilla DO [address] [place] [address] documented as of this encounter Visit Diagnoses Not on filedocumented in this encounter Additional Health Concerns Assessment Noted Time PHQ-9 Depression Total Score: 7 08/20/19 24 10:35 AM EDT documented as of this encounter Care Teams Gun Barrel Finisher Relationship Specialty Start Date End Date Miranda Maravilla DO [address] [place] [address] PCP - General Family Medicine 09/26/19 documented as of this encounter
--- OUTSIDE RECORDS SUMMARY | 2024-06-24 12:41 | XMS_ITS | Encounter Summary ---
Author Organization [employer] Address [address] [facility] [address] [place] [address] Care Team Providers Care Refinery Operator Coking Name Role Phone Miranda Maravilla DO Primary Care Provider + [phone] Reason for Visit * Reason Onset Date Comments Forms/questionnaires 06/18/2024 Encounter Details Date Type Department Care Team ([facility] Contact Info) Description 06/18/2024 Telephone [facility] [address] [place] [address] Missy Gardner, RN [address] [place] [address] Forms/questionnaires Social History Tobacco Use Types Packs/Day Years [...] encounter Miscellaneous Notes * Telephone Encounter - Missy Gardner RN - 06/18/2024 9:23 AM EDT Order form received from [facility] to be able to administer pt. Standing orders of APAP and Tums. Signed by PCP, faxed back, confirmation received documented in this encounter Plan of Treatment Upcoming Encounters Date Type Department Care Team (Late st Contact Info) Description 07/30/2024 9:30 AM EDT Office Visit [facility] [address] [place] [address] Miranda Maravilla DO [address] [place] [address] documented as of this encounter Visit Diagnoses Not on filedocumented in this encounter Additional Health Concerns Assessment Noted Time PHQ-9 Depression Total Score: 7 08/20/19 24 10:35 AM EDT documented as of this encounter Care Teams Refinery Operator Coking Relationship Specialty Start Date End Date Miranda Maravilla DO [address] [place] [address] PCP - General Family Medicine 09/26/19 documented as of this encounter
--- OUTSIDE RECORDS SUMMARY | 2024-06-24 12:41 | XMS_ITS | Encounter Summary ---
Author Organization [employer] Address [address] [facility] [address] [place] [address] Care Team Providers Care Siebel Solution Architect Name Role Phone Miranda Maravilla DO Primary Care Provider + [phone] Reason for Visit * Reason Comments Med Refill Encounter Details Date Type Department Care Team ([facility] st Contact Info) Description 06/21/2024 Refill [facility] [address] [place] [address] Miranda Maravilla DO [address] [place], [place] [phone] Social History Tobacco Use Types Packs/Day Years [...] 9:30 AM EDT Office Visit [facility] [address] [place] [address] Miranda Maravilla DO [address] [place] [address] documented as of this encounter Visit Diagnoses Not on filedocumented in this encounter Additional Health Concerns Assessment Noted Time PHQ-9 Depression Total Score: 7 08/20/19 24 10:35 AM EDT documented as of this encounter Care Teams Siebel Solution Architect Relationship Specialty Start Date End Date Miranda Maravilla DO [address] [place] [address] PCP - General Family Medicine 09/26/19 documented as of this encounter
--- OUTSIDE RECORDS SUMMARY | 2024-06-24 12:41 | XMS_ITS | Encounter Summary ---
Author Organization [employer] Address [address] [facility] [address] [place] [address] Care Team Providers Care Credit Resolution Representative Name Role Phone Miranda Maravilla DO Primary Care Provider + [phone] Reason for Visit * Reason Comments Med Refill Encounter Details Date Type Department Care Team ([facility] Contact Info) Description 07/26/2022 Refill [facility] [address] [place] [address] [phone] Miranda Maravilla DO [address] [place], [place] [phone] Social History Tobacco Use Types Packs/Day Years [...] Upcoming Encounters Date Type Department Care Team ([facility] Contact Info) Description 07/30/2024 9:30 AM EDT Office Visit [facility] [address] [place] [phone] Miranda Maravilla DO [address] [place] [address] documented as of this encounter Visit Diagnoses Not on filedocumented in this encounter Additional Health Concerns Assessment Noted Time PHQ-9 Depression Total Score: 0 05/09/19 23 9:16 AM EST documented as of this encounter Care Teams Credit Resolution Representative Relationship Specialty Start Date End Date Miranda Maravilla DO [address] [place] [address] PCP - General Family Medicine 09/26/19 documented as of this encounter
--- OUTSIDE RECORDS SUMMARY | 2024-06-24 12:41 | XMS_ITS | Encounter Summary ---
Author Organization [employer] Address [address] [facility] [address] [place] [address] Care Team Providers Care Chief Nuclear Medicine Technologist Name Role Phone Miranda Maravilla Primary Care Provider + [phone] Encounter Details Date Type Department Care Team (Late st Contact Info) Description 04/25/2024 Orders Only [facility] [address] [place], [place] [phone] Provider, MD Jo Ann Social History Tobacco [...] Description 07/30/2024 9:30 AM EDT Office Visit [facility] [address] [place] [address] Miranda Maravilla DO [address] [place] [address] documented as of this encounter Procedures Procedure [...] documented as of this encounter Care Teams Chief Nuclear Medicine Technologist Relationship Specialty Start Date End Date Miranda Maravilla DO [address] [place] [address] PCP - General Family Medicine 09/26/19 documented as of this encounter
--- OUTSIDE RECORDS SUMMARY | 2024-06-24 12:41 | XMS_ITS | Encounter Summary ---
Author Organization [employer] Address [address] [facility] [address] [place] [address] Care Team Providers Care Lending Activities Supervisor Name Role Phone Miranda Maravilla DO Primary Care Provider + [phone] Reason for Visit * Reason Comments Med Refill Encounter Details Date Type Department Care Team ([facility] st Contact Info) Description 06/11/2023 Refill [facility] [address] [place] [address] Miranda Maravilla DO [address] [place], [place] [phone] Pain Social History Tobacco Use Types Packs/Day [...] the past 12 months, has t he [place] gas, oil or water company threatened to [...] Description 07/30/2024 9:30 AM EDT Office Visit [facility] [address] [place] [address] Miranda Maravilla DO [address] [place] [address] documented as of this encounter Visit Diagnoses Diagnosis Pain Generalized pain documented in this encounter Additional Health Concerns Assessment Noted Time PHQ-9 Depression Total Score: 0 05/09/19 23 9:16 AM EST documented as of this encounter Care Teams Lending Activities Supervisor Relationship Specialty Start Date End Date Miranda Maravilla DO [address] [place] [address] PCP - General Family Medicine 09/26/19 documented as of this encounter
--- OUTSIDE RECORDS SUMMARY | 2024-06-24 12:41 | XMS_ITS | Encounter Summary ---
Author Organization [employer] Address [address] [facility] [address] [place] [address] Care Team Providers Care Glass Presser Name Role Phone Miranda Maravilla DO Primary Care Provider + [phone] Reason for Visit * Reason Onset Date Comments Recall Appt. 05/28/2024 Encounter Details Date Type Department Care Team ([facility] st Contact Info) Description 05/28/2024 Telephone [facility] [address] [place] [address] Miranda Maravilla DO [address] [place], [place] [phone] Recall Appt. Social History Tobacco Use Types [...] 07/30/2024 9:30 AM EDT Office Visit [facility] [address] [place] [address] Miranda Maravilla DO [address] [place] [address] documented as of this encounter Visit Diagnoses Not on filedocumented in this encounter Additional Health Concerns Assessment Noted Time PHQ-9 Depression Total Score: 7 08/20/19 24 10:35 AM EDT documented as of this encounter Care Teams Glass Presser Relationship Specialty Start Date End Date Miranda Maravilla DO [address] [place] [address] PCP - General Family Medicine 09/26/19 documented as of this encounter
--- OUTSIDE RECORDS SUMMARY | 2024-06-24 12:41 | XMS_ITS | Encounter Summary ---
Author Organization [employer] Address [address] [facility] [address] [place] [address] Care Team Providers Care Hydraulic Barker Operator Name Role Phone Miranda Maravilla DO Primary Care Provider + [phone] Reason for Visit * Reason Comments Med Refill Encounter Details Date Type Department Care Team ([facility] Contact Info) Description 07/22/2022 Refill [facility] [address] [place] [address] [phone] Miranda Maravilla DO [address] [place], [place] [phone] Social History Tobacco Use Types Packs/Day Years [...] Upcoming Encounters Date Type Department Care Team ([facility] Contact Info) Description 07/30/2024 9:30 AM EDT Office Visit [facility] [address] [place] [phone] Miranda Maravilla DO [address] [place] [address] documented as of this encounter Visit Diagnoses Not on filedocumented in this encounter Additional Health Concerns Assessment Noted Time PHQ-9 Depression Total Score: 0 05/09/19 23 9:16 AM EST documented as of this encounter Care Teams Hydraulic Barker Operator Relationship Specialty Start Date End Date Miranda Maravilla DO [address] [place] [address] PCP - General Family Medicine 09/26/19 documented as of this encounter
--- OUTSIDE RECORDS SUMMARY | 2024-06-24 12:41 | XMS_ITS | Clinical Summary ---
Author Organization [employer] Address [address] [place] [address] Care Team Providers Care Pad Machine Operator Name Role Phone Miranda Maravilla DO Primary Care Provider + [phone] Allergies No known active allergies Medications ARIPiprazole [...] FOR HEARTBURN 150 tablet 1 025 Active calcium carbonate (Calcium [...] of orbit 03/18/2022 Steatosis of liver 03/18/2022 Streptococcal sore throat 03/18/2022 Tachycardia 03/18/2022 03/23/2022 Extreme obesity with alveolar hypoventilation 04/12/19 19 03/23/2022 Encounters Date Type Department Care Team Description 06/21/2024 Refill [facility] [address] [place] [address] Miranda Maravilla DO 06/18/2024 Telephone [facility] [address] [place] [address] Missy Gardner RN Forms/questionnaires 06/13/2024 Orders Only GENERIC EXTERNAL DATA DEPARTMENT Provider, Generic External Data 06/09/2024 Refill [facility] [address] [place] [address] Miranda Maravilla DO 06/06/2024 Orders Only [facility] External Provider, [facility] 06/01/2024 Refill [facility] [address] [place] [address] Miranda Maravilla DO 05/28/2024 Telephone [facility] [address] [place] [address] Miranda Maravilla DO Recall Appt. 05/28/2024 Travel 05/17/2024 Refill [facility] [place] [address] Miranda Maravilla DO 04/29/2024 6:20 PM EST Office Visit [facility] [address] [address] Oliver Bates MD Viral URI 04/25/2024 Orders Only [facility] [address] [place] [address] ProviderJo Ann MD 04/22/2024 11:00 AM EST [facility] [address] [address] Madhu Anthony MD Moderate persistent asthma with acute exacerbation (Primary Dx); Viral URI 04/18/2024 3:00 PM EST Office Visit [address] [address] Eusebia aVldez MD Onychodystrophy (Primary Dx) 04/18/2024 Travel 04/14/2024 12:00 PM EST Office Visit [facility] [address] [place] [address] Miranda Maravilla DO Epigastric pain (Primary Dx); Fatty liver; Abnormal finding of blood chemistry, unspecified; Body mass index (BMI) 40.0-44.9, adult (CMS/HCC); Mixed hyperlipidemia; Encounter for immunization 04/14/2024 Orders Only GENERIC EXTERNAL DATA DEPARTMENT Provider, Generic External Data 04/14/2024 Travel 04/11/2024 Refill [facility] [place] [address] Miranda Maravilla DO Pain 04/08/[address] [address] Miranda Maravilla DO Nurse Triage 04/04/2024 Refill [facility] [address] [place] [address] Miranda Maravilla DO from Last 3 Months [...] 36.3 ??C (97.4 ??F) 04/29/2024 5:[address] Respiratory Rate 16 04/29/2024 5:10 PM EST [...] [facility] [address] [place] [address] Miranda Maravilla DO [address] [place] [address] Health Maintenance Due Date Last Done Comments [...] SDOH Screening 08/19/2024 08/20/2023 Mammogram 11/21/2024 11/22/2023, /09/2023, 05/03/2023, Additional history exists Zoster Vaccines (1 [...] Procedure Name Priority Date/Time Associated Diagnosis Comments GROSS AND MICROSCOPIC LEVEL 3 Routine 06/13/2024 10:58 AM EST BD DEXA AXIAL Routine 06/06/2024 10:30 AM [...] Recently Relevant to Health Maintenance Results * Gross and Microscopic Level 3 (06/13/2024 10:58 AM EST) 06/13/2024 10:5 8 AM EST 06/13/2024 12:19 PM EST Narrative [facility] - 06/16/2024 3:33 PM EDT ----- ------- Name: Brandon Lang ? Age/Sex: 49/F ? : 1975 Unit#: [id number] ?? Attend Dr: Jarrett Van MD ?Re06/13/24 ?Status: DEP SDC ? Location: HO.SSS ?Disch: ? ----- ------- SPEC : [id number] ? RECD: 06/13/24-9 ? STATUS: ??SOUT ? REQ NUM: [id number] ? BAILEY: 06/13/24-1058 ? SUBM DR: Jarrett Van MD ? ENTERED: ??06/13/247 ?SP TYPE: Surgical ? OTHR DR: Miranda Maravilla DO ? ORDERED: ??Gross Micro L3 ? Diagnosis ?? Gallbladder, cholecystectomy: ?? -Chronic cholecystitis with denuded mucosa and hyalinized fibrosis. ?? -Cholelithiasis. ?? -Benign periductal lymph node. ?Clinical History Recurrent biliary colic ?Microscopic Description Microscopic sections reviewed. ? Material Received ?? Gallbladder ? Gross Description Received in formalin labeled ?gallbladder? is an intact gallbladder measuring 7.1 x 4.2 x 3.5 cm in greatest dimension. ??The serosal surface is red-pink and smooth. ??The cystic duct has been clamped shut. ??There is a defect in the wall of the specimen measuring 2.5 x 1.5 cm from which protrudes a portion of yellow-brown cholelith. ??Opening the specimen reveals that the lumen is occupied by an oval yellow-brown cholelith measuring 5.7 x 3.4 x 2.6 cm. ??The mucosal surface is pink-white with a flattened out appearance and a small amount of adherent red-brown bile. ??The wall measures 0.2 cm in average thickness. ??([facility]) Copies To: ?? Miranda Maravilla DO ?? [facility] ?? [address] ?? [place] ?? [phone] ?? Jarrett Van MD ?? [facility] ?? [address] ?? [place] ?? [phone] ?? [email or web address] ? CONTINUED ON NEXT PAGE ----- ------- Name: Brandon Lang ? Age/Sex: 49/F ? : 1975 Unit#: [id number] ?? Attend Dr: Jarrett Van MD ?Re06/13/24 ?Status: DEP SDC ? Location: HO.SSS ?Disch: ? ----- ------- SPEC : [id number] ? RECD: 06/13/24-1218 ? STATUS: ??SOUT ? REQ NUM: [id number] ? BAILEY: 06/13/24-1057 ? SUBM DR: Jarrett Van MD ? ENTERED: ??06/13/24-5 ?SP TYPE: Surgical ? OTHR DR: Miranda Maravilla DO ? ORDERED: ??Gross Micro L3 ? ----- ------- Signed (signature on file) Felicita Lei 06/16/24 1533 ? ----- ------- ? END OF REPORT ? us Generic External Data Provider LAB CYTOLOGY CATHERINE BOOTHE Final Result [facility] [address] [place] [address] [phone] * BD DEXA Axial (06/06/2024 10:30 AM EST) Anatomical Region Laterality Modality Body Radiographic Maribel ging 06/06/2024 10:3 0 AM EST Narrative 06/09/2024 7:04 AM EST ? [facility] ? [address] ?[place] [address] ? Mammography Report ? Signed ? Patient: Rickey,Brandon Y ?MR#: [id number] ? : 1975 ?Acct:[id number] ? Age/Sex: 49 / F ?ADM Date: 06/06/24 ? Loc: HO.MAMMO ? Attending Dr: Christiana Romero MD ? Ordering Physician: Christiana Romero MD ?Results: ? Date of Service: 06/06/24 ?Follow Up: ? Procedure(s): XR DEXA axial skeleton ?? Accession Number(s): [id number] ? cc: Miranda Maravilla DO; Christiana Romero MD ? EXAMINATION: ??DXA BONE DENSITY AXIAL ? HISTORY: ??Estrogen deficiency ? TECHNIQUE: MyWerx Dual energy absorptiometry (DEXA) ?? of the [...] the [employer]'s ?? [place] for Metabolic Bone Disease, a World Health Organization (WHO) ?? Collaborating Center. ? Electronically signed by: ??Felix Corral MD ??06/09/2024 07:01 AM EST ?? RP ? Dictated By: ?Felix Corral MD ? Signed By: ?<Electronically signed by Felix Faberman, MD in OV> ?06/09/24 0701 ? DD/ 1030 ? TD/TT: 06/06/24 1050 ? Cane Feeder: ? Procedure Note Blair, Mini - 06/09/2024 [facility] [address] [place] [address] Mammography Report Signed Patient: Brandon Lang YMR#: [id number] : 1975Acct:[id number] Age/Sex: 49 / FADM Date: 06/06/24 Loc: NICOLEO Attending Dr: Christiana Romero MD Ordering Physician: Christiana Romeroesults: Date of Service: 06/06/24Follow Up: Procedure(s): XR DEXA axial skeleton Accession Number(s): [id number] cc: Miranda Maravilla DO; Christiana Romero MD EXAMINATION: DXA BONE DENSITY AXIAL HISTORY: Estrogen deficiency TECHNIQUE: MyWerx Dual energy absorptiometry (DEXA) of the lumbar [...] of the [employer]'s [place] for Metabolic Bone Disease, a World Health Organization (WHO) Collaborating Center. Electronically signed by: Felix Corral MD 06/09/2024 07:01 AM EST Dictated By: Felix Corral MD Signed By: <Electronically signed by Felix Corral MD in OV> 06/09/24 0701 DD/ 1030 TD/TT: 06/06/24 1050 Cane Feeder: [facility] External Provider IMG DXA PROCEDURES Final Result * US Abdomen Complete (05/06/2024 1:03 PM EST) Anatomical Region Laterality Modality Abdomen Ultrasound 05/06/2024 1:03 PM EST Narrative 05/06/2024 1:05 PM EST ? [facility] ?[address] ?[place] [address] ? Ultrasound Report ? Signed ? Patient: Rickey,Brandon Y ?MR#: [id number] ? : 1975 ?Acct:[id number] ? Age/Sex: 49 / F ?ADM Date: 05/06/24 ? Loc: HO.US ? Attending Dr: Miranda Maravilla DO ? Ordering Physician: Miranda Maravilla DO ?? Date of Service: 05/06/24 ?? Procedure(s): US abdomen complete ?? Accession Number(s): [id number] ? cc: Miranda Maravilla DO; Jarrett Van [...] DD/ 1303 ? TD/TT: 05/06/24 1303 ? Cane Feeder: ? Procedure Note Mini Pinto - 05/06/[address] [address] Ultrasound Report Signed Patient: RickeyStephaniea YMR#: [id number] : 1975Acct:[id number] Age/Sex: 49 / FADM Date: 05/06/24 Loc: HO.US Attending Dr: Miranda Maravilla DO Ordering Physician: Miranda Maravilla DO Date of Service: 05/06/24 Procedure(s): US abdomen complete Accession Number(s): [id number] cc: Miranda Maravilla DO; Jarrett Van MD [...] 05/06/24 1304 DD/ 1303 TD/TT: 05/06/24 1303 Cane Feeder: us Miranda Maravilla DO IMG US PROCEDURES Final Resu lt * XR Chest 2 Views (04/30/2024 11:21 AM EST) Anatomical Region Laterality Modality Chest Radiographic Maribel ging 04/30/2024 11:2 1 AM EST Narrative 04/30/2024 1:31 PM EST ?[facility] ?[address] ?[place] [address] ?XRay Report ? Signed ? Patient: Rickey,Brandon Y ?MR#: [id number] ? : 1975 ?Acct:[id number] ? Age/Sex: 49 / F ?ADM Date: /22/25 ? Loc: HO.HHCX ? Attending Dr: Oliver Bates MD ? Ordering Physician: Oliver Bates MD ?? Date of Service: 04/30/24 ?? Procedure(s): XR chest 2V ?? Accession Number(s): [id number] ? cc: Oliver Bates MD ? EXAMINATION: [...] DD/ 1121 ? TD/TT: 04/30/24 1200 ? Cane Feeder: MSM ? Procedure Note Blair, Image - 04/30/[address] [address] XRay Report Signed Patient: Brandon Lang YMR#: [id number] : 1975Acct:[id number] Age/Sex: 49 / FADM Date: 04/30/24 Loc: HO.HHCX Attending Dr: Oliver Bates MD Ordering Physician: Oliver Bates MD Date of Service: 04/30/24 Procedure(s): XR chest 2V Accession Number(s): [id number] cc: Oliver Bates MD EXAMINATION: XR CHEST [...] 04/30/24 1328 DD/ 1121 TD/TT: 04/30/24 1200 Cane Feeder: MSM Oliver Bates MD IMG XR PROCEDURES Final Result * POCT Rapid Influenza B ONTIVEROS ID NOW (04/29/2024 7:14 PM EST) Only the most recent of2 resultswithin the time period is included. Influenza B Negative Negative, Indeterminate [facility] QC Media Lot # [id number] [facility] Lot# Expiration Date [facility] Swab 04/29/2024 7:14 PM EST Oliver Bates MD POINT OF CARE TEST ENTER/EDIT OR DERABLES Final Result [facility] [address] [place] [phone] * POCT Rapid Influenza A ONTIVEROS ID NOW (04/29/2024 7:14 PM EST) Only the most recent of2 resultswithin the time period is included. Influenza A Negative Negative, Indeterminate [facility] QC Media Lot # [id number] [facility] Lot# Expiration Date [facility] Swab 04/29/2024 7:14 PM EST us Oliver Bates MD POINT OF CARE TEST ENTER/EDIT OR DERABLES Final Result [facility] [address] [place] [address] [phone] * POCT Rapid Covid-19 BinaxNOW (04/29/2024 7:14 PM EST) Only the most recent of2 resultswithin the time period is included. [facility] Rapid COVID Ag Negative QC Media Lot # [id number] Lot# Expiration Date Swab 04/29/2024 7:14 PM EST us Oliver Bates MD POINT OF CARE TEST ENTER/EDIT OR DERABLES Final Result * Respiratory Viral Panel PCR (04/29/2024 12:00 AM EST) [facility] Adenovirus PCR Not Detected Not Detect. [facility] [...] additional testing should be considered.Results reported to [facility].This test has been authorized by the FDA [...] Resp Panel NA Note See Note H [facility] Comment:All results must be correlated [...] assay is performed by Multiplexed PCR, utilizing [employer] Project Film Array. 04/29/2024 04/29/2024 Oliver Bates MD LAB BLOOD ORDERABLES Final Resul t [facility] [address] [place] [address] [phone] * Dermatopathology Report (04/18/2024 2:57 PM EST) Historical Provider LAB BLOOD ORDERABLES Barby jennifer Result * Vitamin D, 25-Hydroxy, Total, Immunoassay (04/14/2024 12:38 PM EST) Pathologist [facility] Vitamin D 25-OH Total 42.5 >30 ng/mL [facility] Comment:Health Based Referen ce Values*< 20 ng/mL Vvhmyqqdm40-27 ng/mL Insufficient> 30 ng/mL Sufficient*Sarah MENDEZ. N [...] ORDERABLES Final R esult [facility] [address] [place] [phone] * (ABNORMAL) CBC auto differential [...] LES Final Result [facility] [address] [place] [address] [phone] * Cancer antigen 27.29 (04/14/2024 12:38 [...] adjustment made inOctober 2023 by the reagent cvicu nurse. In the lowrange for this assay (<38 U/mL), this increase may begreater than 20%. Serially monitored results shouldalways be used in conjunction with other diagnosticprocedures, including clinical evaluation.THIS TEST WAS PERFORMED AT:[facility] [address] [id number] ROSE MD 04/14/2024 12:3 8 PM EST 04/14/2024 1:44 PM EST us Generic External Data Provider LAB BLOOD ORDERAB LES Final Result [facility] [address] [place] [phone] * Alpha-Fetoprotein, Tumor Marker (04/14/2024 12:38 PM EST) Alpha Fetoprotein 3.1 ng/mL [facility] Comment:Reference Range: <6. 1The use of AFP as a tumor marker in females is not recommended.This test was performed using the Bicycle Therapeuticschemiluminescent method. Values obtained fromdifferent assay methods cannot be usedinterchangeably. AFP levels, regardless ofvalue, should not be interpreted as absoluteevidence of the presence or absence of disease.THIS TEST WAS PERFORMED AT:[facility] [address] [id number] ROSE MD Blood Venous blood specimen / Unknown 04/14/2024 12:38 PM EST 04/14/2024 1:44 PM EST us Miranda Maravilla DO LAB BLOOD ORDERABLES Final R esult Performing Organization Address City/[facility]/ZIP Co de Phone Number [facility] [address] [place] [address] [phone] * (ABNORMAL) CBC (04/14/2024 12:38 PM [...] Organization Address City/[facility]/ZIP Co de Phone Number [facility] [address] [place] [address] [phone] * Lipase (04/14/2024 12:38 PM EST) Lipase 31 8 - 78 U/L [facility] Blood Venous blood specimen / Unknown 04/14/2024 12:38 PM EST 04/14/2024 1:44 PM EST [facility] BLOOD ORDERABLES Final R esult [facility] [address] [place] [phone] * Hemoglobin A1c (04/14/2024 12:38 PM EST) Hemoglobin A1c 5.3 <6.0 % [facility] Comment:Hemoglobin A1C Refer ence Range [...] asaverage glucose, using the formula of the C4I-QqkwgexBgndypt Glucose study (ADAG), Diabetes Care, Vol.31,#8,Aug. 2007 Blood Venous blood specimen / Unknown 04/14/2024 12:38 PM EST 04/14/2024 1:44 PM EST Miranda Renita DO LAB BLOOD ORDERABLES Final R esult [facility] [address] [place] [address] [phone] * Amylase (04/14/2024 12:38 PM EST) Amylase 57 28 - 100 U/L [facility] Blood Venous blood specimen / Unknown 04/14/2024 12:38 PM EST 04/14/2024 1:44 PM EST Miranda Maravilla DO LAB BLOOD ORDERABLES Final R esult Performing Organization Address [facility]/ZIP Co de Phone Number [facility] [address] [place] [phone] * Hepatic Function Panel (04/14/2024 12:38 PM EST) Bilirubin, Direct 0.1 0.0 - 0.5 mg/dL [facility] Blood Venous blood specimen / Unknown 04/14/2024 12:38 PM EST 04/14/2024 1:44 PM EST Miranda Maravilla LAB BLOOD ORDERABLES Final R esult Performing Organization Address [facility] Co de Phone Number [facility] [address] [place] [phone] * (ABNORMAL) Lipid Panel, Standard (04/14/2024 12:38 PM EST) Triglycerides 82 <150 mg/dL [facility] Comment:Desirable Triglyceri de: less than [...] 190 mg/dL HDL Cholesterol 79 >40 mg/dL [facility] Comment:Desirable HDL: great er than 40 mg/dL Note: This HDL assay may give artificially low results in patients with liver disease. Blood Venous blood specimen / Unknown 04/14/2024 12:38 PM EST 04/14/2024 1:44 PM EST us Miranda Maravilla DO LAB BLOOD ORDERABLES Final R esult [facility] [address] [place] [address] [phone] * (ABNORMAL) Comprehensive Metabolic Panel (04/14/2024 [...] Kidney Disea se: Estimated GFR < 60 mL/min/1.99h2Oebxbr Kidney Disease: Estimated GFR < 15 mL/min/1.73m2 [...] LES Final Result [facility] [address] [place] [address] [phone] * BI Mammogram Diagnostic Tomosynthesis Left (11/22/2023 1:20 PM EDT) Anatomical Region Laterality Modality Breast Left Mammography 11/22/2023 1:20 PM EDT Narrative 11/22/2023 2:00 PM EDT ? [facility] ? [address] ?[place] [address] ? Mammography Report ? Signed ? Patient: Brandon Lang ?MR#: [id number] ? : 1975 ?Acct:[id number] ? Age/Sex: 48 / F ?ADM Date: 11/22/23 ? Loc: HO.MAMMO ? Attending Dr: Christiana Romero MD ? Ordering Physician: Christiana Romero MD ?Results: 6Known ?? Biopsy Proven Malignancy ? Date of Service: 11/22/23 ?Follow Up: Surgical Consult ? Procedure(s): MM tomosynthesis diagnostic LT ?? Accession Number(s): [id number] ? cc: Miranda Maravilla DO; Christiana Romero [...] 1356 ? DD/ 1320 ? TD/TT: ? Cane Feeder: ? Procedure Note Blair, Mini - 11/22/2023 [facility] [address] [place] [address] [place] [address] Mammography Report Signed Patient: Brandon Lang YMR#: [id number] : 1975Acct:[id number] Age/Sex: 48 / FADM Date: 11/22/23 Loc: HO.MAMMO Attending Dr: Christiana Romero MD Ordering Physician: Christiana Romeroesults: 6Known Biopsy Proven Malignancy Date of Service: 11/22/23Follow Up: Surgical Consult Procedure(s): MM tomosynthesis diagnostic LT Accession Number(s): [id number] cc: Miranda Maravilla DO; Christiana Romero MD EXAMINATION: MM DIAGNOSTIC DIGITAL BREAST TOMOSYNTHESIS, [...] in OV> 11/22/23 1356 DD/ 1320 TD/TT: Cane Feeder: [facility] External Provider IMG BI PROCEDURES Edited Result - Final * (ABNORMAL) Cologuard?? colon cancer screening (03/04/2023 11:20 PM EST) Cologuard Result Positive( A) Negative 03/12/2023 10:35 AM EST [facility] (CLIA #:[id number]) Comment: POSITIVE TEST RESULT. A positive Cologuard [...] (Elliot Dye al, N Engl J Med 2014;370(14):7235-3996.) Cologuard may produce a false negative or false positive result (no colorectal cancer or precancerous polyp present at colonoscopy follow up). A negative Cologuard test result does not guarantee the absence of CRC or advanced adenoma (pre-cancer). The current Cologuard screening interval is every 3 years. ([place] Cancer Society and U.S. Multi-Society Task Force). Cologuard performance data in a 10,000 patient pivotal study using colonoscopy as the reference method can be accessed at the following location: www.Muecs.3D Forms/results. Additional description of the Cologuard test process, warnings and precautions can be found at www.NipendoogUbiquity Corporationrd.com. Stool specimen (specimen) 03/04/2023 11:20 PM EST 03/06/2023 5:06 PM EST Miranda Maravilla DO LAB MOLECULAR DIAGNOSTICS OR DERABLES Final Result [facility] (CLIA #:[id number]) [address] [place] [address], * HEPATITIS C AB W/REFL TO HCV RNA, QN, PCR (10/24/2019 9:16 AM EDT) HEPATITIS C ANTIBODY NON-REACT QUIANA NON-REACT QUIANA [facility] INDEX 0.02 <1.00 [facility] Comment: ?? HCV antibody was non-reactive. There is no laboratory ?? evidence of HCV infection. ?? In most cases, no further action is required. However, if recent HCV exposure is suspected, a test for HCV RNA (test code 25992) is suggested. ?? For additional information please refer to http://Vision Technologies/faq/PWK82t3 (This link is being provided for informational/ educational purposes only.) ?? HEPATITIS C ANTIBODY NON-REACT QUIANA NON-REACT QUIANA [facility] INDEX 0.02 <1.00 [facility] Comment: ?? HCV antibody was non-reactive. There is no laboratory ?? evidence of HCV infection. ?? In most cases, no further action is required. However, if recent HCV exposure is suspected, a test for HCV RNA (test code 20382) is suggested. ?? For additional information please refer to http://[employer]/faq/BDV52u2 (This link is being provided for informational/ educational purposes only.) ?? HEPATITIS C ANTIBODY NON-REACT QUIANA NON-REACT QUIANA [facility] INDEX 0.02 <1.00 [facility] Comment: ?? HCV antibody was non-reactive. There is no laboratory ?? evidence of HCV infection. ?? In most cases, no further action is required. However, if recent HCV exposure is suspected, a test for HCV RNA (test code 65787) is suggested. ?? For additional information please refer to http://[employer]/faq/HLZ49j5 (This link is being provided for informational/ educational purposes only.) ?? 10/24/2019 9:16 AM EDT Miranda Maravilla DO HISTORICAL/NON ORDERABLE LAB S Final Result [facility] [address] * HIV 1/2 ANTIGEN/ANTIBODY,FOURTH GENERATION W/RFL (10/24/2019 9:16 AM EDT) [facility] HIV-1/2 ANTIGEN AND ANTIBODIES, 4TH GENERATION W/ [...] ? For additional information please refer to http://SimPrints.Just Eat/faq/VSD432 (This link is being provided for informational/ [...] ? For additional information please refer to http://SimPrint[employer].Just Eat/faq/WCI931 (This link is being provided for informational/ [...] ? For additional information please refer to http://education.Just Eat/faq/KAH359 (This link is being provided for informational/ educational purposes only.) ? The performance of this assay has not been clinically validated in patients less than 2 years old. ?? 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
--- OUTSIDE RECORDS SUMMARY | 2024-06-24 12:41 | XMS_ITS | Encounter Summary ---
Author Organization [employer] Address 75 [facility] 7t [place] [address] Care Team Providers Care Physical Therapy Director Name Role Phone Miranda Maravilla DO Primary Care Provider + [phone] Encounter Details Date Type Department Care Team [...] Description 07/30/2024 9:30 AM EDT Office Visit [facility] [address] [place] [address] Miranda Maravilla DO [address] [place] [address] documented as of this encounter Visit Diagnoses Not on filedocumented in this encounter Additional Health Concerns Assessment Noted Time PHQ-9 Depression Total Score: 7 08/20/19 24 10:35 AM EDT documented as of this encounter Care Teams Physical Therapy Director Relationship Specialty Start Date End Date Miranda Maravilla DO [address] [place] [address] PCP - General Family Medicine 09/26/19 documented as of this encounter
--- OUTSIDE RECORDS SUMMARY | 2024-06-24 12:41 | XMS_ITS | Encounter Summary ---
Author Organization [employer] Address 75 [facility] 7t [place] [address] Care Team Providers Care Block Bolter Mule Operator Name Role Phone Miranda Maravilla DO Primary Care Provider + [phone] Encounter Details Date Type Department Care Team (Late st Contact Info) Description 06/13/2024 Orders Only GENERIC EXTERNAL DATA DEPARTMENT [...] Description 07/30/2024 9:30 AM EDT Office Visit [facility] [address] [place], [place] [phone] Miranda Maravilla, DO 230 [place], [place] [phone] documented as of this encounter Procedures Procedure Name Priority Date/Time Associated Diagnosis Comments GROSS AND MICROSCOPIC LEVEL 3 Routine 06/13/2024 10:58 AM EST documented in this encounter Results * Gross and Microscopic Level 3 (06/13/2024 10:58 AM EST) 06/13/2024 10:5 8 AM EST 06/13/2024 12:19 PM EST [facility] LABS - 06/16/2024 3:33 PM EDT ----- ------- Name: Brandon Lang ? Age/Sex: 49/F ? : 1975 Unit#: [id number] ?? Attend Dr: Jarrett Van MD ?Re06/13/24 ?Status: DEP SDC ? Location: HO.SSS ?Disch: ? ----- ------- SPEC : [id number] ? RECD: 06/13/24 ? STATUS: ??SOUT ? REQ NUM: [id number] ? BAILEY: 06/13/243 ? SUBM DR: Jarrett Van MD ? ENTERED: ??06/13/249 ?SP TYPE: Surgical ? OTHR DR: Miranda [...] wall measures 0.2 cm in average thickness. ??([facility]) Copies To: ?? Miranda Maravilla DO ?? [facility] ?? [address] ?? [place] [address] ?? [phone] ?? Jarrett Van MD ?? [facility] ?? [address] ?? [place] [address] ?? [phone] ?? [email or web address] ? CONTINUED ON NEXT PAGE ----- ------- Name: Brandon Lang ? Age/Sex: 49/F ? : 1975 Unit#: [id number] ?? Attend Dr: Jarrett Van MD ?Re06/13/24 ?Status: [place]P [facility] ? Location: HO.SSS ?Disch: ? ----- ------- SPEC : [id number] ? RECD: 06/13/24-1218 ? STATUS: ??SOUT ? REQ NUM: [id number] ? BAILEY: 06/13/24-1057 ? SUBM DR: Jarrett Van MD ? ENTERED: ??06/13/24-5 ?SP TYPE: Surgical ? OTHR : Miranda Maravilla DO ? ORDERED: ??Gross Micro L3 ? ----- ------- Signed (signature on file) Felicita Lei 06/16/24 1533 ? ----- ------- ? END OF REPORT ? us Generic External Data Provider LAB CYTOLOGY ORDE [facility] Final Result [facility] LABS [address] [place] [address] [phone] documented in this encounter Visit Diagnoses Not on filedocumented in this encounter Additional Health Concerns Assessment Noted Time PHQ-9 Depression Total Score: 7 08/20/19 24 10:35 AM EDT documented as of this encounter Care Teams Block Bolter Mule Operator Relationship Specialty Start Date End Date Miranda Maravilla DO [address] [place] [address] PCP - General Family Medicine 09/26/19 documented as of this encounter
--- OUTSIDE RECORDS SUMMARY | 2024-06-24 12:41 | XMS_ITS | Encounter Summary ---
Author Organization [employer] Address [address] [facility] 7[place] [address] Care Team Providers Care Quality Control Tester Name Role Phone Miranda Maravilla DO Primary Care Provider + [phone] Reason for Visit * Reason Comments Med Refill Encounter Details Date Type Department Care Team ([facility] Contact Info) Description 05/18/2022 Refill [facility] MEDICINE [address] [place] [address] [phone] Miranda Maravilla DO [address] [place], [place] [phone] Social History Tobacco Use Types Packs/Day Years [...] Upcoming Encounters Date Type Department Care Team ([facility] Contact Info) Description 07/30/2024 9:30 AM EDT Office Visit [facility] [address] [place] [phone] Miranda Maravilla DO [address] [place] [address] documented as of this encounter Visit Diagnoses Not on filedocumented in this encounter Additional Health Concerns Assessment Noted Time PHQ-9 Depression Total Score: 0 05/09/19 23 9:16 AM EST documented as of this encounter Care Teams Quality Control Tester Relationship Specialty Start Date End Date Miranda Maravilla DO [address] [place] [address] PCP - General Family Medicine 09/26/19 documented as of this encounter
== END 2024-06-24 10:55 | disposition home or self-care (01) ==
LOC: HO.HGS 10:42
PROVIDERS: PCP Family Medicine; Visit Provider Surgery
DX: Z90.49 Acquired absence of other specified parts of digestive tract (principal); Z98.890 Other specified postprocedural states
CPT/HCPCS: 99024

== ENCOUNTER → 2024-06-24 10:41 | Outpatient (BNVA) | payer MEDICARE, MEDICAID, SELFPAY | PROVIDERS: PCP Family Medicine; Visit Provider Surgery | DX: J45.909 Unspecified asthma, uncomplicated (principal); G47.33 Obstructive sleep apnea (adult) (pediatric); R06.00 Dyspnea, unspecified; Z90.49 Acquired absence of other specified parts of digestive tract; Z98.890 Other specified postprocedural states | CPT/HCPCS: 99212 ==

== ENCOUNTER 2024-06-24 13:22 | Outpatient (AMB) | payer MEDICARE, MEDICAID, SELFPAY ==
[2024-06-24 13:36] VITALS: BP 104/62; PULSE 100; O2SAT 94; BMI 41.9
--- NOTE | 2024-06-24 13:36 | MHC.OFFVIS ---
Vital Signs 06/24/24 13:36 Height 5 ft 2 in Weight 229 lb BMI 41.9 BP 104/62 Blood Pressure Location Rt brachial Position Sitting Pulse 100 Pulse Source Doppler Pulse Oximetry (%) 94 Oxygen Delivery Method Room Air Intake Visit Reasons: Asthma Telecom Specialist Required: Yes Telecom Specialist Name: Miranda Samaniego Carol Allergies No Known Allergies [No Known Allergies*] Allergy (Unknown, Verified 06/24/24 13:42) HPI HPI Asthma: Details: 48-year-old lady with underlying intellectual disability, obesity, now followed for obstructive sleep apnea on CPAP, asthma, and chronic hypoxic respiratory failure on 2 L of supplemental oxygen. Patient has completed treatment for breast cancer including excision and chemotherapy. She denies any recent exacerbations. Patient has been using Advair, DuoNebs, Brovana nebs, and albuterol MDI/nebs with good control of her underlying symptoms. Her lower extremity edema is controlled on current regimen of torsemide. [facility] Medical History Menopause Breast mass, left Hospital discharge follow-up Right leg swelling Pulmonary hypertension Acute on chronic respiratory failure with hypoxia and hypercapnia Asthma with exacerbation Pneumonia Status post repair of fracture of orbit COVID Cough Chest pain Sleep apnea Intellectual disability Morbid obesity Intellectual disability Colon cancer screening GEORGE (obstructive sleep apnea) Oxygen desaturation during sleep Asthma Surgical History History of lumpectomy of left breast (12/07/23) Encounter for insertion of tunneled central venous catheter (CVC) with port Cancer of left breast, stage 3 Status post spinal surgery (~1994) History of open reduction and internal fixation (ORIF) procedure History of esophagogastroduodenoscopy (EGD) Family History Mother Diabetes Hypertension Father Hypertension Maternal Uncle Throat cancer Social History Household Members: Spouse and Children Household Members Other:: mother Housing: House Are you a primary direct care worker to a significant other at home: No Do you presently have visiting nurse or other home services: Yes (BUSINESS ANALYSIS SPECIALIST) Alcohol intake: never Comment: counts correct Patient Tobacco Use Status: Never used Tobacco e-Cigarette/Vaping Use: Never Used Advance Directives Date on File: 08/14/18 service: No Current occupational status: disabled Review of Systems Const Denies daytime sleepiness, Denies excessive sweating, Denies fatigue, Denies fever(s), Denies lethargy, Denies malaise, Denies night sweats, Denies snoring and Denies weight loss Eyes Denies blurry vision and Denies itchy eyes ENT Denies nasal congestion, Denies post nasal drip, Denies sinus pain, Denies sinus pressure and Denies other ( Thrush) Card Denies chest pain, Denies pedal edema, Denies dyspnea, Denies orthopnea and Denies paroxysmal nocturnal dyspnea Resp Denies cough, Denies hemoptysis, Denies excessive phlegm production, Denies dyspnea, Denies snoring and Denies wheezing GI Denies abdominal pain and Denies heartburn Musc Denies myalgias, Denies arthralgias and Denies joint swelling Skin/Breast Denies rash Neuro Denies memory loss and Denies seizure-like activity Psych Denies abnormal sleep pattern, Denies anxiety and Denies memory loss Endo Denies excessive sweating, Denies fatigue and Denies heat intolerance Miller/Lymph Denies easy bruising Aller/Immun Denies itchy eyes, Denies seasonal rhinorrhea and Denies wheezing Physical Exam Vital Signs: Last Vital Signs Pulse 100 06/24/24 13:36 BP 104/62 06/24/24 13:36 Pulse Ox 94 06/24/24 13:36 Oxygen Delivery Method Room Air 06/24/24 13:36 BMI result Body Mass Index 41.9 Const General: no acute distress and alert Nutritional Appearance: obese Orientation/consciousness: Other orientation findings ( oriented) HEENT Head: Yes atraumatic Eyes General: appearance normal, both eyes and all related structures Sclerae: sclerae normal EOM: EOMs intact bilaterally Neck Neck: Yes supple Lymphatic: no lymphadenopathy noted Resp Effort & Inspection: normal respiratory effort and no use of accessory muscles Auscultation: clear to auscultation bilaterally Cardio Rate: regular rate Rhythm: regular rhythm Heart sounds: no gallops, no murmurs and no rubs Skin General skin exam: other ( warm) Extrem General: No clubbing, No cyanosis and No edema Assessment & Plan Assessment & Plan (1) Asthma: Code(s): J45.909 - Unspecified asthma, uncomplicated Category: Medical Plan: Well controlled on current regimen of Breo, duo nebs, Brovana, and albuterol MDI. Continue current regimen. (2) GEORGE (obstructive sleep apnea): Code(s): G47.33 - Obstructive sleep apnea (adult) (pediatric) Category: Medical Plan: Well controlled on CPAP therapy. Continue CPAP therapy. (3) Dyspnea on exertion: Code(s): R06.00 - Dyspnea, unspecified Category: Medical Plan: Well controlled on current regimen of torsemide 20 mg b.i.d.. Continue current regimen. Coding Level of Care Code Est Pt Level 4 (45814) Complex EM visit Add On G2211 Diagnoses Asthma J45.909 GEORGE (obstructive sleep apnea) G47.33 Dyspnea on exertion R06.00
--- OUTSIDE RECORDS SUMMARY | 2024-06-24 15:43 | XMS_ITS | Encounter Summary ---
Author Organization [email or web address] Address [address] [facility] 7[place] [address] Care Team Providers Care Balance Screwhead Polisher Name Role Phone Miranda Maravilla DO Primary Care Provider + [phone] Reason for Visit * Reason Comments Med Refill Encounter Details Date Type Department Care Team ([facility] st Contact Info) Description 06/09/2024 Refill [facility]ICINE [address] [place] [address] Miranda Maravilla DO 230 [place], [place] [phone] Social History Tobacco Use Types Packs/Day Years [...] 07/30/2024 9:30 AM EDT Office Visit [facility]ICINE [address] [place] [address] Miranda Maravilla DO [address] [place] [address] documented as of this encounter Visit Diagnoses Not on filedocumented in this encounter Additional Health Concerns Assessment Noted Time PHQ-9 Depression Total Score: 7 08/20/19 24 10:35 AM EDT documented as of this encounter Care Teams Balance Screwhead Polisher Relationship Specialty Start Date End Date Miranda Maravilla DO [address] [place] [address] PCP - General Family Medicine 09/26/19 documented as of this encounter
--- OUTSIDE RECORDS SUMMARY | 2024-06-24 15:43 | XMS_ITS | Encounter Summary ---
Author Organization [employer] Address [address] [facility] [address] [address] Care Team Providers Care Glass Wool Blanket Machine Feeder Name Role Phone Miranda Maravilla DO Primary Care Provider + [phone] Reason for Visit * Reason Onset Date Comments Forms/questionnaires 06/18/2024 Encounter Details Date Type Department Care Team ([facility] Contact Info) Description 06/18/2024 Telephone [facility] MEDICINE [address] [place] [address] Missy Gardner, RN [address] [place] [address] Forms/questionnaires Social History Tobacco Use Types Packs/Day [...] 9:23 AM EDT Order form received from [facility] to be able to administer pt. Standing orders of APAP and Tums. Signed by PCP, faxed back, confirmation received documented in this encounter Plan of Treatment Upcoming Encounters Date Type Department Care Team (Late st Contact Info) Description 07/30/2024 9:30 AM EDT Office Visit [facility] MEDICINE [address] [place] [address] Miranda Maravilla DO [address] [place] [address] documented as of this encounter Visit Diagnoses Not on filedocumented in this encounter Additional Health Concerns Assessment Noted Time PHQ-9 Depression Total Score: 7 08/20/19 24 10:35 AM EDT documented as of this encounter Care Teams Glass Wool Blanket Machine Feeder Relationship Specialty Start Date End Date Miranda Maravilla DO [address] [place] [address] PCP - General Family Medicine 09/26/19 documented as of this encounter
--- OUTSIDE RECORDS SUMMARY | 2024-06-24 15:43 | XMS_ITS | Encounter Summary ---
Author Organization [employer] Address [address] [facility] 7t [place] [address] Care Team Providers Care Software Configuration Specialist Name Role Phone Miranda Maravilla Primary Care Provider + [phone] Encounter Details Date Type Department Care Team (Late st Contact Info) Description 04/25/2024 Orders Only [facility] [address] [place], [place] [phone] Provider, MD Jo Ann Social History Tobacco [...] Description 07/30/2024 9:30 AM EDT Office Visit [facility] MEDICINE 230 [place] [address] Miranda Maravilla DO [address] [place] [address] documented as of this encounter Procedures Procedure [...] documented as of this encounter Care Teams Software Configuration Specialist Relationship Specialty Start Date End Date Miranda Maravilla DO [address] [place] [address] PCP - General Family Medicine 09/26/19 documented as of this encounter
--- OUTSIDE RECORDS SUMMARY | 2024-06-24 15:43 | XMS_ITS | Encounter Summary ---
Author Organization [employer] Address [address] [facility] 7t [place] [address] Care Team Providers Care Teaching Music Lessons Name Role Phone Miranda Maravilla DO Primary Care Provider + [phone] Encounter Details Date Type Department Care Team [...] Description 07/30/2024 9:30 AM EDT Office Visit [facility] MEDICINE [address] [place], [place] [phone] Miranda Maravilla, DO [address] [place], [place] [phone] documented as of this encounter Procedures Procedure Name Priority Date/Time Associated Diagnosis Comments GROSS AND MICROSCOPIC LEVEL 3 Routine 06/13/2024 10:58 AM EST documented in this encounter Results * Gross and Microscopic Level 3 (06/13/2024 10:58 AM EST) 06/13/2024 10:5 8 AM EST 06/13/2024 12:19 PM EST [facility] LABS - 06/16/2024 3:33 PM EDT ----- ------- Name: Brandon Lang ? Age/Sex: 49/F ? : 1975 Unit#: [id number] ?? Attend Dr: Jarrett Van MD ?Re06/13/24 ?Status: DEP SDC ? Location: HO.SSS ?Disch: ? ----- ------- SPEC : [id number] ? RECD: 06/13/24 ? STATUS: ??SOUT ? REQ NUM: [id number] ? BAILEY: 06/13/242 ? SUBM DR: Jarrett Van MD ? [...] Copies To: ?? Miranda Maravilla DO ?? [facility] ?? [address] ?? [place] [address] ?? [phone] ?? Jarrett Van MD ?? [facility] General Surgeons ?? [address] ?? [place] [address] ?? [phone] ?? [email or web address] ? CONTINUED ON NEXT PAGE ----- ------- Name: Brandon Lang ? Age/Sex: 49/F ? : 1975 Unit#: [id number] ?? Attend Dr: Jarrett Van MD ?Re06/13/24 ?Status: DEP [facility] ? Location: HO.SSS ?Disch: ? ----- ------- SPEC : [id number] ? RECD: 06/13/24-1218 ? STATUS: ??SOUT ? REQ NUM: [id number] ? BAILEY: 06/13/24-1057 ? SUBM DR: Jarrett Van MD ? ENTERED: ??06/13/24-5 ?SP TYPE: Surgical ? OTHR : Miranda Maravilla DO ? ORDERED: ??Gross Micro L3 ? ----- ------- Signed (signature on file) Felicita Lei 06/16/24 1533 ? ----- ------- ? END OF REPORT ? us Generic External Data Provider LAB CYTOLOGY ORDE [facility] Final Result [facility]S [address] [place] [address] [phone] documented in this encounter Visit Diagnoses Not on filedocumented in this encounter Additional Health Concerns Assessment Noted Time PHQ-9 Depression Total Score: 7 08/20/19 24 10:35 AM EDT documented as of this encounter Care Teams Teaching Music Lessons Relationship Specialty Start Date End Date Miranda Maravilla DO [address] [place] [address] PCP - General Family Medicine 09/26/19 documented as of this encounter
--- OUTSIDE RECORDS SUMMARY | 2024-06-24 15:43 | XMS_ITS | Encounter Summary ---
Author Organization [employer] Address [address] [facility] [address] [address] Care Team Providers Care Medical Assistant Instructor Name Role Phone Miranda Maravilal DO Primary Care Provider + [phone] Reason for Visit * Reason Comments Med Refill Encounter Details Date Type Department Care Team ([facility] st Contact Info) Description 06/01/2024 Refill [facility] MEDICINE [address] [place] [address] Miranda Maravilla DO [address] [place], [place] [phone] Social History Tobacco Use Types Packs/Day Years [...] Description 07/30/2024 9:30 AM EDT Office Visit [facility] MEDICINE [address] [place] [address] Miranda Maravilla DO [address] [place] [address] documented as of this encounter Visit Diagnoses Not on filedocumented in this encounter Additional Health Concerns Assessment Noted Time PHQ-9 Depression Total Score: 7 08/20/19 24 10:35 AM EDT documented as of this encounter Care Teams Medical Assistant Instructor Relationship Specialty Start Date End Date Miranda Maravilla DO [address] [place] [address] PCP - General Family Medicine 09/26/19 documented as of this encounter
--- OUTSIDE RECORDS SUMMARY | 2024-06-24 15:43 | XMS_ITS | Encounter Summary ---
Author Organization [employer] Address 75 [facility] [address] [address] Care Team Providers Care Professor Of Musicology Name Role Phone Miranda Maravilla DO Primary Care Provider + [phone] Reason for Visit * Reason Comments Med Refill Encounter Details Date Type Department Care Team ([facility] Contact Info) Description 05/18/2022 Refill [facility] MEDICINE [address] [place] [phone] Miranda Maravilla DO [address] [place], [place] [phone] Social History Tobacco Use Types Packs/Day Years [...] Upcoming Encounters Date Type Department Care Team ([facility] Contact Info) Description 07/30/2024 9:30 AM EDT Office Visit [facility] MEDICINE [address] [place] [address] Miranda Maravilla DO [address] [place] [address] documented as of this encounter Visit Diagnoses Not on filedocumented in this encounter Additional Health Concerns Assessment Noted Time PHQ-9 Depression Total Score: 0 05/09/19 23 9:16 AM EST documented as of this encounter Care Teams Professor Of Musicology Relationship Specialty Start Date End Date Miranda Maravilla DO [address] [place] [address] PCP - General Family Medicine 09/26/19 documented as of this encounter
--- OUTSIDE RECORDS SUMMARY | 2024-06-24 15:43 | XMS_ITS | Encounter Summary ---
Author Organization [employer] Address 75 [facility] [address] [place] [address] Care Team Providers Care Field Advisor Name Role Phone Miranda Maravilla DO Primary Care Provider + [phone] Reason for Visit * Reason Comments Med Refill Encounter Details Date Type Department Care Team ([facility] Contact Info) Description 07/22/2022 Refill [facility] MEDICINE [address] [place] [phone] Miranda Maravilla DO [address] [place], [place] [phone] Social History Tobacco Use Types Packs/Day Years [...] Upcoming Encounters Date Type Department Care Team ([facility] Contact Info) Description 07/30/2024 9:30 AM EDT Office Visit [facility] MEDICINE [address] [place] [phone] Miranda Maravilla DO [address] [place] [address] documented as of this encounter Visit Diagnoses Not on filedocumented in this encounter Additional Health Concerns Assessment Noted Time PHQ-9 Depression Total Score: 0 05/09/19 23 9:16 AM EST documented as of this encounter Care Teams Field Advisor Relationship Specialty Start Date End Date Miranda Maravilla DO [address] [place] [address] PCP - General Family Medicine 09/26/19 documented as of this encounter
--- OUTSIDE RECORDS SUMMARY | 2024-06-24 15:43 | XMS_ITS | Encounter Summary ---
Author Organization [employer] Address 75 [facility] [address] [address] Care Team Providers Care Exhaust Machine Operator Name Role Phone Miranda Maravilla DO Primary Care Provider + [phone] Reason for Visit * Reason Comments Med Refill Encounter Details Date Type Department Care Team ([facility] st Contact Info) Description 06/21/2024 Refill [facility] MEDICINE [address] [place] [address] Miranda Maravilla DO [address] [place], [place] [phone] Social History Tobacco Use Types Packs/Day Years [...] Description 07/30/2024 9:30 AM EDT Office Visit [facility] MEDICINE [address] [place] [address] Miranda Maravilla DO [address] [place] [address] documented as of this encounter Visit Diagnoses Not on filedocumented in this encounter Additional Health Concerns Assessment Noted Time PHQ-9 Depression Total Score: 7 08/20/19 24 10:35 AM EDT documented as of this encounter Care Teams Exhaust Machine Operator Relationship Specialty Start Date End Date Miranda Maravilla DO [address] [place] [address] PCP - General Family Medicine 09/26/19 documented as of this encounter
--- OUTSIDE RECORDS SUMMARY | 2024-06-24 15:43 | XMS_ITS | Encounter Summary ---
Author Organization [employer] Address [address] [facility] [address] [place] [address] Care Team Providers Care Chief Deputy Coroner Name Role Phone Miranda Maravilla DO Primary Care Provider + [phone] Reason for Visit * Reason Comments Med Refill Encounter Details Date Type Department Care Team ([facility] st Contact Info) Description 06/24/2024 Refill [facility] MEDICINE [address] [place] [address] Miranda Maravilla DO [address] [place], [place] [phone] Pain Social History Tobacco Use Types Packs/Day [...] AM EDT Office Visit [facility] MEDICINE [address] [place] [address] Miranda Maravilla DO [address] [place] [address] documented as of this encounter Visit Diagnoses Diagnosis Pain Generalized pain documented in this encounter Additional Health Concerns Assessment Noted Time PHQ-9 Depression Total Score: 7 08/20/19 24 10:35 AM EDT documented as of this encounter Care Teams Chief Deputy Coroner Relationship Specialty Start Date End Date Miranda Maravilla DO [address] [place] [address] PCP - General Family Medicine 09/26/19 documented as of this encounter
--- OUTSIDE RECORDS SUMMARY | 2024-06-24 15:43 | XMS_ITS | Encounter Summary ---
Author Organization [employer] Address [address] [facility] 7t [place] [address] Care Team Providers Care Rolling Machine Operator Name Role Phone Miranda Maravilla DO Primary Care Provider + [phone] Encounter Details Date Type Department Care Team [...] Description 07/30/2024 9:30 AM EDT Office Visit [facility] [address] [place] [address] Miranda Maravilla DO [address] [place] [address] documented as of this encounter Visit Diagnoses Not on filedocumented in this encounter Additional Health Concerns Assessment Noted Time PHQ-9 Depression Total Score: 7 08/20/19 24 10:35 AM EDT documented as of this encounter Care Teams Rolling Machine Operator Relationship Specialty Start Date End Date Miranda Maravilla DO [address] [place] [address] PCP - General Family Medicine 09/26/19 documented as of this encounter
--- OUTSIDE RECORDS SUMMARY | 2024-06-24 15:43 | XMS_ITS | Encounter Summary ---
Author Organization [employer] Address [address] [facility] [address] [place] [address] Care Team Providers Care Hide Splitter Name Role Phone Miranda Maravilla DO Primary Care Provider + [phone] Reason for Visit * Reason Comments Med Refill Encounter Details Date Type Department Care Team ([facility] Contact Info) Description 07/26/2022 Refill [facility] [address] [place] [address] [phone] Miranda Maravilla DO [address] [place], [place] [phone] Social History Tobacco Use Types Packs/Day Years [...] Upcoming Encounters Date Type Department Care Team ([facility] Contact Info) Description 07/30/2024 9:30 AM EDT Office Visit [facility] [address] [place] [phone] Miranda Maravilla DO [address] [place] [address] documented as of this encounter Visit Diagnoses Not on filedocumented in this encounter Additional Health Concerns Assessment Noted Time PHQ-9 Depression Total Score: 0 05/09/19 23 9:16 AM EST documented as of this encounter Care Teams Hide Splitter Relationship Specialty Start Date End Date Miranda Maravilla DO [address] [place] [address] PCP - General Family Medicine 09/26/19 documented as of this encounter
--- OUTSIDE RECORDS SUMMARY | 2024-06-24 15:43 | XMS_ITS | Encounter Summary ---
Author Organization [employer] Address [address] [facility] 7t [place] [address] Care Team Providers Care Social Service Worker Name Role Phone Miranda Maravilla DO Primary Care Provider + [phone] Reason for Visit * Reason Comments Med Refill Encounter Details Date Type Department Care Team ([facility] st Contact Info) Description 06/11/2023 Refill [facility] [address] [place] [address] Miranda Maravilla DO [address] [place], [place] [phone] Pain Social History Tobacco Use Types Packs/Day [...] the past 12 months, has t he [employer] gas, oil or water company threatened to [...] Description 07/30/2024 9:30 AM EDT Office Visit [facility] [address] [place] [address] Miranda Maravilla DO [address] [place] [address] documented as of this encounter Visit Diagnoses Diagnosis Pain Generalized pain documented in this encounter Additional Health Concerns Assessment Noted Time PHQ-9 Depression Total Score: 0 05/09/19 23 9:16 AM EST documented as of this encounter Care Teams Social Service Worker Relationship Specialty Start Date End Date Miranda Maravilla DO [address] [place] [address] PCP - General Family Medicine 09/26/19 documented as of this encounter
--- OUTSIDE RECORDS SUMMARY | 2024-06-24 15:43 | XMS_ITS | Encounter Summary ---
Author Organization [employer] Address [address] [facility] [address] [place] [address] Care Team Providers Care Hairspring Setter Name Role Phone Miranda Maravilla DO Primary Care Provider [phone] Encounter Details Date Type Department Care Team ([facility] Contact Info) Description 04/05/2022 Telephone [facility] MED[facility]INE [address] [place] [phone] Miranda Maravilla DO [address] [place], [place] [phone] Social History Tobacco Use Types Packs/Day Years [...] Upcoming Encounters Date Type Department Care Team ([facility] Contact Info) Description 07/30/2024 9:30 AM EDT Office Visit [facility] [address] [place] [phone] Miranda Maravilla DO [address] [place] [address] documented as of this encounter Visit Diagnoses Not on filedocumented in this encounter Additional Health Concerns Assessment Noted Time PHQ-9 Depression Total Score: 0 03/28/20 22 10:45 AM EST documented as of this encounter Care Teams Hairspring Setter Relationship Specialty Start Date End Date Miranda Maravilla DO [address] [place] [address] PCP - General Family Medicine 09/26/19 documented as of this encounter
--- OUTSIDE RECORDS SUMMARY | 2024-06-24 15:43 | XMS_ITS | Encounter Summary ---
Author Organization [employer] Address [address] [facility] 7[address] [place] [address] Care Team Providers Care Filler Blender Name Role Phone Miranda Maravilla DO Primary Care Provider + [phone] Encounter Details Date Type Department Care Team ([facility] Contact Info) Description 06/06/2024 Orders Only [facility] External Provider, [facility] Social History Tobacco Use Types Packs/Day [...] 07/30/2024 9:30 AM EDT Office Visit [facility] [address] [facility] [place] [address] Miranda Maravilla, DO [address] [facility] [place] [address] documented as of this encounter Procedures Procedure Name Priority Date/Time Associated Diagnosis Comments BD DEXA AXIAL Routine 06/06/2024 10:30 AM EST documented in this encounter Results * BD DEXA Axial (06/06/2024 10:30 AM EST) Anatomical Region Laterality Modality Body Radiographic Maribel ging 06/06/2024 10:3 0 AM EST Narrative 06/09/2024 7:04 AM EST ? [facility] [place] ? [address] ?[place] [address] ? Mammography Report ? Signed ? Patient: Brandon Lang Y ?MR#: [id number] ? : 1975 ?Acct:[id number] ? Age/Sex: 49 / F ?ADM Date: 02/28/25 ? Loc: HO.MAMMO ? Attending Dr: Christiana Romero MD ? Ordering Physician: Christiana Romero MD ?Results: ? Date of Service: 06/06/24 ?Follow Up: ? Procedure(s): XR DEXA axial skeleton ?? Accession Number(s): [id number] ? cc: Miranda Maravilla DO; Christiana Romero MD ? EXAMINATION: ??DXA BONE DENSITY AXIAL ? HISTORY: ??Estrogen deficiency ? TECHNIQUE: [email or web address] Dual energy absorptiometry (DEXA) ?? of the [...] [facility] [employer] ?? [place] [facility] Metabolic Bone Disease, a World Health Organization (WHO) ?? Collaborating Center. ? Electronically signed by: ??Felix Corral MD ??06/09/2024 07:01 AM EST ?? RP ? Dictated By: ?Felix Corral MD ? Signed By: ?<Electronically signed by Felix Corral MD in OV> ?06/09/24 0701 ? DD/ 1030 ? TD/TT: 06/06/24 1050 ? General Maintenance Helper: ? Procedure Note Donotuseinterpreter, Image - [facility]/09/20[facility] [address] [place], [place] [address] Mammography Report Signed Patient: Brandon Lang YMR#: [id number] : 1975Acct:[id number] Age/Sex: 49 / FADM Date: 06/06/24 Loc: HO.MAMMO Attending Dr: Christiana Romero MD Ordering Physician: Christiana Romeroesults: Date of Service: 06/06/24Follow Up: Procedure(s): XR DEXA axial skeleton Accession Number(s): [id number] cc: Miranda Maravilla DO; Christiana Romero MD EXAMINATION: DXA BONE DENSITY AXIAL HISTORY: Estrogen deficiency TECHNIQUE: [email or web address] Dual energy absorptiometry (DEXA) of the lumbar [...] of the [employer] [place] [facility] Disease, a World Health Organization (WHO) Collaborating Center. Electronically signed by: Felix Corral MD 06/09/2024 07:01 AM EST Dictated By: Felix Corral MD Signed By: <Electronically signed by Felix Corral MD in OV> 06/09/24 0701 DD/ 1030 TD/TT: 06/06/24 1050 General Maintenance Helper: [facility] External Provider IMG DXA PROCEDURES Final Result documented in this encounter Visit Diagnoses Not on filedocumented in this encounter Additional Health Concerns Assessment Noted Time PHQ-9 Depression Total Score: 7 08/20/19 24 10:35 AM EDT documented as of this encounter Care Teams Filler Blender Relationship Specialty Start Date End Date Miranda Maravilla DO [address] [place] [address] PCP - General Family Medicine 09/26/19 documented as of this encounter
--- OUTSIDE RECORDS SUMMARY | 2024-06-24 15:43 | XMS_ITS | Encounter Summary ---
Author Organization [employer] Address [address] [facility] [address] [place] [address] Care Team Providers Care Rn Dialysis Name Role Phone Miranda Maravilla DO Primary Care Provider + [phone] Reason for Visit * Reason Onset Date Comments Recall Appt. 05/28/2024 Encounter Details Date Type Department Care Team ([facility] st Contact Info) Description 05/28/2024 Telephone [facility] [address] [place] [address] Miranda Maravilla DO [address] [place], [place] [phone] Recall Appt. Social History Tobacco Use Types [...] Description 07/30/2024 9:30 AM EDT Office Visit [facility] [address] [place] [address] Miranda Maravilla DO [address] [place] [address] documented as of this encounter Visit Diagnoses Not on filedocumented in this encounter Additional Health Concerns Assessment Noted Time PHQ-9 Depression Total Score: 7 08/20/19 24 10:35 AM EDT documented as of this encounter Care Teams Rn Dialysis Relationship Specialty Start Date End Date Miranda Maravilla DO [address] [place] [address] PCP - General Family Medicine 09/26/19 documented as of this encounter
--- OUTSIDE RECORDS SUMMARY | 2024-06-24 15:44 | XMS_ITS | Clinical Summary ---
Author Organization [employer] Address [address] [facility] [address] [place] [address] Care Team Providers Care Senior Instructional Designer Name Role Phone Miranda Maravilla DO Primary Care Provider + [phone] Allergies No known active allergies Medications ARIPiprazole [...] per day. 30 tablet 024 2024 Active hydrocortisone 2.5 % cream Apply topically [...] MUSCLE SPASMS 30 tablet 3 024 Active omeprazole (PriLOSEC) [address] [...] AT BEDTIME NEEDED RASH 30 g 1 Active acetaminophen (Tylenol 8 Hour) 650 MG ER tablet TAKE 1 TABLET BY MOUTH EVERY 6 HOURS NEEDED FOR MILD PAIN 60 tablet 1 Active calcium carbonate (Calcium Antacid) 500 MG chewable tablet CHEW AND SWALLOW 2 TABLETS BY MOUTH FOUR TIMES DAILY AFTER MEALS AND AT BEDTIME NEEDED FOR HEARTBURN 150 tablet 1 025 Active Eye Itch Relief 0.035 % solution PLACE 1 DROP INTO THE AFFECTED EYE(S) TWICE DAILY IN THE MORNING AND AT BEDTIME NEEDED FOR ITCHY EYES 10 mL 2 Active naproxen (Naprosyn) 500 MG tabletIndications: Pain TAKE 1 TABLET BY MOUTH TWICE DAILY WITH FOOD NEEDED (for pain) 20 tablet 1 Active Ketotifen Fumarate (Alaway) 0.035 % solution Administer 1 drop into affected eye(s) if needed in the morning and at bedtime (eye itching). 10 mL 2 024 2024 Discontinued naproxen (Naprosyn) 500 MG tabletIndications: Pain TAKE 1 TABLET BY MOUTH TWICE DAILY WITH FOOD NEEDED FOR PAIN 20 tablet 1 024 2024 Discontinued calcium carbonate [...] Encounters Date Type Department Care Team Description 06/24/2024 Refill [facility] [address] [place] [address] Miranda Maravilla DO Pain 06/21/2024 Refill [facility] [address], [place] [phone] Miranda Maravilla DO 06/18/2024 Telephone [facility] [address], [place] [phone] Missy Gardner RN Forms/questionnaires 06/13/2024 Orders Only GENERIC EXTERNAL DATA DEPARTMENT Provider, Generic External Data 06/09/[address] [address] Miranda Maravilla DO 06/06/2024 Orders Only [facility] External Provider, [facility] 06/01/[address] [address] Miranda Maravilla DO 05/28/[address] [address] Miranda Maravilla DO Recall Appt. 05/28/2024 Travel 05/17/[address] [address] Miranda Maravilla DO 04/29/2024 6:20 PM EST Office Visit [address] [address] Oliver Bates MD Viral URI 04/25/2024 Orders Only [facility] [address] [place] [address] Jo Ann Christopher MD 04/22/2024 11:00 AM EST Office Visit [address] [address] Madhu Anthony MD Moderate persistent asthma with acute exacerbation (Primary Dx); Viral URI 04/18/2024 3:00 PM EST Office Visit [address] [address] Eusebia [place] MD Onychodystrophy (Primary Dx) 04/18/2024 Travel 04/14/2024 12:00 PM EST Office Visit [address] [address] Miranda Maravilla DO Epigastric pain (Primary Dx); Fatty liver; Abnormal finding of blood chemistry, unspecified; Body mass index (BMI) 40.0-44.9, adult (CMS/HCC); Mixed hyperlipidemia; Encounter for immunization 04/14/2024 Orders Only GENERIC EXTERNAL DATA DEPARTMENT Provider, Generic External Data 04/14/2024 Travel 04/11/2024 Refill [facility] [address] [place] [address] Miranda Maravilla DO Pain 04/08/2024 Telephone [facility] [address], [place] [phone] Miranda Maravilla DO Nurse Triage 04/04/2024 Refill [facility] [address], [place] [phone] Miranda Maravilla DO from Last 3 Months [...] 9:30 AM EDT Office Visit [facility] [address] [place] [address] Miranda Maravilla DO [address] [place] [address] Health Maintenance Due Date Last Done Comments [...] SDOH Screening 08/19/2024 08/20/2023 Mammogram 11/21/2024 11/22/2023, 06/0 09/2023, 05/03/2023, Additional history exists Zoster Vaccines (1 of 2) 2025 Alcohol/Substance Use Screening 04/14/2025 04/14/2024 Tobacco Screening 04/29/2025 04/29/2024 Colorectal Cancer Screening 03/04/2026 FIT DNA/Cologuard 03/04/2026 03/04/2023 Lipid Panel 04/14/2029 04/14/2024, 1009/2022, 10/24/2019 DTaP/Tdap/Td Vaccines (3 - Td or [...] EST Viral URI DERMATOPATHOLOGY REPORT Routine 04/18/19 2:57 PM EST CANCER ANTIGEN 27.29 Routine [...] Routine 03/04/2023 11:20 PM EST Healthcare maintenance NICK HISTORICAL HEPATITIS C AB W/REFL TO HCV RNA, QN, PCR Routine 10/24/2019 9:16 AM EDT HIV 1/2 ANTIGEN/ANTIBODY, FOURTH GENERATION W/RFL Routine 10/24/2019 9:16 AM EDT from Last 3 Months or Most Recently Relevant to Health Maintenance Results * Gross and Microscopic Level 3 (06/13/2024 10:58 AM EST) 06/13/2024 10:5 8 AM EST 06/13/2024 12:19 PM EST [facility] - 06/16/2024 3:33 PM EDT ----- ------- Name: Brandon Lang ? Age/Sex: 49/F ? : 1975 Unit#: [id number] ?? Attend Dr: Jarrett Van MD ?Re06/13/24 ?Status: DEP SDC ? Location: HO.SSS ?Disch: ? ----- ------- SPEC : [id number] ? RECD: 06/13/24 ? STATUS: ??SOUT ? REQ NUM: [id number] ? BAILEY: 06/13/24 ? SUBM DR: Jarrett Van MD ? ENTERED: ??06/13/24 ?SP TYPE: Surgical ? OTHR DR: Miranda [...] wall measures 0.2 cm in average thickness. ??([facility]) Copies To: ?? Miranda Maravilla DO ?? [facility] ?? [address] ?? [place] [address] ?? [phone] ?? Jarrett Van MD ?? [facility] ?? [address] ?? [place] [address] ?? [phone] ?? [email or web address] [employer] ? CONTINUED ON NEXT PAGE ----- ------- Name: Brandon Lang ? Age/Sex: 49/F ? : 1975 Unit#: [id number] ?? Attend Dr: Jarrett Van MD ?Re06/13/24 ?Status: DEP SDC ? Location: HO.SSS ?Disch: ? ----- ------- SPEC : [id number] ? RECD: 06/13/24-1218 ? STATUS: ??SOUT ? REQ NUM: [id number] ? BAILEY: 06/13/24-1058 ? SUBM : Jarrett Van MD ? ENTERED: ??06/13/24-1224 ?SP TYPE: Surgical ? OTHR DR: Miranda Maravilla DO ? ORDERED: ??Gross Micro L3 ? ----- ------- Signed (signature on file) Felicita Lei 06/16/24 1533 ? ----- ------- ? END OF REPORT ? us Generic External Data Provider LAB CYTOLOGY ORDE RABLES Final Result [facility] [address] [place] [address] [phone] * BD DEXA Axial (06/06/2024 10:30 AM EST) Anatomical Region Laterality Modality Body Radiographic Maribel ging 06/06/2024 10:3 0 AM EST Narrative 06/09/2024 7:04 AM EST ? [facility] [place] ? [address] ?[place] [address] ? Mammography Report ? Signed ? Patient: RickeyBrandon Luis ?MR#: [id number] ? : 1975 ?Acct:[id number] ? Age/Sex: 49 / F ?ADM Date: 06/06/24 ? Loc: HO.MAMMO ? Attending Dr: Christiana Romero MD ? Ordering Physician: Christiana Romero MD ?Results: ? Date of Service: 06/06/ ?Follow Up: ? Procedure(s): XR DEXA axial skeleton ?? Accession Number(s): [id number] ? cc: Miranda Maravilla DO; Christiana Romero MD ? EXAMINATION: ??DXA BONE DENSITY AXIAL ? HISTORY: ??Estrogen deficiency ? TECHNIQUE: Maternova Dual energy absorptiometry (DEXA) ?? of the [...] the [employer]'s ?? [facility] Metabolic Bone Disease, a World Health Organization (WHO) ?? Collaborating Center. ? Electronically signed by: ??Felix Corral MD ??06/09/2024 07:01 AM EST ?? RP ? Dictated By: ?Felix Corral MD ? Signed By: ?<Electronically signed by Felix Corral MD in OV> ?06/09/24 0701 ? DD/ 1030 ? TD/TT: 06/06/24 1050 ? Appellate Conferee: ? Procedure Note Mini Pinto - 06/09/2024 [facility]'s [address] [place] [address] Mammography Report Signed Patient: Brandon Lang YMR#: [id number] : 1975Acct:[id number] Age/Sex: 49 / FADM Date: 06/06/24 Loc: HO.MAMMO Attending Dr: Christiana Romero MD Ordering Physician: Christiana Romeroesults: Date of Service: 06/06/24Follow Up: Procedure(s): XR DEXA axial skeleton Accession Number(s): [id number] cc: Miranda Maravilla DO; Christiana Romero MD EXAMINATION: DXA BONE DENSITY AXIAL HISTORY: Estrogen deficiency TECHNIQUE: Maternova Dual energy absorptiometry (DEXA) of the lumbar [...] is a trademark of the [employer]'s [facility] Disease, a World Health Organization (WHO) Collaborating Center. Electronically signed by: Felix Corral MD 06/09/2024 07:01 AM EST RP Dictated By: Felix Corral MD Signed By: <Electronically signed by Felix Corral MD in OV> 06/09/24 0701 DD/ 1030 TD/TT: 06/06/24 1050 Appellate Conferee: [facility] External Provider IMG DXA PROCEDURES Final Result * US Abdomen Complete (05/06/2024 1:03 PM EST) Anatomical Region Laterality Modality Abdomen Ultrasound 05/06/2024 1:03 PM EST Narrative 05/06/2024 1:05 PM EST ? [facility] ?[address] ?[place] [address] ? Ultrasound Report ? Signed ? Patient: Brandon Lang Luis ?MR#: [id number] ? : 1975 ?Acct:[id number] ? Age/Sex: 49 / F ?ADM Date: 05/06/24 ? Loc: HO.US ? Attending Dr: Miranda Maravilla DO ? Ordering Physician: Miranda Maravilla DO ?? Date of Service: 05/06/24 ?? Procedure(s): US abdomen complete ?? Accession Number(s): [id number] ? cc: Miranda Maravilla DO; Jarrett Van [...] on ?? 05/06/2024 13:03:58 ? Dictated By: ?Rxe Ohara MD ? Signed By: ?<Electronically signed by Rex Ohara MD in OV> ? 05/06/24 1304 ? DD/ 1303 ? TD/TT: 05/06/24 1303 ? Appellate Conferee: ? Procedure Note Donotuseinterpreter, Image - 05/06/2024 [place] [address] Ultrasound Report Signed Patient: Brandon Lang YMR#: [id number] : 1975Acct:[id number] Age/Sex: 49 / FADM Date: 05/06/24 Loc: HO.US Attending Dr: Miranda Maravilla DO Ordering Physician: Miranda Maravilla DO Date of Service: 05/06/24 Procedure(s): US abdomen complete Accession Number(s): [id number] cc: Miranda Maravilla DO; Jarrett Van MD [...] 05/06/24 1304 DD/ 1303 TD/TT: 05/06/24 1303 Appellate Conferee: us Miranda Maravilla DO IMG US PROCEDURES Final Resu lt * XR Chest 2 Views (04/30/2024 11:21 AM EST) Anatomical Region Laterality Modality Chest Radiographic Maribel ging 04/30/2024 11:2 1 AM EST Narrative 04/30/2024 1:31 PM EST ?[facility] ?[address] ?[place] [address] ?XRay Report ? Signed ? Patient: Rickey,Brandon Y ?MR#: [id number] ? : 1975 ?Acct:[id number] ? Age/Sex: 49 / F ?ADM Date: 04/30/24 ? Loc: HO.HHCX ? Attending Dr: Oliver Bates MD ? Ordering Physician: Oliver Bates MD ?? Date of Service: 04/30/24 ?? Procedure(s): XR chest 2V ?? Accession Number(s): [id number] ? cc: Oliver Bates MD ? EXAMINATION: [...] DD/ 1121 ? TD/TT: 04/30/24 1200 ? Appellate Conferee: MSM ? Procedure Note Blair, Image - 04/30/2024 [facility] [address] [place] [address] XRay Report Signed Patient: Brandon Lang YMR#: [id number] : 1975Acct:[id number] Age/Sex: 49 / FADM Date: 04/30/24 Loc: HO.HHCX Attending Dr: Oliver Bates MD Ordering Physician: Oliver Bates MD Date of Service: 04/30/24 Procedure(s): XR chest 2V Accession Number(s): [id number] cc: Oliver Bates MD EXAMINATION: XR CHEST [...] 04/30/24 1328 DD/ 1121 TD/TT: 04/30/24 1200 Appellate Conferee: MSM Oliver Bates MD IMG XR PROCEDURES Final Result * POCT Rapid Influenza B ONTIVEROS ID NOW (04/29/2024 7:14 PM EST) Only the most recent of2 resultswithin the time period is included. Influenza B Negative Negative, Indeterminate [facility] QC Media Lot # [id number] [facility] Lot# Expiration Date [id number] [facility] Swab 04/29/2024 7:14 PM EST Oliver Bates MD POINT OF CARE TEST ENTER/EDIT OR DERABLES Final Result Performing Organization Address City/[facility]/ZIP Co de Phone Number [facility] [address] [place] [address] [phone] * POCT Rapid Influenza A ONTIVEROS ID NOW (04/29/2024 7:14 PM EST) Only the most recent of2 resultswithin the time period is included. Pathologist [facility] Influenza A Negative Negative, Indeterminate [facility] QC Media Lot # [id number] [facility] Lot# Expiration Date [facility] Swab 04/29/2024 7:14 PM EST Oliver Bates MD POINT OF CARE TEST ENTER/EDIT OR DERABLES Final Result Performing Organization Address [facility]/ZIP Co de Phone Number [facility] [address] [place] [address] [phone] * POCT Rapid Covid-19 BinaxNOW (04/29/2024 7:14 PM EST) Only the most recent of2 resultswithin the time period is included. [facility] Rapid COVID Ag Negative QC Media Lot # [id number] Lot# Expiration Date Swab 04/29/2024 7:14 PM EST us Oliver Bates MD POINT OF CARE TEST ENTER/EDIT OR DERABLES Final Result * Respiratory Viral Panel PCR (04/29/2024 12:00 AM EST) [facility] Adenovirus PCR Not Detected Not Detect. [facility] Bordetella pertussis PCR Not Detected Not Detect. [facility] Comment:Interpret results wi th caution. If B. pertussis isspecifically suspected, additional testing using analternate method is recommended. Bordetella parapertussis PCR Not Detected Not Detect. [facility] Chlamydia pneumoniae PCR Not Detected Not Detect. [facility] Coronavirus 229E PCR Not Detected Not Detect. [facility] Coronavirus HKU1 PCR Not Detected Not Detect. [facility] Coronavirus NL63 PCR Not Detected Not Detect. [facility] Coronavirus OC43 PCR Not Detected Not Detect. [facility] SARS-CoV-2 PCR Not Detected Not Detect. [facility] Comment:SARS-CoV-2 not detec michael by real-time RT-PCR.Note: If clinical suspicion for Sars-CoV-2 is high, continueto maintain precautions and consider repeat testing.Test results should be interpreted in the context ofclinical findings and other laboratory data.Rare polymorphisms exist that could lead to false-negativeor false-positive results. If results do not match theclinical findings, additional testing should be considered.Results reported to CHARLES NEGRETE.This test has been authorized by the FDA under the EmergencyUse Authorization (EUA) for use by authorized laboratories. Influenza A PCR Not Detected Not Detect. [facility] Influenza B PCR Not Detected Not Detect. [facility] Human metapneumovirus PCR Not Detected Not Detect. [facility] Rhino/Enterovirus PCR Not Detected Not Detect. [facility] Mycoplasma pneumoniae PCR Not Detected Not Detect. [facility] Parainfluenza 1 PCR Not Detected Not Detect. [facility] Parainfluenza 2 PCR Not Detected Not Detect. [facility] Parainfluenza 3 PCR Not Detected Not Detect. [facility] Parainfluenza 4 PCR Not Detected Not Detect. [facility] RSV PCR Not Detected Not Detect. [facility] Resp Panel NA Note See Note H [facility] Comment:All results must be correlated [...] assay is performed by Multiplexed PCR, utilizing theDistil Interactive Film Array. 04/29/2024 04/29/2024 Oliver Bates MD LAB BLOOD ORDERABLES Final Resul t [facility] [address] [place] [phone] * Dermatopathology Report (04/18/2024 2:57 PM EST) Historical Provider LAB BLOOD ORDERABLES Barby l Result * Vitamin D, 25-Hydroxy, Total, Immunoassay (04/14/2024 12:38 PM EST) Vitamin D 25-OH Total 42.5 >30 ng/mL [facility] Comment:Health Based Referen ce Values*< 20 ng/mL Gfawdbbhb27-91 ng/mL Insufficient> 30 ng/mL Sufficient*Sarah MENDEZ. N [...] LAB BLOOD ORDERABLES Final R esult [facility] [address] [place] [phone] * (ABNORMAL) CBC auto differential (04/14/2024 12:38 PM EST) White Blood Count 5.0 4.8 - 10.8 X10*3/uL [facility] Red Blood Count 4.70 4.20 - 5.50 X10*6/uL [facility] Hemoglobin 12.7 12.0 - 16.0 g/dl [facility] Hematocrit 40.7 37.0 - 47.0 % [facility] Mean Corpuscular Volume 86.6 80.0 - 98.0 fL [facility] Mean Corpuscular Hemoglobin 27.0 27.0 - 33.0 pg [facility] Mean Corpuscular HGB Conc 31.2 31.0 - 35.0 g/dl [facility] Red Cell Distribution Width 17.2(H) 11.0 - 16.0 % [facility] Platelet Count 155(L) 160 - 400 X10*3/uL [facility] Mean Platelet Volume 11.1 9.4 - 12.3 fL [facility] Neutrophils Percent Auto 73.6(H) 45 - 73 % [facility] Imm Gran Pct Auto 0.4 0.0 - 0.4 % [facility] Lymphocytes Percent Auto 11.3(L) 20 - 40 % [facility] Monocytes Percent Auto 8.7 2 - 11 % [facility] Eosinophils Percent Auto 5.6(H) 0 - 4 % [facility] Basophils Percent Auto 0.4 0 - 2 % [facility] NRBC Pct Auto 0.0 0.0 - 0.2 /100WBC [facility] Neutrophils Absolute Auto 3.7 2.0 - 8.3 x10*3/uL [facility] Imm Gran Abs Auto 0.02 0.00 - 0.03 X10*3/uL [facility] Lymphocytes Absolute Auto 0.6(L) 1.2 - 4.9 X10*3/uL [facility] Monocytes Absolute Auto 0.4 0.1 - 1.2 X10*3/uL [facility] Eosinophils Absolute Auto 0.3 0.0 - 0.4 X10*3/uL [facility] Basophils Absolute Auto 0.0 0.0 - 0.2 X10*3/uL [facility] NRBC Abs Auto 0.000 0.0 - 0.012 X10*3/uL [facility] 04/14/2024 12:3 8 PM EST 04/14/2024 1:44 PM EST us Generic External Data Provider LAB BLOOD ORDERAB LES Final Result Performing Organization Address City/[facility]/ZIP Co de Phone Number [facility] [address] [place] [phone] * Cancer antigen 27.29 (04/14/2024 12:38 PM EST) CA 27.29 16 <38 U/mL [facility] Comment:This test was perfor med [...] adjustment made inOctober 2023 by the reagent foreign legal consultant. In the lowrange for this assay (<38 U/mL), this increase may begreater than 20%. Serially monitored results shouldalways be used in conjunction with other diagnosticprocedures, including clinical evaluation.THIS TEST WAS PERFORMED AT:[id number] [place] [id number] ROSE MD 04/14/2024 12:3 8 PM EST 04/14/2024 1:44 PM EST us Generic External Data Provider LAB BLOOD ORDERAB LES Final Result Performing Organization Address [facility]/ZIP Co de Phone Number [facility] [address] [place] [phone] * Alpha-Fetoprotein, Tumor Marker (04/14/2024 12:38 PM EST) Alpha Fetoprotein 3.1 ng/mL [facility] Comment:Reference Range: <6. 1The use of AFP as a tumor marker in females is not recommended.This test was performed using the Jessica Coulterchemiluminescent method. Values obtained fromdifferent assay methods cannot be usedinterchangeably. AFP levels, regardless ofvalue, should not be interpreted as absoluteevidence of the presence or absence of disease.THIS TEST WAS PERFORMED AT:[id number] [place] [id number] ROSE MD Blood Venous blood specimen / Unknown 04/14/2024 12:38 PM EST 04/14/2024 1:44 PM EST us Miranda Maravilla DO LAB BLOOD ORDERABLES Final R esult [facility] [address] [place] [phone] * (ABNORMAL) CBC (04/14/2024 12:38 PM EST) White Blood Count 4.9 4.8 - 10.8 X10*3/uL [facility] Red Blood Count 4.69 4.20 - 5.50 X10*6/uL [facility] Hemoglobin 12.5 12.0 - 16.0 g/dl [facility] Hematocrit 40.6 37.0 - 47.0 % [facility] Mean Corpuscular Volume 86.6 80.0 - 98.0 fL [facility] Mean Corpuscular Hemoglobin 26.7(L) 27.0 - 33.0 pg [facility] Mean Corpuscular HGB Conc 30.8(L) 31.0 - 35.0 g/dl [facility] Red Cell Distribution Width 17.2(H) 11.0 - 16.0 % [facility] Platelet Count 161 160 - 400 X10*3/uL [facility] Mean Platelet Volume 11.3 9.4 - 12.3 fL [facility] NRBC Pct Auto 0.0 0.0 - 0.2 /100WBC [facility] NRBC Abs Auto 0.000 0.0 - 0.012 X10*3/uL [facility] Blood Venous blood specimen / Unknown 04/14/2024 12:38 PM EST 04/14/2024 1:44 PM EST Miranda Maravilla LAB BLOOD ORDERABLES Final R esult [facility] [address] [place] [phone] * Lipase (04/14/2024 12:38 PM EST) Lipase 31 8 - 78 U/L [facility] Blood Venous blood specimen / Unknown 04/14/2024 12:38 PM EST 04/14/2024 1:44 PM EST Miranda Deleonjackrena LAB BLOOD ORDERABLES Final R esult [facility] [address] [place] [phone] * Hemoglobin A1c (04/14/2024 12:38 PM EST) Hemoglobin A1c 5.3 <6.0 % [facility] Comment:Hemoglobin A1C Refer ence Range Adults: 4.8 - 6.0 % Non diabetic: < 6.0 % Goal: < 7.0 %Additional Action Suggested: > 8.0 %Note: Hemoglobin A1c results are invalid for patients with abnormal amounts of HbF. Blood transfusions may impact the HbA1c concentration in the patient sample. Estimated Average Glucose 105 mg/dL [facility] Comment:eAG = Estimated ave rage glucose which is %A1C expressed asaverage glucose, using the formula of the K4P-CyimmalIbvswwe Glucose study (ADAG), Diabetes Care, Vol.31,#8,2007 Blood Venous blood specimen / Unknown 04/14/2024 12:38 PM EST 04/14/2024 1:44 PM EST Miranda Renita DO LAB BLOOD ORDERABLES Final R esult Performing Organization Address City/[facility]/ZIP Co de Phone Number [facility] [address] [place] [phone] * Amylase (04/14/2024 12:38 PM EST) Amylase 57 28 - 100 U/L [facility] Blood Venous blood specimen / Unknown 04/14/2024 12:38 PM EST 04/14/2024 1:44 PM EST Miranda Renita DO LAB BLOOD ORDERABLES Final R esult Performing Organization Address City/[facility] Co de Phone Number [facility] [address] [place] [phone] * Hepatic Function Panel (04/14/2024 12:38 PM EST) Bilirubin, Direct 0.1 0.0 - 0.5 mg/dL [facility] Blood Venous blood specimen / Unknown 04/14/2024 12:38 PM EST 04/14/2024 1:44 PM EST Miranda Deleoncorky DO LAB BLOOD ORDERABLES Final R esult Performing Organization Address City/[facility]/ZIP Co de Phone Number [facility] [address] [place] [phone] * (ABNORMAL) Lipid Panel, Standard (04/14/2024 12:38 PM EST) Triglycerides 82 <150 mg/dL [facility] Comment:Desirable Triglyceri de: less than 150 mg/dLBorderline High Triglyceride 150-199 mg/dLHigh Triglyceride: 200-499 mg/dLVery High Triglyceride: greater than or equal to 5OO mg/dL Cholesterol 199 <200 mg/dL [facility] Comment:Desirable Cholestero l: less than 200 mg/dLBorderline High Cholesterol: 200-239 mg/dLHigh Cholesterol: greater than 239 mg/dL LDL Cholesterol Calculated 104(H) <100 mg/dL [facility] Comment:Desirable LDL: less than 100 mg/dLNear Optimal/Above Optimal LDL: 110- 129 mg/dLBorderline High LDL: 130-159 mg/dLHigh LDL: 160-189 mg/dLVery High LDL: greater than or equal to 190 mg/dL HDL Cholesterol 79 >40 mg/dL [facility] Comment:Desirable HDL: great er than 40 mg/dL Note: This HDL assay may give artificially low results in patients with liver disease. Blood Venous blood specimen / Unknown 04/14/2024 12:38 PM EST 04/14/2024 1:44 PM EST us Miranda Maravilla DO LAB BLOOD ORDERABLES Final R esult [facility] [address] [place] [phone] * (ABNORMAL) Comprehensive Metabolic Panel (04/14/2024 12:38 PM EST) Sodium 142 135 - 145 mmol/L [facility] Potassium 4.0 3.3 - 5.1 mmol/L [facility] Chloride 105 96 - 108 mmol/L [facility] Carbon Dioxide 31(H) 22 - 29 mmol/L [facility] Anion Gap 10(L) 12 - 20 [facility] Urea Nitrogen (BUN) 11 9 - 16 mg/dL [facility] Creatinine, Serum 0.63 0.5 - 1.4 mg/dL [facility] Estimated Glomerular Filt Rate >60 [facility] Comment:Chronic Kidney Disea se: Estimated GFR < 60 mL/min/1.35y1Tzensl Kidney Disease: Estimated GFR < 15 mL/min/1.73m2 Glucose 119(H) 60 - 115 mg/dL [facility] Calcium 9.5 8.4 - 10.2 mg/dL [facility] Bilirubin, Total 0.4 0.0 - 1.0 mg/dL [facility] Aspartate Amino Transferase 23 5 - 31 U/L [facility] Alanine Aminotransferase 23 0 - 31 U/L [facility] Total Protein 7.2 6.5 - 8.0 g/dL [facility] Albumin Level 3.8 3.5 - 5.0 g/dL [facility] Alkaline Phosphatase 85 39 - 117 U/L [facility] 04/14/2024 12:3 8 PM EST 04/14/2024 1:44 PM EST us Generic External Data Provider LAB BLOOD ORDERAB LES Final Result [facility] [address] [place] [address] [phone] * BI Mammogram Diagnostic Tomosynthesis Left (11/22/2023 1:20 PM EDT) Anatomical Region Laterality Modality Breast Left Mammography 11/22/2023 1:20 PM EDT Narrative 11/22/2023 2:00 PM EDT ? [facility] ? [address] ?[place] [address] ? Mammography Report ? Signed ? Patient: RickeyBrandon Smith ?MR#: [id number] ? : 1975 ?Acct:[id number] ? Age/Sex: 48 / F ?ADM Date: 08/15/24 ? Loc: HO.MAMMO ? Attending Dr: Christiana Romero MD ? Ordering Physician: Christiana Romero MD ?Results: 6Known ?? Biopsy Proven Malignancy ? Date of Service: 11/22/23 ?Follow Up: Surgical Consult ? Procedure(s): MM tomosynthesis diagnostic LT ?? Accession Number(s): [id number] ? cc: Miranda Maravilla DO; Christiana Romero [...] 1356 ? DD/ 1320 ? TD/TT: ? Appellate Conferee: ? Procedure Note Mini Pinto - 11/22/2023 [facility] [address] [place] [address] Mammography Report Signed Patient: Brandon Lang YMR#: [id number] : 1975Acct:[id number] Age/Sex: 48 / FADM Date: 11/22/23 Loc: HO.MAMMO Attending Dr: Christiana Romero MD Ordering Physician: Christiana Romero MDResults: 6Known Biopsy Proven Malignancy Date of Service: 11/22/23Follow Up: Surgical Consult Procedure(s): MM tomosynthesis diagnostic LT Accession Number(s): [id number] cc: Miranda Maravilla DO; Christiana Romero MD [...] in OV> 11/22/23 1356 DD/ 1320 TD/TT: Appellate Conferee: [facility] External Provider IMG BI PROCEDURES Edited Result - Final * (ABNORMAL) Cologuard?? colon cancer screening (03/04/2023 11:20 PM EST) Cologuard Result Positive( A) Negative 03/12/2023 10:35 AM EST [employer] (CLIA #:[id number]) Comment: POSITIVE TEST RESULT. A positive Cologuard [...] Kimball et al, N Engl J Med 2014;370(14):8489-5529.) Cologuard may produce a false negative or false positive result (no colorectal cancer or precancerous polyp present at colonoscopy follow up). A negative Cologuard test result does not guarantee the absence of CRC or advanced adenoma (pre-cancer). The current Cologuard screening interval is every 3 years. ([place] [employer] Society and U.S. Multi-Society Task Force). Cologuard performance data in a 10,000 patient pivotal study using colonoscopy as the reference method can be accessed at the following location: www.[employer]/results. Additional description of the Cologuard test process, warnings and precautions can be found at www.[email or web address].com. Stool specimen (specimen) 03/04/2023 11:20 PM EST 03/06/2023 5:06 PM EST Miranda Maravilla DO LAB MOLECULAR DIAGNOSTICS OR DERABLES Final Result [employer] (CLIA #:[id number]) [place] [address], * HEPATITIS C AB W/REFL TO HCV RNA, QN, PCR (10/24/2019 9:16 AM EDT) HEPATITIS C ANTIBODY NON-REACT QUIANA NON-REACT QUIANA [facility] INDEX 0.02 <1.00 [facility] Comment: ?? HCV antibody was non-reactive. There is no laboratory ?? evidence of HCV infection. ?? In most cases, no further action is required. However, if recent HCV exposure is suspected, a test for HCV RNA (test code 71982) is suggested. ?? For additional information please refer to http://[employer]/faq/VUK04a5 (This link is being provided for informational/ educational purposes only.) ?? HEPATITIS C ANTIBODY NON-REACT QUIANA NON-REACT QUIANA [facility] INDEX 0.02 <1.00 [facility] Comment: ?? HCV antibody was non-reactive. There is no laboratory ?? evidence of HCV infection. ?? In most cases, no further action is required. However, if recent HCV exposure is suspected, a test for HCV RNA (test code 26000) is suggested. ?? For additional information please refer to http://[employer]/faq/JHZ98g5 (This link is being provided for informational/ educational purposes only.) ?? HEPATITIS C ANTIBODY NON-REACT QUIANA NON-REACT QUIANA [facility] INDEX 0.02 <1.00 [facility] Comment: ?? HCV antibody was non-reactive. There is no laboratory ?? evidence of HCV infection. ?? In most cases, no further action is required. However, if recent HCV exposure is suspected, a test for HCV RNA (test code 41614) is suggested. ?? For additional information please refer to http://[employer]/faq/GSL45g6 (This link is being provided for informational/ educational purposes only.) ?? 10/24/2019 9:16 AM EDT Miranda Maravilla DO HISTORICAL/NON ORDERABLE LAB S Final Result [facility] [address] * HIV 1/2 ANTIGEN/ANTIBODY,FOURTH GENERATION W/RFL (10/24/2019 9:16 AM EDT) HIV-1/2 ANTIGEN AND ANTIBODIES, 4TH GENERATION W/ REFLEX NON-REACT QUIANA NON-REACT QUIANA [facility] Comment: HIV-1 antigen and [...] ? For additional information please refer to http://[employer]/faq/DOB859 (This link is being provided for informational/ educational purposes only.) ? The performance of this assay has not been clinically validated in patients less than 2 years old. ?? HIV-1/2 ANTIGEN AND ANTIBODIES, 4TH GENERATION W/ REFLEX NON-REACT QUIANA NON-REACT QUIANA [facility] Comment: HIV-1 antigen and [...] ? For additional information please refer to http://[employer]/faq/FBG307 (This link is being provided for informational/ educational purposes only.) ? The performance of this assay has not been clinically validated in patients less than 2 years old. ?? HIV-1/2 ANTIGEN AND ANTIBODIES, 4TH GENERATION W/ REFLEX NON-REACT QUIANA NON-REACT QUIANA [facility] Comment: HIV-1 antigen and [...] ? For additional information please refer to http://[employer]/faq/UAN315 (This link is being provided for informational/ educational purposes only.) ? The performance of this assay has not been clinically validated in patients less than 2 years old. ?? 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
== END 2024-06-24 13:53 | disposition home or self-care (01) ==
LOC: HO.HPS 13:22
PROVIDERS: PCP Family Medicine; Visit Provider Internal Medicine Pulmonary Disease
DX: J45.909 Unspecified asthma, uncomplicated (principal); G47.33 Obstructive sleep apnea (adult) (pediatric); R06.00 Dyspnea, unspecified
CPT/HCPCS: 99214; G2211

== ENCOUNTER 2024-06-30 09:54 | Outpatient (AMB) | payer MEDICARE, MEDICAID, SELFPAY ==
[2024-06-30 09:58] VITALS: BP 106/68; PULSE 90; BMI 41.9
--- NOTE | 2024-06-30 09:58 | MHC.OFFVIS ---
Vital Signs 06/30/24 09:58 Height 5 ft 2 in Weight 229 lb BMI 41.9 BP 106/68 Blood Pressure Location Lt brachial Position Sitting Pulse 90 Intake Visit Reasons: 2 week follow up Gallbladder port removal Intake Note: patient 2 week follow up Gallbladder port removal. Patient denies any issues for today visit. Trimming Inspector Required: No Accompanied by: Mother Allergies No Known Allergies [No Known Allergies*] Allergy (Unknown, Verified 06/30/24 09:58) HPI Comments Details: Patient presents with her mother for follow-up. She is doing well but. Tolerating diet. Having regular bowel habits. No incisional issues or complaints. [facility] Medical History Menopause Breast mass, left Hospital discharge follow-up Right leg swelling Pulmonary hypertension Acute on chronic respiratory failure with hypoxia and hypercapnia Asthma with exacerbation Pneumonia Status post repair of fracture of orbit COVID Cough Chest pain Sleep apnea Intellectual disability Morbid obesity Intellectual disability Colon cancer screening GEORGE (obstructive sleep apnea) Oxygen desaturation during sleep Asthma Surgical History History of lumpectomy of left breast (12/07/23) Encounter for insertion of tunneled central venous catheter (CVC) with port Cancer of left breast, stage 3 Status post spinal surgery (~1994) History of open reduction and internal fixation (ORIF) procedure History of esophagogastroduodenoscopy (EGD) Family History Mother Diabetes Hypertension Father Hypertension Maternal Uncle Throat cancer Social History Household Members: Spouse and Children Household Members Other:: mother Housing: House Are you a primary patient care coordinator to a significant other at home: No Do you presently have visiting nurse or other home services: Yes (NITROGLYCERIN DISTRIBUTOR) Alcohol intake: never Comment: counts correct Patient Tobacco Use Status: Never used Tobacco e-Cigarette/Vaping Use: Never Used Advance Directives Date on File: 08/14/18 service: No Current occupational status: disabled Physical Exam Vital Signs: Last Vital Signs Pulse 90 06/30/24 09:58 BP 106/68 06/30/24 09:58 BMI result Body Mass Index 41.9 Eyes Other: Anicteric Chest Other: Port site well healed GI Other: Abdomen is soft, benign all wounds clean dry and intact Assessment & Plan Assessment & Plan (1) Status post laparoscopic cholecystectomy: Code(s): Z90.49 - Acquired absence of other specified parts of digestive tract Category: Medical (2) History of removal of Port-a-Cath: Code(s): Z98.890 - Other specified postprocedural states Category: Medical Plan Patient and mother have been given instructions. She will see me after her surveillance mammogram or p.r.n.. All questions answered. Coding Level of Care Code Global (28158) Diagnoses Status post laparoscopic cholecystectomy Z90.49 History of removal of Port-a-Cath Z98.890
== END 2024-06-30 10:14 | disposition home or self-care (01) ==
LOC: HO.HGS 09:54
PROVIDERS: PCP Family Medicine; Visit Provider Surgery
DX: Z90.49 Acquired absence of other specified parts of digestive tract (principal); Z98.890 Other specified postprocedural states
CPT/HCPCS: 99024

== ENCOUNTER → 2024-06-30 09:54 | Outpatient (BNVA) | payer MEDICARE, MEDICAID, SELFPAY | PROVIDERS: PCP Family Medicine; Visit Provider Surgery | DX: Z09 Encounter for follow-up examination after completed treatment for conditions other than malignant neoplasm (principal); Z90.49 Acquired absence of other specified parts of digestive tract; Z98.890 Other specified postprocedural states | CPT/HCPCS: 99212 ==

== ENCOUNTER 2024-07-14 12:35 | Outpatient (REF) | payer MEDICARE, MEDICAID, SELFPAY ==
--- NOTE | ~2024-07-14 | MM_ITS ---
EXAMINATION: MM DIAGNOSTIC DIGITAL BREAST TOMOSYNTHESIS, BILATERAL CLINICAL INFORMATION: Left breast cancer 2023 status post lumpectomy and conservation therapy. COMPARISON: Mammography: Comparison is made with relevant prior exams. TECHNIQUE: Digital breast mammography with tomosynthesis is performed in both the craniocaudal and mediolateral oblique views along with computer-aided detection (CAD). FINDINGS: There are scattered areas of fibroglandular density (ACR BI-RADS breast composition Category b). Left post lumpectomy and post treatment changes. There are no significant masses, abnormal calcifications, or other abnormalities. Results are provided to the patient at time of visit by the technologist. MM/MM tomosynthesis diagnostic BI IMPRESSION: No mammographic evidence of malignancy. ASSESSMENT: BI-RADS BI-RADS 2 - Benign Findings RECOMMENDATION: 1 year F/U This patient's information was entered into a reminder system with a target due date for their next mammogram. Electronically signed by: Shirley Miramontes DO 07/14/2024 01:55 PM EDT
--- OUTSIDE RECORDS SUMMARY | 2024-07-14 14:52 | XMS_ITS | Encounter Summary ---
Author Organization [employer] Address [address] [facility] [address] [place] [address] Care Team Providers Care Customer Orders Clerk Name Role Phone Miranda Maravilla DO Primary Care Provider + [phone] Reason for Visit * Reason Comments Med Refill Encounter Details Date Type Department Care Team ([facility] Contact Info) Description 07/26/2022 Refill [facility] [address] [place] [address] [phone] Miranda Maravilla DO [address] [place], [place] [phone] Social History Tobacco Use Types Packs/Day Years [...] Upcoming Encounters Date Type Department Care Team ([facility] Contact Info) Description 07/30/2024 9:30 AM EDT Office Visit [facility] [address] [place] [phone] Miranda Maravilla DO [address] [place] [address] documented as of this encounter Visit Diagnoses Not on filedocumented in this encounter Additional Health Concerns Assessment Noted Time PHQ-9 Depression Total Score: 0 05/09/19 23 9:16 AM EST documented as of this encounter Care Teams Customer Orders Clerk Relationship Specialty Start Date End Date Miranda Maravilla DO [address] [place] [address] PCP - General Family Medicine 09/26/19 documented as of this encounter
--- OUTSIDE RECORDS SUMMARY | 2024-07-14 14:52 | XMS_ITS | Encounter Summary ---
Author Organization [employer] Address [address] [facility] [address] [place] [address] Care Team Providers Care Patient Registration Representative Name Role Phone Miranda Maravilla Primary Care Provider + [phone] Encounter Details Date Type Department Care Team (Late st Contact Info) Description 04/25/2024 Orders Only [facility] [address] [place], [place] [phone] Provider, MD Jo Ann Social History Tobacco [...] Description 07/30/2024 9:30 AM EDT Office [address] [facility] [address] [place] [address] Miranda Maravilla DO [address] [place] [address] documented as of this encounter Procedures Procedure [...] documented as of this encounter Care Teams Patient Registration Representative Relationship Specialty Start Date End Date Miranda Maravilla DO [address] [place] [address] PCP - General Family Medicine 09/26/19 documented as of this encounter
--- OUTSIDE RECORDS SUMMARY | 2024-07-14 14:52 | XMS_ITS | Encounter Summary ---
Author Organization [employer] Address [address] [facility] [address] [place] [address] Care Team Providers Care Director Ship Name Role Phone Miranda Maravilla DO Primary Care Provider + [phone] Reason for Visit * Reason Comments Med Refill Encounter Details Date Type Department Care Team ([facility] st Contact Info) Description 06/11/2023 Refill [facility] [address] [place] [address] Miranda Maravilla DO [address] [place], [place] [phone] Pain Social History Tobacco Use Types Packs/Day [...] the past 12 months, has t he [employer]Stream, gas, oil or water company threatened to [...] EDT Office Visit [facility] [address] [place] [address] Miranda Maravilla DO [address] [place] [address] documented as of this encounter Visit Diagnoses Diagnosis Pain Generalized pain documented in this encounter Additional Health Concerns Assessment Noted Time PHQ-9 Depression Total Score: 0 05/09/19 23 9:16 AM EST documented as of this encounter Care Teams Director Ship Relationship Specialty Start Date End Date Miranda Maravilla DO [address] [place] [address] PCP - General Family Medicine 09/26/19 documented as of this encounter
--- OUTSIDE RECORDS SUMMARY | 2024-07-14 14:52 | XMS_ITS | Encounter Summary ---
Author Organization [employer] Address [address] [facility] [address] [place] [address] Care Team Providers Care Final Coat Sprayer Name Role Phone Miranda Maravilla DO Primary Care Provider + [phone] Reason for Visit * Reason Comments Med Refill Encounter Details Date Type Department Care Team ([facility] Contact Info) Description 07/22/2022 Refill [facility] [address] [place] [address] [phone] Miranda Maravilla DO [address] [place], [place] [phone] Social History Tobacco Use Types Packs/Day Years [...] Upcoming Encounters Date Type Department Care Team ([facility] Contact Info) Description 07/30/2024 9:30 AM EDT Office Visit [facility] [address] [place] [phone] Miranda Maravilla DO [address] [place] [address] documented as of this encounter Visit Diagnoses Not on filedocumented in this encounter Additional Health Concerns Assessment Noted Time PHQ-9 Depression Total Score: 0 05/09/19 23 9:16 AM EST documented as of this encounter Care Teams Final Coat Sprayer Relationship Specialty Start Date End Date Miranda Maravilla DO [address] [place] [address] PCP - General Family Medicine 09/26/19 documented as of this encounter
--- OUTSIDE RECORDS SUMMARY | 2024-07-14 14:52 | XMS_ITS | Clinical Summary ---
Author Organization [employer] Address [address] [facility] [address] [place] [address] Care Team Providers Care Network Manager Name Role Phone Miranda Maravilla DO Primary Care Provider + [phone] Allergies No known active allergies Medications ARIPiprazole [...] EVERY DAY 48 g 023 Active albuterol (2.5 MG/3ML) 0.083% nebulizer solutionIndication s:Moderate persistent asthma with acute exacerbation INHALE 1 AMPULE USING A NEBULIZER EVERY 4 HOURS NEEDED 90 mL 3 023 Active Diclofenac Sodium 1 % gelIndications:Chr onic knee pain, unspecified laterality APPLY TO THE AFFECTED AREA(S) 2 GRAMS TOPICALLY TWICE DAILY IN THE MORNING AND AT BEDTIME NEEDED FOR PAIN 100 g Active Petrolatum 42 % ointment APPLY TOPICALLY TO SKIN TWICE DAILY NEEDED 454 g Active torsemide (Demadex) 20 MG tablet Take 1 tablet (20 mg) by mouth Once per day. 30 tablet 024 2024 Active hydrocortisone 2.5 % cream Apply topically if needed in the morning and at bedtime (foot rash). 28 g 024 Active ipratropium-albute rol (Duo-Neb) 0.5-2.5 mg/3 mL nebulizer solutionIndication s:Unspecified asthma, uncomplicated INHALE 1 AMPULE USING A NEBULIZER THREE TIMES DAILY 180 mL 3 Active Fluticasone Furoate-Vilanterol (Breo Ellipta) 200-25 MCG/ACT [...] FOR MUSCLE SPASMS 30 tablet 3 Active omeprazole (PriLOSEC) [address] capsule Take 1 capsule (20 mg) by mouth before breakfast. Do not crush or chew. 30 capsule 025 2025 Active azithromycin (Zithromax Z-Alan) 250 MG tablet Take 2 tablets once on day 1, then 1 tablet 1x/day for 4 days. 6 tablet Active triamcinolone (Kenalog) 0.1 % ointment APPLY 1 GRAM TOPICALLY TO AFFECTED AREA(S) TWICE DAILY IN THE MORNING AND AT BEDTIME NEEDED RASH 30 g Active acetaminophen (Tylenol 8 Hour) 650 MG ER tablet TAKE 1 TABLET BY MOUTH EVERY 6 HOURS NEEDED FOR MILD PAIN 60 tablet 025 Active calcium carbonate (Calcium Antacid) 500 MG chewable tablet CHEW AND SWALLOW 2 TABLETS BY MOUTH FOUR TIMES DAILY AFTER MEALS AND AT BEDTIME NEEDED FOR HEARTBURN 150 tablet 1 025 Active Eye Itch Relief 0.035 % solution PLACE 1 DROP INTO THE AFFECTED EYE(S) TWICE DAILY IN THE MORNING AND AT BEDTIME NEEDED FOR ITCHY EYES 10 mL 2 025 Active naproxen (Naprosyn) 500 MG tabletIndications: Pain TAKE 1 TABLET BY MOUTH TWICE DAILY WITH FOOD NEEDED (for pain) 20 tablet 1 025 Active Ventolin HFA 108 (90 Base) MCG/ACT inhalerIndications :Moderate persistent asthma without complication,Obstr uctive sleep apnea syndrome,Obesity hypoventilation syndrome (CMS/HCC) INHALE 2 PUFFS BY MOUTH EVERY 4 HOURS NEEDED FOR WHEEZING OR SHORTNESS OF BREATH 18 g 11 025 Active senna (Senokot) 8.6 MG tabletIndications: Chronic constipation TAKE 2 TABLETS BY MOUTH EVERY DAY AT BEDTIME NEEDED FOR CONSTIPATION 180 tablet 3 025 Active docusate sodium (Colace) 100 MG capsule TAKE 1 CAPSULE BY MOUTH TWICE DAILY NEEDED 180 capsule 3 025 Active albuterol (ProAir HFA) 108 (90 Base) MCG/ACT inhalerIndications :Moderate persistent asthma without complication,Obstr uctive sleep apnea syndrome,Obesity hypoventilation syndrome (CMS/HCC) Inhale 2 puffs every 4 (four) hours if needed for shortness of breath or wheezing. 18 g 11 023 2024 Discontinued docusate sodium (Colace) 100 MG capsule TAKE 1 CAPSULE BY MOUTH TWICE DAILY NEEDED 180 capsule 3 024 2024 Discontinued senna (Senokot) 8.6 MG tabletIndications: Chronic constipation TAKE 2 TABLETS BY MOUTH AT BEDTIME NEEDED FOR CONSTIPATION 180 tablet 3 024 2024 Discontinued Ketotifen Fumarate (Alaway) 0.035 % solution Administer 1 drop into affected eye(s) if needed in the morning and at bedtime (eye itching). 10 mL 2 024 2024 Discontinued naproxen (Naprosyn) 500 MG tabletIndications: Pain TAKE 1 TABLET BY MOUTH TWICE DAILY WITH FOOD NEEDED FOR PAIN 20 tablet 1 024 2024 Discontinued Active Problems [...] Encounters Date Type Department Care Team Description 07/14/2024 Orders Only [facility] External Provider, [facility] 06/30/2024 Refill [facility] [address] [place] [address] Miranda Maravilla DO Chronic constipation 06/25/2024 Refill [facility] [place] [address] [place] [address] Madhu Anthony MD Moderate persistent asthma without complication; Obstructive sleep apnea syndrome; Obesity hypoventilation syndrome ([facility]/HCC) 06/24/2024 Refill [facility] [address] [place] [address] Miranda Maravilla DO Pain 06/21/2024 Refill [facility] [address] [place] [address] Miranda Maravilla DO 06/18/2024 Telephone [facility] [address] [place] [address] Missy Gardner RN Forms/questionnaires 06/13/2024 Orders Only GENERIC EXTERNAL DATA DEPARTMENT Provider, Generic External Data 06/09/2024 Refill [facility] [address] [place] [address] Miranda Maravilla DO 06/06/2024 Orders Only [facility] External Provider, [facility] 06/01/2024 Refill [facility] [address] [place] [address] Miranda Maravilla DO 05/28/2024 Telephone [facility] [address] [place] [address] Miranda Maravilla DO Recall Appt. 05/28/2024 Travel 05/17/2024 Refill [facility] [address] [place] [address] Miranda Maravilla DO 04/29/2024 6:20 PM EST Office Visit [facility] [place] [address] [place] [address] Oliver Bates MD Viral URI 04/25/2024 Orders Only [facility] [address] [place] [address] ProviderJo Ann MD 04/22/2024 11:00 AM EST Office Visit [facility] [address] [place] [address] Madhu Anthony MD Moderate persistent asthma with acute exacerbation (Primary Dx); Viral URI 04/18/2024 3:00 PM EST Office Visit [facility] [address] [place] [address] Eusebia [place] MD Onychodystrophy (Primary Dx) 04/18/2024 Travel from Last 3 Months Immunizations Name Administration [...] Description 07/30/2024 9:30 AM EDT Office Visit [facility] [address] [place] [address] Miranda Maravilla DO [address] [place] [address] Health Maintenance Due Date Last Done Comments [...] Screening 04/14/2025 04/14/2024 Tobacco Screening 04/29/2025 04/29/2024 Mammogram 07/14/2025 07/14/2024, 0808/2023, 09/13/2023, Additional history exists Colorectal Cancer Screening 03/04/2026 FIT DNA/Cologuard 03/04/2026 [...] Procedure Name Priority Date/Time Associated Diagnosis Comments BI MAMMOGRAM DIAGNOSTIC TOMOSYNTHESIS BILATERAL Routine 07/14/2024 1:00 PM EDT GROSS AND MICROSCOPIC LEVEL 3 Routine 06/13/2024 [...] Viral URI POCT RAPID COVID ANTIGEN Routine 025 7:14 PM EST Viral URI RESPIRATORY VIRAL PANEL PCR Routine 04/29/2024 12:00 AM EST Viral URI POCT INFLUENZA B (ID NOW RAPID MOLECULAR) Routine 04/22/2024 12:00 PM EST Viral URI POCT INFLUENZA A (ID NOW RAPID MOLECULAR) Routine 04/22/2024 12:00 PM EST Viral URI POCT RAPID COVID ANTIGEN Routine 025 12:00 PM EST Viral URI DERMATOPATHOLOGY REPORT Routine 04/18/19 25 2:57 PM EST LIPID PANEL, STANDARD Routine 04/14/2024 12:38 PM [...] Recently Relevant to Health Maintenance Results * BI Mammogram Diagnostic Tomosynthesis Bilateral (07/14/2024 1:00 PM EDT) Anatomical Region Laterality Modality Breast Bilateral Mammography 07/14/2024 1:00 PM EDT Narrative 07/14/2024 1:58 PM EDT ? [facility] ? [address] ?[place] [address] ?[phone] ? Mammography Report ? Signed ? Patient: Rickey,Brandon Y ?MR#: [id number] ? : 1975 ?Acct:[id number] ? Age/Sex: 49 / F ?ADM Date: 04/07/25 ? Loc: HO.MAMMO ? Attending Ananth Van MD ? Ordering Physician: Jarrett Van MD ?Results: 2Benig ?? n Findings ? Date of Service: 07/14/24 ?Follow Up: 1 Year From Orig ?? inal Mammogram ? Procedure(s): MM tomosynthesis diagnostic BI ?? Accession Number(s): [id number] ? cc: Miranda Maravilla DO; Jarrett Van MD ? EXAMINATION: ?? MM DIAGNOSTIC DIGITAL BREAST TOMOSYNTHESIS, BILATERAL ? CLINICAL INFORMATION: ? Left breast cancer 2023 status post lumpectomy and conservation ?? therapy. ? COMPARISON: ?? Mammography: Comparison is made with relevant prior exams. ? TECHNIQUE: ?? Digital breast mammography with tomosynthesis is performed in both the ?? craniocaudal and mediolateral oblique views along with computer-aided ?? detection (CAD). ? FINDINGS: ?? There are scattered areas of fibroglandular density (ACR BI-RADS breast ?? composition Category b). ?? Left post lumpectomy and post treatment changes. ?? There are no significant masses, abnormal calcifications, or other ?? abnormalities. ? Results are provided to the patient at time of visit by the ?? technologist. ? MM/MM tomosynthesis diagnostic BI ?? IMPRESSION: ?? No mammographic evidence of malignancy. ? ASSESSMENT: ? BI-RADS BI-RADS 2 - Benign Findings ? RECOMMENDATION: ?? 1 year F/U ? This patient's information was entered into a reminder system with a ?? target due date for their next mammogram. ? Electronically signed by: ??Shirley Miramontes DO ??07/14/2024 01:55 PM EDT ?? RP ? Dictated By: ?Shirley Miramontes DO ? Signed By: ?<Electronically signed by Shirley Miramontes, DO in OV> ? 07/14/24 1355 ? DD/ 1300 ? TD/TT: 07/14/24 1345 ? Air Antisubmarine Officer: ? Procedure Note Donotuseinterpreter, Image - 07/14/2024 [place] [facility] [address] [place] [address] Mammography Report Signed Patient: Brandon Lang YMR#: [id number] : 1975Acct:[id number] Age/Sex: 49 / FADM Date: 07/14/24 Loc: HO.MAMMO Attending Dr: Jarrett Van MD Ordering Physician: Jarrett Van MDResults: 2Benig n Findings Date of Service: 07/14/24Follow Up: 1 Year From Orig ina Mammogram Procedure(s): MM tomosynthesis diagnostic BI Accession Number(s): [id number] cc: Miranda Maravilla DO; Jarrett Van MD EXAMINATION: MM DIAGNOSTIC DIGITAL BREAST TOMOSYNTHESIS, BILATERAL CLINICAL INFORMATION: Left breast cancer 2023 status post lumpectomy and conservation therapy. COMPARISON: Mammography: Comparison is made with relevant prior exams. TECHNIQUE: Digital breast mammography with tomosynthesis is performed in both the craniocaudal and mediolateral oblique views along with computer-aided detection (CAD). FINDINGS: There are scattered areas of fibroglandular density (ACR BI-RADS breast composition Category b). Left post lumpectomy and post treatment changes. There are no significant masses, abnormal calcifications, or other abnormalities. Results are provided to the patient at time of visit by the technologist. MM/MM tomosynthesis diagnostic BI IMPRESSION: No mammographic evidence of malignancy. ASSESSMENT: BI-RADS BI-RADS 2 - Benign Findings RECOMMENDATION: 1 year F/U This patient's information was entered into a reminder system with a target due date for their next mammogram. Electronically signed by: Shirley Miramontes DO 07/14/2024 01:55 PM EDT RP Dictated By: Shirley Miramontes DO Signed By: <Electronically signed by Shirley Miramontes DO in OV> 07/14/24 1355 DD/ 1300 TD/TT: 07/14/24 1345 Air Antisubmarine Officer: [facility] External Provider IMG BI PROCEDURES Final Result * Gross and Microscopic Level 3 (06/13/2024 10:58 AM EST) 06/13/2024 10:5 8 AM EST 06/13/2024 12:19 PM EST [facility] - 06/16/2024 3:33 PM EDT ----- ------- Name: Brandon Lang ? Age/Sex: 49/F ? : 1975 Unit#: [id number] ?? Attend Dr: Jarrett Van MD ?Re06/13/24 ?Status: DEP SDC ? Location: HO.SSS ?Disch: ? ----- ------- SPEC : [id number] ? RECD: 06/13/24 ? STATUS: ??SOUT ? REQ NUM: [id number] ? BAILEY: 06/13/24 ? SUBM DR: Jarrett [...] wall measures 0.2 cm in average thickness. ??([facility]) Copies To: ?? Miranda Maravilla DO ?? [facility] ?? [address] ?? [place] [address] ?? [phone] ?? Jarrett Van MD ?? [facility] ?? [address] ?? [place] [address] ?? [phone] ?? [email or web address] ? CONTINUED ON NEXT PAGE ----- ------- Name: Brandon Lang ? Age/Sex: 49/F ? : 1975 Unit#: [id number] ?? Attend Dr: Jarrett Van MD ?Re06/13/24 ?Status: DEP SDC ? Location: HO.SSS ?Disch: ? ----- ------- SPEC : [id number] ? RECD: 06/13/24-1218 ? STATUS: ??SOUT ? REQ NUM: [id number] ? BAILEY: 06/13/24-1057 ? SUBM DR: Jarrett Van MD ? ENTERED: ??06/13/24-1224 ?SP TYPE: Surgical ? OTHR DR: Miranda Maravilla DO ? ORDERED: ??Gross Micro L3 ? ----- ------- Signed (signature on file) Felicita Lei 06/16/24 1533 ? ----- ------- ? END OF REPORT ? us Generic External Data Provider LAB CYTOLOGY CATHERINE BOOTHE Final Result [facility] [address] [place] [address] [phone] * BD DEXA Axial (06/06/2024 10:30 AM EST) Anatomical Region Laterality Modality Body Radiographic Maribel ging 06/06/2024 10:3 0 AM EST Narrative 06/09/2024 7:04 AM EST ? [facility] [place] ? [address] ?[place] [address] ? Mammography Report ? Signed ? Patient: Brandon Lang ?MR#: [id number] ? : 1975 ?Acct:[id number] ? Age/Sex: 49 / F ?ADM Date: 06/06/24 ? Loc: HO.MAMMO ? Attending Dr: Christiana Romero MD ? Ordering Physician: Christiana Romero MD ?Results: ? Date of Service: 06/06/24 ?Follow Up: ? Procedure(s): XR DEXA axial skeleton ?? Accession Number(s): [id number] ? cc: Miranda Maravilla DO; Christiana Romero MD ? EXAMINATION: ??DXA BONE DENSITY AXIAL ? HISTORY: ??Estrogen deficiency ? TECHNIQUE: [place]enda Dual energy absorptiometry (DEXA) ?? of the [...] the [employer]'s ?? [place] [facility] Metabolic Bone Disease, a World Health Organization (WHO) ?? Collaborating Center. ? Electronically signed by: ??Felix Corral MD ??06/09/2024 07:01 AM EST ?? RP ? Dictated By: ?Felix Corral MD ? Signed By: ?<Electronically signed by Felix Corral MD in OV> ?06/09/24 0701 ? DD/ 1030 ? TD/TT: 06/06/24 1050 ? Air Antisubmarine Officer: ? Procedure Note Blair, Image - 06/09/2024 [place] [facility]'[address] [place] [address] Mammography Report Signed Patient: Brandon Lang YMR#: [id number] : 1975Acct:[id number] Age/Sex: 49 / FADM Date: 06/06/24 Loc: HO.MAMMO Attending Dr: Christiana Romero MD Ordering Physician: Christiana Romeroesults: Date of Service: 06/06/24Follow Up: Procedure(s): XR DEXA axial skeleton Accession Number(s): [id number] cc: Miranda Maravilla DO; Christiana Romero MD EXAMINATION: DXA BONE DENSITY AXIAL HISTORY: Estrogen deficiency TECHNIQUE: [place]enda Dual energy absorptiometry (DEXA) of the lumbar [...] is a trademark of the [employer]'s [place] [facility] Metabolic Bone Disease, a World Health Organization (WHO) Collaborating Center. Electronically signed by: Felix Corral MD 06/09/2024 07:01 AM [facility] Dictated By: Felix Corral MD Signed By: <Electronically signed by Felix Corral MD in OV> 06/09/24 0701 DD/ 1030 TD/TT: 06/06/24 1050 Air Antisubmarine Officer: [facility] External Provider IMG DXA PROCEDURES Final Result * US Abdomen Complete (05/06/2024 1:03 PM EST) Anatomical Region Laterality Modality Abdomen Ultrasound 05/06/2024 1:03 PM EST Narrative 05/06/2024 1:05 PM EST ? [facility] ?[address] ?[place] [address] ? Ultrasound Report ? Signed ? Patient: Brandon Lang ?MR#: [id number] ? : 1975 ?Acct:[id number] ? Age/Sex: 49 / F ?ADM Date: 05/06/24 ? Loc: HO.US ? Attending Dr: Miranda Maravilla DO ? Ordering Physician: Miranda Maravilla DO ?? Date of Service: 05/06/24 ?? Procedure(s): US abdomen complete ?? Accession Number(s): [id number] ? cc: Miranda Maravilla DO; Jarrett Van [...] in OV> ? 05/06/24 1304 ? DD/ ? TD/TT: 05/06/24 1303 ? Air Antisubmarine Officer: ? Procedure Note Blair, Image - 05/06/2024 [place] [address] Ultrasound Report Signed Patient: Brandon Lang YMR#: [id number] : 1975Acct:[id number] Age/Sex: 49 / FADM Date: 05/06/24 Loc: HO.US Attending Dr: Miranda Maravilla DO Ordering Physician: Miranda Maravilla DO Date of Service: 05/06/24 Procedure(s): US abdomen complete Accession Number(s): [id number] cc: Miranda Maravilla DO; Jarrett Van MD [...] 05/06/24 1304 DD/ 1303 TD/TT: 05/06/24 1303 Air Antisubmarine Officer: us Miranda Maravilla DO IMG US PROCEDURES Final Resu lt * XR Chest 2 Views (04/30/2024 11:21 AM EST) Anatomical Region Laterality Modality Chest Radiographic Maribel ging 04/30/2024 11:2 1 AM EST Narrative 04/30/2024 1:31 PM EST ?[facility] ?[address] ?[place] [address] ?XRay Report ? Signed ? Patient: Brandon Lang ?MR#: [id number] ? : 1975 ?Acct:[id number] ? Age/Sex: 49 / F ?ADM Date: 04/30/24 ? Loc: HO.HHCX ? Attending Dr: Oliver Bates MD ? Ordering Physician: Oliver Bates MD ?? Date of Service: 04/30/24 ?? Procedure(s): XR chest 2V ?? Accession Number(s): [id number] ? cc: Oliver Bates MD ? EXAMINATION: [...] EST RP ? Dictated By: ?Guero Cartwright S ? Signed By: ?<Electronically signed by Guero S MD Gabbie in OV> ?04/30/24 1328 ? DD/ 1121 ? TD/TT: 04/30/24 1200 ? Air Antisubmarine Officer: MSM ? Procedure Note Mini Pinto - 04/30/[address] [address] XRay Report Signed Patient: Brandon Lang YMR#: [id number] : 1975Acct:[id number] Age/Sex: 49 / FADM Date: 04/30/24 Loc: HO.HHCX Attending Dr: Oliver Bates MD Ordering Physician: Oliver Bates MD Date of Service: 04/30/24 Procedure(s): XR chest 2V Accession Number(s): [id number] cc: Oliver Bates MD EXAMINATION: XR CHEST [...] 04/30/24 1328 DD/ 1121 TD/TT: 04/30/24 1200 Air Antisubmarine Officer: MSM Oliver Bates MD IMG XR PROCEDURES Final Result * POCT Rapid Influenza B ONTIVEROS ID NOW (04/29/2024 7:14 PM EST) Only the most recent of2 resultswithin the time period is included. Influenza B Negative Negative, Indeterminate [facility] QC Media Lot # [id number] [facility] Lot# Expiration Date [phone] [facility] Swab 04/29/2024 7:14 PM EST Oliver Bates MD POINT OF CARE TEST ENTER/EDIT OR DERABLES Final Result [facility] [address] [place] [address] [phone] * POCT Rapid Influenza A ONTIVEROS ID NOW (04/29/2024 7:14 PM EST) Only the most recent of2 resultswithin the time period is included. [facility] Influenza A Negative Negative, Indeterminate [facility] QC Media Lot # [id number] [facility] Lot# Expiration Date [facility] Swab 04/29/2024 7:14 PM EST Oliver Bates MD POINT OF CARE TEST ENTER/EDIT OR DERABLES Final Result Performing Organization Address [facility] Co de Phone Number [facility] [address] [place] [address] [phone] * POCT Rapid Covid-19 BinaxNOW (04/29/2024 7:14 PM EST) Only the most recent of2 resultswithin the time period is included. [facility] Rapid COVID Ag Negative QC Media Lot # [id number] Lot# Expiration Date Swab 04/29/2024 7:14 PM EST us Oliver Bates MD POINT OF CARE TEST ENTER/EDIT OR DERABLES Final Result * Respiratory Viral Panel PCR (04/29/2024 12:00 AM EST) [facility] Adenovirus PCR Not Detected Not Detect. [facility] Bordetella pertussis PCR Not Detected Not Detect. [facility] Comment:Interpret results wi th caution. If B. pertussis isspecifically suspected, additional testing using analternate method is recommended. Bordetella parapertussis PCR Not Detected Not Detect. [facility] Chlamydia pneumoniae PCR Not Detected Not Detect. [facility] Coronavirus 229E PCR Not Detected Not Detect. [facility] Coronavirus HKU1 PCR Not Detected Not Detect. [facility] Coronavirus NL63 PCR Not Detected Not Detect. [facility] Coronavirus OC43 PCR Not Detected Not Detect. [facility] SARS-CoV-2 PCR Not Detected Not Detect. [facility] Comment:SARS-CoV-2 not detec michael by real-time RT-PCR.Note: If clinical suspicion for Sars-CoV-2 is high, continueto maintain precautions and consider repeat testing.Test results should be interpreted in the context ofclinical findings and other laboratory data.Rare polymorphisms exist that could lead to false-negativeor false-positive results. If results do not match theclinical findings, additional testing should be considered.Results reported to [facility].This test has been authorized by the FDA under the EmergencyUse Authorization (EUA) for use by authorized laboratories. Influenza A PCR Not Detected Not Detect. [facility] Influenza B PCR Not Detected Not Detect. [facility] Human metapneumovirus PCR Not Detected Not Detect. [facility] Rhino/Enterovirus PCR Not Detected Not Detect. [facility] Mycoplasma pneumoniae PCR Not Detected Not Detect. [facility] Parainfluenza 1 PCR Not Detected Not Detect. [facility] Parainfluenza 2 PCR Not Detected Not Detect. [facility] Parainfluenza 3 PCR Not Detected Not Detect. [facility] Parainfluenza 4 PCR Not Detected Not Detect. [facility] RSV PCR Not Detected Not Detect. [facility] Resp Panel NA Note See Note [facility] Comment:All results must be [...] assay is performed by Multiplexed PCR, utilizing theBiofire Film Array. 04/29/2024 04/29/2024 Oliver Bates MD LAB BLOOD ORDERABLES Final Resul t Performing Organization Address City/[facility]/ZIP Co de Phone Number [facility] [address] [place] [phone] * Dermatopathology Report (04/18/2024 2:57 PM EST) Historical Provider LAB BLOOD ORDERABLES Barby l Result * (ABNORMAL) Lipid Panel, Standard (04/14/2024 12:38 PM EST) Triglycerides 82 <150 mg/dL [facility] Comment:Desirable Triglyceri de: less than 150 mg/dLBorderline High Triglyceride 150-199 mg/dLHigh Triglyceride: 200-499 mg/dLVery High Triglyceride: greater than or equal to 5OO mg/dL Cholesterol 199 <200 mg/dL [facility] Comment:Desirable Cholestero l: less than 200 mg/dLBorderline High Cholesterol: 200-239 mg/dLHigh Cholesterol: greater than 239 mg/dL LDL Cholesterol Calculated 104(H) <100 mg/dL [facility] Comment:Desirable LDL: less than 100 mg/dLNear Optimal/Above Optimal LDL: 110- 129 mg/dLBorderline High LDL: 130-159 mg/dLHigh LDL: 160-189 mg/dLVery High LDL: greater than or equal to 190 mg/dL HDL Cholesterol 79 >40 mg/dL [facility] Comment:Desirable HDL: great er than 40 mg/dL Note: This HDL assay may give artificially low results in patients with liver disease. Blood Venous blood specimen / Unknown 04/14/2024 12:38 PM EST 04/14/2024 1:44 PM EST Miranda Maravilla DO LAB BLOOD ORDERABLES Final R esult Performing Organization Address City/[facility]/ZIP Co de Phone Number [facility] [address] [place] [address] [phone] * (ABNORMAL) Cologuard?? colon cancer screening (03/04/2023 11:20 PM EST) Cologuard Result Positive( A) Negative 03/12/2023 10:35 AM EST [facility] (CLIA #:[id number]) Comment: POSITIVE TEST RESULT. A positive Cologuard [...] (Elliot Dye al, N Engl J Med 2014;370(14):8484-3181.) Cologuard may produce a false negative or false positive result (no colorectal cancer or precancerous polyp present at colonoscopy follow up). A negative Cologuard test result does not guarantee the absence of CRC or advanced adenoma (pre-cancer). The current Cologuard screening interval is every 3 years. ([place] [employer] and U.S. Multi-Society Task Force). Cologuard performance data in a 10,000 patient pivotal study using colonoscopy as the reference method can be accessed at the following location: www.[employer]/results. Additional description of the Cologuard test process, warnings and precautions can be found at [email or web address]. Stool specimen (specimen) 03/04/2023 11:20 PM EST 03/06/2023 5:06 PM EST Miranda Maravilla DO LAB MOLECULAR DIAGNOSTICS OR DERABLES Final Result [facility] (CLIA #:[id number]) Ashanti Porter [place] [address], * HEPATITIS C AB W/REFL TO HCV RNA, QN, PCR (10/24/2019 9:16 AM EDT) HEPATITIS C ANTIBODY NON-REACT QUIANA NON-REACT QU[facility]NA [facility] INDEX 0.02 <1.00 [facility] Comment: ?? HCV antibody was non-reactive. There is no laboratory ?? evidence of HCV infection. ?? In most cases, no further action is required. However, if recent HCV exposure is suspected, a test for HCV RNA (test code 19645) is suggested. ?? For additional information please refer to http://[facility].[employer]arden/faq/GCN46g6 (This link is being provided for informational/ educational purposes only.) ?? HEPATITIS C ANTIBODY NON-REACT QUIANA NON-REACT [facility] INDEX 0.02 <1.00 [facility] Comment: ?? HCV antibody was non-reactive. There is no laboratory ?? evidence of HCV infection. ?? In most cases, no further action is required. However, if recent HCV exposure is suspected, a test for HCV RNA (test code 44070) is suggested. ?? For additional information please refer to http://[facility].[employer]/faq/TVF62i5 (This link is being provided for informational/ educational purposes only.) ?? HEPATITIS C ANTIBODY NON-REACT QUIANA NON-REACT [facility] INDEX 0.02 <1.00 [facility] Comment: ?? HCV antibody was non-reactive. There is no laboratory ?? evidence of HCV infection. ?? In most cases, no further action is required. However, if recent HCV exposure is suspected, a test for HCV RNA (test code 55509) is suggested. ?? For additional information please refer to http://[facility].[employer]/faq/GDU38z8 (This link is being provided for informational/ educational purposes only.) ?? 10/24/2019 9:16 AM EDT Miranda Maravilla DO HISTORICAL/NON ORDERABLE LAB S Final Result [facility] [address] [place] [address], * HIV 1/2 ANTIGEN/ANTIBODY,FOURTH GENERATION W/RFL (10/24/2019 [...] ? For additional information please refer to http://[facility].[employer]/faq/WJC129 (This link is being provided for informational/ educational purposes only.) ? The performance of this assay has not been clinically validated in patients less than 2 years old. ?? HIV-1/2 ANTIGEN AND ANTIBODIES, 4TH GENERATION W/ REFLEX NON-REACT QUIANA NON-REACT [facility] Comment: HIV-1 antigen and HIV-1/HIV-2 [...] ? For additional information please refer to http://ITC/faq/TEE779 (This link is being provided for informational/ educational purposes only.) ? The performance of this assay has not been clinically validated in patients less than 2 years old. ?? HIV-1/2 ANTIGEN AND ANTIBODIES, 4TH GENERATION W/ REFLEX NON-REACT QUIANA NON-REACT QUIANA [facility] Comment: HIV-1 antigen and HIV-1/HIV-2 [...] ? For additional information please refer to http://ITC/faq/IKB757 (This link is being provided for informational/ educational purposes only.) ? The performance of this assay has not been clinically validated in patients less than 2 years old. ?? 10/24/2019 9:16 AM EDT us Miranda Maravilla DO LAB BLOOD ORDERABLES Final R esult [facility] [address] from Last 3 Months or Most Recently Relevant to Health Maintenance Insurance [facility] STANDARD MEDICARE Advance Directives Documents on File Type Date Recorded Patient Installations Inspector Expl anation Advance Directives and Livin g Will 06/13/2023 3:52 PM HCP Form Care Teams Network Manager Relationship Specialty Start Date End Date Miranda Maravilla DO [address] [place] [address] PCP - General Family Medicine 09/26/19
--- OUTSIDE RECORDS SUMMARY | 2024-07-14 14:52 | XMS_ITS | Encounter Summary ---
Author Organization [employer] Address [address] [facility] [address] [place] [address] Care Team Providers Care Movie Writer Name Role Phone Miranda Maravilla DO Primary Care Provider [phone] Encounter Details Date Type Department Care Team ([facility] Contact Info) Description 04/05/2022 Telephone [facility] MEDICINE [address] [place] [phone] Miranda Maravilla DO [address] [place], [place] [phone] Social History Tobacco Use Types Packs/Day Years [...] Encounters Date Type Department Care Team ([facility] Contact Info) Description 07/30/2024 9:30 AM EDT Office Visit [facility] MEDICINE [address] [place] [phone] Miranda Maravilla DO [address] [place] [address] documented as of this encounter Visit Diagnoses Not on filedocumented in this encounter Additional Health Concerns Assessment Noted Time PHQ-9 Depression Total Score: 0 03/28/20 22 10:45 AM EST documented as of this encounter Care Teams Movie Writer Relationship Specialty Start Date End Date Miranda Maravilla DO [address] [place] [address] PCP - General Family Medicine 09/26/19 documented as of this encounter
--- OUTSIDE RECORDS SUMMARY | 2024-07-14 14:52 | XMS_ITS | Encounter Summary ---
Author Organization [employer] Address [address] [facility] [address] [place] [address] Care Team Providers Care Molded Rubber Goods Cutter Name Role Phone Miranda Maravilla DO Primary Care Provider + [phone] Reason for Visit * Reason Comments Med Refill Encounter Details Date Type Department Care Team ([facility] Contact Info) Description 05/18/2022 Refill [facility] MEDICINE [address] [place] [address] [phone] Miranda Maravilla DO [address] [place], [place] [phone] Social History Tobacco Use Types Packs/Day Years [...] Upcoming Encounters Date Type Department Care Team ([facility] Contact Info) Description 07/30/2024 9:30 AM EDT Office Visit [facility] MEDICINE [address] [place] [phone] Miranda Maravilla DO [address] [place] [address] documented as of this encounter Visit Diagnoses Not on filedocumented in this encounter Additional Health Concerns Assessment Noted Time PHQ-9 Depression Total Score: 0 05/09/19 23 9:16 AM EST documented as of this encounter Care Teams Molded Rubber Goods Cutter Relationship Specialty Start Date End Date Miranda Maravilla DO [address] [place] [address] PCP - General Family Medicine 09/26/19 documented as of this encounter
--- OUTSIDE RECORDS SUMMARY | 2024-07-14 14:52 | XMS_ITS | Encounter Summary ---
Author Organization [employer] Address [address] [facility] [address] [place] [address] Care Team Providers Care Closing Coordinator Name Role Phone Miranda Maravilla DO Primary Care Provider + [phone] Reason for Visit * Reason Comments Med Refill Encounter Details Date Type Department Care Team ([facility] st Contact Info) Description 06/01/2024 Refill [facility] [address] [place] [address] Miranda Maravilla DO [address] [place], [place] [phone] Social History Tobacco Use Types Packs/Day Years [...] Description 07/30/2024 9:30 AM EDT Office Visit [facility] [address] [place] [address] Miranda Maravilla DO [address] [place] [address] documented as of this encounter Visit Diagnoses Not on filedocumented in this encounter Additional Health Concerns Assessment Noted Time PHQ-9 Depression Total Score: 7 08/20/19 24 10:35 AM EDT documented as of this encounter Care Teams Closing Coordinator Relationship Specialty Start Date End Date Miranda Maravilla DO [address] [place] [address] PCP - General Family Medicine 09/26/19 documented as of this encounter
--- OUTSIDE RECORDS SUMMARY | 2024-07-14 14:52 | XMS_ITS | Encounter Summary ---
Author Organization [employer] Address [address] [facility] 7t [place] [address] Care Team Providers Care Threading Machine Setter Name Role Phone Miranda Maravilla DO Primary Care Provider + [phone] Encounter Details Date Type Department Care Team (Late st Contact Info) Description 07/14/2024 Orders Only [facility] External Provider, [facility] Social History Tobacco Use Types [...] Visit [facility] [address] [facility] [place] [address] Miranda Maravilla, DO [address] [facility] [place] [address] documented as of this encounter Procedures Procedure Name Priority Date/Time Associated Diagnosis Comments BI MAMMOGRAM DIAGNOSTIC TOMOSYNTHESIS BILATERAL Routine 07/14/2024 1:00 PM EDT documented in this encounter Results * BI Mammogram Diagnostic Tomosynthesis Bilateral (07/14/2024 1:00 PM EDT) Anatomical Region Laterality Modality Breast Bilateral Mammography 07/14/2024 1:00 PM EDT Narrative 07/14/2024 1:58 PM EDT ? [facility] [place] ? [address] [facility] [address] ?[place] [address] ?[phone] ? Mammography Report ? Signed ? Patient: Rickey,Brandon Y ?MR#: [id number] ? : 1975 ?Acct:[id number] ? Age/Sex: 49 / F ?ADM Date: 04/07/25 ? Loc: HO.MAMMO ? Attending : Jarrett Van MD ? Ordering Physician: Rehan,Jarrett GALVAN ?Results: 2Benig ?? n Findings ? Date of Service: 07/14/24 ?Follow Up: 1 Year From Orig ?? inal Mammogram ? Procedure(s): MM tomosynthesis diagnostic BI ?? Accession Number(s): [id number] ? cc: Miranda Maravilla DO; Jarrett Van [...] DD/ 1300 ? TD/TT: 07/14/24 1345 ? Cloud Infrastructure Architect: ? Procedure Note Donotuseinterpreter, Image - 07/14/2024 [facility] [address] [place] [address] Mammography Report Signed Patient: Brandon Lang YMR#: [id number] : 1975Acct:[id number] Age/Sex: 49 / FADM Date: 07/14/24 Loc: HO.MAMMO Attending Dr: Jarrett Van MD Ordering Physician: Jarrett Van MDResults: 2Benig n Findings Date of Service: 07/14/24Follow Up: 1 Year From Orig inal Mammogram Procedure(s): MM tomosynthesis diagnostic BI Accession Number(s): [id number] cc: Miranda Maravilla DO; Jarrett Van MD [...] Shirley Miramontes DO 07/14/2024 01:55 PM EDT Dictated By: Shirley Miramontes DO Signed By: <Electronically signed by Shirley Miramontes DO in OV> 07/14/24 1355 DD/ 1300 TD/TT: 07/14/24 1345 Cloud Infrastructure Architect: [facility] External Provider IMG BI PROCEDURES Final Result documented in this encounter Visit Diagnoses Not on filedocumented in this encounter Additional Health Concerns Assessment Noted Time PHQ-9 Depression Total Score: 7 08/20/19 24 10:35 AM EDT documented as of this encounter Care Teams Threading Machine Setter Relationship Specialty Start Date End Date Miranda Maravilla DO [address] [place] [address] PCP - General Family Medicine 09/26/19 documented as of this encounter
== END 2024-07-14 12:36 | disposition home or self-care (01) ==
LOC: HO.MAMMO 12:35
PROVIDERS: Absent Provider Internal Medicine Medical Oncology; PCP Family Medicine; Visit Provider Surgery
DX: C50.012 Malignant neoplasm of nipple and areola, left female breast (principal); C77.9 Secondary and unspecified malignant neoplasm of lymph node, unspecified; Z98.890 Other specified postprocedural states
CPT/HCPCS: 77062; 77066

== ENCOUNTER → 2024-07-14 13:00 | Outpatient (BNV) | payer MEDICARE, MEDICAID, SELFPAY | PROVIDERS: Absent Provider Internal Medicine Medical Oncology; PCP Family Medicine; Visit Provider Internal Medicine | DX: C50.912 Malignant neoplasm of unspecified site of left female breast (principal) | CPT/HCPCS: 77066; G0279 ==

== ENCOUNTER 2024-07-21 10:05 | Outpatient (AMB) | payer MEDICARE, MEDICAID, SELFPAY ==
--- NOTE | 2024-07-21 10:10 | MHC.OFFVIS ---
Vital Signs 07/21/24 10:13 Height 5 ft 2 in Weight 233 lb 3.985 oz BMI 42.7 BP 130/72 Blood Pressure Location Rt brachial Position Sitting Pulse 68 Intake Visit Reasons: after mammogram exam by Rehan Intake Note: Patient here to for breast exam. Recent mammogram 07-14-2024. Patient c/o: denies breast tendernes, rash, nipple discharge. Satellite Installation Technician Required: No Accompanied by: mom and brother Allergies No Known Allergies [No Known Allergies*] Allergy (Unknown, Verified 07/21/24 10:12) HPI Comments Details: Patient presents for follow-up breast exam status post recent mammogram. The latter of which was within normal limits. One year mammogram recommended. Patient was very well known to me. Status post recent laparoscopic cholecystectomy. All things considered, patient presents here with her brother and mother and they stay she is doing well [facility] Medical History Menopause Breast mass, left Hospital discharge follow-up Right leg swelling Pulmonary hypertension Acute on chronic respiratory failure with hypoxia and hypercapnia Asthma with exacerbation Pneumonia Status post repair of fracture of orbit COVID Cough Chest pain Sleep apnea Intellectual disability Morbid obesity Intellectual disability Colon cancer screening GEORGE (obstructive sleep apnea) Oxygen desaturation during sleep Asthma Surgical History History of lumpectomy of left breast (12/07/23) Encounter for insertion of tunneled central venous catheter (CVC) with port Cancer of left breast, stage 3 Status post spinal surgery (~1994) History of open reduction and internal fixation (ORIF) procedure History of esophagogastroduodenoscopy (EGD) Family History Mother Diabetes Hypertension Father Hypertension Maternal Uncle Throat cancer Social History Household Members: Spouse and Children Household Members Other:: mother Housing: House Are you a primary pediatric acute care unit nurse to a significant other at home: No Do you presently have visiting nurse or other home services: Yes (FURNITURE ASSEMBLER) Alcohol intake: never Comment: counts correct Patient Tobacco Use Status: Never used Tobacco e-Cigarette/Vaping Use: Never Used Advance Directives Date on File: 08/14/18 service: No Current occupational status: disabled Physical Exam Vital Signs: Last Vital Signs Pulse 68 07/21/24 10:13 BP 130/72 07/21/24 10:13 BMI result Body Mass Index 42.7 Chest Other: Bilateral breast exam within normal limits. No evidence of any mass, discharge, adenopathy or skin changes bilaterally. Patient was status post central left breast lumpectomy well healed. Assessment & Plan Assessment & Plan (1) Screening breast examination: Code(s): Z12.39 - Encounter for other screening for malignant neoplasm of breast Category: Surgical Plan Patient was see me in 1 year's time preceded by a mammogram. Any questions or issues, patient was in her family been instructed to contact me other will otherwise see me as directed. All questions answered. Coding Level of Care Code Est Pt Level 4 (02968) Diagnoses Screening breast examination Z12.39
[2024-07-21 10:13] VITALS: BP 130/72; PULSE 68; BMI 42.7
--- OUTSIDE RECORDS SUMMARY | 2024-07-21 11:26 | XMS_ITS | Encounter Summary ---
Author Organization [employer] Address [address] [facility] [address] [address] Care Team Providers Care Geospatial Program Management Officer Name Role Phone Miranda Maravilla DO Primary Care Provider + [phone] Reason for Visit * Reason Comments Med Refill Encounter Details Date Type Department Care Team ([facility] st Contact Info) Description 07/17/2024 Refill [facility] MEDICINE [address] [place] [address] Miranda Maravilla DO [address] [place], [place] [phone] Muscle spasm Social History Tobacco Use Types Packs/Day Years [...] 07/30/2024 9:30 AM EDT Office Visit [facility] MEDICINE [address] [place] [address] Miranda Maravilla DO [address] [place] [address] documented as of this encounter Visit Diagnoses Diagnosis Muscle spasm Spasm of muscle documented in this encounter Additional Health Concerns Assessment Noted Time PHQ-9 Depression Total Score: 7 08/20/19 24 10:35 AM EDT documented as of this encounter Care Teams Geospatial Program Management Officer Relationship Specialty Start Date End Date Miranda Maravilla DO [address] [place] [address] PCP - General Family Medicine 09/26/19 documented as of this encounter
--- OUTSIDE RECORDS SUMMARY | 2024-07-21 11:26 | XMS_ITS | Encounter Summary ---
Author Organization [employer] Address [address] [facility] [address] [place] [address] Care Team Providers Care Decontamination Technician Name Role Phone Miranda Maravilla DO Primary Care Provider + [phone] Reason for Visit * Reason Comments Med Refill Encounter Details Date Type Department Care Team ([facility] Contact Info) Description 07/22/2022 Refill [facility] MEDICINE [address] [place] [address] [phone] Miranda Maravilla DO [address] [place], [place] [phone] Social History Tobacco Use Types Packs/Day Years [...] Description 07/30/2024 9:30 AM EDT Office Visit [facility] MEDICINE [address] [place] [address] Miranda Maravilla DO [address] [place] [address] documented as of this encounter Visit Diagnoses Not on filedocumented in this encounter Additional Health Concerns Assessment Noted Time PHQ-9 Depression Total Score: 0 05/09/19 23 9:16 AM EST documented as of this encounter Care Teams Decontamination Technician Relationship Specialty Start Date End Date Miranda Maravilla DO [address] [place] [address] PCP - General Family Medicine 09/26/19 documented as of this encounter
--- OUTSIDE RECORDS SUMMARY | 2024-07-21 11:26 | XMS_ITS | Encounter Summary ---
Author Organization [employer] Address [address] [facility] [address] [address] Care Team Providers Care Grill Attendant Name Role Phone Miranda Maravilla DO Primary Care Provider + [phone] Reason for Visit * Reason Comments Med Refill Encounter Details Date Type Department Care Team ([facility] Contact Info) Description 05/18/2022 Refill [facility] MEDICINE [address] [place] [address] [phone] Miranda Maravilla DO [address] [place], [place] [phone] Social History Tobacco Use Types Packs/Day Years [...] Upcoming Encounters Date Type Department Care Team ([facility] Contact Info) Description 07/30/2024 9:30 AM EDT Office Visit [facility] MEDICINE [address] [place] [address] Miranda Maravilla DO [address] [place] [address] documented as of this encounter Visit Diagnoses Not on filedocumented in this encounter Additional Health Concerns Assessment Noted Time PHQ-9 Depression Total Score: 0 05/09/19 23 9:16 AM EST documented as of this encounter Care Teams Grill Attendant Relationship Specialty Start Date End Date Miranda Maravilla DO [address] [place] [address] PCP - General Family Medicine 09/26/19 documented as of this encounter
--- OUTSIDE RECORDS SUMMARY | 2024-07-21 11:26 | XMS_ITS | Encounter Summary ---
Author Organization [email or web address] Address [address] [facility] 7t [place] [address] Care Team Providers Care Vice President Media Relations Name Role Phone Miranda Maravilla DO Primary Care Provider + [phone] Reason for Visit * Reason Comments Med Refill Encounter Details Date Type Department Care Team ([facility] st Contact Info) Description 06/11/2023 Refill [facility] MEDICINE [address] [place] [address] Miranda Maravilla DO [address] [place], [place] [phone] Pain Social History Tobacco Use Types Packs/Day [...] the past 12 months, has t he [place], gas, oil or water company threatened to [...] Description 07/30/2024 9:30 AM EDT Office Visit [facility] MEDICINE [address] [place] [address] Miranda Maravilla DO [address] [place] [address] documented as of this encounter Visit Diagnoses Diagnosis Pain Generalized pain documented in this encounter Additional Health Concerns Assessment Noted Time PHQ-9 Depression Total Score: 0 05/09/19 23 9:16 AM EST documented as of this encounter Care Teams Vice President Media Relations Relationship Specialty Start Date End Date Miranda Maravilla DO [address] [place] [address] PCP - General Family Medicine 09/26/19 documented as of this encounter
--- OUTSIDE RECORDS SUMMARY | 2024-07-21 11:26 | XMS_ITS | Encounter Summary ---
Author Organization [employer] Address [address] [facility] 7t [place] [address] Care Team Providers Care Rn Mds Coordinator Name Role Phone Miranda Maravilla Primary Care Provider + [phone] Encounter Details Date Type Department Care Team (Late st Contact Info) Description 04/25/2024 Orders Only [facility] [address] [place], [place] [phone] Provider, MD Jo Ann Social History Tobacco [...] 9:30 AM EDT Office Visit [facility] MEDICINE [address] [place] [address] Miranda Maravilla DO [address] [place] [address] documented as of this encounter Procedures Procedure [...] as of this encounter Care Teams Rn Mds Coordinator Relationship Specialty Start Date End Date Miranda Maravilla DO [address] [place] [address] PCP - General Family Medicine 09/26/19 documented as of this encounter
--- OUTSIDE RECORDS SUMMARY | 2024-07-21 11:26 | XMS_ITS | Clinical Summary ---
Author Organization [employer] Address [address] [facility] 7[address] [place] [address] Care Team Providers Care Cell Efficiency Supervisor Name Role Phone Miranda Maravilla DO Primary Care Provider + [phone] Allergies No known active allergies Medications ARIPiprazole [...] and at bedtime (foot rash). 28 g Active ipratropium-albute rol (Duo-Neb) 0.5-2.5 mg/3 mL [...] per day. 30 tablet 024 2024 Active omeprazole (PriLOSEC) [address] capsule [...] AT BEDTIME NEEDED FOR HEARTBURN 150 tablet 025 Active Eye Itch Relief 0.035 % [...] DAILY NEEDED 180 capsule 3 025 Active baclofen (Lioresal) 10 MG tabletIndications: Muscle spasm TAKE 1/2 TO 1 TABLET BY MOUTH EVERY DAY AT BEDTIME NEEDED FOR MUSCLE SPASMS 30 tablet 3 025 Active albuterol (ProAir HFA) 108 [...] itching). 10 mL 2 024 2024 Discontinued baclofen (Lioresal) 10 MG tabletIndications: Muscle spasm TAKE 1/2 TO 1 TABLET BY MOUTH EVERY DAY AT BEDTIME NEEDED FOR MUSCLE SPASMS 30 tablet 3 024 2024 Discontinued naproxen (Naprosyn) 500 MG [...] 03/18/2022 03/23/2022 Extreme obesity with alveolar hypoventilation 04/12/1903/23/2022 Encounters Date Type Department Care Team Description 07/21/2024 Patient Outreach [facility] [address] [place] [address] Miranda Maravilla DO Pre-visit Planning (SDOH screening negative and tobacco screening negative) 07/17/2024 Refill [facility] [address] [place] [address] Miranda Maravilla DO Muscle spasm 07/14/2024 Orders Only [facility] External Provider, [facility] 06/30/2024 Refill [facility] [address] [place] [address] Miranda Maravilla DO Chronic constipation 06/25/2024 Refill [facility] [address] [facility] [place] [address] Madhu Anthony MD Moderate persistent asthma without complication; Obstructive sleep apnea syndrome; Obesity hypoventilation syndrome (CMS/HCC) 06/24/2024 Refill [facility] [address] [place] [address] Miranda Maravilla DO Pain 06/21/2024 Refill [facility] [address] [facility] [place] [address] Miranda Maravilla DO 06/18/2024 Telephone [facility] [address] [facility] [place] [address] Missy Gardner RN Forms/questionnaires 06/13/2024 Orders Only GENERIC EXTERNAL DATA DEPARTMENT Provider, Generic External Data 06/09/2024 Refill [facility] [address] [facility] [place] [address] Miranda Maravilla DO 06/06/2024 Orders Only [facility] External Provider, [facility] 06/01/2024 Refill [facility] [address] [facility] [place] [address] Miranda Maravilla DO 05/28/2024 Telephone [facility] [address] [place] [address] Miranda Maravilla DO Recall Appt. 05/28/2024 Travel 05/17/2024 Refill [facility] [address] [place] [address] Miranda Maravilla DO 04/29/2024 6:20 PM EST Office Visit [facility] [address] [address] Oliver Bates MD Viral URI 04/25/2024 Orders Only [place] [facility] [address] [place] [address] ProviderJo Ann MD 04/22/2024 11:00 AM EST [facility] [address] [address] Madhu Anthony MD Moderate persistent asthma with acute exacerbation (Primary Dx); Viral URI from Last 3 Months Immunizations Name Administration [...] Recorded Patient Health Questionnaire-2 Score 2 08/20/2023 Internet Access Answer Date Recorded Internet Access Q1 Yes 07/21/2024 Internet Access Q2 Not on file 07/21/2024 Comments Unknown Sex and Gender Information Value [...] 9:30 AM EDT Office Visit [facility] [address] [place] [address] Miranda Maravilla DO [address] [place] [address] Health Maintenance Due Date Last Done Comments [...] exists Depression Screening 08/19/2024 08/20/2023, 08/20/19 24 Zoster Vaccines (1 of 2) 2025 Alcohol/Substance Use Screening 04/14/2025 04/14/2024 Tobacco Screening 04/29/2025 04/29/2024 Mammogram 07/14/2025 07/14/2024, 0808/2023, 09/13/2023, Additional history exists SDOH Screening 07/21/2025 07/21/2024 Colorectal Cancer Screening 03/04/2026 FIT DNA/Cologuard 03/04/2026 [...] Routine 04/22/2024 12:00 PM EST Viral URI LIPID PANEL, STANDARD Routine 04/14/2024 12:38 PM [...] EDT Narrative 07/14/2024 1:58 PM EDT ? [facility] ? [address] ?[place] [address] ?[phone] ? Mammography Report ? Signed ? Patient: Rickey,Brandon Y ?MR#: [id number] ? : 1975 ?Acct:[id number] ? Age/Sex: 49 / F ?ADM Date: 04//25 ? Loc: HO.MAMMO ? Attending Dr: Jarrett Van MD ? Ordering Physician: Jarrett Van MD ?Results: 2Benig ?? n Findings ? Date of Service: 07/14/24 ?Follow Up: 1 Year From Orig ?? inal Mammogram ? Procedure(s): MM tomosynthesis diagnostic BI ?? Accession Number(s): [id number] ? cc: Miranda Maravilla DO; Jarrett Van [...] ??Shirley Miramontes DO ??07/14/2024 01:55 PM EDT ? Dictated By: ?Shirley Miramontes DO ? Signed By: ?<Electronically signed by Shirley Miramontes, DO in OV> ? 07/14/24 1355 ? DD/ 1300 ? TD/TT: 07/14/24 1345 ? Flatware Maker: ? Procedure Note Donmichelleter, Image - 07/14/2024 [facility] [address] [place] [address] Mammography Report Signed Patient: Brandon Lang YMR#: [id number] : 1975Acct:[id number] Age/Sex: 49 / FADM Date: 07/14/24 Loc: HO.MAMMO Attending Dr: Jarrett Van MD Ordering Physician: Jarrett Van MDResults: 2Benig n Findings Date of Service: 07/14/24Follow Up: 1 Year From Orig ina Mammogram Procedure(s): MM tomosynthesis diagnostic BI Accession Number(s): [id number] cc: Miranda Maravilla DO; Jarrett Van MD [...] 07/14/24 1355 DD/ 1300 TD/TT: 07/14/24 1345 Flatware Maker: [facility] External Provider IMG BI PROCEDURES Final Result * Gross and Microscopic Level 3 (06/13/2024 10:58 AM EST) 06/13/2024 10:5 8 AM EST 06/13/2024 12:19 PM EST [facility] - 06/16/2024 3:33 PM EDT ----- ------- Name: Brandon Lang ? Age/Sex: 49/F ? : 1975 Unit#: [id number] ?? Attend Dr: Jarrett Van MD ?Re06/13/24 ?Status: DEP SDC ? Location: HO.SSS ?Disch: ? ----- ------- SPEC : [id number] ? RECD: 06/13/24 ? STATUS: ??SOUT ? REQ NUM: [id number] ? BAILEY: 06/13/24 ? SUBM DR: Jarrett [...] wall measures 0.2 cm in average thickness. ??([facility]) Copies To: ?? Miranda Maravilla DO ?? [facility] ?? [address] ?? [place] [address] ?? [phone] ?? Jarrett Van MD ?? [facility] ?? [address] ?? [place] ?? [phone] ?? [email or web address] ? CONTINUED ON NEXT PAGE ----- ------- Name: Brandon Lang ? Age/Sex: 49/F ? : 1975 Unit#: [id number] ?? Attend Dr: Jarrett Van MD ?Re06/13/24 ?Status: DEP SDC ? Location: HO.SSS ?Disch: ? ----- ------- SPEC : [id number] ? RECD: 06/13/24-1218 ? STATUS: ??SOUT ? REQ NUM: [id number] ? BAILEY: 06/13/24-1057 ? SUBM DR: Jarrett Van MD ? ENTERED: ??06/13/24-5 ?SP TYPE: Surgical ? OTHR : Miranda Maravilla DO ? ORDERED: ??Gross Micro L3 ? ----- ------- Signed (signature on file) Felicita Lei 06/16/24 1903 ? ----- ------- ? END OF REPORT ? us Generic External Data Provider LAB CYTOLOGY ORDE TL Final Result [facility] [address] [facility] [place] [address] [phone] * BD DEXA Axial (06/06/2024 10:30 AM EST) Anatomical Region Laterality Modality Body Radiographic Maribel ging 06/06/2024 10:3 0 AM EST Narrative 06/09/2024 7:04 AM EST ? [facility] [place] ? [address] ?[place] [address] ? Mammography Report ? Signed ? Patient: Rickey,Brandon Y ?MR#: [id number] ? : 1975 ?Acct:[id number] ? Age/Sex: 49 / F ?ADM Date: /28/25 ? Loc: HO.MAMMO ? Attending Dr: Christiana Romero MD ? Ordering Physician: Christiana Romero MD ?Results: ? Date of Service: /28/25 ?Follow Up: ? Procedure(s): XR DEXA axial skeleton ?? Accession Number(s): [id number] ? cc: Miranda Maravilla DO; Christiana Romero MD ? EXAMINATION: ??DXA BONE DENSITY AXIAL ? HISTORY: ??Estrogen deficiency ? TECHNIQUE: SoundCure Dual energy absorptiometry (DEXA) ?? of the [...] is a trademark of the [employer]'s ?? [place] for Metabolic Bone Disease, a World Health Organization (WHO) ?? Collaborating Center. ? Electronically signed by: ??Felix Corral MD ??06/09/2024 07:01 AM EST ?? RP ? Dictated By: ?Felix Corral MD ? Signed By: ?<Electronically signed by Felix Corral MD in OV> ?06/09/24 0701 ? DD/ ? TD/TT: 06/06/24 1050 ? Flatware Maker: ? Procedure Note Donotuseinterpreter, Image - 06/09/2024 [facility] [address] [place] [address] Mammography Report Signed Patient: Brandon Lang YMR#: [id number] : 1975Acct:[id number] Age/Sex: 49 / FADM Date: 06/06/24 Loc: HO.MAMMO Attending Dr: Christiana Romero MD Ordering Physician: Christiana Romeroesults: Date of Service: 06/06/24Follow Up: Procedure(s): XR DEXA axial skeleton Accession Number(s): [id number] cc: Miranda Maravilla DO; Christiana Romero MD EXAMINATION: DXA BONE DENSITY AXIAL HISTORY: Estrogen deficiency TECHNIQUE: SoundCure Dual energy absorptiometry (DEXA) of the lumbar [...] of the [employer] [place] for Metabolic [employer] Disease, a World Health Organization (WHO) Collaborating Center. Electronically signed by: Felix Corral MD 06/09/2024 07:01 AM EST RP Dictated By: Felix Corral MD Signed By: <Electronically signed by Felix Corral MD in OV> 06/09/24 0701 DD/ 1030 TD/TT: 06/06/24 1050 Flatware Maker: [facility] External Provider IMG DXA PROCEDURES Final Result * US Abdomen Complete (05/06/2024 1:03 PM EST) Anatomical Region Laterality Modality Abdomen Ultrasound 05/06/2024 1:03 PM EST Narrative 05/06/2024 1:05 PM EST ? [facility] ?[address] ?[place] [address] ? Ultrasound Report ? Signed ? Patient: Brandon Lang Y ?MR#: [id number] ? : 1975 ?Acct:[id number] ? Age/Sex: 49 / F ?ADM Date: 05/06/24 ? Loc: HO.US ? Attending Dr: Miranda Maravilla DO ? Ordering Physician: Miranda Maravilla DO ?? Date of Service: 05/06/24 ?? Procedure(s): US abdomen complete ?? Accession Number(s): [id number] ? cc: Miranda Maravilla DO; Jarrett Van [...] DD/ 1303 ? TD/TT: 05/06/24 1303 ? Flatware Maker: ? Procedure Note Donkieshanadirater, Image - 05/06/2024 [place] [address] Ultrasound Report Signed Patient: Brandon Lang YMR#: [id number] : 1975Acct:[id number] Age/Sex: 49 / FADM Date: 05/06/24 Loc: HO.US Attending Dr: Miranda Maravilla DO Ordering Physician: Miranda Maravilla DO Date of Service: 05/06/24 Procedure(s): US abdomen complete Accession Number(s): [id number] cc: Miranda Maravilla DO; Jarrett Van MD [...] 05/06/24 1304 DD/ 1303 TD/TT: 05/06/24 1303 Flatware Maker: us Miranda Maravilla DO IMG US PROCEDURES Final Resu lt * XR Chest 2 Views (04/30/2024 11:21 AM EST) Anatomical Region Laterality Modality Chest Radiographic Maribel ging 04/30/2024 11:2 1 AM EST Narrative 04/30/2024 1:31 PM EST ?[facility] ?[address] ?[place] [address] ?XRay Report ? Signed ? Patient: Brandon Lang Luis ?MR#: [id number] ? : 1975 ?Acct:[id number] ? Age/Sex: 49 / F ?ADM Date: 04/30/24 ? Loc: HO.HHCX ? Attending Dr: Oliver Bates MD ? Ordering Physician: Oliver Bates MD ?? Date of Service: 04/30/24 ?? Procedure(s): XR chest 2V ?? Accession Number(s): [id number] ? cc: Oliver Bates MD ? EXAMINATION: [...] 01:28 PM EST RP ? Dictated By: ?Gabbie,Guero S MD ? Signed By: ?<Electronically signed by Guero S aGbbie, MD in OV> ?04/30/24 1328 ? DD/ 1121 ? TD/TT: 04/30/24 1200 ? Flatware Maker: VIOLETTE ? Procedure Note Donotuseinterpreter, Image - 04/30/2024 [facility] [address] [place] [address] XRay Report Signed Patient: Brandon Lang YMR#: [id number] : 1975Acct:[id number] Age/Sex: 49 / FADM Date: 04/30/24 Loc: HO.HHCX Attending Dr: Oliver Bates MD Ordering Physician: Oliver Bates MD Date of Service: 04/30/24 Procedure(s): XR chest 2V Accession Number(s): [id number] cc: Oliver Bates MD EXAMINATION: XR CHEST [...] 04/30/24 1328 DD/ 1121 TD/TT: 04/30/24 1200 Flatware Maker: VIOLETTE Oliver Batse MD IMG XR PROCEDURES Final Result * POCT Rapid Influenza B ONTIVEROS ID NOW (04/29/2024 7:14 PM EST) Only the most recent of2 resultswithin the time period is included. Influenza B Negative Negative, Indeterminate [facility] QC Media Lot # [id number] [facility] Lot# Expiration Date [facility] Swab 04/29/2024 7:14 PM EST Oliver Bates MD POINT OF CARE TEST ENTER/EDIT OR DERABLES Final Result Performing Organization Address City/[facility]/ZIP Co de Phone Number [facility] [address] [place] [phone] * POCT Rapid Influenza A ONTIVEROS ID NOW (04/29/2024 7:14 PM EST) Only the most recent of2 resultswithin the time period is included. [facility] Influenza A Negative Negative, Indeterminate [facility] QC Media Lot # [id number] [facility] Lot# Expiration Date [facility] Swab 04/29/2024 7:14 PM EST Oliver Bates MD POINT OF CARE TEST ENTER/EDIT OR DERABLES Final Result Performing Organization Address [facility] Co de Phone Number [facility] [address] [place] [phone] * POCT Rapid Covid-19 BinaxNOW (04/29/2024 7:14 PM EST) Only the most recent of2 resultswithin the time period is included. Pathologist [facility] Rapid COVID Ag Negative QC Media Lot # [id number] Lot# Expiration Date Swab 04/29/2024 7:14 PM EST Oliver Bates MD POINT OF CARE TEST ENTER/EDIT OR DERABLES Final Result * Respiratory Viral Panel PCR (04/29/2024 12:00 AM EST) [facility] Adenovirus PCR Not Detected Not Detect. [facility] Bordetella pertussis PCR Not Detected Not Detect. [facility] Comment:Interpret results wi th caution. If B. pertussis isspecifically suspected, additional testing using analternate method is recommended. Bordetella parapertussis PCR Not Detected Not Detect. [facility] Chlamydia pneumoniae PCR Not Detected Not Detect. [facility] Coronavirus 229E PCR Not Detected Not Detect. [facility] Coronavirus HKU1 PCR Not Detected Not Detect. [facility] Coronavirus NL63 PCR Not Detected Not Detect. [facility] Coronavirus OC43 PCR Not Detected Not Detect. [facility] SARS-CoV-2 PCR Not Detected Not Detect. [facility] Comment:SARS-CoV-2 not detec michael by real-time [...] Influenza A PCR Not Detected Not Detect. [facility] Influenza B PCR Not Detected Not Detect. [facility] Human metapneumovirus PCR Not Detected Not Detect. [facility] Rhino/Enterovirus PCR Not Detected Not Detect. [facility] Mycoplasma pneumoniae PCR Not Detected Not Detect. [facility] Parainfluenza 1 PCR Not Detected Not Detect. [facility] Parainfluenza 2 PCR Not Detected Not Detect. [facility] Parainfluenza 3 PCR Not Detected Not Detect. [facility] Parainfluenza 4 PCR Not Detected Not Detect. [facility] RSV PCR Not Detected Not Detect. [facility] Resp Panel NA Note See Note H [facility] Comment:All results must be correlated [...] assay is performed by Multiplexed PCR, utilizing [employer] Film Array. 04/29/2024 04/29/2024 us Oliver Bates MD LAB BLOOD ORDERABLES Final Resul t [facility] [address] [place] [phone] * (ABNORMAL) Lipid Panel, Standard (04/14/2024 12:38 PM EST) Triglycerides 82 <150 mg/dL [facility] Comment:Desirable Triglyceri de: less than 150 mg/dLBorderline High Triglyceride 150-199 mg/dLHigh Triglyceride: 200-499 mg/dLVery High Triglyceride: greater than or equal to 5OO mg/dL Cholesterol 199 <200 mg/dL [facility] Comment:Desirable Cholestero l: less than 200 mg/dLBorderline High Cholesterol: 200-239 mg/dLHigh Cholesterol: greater than 239 mg/dL LDL Cholesterol Calculated 104(H) <100 mg/dL [facility] Comment:Desirable LDL: less than 100 mg/dLNear Optimal/Above Optimal LDL: 110- 129 mg/dLBorderline High LDL: 130-159 mg/dLHigh LDL: 160-189 mg/dLVery High LDL: greater than or equal to 190 mg/dL HDL Cholesterol 79 >40 mg/dL [facility] Comment:Desirable HDL: great er than 40 mg/dL Note: This HDL assay may give artificially low results in patients with liver disease. Blood Venous blood specimen / Unknown 04/14/2024 12:38 PM EST 04/14/2024 1:44 PM EST us Miranda Maravilla DO LAB BLOOD ORDERABLES Final R esult [facility] [address] [place] [address] [phone] * (ABNORMAL) Cologuard?? colon cancer screening (03/04/2023 11:20 PM EST) Cologuard Result Positive( A) Negative 03/12/2023 10:35 AM EST [facility] (CLIA #:[id number]) Comment: POSITIVE TEST RESULT. A positive Cologuard [...] (Elliot Dye al, N Engl J Med 2014;370(14):3332-0797.) Cologuard may produce a false negative or false positive result (no colorectal cancer or precancerous polyp present at colonoscopy follow up). A negative Cologuard test result does not guarantee the absence of CRC or advanced adenoma (pre-cancer). The current Cologuard screening interval is every 3 years. ([place] [employer] and [facility]-Society Task Force). Cologuard performance data in a 10,000 patient pivotal study using colonoscopy as the reference method can be accessed at the following location: www.[employer]/results. Additional description of the Cologuard test process, warnings and precautions can be found at www.[employer] Angel Productionsrd.com. Stool specimen (specimen) 03/04/2023 11:20 PM EST 03/06/2023 5:06 PM EST Miranda Renita DO LAB MOLECULAR DIAGNOSTICS OR DERABLES Final Result [facility] (CLIA #:[id number]) [place] [address], * HEPATITIS C AB W/REFL TO HCV RNA, QN, PCR (10/24/2019 9:16 AM EDT) HEPATITIS C ANTIBODY NON-REACT QUIANA NON-REACT QUIANA [facility] INDEX 0.02 <1.00 [facility] Comment: ?? HCV antibody was non-reactive. There is no laboratory ?? evidence of HCV infection. ?? In most cases, no further action is required. However, if recent HCV exposure is suspected, a test for HCV RNA (test code 35803) is suggested. ?? For additional information please refer to http://Keyhole.co/faq/VQY13h5 (This link is being provided for informational/ educational purposes only.) ?? HEPATITIS C ANTIBODY NON-REACT QUIANA NON-REACT QUIANA [facility] INDEX 0.02 <1.00 [facility] Comment: ?? HCV antibody was non-reactive. There is no laboratory ?? evidence of HCV infection. ?? In most cases, no further action is required. However, if recent HCV exposure is suspected, a test for HCV RNA (test code 92463) is suggested. ?? For additional information please refer to http://Keyhole.co/faq/HJO17i1 (This link is being provided for informational/ educational purposes only.) ?? HEPATITIS C ANTIBODY NON-REACT QUIANA NON-REACT QUIANA [facility] INDEX 0.02 <1.00 [facility] Comment: ?? HCV antibody was non-reactive. There is no laboratory ?? evidence of HCV infection. ?? In most cases, no further action is required. However, if recent HCV exposure is suspected, a test for HCV RNA (test code 61573) is suggested. ?? For additional information please refer to http://[employer].Fylet/faq/ENZ11c8 (This link is being provided for informational/ educational purposes only.) ?? 10/24/2019 9:16 AM EDT us Miranda Maravilla DO HISTORICAL/NON ORDERABLE LAB S Final Result [facility] [address] [place] [address], * HIV 1/2 ANTIGEN/ANTIBODY,FOURTH GENERATION W/RFL (10/24/2019 9:16 AM EDT) Pathologist [facility] HIV-1/2 ANTIGEN AND ANTIBODIES, 4TH GENERATION W/ REFLEX NON-REACT QUIANA NON-REACT QUIANA [facility] Comment: HIV-1 antigen and HIV-1/HIV-2 [...] ? For additional information please refer to http://[employer].Fylet/faq/QZR482 (This link is being provided for informational/ educational purposes only.) ? The performance of this assay has not been clinically validated in patients less than 2 years old. ?? HIV-1/2 ANTIGEN AND ANTIBODIES, 4TH GENERATION W/ REFLEX NON-REACT QUIANA NON-REACT QUIANA [facility] Comment: HIV-1 antigen and HIV-1/HIV-2 [...] ? For additional information please refer to http://[employer].Fylet/faq/TPT400 (This link is being provided for informational/ educational purposes only.) ? The performance of this assay has not been clinically validated in patients less than 2 years old. ?? HIV-1/2 ANTIGEN AND ANTIBODIES, 4TH GENERATION W/ REFLEX NON-REACT QUIANA NON-REACT QUIANA [facility] Comment: HIV-1 antigen and HIV-1/HIV-2 [...] ? For additional information please refer to http://Keyhole.co/faq/HOY666 (This link is being provided for informational/ educational purposes only.) ? The performance of this assay has not been clinically validated in patients less than 2 years old. ?? 10/24/2019 9:16 AM EDT us Miranda Maravilla DO LAB BLOOD ORDERABLES Final R esult [facility] [address] from Last 3 Months or Most Recently Relevant to Health Maintenance Insurance [facility] STANDARD MEDICARE Member Subscriber Plan / Payer (Ef fective 2022-Present) Name:Brandon Lang Member ID:[id number] Relation to Subscriber:Self Name:Brandon Lang Subscriber ID:[id number] Payer ID:STATE Group ID:Not on file Type:Medicare Address: [facility] [address] [address] Advance Directives Documents on File Type Date Recorded 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
--- OUTSIDE RECORDS SUMMARY | 2024-07-21 11:26 | XMS_ITS | Encounter Summary ---
Author Organization [employer] Address [address] [facility] [address] [place] [address] Care Team Providers Care Autocad Detailer Name Role Phone Miranda Maravilla DO Primary Care Provider [phone] Encounter Details Date Type Department Care Team ([facility] Contact Info) Description 04/05/2022 Telephone [facility] [address] [place] [phone] Miranda Maravilla DO [address] [place], [place] [phone] Social History Tobacco Use Types Packs/Day Years [...] Upcoming Encounters Date Type Department Care Team ([facility] Contact Info) Description 07/30/2024 9:30 AM EDT Office Visit [facility] [address] [place] [phone] Miranda Maravilla DO [address] [place] [address] documented as of this encounter Visit Diagnoses Not on filedocumented in this encounter Additional Health Concerns Assessment Noted Time PHQ-9 Depression Total Score: 0 03/28/20 22 10:45 AM EST documented as of this encounter Care Teams Autocad Detailer Relationship Specialty Start Date End Date Miranda Maravilla DO [address] [place] [address] PCP - General Family Medicine 09/26/19 documented as of this encounter
--- OUTSIDE RECORDS SUMMARY | 2024-07-21 11:26 | XMS_ITS | Encounter Summary ---
Author Organization [employer] Address [address] [facility] [address] [place] [address] Care Team Providers Care Hot Shot Name Role Phone Miranda Maravilla DO Primary Care Provider + [phone] Reason for Visit * Reason Comments Pre-visit Planning SDOH screening negat tyra and tobacco screening negative Encounter Details Date Type Department Care Team ([facility] st Contact Info) Description 07/21/[address] [facility] [address] [place] [address] Miranda Maravilla DO [address] [place], [place] [phone] Pre-visit Planning (SDOH screening negative and tobacco screening negative) Social History Tobacco Use Types Packs/Day Years [...] AM EDT documented as of this encounter Progress Notes * Shyanne Anderson - 07/21/2024 9:13 AM EDT CC Shyanne placed successful outbound call to patient for pre-visit planning. Patient name and confirmed. Patient confirms appt date and time, and has transportation. Biggest concern for appointment at this time is cancer Patient advised to bring to appointment a photo id and insurance card. Appropriate screenings completed in anticipation of appointment. documented in this encounter Plan of Treatment Upcoming Encounters Date Type Department Care Team (Late st Contact Info) Description 07/30/2024 9:30 [address] EDT Office [address] [facility] [address] [place] [address] Miranda Maravilla DO [address] [place] [address] documented as of this encounter Visit Diagnoses Not on filedocumented in this encounter Additional Health Concerns Assessment Noted Time PHQ-9 Depression Total Score: 7 08/20/19 24 10:35 AM EDT documented as of this encounter Care Teams Hot Shot Relationship Specialty Start Date End Date Miranda Maravilla DO [address] [place] [address] PCP - General Family Medicine 09/26/19 documented as of this encounter
--- OUTSIDE RECORDS SUMMARY | 2024-07-21 11:26 | XMS_ITS | Encounter Summary ---
Author Organization [employer] Address [address] [facility] [address] [place] [address] Care Team Providers Care Beam Press Operator Name Role Phone Miranda Maravilla DO Primary Care Provider + [phone] Reason for Visit * Reason Comments Med Refill Encounter Details Date Type Department Care Team ([facility] Contact Info) Description 07/26/2022 Refill [facility] [address] [place] [phone] Miranda Maravilla DO [address] [place], [place] [phone] Social History Tobacco Use Types Packs/Day Years [...] Upcoming Encounters Date Type Department Care Team ([facility] Contact Info) Description 07/30/2024 9:30 AM EDT Office Visit [facility] [address] [place] [phone] Miranda Maravilla DO [address] [place] [address] documented as of this encounter Visit Diagnoses Not on filedocumented in this encounter Additional Health Concerns Assessment Noted Time PHQ-9 Depression Total Score: 0 05/09/19 23 9:16 AM EST documented as of this encounter Care Teams Beam Press Operator Relationship Specialty Start Date End Date Miranda Maravilla DO [address] [place] [address] PCP - General Family Medicine 09/26/19 documented as of this encounter
--- OUTSIDE RECORDS SUMMARY | 2024-07-21 11:26 | XMS_ITS | Encounter Summary ---
Author Organization [employer] Address [address] [facility] [address] [place] [address] Care Team Providers Care Spray Foam Installer Name Role Phone Miranda Maravilla DO Primary Care Provider + [phone] Reason for Visit * Reason Comments Med Refill Encounter Details Date Type Department Care Team ([facility] st Contact Info) Description 06/01/2024 Refill [facility] [address] [place] [address] Miranda Maravilla DO [address] [place], [place] [phone] Social History Tobacco Use Types Packs/Day Years [...] 07/30/2024 9:30 AM EDT Office Visit [facility] [address] [place] [address] Miranda Maravilla DO [address] [place] [address] documented as of this encounter Visit Diagnoses Not on filedocumented in this encounter Additional Health Concerns Assessment Noted Time PHQ-9 Depression Total Score: 7 08/20/19 24 10:35 AM EDT documented as of this encounter Care Teams Spray Foam Installer Relationship Specialty Start Date End Date Miranda Maravilla DO [address] [place] [address] PCP - General Family Medicine 09/26/19 documented as of this encounter
== END 2024-07-21 10:16 | disposition home or self-care (01) ==
LOC: HO.HGS 10:06
PROVIDERS: PCP Family Medicine; Visit Provider Surgery
DX: C50.812 Malignant neoplasm of overlapping sites of left female breast (principal)
CPT/HCPCS: 99214

== ENCOUNTER → 2024-07-21 10:05 | Outpatient (BNVA) | payer MEDICARE, MEDICAID, SELFPAY | PROVIDERS: PCP Family Medicine; Visit Provider Surgery | DX: Z12.39 Encounter for other screening for malignant neoplasm of breast (principal) | CPT/HCPCS: 99212 ==

== ENCOUNTER 2024-09-15 12:56 | Outpatient (AMB) | payer MEDICARE, MEDICAID, SELFPAY ==
[2024-09-15 13:24] VITALS: BP 104/62; PULSE 85; BMI 43.1
--- NOTE | 2024-09-15 13:24 | MHC.OFFVIS ---
Vital Signs 09/15/24 13:24 Height 5 ft 2 in Weight 235 lb 7.259 oz BMI 43.1 BP 104/62 Blood Pressure Location Rt brachial Position Sitting Pulse 85 Pulse Source Pulse Oximeter Intake Visit Reasons: f/u per PCP Typewriter Assembly And Parts Inspector Required: No Allergies No Known Allergies [No Known Allergies*] Allergy (Unknown, Verified 09/15/24 13:26) Medication List - Last Reconciled 09/15/24 by NAILA Wheeler acetaminophen ER 650 mg PO Q6H PRN albuterol sulfate 90 mcg/actuation (Ventolin HFA) 2 puffs inhalation Q4H PRN baclofen 5 - 10 mg PO DAILY PRN calcium carbonate (Calcium Antacid) 400 mg PO QID PRN cetirizine 10 mg PO DAILY cholecalciferol (vitamin D3) (Vitamin D3) 125 mcg PO DAILY clotrimazole 1% 1 appl topical BID docusate sodium 1 cap PO BID PRN econazole nitrate 1% 1 appl topical BID PRN fluticasone furoate-vilanterol 200-25 mcg/dose (Breo Ellipta) 1 ea inhalation DAILY ipratropium-albuterol 0.5 mg-3 mg(2.5 mg base)/3 mL 3 mL inhalation TID ketotifen fumarate 0.025%(0.035%) (Eye Itch Relief) 1 drp ophthalmic (eye) BID PRN naproxen 500 mg PO BID omeprazole 20 mg PO DAILY sennosides (senna) 2 tabs PO BEDTIME PRN tamoxifen 20 mg PO DAILY torsemide 20 mg PO BID trazodone 100 mg PO BEDTIME PRN triamcinolone acetonide 0.1% topical white petrolatum 42% 1 ea topical BID PRN HPI HPI f/u per PCP: Details: Brandon is a 49-year-old female with past medical history intellectual disability, asthma, severe sleep apnea who was admitted to [facility] in June 2022 with increased shortness of breath and treated for Congestive heart failure. She was diuresed and sent home with torsemide 20 mg daily. She has not had recurrent heart failure admission since that time. She has been treated for breast cancer and has completed chemotherapy. Her torsemide dose is currently at 20 mg b.i.d.. Today she presents with her mother and brother who does the talking as patient is mostly nonverbal. Patient will nod to questions when asked in Surinamese. Brother assists with Surinamese translation at their request. She has some shortness of breath with exertional activities. She has no shortness of breath noted at rest, no coughing, no leg edema. Her CPAP machine broke approximately 1 year ago and she has been wearing oxygen during the night until she can get a new CPAP machine. She does not report chest discomfort or rapid heartbeats. No presyncope, syncope or falls. He has some discomfort to palpation of the left upper quadrant, left breast. Family states she has been reporting this discomfort recently and they are following up with her oncologist. Compliant with all medications. [facility] Medical History Menopause Breast mass, left Hospital discharge follow-up Right leg swelling Pulmonary hypertension Acute on chronic respiratory failure with hypoxia and hypercapnia Asthma with exacerbation Pneumonia Status post repair of fracture of orbit COVID Cough Chest pain Sleep apnea Intellectual disability Morbid obesity Intellectual disability Colon cancer screening GEORGE (obstructive sleep apnea) Oxygen desaturation during sleep Asthma Surgical History History of lumpectomy of left breast (12/07/23) Encounter for insertion of tunneled central venous catheter (CVC) with port Cancer of left breast, stage 3 Status post spinal surgery (~1994) History of open reduction and internal fixation (ORIF) procedure History of esophagogastroduodenoscopy (EGD) Family History Mother Diabetes Hypertension Father Hypertension Maternal Uncle Throat cancer Social History Household Members: Spouse and Children Household Members Other:: mother Housing: House Are you a primary ambulatory care nurse to a significant other at home: No Do you presently have visiting nurse or other home services: Yes ([employer]) Alcohol intake: never Comment: counts correct Patient Tobacco Use Status: Never used Tobacco e-Cigarette/Vaping Use: Never Used Advance Directives Date on File: 08/14/18 service: No Current occupational status: disabled Review of Systems Const All systems reviewed & are unremarkable except as noted in HPI and below ENT Denies dizziness Card Details: discomfort left upper lateral breast quadrant Denies chest pain, Denies chest pain at rest, Denies chest pain with activity, Denies rapid heart rate, Denies pedal edema, Denies edema, Denies leg edema, Denies lightheadedness, Denies palpitations, Denies dyspnea, Reports dyspnea on exertion and Denies orthopnea Resp Denies cough, Denies dyspnea and Reports dyspnea on exertion GI Denies hematochezia and Denies change in stool character Musc Denies abnormal gait, Denies limited range of motion, Denies muscle cramps, Denies muscle weakness, Denies numbness, Denies radiating pain into limb, Denies stiffness and Denies tingling Neuro Denies abnormal gait, Denies dizziness, Denies numbness and Denies tingling Endo Denies palpitations Physical Exam Vital Signs: Last Vital Signs Pulse 85 09/15/24 13:24 BP 104/62 09/15/24 13:24 BMI result Body Mass Index 43.1 Const Other: nonverbal, nods appropriately according to brother, moves all extremeties, follows commands, ambulates steady General: cooperative, healthy appearing, comfortable and no acute distress Neck Neck: Yes normal visual inspection Resp Effort & Inspection: normal respiratory effort Auscultation: clear to auscultation bilaterally, no rales, no rhonchi and no wheezes Cardio Jugular venous distension: no JVD Rate: regular rate Rhythm: regular rhythm Heart sounds: S1 normal heart sound present, S2 normal heart sound present, no murmurs and no rubs Extrem General: Yes normal to inspection Psych Appearance: grossly normal Assessment & Plan Assessment & Plan (1) Acute on chronic right heart failure: Code(s): I50.813 - Acute on chronic right heart failure Category: Medical Plan: H history of heart failure with preserved EF 1st noted 06/2022. She is on torsemide which has helped to stabilize her condition. She has not had recurrent hospitalizations for heart failure. Last echocardiogram 06/04/2023 shows EF 65-70%, no valve abnormalities, no regional wall motion abnormalities. Labs done 06/23/2024 show potassium 4.2, creatinine 0.59. She is morbidly obese but does not appear fluid overloaded on exam. Continue current torsemide. Signs and symptoms of heart failure reviewed with family. Cardiology office visit in 1 year, sooner if needed. (2) GEORGE (obstructive sleep apnea): Code(s): G47.33 - Obstructive sleep apnea (adult) (pediatric) Category: Medical Plan: History of sleep apnea previously treated with CPAP. Family tells me her CPAP has been broken for 1 year and they are waiting on a new machine. At this time she is only wearing oxygen at night. Will forward this note to her resident care director. (3) Morbid obesity: Code(s): E66.01 - Morbid (severe) obesity due to excess calories Category: Medical Plan: Benefits a weight loss discussed with family. Contributes to shortness of breath with activity. (4) Pulmonary hypertension: Code(s): I27.20 - Pulmonary hypertension, unspecified Category: Medical Plan: Follows with pulmonology Plan During the visit, the patient was informed of the ongoing management strategy for HFpEF using torsemide to prevent fluid buildup. She/ family were educated on recognizing symptoms of fluid overload, such as dyspnea when lying down and leg swelling, and the need to seek timely care. Recommended obtaining new CPAP device, necessary for managing her obstructive sleep apnea. The patient's post-cancer treatment status was reviewed, confirming cessation of chemotherapy. I confirmed a one-year follow-up schedule for cardiac evaluation, ensuring coordination with Dr. Tesfaye for ongoing pulmonary needs. Patient Instructions: - Keep taking torsemide as prescribed. - Drink enough fluids to avoid dehydration. - Watch for signs like trouble breathing while lying down or swelling in legs. - Continue to Use oxygen at night until CPAP machine is obtained - Follow up in one year for cardiology. Patient was informed and verbally consented to the use of an ambient scribe for clinic note documentation during this visit. Visit time spent on chart review, interview, assessment, orders, documentation. Coding Level of Care Code Est Pt Level 4 (50111) Complex EM visit Add On G2211 Diagnoses Acute on chronic right heart failure I50.813 GEORGE (obstructive sleep apnea) G47.33 Morbid obesity E66.01 Pulmonary hypertension I27.20 Time Spent (min) 28
--- OUTSIDE RECORDS SUMMARY | 2024-09-15 14:35 | XMS_ITS | Encounter Summary ---
Author Organization [employer] Address [address] [facility] [address] [place] [address] Care Team Providers Care Planning Coordinator Name Role Phone Miranda Maravilla DO Primary Care Provider + [phone] Encounter Details Date Type Department Care Team ([facility] st Contact Info) Description 04/05/2022 Telephone [facility] [address] [place], [place] [phone] Miranda Maravilla DO [address] [place], [place] [phone] Social History Tobacco Use Types Packs/Day Years [...] documented as of this encounter Care Teams Planning Coordinator Relationship Specialty Start Date End Date Miranda Maravilla DO [address] [place] [address] PCP - General Family Medicine 09/26/19 documented as of this encounter
== END 2024-09-15 13:59 | disposition home or self-care (01) ==
LOC: HO.HCS 12:57
PROVIDERS: PCP Family Medicine; Visit Provider Nurse Practitioner Family
DX: I50.813 Acute on chronic right heart failure (principal); G47.33 Obstructive sleep apnea (adult) (pediatric); E66.01 Morbid (severe) obesity due to excess calories; I27.20 Pulmonary hypertension, unspecified
CPT/HCPCS: 99214; G2211

== ENCOUNTER → 2024-09-15 12:56 | Outpatient (BNVA) | payer MEDICARE, MEDICAID, SELFPAY | PROVIDERS: PCP Family Medicine; Visit Provider Nurse Practitioner Family | DX: I50.813 Acute on chronic right heart failure (principal); G47.33 Obstructive sleep apnea (adult) (pediatric); E66.01 Morbid (severe) obesity due to excess calories; I27.20 Pulmonary hypertension, unspecified; Z68.41 Body mass index [BMI] 40.0-44.9, adult | CPT/HCPCS: 99212 ==

== ENCOUNTER 2024-10-07 12:42 | Outpatient (AMB) | payer MEDICARE, MEDICAID, SELFPAY ==
--- NOTE | 2024-10-07 12:49 | A.OFFVIS_ITS ---
Vital Signs 3 10/07/24 12:57 Height 5 ft 2 in Weight 239 lb 6 oz BMI 43.8 BP 126/60 Blood Pressure Location Lt brachial Position Sitting Pulse 95 Intake Visit Reasons: breast pain Intake Note: Patient of Dr Van is seen in office for breast pain. Pt c/o: feels a hard lump in the incision area and pain near the right axilla mm sched:07/17/25 Process Stripper: Process Stripper Present (Susana MARIA DE JESUS) Accompanied by: Family/Other Allergies No Known Allergies (No Known Allergies*) Allergy (Unknown, Verified 10/07/24 12:54) Medication List - Last Reconciled 10/07/24 by Huang Ramos MD acetaminophen ER 650 mg PO Q6H PRN albuterol sulfate 90 mcg/actuation (Ventolin HFA) 2 puffs inhalation Q4H PRN baclofen 5 - 10 mg PO DAILY PRN calcium carbonate (Calcium Antacid) 400 mg PO QID PRN cetirizine 10 mg PO DAILY cholecalciferol (vitamin D3) (Vitamin D3) 125 mcg PO DAILY clotrimazole 1% 1 appl topical BID docusate sodium 1 cap PO BID PRN econazole nitrate 1% 1 appl topical BID PRN fluticasone furoate-vilanterol 200-25 mcg/dose (Breo Ellipta) 1 ea inhalation DAILY ipratropium-albuterol 0.5 mg-3 mg(2.5 mg base)/3 mL 3 mL inhalation TID ketotifen fumarate 0.025%(0.035%) (Eye Itch Relief) 1 drp ophthalmic (eye) BID PRN naproxen 500 mg PO BID omeprazole 20 mg PO DAILY sennosides (senna) 2 tabs PO BEDTIME PRN tamoxifen 20 mg PO DAILY torsemide 20 mg PO BID trazodone 100 mg PO BEDTIME PRN triamcinolone acetonide 0.1% topical white petrolatum 42% 1 ea topical BID PRN HPI Comments Details: 49-year-old female patient, former patient of Dr. SHANKS with a history of left breast infiltrating carcinoma with ductal and lobular features returning with complaints of breast pain. She was evaluated by Dr. Romero and underwent neoadjuvant chemotherapy with AC x4 followed by Taxol times 12 cycles. On 12/07/2023 she underwent left breast lumpectomy with localizer and left axillary sentinel node biopsy. Pathology confirmed a 1.5 cm infiltrating carcinoma with ductal and lobular features, grade 2, ER/ME positive, HER2 Bryan negative with negative margins to within microns, DCIS with negative margins, 1 of 1 sentinel lymph node with metastasis (pT1c N1a (sn)). She subsequently underwent radiation therapy to the left breast in his currently on tamoxifen 20 mg p.o. daily. She reports pain mainly in the left breast at the most lateral portion of the breast. Her most recent mammogram of 07/14/2024 revealed no mammographic evidence of malignancy with postoperative changes in the left breast (BI-RADS 2). [facility] Medical History Menopause Breast mass, left Hospital discharge follow-up Right leg swelling Pulmonary hypertension Acute on chronic respiratory failure with hypoxia and hypercapnia Asthma with exacerbation Pneumonia Status post repair of fracture of orbit COVID Cough Chest pain Sleep apnea Intellectual disability Morbid obesity Intellectual disability Colon cancer screening GEORGE (obstructive sleep apnea) Oxygen desaturation during sleep Asthma Surgical History History of lumpectomy of left breast (12/07/23) Encounter for insertion of tunneled central venous catheter (CVC) with port Cancer of left breast, stage 3 Status post spinal surgery (~1994) History of open reduction and internal fixation (ORIF) procedure History of esophagogastroduodenoscopy (EGD) Family History Mother Diabetes Hypertension Father Hypertension Maternal Uncle Throat cancer Social History Household Members: Spouse and Children Household Members Other:: mother Housing: House Are you a primary healthcare network consultant to a significant other at home: No Do you presently have visiting nurse or other home services: Yes (ASSISTANT FAMILY [employer]ACH[employer]) Alcohol intake: never Comment: counts correct Patient Tobacco Use Status: Never used Tobacco e-Cigarette/Vaping Use: Never Used Advance Directives Date on File: 08/14/18 service: No Current occupational status: disabled Review of Systems Const Unobtainable due to mental condition Physical Exam Const General: no acute distress Nutritional Appearance: well nourished and obese Limitations: behavioral limitations HEENT Head: Yes normocephalic Chest Other: Large pendulous breasts, right breast with no skin change, nipple discharge, palpable mass or enlarged lymph nodes. Left breast status post lumpectomy in a periareolar location. Extensive radiation change noted throughout the left breast but especially in the upper outer quadrant below the axilla. Skin is tender to palpation and firm consistent with radiation burn but no evidence of infection, suspicious mass or fluid collections. Chest/axillae images: 2 1. Area of radiation skin change, tender to palpation Resp Effort & Inspection: normal respiratory effort Skin Other: Warm, dry, no rash Neuro Other: Mobility Assessment: 1. 3 meter assessment time (seconds):7 2. Gait observations: slow tentative pace Extrem Other: No edema Assessment & Plan Assessment & Plan (1) Primary malignant neoplasm of left breast with stage 3 aston metastasis per [place] Joint Committee on Cancer 7th edition (N3): Code(s): C50.912 - Malignant neoplasm of unspecified site of left female breast; C77.9 - Secondary and unspecified malignant neoplasm of lymph node, unspecified Category: Surgical (2) Status post left breast lumpectomy: Code(s): Z98.890 - Other specified postprocedural states Category: Surgical Plan 49-year-old female patient with a history of intellectual disability returning for a breast cancer follow-up visit. She previously underwent neoadjuvant chemotherapy with the direction of Dr. Romero followed by left breast lumpectomy with localizer, left axillary sentinel node biopsy. Pathology revealed an infiltrating carcinoma with ductal and lobular features, grade 2, 1.5 cm with negative margins and DCIS. One of 1 sentinel lymph nodes was found to have metastatic disease (pT1c N1a (sn)). Examination today reveals marked radiation change in the lateral breast with no evidence of recurrent disease. Her most recent mammogram of 07/14/2024 revealed no mammographic evidence of malignancy (BI-RADS 2). I recommended follow-up in 6 months for routine breast examination. Her next mammogram will be due in July 2025. Coding Level of Care Code Est Pt Level 3 (78613) Complex EM visit Add On G2211 Diagnoses Primary malignant neoplasm of left breast with stage 3 aston metastasis per [place] [employer] Committee on Cancer 7th edition (N3) C50.912; C77.9 Status post left breast lumpectomy Z98.890
[2024-10-07 12:57] VITALS: BP 126/60; PULSE 95; BMI 43.8
--- OUTSIDE RECORDS SUMMARY | 2024-10-07 13:34 | XMS_ITS | Encounter Summary ---
Author Organization [employer] Address [address] [facility] [address] [place] [address] Care Team Providers Care Stores Assistant Name Role Phone Miranda Maravilla DO Primary Care Provider + [phone] Encounter Details Date Type Department Care Team ([facility] st Contact Info) Description 04/05/2022 Telephone [facility] [address] [place], [place] [phone] Miranda Maravilla DO [address] [place], [place] [phone] Social History Tobacco Use Types Packs/Day Years [...] documented as of this encounter Care Teams Stores Assistant Relationship Specialty Start Date End Date Miranda Maravilla DO [address] [place] [address] PCP - General Family Medicine 09/26/19 documented as of this encounter
== END 2024-10-07 13:09 | disposition home or self-care (01) ==
LOC: HO.HGS 12:43
PROVIDERS: PCP Family Medicine; Visit Provider Surgery
DX: C50.912 Malignant neoplasm of unspecified site of left female breast (principal); C77.9 Secondary and unspecified malignant neoplasm of lymph node, unspecified; Z98.890 Other specified postprocedural states
CPT/HCPCS: 99213; G2211

== ENCOUNTER → 2024-10-07 12:42 | Outpatient (BNVA) | payer MEDICARE, MEDICAID, SELFPAY | PROVIDERS: PCP Family Medicine; Visit Provider Surgery | DX: N64.4 Mastodynia (principal); C50.912 Malignant neoplasm of unspecified site of left female breast; Z79.810 Long term (current) use of selective estrogen receptor modulators (SERMs); Z17.0 Estrogen receptor positive status [ER+]; Z92.21 Personal history of antineoplastic chemotherapy; Z92.3 Personal history of irradiation | CPT/HCPCS: 99212 ==

== ENCOUNTER 2024-12-31 16:08 | Outpatient (REF) | payer MEDICARE, MEDICAID, SELFPAY ==
--- NOTE | ~2024-12-31 | US_ITS ---
EXAMINATION: US TRIPLEX LOWER EXTREMITY, RIGHT CLINICAL INFORMATION: Right lower extremity symptoms COMPARISON: None available. TECHNIQUE: Color-flow triplex imaging with spectral analysis and compression Doppler were performed on the right lower extremity. FINDINGS: Respiratory variation, normal compression and augmented flow are noted throughout the right lower extremity. The visualized common femoral vein, superficial femoral vein, profunda femoral vein, popliteal vein and midcalf posterior tibial venous segments show no evidence of deep venous thrombosis. Peroneal vein was not visualized. US/US venous duplex LE RT IMPRESSION: No evidence of deep venous thrombosis involving the right lower extremity. Electronically signed by: Gasper Demarco MD 12/31/2024 04:53 PM EDT
--- OUTSIDE RECORDS SUMMARY | 2024-12-31 15:00 | XMS_ITS | Encounter Summary ---
Author Organization [employer] Address [address] [facility] [address] [place] [address] Care Team Providers Care Advertisement Compositor Name Role Phone KinzaMiranda chase Primary Care Provider + [phone] Reason for Referral * Consultation (Routine) - Pending Review Specialty Diagnoses / Procedures Referred By Kuldeep johnson Referred To Contact Orthopaedic Surgery Diagnoses Acute pain of right knee Madhu Anthony MD [address] [place] [phone] Phone: tel: fax: Referral ID Status Reason Start Date Expiration Date Visits Requested Visits Authorized [id number] Pending Review Specialty Services Required 12/31/2024 12/31/2025 1 1 * Imaging (STAT) - Authorized Specialty Diagnoses / Procedures Referred By Kuldeep johnson Referred To Contact Cardiology Diagnoses Pain and swelling of right lower leg Procedures Vascular US lower extremity venous duplex right Madhu Anthony MD [address] [place] [id number] Phone: tel: fax: [facility] [address] [place] [address] Phone: tel: fax: Referral ID Status Reason Start Date Expiration Date Visits Requested Visits Authorized [id number] Authorized Perform Procedure 12/31/2024 12/31/2025 1 1 Reason for Visit * Reason Comments Leg Swelling Asthma Encounter Details Date Type Department Care Team (Late st Contact Info) Description 12/31/2024 3:00 PM EDT Office Visit [facility] [address] [place] [address] Madhu Anthony MD [address] [place] [address] Pain and swelling of right lower leg (Primary Dx); Hypoxia; Acute pain of right knee Social History Tobacco Use Types Packs/Day Years Used Date Smoking Tobacco: Never Passive Smoke Exposure: Never Smokeless Tobacco: Never Alcohol Use Standard Drinks/Week Comments Never 0 (1 standard drink = 0.6 oz pur e alcohol) Depression Answer Date Recorded Patient Health Questionnaire-9 Score 7 07/30/2024 Patient Health Questionnaire-9 Score 7 07/30/2024 Last PHQ-9: Questionnaire Data Not on file 0 07/30/2024 Housing Stability Answer Date Recorded What is your housing situation today? I have obedpayal gutierres 08/20/[address] you [...] Answer Date Recorded Patient Health Questionnaire-2 Score 1 07/30/2024 Internet Access Answer Date Recorded Internet Access Q1 Yes 07/21/2024 Internet Access Q2 Not on file 07/21/2024 Comments No Sex and Gender Information Value Date Recorded Sex Assigned at Female 2022 10:14 AM EDT Legal Sex Female 10:14 AM EDT Gender Identity Female 2022 10:14 AM EDT Sexual Orientation Bisexual 2022 10 :14 AM EDT documented as of this encounter Last Filed Vital Signs Vital Sign Reading Time Taken Comments Blood Pressure 122/77 12/31/2024 3:00 PM EDT Pulse 98 12/31/2024 3:00 PM EDT Temperature 36.7 C (98 F) 12/31/2024 3:00 PM EDT Respiratory Rate 22 12/31/2024 3:00 PM EDT Oxygen Saturation 89% 12/31/2024 3:00 PM EDT Inhaled Oxygen Concentration - - Weight 111 kg (245 lb 9.6 oz) 12/31/2024 3:00 PM EDT Height - - Body Mass Index 44.92 12/10/2024 6:11 PM EDT documented in this encounter Progress Notes * Madhu Anthony MD - 12/31/2024 3:00 PM EDT Subjective Patient ID: Brandon Lang is a 49 y.o. female. Barrelhead Inspector: Carlos FROST Here with mother. Brandon came to [facility] today because her day program called today because Brandon told them that her that for the past 2 weeks her right knee and leg was painful and swollen. Hurts more when weight-bearing. States that [facility] used to remove fluid from right knee periodically, but it hasn't been done since breast cancer diagnosis 2 years ago. She has had intermittent right knee pain and swelling since the last arthrocentesis. Tylenol doesn't help the pain. Used Duoneb last night and 1x today for SOB with transient relief. Also uses Symbicort. Has not needed albuterol HFA. Denies chest pain, fever, chills, cough. Daytime home pulse oximeter readings are usually 85-90% Uses home O2 2L NC at night, not during the day. [facility] Pulmonology note from last visit on January 22, 2024 mentions that in the office Brandon's O2 sat on room air was 94% at rest and 96% while walking. She was advised that she could stop using daytime O2 at that time. Her next appointment is scheduled for next month. Brandon had positive rapid COVID test 2 months ago. Lives with parents. LMP=2 years ago. for She is not sexually active. Never smoked. Patient Active Problem List Diagnosis Date Noted Tinea pedis of both feet 09/21/2023 Healthcare maintenance 08/20/2023 Cancer of left breast, stage 3 (CMS/HCC) 08/20/2023 Swelling of both lower extremities 04/11/2023 Fatty liver 11/07/2022 Depressive disorder 03/28/2022 Chronic constipation 03/28/2022 Obesity hypoventilation syndrome ([facility]) 03/23/2022 Allergic rhinitis 03/18/2022 Cholelithiasis 03/18/2022 Intermittent explosive disorder 03/18/2022 Moderate intellectual disability 03/18/2022 Moderate persistent asthma 03/18/2022 BMI 40.0-44.9, adult ([facility]) 03/18/2022 Scoliosis 03/18/2022 Oropharyngeal dysphagia 08/07/2018 Chronic gastroesophageal reflux disease 10/29/2012 GEORGE (obstructive sleep apnea) 09/28/2011 History of COVID-19 11/07/2022 Pulmonary hypertension ([facility]) 11/07/2022 Supplemental oxygen dependent 11/07/2022 The following portions of the chart were reviewed this encounter and updated as appropriate: Tobacco Allergies Meds Problems Med Hx Surg Hx Fam Hx Review of Systems Constitutional: Negative for fever. Respiratory: Positive for shortness of breath. Cardiovascular: Positive for leg swelling. Negative for chest pain. Gastrointestinal: Negative for abdominal pain. Musculoskeletal: Positive for arthralgias. Skin: Negative for rash. Neurological: Negative for headaches. Objective Physical Exam Constitutional: Appearance: Normal appearance. HENT: Nose: Nose normal. Mouth/Throat: Mouth: Mucous membranes are moist. Pharynx: Oropharynx is clear. Eyes: Conjunctiva/sclera: Conjunctivae normal. Pupils: Pupils are equal, round, and reactive to light. Cardiovascular: Rate and Rhythm: Normal rate and regular rhythm. Pulses: Dorsalis pedis pulses are 2+ on the right side. Heart sounds: No murmur heard. Pulmonary: Effort: Pulmonary effort is normal. Breath sounds: Normal breath sounds. No wheezing or rales. Musculoskeletal: General: Normal range of motion. Cervical back: No tenderness. Right lower le+ Edema present. Comments: Right knee: Tenderness over right anterior knee with full range of motion. Question of small effusion. No joint instability. Swelling and tenderness over the right leg including calf. Skin: Findings: No rash. Neurological: Mental Status: She is alert. Gait: Gait is intact. Psychiatric: Mood and Affect: Mood normal. Behavior: Behavior normal. Procedures Assessment/Plan Diagnoses and all orders for this visit: Pain and swelling of right lower leg Stat venous Doppler ultrasound of right lower extremity is scheduled to be done this afternoon at [facility]. If study is negative, lower leg symptoms may be related to swelling and pain of knee. She is being referred at this time to [facility] due to the recurrent knee pain and swelling. Return to clinic if not improving - Vascular US lower extremity venous duplex right; Future Hypoxia We discussed going to the ED now for further evaluation, but mother declined. O2 sat on 2 L nasal cannula in exam room is 97 to 98%. I asked mother to use 1 to 2 L of O2 nasal cannula during the day as well as at night to keep O2 sat 95% or above. I spoke with Dr. Tesfaye's office (her pain management nurse), and they agreed with daytime O2 and will callthe mother to follow-up. Return to clinic if unable to keep O2 sats 95% or above. Acute pain of right knee Referred back to [facility] Other orders - predniSONE (Deltasone) 20 MG tablet; Take 2 tablets (40 mg) by mouth Once per day for 5 days. documented in this encounter Plan of Treatment Scheduled Referrals Name Type Priority Associated Diagnoses Order Schedule Referral to Orthopaedic Surgery Outpatient Referral Routine Acute pain of right knee Expected: 12/31/2024 (Approximate), Expires: 12/31/2025 documented as of this encounter Visit Diagnoses Diagnosis Pain and swelling of right lower leg- Primary Hypoxia Hypoxemia Acute pain of right knee documented in this encounter Additional Health Concerns Assessment Noted Time PHQ-9 Depression Total Score: 7 07/31/19 25 9:41 AM EDT documented as of this encounter Care Teams Advertisement Compositor Relationship Specialty Start Date End Date Miranda Maravilla DO [address] [place] [address] PCP - General Family Medicine 09/26/19 documented as of this encounter
--- OUTSIDE RECORDS SUMMARY | 2024-12-31 18:04 | XMS_ITS | Encounter Summary ---
Author Organization [employer] Address [address] [facility] [address] [place] [address] Care Team Providers Care Painting Technician Name Role Phone Miranda Maravilla DO Primary Care Provider + [phone] Reason for Visit * Reason Comments Med Refill Encounter Details Date Type Department Care Team ([facility] st Contact Info) Description 07/26/2022 Refill [facility] [address] [place] [address] Miranda Maravilla DO [address] [place], [place] [phone] Social History Tobacco Use Types Packs/Day Years [...] documented as of this encounter Care Teams Painting Technician Relationship Specialty Start Date End Date Miranda Maravilla DO [address] [place] [address] PCP - General Family Medicine 09/26/19 documented as of this encounter
--- OUTSIDE RECORDS SUMMARY | 2024-12-31 18:04 | XMS_ITS | Encounter Summary ---
Author Organization [employer] Address [address] [facility] [address] [place] [address] Care Team Providers Care Fire Prevention Specialist Name Role Phone Mrianda Maravilla DO Primary Care Provider [phone] Encounter Details Date Type Department Care Team (Latest Contact Info) Description 12/31/2024 Travel Social History Tobacco Use Types Packs/Day [...] documented as of this encounter Care Teams Fire Prevention Specialist Relationship Specialty Start Date End Date Miranda Maravilla DO [address] [place] [address] PCP - General Family Medicine 09/26/19 documented as of this encounter
--- OUTSIDE RECORDS SUMMARY | 2024-12-31 18:04 | XMS_ITS | Encounter Summary ---
Author Organization [employer] Address [address] [facility] [address] [place] [address] Care Team Providers Care Watch Repairer Apprentice Name Role Phone Miranda Maravilla DO Primary Care Provider + [phone] Reason for Visit * Reason Comments Med Refill Encounter Details Date Type Department Care Team ([facility] st Contact Info) Description 06/01/2024 Refill [facility] [address] [place] [address] Miranda Maravilla DO [address] [place], [place] [phone] Social History Tobacco Use Types Packs/Day Years [...] documented as of this encounter Care Teams Watch Repairer Apprentice Relationship Specialty Start Date End Date Miranda Maravilla DO [address] [place] [address] PCP - General Family Medicine 09/26/19 documented as of this encounter
--- OUTSIDE RECORDS SUMMARY | 2024-12-31 18:04 | XMS_ITS | Encounter Summary ---
Author Organization [employer] Address [address] [facility] [address] [place] [address] Care Team Providers Care Dissolver Operator Name Role Phone Miranda Maravilla DO Primary Care Provider + [phone] Reason for Visit * Reason Comments Med Refill Encounter Details Date Type Department Care Team ([facility] st Contact Info) Description 07/22/2022 Refill [facility] [address] [place] [address] Miranda Maravilla DO [address] [place], [place] [phone] Social History Tobacco Use Types Packs/Day Years [...] documented as of this encounter Care Teams Dissolver Operator Relationship Specialty Start Date End Date Miranda Maravilla DO [address] [place] [address] PCP - General Family Medicine 09/26/19 documented as of this encounter
--- OUTSIDE RECORDS SUMMARY | 2024-12-31 18:04 | XMS_ITS | Clinical Summary ---
Author Organization [employer] Address [address] [facility] [address] [place] [address] Care Team Providers Care Unit Coordinator Name Role Phone Miranda Maravilla DO Primary Care Provider [phone] Allergies No known active allergies Medications FLUoxetine (PROzac) 20 MG capsule Take 1 [...] NEEDED FOR PAIN 100 g 024 Active Petrolatum 42 % ointment APPLY TOPICALLY TO SKIN TWICE DAILY NEEDED 454 g 5 024 Active hydrocortisone 2.5 % cream Apply topically if needed in the morning and at bedtime (foot rash). 28 g 1 024 Active omeprazole (PriLOSEC) [address] capsule Take 1 capsule (20 mg) by mouth before breakfast. Do not crush or chew. 30 capsule 11 025 2025 Active Eye Itch Relief 0.035 % solution PLACE 1 DROP INTO THE AFFECTED EYE(S) TWICE DAILY IN THE MORNING AND AT BEDTIME NEEDED FOR ITCHY EYES 10 mL 2 025 Active Ventolin HFA 108 (90 Base) [...] MUSCLE SPASMS 30 tablet 3 025 Active Skin Protectants, Misc. (eucerin) cream Apply topically if needed for dry skin. 396 g 3 025 2025 Active ipratropium-albute rol (Duo-Neb) 0.5-2.5 mg/3 mL nebulizer solutionIndication s:Unspecified asthma, uncomplicated INHALE 1 AMPULE USING A NEBULIZER THREE TIMES DAILY 180 mL 3 025 Active torsemide (Demadex) 20 MG tablet TAKE 1 TABLET BY MOUTH EVERY DAY 30 tablet 5 025 Active Nirmatrelvir&Riton avir 300/100 (Paxlovid, 300/100,) 20 x 150 MG & 10 x 100MG tablet therapy packIndications:In fection caused by 2019 Novel Coronavirus Take 3 tablets by mouth 2 times daily. Take 2 tabs (300mg of nirmatrelvir) and 1 tab (100mg of ritonavir) PO BID for 5 days. No renal failure. Possible medication interactions reviewed. 30 each Active triamcinolone (Kenalog) 0.1 % ointment APPLY TOPICALLY TWICE DAILY IN THE MORNING AND AT BEDTIME NEEDED FOR RASH 30 g Active acetaminophen (Tylenol 8 Hour) 650 MG ER tablet TAKE 1 TABLET BY MOUTH EVERY 6 HOURS NEEDED FOR MILD PAIN 60 tablet Active budesonide-formote rol (Symbicort) 160-4.5 MCG/ACT inhalerIndications :Moderate persistent asthma with acute exacerbation Inhale 2 puffs in the morning and at bedtime. Rinse mouth with water after use to reduce aftertaste and incidence of candidiasis. Do not swallow. 10.2 g 11 025 2025 Active cetirizine (ZyrTEC) 10 MG tablet TAKE 1 TABLET BY MOUTH EVERY DAY 90 tablet Active calcium carbonate (Calcium Antacid) 500 MG chewable tablet CHEW AND SWALLOW 2 TABLETS BY MOUTH FOUR TIMES DAILY AFTER MEALS AND AT BEDTIME NEEDED FOR HEARTBURN 150 tablet Active naproxen (Naprosyn) 500 MG tabletIndications: Pain TAKE 1 TABLET BY MOUTH TWICE DAILY WITH FOOD NEEDED FOR PAIN 20 tablet 1 Active predniSONE (Deltasone) 20 MG tablet Take 2 tablets (40 mg) by mouth Once per day for 5 days. 10 tablet 025 2024 Active cetirizine (ZyrTEC) 10 MG tablet Take 1 tablet (10 mg) by mouth Once per day. 30 tablet 11 024 2024 Discontinued calcium carbonate (Calcium Antacid) 500 MG chewable tablet CHEW AND SWALLOW 2 TABLETS BY MOUTH FOUR TIMES DAILY AFTER MEALS AND AT BEDTIME NEEDED FOR HEARTBURN 150 tablet 1 025 2024 Discontinued triamcinolone (Kenalog) 0.1 % ointment Apply topically if needed in the morning and at bedtime for rash. 30 g 025 2024 Discontinued naproxen (Naprosyn) 500 MG tabletIndications: Pain TAKE 1 TABLET BY MOUTH TWICE DAILY WITH FOOD NEEDED FOR PAIN 20 tablet 1 025 2024 Discontinued acetaminophen (Tylenol 8 Hour) 650 MG ER tablet TAKE 1 TABLET BY MOUTH EVERY 6 HOURS NEEDED FOR MILD PAIN 60 tablet 1 025 2024 Discontinued Breo Ellipta 200-25 MCG/ACT aerosol powderIndications: Moderate persistent asthma without complication,Obstr uctive sleep apnea syndrome,Obesity hypoventilation syndrome (CMS/HCC) INHALE 1 PUFF BY MOUTH EVERY DAY 60 each 11 025 2024 Discontinued(I neffective) naproxen (Naprosyn) 500 MG tabletIndications: Pain TAKE 1 TABLET BY MOUTH TWICE DAILY WITH FOOD NEEDED FOR PAIN 20 tablet 1 025 2024 Discontinued Active Problems Problem Noted Date [...] Encounters Date Type Department Care Team Description 12/31/2024 3:00 PM EDT Office Visit [facility] [address] [place] [address] Madhu Giordano MD Pain and swelling of right lower leg (Primary Dx); Hypoxia; Acute pain of right knee 12/31/[address] [facility] [address] [place] [address] Madhu Giordano MD 12/31/2024 Travel 12/27/[address] [facility] [address] [place] [address] Miranda Maravilla DO Pain 12/26/[address] [facility] [address] [place] [address] Miranda Maravilla, 12/22/[address] [facility] [address] [place] [address] Miranda Maravilla, 12/10/2024 6:40 PM EDT Office Visit [facility] [address] [place] [address] Tana Delgado ANP Viral URI (Primary Dx); Cough in adult patient; Sore throat; Moderate persistent asthma with acute exacerbation 12/10/2024 Travel 12/04/[address] [facility] [address] [place] [address] Miranda Maravilla DO 11/29/[address] [facility] [address] [place], [place] [phone] Miranda Maravilla DO Pain 11/26/[address] [facility] [address] [place] [phone] Miranda Maravilla DO Moderate persistent asthma without complication; Obstructive sleep apnea syndrome; Obesity hypoventilation syndrome (CMS/HCC) 11/07/2024 10:40 AM EDT Office Visit [facility] [address] [place] [phone] Ami Greene NP Moderate persistent asthma with acute exacerbation (Primary Dx); Cough in adult patient 11/07/2024 Travel 10/17/2024 10:20 AM EDT Office Visit [facility] [address] [place] [address] [phone] Oliver Bates MD COVID-19 10/17/2024 Travel from Last 3 Months Immunizations Immunization Administration Dates Next Due Hep B, Adolescent [...] Relation Name Comments Depression Father Hypertension Father Stroke Father's Sister Diabetes Mother Hypertension Mother Esophageal cancer Mother's Brother Relation Name Status Comments Father Father's Sister Mother Mother's Brother Social History Tobacco Use [...] 9.6 oz) 12/31/2024 3:00 PM EDT Height 157.5 cm (5' 2 ) 12/10/2024 6:11 PM EDT Body Mass Index 44.92 12/10/2024 6:11 PM EDT Plan of Treatment Health Maintenance Due Date Last Done Comments CT Colonography 1975 Colonoscopy 1975 FIT 1975 Sigmoidoscopy 1975 Family Planning (PISQ) 1990 Hepatitis A Vaccines (1 of 2 - Risk 2-dose series) 1994 Hepatitis B Vaccines (1 of 3 - 19+ 3-dose series) 1994 06/28/2001, 01/26/2000, 12/08/1998 Pap Smear 02/07/1996 Cervical Cancer Screening 2005 HPV/Cotest 2005 FOBT 03/04/2024 03/04/2023 COVID-19 Vaccine ( season) 2024 04/11/2023, 03/28/2022, 05/04/2021, Additional history exists Influenza Vaccine (#1) 2024 , 01/11/2023, 03/28/2022, Additional history exists Zoster Vaccines (1 of 2) 2025 Alcohol/Substance Use Screening 04/14/2025 04/14/2024 Mammogram 07/14/2025 07/14/2024, 08/08/2023, 09/13/2023, Additional history exists SDOH Screening 07/21/2025 07/21/2024 Depression Screening 07/30/2025 07/30/2024, 07/31/19 25 Disability Screening 07/30/2025 07/30/2024 Tobacco Screening 12/31/2025 12/31/2024 Colorectal Cancer Screening 03/04/2026 FIT DNA/Cologuard 03/04/2026 03/04/2023 Lipid Panel 04/14/2029 04/14/2024, 1009/2022, 10/24/2019 DTaP/Tdap/Td Vaccines (3 - Td or Tdap) 03/28/2032 03/28/2022, 01/02/2012, 05/05/2004 RSV Patients and Patients Aged 60 years or older (1 - 1-dose 75+ series) 2050 HIV Screening Completed 10/24/2019 Hepatitis C Screening Completed 10/24/2019 Pneumococcal Vaccine: Pediatrics (0 to 5 Years) and At-Risk Patients (6 to 49) Years Completed 05/09/2022, 07/11/2014 HIB Vaccines Aged Out No longer eligi ble based on patient's age to complete this topic HPV Vaccines Aged Out No longer eligi ble based on patient's age to complete this topic IPV Vaccines Aged Out No longer eligi ble based on patient's age to complete this topic Meningococcal B Vaccine Aged Out No l onger eligible based on patient's age to complete [...] Name Priority Date/Time Associated Diagnosis Comments US VENOUS DUPLEX LE RT Routine 4:27 PM EDT POC ONTIVEROS ID NOW STREP A Routine 12/10/2024 6:45 PM EDT Sore throat POCT INFLUENZA B (ID NOW RAPID MOLECULAR) Routine 12/10/2024 6:45 PM EDT Cough in adult patient POCT INFLUENZA A (ID NOW RAPID MOLECULAR) Routine 12/10/2024 6:45 PM EDT Cough in adult patient POCT RAPID COVID ANTIGEN Routine 12/10/2024 6:45 PM EDT Cough in adult patient POCT INFLUENZA B (ID NOW RAPID MOLECULAR) Routine 11/07/2024 11:27 AM EDT Cough in adult patient POCT RAPID STREP A Routine 11/07/2024 11 :27 AM EDT Cough in adult patient POCT RAPID COVID ANTIGEN Routine 11/07/2024 11:27 AM EDT Cough in adult patient POCT INFLUENZA A (ID NOW RAPID MOLECULAR) Routine 11/07/2024 11:26 AM EDT Cough in adult patient POCT INFLUENZA B (ID NOW RAPID MOLECULAR) Routine 10/17/2024 10:16 AM EDT COVID-19 POCT INFLUENZA A (ID NOW RAPID MOLECULAR) Routine 10/17/2024 10:16 AM EDT COVID-19 POCT RAPID COVID ANTIGEN Routine 10/17/2024 10:16 AM EDT COVID-19 BI MAMMOGRAM DIAGNOSTIC TOMOSYNTHESIS BILATERAL Routine 07/14/2024 1:00 PM EDT LIPID PANEL, STANDARD Routine 04/14/2024 12:38 PM EST Epigastric pain Abnormal finding of blood chemistry, unspecified LAB COLOGUARD COLON CANCER SCREEN Routine 03/04/2023 11:20 PM EST Healthcare maintenance ZZZ HISTORICAL HEPATITIS C AB W/REFL TO HCV RNA, QN, PCR Routine 10/24/2019 9:16 AM EDT HIV 1/2 ANTIGEN/ANTIBODY, FOURTH GENERATION W/RFL Routine 10/24/2019 9:16 AM EDT from Last 3 Months or Most Recently Relevant to Health Maintenance Results * US VENOUS DUPLEX LE RT (12/31/2024 4:27 PM EDT) Anatomical Region Laterality Modality Abdomen Ultrasound 12/31/2024 4:27 PM EDT Narrative 12/31/2024 4:56 PM EDT [address] [address] Ultrasound Report Signed Patient: Brandon Lang MR#: [id number] : 1975 Acct:[id number] Age/Sex: 49 / F ADM Date: 12/31/24 Loc: .US Attending Dr: Madhu Giordano MD Ordering Physician: MADHU GIORDANO MD Date of Service: 12/31/24 Procedure(s): US venous duplex LE RT Accession Number(s): [id number] cc: MADHU GIORDANO MD; Miranda Maravilla DO Reason for Exam: r/o DVT RLE EXAMINATION: US TRIPLEX LOWER EXTREMITY, RIGHT CLINICAL INFORMATION: Right lower extremity symptoms COMPARISON: None available. TECHNIQUE: Color-flow triplex imaging with spectral analysis and compression Doppler were performed on the right lower extremity. FINDINGS: Respiratory variation, normal compression and augmented flow are noted throughout the right lower extremity. The visualized common femoral vein, superficial femoral vein, profunda femoral vein, popliteal vein and midcalf posterior tibial venous segments show no evidence of deep venous thrombosis. Peroneal vein was not visualized. US/US venous duplex LE RT IMPRESSION: No evidence of deep venous thrombosis involving the right lower extremity. Electronically signed by: Gasper Demarco MD 12/31/2024 04:53 PM EDT Dictated By: Gasper Demarco MD Signed By: <Electronically signed by Gasper Demarco MD in OV> 12/31/24 1653 DD/ 1627 TD/TT: 12/31/24 1630 Tractor Trailer Mechanic: Procedure Note Donotuseinterpreter, Image - 12/31/2024 [facility] [address] [place] [phone] Ultrasound Report Signed Patient: Brandon Lang YMR#: [id number] : 1975Acct:[id number] Age/Sex: 49 / FADM Date: 12/31/24 Loc: .US Attending Dr: Madhu Giordano MD Ordering Physician: MADHU GIORDANO MD Date of Service: 12/31/24 Procedure(s): US venous duplex LE RT Accession Number(s): [id number] cc: MADHU GIORDANO MD; Miranda Maravilla DO Reason for Exam: r/o DVT RLE EXAMINATION: US TRIPLEX LOWER EXTREMITY, RIGHT CLINICAL INFORMATION: Right lower extremity symptoms COMPARISON: None available. TECHNIQUE: Color-flow triplex imaging with spectral analysis and compression Doppler were performed on the right lower extremity. FINDINGS: Respiratory variation, normal compression and augmented flow are noted throughout the right lower extremity. The visualized common femoral vein, superficial femoral vein, profunda femoral vein, popliteal vein and midcalf posterior tibial venous segments show no evidence of deep venous thrombosis. Peroneal vein was not visualized. US/US venous duplex LE RT IMPRESSION: No evidence of deep venous thrombosis involving the right lower extremity. Electronically signed by: Gasper Demarco MD 12/31/2024 04:53 PM EDT RP Dictated By: Gasper Demarco MD Signed By: <Electronically signed by Gasper Demarco MD in OV> 12/31/24 1653 DD/ 1627 TD/TT: 12/31/24 1630 Tractor Trailer Mechanic: Madhu Giordano MD [facility] Final Result * POCT Rapid Influenza B ONTIVEROS ID NOW (12/10/2024 6:45 PM EDT) Only the most recent of3 resultswithin the time period is included. Influenza B Negative Negative, Indeterminate [facility] Swab 12/10/2024 6:45 PM EDT us Tana Delgado ANP POINT OF CARE TEST ENTER/EDIT OR DERABLES Final Result [facility] [address] [place] [phone] * POCT Rapid Influenza A ONTIVEROS ID NOW (12/10/2024 6:45 PM EDT) Only the most recent of3 resultswithin the time period is included. Influenza A Negative Negative, Indeterminate [facility] Swab 12/10/2024 6:45 PM EDT us Tana Delgado ANP POINT OF CARE TEST ENTER/EDIT OR DERABLES Final Result Performing Organization Address [facility] [address]/[facility] Co de Phone Number [facility] [address] [place] [phone] * POCT Rapid Strep A ONTIVEROS ID NOW (12/10/2024 6:45 PM EDT) Rapid Strep A Screen Negative Negative, None Detected Swab 12/10/2024 6:45 PM EDT us Tana Delgado ANP POINT OF CARE TEST ENTER/EDIT OR DERABLES Final Result * POCT Rapid Covid-19 BinaxNOW (12/10/2024 6:45 PM EDT) Only the most recent of3 resultswithin the time period is included. Rapid COVID Ag Negative [facility] Swab 12/10/2024 6:45 PM EDT us Tana Delgado ANP POINT OF CARE TEST ENTER/EDIT OR DERABLES Final Result Performing Organization Address [facility] [address]/[facility] Co de Phone Number [facility] [address] [place] [phone] * POCT rapid strep A manually resulted (11/07/2024 11:27 AM EDT) Rapid Strep A Screen Negative Negative, None Detected Swab 11/07/2024 11:2 7 AM EDT us Ami Greene NP POINT OF CARE TEST ENTER/EDIT O RDERABLES Final Result * BI Mammogram Diagnostic Tomosynthesis Bilateral (07/14/2024 1:00 PM EDT) Anatomical Region Laterality Modality Breast Bilateral Mammography 07/14/2024 1:00 PM EDT Narrative 07/14/2024 1:58 PM EDT [facility] [address] [place] [address] Mammography Report Signed Patient: Brandon Lang MR#: [id number] : 1975 Acct:[id number] Age/Sex: 49 / F ADM Date: 07/14/24 Loc: HO.MAMMO Attending Dr: Jarrett Van MD Ordering Physician: Jarrett Van MD Results: 2Benig n Findings Date of Service: 07/14/24 Follow Up: 1 Year From [facility] Mammogram Procedure(s): MM tomosynthesis diagnostic BI Accession Number(s): [id number] cc: Miranda Maravilla DO; Jarrett Van MD [...] 07/14/24 1355 DD/ 1300 TD/TT: 07/14/24 1345 Tractor Trailer Mechanic: Procedure Note Donotuseinterpreter, Image - 07/14/2024 [facility] [address] [place] [address] Mammography Report Signed Patient: Brandon Lang YMR#: [id number] : 1975Acct:[id number] Age/Sex: 49 / FADM Date: 07/14/24 Loc: HO.MAMMO Attending Dr: Jarrett Van MD Ordering Physician: Jarrett Van MDResults: 2Benig n Findings Date of Service: 07/14/24Follow Up: 1 Year From [facility] Mammogram Procedure(s): MM tomosynthesis diagnostic BI Accession Number(s): [id number] cc: Miranda Maravilla DO; Jarrett Van MD [...] 07/14/24 1355 DD/ 1300 TD/TT: 07/14/24 1345 Tractor Trailer Mechanic: us [facility] External Provider IMG BI PROCEDURES Final Result * (ABNORMAL) Lipid Panel, Standard (04/14/2024 12:38 PM EST) Triglycerides 82 <150 mg/dL [facility] Comment:Desirable Triglyceri de: less than 150 mg/dLBorderline High Triglyceride 150-199 mg/dLHigh Triglyceride: 200-499 mg/dLVery High Triglyceride: greater than or equal to 5OO mg/dL Cholesterol 199 <200 mg/dL [facility] Comment:Desirable Cholestero l: less than 200 mg/dLBorderline High Cholesterol: 200-239 mg/dLHigh Cholesterol: greater than 239 mg/dL LDL Cholesterol Calculated 104(H) <100 mg/dL [facility] Comment:Desirable LDL: less than [...] DO LAB BLOOD ORDERABLES Final R esult [facility] [address] [place] [phone] * (ABNORMAL) Cologuard?? colon cancer screening (03/04/2023 11:20 PM EST) Cologuard Result Positive( A) Negative 03/12/2023 10:35 AM EST [facility] (CLIA #:[id number]) Comment: POSITIVE TEST RESULT. A positive Cologuard result should be followed with a colonoscopy or visual examination of the colon. The normal value (reference range) for this assay is negative. TEST DESCRIPTION: Composite algorithmic analysis of stool DNA-biomarkers with hemoglobin immunoassay. Quantitative values of individual biomarkers are not [...] (Elliot Dye al, N Engl J Med 2014;370(14):2803-0085.) Cologuard may produce a false negative or false positive result (no colorectal cancer or precancerous polyp present at colonoscopy follow up). A negative Cologuard test result does not guarantee the absence of CRC or advanced adenoma (pre-cancer). The current Cologuard screening interval is every 3 years. ([place] [employer] Society and U.S. Multi-Society Task Force). Cologuard performance data in a 10,000 patient pivotal study using colonoscopy as the reference method can be accessed at the following location: www.[employer]/results. Additional description of the Cologuard test process, warnings and precautions can be found at www.[employer]incept[employer].com. Stool specimen (specimen) 03/04/2023 11:20 PM EST 03/06/2023 5:06 PM EST us Miranda Maravilla DO LAB MOLECULAR DIAGNOSTICS OR DERABLES Final Result [facility] (CLIA #:[id number]) [address] [address], * HEPATITIS C AB W/REFL TO HCV RNA, QN, PCR (10/24/2019 9:16 AM EDT) HEPATITIS C ANTIBODY NON-REACT QUIANA NON-REACT QUIANA [facility] INDEX 0.02 <1.00 [facility] Comment: HCV antibody was non-reactive. There is no laboratory evidence of HCV infection. In most cases, no further action is required. However, if recent HCV exposure is suspected, a test for HCV RNA (test code 07219) is suggested. For additional information please refer to http://[employer]ack[employer]/faq/URA40j8 (This link is being provided for informational/ educational purposes only.) HEPATITIS C ANTIBODY NON-REACT QUIANA NON-REACT QUIANA [facility] INDEX 0.02 <1.00 [facility] Comment: HCV antibody was non-reactive. There is no laboratory evidence of HCV infection. In most cases, no further action is required. However, if recent HCV exposure is suspected, a test for HCV RNA (test code 79812) is suggested. For additional information please refer to http://[employer]/faq/JXI11k3 (This link is being provided for informational/ educational purposes only.) HEPATITIS C ANTIBODY NON-REACT QUIANA NON-REACT QUIANA [facility] INDEX 0.02 <1.00 [facility] Comment: HCV antibody was non-reactive. There is no laboratory evidence of HCV infection. In most cases, no further action is required. However, if recent HCV exposure is suspected, a test for HCV RNA (test code 82027) is suggested. For additional information please refer to http://[employer]/faq/OQL14v9 (This link is being provided for informational/ educational purposes only.) 10/24/2019 9:16 AM EDT us Miranda Maravilla DO HISTORICAL/NON ORDERABLE LAB S Final Result [facility] [address] [place], [place] [address] * HIV 1/2 ANTIGEN/ANTIBODY,FOURTH GENERATION W/RFL (10/24/2019 9:16 AM EDT) HIV-1/2 ANTIGEN AND ANTIBODIES, 4TH GENERATION W/ REFLEX NON-REACT [facility]IANA NON-REACT [facility] Comment: HIV-1 antigen and HIV-1/HIV-2 antibodies were not detected. There is no laboratory evidence of HIV infection. PLEASE NOTE: This information has been disclosed to you from records whose confidentiality may be protected by state law. If your state requires such protection, then the state law prohibits you from making any further disclosure of the information without the specific written consent of the person to whom it pertains, or as otherwise permitted by law. A general authorization for the release of medical or other information is NOT sufficient for this purpose. For additional information please refer to http://Rackup.[employer]/faq/SXW248 (This link is being provided for informational/ educational purposes only.) The performance of this assay has not been clinically validated in patients less than 2 years old. HIV-1/2 ANTIGEN AND ANTIBODIES, 4TH GENERATION W/ REFLEX NON-REACT [facility] NON[facility]ACT [facility] Comment: HIV-1 antigen and HIV-1/HIV-2 antibodies were not detected. There is no laboratory evidence of HIV infection. PLEASE NOTE: This information has been disclosed to you from records whose confidentiality may be protected by state law. If your state requires such protection, then the state law prohibits you from making any further disclosure of the information without the specific written consent of the person to whom it pertains, or as otherwise permitted by law. A general authorization for the release of medical or other information is NOT sufficient for this purpose. For additional information please refer to http://[employer]ackup.[employer].shopkick/faq/MSQ534 (This link is being provided for informational/ educational purposes only.) The performance of this assay has not been clinically validated in patients less than 2 years old. HIV-1/2 ANTIGEN AND ANTIBODIES, 4TH GENERATION W/ REFLEX NON-REACT [facility] Comment: HIV-1 antigen and HIV-1/HIV-2 antibodies were not detected. There is no laboratory evidence of HIV infection. PLEASE NOTE: This information has been disclosed to you from records whose confidentiality may be protected by state law. If your state requires such protection, then the state law prohibits you from making any further disclosure of the information without the specific written consent of the person to whom it pertains, or as otherwise permitted by law. A general authorization for the release of medical or other information is NOT sufficient for this purpose. For additional information please refer to http://education.[employer] software.shopkick/faq/NAP490 (This link is being provided for informational/ educational purposes only.) The performance of this assay has not been clinically validated in patients less than 2 years old. 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
--- OUTSIDE RECORDS SUMMARY | 2024-12-31 18:04 | XMS_ITS | Clinical Summary ---
Author Organization Formerly [facility] Address [address] [address] Phone Care Team Providers Care Diesel Trailer Mechanic Name Role Phone Miranda Maravilla DO Primary Care Provider [phone] Allergies No known active allergies Medications acetaminophen (TYLENOL) 650 MG CR tablet Take 650 mg by mouth every 6 (six) hours as needed. 4 Active albuterol 2.5 mg /3 mL (0.083 %) nebulizer solution INHALE 1 AMPULE USING A NEBULIZER EVERY 4 HOURS NEEDED 3 Active VENTOLIN HFA 90 mcg/actuation inhaler inhale 2 puffs by mouth every 4 hours as needed for wheezing or shortness of breath Active ALPRAZolam (XANAX) 2 MG tablet TAKE 1 TABLET BY MOUTH ONCE, 1 HOUR BEFORE YOUR PROCEDURE 4 Active ARIPiprazole (ABILIFY) 5 MG tablet Take 1 tablet by mouth daily. Active baclofen (LIORESAL) 10 MG tablet TAKE 1/2 TO 1 TABLET BY MOUTH EVERY DAY AT BEDTIME NEEDED FOR MUSCLE SPASMS 4 Active bisacodyl (DULCOLAX) 5 mg EC tablet 4 Active calcium carbonate 500 mg (200 mg elemental) chewable tablet CHEW AND SWALLOW 2 TABLETS BY MOUTH AFTER MEALS AND AT BEDTIME NEEDED FOR HEARTBURN 4 Active cholecalciferol (VITAMIN D3) 5,000 unit tablet Take 1 tablet by mouth every morning. 4 Active diclofenac sodium (VOLTAREN) 1 % Gel APPLY TO THE AFFECTED AREA(S) 2 GRAMS TOPICALLY TWICE DAILY IN THE MORNING AND AT BEDTIME NEEDED FOR PAIN 4 Active docusate sodium (COLACE) 100 MG capsule Take 100 mg by mouth 2 (two) times a day as needed. Active FLUoxetine (PROZAC) 20 MG capsule Take 1 capsule by mouth daily. Active fluticasone propionate (FLONASE) 50 mcg/actuation nasal spray 2 sprays by Each Nare route daily. 3 Active BREO ELLIPTA 200-25 mcg/dose inhaler Inhale 1 puff into the lungs daily. Active HYDROcodone-abigail taminophen (NORCO) 5-325 mg per tablet take 1 tablet by mouth every 4 to 6 hours as needed for pain 4 Active hydrocortisone 2.5 % cream Apply topically 2 (two) times a day as needed. 4 Active ipratropium-alb uteroL (DUONEB) 0.5-3 mg (2.5 mg base)/3 mL nebulizer solution INHALE 1 AMPULE USING A NEBULIZER THREE TIMES DAILY 4 Active ketotifen (ZADITOR) 0.025 % (0.035 %) ophthalmic solution Apply 1 drop to eye 2 (two) times a day as needed. 4 Active lamoTRIgine (LAMICTAL) 100 MG IMMEDIATE release tablet take 1 tablet by oral route once daily in the morning Active naproxen (NAPROSYN) 500 MG tablet TAKE 1 TABLET BY MOUTH TWICE DAILY WITH FOOD NEEDED FOR PAIN Active white petrolatum 42 % Oint APPLY TOPICALLY TO SKIN TWICE DAILY NEEDED 4 Active SENNA 8.6 mg tablet TAKE 2 TABLETS BY MOUTH EVERY DAY AT BEDTIME NEEDED FOR CONSTIPATION Active torsemide (DEMADEX) 20 MG tablet Take 20 mg by mouth. 4 Active triamcinolone acetonide 0.1 % ointment APPLY 1 GRAM TOPICALLY TO AFFECTED AREA(S) TWICE DAILY IN THE MORNING AND AT BEDTIME NEEDED FOR RASH 4 Active traZODone (DESYREL) 50 MG tablet TAKE 2 TABLETS BY MOUTH EVERY DAY AT BEDTIME NEEDED Active Active Problems Problem Noted Date Diagnosed Date Status post left breast lumpectomy 02/04/2024 History of cancer chemotherapy 02/04/2024 Cancer of central portion of left breast 024 Social History Tobacco Use Types Packs/Day Years Used Date Smoking Tobacco: Never Smokeless Tobacco: Never Tobacco Cessation:Counseling Given: Not Answered Alcohol Use Standard Drinks/Week Comments Never 0 (1 standard drink = 0.6 oz pur e alcohol) Education Answer Date Recorded Are you interested in more education? Not on yenny e 01/09/2024 Are you concerned about learning? Not on file 01/09/2024 No 01/09/2024 No 01/09/2024 Digital Access Answer Date Recorded No 01/09/2024 No 01/09/2024 Reliable internet access at home? Not on file 01/09/2024 Device with a working camera? Not on file Comments Unknown Sex and Gender Information Value Date Recorded Sex Assigned at Not on file Legal Sex Female 3:35 PM EDT Gender Identity Not on file Sexual Orientation Not on file Last Filed Vital Signs Vital Sign Reading Time Taken Comments Blood Pressure 108/73 04/01/2024 12:42 PM EST Pulse 96 04/01/2024 12:42 PM EST Temperature 36.7 C (98.1 F) 04/01/2024 12:42 PM EST Respiratory Rate 20 04/01/2024 12:4 2 PM EST Oxygen Saturation 93% 04/01/2024 12: 42 PM EST Inhaled Oxygen Concentration - - Weight 99.2 kg (218 lb 11.2 oz) 03/19/2024 1:01 PM EST Height 157.5 cm (5' 2 ) 01/22/2024 10:0 5 AM EDT Body Mass Index 40 01/22/2024 10:05 AM EDT Plan of Treatment Health Maintenance Due Date Last Done Comments DEPRESSION SCREENING 1987 HEPATITIS C SCREENING 1993 HIV ONE-TIME SCREENING (18-65 YEARS) 1993 PAP SMEAR 02/07/1996 SMOKING STATUS SCREENING (Once After 26 Yrs) 2001 SCREENING FOR DIABETES 2010 PNEUMOCOCCAL VACCINES (0-49 years) (2 of 2 - PCV) 07/12/2015 07/11/2014 COLOGUARD 02/07/2020 COLONOSCOPY 02/07/2020 COLORECTAL CANCER SCREENING 02/07/2020 FIT TEST 02/07/2020 FOBT 02/07/2020 SIGMOIDOSCOPY 02/07/2020 VIRTUAL COLONOSCOPY 02/07/2020 Adult Td,Tdap Booster 01/01/2022 01/02/2012 INFLUENZA VACCINE (#1) 2024 COVID-19 VACCINE ( season) 2024 MAMMOGRAM 11/25/2025 11/26/2023, 11/07, 05/03/2023, Additional history exists LIPID PANEL 04/14/2029 04/14/2024, 02/01/2023 HEPATITIS A VACCINES Aged Out No long er eligible based on patient's age to complete this topic HIB VACCINES Aged Out No longer eligi ble based on patient's age to complete this topic MENINGOCOCCAL VACCINES (ACWY) Aged Out No longer eligible based on patient's age to complete this topic MENINGOCOCCAL VACCINES (B) Aged Out N o longer eligible based on patient's age to complete this topic Medical Devices Not on file Procedures Procedure Name Priority Date/Time Associated Diagnosis Comments BI MAMMOGRAM OUTSIDE (NO INTERPRETATION) Routine 11/26/2023 12:00 AM EDT from Last 3 Months or Most Recently Relevant to Health Maintenance Results * Mammogram Outside (No Interpretation) (11/26/2023 12:00 AM EDT) Narrative SYSTEMGENERATED, DOCUMENTATION - 01/16/2024 9:52 AM EDT This study is for PACS storage only and not for interpretation. us Unknown Unknown MD BURGER OUTSIDE IMAGING W/OUT INT ERPRETATION Final Result from Last 3 Months or Most Recently Relevant to Health Maintenance Insurance MEDICARE PART A & B [place] B Member Subscriber Plan / Payer (Ef fective 2022-) Name:Rickey Brandon Member ID:[id number] Relation to Subscriber:Self Name:Brandon Lang Subscriber ID:[id number] Payer ID:[id number] Group ID:Not on file Type:Medicare Address: [facility] [address] [place], [place] [address] [facility] PART A & B HEALTH MEDICARE PART A & B [place] B Member Subscriber Plan / Payer ( fective 2022-Present) Name:Brandon Lang Member ID:[id number] Relation to Subscriber:Self Name:Brandon Lang Subscriber ID:[id number] Payer ID:[id number] Group ID:Not on file Type:Medicare Address: [id number] [facility] Care Teams Diesel Trailer Mechanic Relationship Specialty Start Date End Date Miranda Maravilla DO [address] [place] [id number] PCP - General Family Medicine 01/09/24 Additional Source Comments The information contained in this document represents components of the legal health record. It is not the complete legal health record.[facility]ly [facility]
--- OUTSIDE RECORDS SUMMARY | 2024-12-31 18:04 | XMS_ITS | Encounter Summary ---
Author Organization [employer] Address [address] [facility] [address] [place] [address] Care Team Providers Care Breaker Hand Name Role Phone Miranda Maravilla DO Primary Care Provider + [phone] Reason for Visit * Reason Comments Med Refill Encounter Details Date Type Department Care Team ([facility] st Contact Info) Description 12/27/2024 Refill [facility] [address] [place] [address] Miranda Maravilla DO 230 [place], [place] [phone] Pain Social History Tobacco Use Types Packs/Day [...] documented as of this encounter Care Teams Breaker Hand Relationship Specialty Start Date End Date Miranda Maravilla DO [address] [place] [address] PCP - General Family Medicine 09/26/19 documented as of this encounter
--- OUTSIDE RECORDS SUMMARY | 2024-12-31 18:04 | XMS_ITS | Encounter Summary ---
Author Organization [employer] Address 75 [facility] [address] [place] [address] Care Team Providers Care Reporting Lead Name Role Phone Miranda Maravilla DO Primary Care Provider + [phone] Reason for Visit * Reason Comments Med Refill Encounter Details Date Type Department Care Team ([facility] st Contact Info) Description 12/26/2024 Refill [facility] 230 [place] [address] Miranda Maravilla DO 230 [place], [place] [phone] Social History Tobacco Use Types Packs/Day Years [...] documented as of this encounter Care Teams Reporting Lead Relationship Specialty Start Date End Date Miranda Maravilla DO [address] [place] [address] PCP - General Family Medicine 09/26/19 documented as of this encounter
--- OUTSIDE RECORDS SUMMARY | 2024-12-31 18:04 | XMS_ITS | Encounter Summary ---
Author Organization [employer] Address 75 [facility] [address] [place] [address] Care Team Providers Care Account Liaison Name Role Phone Miranda Maravilla DO Primary Care Provider + [phone] Reason for Visit * Reason Comments Med Refill Encounter Details Date Type Department Care Team ([facility] st Contact Info) Description 05/18/2022 Refill [facility] [address] [place] [address] Miranda Maravilla DO 230 [place], [place] [phone] Social History Tobacco Use Types Packs/Day Years [...] documented as of this encounter Care Teams Account Liaison Relationship Specialty Start Date End Date Miranda Maravilla DO [address] [place] [address] PCP - General Family Medicine 09/26/19 documented as of this encounter
--- OUTSIDE RECORDS SUMMARY | 2024-12-31 18:04 | XMS_ITS | Encounter Summary ---
Author Organization [employer] Address 75 [facility] [address]t [place] [address] Care Team Providers Care Tobacco Warehouse Manager Name Role Phone Miranda Maravilla DO Primary Care Provider + [phone] Reason for Visit * Reason Comments Med Refill Encounter Details Date Type Department Care Team ([facility] st Contact Info) Description 06/11/2023 Refill [facility] 230 [place] [address] Miranda Maravilla DO 230 [place], [place] [phone] Pain Social History Tobacco Use Types Packs/Day [...] the past 12 months, has t he [employer], oil or water company threatened to shut [...] documented as of this encounter Care Teams Tobacco Warehouse Manager Relationship Specialty Start Date End Date Miranda Maravilla DO [address] [place] [phone] PCP - General Family Medicine 09/26/19 documented as of this encounter
--- OUTSIDE RECORDS SUMMARY | 2024-12-31 18:04 | XMS_ITS | Encounter Summary ---
Author Organization [employer] Address 75 [facility] [address] [place] [address] Care Team Providers Care Transportation Job Titles Name Role Phone Miranda Maravilla DO Primary Care Provider + [phone] Encounter Details Date Type Department Care Team ([facility] st Contact Info) Description 04/05/2022 Telephone [facility] MED[facility]INE [address] [place], [place] [phone] Miranda Maravilla DO 230 [place], [place] [phone] Social History Tobacco Use Types Packs/Day Years [...] documented as of this encounter Care Teams Transportation Job Titles Relationship Specialty Start Date End Date Miranda Maravilla DO 230 [place] [address] PCP - General Family Medicine 09/26/19 documented as of this encounter
--- OUTSIDE RECORDS SUMMARY | 2024-12-31 18:04 | XMS_ITS | Encounter Summary ---
Author Organization [email or web address] Address 75 [facility] 7[address] [place] [address] Care Team Providers Care Rotary Swaging Machine Operator Name Role Phone AdrienneMiranda fried Primary Care Provider + [phone] Encounter Details Date Type Department Care Team (Late st Contact Info) Description 04/25/2024 Orders Only [facility] [address] [place] [address] Provider, MD Jo Ann Social History Tobacco [...] documented as of this encounter Care Teams Rotary Swaging Machine Operator Relationship Specialty Start Date End Date Miranda Maravilla DO 230 [place] [address] PCP - General Family Medicine 09/26/19 documented as of this encounter
--- OUTSIDE RECORDS SUMMARY | 2024-12-31 18:04 | XMS_ITS | Encounter Summary ---
Author Organization [employer] Address 75 [facility] [address] [place] [address] Care Team Providers Care Copy Camera Operator Name Role Phone Miranda Maravilla DO Primary Care Provider + [phone] Encounter Details Date Type Department Care Team (Late st Contact Info) Description 12/31/2024 Orders Only [facility] 230 [place] [address] Madhu Giordano MD [address] [place] [address] Social History Tobacco Use Types Packs/Day Years [...] Comments US VENOUS DUPLEX LE RT Routine 12/31/2024 4:27 PM EDT documented in this encounter Results * US VENOUS DUPLEX LE RT (12/31/2024 4:27 PM EDT) Anatomical Region Laterality Modality Abdomen Ultrasound 12/31/2024 4:27 PM EDT Narrative 12/31/2024 4:56 PM EDT [place] [address] Ultrasound Report Signed Patient: Brandon Lang MR#: [id number] : 1975 Acct:[id number] Age/Sex: 49 / F ADM Date: 12/31/24 Loc: . Attending Dr: Madhu Giordano MD Ordering Physician: MADHU GIORDANO MD Date of Service: 12/31/24 Procedure(s): US venous duplex LE RT Accession Number(s): [id number] cc: MADHU GIORDANO MD; Miranda Maravilla DO [...] 12/31/24 1653 DD/ 1627 TD/TT: 12/31/24 1630 Biodiesel Process Control Technician: Procedure Note Donotuseinterpreter, Image - 12/31/2024 [place] [address] Ultrasound Report Signed Patient: Brandon Lang YMR#: [id number] : 1975Acct:[id number] Age/Sex: 49 / FADM Date: 12/31/24 Loc: .US Attending Dr: Madhu Giordano MD Ordering Physician: MADHU GIORDANO MD Date of Service: 12/31/24 Procedure(s): US venous duplex LE RT Accession Number(s): [id number] cc: MADHU GIORDANO MD; Miranda Maravilla DO [...] 12/31/24 1653 DD/ 1627 TD/TT: 12/31/24 1630 Biodiesel Process Control Technician: us Madhu Giordano MD IMG US PROCEDURES Final Result documented in this encounter Visit Diagnoses Not on filedocumented in this encounter Additional Health Concerns Assessment Noted Time PHQ-9 Depression Total Score: 7 07/31/19 25 9:41 AM EDT documented as of this encounter Care Teams Copy Camera Operator Relationship Specialty Start Date End Date Miranda Maravilla DO [address] [place] [address] PCP - General Family Medicine 09/26/19 documented as of this encounter
== END 2024-12-31 16:09 | disposition home or self-care (01) ==
LOC: HO.US 16:08
PROVIDERS: PCP Family Medicine; Visit Provider Emergency Medicine
DX: R60.0 Localized edema (principal); M79.661 Pain in right lower leg
CPT/HCPCS: 93971

== ENCOUNTER → 2024-12-31 16:27 | Outpatient (BNV) | payer MEDICARE, MEDICAID, SELFPAY | PROVIDERS: PCP Family Medicine; Visit Provider Radiology Diagnostic Radiology | DX: M79.604 Pain in right leg (principal) | CPT/HCPCS: 93971 ==

== ENCOUNTER 2025-02-05 13:51 | Outpatient (AMB) | payer MEDICARE, MEDICAID, SELFPAY ==
--- NOTE | 2025-02-05 14:01 | MHC.OFFVIS ---
Vital Signs 02/05/25 14:02 Height 5 ft 2 in Weight 249 lb BMI 45.5 BP 108/62 Blood Pressure Location Rt brachial Position Sitting Pulse 101 H Pulse Source Pulse Oximeter Pulse Oximetry (%) 93 Oxygen Delivery Method Room Air Intake Visit Reasons: Asthma Allergies No Known Allergies (No Known Allergies*) Allergy (Unknown, Verified 02/05/25 14:04) HPI HPI Asthma: Details: 49-year-old lady with underlying intellectual disability, obesity, now followed for obstructive sleep apnea on CPAP, asthma, and chronic hypoxic respiratory failure on 2 L of supplemental oxygen. Patient has completed treatment for breast cancer including excision and chemotherapy. She denies any recent exacerbations. Patient has been using Advair, DuoNebs, Brovana nebs, and albuterol MDI/nebs with good control of her underlying symptoms. Her lower extremity edema is slowly worsening despite being on torsemide 20 mg twice a day. [facility] Medical History Menopause Breast mass, left Hospital discharge follow-up Right leg swelling Pulmonary hypertension Acute on chronic respiratory failure with hypoxia and hypercapnia Asthma with exacerbation Pneumonia Status post repair of fracture of orbit COVID Cough Chest pain Sleep apnea Intellectual disability Morbid obesity Intellectual disability Colon cancer screening GEORGE (obstructive sleep apnea) Oxygen desaturation during sleep Asthma Surgical History History of lumpectomy of left breast (12/07/23) Encounter for insertion of tunneled central venous catheter (CVC) with port Cancer of left breast, stage 3 Status post spinal surgery (~1994) History of open reduction and internal fixation (ORIF) procedure History of esophagogastroduodenoscopy (EGD) Family History Mother Diabetes Hypertension Father Hypertension Maternal Uncle Throat cancer Social History Household Members: Spouse and Children Household Members Other:: mother Housing: House Are you a primary inpatient care manager rn to a significant other at home: No Do you presently have visiting nurse or other home services: Yes ([employer]) Alcohol intake: never Comment: counts correct Patient Tobacco Use Status: Never used Tobacco e-Cigarette/Vaping Use: Never Used Advance Directives Date on File: 08/14/18 service: No Current occupational status: disabled Review of Systems Const Denies daytime sleepiness, Denies excessive sweating, Denies fatigue, Denies fever(s), Denies lethargy, Denies malaise, Denies night sweats, Denies snoring and Denies weight loss Eyes Denies blurry vision and Denies itchy eyes ENT Denies nasal congestion, Denies post nasal drip, Denies sinus pain, Denies sinus pressure and Denies other ( Thrush) Card Denies chest pain, Reports pedal edema, Denies dyspnea, Reports dyspnea on exertion, Denies orthopnea and Denies paroxysmal nocturnal dyspnea Resp Denies cough, Denies hemoptysis, Denies excessive phlegm production, Denies dyspnea, Reports dyspnea on exertion, Denies snoring and Denies wheezing GI Denies abdominal pain and Denies heartburn Musc Denies myalgias, Denies arthralgias and Denies joint swelling Skin/Breast Denies rash Neuro Denies memory loss and Denies seizure-like activity Psych Denies abnormal sleep pattern, Denies anxiety and Denies memory loss Endo Denies excessive sweating, Denies fatigue and Denies heat intolerance Miller/Lymph Denies easy bruising Aller/Immun Denies itchy eyes, Denies seasonal rhinorrhea and Denies wheezing Physical Exam Vital Signs: Last Vital Signs Pulse 101 H 02/05/25 14:02 BP 108/62 02/05/25 14:02 Pulse Ox 93 02/05/25 14:02 Oxygen Delivery Method Room Air 02/05/25 14:02 BMI result Body Mass Index 45.5 Const General: no acute distress and alert Nutritional Appearance: obese Orientation/consciousness: Other orientation findings ( oriented) HEENT Head: Yes atraumatic Eyes General: appearance normal, both eyes and all related structures Sclerae: sclerae normal EOM: EOMs intact bilaterally Neck Neck: Yes supple Lymphatic: no lymphadenopathy noted Resp Effort & Inspection: normal respiratory effort and no use of accessory muscles Auscultation: clear to auscultation bilaterally Cardio Rate: regular rate Rhythm: regular rhythm Heart sounds: no gallops, no murmurs and no rubs Skin General skin exam: other ( warm) Extrem General: No clubbing, No cyanosis and Yes edema (1+ bilateral) Assessment & Plan Assessment & Plan (1) Asthma: Code(s): J45.909 - Unspecified asthma, uncomplicated Category: Medical Plan: Well controlled on current regimen Breo, albuterol MDI duo nebs. Continue current regimen. (2) Dyspnea on exertion: Code(s): R06.00 - Dyspnea, unspecified Category: Medical Plan: Worsening lower extremity edema and orthopnea on torsemide 20 mg twice a day, will add metolazone 2.5 mg on Sunday. (3) GEORGE (obstructive sleep apnea): Code(s): G47.33 - Obstructive sleep apnea (adult) (pediatric) Category: Medical Plan: Controlled on current CPAP therapy. Continue CPAP therapy. Medications: New metolazone 2.5 mg PO .Sunday tabs 6RF Coding Level of Care Code Est Pt Level 4 (20255) Complex EM visit Add On G2211 Diagnoses Asthma J45.909 Dyspnea on exertion R06.00 GEORGE (obstructive sleep apnea) G47.33
[2025-02-05 14:02] VITALS: BP 108/62; PULSE 101; O2SAT 93; BMI 45.5
--- OUTSIDE RECORDS SUMMARY | 2025-02-05 16:48 | XMS_ITS | Encounter Summary ---
Author Organization [employer] Address 75 [facility] [address] [place] [address] Care Team Providers Care Dedenter Name Role Phone Miranda Maravilla DO Primary Care Provider + [phone] Reason for Visit * Reason Onset Date Comments Durable Medical Equipment 01/28/2025 Encounter Details Date Type Department Care Team ([facility] st Contact Info) Description 01/28/2025 Telephone [facility] MEDICINE [address] [place], [place] [phone] Miranda Maravilla DO 230 [place], [place] [phone] Durable Medical Equipment Social History Tobacco Use Types Packs/Day Years [...] encounter Miscellaneous Notes * Telephone Encounter - Reilly Rankin - 01/28/2025 9:34 AM EDT Tc from pt mom requesting XL menstrual pads for the pt. Any questions contact pt at [phone] documented in this encounter Plan of Treatment Not on file documented as of this encounter Visit Diagnoses Not on filedocumented in this encounter Additional Health Concerns Assessment Noted Time PHQ-9 Depression Total Score: 7 07/31/19 25 9:41 AM EDT documented as of this encounter Care Teams Dedenter Relationship Specialty Start Date End Date Miranda Maravilla DO [address] [place] [address] PCP - General Family Medicine 09/26/19 documented as of this encounter
--- OUTSIDE RECORDS SUMMARY | 2025-02-05 16:48 | XMS_ITS | Encounter Summary ---
Author Organization [employer] Address 75 [facility] [address] [place] [address] Care Team Providers Care Ground Service Equipment Mechanic Name Role Phone Miranda Maravilla DO Primary Care Provider + [phone] Reason for Visit * Reason Comments Med Refill Encounter Details Date Type Department Care Team ([facility] st Contact Info) Description 07/26/2022 Refill [facility] [address] [place] [address] Miranda Maravilla DO 230 [place], [place] [phone] Social History Tobacco Use Types Packs/Day Years [...] documented as of this encounter Care Teams Ground Service Equipment Mechanic Relationship Specialty Start Date End Date Miranda Maravilla DO [address] [place] [address] PCP - General Family Medicine 09/26/19 documented as of this encounter
--- OUTSIDE RECORDS SUMMARY | 2025-02-05 16:48 | XMS_ITS | Encounter Summary ---
Author Organization [employer] Address [address] [facility] [address] [place] [address] Care Team Providers Care Fitter Tacker Name Role Phone Miranda Maravilla DO Primary Care Provider + [phone] Reason for Visit * Reason Onset Date Comments Durable Medical Equipment 02/04/2025 Encounter Details Date Type Department Care Team ([facility] st Contact Info) Description 02/04/2025 Telephone [facility] MED[facility]INE [address] [place], [place] [phone] Miranda Maravilla DO [address] [place], [place] [phone] Durable Medical Equipment Social History Tobacco Use [...] encounter Miscellaneous Notes * Telephone Encounter - Nidia Mays - 02/04/2025 9:58 AM EDT Pts mom walked in requesting pcp to send and sign new dme order for pads. Pt needs them DIANN. documented in this encounter Plan of Treatment Not on file documented as of this encounter Visit Diagnoses Not on filedocumented in this encounter Additional Health Concerns Assessment Noted Time PHQ-9 Depression Total Score: 7 07/31/19 25 9:41 AM EDT documented as of this encounter Care Teams Fitter Tacker Relationship Specialty Start Date End Date Miranda Maravilla DO [address] [place] [id number] PCP - General Family Medicine 09/26/19 documented as of this encounter
--- OUTSIDE RECORDS SUMMARY | 2025-02-05 16:48 | XMS_ITS | Encounter Summary ---
Author Organization [employer] Address [address] [facility] [address] [place] [address] Care Team Providers Care Numerical Control Machine Operator Name Role Phone Miranda Maravilla DO Primary Care Provider + [phone] Encounter Details Date Type Department Care Team ([facility] st Contact Info) Description 04/05/2022 Telephone [facility] MEDICINE [address] [place], [place] [phone] Miranda Maravilla DO [address] [place], [place] [phone] Social History Tobacco Use Types Packs/Day Years [...] documented as of this encounter Care Teams Numerical Control Machine Operator Relationship Specialty Start Date End Date Miranda Maravilla DO [address] [place] [address] PCP - General Family Medicine 09/26/19 documented as of this encounter
--- OUTSIDE RECORDS SUMMARY | 2025-02-05 16:48 | XMS_ITS | Clinical Summary ---
Author Organization [facility] Address [address] [address] Phone Care Team Providers Care Desktop Publishing Associate Name Role Phone Miranda Maravilla DO Primary Care Provider [phone] Allergies No known active allergies Medications acetaminophen [...] B [place] & [facility] & B HEALTH MEDICARE PART A & [place] A & B Member Subscriber Plan / Payer ( fective 2022-Present) Name:Brandon Lang Member ID:[id number] Relation to Subscriber:Self Name:Brandon Lang Subscriber ID:[id number] Payer ID:[id number] Group ID:Not on file Type:Medicare Address: [id number] [facility] Care Teams Desktop Publishing Associate Relationship Specialty Start Date End Date Miranda Maravilla DO [address] [place] [id number] PCP - General Family Medicine 01/09/24 Additional Source Comments The information contained in this document represents components of the legal health record. It is not the complete legal health record.[facility]
--- OUTSIDE RECORDS SUMMARY | 2025-02-05 16:48 | XMS_ITS | Encounter Summary ---
Author Organization [employer] Address [address] [facility] [address] [place] [address] Care Team Providers Care Laborer/Key Man Name Role Phone AdrienneMiranda fried Primary Care Provider + [phone] Encounter Details Date Type Department Care Team (Late st Contact Info) Description 04/25/2024 Orders Only [facility] [address] [place] [address] Provider, MD Jo Ann Social History Tobacco [...] documented as of this encounter Care Teams Laborer/Key Man Relationship Specialty Start Date End Date Miranda Maravilla DO [address] [place] [address] PCP - General Family Medicine 09/26/19 documented as of this encounter
--- OUTSIDE RECORDS SUMMARY | 2025-02-05 16:48 | XMS_ITS | Encounter Summary ---
Author Organization [employer] Address [address] [facility] [address] [place] [address] Care Team Providers Care Vessel Scrapper Helper Name Role Phone Miranda Maravilla DO Primary Care Provider + [phone] Reason for Visit * Reason Comments Med Refill Encounter Details Date Type Department Care Team ([facility] st Contact Info) Description 06/11/2023 Refill [facility] MED[facility]INE [address] [place] [address] Miranda Maravilla DO [address] [place], [place] [phone] Pain Social History Tobacco Use Types Packs/Day [...] the past 12 months, has t he [employer], [employer], oil or water company threatened to shut [...] documented as of this encounter Care Teams Vessel Scrapper Helper Relationship Specialty Start Date End Date Miranda Maravilla DO [address] [place] [id number] PCP - General Family Medicine 09/26/19 documented as of this encounter
--- OUTSIDE RECORDS SUMMARY | 2025-02-05 16:49 | XMS_ITS | Encounter Summary ---
Author Organization [employer] Address [address] [facility] [address] [place] [address] Care Team Providers Care Sap Hana Architect Name Role Phone Miranda Maravilla DO Primary Care Provider + [phone] Reason for Visit * Reason Comments Med Refill Encounter Details Date Type Department Care Team ([facility] st Contact Info) Description 07/22/2022 Refill [facility] MED[facility]INE [address] [place] [address] Miranda Maravilla DO [address] [place], [place] [phone] Social History Tobacco Use Types Packs/Day Years [...] documented as of this encounter Care Teams Sap Hana Architect Relationship Specialty Start Date End Date Miranda Maravilla DO [address] [place] [address] PCP - General Family Medicine 09/26/19 documented as of this encounter
--- OUTSIDE RECORDS SUMMARY | 2025-02-05 16:49 | XMS_ITS | Clinical Summary ---
Author Organization [employer] Address [address] [facility] [address] [place] [address] Care Team Providers Care Shrimp Pond Laborer Name Role Phone Miranda Maravilla DO Primary Care Provider [phone] Allergies No known active allergies Medications FLUoxetine [...] SKIN TWICE DAILY NEEDED 454 g 5 Active hydrocortisone 2.5 % cream Apply topically if needed in the morning and at bedtime (foot rash). 28 g 1 024 Active omeprazole (PriLOSEC) [address] capsule Take 1 capsule (20 mg) by mouth before breakfast. Do not crush or chew. 30 capsule 11 025 2025 Active Ventolin HFA 108 (90 Base) MCG/ACT inhalerIndications :Moderate persistent asthma without complication,Obstr uctive sleep apnea syndrome,Obesity hypoventilation syndrome (CMS/HCC) (HCC) INHALE 2 PUFFS BY MOUTH EVERY 4 HOURS NEEDED FOR WHEEZING OR SHORTNESS OF BREATH 18 g 11 Active senna (Senokot) 8.6 MG tabletIndications: Chronic constipation TAKE 2 TABLETS BY MOUTH EVERY DAY AT BEDTIME NEEDED FOR CONSTIPATION 180 tablet 3 Active docusate sodium (Colace) 100 MG capsule TAKE 1 CAPSULE BY MOUTH TWICE DAILY NEEDED 180 capsule 3 025 Active ipratropium-albute rol (Duo-Neb) 0.5-2.5 mg/3 mL nebulizer solutionIndication s:Unspecified asthma, uncomplicated INHALE 1 AMPULE USING A NEBULIZER THREE TIMES DAILY 180 mL 3 Active torsemide (Demadex) 20 MG tablet TAKE 1 TABLET BY MOUTH EVERY DAY 30 tablet 5 Active Nirmatrelvir&Riton avir 300/100 (Paxlovid, 300/100,) 20 [...] BEDTIME NEEDED FOR RASH 30 g 1 025 Active acetaminophen (Tylenol 8 Hour) 650 MG ER tablet TAKE 1 TABLET BY MOUTH EVERY 6 HOURS NEEDED FOR MILD PAIN 60 tablet 1 025 Active budesonide-formote rol (Symbicort) 160-4.5 MCG/ACT inhalerIndications :Moderate persistent asthma with acute exacerbation Inhale 2 puffs in the morning and at bedtime. Rinse mouth with water after use to reduce aftertaste and incidence of candidiasis. Do not swallow. 10.2 g 11 025 2025 Active cetirizine (ZyrTEC) 10 MG tablet TAKE 1 TABLET BY MOUTH EVERY DAY 90 tablet 1 025 Active calcium carbonate (Calcium Antacid) 500 MG chewable tablet CHEW AND SWALLOW 2 TABLETS BY MOUTH FOUR TIMES DAILY AFTER MEALS AND AT BEDTIME NEEDED FOR HEARTBURN 150 tablet 1 025 Active naproxen (Naprosyn) 500 MG tabletIndications: Pain TAKE 1 TABLET BY MOUTH TWICE DAILY WITH FOOD NEEDED FOR PAIN 20 tablet 1 025 Active Ketotifen Fumarate 0.035 % solution PLACE 1 DROP INTO THE AFFECTED EYE(S) TWICE DAILY IN THE MORNING AND AT BEDTIME NEEDED FOR ITCHING 10 mL 2 025 Active Skin Protectants, Misc. (Minerin Creme) cream APPLY TOPICALLY NEEDED FOR DRY SKIN 454 g 3 025 Active baclofen (Lioresal) 10 MG tabletIndications: Muscle spasm TAKE 1/2 TO 1 TABLET BY MOUTH EVERY DAY AT BEDTIME NEEDED FOR MUSCLE SPASMS 30 tablet 3 025 Active Eye Itch Relief 0.035 % solution PLACE 1 DROP INTO THE AFFECTED EYE(S) TWICE DAILY IN THE MORNING AND AT BEDTIME NEEDED FOR ITCHY EYES 10 mL 2 025 2024 Discontinued baclofen (Lioresal) 10 MG tabletIndications: Muscle spasm TAKE 1/2 TO 1 TABLET BY MOUTH EVERY DAY AT BEDTIME NEEDED FOR MUSCLE SPASMS 30 tablet 3 025 2024 Discontinued Skin Protectants, Misc. (eucerin) cream Apply topically if needed for dry skin. 396 g 3 025 2024 Discontinued Active Problems Problem Noted Date Diagnosed Date Tinea pedis of both feet 09/21/2023 Assessment & Plan (09/21/2023 2:52 PM EDT): CMP ordered to verified LFTs are good I advise mother to let oncologist know I will start her on fluconazole weekly for 4 Healthcare maintenance 08/20/2023 Cancer of left breast, stage 3 ([facility]) 024 Swelling of both lower extremities 04/11/2023 History of COVID-19 11/07/2022 Pulmonary hypertension ([facility]) 11/07/2022 Supplemental oxygen dependent 11/07/2022 Fatty liver 11/07/2022 Depressive disorder 03/28/2022 Chronic constipation 03/28/2022 Obesity hypoventilation syndrome ([facility]) 03/23 Allergic rhinitis 03/18/2022 Cholelithiasis 03/18/2022 Intermittent explosive disorder 03/18/2022 Moderate intellectual disability 03/18/2022 Moderate persistent asthma 03/18/2022 BMI 40.0-44.9, adult ([facility]) 03/18/2022 Scoliosis 03/18/2022 Oropharyngeal dysphagia 08/07/2018 Chronic gastroesophageal reflux disease 10/30/19 13 GEORGE (obstructive sleep apnea) 09/28/2011 Resolved Problems Problem Noted Date Diagnosed Date Resolved Date Encounter for insertion of t unneled central venous catheter (CVC) with port 08/20/2023 08/20/19 24 Primary malignant neoplasm o f breast ([facility]) 08/20/2023 08/20/2023 Breast mass, left 08/20/2023 08/20/2023 [...] hypercapnia 03/18/2022 11/07/2022 Closed fracture of orbit (CMS/HCC) 03/18/2022 03/23/2022 Steatosis of liver 03/18/2022 3 Streptococcal sore throat 03/18/2022 Tachycardia 03/18/2022 03/23/2022 Extreme obesity with alveola r hypoventilation (CMS/HCC) 04/12/2018 03/23/2022 Encounters Date Type Department Care Team Description 02/04/2025 Telephone [facility] [address] [place] [address] Miranda Maravilla DO Durable Medical Equipment 01/28/2025 Telephone [facility] [address] [place] [phone] Miranda Maravilla DO Durable Medical Equipment 01/22/2025 2:20 PM EDT Office Visit [facility] [address] [place] [address] Asia Rosenthal MD Viral upper respiratory tract infection (Primary Dx); Sore throat; Nasal congestion 01/22/2025 Travel 01/16/2025 Refill [facility] [address] [place] [phone] Miranda Maravilla DO Muscle spasm 01/08/2025 Refill [facility] [address] [place] [phone] Miranda Maravilla, 12/31/2024 3:00 PM EDT Office Visit [facility] [address] [place] [phone] Madhu Giordano MD Pain and swelling of right lower leg (Primary Dx); Hypoxia; Acute pain of right knee 12/31/2024 Orders Only [facility] [address] [place] [phone] Madhu Giordano MD 12/31/2024 Travel 12/27/2024 Refill [facility] [address] [place] [phone] Miranda Maravilla DO Pain 12/26/2024 Refill [facility] [address] [place] [address] Miranda Maravilla DO 12/22/2024 Refill [facility] [address] [place] [address] Miranda Maravilla, 12/10/2024 6:40 PM EDT Office Visit [facility] [address] [place] [address] Tana Delgado ANP Viral URI (Primary Dx); Cough in adult patient; Sore throat; Moderate persistent asthma with acute exacerbation 12/10/2024 Travel 12/04/2024 Refill [facility] [address] [place] [address] Miranda Maravilla DO 11/29/2024 Refill [facility] [address] [place] [address] Miranda Maravilla DO Pain 11/26/2024 Refill [facility] [address] [place] [address] Miranda Maravilla DO Moderate persistent asthma without complication; Obstructive sleep apnea syndrome; Obesity hypoventilation syndrome (CMS/HCC) 11/07/2024 10:40 AM EDT Office Visit [facility] [address] [place] [address] Ami Greene NP Moderate persistent asthma with acute exacerbation (Primary Dx); Cough in adult patient 11/07/2024 Travel from Last 3 Months Immunizations Immunization [...] Sign Reading Time Taken Comments Blood Pressure 135/72 01/22/2025 2:18 PM EDT Pulse 81 01/22/2025 2:18 PM EDT Temperature 37 C (98.6 F) 01/22/2025 2:18 PM EDT Respiratory Rate 20 01/22/2025 2:18 PM EDT Oxygen Saturation 98% 01/22/2025 2:18 PM EDT Inhaled Oxygen Concentration - - Weight 111 kg (245 lb) 01/22/2025 2:18 PM EDT Height 157.5 cm (5' 2 ) 01/22/2025 2:18 PM EDT Body Mass Index 44.81 01/22/2025 2:18 PM EDT Plan of Treatment Health Maintenance [...] 25 Disability Screening 07/30/2025 07/30/2024 Tobacco Screening 01/22/2026 01/22/2025 Colorectal Cancer Screening 03/04/2026 FIT DNA/Cologuard 03/04/2026 [...] Name Priority Date/Time Associated Diagnosis Comments POCT COVID-19 AG ONTIVEROS ID NOW Routine 01/22/2025 2:40 PM EDT Sore throat POCT INFLUENZA A (ID NOW RAPID MOLECULAR) Routine 01/22/2025 2:39 PM EDT Nasal congestion POC ONTIVEROS ID NOW STREP A Routine 01/22/2025 2:39 PM EDT Sore throat POCT INFLUENZA B (ID NOW RAPID MOLECULAR) Routine 01/22/2025 2:38 PM EDT Nasal congestion US VENOUS DUPLEX LE RT Routine 4:27 [...] 11:26 AM EDT Cough in adult patient BI MAMMOGRAM DIAGNOSTIC TOMOSYNTHESIS BILATERAL Routine 07/14/2024 [...] to Health Maintenance Results * POCT Rapid Covid-19 ONTIVEROS ID NOW (01/22/2025 2:40 PM EDT) Coronavirus Antigen PCR Negative Negative, Indeterminate, None Detected, Invalid, Specimen unsatisfactory for evaluation, Weakly Positive, 2+ QC Media Lot # [id number] Lot# Expiration Date [id number] Swab 01/22/2025 2:40 PM EDT Asia Rosenhtal MD POINT OF CARE TEST ENTER/EDIT ORDERABLES Final Result * POCT Rapid Influenza A ONTIVEROS ID NOW (01/22/2025 2:39 PM EDT) Only the most recent of3 resultswithin the time period is included. Influenza A Negative Negative, Indeterminate [facility] QC Media Lot # [id number] [facility] Lot# Expiration Date [facility] Swab 01/22/2025 2:39 PM EDT Asia Rosenthal MD POINT OF CARE TEST ENTER/EDIT ORDERABLES Final Result [facility] [address] [place] [phone] * POCT Rapid Strep A ONTIVEROS ID NOW (01/22/2025 2:39 PM EDT) Only the most recent of2 resultswithin the time period is included. Rapid Strep A Screen Negative Negative, None Detected QC Media Lot # [id number] Lot# Expiration Date Swab 01/22/2025 2:39 PM EDT Asia Rosenthal MD POINT OF CARE TEST ENTER/EDIT ORDERABLES Final Result * POCT Rapid Influenza B ONTIVEROS ID NOW (01/22/2025 2:38 PM EDT) Only the most recent of3 resultswithin the time period is included. Influenza B Negative Negative, Indeterminate [facility] QC Media Lot # [id number] [facility] Lot# Expiration Date [facility] Swab 01/22/2025 2:38 PM EDT Asia Rosenthal MD POINT OF CARE TEST ENTER/EDIT ORDERABLES Final Result [facility] [address] [place] [phone] * US VENOUS DUPLEX LE RT (12/31/2024 4:27 PM EDT) Anatomical Region Laterality Modality Abdomen Ultrasound 12/31/2024 4:27 PM EDT Narrative 12/31/2024 4:56 PM EDT [address] [address] Ultrasound Report Signed Patient: Brandon Lang MR#: [id number] : 1975 Acct:[id number] Age/Sex: 49 / F ADM Date: 12/31/24 Loc: .US Attending Dr: Madhu Giordano MD Ordering Physician: MADHU GIORDANO MD Date of Service: 12/31/24 Procedure(s): US venous duplex LE RT Accession Number(s): [id number] cc: MADHU GIORDANO MD; Miranda Maravilla DO [...] 12/31/24 1653 DD/ 1627 TD/TT: 12/31/24 1630 Bank Guard: Procedure Note Donotuseinterpreter, Image - 12/31/[address] [address] Ultrasound Report Signed Patient: Brandon Lang YMR#: [id number] : 1975Acct:[id number] Age/Sex: 49 / FADM Date: 12/31/24 Loc: HO.US Attending Dr: Madhu Giordano MD Ordering Physician: MADHU GIORDANO MD Date of Service: 12/31/24 Procedure(s): US venous duplex LE RT Accession Number(s): [id number] cc: MADHU GIORDANO MD; Miranda Maravilla DO [...] 12/31/24 1653 DD/ 1627 TD/TT: 12/31/24 1630 Bank Guard: us Madhu Giordano MD IMG US PROCEDURES Final Result * POCT Rapid Covid-19 BinaxNOW (12/10/2024 6:45 PM EDT) Only the most recent of2 resultswithin the time period is included. Rapid COVID Ag Negative [facility] Swab 12/10/2024 6:45 PM EDT us Tana Delgado ANP POINT OF CARE TEST ENTER/EDIT OR DERABLES Final Result [facility] [address] [place] [address] [phone] * POCT rapid strep A manually resulted (11/07/2024 11:27 AM EDT) Rapid Strep A Screen Negative Negative, None Detected Swab 11/07/2024 11:2 7 AM EDT Ami Greene CLINICAL SUPPORT NURSE POINT OF CARE TEST ENTER/EDIT O RDERABLES Final Result * BI Mammogram Diagnostic Tomosynthesis Bilateral (07/14/2024 1:00 PM EDT) Anatomical Region Laterality Modality Breast Bilateral Mammography 07/14/2024 1:00 PM EDT Narrative 07/14/2024 1:58 PM EDT [address] [place] [address] Mammography Report Signed Patient: Brandon Lang MR#: [id number] : 1975 Acct:[id number] Age/Sex: 49 / F ADM Date: 07/14/24 Loc: HO.MAMMO Attending Dr: Jarrett Van MD Ordering Physician: Jarrett Van MD Results: 2Benig n Findings Date of Service: 07/14/24 Follow Up: 1 Year From Orig ina Mammogram Procedure(s): MM tomosynthesis diagnostic BI Accession Number(s): [id number] cc: Miranda Maravilla DO; Jarrett Van MD [...] 07/14/24 1355 DD/ 1300 TD/TT: 07/14/24 1345 Bank Guard: Procedure Note Donotuseinterpreter, Image - 07/14/2024 Court[facility] [address] [place] [address] Mammography Report Signed Patient: Brandon Lang YMR#: [id number] : 1975Acct:[id number] Age/Sex: 49 / FADM Date: 07/14/24 Loc: HO.MAMMO Attending Dr: Jarrett Van MD Ordering Physician: Jarrett Van MDResults: 2Benig n Findings Date of Service: 07/14/24Follow Up: 1 Year From Orig ina Mammogram Procedure(s): MM tomosynthesis diagnostic BI Accession Number(s): [id number] cc: Miranda Maravilla DO; Jarrett Van MD [...] 07/14/24 1355 DD/ 1300 TD/TT: 07/14/24 1345 Bank Guard: [facility] External Provider IMG BI PROCEDURES Final Result * (ABNORMAL) Lipid Panel, Standard (04/14/2024 12:38 PM EST) Triglycerides 82 <150 mg/dL [facility] Comment:Desirable Triglyceri de: less than 150 mg/dLBorderline High Triglyceride 150-199 mg/dLHigh Triglyceride: 200-499 mg/dLVery High Triglyceride: greater than or equal to 5OO mg/dL Cholesterol 199 <200 mg/dL [facility] Comment:Desirable Cholestero l: less than 200 mg/dLBorderline High Cholesterol: 200-239 mg/dLHigh Cholesterol: greater than 239 mg/dL LDL Cholesterol Calculated 104(H) <100 mg/dL [facility] Comment:Desirable LDL: less than 100 mg/dLNear Optimal/Above Optimal LDL: 110- 129 mg/dLBorderline High LDL: 130-159 mg/dLHigh LDL: 160-189 mg/dLVery High LDL: greater than or equal to 190 mg/dL HDL Cholesterol 79 >40 mg/dL [facility] Comment:Desirable HDL: great er than 40 mg/dL Note: This HDL assay may give artificially low results in patients with liver disease. Blood Venous blood specimen / Unknown 04/14/2024 12:38 PM EST 04/14/2024 1:44 PM EST Miranda Maravilla DO LAB BLOOD ORDERABLES Final R esult [facility] [address] [place] [address] [phone] * (ABNORMAL) Cologuard?? colon cancer screening (03/04/2023 11:20 PM EST) Cologuard Result Positive( A) Negative 03/12/2023 10:35 AM EST [facility] (CLIA #:[id number]) Comment: POSITIVE TEST RESULT. A positive Cologuard [...] (Elliot Dye al, N Engl J Med 2014;370(14):0196-2806.) Cologuard may produce a false negative or false positive result (no colorectal cancer or precancerous polyp present at colonoscopy follow up). A negative Cologuard test result does not guarantee the absence of CRC or advanced adenoma (pre-cancer). The current Cologuard screening interval is every 3 years. ([place] [employer] and U.S. Multi-Society Task Force). Cologuard performance data in a 10,000 patient pivotal study using colonoscopy as the reference method can be accessed at the following location: www.[employer]/results. Additional description of the Cologuard test process, warnings and precautions can be found at www.[employer].com. Stool specimen (specimen) 03/04/2023 11:20 PM EST 03/06/2023 5:06 PM EST Miranda Maravilla DO LAB MOLECULAR DIAGNOSTICS OR DERABLES Final Result [facility] (CLIA #:[id number]) [place] [address], * HEPATITIS C AB W/REFL TO HCV RNA, QN, PCR (10/24/2019 9:16 AM EDT) HEPATITIS C ANTIBODY NON-REACT QUIANA NON-REACT QUIANA [facility] INDEX 0.02 <1.00 [facility] Comment: HCV antibody was non-reactive. There is no laboratory evidence of HCV infection. In most cases, no further action is required. However, if recent HCV exposure is suspected, a test for HCV RNA (test code 23477) is suggested. For additional information please refer to http://[employer].WiN MS/faq/WYV03v1 (This link is being provided for informational/ educational purposes only.) HEPATITIS C ANTIBODY NON-REACT QUIANA NON-REACT QUIANA [facility] INDEX 0.02 <1.00 [facility] Comment: HCV antibody was non-reactive. There is no laboratory evidence of HCV infection. In most cases, no further action is required. However, if recent HCV exposure is suspected, a test for HCV RNA (test code 23804) is suggested. For additional information please refer to http://education.Wi[employer] MS/faq/ZEF55a3 (This link is being provided for informational/ [...] a test for HCV RNA (test code 89623) is suggested. For additional information please refer to http://[employer].Wi[employer] MS/faq/XGY57y9 (This link is being provided for informational/ educational purposes only.) 10/24/2019 9:16 AM EDT Miranda Maravilla DO HISTORICAL/NON ORDERABLE LAB S Final Result [facility] [address] [place] [address], * HIV 1/2 ANTIGEN/ANTIBODY,FOURTH GENERATION W/RFL (10/24/2019 [...] purpose. For additional information please refer to http://[employer].WiN MS/faq/KOR100 (This link is being provided for informational/ [...] purpose. For additional information please refer to http://[employer].Wi[employer] MS/faq/WBE767 (This link is being provided for informational/ [...] purpose. For additional information please refer to http://[employer].Wi[employer] MS/faq/CKW737 (This link is being provided for informational/ educational purposes only.) The performance of this assay has not been clinically validated in patients less than 2 years old. 10/24/2019 9:16 AM EDT us Miranda Maravilla DO LAB BLOOD ORDERABLES Final R esult [facility] [address] from Last 3 Months or Most Recently Relevant to Health Maintenance Insurance [facility] MEDICARE Advance Directives Documents on File Type Date Recorded Patient Guidance Secretary Expl anation Advance Directives and Livin g Will 06/13/2023 3:52 PM HCP Form Care Teams Shrimp Pond Laborer Relationship Specialty Start Date End Date Miranda Maravilla DO [address] [place] [phone] PCP - General Family Medicine 09/26/19
--- OUTSIDE RECORDS SUMMARY | 2025-02-05 16:49 | XMS_ITS | Encounter Summary ---
Author Organization [employer] Address [address] [facility] [address] [place] [address] Care Team Providers Care Global Supply Chain Director Name Role Phone Miranda Maravilla DO Primary Care Provider + [phone] Reason for Visit * Reason Comments Med Refill Encounter Details Date Type Department Care Team ([facility] st Contact Info) Description 05/18/2022 Refill [facility] [address] [place] [address] Miranda Maravilla DO [address] [place], [place] [phone] Social History Tobacco Use Types Packs/Day Years [...] documented as of this encounter Care Teams Global Supply Chain Director Relationship Specialty Start Date End Date Miranda Maravilla DO [address] [place] [address] PCP - General Family Medicine 09/26/19 documented as of this encounter
--- OUTSIDE RECORDS SUMMARY | 2025-02-05 16:49 | XMS_ITS | Encounter Summary ---
Author Organization [employer] Address [address] [facility] [address] [place] [address] Care Team Providers Care Gasoline Catalyst Operator Name Role Phone Miranda Maravilla DO Primary Care Provider + [phone] Reason for Visit * Reason Comments Med Refill Encounter Details Date Type Department Care Team ([facility] st Contact Info) Description 06/01/2024 Refill [facility] [address] [place] [address] Miranda Maravilla DO [address] [place], [place] [phone] Social History Tobacco Use Types Packs/Day Years [...] documented as of this encounter Care Teams Gasoline Catalyst Operator Relationship Specialty Start Date End Date Miranda Maravilla DO [address] [place] [address] PCP - General Family Medicine 09/26/19 documented as of this encounter
== END 2025-02-05 14:13 | disposition home or self-care (01) ==
LOC: HO.HPS 13:51
PROVIDERS: PCP Family Medicine; Visit Provider Internal Medicine Pulmonary Disease
DX: J45.909 Unspecified asthma, uncomplicated (principal); R06.00 Dyspnea, unspecified; G47.33 Obstructive sleep apnea (adult) (pediatric)
CPT/HCPCS: 99214; G2211

== ENCOUNTER → 2025-02-05 13:51 | Outpatient (BNVA) | payer MEDICARE, MEDICAID, SELFPAY | PROVIDERS: PCP Family Medicine; Visit Provider Internal Medicine Pulmonary Disease | DX: J45.909 Unspecified asthma, uncomplicated (principal); G47.33 Obstructive sleep apnea (adult) (pediatric); J96.11 Chronic respiratory failure with hypoxia; F79 Unspecified intellectual disabilities; Z85.3 Personal history of malignant neoplasm of breast; Z79.899 Other long term (current) drug therapy; Z92.21 Personal history of antineoplastic chemotherapy; Z99.81 Dependence on supplemental oxygen; Z99.89 Dependence on other enabling machines and devices | CPT/HCPCS: 99212 ==

== ENCOUNTER 2025-03-03 09:27 | Outpatient (REF) | payer MEDICARE, MEDICAID, SELFPAY ==
--- OUTSIDE RECORDS SUMMARY | 2025-03-03 10:51 | XMS_ITS | Encounter Summary ---
Author Organization [employer] Address [address] [facility] [address] [place] [address] Care Team Providers Care Technical Support Specialist Name Role Phone Miranda Maravilla DO Primary Care Provider + [phone] Reason for Visit * Reason Comments Med Refill Encounter Details Date Type Department Care Team ([facility] st Contact Info) Description 07/22/2022 Refill [facility] [address] [place] [address] Miranda Maravilla DO [address] [place], [place] [phone] Social History Tobacco Use Types Packs/Day Years [...] documented as of this encounter Care Teams Technical Support Specialist Relationship Specialty Start Date End Date Miranda Maravilla DO [address] [place] [address] PCP - General Family Medicine 09/26/19 documented as of this encounter
--- OUTSIDE RECORDS SUMMARY | 2025-03-03 10:51 | XMS_ITS | Encounter Summary ---
Author Organization [employer] Address [address] [facility] [address] [place] [address] Care Team Providers Care Bedspread Seamer Name Role Phone Miranda Maravilla DO Primary Care Provider + [phone] Reason for Visit * Reason Comments Med Refill Encounter Details Date Type Department Care Team ([facility] st Contact Info) Description 05/18/2022 Refill [facility] [address] [place] [address] Miranda Maravilla DO [address] [place], [place] [phone] Social History Tobacco Use Types Packs/Day Years [...] documented as of this encounter Care Teams Bedspread Seamer Relationship Specialty Start Date End Date Miranda Maravilla DO [address] [place] [address] PCP - General Family Medicine 09/26/19 documented as of this encounter
--- OUTSIDE RECORDS SUMMARY | 2025-03-03 10:51 | XMS_ITS | Encounter Summary ---
Author Organization [employer] Address [address] [facility] [address] [place] [address] Care Team Providers Care Nub Card Tender Name Role Phone Miranda Maravilla DO Primary Care Provider + [phone] Reason for Visit * Reason Comments Med Refill Encounter Details Date Type Department Care Team ([facility] st Contact Info) Description 07/26/2022 Refill [facility] [address] [place] [address] Miranda Maravilla DO [address] [place], [place] [phone] Social History Tobacco Use Types Packs/Day Years [...] documented as of this encounter Care Teams Nub Card Tender Relationship Specialty Start Date End Date Miranda Maravilla DO [address] [place] [address] PCP - General Family Medicine 09/26/19 documented as of this encounter
--- OUTSIDE RECORDS SUMMARY | 2025-03-03 10:51 | XMS_ITS | Encounter Summary ---
Author Organization [employer] Address [address] [facility] [address] [place] [address] Care Team Providers Care Instrument Man Name Role Phone AdrienneMiranda fried Primary Care Provider + [phone] Encounter Details Date Type Department Care Team (Late st Contact Info) Description 04/25/2024 Orders Only [facility] [address] [place] [address] Provider, MD Jo Ann Social History Tobacco [...] documented as of this encounter Care Teams Instrument Man Relationship Specialty Start Date End Date Miranda Maravilla DO [address] [place] [address] PCP - General Family Medicine 09/26/19 documented as of this encounter
--- OUTSIDE RECORDS SUMMARY | 2025-03-03 10:51 | XMS_ITS | Encounter Summary ---
Author Organization [employer] Address [address] [facility] [address] [place] [address] Care Team Providers Care Games Dealer Name Role Phone Miranda Maravilla DO Primary Care Provider + [phone] Reason for Visit * Reason Comments Med Refill Encounter Details Date Type Department Care Team ([facility] st Contact Info) Description 06/01/2024 Refill [facility] MEDICINE [address] [place] [address] Miranda Maravilla DO [address] [place], [place] [phone] Social History Tobacco Use Types Packs/Day Years [...] documented as of this encounter Care Teams Games Dealer Relationship Specialty Start Date End Date Miranda Maravilla DO [address] [place] [id number] PCP - General Family Medicine 09/26/19 documented as of this encounter
--- OUTSIDE RECORDS SUMMARY | 2025-03-03 10:51 | XMS_ITS | Encounter Summary ---
Author Organization [employer] Address [address] [facility] [address] [place] [address] Care Team Providers Care Time Lock Expert Name Role Phone Miranda Maravilla DO Primary Care Provider + [phone] Reason for Visit * Reason Comments Med Refill Encounter Details Date Type Department Care Team ([facility] st Contact Info) Description 06/11/2023 Refill [facility] MEDICINE [address] [place] [address] Miranda Maravilla DO [address] [place], [place] [phone] Pain Social History Tobacco Use Types Packs/Day [...] the past 12 months, has t he [employer] oil or water company threatened to shut [...] documented as of this encounter Care Teams Time Lock Expert Relationship Specialty Start Date End Date Miranda Maravilla DO [address] [place] [id number] PCP - General Family Medicine 09/26/19 documented as of this encounter
--- OUTSIDE RECORDS SUMMARY | 2025-03-03 10:51 | XMS_ITS | Encounter Summary ---
Author Organization [employer] Address [address] [facility] [address] [place] [address] Care Team Providers Care Mortgage Closer Name Role Phone Miranda Maravilla DO Primary Care Provider + [phone] Encounter Details Date Type Department Care Team ([facility] st Contact Info) Description 04/05/2022 Telephone [facility] MEDICINE [address] [place], [place] [phone] Miranda Maravilla DO [address] [place], [place] [phone] Social History Tobacco Use Types Packs/Day Years [...] documented as of this encounter Care Teams Mortgage Closer Relationship Specialty Start Date End Date Miranda Maravilla DO [address] [place] [address] PCP - General Family Medicine 09/26/19 documented as of this encounter
--- OUTSIDE RECORDS SUMMARY | 2025-03-03 10:51 | XMS_ITS | Clinical Summary ---
Author Organization [facility] Address [address] [address] Phone Care Team Providers Care Chef Passenger Vessel Name Role Phone Miranda Maravilla DO Primary Care Provider Allergies No known active allergies Medications acetaminophen [...] 1993 HIV ONE-TIME SCREENING (18-65 YEARS) 1993 ZOSTER VACCINES (1 of 2) 1994 PAP SMEAR 02/07/1996 SMOKING STATUS SCREENING (Once After 26 Yrs) 2001 SCREENING FOR DIABETES 2010 PNEUMOCOCCAL VACCINES (50+ years) (2 of 2 - PCV) 07/12/2015 07/11/2014 COLOGUARD 02/07/2020 COLONOSCOPY 02/07/2020 COLORECTAL CANCER SCREENING 02/07/2020 FIT TEST 02/07/2020 FOBT 02/07/2020 SIGMOIDOSCOPY 02/07/2020 VIRTUAL COLONOSCOPY 02/07/2020 Adult Td,Tdap Booster 01/01/2022 01/02/2012 INFLUENZA VACCINE (#1) 2024 COVID-19 VACCINE (1 - 2024- season) 2024 RSV VACCINE (1 - Risk 50-74 years 1-dose series) 2025 MAMMOGRAM 11/25/2025 11/26/2023, 11/07, 05/03/2023, Additional history [...] [place] [facility] [place] [facility]ALTH MEDICARE PART A & [place] & [facility] Care Teams Chef Passenger Vessel Relationship Specialty Start Date End Date Miranda Maravilla DO [address] [place] [id number] PCP - General Family Medicine 01/09/24 Additional Source Comments The information contained in this document represents components of the legal health record. It is not the complete legal health record.[facility]
--- OUTSIDE RECORDS SUMMARY | 2025-03-03 10:51 | XMS_ITS | Encounter Summary ---
Author Organization [employer] Address [address] [facility] [address] [place] [address] Care Team Providers Care Weapons Electrical Engineering Officer Name Role Phone Miranda Maravilla DO Primary Care Provider + [phone] Reason for Visit * Reason Onset Date Comments telephone call 02/27/2025 Encounter Details Date Type Department Care Team ([facility] st Contact Info) Description 02/27/2025 Telephone [facility] MEDICINE [address] [place], [place] [phone] Miranda Maravilla DO [address] [place], [place] [phone] telephone call Social History Tobacco Use Types Packs/Day Years [...] encounter Miscellaneous Notes * Telephone Encounter - Conchita Durham RN - 02/27/2025 3:25 PM EST Noted. PCP has placed BW orders. TC placed to patient [phone] via [employer] [employer] interpreters (Genaro Lora #[id number]) to inform inform BW orders have been placed and patient can come to the lab to have BW drawn. Patient verbalized understanding. Patient to f/u PRN. * Telephone Encounter - Jeannie Batista - 02/27/2025 9:43 AM EST Pt walked in with her mother stating in her last appointment with pcp she said she would put in labs so she can get done but there isn't anything in her chart. Best contact number is [phone] documented in this encounter Plan of Treatment Not on file documented as of this encounter Visit Diagnoses Not on filedocumented in this encounter Additional Health Concerns Assessment Noted Time PHQ-9 Depression Total Score: 7 07/31/19 25 9:41 AM EDT documented as of this encounter Care Teams Weapons Electrical Engineering Officer Relationship Specialty Start Date End Date Miranda Maravilla DO [address] [place] [id number] PCP - General Family Medicine 09/26/19 documented as of this encounter
--- OUTSIDE RECORDS SUMMARY | 2025-03-03 10:52 | XMS_ITS | Clinical Summary ---
Author Organization [employer] Address [address] [facility] [address] [place] [address] Care Team Providers Care Floor Cleaner Name Role Phone Miranda Maravilla DO Primary Care Provider [phone] Allergies No known active allergies Medications FLUoxetine [...] failure. Possible medication interactions reviewed. 30 each 025 Active budesonide-formote rol (Symbicort) 160-4.5 MCG/ACT inhalerIndications :Moderate persistent asthma with acute exacerbation Inhale 2 puffs in the morning and at bedtime. Rinse mouth with water after use to reduce aftertaste and incidence of candidiasis. Do not swallow. 10.2 g 025 2025 Active cetirizine (ZyrTEC) 10 MG tablet TAKE 1 TABLET BY MOUTH EVERY DAY 90 tablet 1 Active Ketotifen Fumarate 0.035 % solution PLACE 1 DROP INTO THE AFFECTED EYE(S) TWICE DAILY IN THE MORNING AND AT BEDTIME NEEDED FOR ITCHING 10 mL 2 025 Active Skin Protectants, Misc. (Minerin Creme) cream APPLY TOPICALLY NEEDED FOR DRY SKIN 454 g 3 Active baclofen (Lioresal) 10 MG tabletIndications: Muscle spasm TAKE 1/2 TO 1 TABLET BY MOUTH EVERY DAY AT BEDTIME NEEDED FOR MUSCLE SPASMS 30 tablet 3 025 Active naproxen (Naprosyn) 500 MG tabletIndications: [...] BY MOUTH EVERY 6 HOURS NEEDED FOR PAIN (LEVE) 60 tablet 1 Active calcium carbonate (Calcium Antacid) 500 MG chewable tablet CHEW AND SWALLOW 2 TABLETS BY MOUTH FOUR TIMES DAILY AFTER MEALS AND AT BEDTIME NEEDED FOR HEARTBURN 150 tablet 1 Active triamcinolone (Kenalog) 0.1 % ointment APPLY TOPICALLY TWICE DAILY IN THE MORNING AND AT BEDTIME NEEDED FOR RASH 30 g 1 025 2024 Discontinued acetaminophen (Tylenol 8 Hour) 650 MG ER tablet TAKE 1 TABLET BY MOUTH EVERY 6 HOURS NEEDED FOR MILD PAIN 60 tablet 1 025 2024 Discontinued calcium carbonate (Calcium Antacid) 500 MG chewable tablet CHEW AND SWALLOW 2 TABLETS BY MOUTH FOUR TIMES DAILY AFTER MEALS AND AT BEDTIME NEEDED FOR HEARTBURN 150 tablet 1 025 2024 Discontinued naproxen (Naprosyn) 500 MG tabletIndications: Pain TAKE 1 TABLET BY MOUTH TWICE DAILY WITH FOOD NEEDED FOR PAIN 20 tablet 1 025 2024 Discontinued Active Problems Problem Noted Date Diagnosed Date Healthcare maintenance 08/20/2023 [place], [place] 3 [place] 0[place] Swelling of both lower extremities 04/11/2023 History of COVID-19 11/07/2022 Pulmonary hypertension [place] 11/07/2022 Supplemental oxygen dependent 11/07/2022 Fatty liver 11/07/2022 Depressive disorder 03/28/2022 Chronic constipation 03/28/2022 Obesity hypoventilation syndrome [place] 03/23 Allergic rhinitis 03/18/2022 Cholelithiasis 03/18/2022 Intermittent explosive disorder 03/18/2022 Moderate intellectual disability 03/18/2022 Moderate persistent asthma 03/18/2022 BMI 40.0-44.9, adult [place] 03/18/2022 Scoliosis 03/18/2022 Oropharyngeal dysphagia 08/07/2018 Chronic gastroesophageal reflux disease 10/30/19 13 GEORGE (obstructive sleep apnea) 09/28/2011 Resolved Problems Problem Noted Date Diagnosed Date Resolved Date Tinea pedis of both feet 09/21/2023 Assessment & Plan (09/21/2023 2:52 PM EDT): CMP ordered to verified LFTs are good I advise mother to let oncologist know I will start her on fluconazole weekly for 4 Encounter for insertion of t unneled central venous catheter (CVC) with port 08/20/2023 08/20/19 24 Primary malignant neoplasm o f breast [place] 08/20/2023 08/20/2023 Breast mass, left 08/20/2023 08/20/2023 [...] Encounters Date Type Department Care Team Description 02/27/2025 Telephone [facility] [place] [address] Miranda Maravilla DO telephone call 02/23/2025 11:15 AM EST Office Visit [facility] [address] Miranda Maravilla DO Fatty liver (Primary Dx); Encounter for vaccination; Encounter for immunization; Prediabetes; Body mass index (BMI) 40.0-44.9, adult (HCC); Abnormal finding of blood chemistry, unspecified; Mixed hyperlipidemia 02/23/2025 Travel 02/20/2025 Telephone [facility] [phone] Miranda Maravilla DO Chart Prep 02/16/2025 Patient Outreach [facility] [place] [address] Miranda Maravilla DO Pre-visit Planning (SDOH screening was completed on 07/21/2024) 02/16/2025 Refill [facility] [place] [address] Miranda Maravilla DO 02/12/2025 Refill [facility] [place] [phone] Miranda Maravilla DO 02/11/2025 Telephone [facility] [place] [address] Miranda Maravilla DO Recall Appointment 02/11/2025 Travel 02/07/2025 Refill [facility] [place] [address] Miranda Maravilla DO Pain 02/04/2025 Telephone [facility] [place] [phone] Miranda Maravilla DO Durable Medical Equipment 01/28/2025 Telephone [facility] [place] [phone] Jurcsak, Miranda, DO Durable Medical Equipment 01/22/2025 2:20 PM EDT Office Visit [facility] [address] [place] [address] Asia Rosenthal MD Viral upper respiratory tract infection (Primary Dx); Sore throat; Nasal congestion 01/22/2025 Travel 01/16/2025 Refill [facility] [address] [place] [address] Miranda Maravilla DO Muscle spasm 01/08/2025 Refill [facility] [address] [place] [address] Miranda Maravilla DO 12/31/2024 3:00 PM EDT Office Visit [facility] [address] [place] [phone] Madhu Giordano MD Pain and swelling of right lower leg (Primary Dx); Hypoxia; Acute pain of right knee 12/31/2024 Orders Only [facility] [address] [place] [phone] Madhu Giordano MD 12/31/2024 Travel 12/27/2024 Refill [facility] [address] [place] [address] Miranda Maravilla DO Pain 12/26/2024 Refill [facility] [address] [place] [phone] Miranda Maravilla DO 12/22/2024 Refill [facility] [address] [place] [phone] Miranda Maravilla DO 12/10/2024 6:40 PM EDT Office Visit [facility] [address] [place] [address] Tana Delgado ANP Viral URI (Primary Dx); Cough in adult patient; Sore throat; Moderate persistent asthma with acute exacerbation 12/10/2024 Travel 12/04/2024 Refill [facility] [address] [place] [address] Miranda Maravilla DO from Last 3 Months Immunizations Immunization Administration Dates Next Due Hep B, Adolescent or Pediatric 06/28/2001,1999,12/08/1998 Influenza injectable quadriv alent IIV4 with preservative 01/24/2018,02/28/2017 Influenza injectable quadriv alent preservative free 01/11/2023,03/28/2022,01/14/2021,01/12,04/07/2019 Influenza, IIV3, injectable 04/27/2011 Influenza, Split (incl. marysol fied surface antigen) 01/30/2013,12/26/2011 Influenza, seasonal, injecta ble, preservative free 02/23/2025,04/14/2024 Moderna Covid-19 Vaccine 12+ 05/04/2021,08/11/19 21,07/09/2020 Pfizer Covid-19 Vaccine 12+ 02/23/2025, Pfizer Covid-19 Vaccine 12+ Bivalent 03/28/2022 Pneumococcal [...] Sign Reading Time Taken Comments Blood Pressure 102/64 02/23/2025 2:50 PM EST Pulse 98 02/23/2025 11:28 AM EST Temperature 36.6 C (97.8 F) 02/23/2025 11:28 AM EST Respiratory Rate 18 02/23/2025 11:28 AM EST Oxygen Saturation 99% 02/23/2025 11:28 AM EST Inhaled Oxygen Concentration - - Weight 112 kg (246 lb) 02/23/2025 11:28 AM EST Height 157.5 cm (5' 2 ) 02/23/2025 11:28 AM EST Body Mass Index 44.99 02/23/2025 11:28 AM EST Plan of Treatment Health Maintenance Due Date Last Done Comments CT Colonography 1975 Colonoscopy 1975 FIT 1975 Sigmoidoscopy 1975 Family Planning (PISQ) 1990 Hepatitis A Vaccines (1 of 2 - Risk 2-dose series) 1994 Hepatitis B Vaccines (1 of 3 - 19+ 3-dose series) 1994 06/28/2001, 01/26/2000, 12/08/1998 Pap Smear 02/07/1996 Cervical Cancer Screening 2005 HPV/Cotest 2005 FOBT 03/04/2024 03/04/2023 RSV Patients and Patients Aged 60 years or older (1 - Risk 50-74 years 1-dose series) 2025 Zoster Vaccines (1 of 2) 2025 Alcohol/Substance Use Screening 04/14/2025 04/14/2024 Diabetes: Hemoglobin A1C 04/14/2025 025, 02/01/2023, 10/24/2019 Mammogram 07/14/2025 07/14/2024, 11/07, 09/13/2023, Additional history exists SDOH Screening 07/21/2025 07/21/2024 Depression Screening 07/30/2025 07/30/2024, 07/31/19 25 Disability Screening 07/30/2025 07/30/2024 Tobacco Screening 01/22/2026 01/22/2025 Colorectal Cancer Screening 03/04/2026 FIT DNA/Cologuard 03/04/2026 03/04/2023 Lipid Panel 04/14/2029 04/14/2024, 01/08, 10/24/2019 DTaP/Tdap/Td Vaccines (3 - Td or Tdap) 03/28/2032 03/28/2022, 01/02/2012, 05/05/2004, Additional history exists HIV Screening Completed 10/24/2019 Hepatitis C Screening Completed 10/24/2019 Pneumococcal Vaccine: 50+ Years Completed 05/09/2022, 07/11/2014 COVID-19 Vaccine Completed 02/23/2025, 06/2023, 03/28/2022, Additional history exists Influenza Vaccine Completed 02/23/2025, , 01/11/2023, Additional history exists HIB Vaccines Aged Out [...] 6:45 PM EDT Cough in adult patient BI MAMMOGRAM DIAGNOSTIC TOMOSYNTHESIS BILATERAL Routine 07/14/2024 1:00 PM EDT HEMOGLOBIN A1C Routine 04/14/2024 12:38 PM EST Epigastric pain Abnormal finding of blood chemistry, unspecified LIPID PANEL, STANDARD Routine 04/14/2024 12:38 PM EST Epigastric pain Abnormal finding of blood chemistry, unspecified LAB COLOGUARD COLON CANCER SCREEN Routine 03/04/2023 11:20 PM EST Healthcare maintenance CalebZZ HISTORICAL HEPATITIS C AB W/REFL TO HCV RNA, QN, PCR Routine 10/24/2019 9:16 AM EDT HIV 1/2 ANTIGEN/ANTIBODY, FOURTH GENERATION W/RFL Routine 10/24/2019 9:16 AM EDT from Last 3 Months or Most Recently Relevant to Health Maintenance Results * POCT Rapid Covid-19 ONTIVEROS ID NOW (01/22/2025 2:40 PM EDT) Pathologist [facility] Coronavirus Antigen PCR Negative Negative, Indeterminate, None Detected, Invalid, Specimen unsatisfactory for evaluation, Weakly Positive, 2+ QC Media Lot # [id number] Lot# Expiration Date Swab 01/22/2025 2:40 PM EDT Asia Rosenthal MD POINT OF CARE TEST ENTER/EDIT ORDERABLES Final Result * POCT Rapid Influenza A ONTIVEROS ID NOW (01/22/2025 2:39 PM EDT) Only the most recent of2 resultswithin the time period is included. [facility] Influenza A Negative Negative, Indeterminate [facility] QC Media Lot # [id number] [facility] Lot# Expiration Date [facility] Swab 01/22/2025 2:39 PM EDT Asia Rosenthal MD POINT OF CARE TEST ENTER/EDIT ORDERABLES Final Result [facility] [address] [place] [phone] * POCT Rapid Strep A ONTIVEROS ID NOW (01/22/2025 2:39 PM EDT) Only the most recent of2 resultswithin the time period is included. Rapid Strep A Screen Negative Negative, None Detected QC Media Lot # [id number] Lot# Expiration Date Swab 01/22/2025 2:39 PM EDT Asia Rosenthal MD POINT OF CARE TEST ENTER/EDIT ORDERABLES Final Result * POCT Rapid Influenza B ONTIVEROS ID NOW (01/22/2025 2:38 PM EDT) Only the most recent of2 resultswithin the time period is included. Influenza B Negative Negative, Indeterminate [facility] QC Media Lot # [id number] [facility] Lot# Expiration Date 2,027 [facility] Swab 01/22/2025 2:38 PM EDT Asia Rosenthal MD POINT OF CARE TEST ENTER/EDIT ORDERABLES Final Result Performing Organization Address City/State/[facility] Co de Phone Number [facility] [address] [place] [phone] * US VENOUS DUPLEX LE RT (12/31/2024 4:27 PM EDT) Anatomical Region Laterality Modality Abdomen Ultrasound 12/31/2024 4:27 PM EDT Narrative 12/31/2024 4:56 PM EDT [address] [address] Ultrasound Report Signed Patient: Brandon Lang MR#: [id number] : 1975 Acct:[id number] Age/Sex: 49 / F ADM Date: 12/31/24 Loc: HO.US Attending Dr: Madhu Giordano MD Ordering Physician: MADHU GIORDANO MD Date of Service: 12/31/24 Procedure(s): US venous duplex LE RT Accession Number(s): [id number] cc: MADHU GIORDANO MD; Miranda Maravilla DO [...] 12/31/24 1653 DD/ 1627 TD/TT: 12/31/24 1630 Structural Design Engineer: Procedure Note Donotuseinterpreter, Image - 12/31/2024 [place] [address] Ultrasound Report Signed Patient: Brandon Lang YMR#: [id number] : 1975Acct:[id number] Age/Sex: 49 / FADM Date: 12/31/24 Loc: .US Attending Dr: Madhu Giordano MD Ordering Physician: MADHU GIORDANO MD Date of Service: 12/31/24 Procedure(s): US venous duplex LE RT Accession Number(s): [id number] cc: MADHU GIORDANO MD; Miranda Maravilla DO [...] 12/31/24 1653 DD/ 1627 TD/TT: 12/31/24 1630 Structural Design Engineer: us Madhu Giordano MD IMG US PROCEDURES Final Result * POCT Rapid Covid-19 BinaxNOW (12/10/2024 6:45 PM EDT) Rapid COVID Ag Negative [facility] Swab 12/10/2024 6:45 PM EDT us Tana Delgado ANP POINT OF CARE TEST ENTER/EDIT OR DERABLES Final Result [facility] [address] [place] [phone] * BI Mammogram Diagnostic Tomosynthesis Bilateral (07/14/2024 1:00 PM EDT) Anatomical Region Laterality Modality Breast Bilateral Mammography 07/14/2024 1:00 PM EDT Narrative 07/14/2024 1:58 PM EDT [address] [place] [address] Mammography Report Signed Patient: Brandon Lang MR#: [id number] : 1975 Acct:[id number] Age/Sex: 49 / F ADM Date: 07/14/24 Loc: HO.MAMMO Attending Dr: Jarrett Van MD Ordering Physician: Jarrett Van MD Results: 2Benig n Findings Date of Service: 07/14/24 Follow Up: 1 Year From Orig inal Mammogram Procedure(s): MM tomosynthesis diagnostic BI Accession Number(s): [id number] cc: Miranda Maravilla DO; Jarrett Van MD [...] 07/14/24 1355 DD/ 1300 TD/TT: 07/14/24 1345 Structural Design Engineer: Procedure Note Donotuseinterpreter, Image - 07/14/2024 [facility] [address] [place] [address] Mammography Report Signed Patient: Brandon Lang R#: [id number] : 1975Acct:[id number] Age/Sex: 49 / FADM Date: 07/14/24 Loc: HO.MAMMO Attending Dr: Jarrett Van MD Ordering Physician: Jarrett Van MDResults: 2Benig n Findings Date of Service: 07/14/24Follow Up: 1 Year From Orig inal Mammogram Procedure(s): MM tomosynthesis diagnostic BI Accession Number(s): [id number] cc: Miranda Maravilla DO; Jarrett Van MD [...] 07/14/24 1355 DD/ 1300 TD/TT: 07/14/24 1345 Structural Design Engineer: us [facility] External Provider IMG BI PROCEDURES Final Result * Hemoglobin A1c (04/14/2024 12:38 PM EST) Hemoglobin A1c 5.3 <6.0 % [facility] Comment:Hemoglobin A1C Refer ence Range Adults: 4.8 - 6.0 % Non diabetic: < 6.0 % Goal: < 7.0 %Additional Action Suggested: > 8.0 %Note: Hemoglobin A1c results are invalid for patients with abnormal amounts of HbF. Blood transfusions may impact the HbA1c concentration in the patient sample. Estimated Average Glucose 105 mg/dL [facility] Comment:eAG = Estimated ave rage glucose which is %A1C expressed asaverage glucose, using the formula of the P2Q-EdqblzdLowovno Glucose study (ADAG), Diabetes Care, Vol.31,#8,Nov. 2007 Blood Venous blood specimen / Unknown 04/14/2024 12:38 PM EST 04/14/2024 1:44 PM EST Miranda Renita DO LAB BLOOD ORDERABLES Final R esult Performing Organization Address City/[facility]/ZIP Co de Phone Number [facility] [address] [place] [phone] * (ABNORMAL) Lipid Panel, Standard (04/14/2024 12:38 PM EST) Triglycerides 82 <150 mg/dL [facility] Comment:Desirable Triglyceri de: less than 150 mg/dLBorderline High Triglyceride 150-199 mg/dLHigh Triglyceride: 200-499 mg/dLVery High Triglyceride: greater than or equal to 5OO mg/dL Cholesterol 199 <200 mg/dL [facility] Comment:Desirable Cholestero l: less than 200 mg/dLBorderline High Cholesterol: 200-239 mg/dLHigh Cholesterol: greater than 239 mg/dL LDL Cholesterol Calculated 104(H) <100 mg/dL [facility] Comment:Desirable LDL: less than 100 mg/dLNear Optimal/Above Optimal LDL: 110- 129 mg/dLBorderline High LDL: 130-159 mg/dLHigh LDL: 160-189 mg/dLVery High LDL: greater than or equal to 190 mg/dL HDL Cholesterol 79 >40 mg/dL [facility] Comment:Desirable HDL: great er than 40 mg/dL Note: This HDL assay may give artificially low results in patients with liver disease. Blood Venous blood specimen / Unknown 04/14/2024 12:38 PM EST 04/14/2024 1:44 PM EST us Miranda Maravilla DO LAB BLOOD ORDERABLES Final R esult [facility] [address] [place] [phone] * (ABNORMAL) Cologuard?? colon cancer screening (03/04/2023 11:20 PM EST) Cologuard Result Positive( A) Negative 03/12/2023 10:35 AM EST [facility] (CLIA #:[id number]) Comment: POSITIVE TEST RESULT. A positive Cologuard [...] (Elliot Dye al, N Engl J Med 2014;370(14):0858-7128.) Cologuard may produce a false negative or false positive result (no colorectal cancer or precancerous polyp present at colonoscopy follow up). A negative Cologuard test result does not guarantee the absence of CRC or advanced adenoma (pre-cancer). The current Cologuard screening interval is every 3 years. ([place] [employer] and U.S. Multi-Society Task Force). Cologuard performance data in a 10,000 patient pivotal study using colonoscopy as the reference method can be accessed at the following location: www.[employer]/results. Additional description of the Cologuard test process, warnings and precautions can be found at www.[employer] [place].com. Stool specimen (specimen) 03/04/2023 11:20 PM EST 03/06/2023 5:06 PM EST Miranda Maravilla DO LAB MOLECULAR DIAGNOSTICS OR DERABLES Final Result [facility] (CLIA #:[id number]) [place] [address], [place] [phone] * HEPATITIS C AB W/REFL TO HCV RNA, QN, PCR (10/24/2019 9:16 AM EDT) HEPATITIS C ANTIBODY NON-REACT QUIANA NON-REACT QUIANA [facility] INDEX 0.02 <1.00 [facility] Comment: HCV antibody was non-reactive. There is no laboratory evidence of HCV infection. In most cases, no further action is required. However, if recent HCV exposure is suspected, a test for HCV RNA (test code 19845) is suggested. For additional information please refer to http://[employer]/faq/FHB82e8 (This link is being provided for informational/ educational purposes only.) HEPATITIS C ANTIBODY NON-REACT QUIANA NON-REACT QUIANA [facility] INDEX 0.02 <1.00 [facility] Comment: HCV antibody was non-reactive. There is no laboratory evidence of HCV infection. In most cases, no further action is required. However, if recent HCV exposure is suspected, a test for HCV RNA (test code 66831) is suggested. For additional information please refer to http://[employer]/faq/ARI00d8 (This link is being provided for informational/ educational purposes only.) HEPATITIS C ANTIBODY NON-REACT QUIANA NON-REACT QUIANA [facility] INDEX 0.02 <1.00 [facility] Comment: HCV antibody was non-reactive. There is no laboratory evidence of HCV infection. In most cases, no further action is required. However, if recent HCV exposure is suspected, a test for HCV RNA (test code 62600) is suggested. For additional information please refer to http://[employer]/faq/KON72s4 (This link is being provided for informational/ educational purposes only.) 10/24/2019 9:16 AM EDT Miranda Maravilla DO HISTORICAL/NON ORDERABLE LAB S Final Result [facility] [address] [place] [phone], * HIV 1/2 ANTIGEN/ANTIBODY,FOURTH GENERATION W/RFL (10/24/2019 [...] purpose. For additional information please refer to http://[employer] [employer] [facility]/faq/IHR577 (This link is being provided for informational/ [...] purpose. For additional information please refer to http://Where [employer].[facility]/faq/VRR660 (This link is being provided for informational/ [...] purpose. For additional information please refer to http://education.[employer]/faq/AOK664 (This link is being provided for informational/ educational purposes only.) The performance of this assay has not been clinically validated in patients less than 2 years old. 10/24/2019 9:16 AM EDT Miranda Maravilla DO LAB BLOOD ORDERABLES Final R esult [facility] [address] from Last 3 Months or Most Recently Relevant to Health Maintenance Insurance [facility] MEDICARE Advance Directives Documents on File Type Date Recorded Patient Water Resource Engineering Specialist Expl anation Advance Directives and Livin g Will 06/13/2023 3:52 PM HCP Form Care Teams Floor Cleaner Relationship Specialty Start Date End Date Miranda Maravilla DO [address] [place] [address] PCP - General Family Medicine 09/26/19
[2025-03-03 11:53] LABS: Hematocrit 44.8 % (37.0-47.0); Hemoglobin 13.4 g/dl (12.0-16.0); Mean Corpuscular HGB Conc 29.9 g/dl (31.0-35.0); Mean Corpuscular Hemoglobin 25.7 pg (27.0-33.0); Mean Corpuscular Volume 86.0 fL (80.0-98.0); NRBC Abs Auto 0.000 X10*3/uL (0.0-0.012); NRBC Pct Auto 0.0 /100WBC (0.0-0.2); Platelet Count 184 X10*3/uL (160-400); Red Blood Count 5.21 X10*6/uL (4.20-5.50); White Blood Count 6.4 X10*3/uL (4.8-10.8)
[2025-03-03 12:31] LABS: MANUAL DIFF FLAG NO
[2025-03-03 12:34] LABS: Alanine Aminotransferase 20 U/L (0-31); Albumin Level 4.0 g/dL (3.5-5.0); Alkaline Phosphatase 69 U/L (39-117); Anion Gap 11 (12-20); Aspartate Amino Transferase 28 U/L (5-31); Blood Urea Nitrogen 12 mg/dL (9-16); Calcium 9.4 mg/dL (8.4-10.2); Carbon Dioxide 37 mmol/L (22-29); Chloride 96 mmol/L (96-108); Cholesterol 178 mg/dL (<200); Estimated Glomerular Filt Rate > 60; Free T4 (Free Thyroxine) 0.97 ng/dL (0.71-1.85); HDL Cholesterol 83 mg/dL (>40); Potassium 4.1 mmol/L (3.3-5.1); Sodium 140 mmol/L (135-145); Thyroid Stimulating Hormone 2.08 uIU/mL (0.32-4.0); Total Protein 7.4 g/dL (6.5-8.0); Triglycerides 102 mg/dL (<150)
[2025-03-03 12:43] LABS: Imm Gran Abs Auto 0.03 X10*3/uL (0.00-0.03); Imm Gran Pct Auto 0.5 % (0.0-0.4); Lymphocytes Absolute Auto 1.1 X10*3/uL (1.2-4.9)
== END 2025-03-03 09:28 | disposition home or self-care (01) ==
LOC: HO.HHCL 09:27
PROVIDERS: PCP Family Medicine; Visit Provider Family Medicine
DX: C50.912 Malignant neoplasm of unspecified site of left female breast (principal); C77.9 Secondary and unspecified malignant neoplasm of lymph node, unspecified; K76.0 Fatty (change of) liver, not elsewhere classified; Z68.41 Body mass index [BMI] 40.0-44.9, adult; R73.03 Prediabetes; R79.9 Abnormal finding of blood chemistry, unspecified; E78.2 Mixed hyperlipidemia
CPT/HCPCS: 36415; 80053; 80061; 80076; 82105; 82248; 82306; 83036; 84439; 84443; 85025; 85027

== ENCOUNTER 2025-04-07 15:00 | Outpatient (RCR) | payer MEDICARE, MEDICAID, SELFPAY | END 2025-04-07 15:50 | disposition home or self-care (01) | LOC: HO.PT 15:00 | PROVIDERS: PCP Family Medicine; Visit Provider Physician Assistant | DX: M17.11 Unilateral primary osteoarthritis, right knee (principal) | CPT/HCPCS: 97110; 97116; 97162; 97530; 97535 ==